=== PATIENT | male | born 1930 | race Hispanic/Latino ===

== ENCOUNTER 2017-07-02 07:50 | Day surgery (SDC) | payer MEDICARE ==
[2017-06-25 08:27] VITALS: BMI 19.0
[2017-07-02] MEDS ORDERED: Sodium Chloride 0.9% 1,000 ML IV SCH (09:45)
[2017-07-02 11:09] VITALS: RESP 16
[2017-07-02 11:19] VITALS: BP 123/64; PULSE 59
[2017-07-02 13:04] VITALS: TEMP 98; O2SAT 100
== END 2017-07-02 12:11 | disposition home or self-care (01) ==
LOC: ENDO 07:50
PROVIDERS: ATTEND Internal Medicine Gastroenterology
DX: C76.0 Malignant neoplasm of head, face and neck (principal); R13.10 Dysphagia, unspecified
CPT/HCPCS: 43246; J0690; J7040 ×2

== ENCOUNTER 2017-07-04 13:07 | Emergency (ER) | payer MEDICARE ==
[2017-07-04 13:07] VITALS: BMI 19.0
[2017-07-04 13:17] VITALS: TEMP 97.8
[2017-07-04 14:00] LABS: BASO # 0.06 K/mm3 (0.0-2.0); BASO % 0.6 % (0.0-3.0); EOS # 0.8 (0.0-0.7); EOS % 7.4 % (1.5-5.0); GRAN # 7.05 (1.4-6.5); GRAN % 64.8 % (50.0-68.0); HEMATOCRIT 34.8 % (42.0-52.0); LYMPH # 1.9 (1.2-3.4); LYMPH % 17.8 % (22.0-35.0); MEAN CELL VOLUME 87.9 fl (80.0-105.0); MEAN PLATELET VOLUME 9.8 fl (7.0-11.0); MONO % 9.4 % (1.0-6.0); RED CELL DISTRIBUTION WIDTH 13.4 % (11.5-14.5); WHITE BLOOD COUNT 10.9 10^3/ul (4.5-11.0)
[2017-07-04 14:26] LABS: ALB/GLOB RATIO 1.2 (1.1-1.8); ALKALINE PHOSPHATASE 75 U/L (38-126); ALT/SGPT 20 U/L (7-56); AST/SGOT 31 U/L (17-59); BILIRUBIN,TOTAL 1.3 mg/dL (0.2-1.3); BLOOD UREA NITROGEN 18 mg/dL (7-21); CALCIUM 9.2 mg/dL (8.4-10.5); CARBON DIOXIDE 30 mmol/L (21-33); CHLORIDE 95 mmol/L (98-107); GFR AFRICAN-AMERICAN > 60; GLUCOSE,RANDOM 96 mg/dL (70-110); LIPASE 79 U/L (23-300); POTASSIUM 3.9 mmol/L (3.6-5.0); SODIUM 132 mmol/L (132-148); TOTAL PROTEIN 7.3 g/dL (5.8-8.3)
--- NOTE | 2017-07-04 14:39 | ED PDOC ---
Arrival/HPI - General Chief Complaint: Abdominal Pain Time Seen by Provider: 07/04/17 13:11 Historian: Patient - History of Present Illness Narrative History of Present Illness (Text): 07/04/17 14:34 A 86 year old male, whose past medical history includes throat cancer and recent PEG tube placement 2 days ago, presents to the emergency department complaining of pain to site of g-tube insertion since the procedure. Patient was seen by advertising dispatch clerks supervisor earlier today, who loosened adhesion of tube from abdominal pain. Patient reports his pain subsided but presented to the emergency room for further evaluation. Patient denies any fever, chills, nausea , vomiting, urinary symptoms, hematochezia, chest pain, shortness of breath, cough or any other complaints. Time/Duration: Other (2 days) Symptom Course: Unchanged Quality: Other Context: Home Past Medical History - Provider Review Nursing Documentation Reviewed: Yes - Cardiac Hx Cardiac Disorders: No Hx Pacemaker: No - Pulmonary Hx Respiratory Disorders: Yes Other/Comment: FORMER SMOKER - Neurological Hx Neurological Disorder: No - HEENT Hx HEENT Disorder: Yes Other/Comment: THROAT CA - Renal Hx Renal Disorder: No - Endocrine/Metabolic Hx Endocrine Disorders: No - Hematological/Oncological Hx Blood Disorders: Yes Hx Cancer: Yes - Integumentary Hx Dermatological Disorder: No - Musculoskeletal/Rheumatological Hx Musculoskeletal Disorders: No - Gastrointestinal Hx Gastrointestinal Disorders: No - Genitourinary/Gynecological Hx Genitourinary Disorders: No - Psychiatric Hx Psychophysiologic Disorder: No Hx Emotional Abuse: No Hx Physical Abuse: No Hx Substance Use: No - Surgical History Other/Comment: G TUBE, PORT R UPPER CHEST. - Anesthesia Hx Anesthesia: Yes - Suicidal Assessment Feels Threatened In Home Enviroment: No Family/Social History - Physician Review Nursing Documentation Reviewed: Yes Family/Social History: No Known Family HX Smoking Status: Former Smoker Hx Alcohol Use: Yes Frequency of alcohol use: Socially Hx Substance Use: No Allergies/Home Meds Allergies/Adverse Reactions: Allergies No Known Allergies Allergy (Verified 11/30/14 12:07) Home Medications: Home Meds Medication Instructions Recorded Confirmed Metoprolol Succinate [Metoprolol 50 mg PO DAILY 12/02/14 07/04/17 Succinate Xl] Aspirin [Ecotrin] 81 mg PO DAILY 06/25/17 07/04/17 Pravastatin Sodium [Pravachol] 20 mg PO DAILY 06/25/17 07/04/17 Balance Of Nature Fruits 1 tab PO TID 06/29/17 07/04/17 Balance Of Nature Veggies 1 tab PO TID 06/29/17 07/04/17 Clopidogrel [Plavix] 75 mg PO DAILY 06/29/17 07/04/17 Ubidecarenone [Coq10] 100 mg PO DAILY 06/29/17 07/04/17 Review of Systems - Physician Review All systems were reviewed & negative as marked: Yes - Review of Systems Constitutional: absent: Fevers, Night Sweats Respiratory: absent: SOB, Cough Cardiovascular: absent: Chest Pain Gastrointestinal: absent: Nausea, Vomiting, Hematochezia Genitourinary Male: absent: Dysuria, Frequency, Hematuria Musculoskeletal: Other (pain to site of g-tube insertion) Physical Exam Vital Signs Reviewed: Yes Vital Signs Temp Pulse Resp BP Pulse Ox 07/04/17 15:53 78 19 97 07/04/17 15:07 75 18 175/86 H 100 07/04/17 13:16 97.8 F 81 18 192/91 H 100 Temperature: Afebrile Blood Pressure: Hypertensive Pulse: Regular Respiratory Rate: Normal Appearance: Positive for: Well-Appearing, Non-Toxic, Comfortable Pain Distress: None Mental Status: Positive for: Alert and Oriented X 3 - Systems Exam Head: Present: Atraumatic, Normocephalic Pupils: Present: PERRL Extroacular Muscles: Present: EOMI Conjunctiva: Present: Normal Mouth: Present: Moist Mucous Membranes Neck: Present: Normal Range of Motion Respiratory/Chest: Present: Clear to Auscultation, Good Air Exchange, Other ( Port placed on right anterior chest wall with bruising around surgical wound). No: Respiratory Distress, Accessory Muscle Use Cardiovascular: Present: Murmurs (systolic), Normal S1, S2 Abdomen: Present: Normal Bowel Sounds, Feeding Tubes (g-tube in left lower quadrant with point tenderness around area, no drainage). No: Tenderness, Distention, Peritoneal Signs Back: Present: Normal Inspection Upper Extremity: Present: Normal Inspection. No: Cyanosis, Edema Lower Extremity: Present: Normal Inspection. No: Edema Neurological: Present: GCS=15, CN II-XII Intact, Speech Normal Skin: Present: Warm, Dry, Normal Color. No: Rashes Psychiatric: Present: Alert, Oriented x 3, Normal Insight, Normal Concentration Medical Decision Making ED Course and Treatment: 07/04/17 14:34 Impression: A 86 year old male with pain to site of g-tube insertion Plan: -- Abdomen and pelvis CT -- Labs -- Urine culture -- Reassess and disposition Progress Notes: - Lab Interpretations Lab Results: 07/04/17 13:45 07/04/17 13:45 Lab Results 07/04/17 13:45: Sodium 132, Potassium 3.9, Chloride 95 L, Carbon Dioxide 30, Anion Gap 10, BUN 18, Creatinine 0.8, Est GFR ( Amer) > 60, Est GFR (Non- Af Amer) > 60, Random Glucose 96, Calcium 9.2, Total Bilirubin 1.3, AST 31, ALT 20, Alkaline Phosphatase 75, Total Protein 7.3, Albumin 4.0, Globulin 3.3, Albumin/Globulin Ratio 1.2, Lipase 79 07/04/17 13:45: WBC 10.9, RBC 3.96, Hgb 11.5 L, Hct 34.8 L, MCV 87.9, MCH 29.0, MCHC 33.0, RDW 13.4, Plt Count 260, MPV 9.8, Gran % 64.8, Lymph % (Auto) 17.8 L , [place] % (Auto) 9.4 H, Eos % (Auto) 7.4 H, Baso % (Auto) 0.6, Gran # 7.05 H, Lymph # 1.9, [place] # 1.0 H, Eos # 0.8 H, Baso # 0.06 I have reviewed the lab results: Yes - RAD Interpretation Radiology Orders: 07/04/17 13:26 ABD & PELVIS W/O PO OR IV CONT [CT] Stat - Scribe Statement The provider has reviewed the documentation as recorded by the Scribe Marnie Stearns Provider Scribe Attestation: All medical record entries made by the Scribe were at my direction and personally dictated by me. I have reviewed the chart and agree that the record accurately reflects my personal performance of the history, physical exam, medical decision making, and the department course for this patient. I have also personally directed, reviewed, and agree with the discharge instructions and disposition. Disposition/Present on Arrival - Present on Arrival Any Indicators Present on Arrival: No History of DVT/PE: No History of Uncontrolled Diabetes: No Urinary Catheter: No History of Decub. Ulcer: No History Surgical Site Infection Following: None - Disposition Have Diagnosis and Disposition been Completed?: Yes Diagnosis: Abdominal pain Disposition: HOME/ ROUTINE Disposition Time: 15:20 Condition: GOOD Discharge Instructions (ExitCare): How to Use and Care for Your PEG Tube (ED) Additional Instructions: Thank you for letting us take care of you today. You were treated for abdominal pain and PEG tube check. The emergency medical care you received today was directed at your acute symptoms. If you were prescribed any medication, please fill it and take as directed. It may take several days for your symptoms to resolve. Return to the Emergency Department if your symptoms worsen, do not improve, or if you have any other problems. Please contact your doctor or call one of the physicians/clinics you have been referred to that are listed on the Patient Visit Information form that is included in your discharge packet. Bring any paperwork you were given at discharge with you along with any medications you are taking to your follow up visit. Our treatment cannot replace ongoing medical care by a primary care provider (PCP) outside of the emergency department. Thank you for allowing the [facility] team to be part of your care today. Follow up with your oncologist as scheduled. Please return to the emergency room if you have any concerns. Referrals: Sagar CARMONA,José Antonio Villa MD [Primary Care Provider] - Follow up with primary Forms: [employer] ([place])
--- NOTE | 2017-07-04 15:04 | CT ---
PROCEDURE: CT Abdomen and Pelvis without intravenous contrast HISTORY: contrast in tube for position check COMPARISON: None. TECHNIQUE: Without contrast.. Contrast Dose: Radiation dose: Total exam DLP = 313 mGy-cm. This CT exam was performed using one or more of the following dose reduction techniques: Automated exposure control, adjustment of the mA and/or kV according to patient size, and/or use of iterative reconstruction technique. FINDINGS: LOWER THORAX: Unremarkable. LIVER: Unremarkable. No gross lesion or ductal dilatation. GALLBLADDER AND BILE DUCTS: Unremarkable. PANCREAS: Unremarkable. No gross lesion or ductal dilatation. SPLEEN: Unremarkable. ADRENALS: Unremarkable. No mass. KIDNEYS AND URETERS: Unremarkable. No hydronephrosis. No solid mass. VASCULATURE: Unremarkable. No aortic aneurysm. BOWEL: There is moderate to severe constipation especially on the right side of the colon. The gastrostomy balloon tipped catheter can be seen position within the stomach. . This can be seen on axial image 65 series 2. APPENDIX: Unremarkable. Normal appendix. PERITONEUM: Unremarkable. No free fluid. No free air. LYMPH NODES: Unremarkable. No enlarged lymph nodes. BLADDER: Unremarkable. REPRODUCTIVE: Unremarkable. BONES: No acute fracture. OTHER FINDINGS: None. IMPRESSION: The gastrostomy balloon tipped catheter can be seen in position within the stomach. Moderate to severe constipation especially on the right side of the colon. No acute intra-abdominal findings
[2017-07-04 15:39] VITALS: BP 175/86
[2017-07-04 15:54] VITALS: PULSE 78; RESP 19; O2SAT 97
== END 2017-07-04 15:53 | disposition home or self-care (01) ==
LOC: ED 13:07
DX: R10.9 Unspecified abdominal pain (principal); Z87.891 Personal history of nicotine dependence

== ENCOUNTER 2017-08-27 02:01 | Inpatient (IN) | payer MEDICARE ==
[2017-08-27 02:02] VITALS: BMI 19.0
[2017-08-27] MEDS ORDERED: Morphine 4 mg/ml ISec IVP STA (03:20)
[2017-08-27] MEDS ORDERED: Sodium Chloride 0.9% 1,000 ML IV STA (03:20)
[2017-08-27 04:11] LABS: BASO # 0.01 K/mm3 (0.0-2.0); BASO % 0.1 % (0.0-3.0); EOS # 0.2 (0.0-0.7); EOS % 2.3 % (1.5-5.0); GRAN # 6.99 (1.4-6.5); GRAN % 83.8 % (50.0-68.0); HEMOGLOBIN 12.2 g/dL (14.0-18.0); LYMPH # 0.7 (1.2-3.4); MEAN CELL VOLUME 89.2 fl (80.0-105.0); MEAN CORPUSCULAR HEMOGLOBIN 29.8 pg (25.0-35.0); MEAN CORPUSCULAR HGB CONC 33.4 g/dl (31.0-37.0); MEAN PLATELET VOLUME 9.2 fl (7.0-11.0); MONO # 0.5 (0.1-0.6); MONO % 5.8 % (1.0-6.0); RBC 4.09 10^6/uL (3.5-6.1); RED CELL DISTRIBUTION WIDTH 14.1 % (11.5-14.5); WHITE BLOOD COUNT 8.3 10^3/ul (4.5-11.0)
[2017-08-27 04:14] LABS: VENOUS BLOOD GAS BASE EXCESS 5.5 mmol/L (0.0-2.0); VENOUS BLOOD GAS PO2 26 mm/Hg (30-55); VENOUS BLOOD PH 7.37 (7.32-7.43)
[2017-08-27 04:29] LABS: ALB/GLOB RATIO 1.1 (1.1-1.8); ALBUMIN 3.7 g/dL (3.0-4.8); ALT/SGPT 46 U/L (7-56); AST/SGOT 58 U/L (17-59); BLOOD UREA NITROGEN 18 mg/dL (7-21); CALCIUM 9.3 mg/dL (8.4-10.5); GFR AFRICAN-AMERICAN > 60; GFR NON-AFRICAN AMERICAN > 60
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
[2017-08-27] MEDS ORDERED: Iohexol 350 MG/100 ML VIAL ONE (06:46)
[2017-08-27 07:01] LABS: PH,URINE 7.5 (4.7-8.0); URINE APPEARANCE CLEAR (CLEAR); URINE BILIRUBIN NEGATIVE (NEGATIVE); URINE BLOOD NEGATIVE (NEGATIVE); URINE COLOR YELLOW (YELLOW); URINE GLUCOSE (UA) NEGATIVE (NEGATIVE); URINE LEUKOCYTE ESTERASE NEGATIVE Leu/uL (NEGATIVE); URINE NITRATE NEGATIVE (NEGATIVE); URINE PROTEIN NEGATIVE mg/dL (<30 mg/dL); URINE UROBILINOGEN 0.2 E.U./dL (<1 E.U./dL)
--- NOTE | 2017-08-27 07:46 | CT ---
EXAM: CT Neck With Intravenous Contrast CLINICAL HISTORY: 86 years old, male; Condition or disease; Cancer; Throat; Additional info: Throat cancer, radiation bee, lots of pain TECHNIQUE: Axial computed tomography images of the neck with intravenous contrast. All CT scans at this facility use one or more dose reduction techniques, viz.: automated exposure control; ma/kV adjustment per patient size (including targeted exams where dose is matched to indication; i.e. head); or iterative reconstruction technique. Coronal and sagittal reformatted images were created and reviewed. CONTRAST: 100 mL of omni 350 administered intravenously. COMPARISON: CT - NECK SOFT TISSUE W/WO CONTRAST 2015-09-15 13:49 FINDINGS: Nasopharynx: Unremarkable. Oropharynx: Unremarkable. No significant tonsillar enlargement. No peritonsillar abscess. Hypopharynx: Unremarkable. Larynx: Unremarkable. Normal epiglottis. Trachea: Unremarkable. Retropharyngeal space: Unremarkable. Submandibular/parotid glands: Unremarkable. Glands are normal in size. Thyroid: Unremarkable. No enlarged or calcified nodules. Bones/joints: No acute fracture. Soft tissues: There is significant induration and swelling involving the supraglottic soft tissues (series 3, image [id number]). This is nonspecific. Differential diagnosis includes residual/recurrent tumor as well as post radiation change. 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 There are moderate calcified atherosclerotic changes of the intracranial internal carotid arteries. There are calcified atherosclerotic changes of the cervical carotid arteries. Lymph nodes: Unremarkable. No lymphadenopathy. Lung apices: There is stable scarring at both lung apices, right worse than left. IMPRESSION: 1. 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 2. There is significant induration and swelling involving the supraglottic soft tissues (series 3, image [id number]). This is nonspecific. Differential diagnosis includes residual/recurrent tumor as well as post radiation change.
[2017-08-27] MEDS ORDERED: Vancomycin 1gm in NS 250ml 1 GM/250 ML BAG IVPB STA (08:47)
[2017-08-27] MEDS ORDERED: Piperacillin/Tazobact 3.375 gm 100 ML IVPB STA (08:48)
[2017-08-27] MEDS: Morphine 2 mg/ml ISec IVP PRN ×3 (10:54→23:56)
[2017-08-27] MEDS: Vancomycin 1gm in NS 250ml 1 GM/250 ML BAG IVPB SCH ×2 (11:00→23:56)
--- NOTE | 2017-08-27 11:55 | CP.PCM.CON ---
History of Present Illness - History of Present Illness History of Present Illness: 86 year old male with PMH of throat cancer, S/P port-a-cath placement, S/P PEG tube placement has been complaining of neck pain since 2 days ago. He has received multiple doses of radiation therapy since 3 weeks ago on the left side of the neck. He has developed open wounds on the left side of the neck and has been applying Silvadene cream. Currently the wounds are open with some serosanginous coating. He denies fever or chills, no nausea or vomiting but has not been eating well and relies on the PEG tube for nutrition, no headache or dizziness, no chest pain, no SOB, no abdominal pain, no diarrhea but constipated , no dysuria. Infectious Diseases consult is requested to further evaluate and manage. Review of Systems - Review of Systems All systems: reviewed and no additional remarkable complaints except (as per HPI ) Past Patient History - Past Social History Smoking Status: Former Smoker - CARDIAC Hx Cardiac Disorders: No Hx Pacemaker: No - PULMONARY Hx Respiratory Disorders: Yes Other/Comment: FORMER SMOKER - NEUROLOGICAL Hx Neurological Disorder: No - HEENT Hx HEENT Problems: Yes Other/Comment: THROAT CA - RENAL Hx Chronic Kidney Disease: No - ENDOCRINE/METABOLIC Hx Endocrine Disorders: No - HEMATOLOGICAL/ONCOLOGICAL Hx Blood Disorders: Yes Hx Cancer: Yes - INTEGUMENTARY Hx Dermatological Problems: No - MUSCULOSKELETAL/RHEUMATOLOGICAL Hx Musculoskeletal Disorders: No - GASTROINTESTINAL Hx Gastrointestinal Disorders: No - GENITOURINARY/GYNECOLOGICAL Hx Genitourinary Disorders: No - PSYCHIATRIC Hx Psychophysiologic Disorder: No Hx Emotional Abuse: No Hx Physical Abuse: No Hx Substance Use: No - SURGICAL HISTORY Other/Comment: G TUBE, PORT R UPPER CHEST. - ANESTHESIA Hx Anesthesia: Yes Meds Allergies/Adverse Reactions: Allergies Allergy/AdvReac Type Severity Reaction Status Date / Time No Known Allergies Allergy Verified 11/30/14 12:07 - Medications Medications: Current Medications Vancomycin HCl (Vancomycin 1gm) 1 gm in 250 mls @ 167 mls/hr IVPB STAT STA PRN Reason: Protocol Stop: 08/27/17 10:16 Physical Exam - Constitutional Appears: Cachectic, Chronically Ill - Head Exam Head Exam: NORMAL INSPECTION - ENT Exam ENT Exam: Mucous Membranes Moist - Neck Exam Neck exam: Negative for: Meningismus Additional comments: left side of the neck with open wounds with surrounding erythema and coating of serosanguinous discharge - Respiratory Exam Respiratory Exam: Decreased Breath Sounds - Cardiovascular Exam Cardiovascular Exam: +S1, +S2 - GI/Abdominal Exam GI & Abdominal Exam: Soft. absent: Tenderness Additional comments: PEg tube in place Results - Vital Signs Recent Vital Signs: Last Vital Signs Temp 98.6 F 08/27/17 06:00 Pulse 85 08/27/17 06:00 Resp 18 08/27/17 06:00 BP 140/71 08/27/17 06:00 Pulse Ox 100 08/27/17 06:00 - Labs Result Diagrams: 08/27/17 03:30 08/27/17 03:30 Assessment & Plan - Assessment and Plan (Free Text) Plan: Assessment Consider left neck skin and skin structure infection on top of radiation dermatitis throat cancer on radiation therapy S/P port-a-cath placement S/P PEG tube placement Plan Started the patient on Vancomycin and Zosyn pending blood cx, wound cx; will also order Bactroban ointment will monitor clinically overall prognosis is poor
[2017-08-27] MEDS: Piperacillin/Tazobact 3.375 gm 100 ML IVPB SCH ×2 (12:33→17:10)
[2017-08-27] MEDS ORDERED: Sodium Chloride 0.9% 1,000 ML IV SCH (23:45)
[2017-08-28] MEDS: Piperacillin/Tazobact 3.375 gm 100 ML IVPB SCH ×4 (02:00→17:39)
[2017-08-28] MEDS: Silver Sulfadiazine 1% Cream (25 gm) TP SCH ×4 (05:01→22:00)
[2017-08-28] MEDS: Morphine 2 mg/ml ISec IVP PRN ×3 (06:00→18:12)
[2017-08-28] MEDS: Vancomycin 1gm in NS 250ml 1 GM/250 ML BAG IVPB SCH ×2 (10:38→22:00)
[2017-08-28] MEDS ORDERED: Aluminum Hydroxide/Magnesium 30 ML, DiphenhydrAMINE 75 MG, Lidocaine 2% Viscous 30 ML PO PRN (11:57)
--- NOTE | 2017-08-28 12:43 | CP.PCM.PN ---
<Juan Massey - Last Filed: 08/28/17 12:43> Subjective - Date & Time of Evaluation Date of Evaluation: 08/28/17 Time of Evaluation: 12:40 - Subjective Subjective: Infectious disease progress note. Attending: Dr. Cali. Pt seen and examined at bedside. NO acute distress. No current complaints. Pt does feel better. Denies fevers, chills, vomiting, diarrhea, dysuria. Objective - Vital Signs/Intake and Output Vital Signs (last 24 hours): Temp Pulse Resp BP Pulse Ox 98.8 F 97 H 20 142/77 96 08/28/17 07:30 08/28/17 07:30 08/28/17 07:30 08/28/17 07:30 08/28/17 07:30 Intake and Output: 08/28/17 08/28/17 06:59 18:59 Intake Total 0 Output Total 350 Balance -350 - Medications Medications: Current Medications Aspirin (Aspirin Chewable) 81 mg PO DAILY [facility] Clopidogrel Bisulfate (Plavix) 75 mg PO DAILY [facility] Al Hydrox/Mg Hydrox/Simethicone 30 ml/Diphenhydramine HCl 75 mg/Lidocaine 30 ml 0 ml PO Q2H PRN PRN Reason: Mouth/Throat Pain Vancomycin HCl (Vancomycin 1gm) 1 gm in 250 mls @ 167 mls/hr IVPB Q12H [facility] PRN Reason: Protocol Last Admin: 08/28/17 10:38 Dose: 167 mls/hr Piperacillin Sod/Tazobactam Sod (Zosyn 3.375 In Ns 100ml) 100 mls @ 200 mls/hr IVPB Q6 [facility] PRN Reason: Protocol Stop: 09/03/17 12:01 Last Admin: 08/28/17 11:30 Dose: 200 mls/hr Sodium Chloride (Sodium Chloride 0.9%) 1,000 mls @ 40 mls/hr IV .Q24H [facility] Last Admin: 08/28/17 00:05 Dose: 40 mls/hr Metoprolol Tartrate (Lopressor) 50 mg PO DAILY [facility] Morphine Sulfate (Morphine) 2 mg IVP Q3H PRN PRN Reason: Pain, severe (8-10) Last Admin: 08/28/17 06:00 Dose: 2 mg Mupirocin (Bactroban Ointment) 0 gm TOP BID [facility] Last Admin: 08/28/17 11:28 Dose: 1 gm Pantoprazole Sodium (Protonix Inj) 40 mg IVP DAILY [facility] Silver Sulfadiazine (Silvadene 1% 25 Gm) 1 gm TP Q8 [facility] Last Admin: 08/28/17 05:59 Dose: 1 gm - Constitutional Appears: No Acute Distress, Cachectic, Chronically Ill - Head Exam Head Exam: ATRAUMATIC, NORMAL INSPECTION, NORMOCEPHALIC - Eye Exam Eye Exam: EOMI - Neck Exam Neck Exam: absent: Meningismus, Normal Inspection Additional comments: left side neck has open wounds with surrounding erythema and coating of serosanguinous discharge, improving - Respiratory Exam Respiratory Exam: absent: Respiratory Distress - Cardiovascular Exam Cardiovascular Exam: +S1, +S2 - GI/Abdominal Exam GI & Abdominal Exam: Soft, Normal Bowel Sounds. absent: Tenderness - Extremities Exam Extremities Exam: Full ROM, Normal Inspection - Neurological Exam Neurological Exam: Alert, Awake, Oriented x3 - Psychiatric Exam Psychiatric exam: Normal Affect, Normal Mood - Skin Skin Exam: Dry, Intact, Normal Color, Warm Assessment and Plan - Assessment and Plan (Free Text) Assessment: This is an 86 yo male with past medical hx of throat cancer, s/p port placement and peg placement, currently on chemo and radiation. Recently diagnosed with radiation dermatitis. ID consulted for r/o bacterial superinfection of radiation dermatitis and abx choice. 1. Radiation dermatitis/bacterial superinfection -continue bactroban -continue vancomycin 1 g q 12 hrs to cover staph and strep associated with skin structure infection -continue zosyn 3.375 g IV q 6 hrs to cover gram negative organisms -2 blood cultures drawn on 08/27 are negative x 24 hrs -UA negative -wound culture pending -pt has been afebrile, no leukocytosis today. -clinically improving discussed with Dr. Cali. <Jemal Cali - Last Filed: 08/28/17 15:10> Objective - Vital Signs/Intake and Output Vital Signs (last 24 hours): Temp Pulse Resp BP Pulse Ox 98.8 F 97 H 20 112/48 L 96 08/28/17 07:30 08/28/17 07:30 08/28/17 07:30 08/28/17 13:46 08/28/17 07:30 Intake and Output: 08/28/17 08/28/17 06:59 18:59 Intake Total 0 720 Output Total 350 300 Balance -350 420 - Medications Medications: Current Medications Aspirin (Aspirin Chewable) 81 mg PO DAILY [facility] Last Admin: 08/28/17 13:46 Dose: 81 mg Clopidogrel Bisulfate (Plavix) 75 mg PO DAILY [facility] Last Admin: 08/28/17 13:46 Dose: 75 mg Al Hydrox/Mg Hydrox/Simethicone 30 ml/Diphenhydramine HCl 75 mg/Lidocaine 30 ml 0 ml PO Q2H PRN PRN Reason: Mouth/Throat Pain Last Admin: 08/28/17 13:46 Dose: 30 ml Vancomycin HCl (Vancomycin 1gm) 1 gm in 250 mls @ 167 mls/hr IVPB Q12H [facility] PRN Reason: Protocol Last Admin: 08/28/17 10:38 Dose: 167 mls/hr Piperacillin Sod/Tazobactam Sod (Zosyn 3.375 In Ns 100ml) 100 mls @ 200 mls/hr IVPB Q6 [facility] PRN Reason: Protocol Stop: 09/03/17 12:01 Last Admin: 08/28/17 11:30 Dose: 200 mls/hr Sodium Chloride (Sodium Chloride 0.9%) 1,000 mls @ 40 mls/hr IV .Q24H [facility] Last Admin: 08/28/17 00:05 Dose: 40 mls/hr Metoprolol Tartrate (Lopressor) 50 mg PO DAILY [facility] Last Admin: 08/28/17 13:46 Dose: Not Given Morphine Sulfate (Morphine) 2 mg IVP Q3H PRN PRN Reason: Pain, severe (8-10) Last Admin: 08/28/17 14:30 Dose: 2 mg Mupirocin (Bactroban Ointment) 0 gm TOP BID [facility] Last Admin: 08/28/17 11:28 Dose: 1 gm Pantoprazole Sodium (Protonix Inj) 40 mg IVP DAILY [facility] Last Admin: 08/28/17 13:47 Dose: 40 mg Silver Sulfadiazine (Silvadene 1% 25 Gm) 1 gm TP Q8 [facility] Last Admin: 08/28/17 13:47 Dose: 1 gm Assessment and Plan - Assessment and Plan (Free Text) Assessment: Infectious Diseases Attending Physician Attestation Patient seen and examined, discussed with medical education manager. I have reviewed the patient's subjective and objective findings, assessment and plan, as well as labs and imaging. I agree with above assessment and plan. In addition, we will continue Vancomycin and Zosyn and will continue to monitor clinically. Continue bactroban as well.
[2017-08-28 16:36] LABS: BASO # 0.02 K/mm3 (0.0-2.0); BASO % 0.3 % (0.0-3.0); EOS # 0.3 (0.0-0.7); EOS % 4.2 % (1.5-5.0); GRAN # 5.16 (1.4-6.5); GRAN % 75.2 % (50.0-68.0); HEMOGLOBIN 10.5 g/dL (14.0-18.0); LYMPH # 0.4 (1.2-3.4); MEAN CELL VOLUME 88.9 fl (80.0-105.0); MEAN CORPUSCULAR HEMOGLOBIN 29.2 pg (25.0-35.0); MEAN CORPUSCULAR HGB CONC 32.9 g/dl (31.0-37.0); MEAN PLATELET VOLUME 9.4 fl (7.0-11.0); MONO % 14.3 % (1.0-6.0); RBC 3.59 10^6/uL (3.5-6.1); RED CELL DISTRIBUTION WIDTH 14.1 % (11.5-14.5); WHITE BLOOD COUNT 6.9 10^3/ul (4.5-11.0)
[2017-08-28 21:02] LABS: ALB/GLOB RATIO 0.9 (1.1-1.8); ALBUMIN 2.7 g/dL (3.0-4.8); ALT/SGPT 36 U/L (7-56); AST/SGOT 30 U/L (17-59); BLOOD UREA NITROGEN 14 mg/dL (7-21); CALCIUM 8.1 mg/dL (8.4-10.5); GFR AFRICAN-AMERICAN > 60; GFR NON-AFRICAN AMERICAN > 60
[2017-08-29] MEDS: Piperacillin/Tazobact 3.375 gm 100 ML IVPB SCH ×4 (00:47→17:54)
--- NOTE | 2017-08-29 01:03 | CON ---
DATE: 08/28/2017 LOCATION: This patient was seen and evaluated earlier today. The patient's family was at bedside. REASON FOR CONSULTATION: Evaluation of the feeding tube. HISTORY OF PRESENT ILLNESS: This 86-year-old patient with a past medical history of throat cancer on chemo and radiation presented with acute onset of neck pain for nearly 2 days duration. The patient was receiving radiation therapy. The patient was found to have some serosanguineous secretions from the left side of the neck area being treated with antibiotics, feeling slight better. The patient was also evaluated with speech therapist and for following evaluation he was told to have only sips of clear liquids. The patient is mainly using feeding tube. Denies any discomfort now at the feeding tube site. OTHER PAST MEDICAL HISTORY: Significant as above history. SOCIAL HISTORY: Ex-smoker. REVIEW OF SYSTEMS: Positive as above. PHYSICAL EXAMINATION: GENERAL: The patient is lying on the bed, not in acute distress. VITAL SIGNS: Temperature 99.4, pulse 87, blood pressure is 127/54, respirations 20, and O2 saturation 96%. HEENT: Atraumatic. NECK: The patient has a left side of the neck has erythema and discharging skin areas noticed. HEART: S1 and S2 heard. LUNGS: Bilateral air entry present. ABDOMEN: Soft. The PEG site was covered with the dressing which was removed. The site appears to be clear. EXTREMITIES: No cyanosis. No clubbing. NEUROLOGIC: Alert, oriented, moves all the extremities. LABORATORY DATA: Hemoglobin 10.5, hematocrit 31.9, WBC 6.9, platelets 290. Chemistry is essentially unremarkable. IMPRESSION: This 86-year-old patient status post throat cancer receiving radiation therapy and also chemotherapy, admitted with cellulitis of the neck, on antibiotics. Feeling slightly better. The patient was evaluated with speech therapist recommendations noted.. The patient was advised to take only small sips of clear liquids. The PEG site appears unremarkable, otherwise. The patient was advised not to cover the PEG tube site. No significant residue, tolerating the diet. Thank you very much for allowing us to participate in the care of the patient. Pj Foreman MD MTDDania
[2017-08-29] MEDS: Silver Sulfadiazine 1% Cream (25 gm) TP SCH ×3 (06:13→22:40)
[2017-08-29 06:23] LABS: HEMOGLOBIN 9.8 g/dL (14.0-18.0); MEAN CORPUSCULAR HEMOGLOBIN 29.9 pg (25.0-35.0); MEAN CORPUSCULAR HGB CONC 33.6 g/dl (31.0-37.0); MEAN PLATELET VOLUME 9.2 fl (7.0-11.0); RBC 3.28 10^6/uL (3.5-6.1); RED CELL DISTRIBUTION WIDTH 14.1 % (11.5-14.5); WHITE BLOOD COUNT 6.7 10^3/ul (4.5-11.0)
[2017-08-29 08:00] VITALS: RESP 22
[2017-08-29] MEDS: Vancomycin 1gm in NS 250ml 1 GM/250 ML BAG IVPB SCH ×2 (11:20→22:40)
[2017-08-29] MEDS: Morphine 2 mg/ml ISec IVP PRN (12:28)
[2017-08-29] MEDS ORDERED: POLYETHYLENE GLYCOL 3350 17 GM/Dose PACKET PO ONE (12:34)
--- NOTE | 2017-08-29 13:05 | CP.PCM.PN ---
<Juan Massey - Last Filed: 08/29/17 13:07> Subjective - Date & Time of Evaluation Date of Evaluation: 08/29/17 Time of Evaluation: 13:00 - Subjective Subjective: Infectious disease progress note. Attending: Dr. Cali. Pt seen and examined at bedside. No acute distress. No events overnight. Pt feels better. Dermatitis/cellulitis improving. Objective - Vital Signs/Intake and Output Vital Signs (last 24 hours): Temp Pulse Resp BP Pulse Ox 97.6 F 87 22 130/69 96 08/29/17 07:59 08/29/17 07:59 08/29/17 07:59 08/29/17 07:59 08/29/17 07:59 Intake and Output: 08/29/17 08/29/17 06:59 18:59 Intake Total 360 Output Total 1350 Balance -990 - Medications Medications: Current Medications Aspirin (Aspirin Chewable) 81 mg PEG DAILY [facility] Last Admin: 08/29/17 10:45 Dose: 81 mg Clopidogrel Bisulfate (Plavix) 75 mg PEG DAILY [facility] Last Admin: 08/29/17 10:45 Dose: 75 mg Al Hydrox/Mg Hydrox/Simethicone 30 ml/Diphenhydramine HCl 75 mg/Lidocaine 30 ml 0 ml PO Q2H PRN PRN Reason: Mouth/Throat Pain Last Admin: 08/28/17 13:46 Dose: 30 ml Vancomycin HCl (Vancomycin 1gm) 1 gm in 250 mls @ 167 mls/hr IVPB Q12H [facility] PRN Reason: Protocol Last Admin: 08/29/17 11:20 Dose: 167 mls/hr Piperacillin Sod/Tazobactam Sod (Zosyn 3.375 In Ns 100ml) 100 mls @ 200 mls/hr IVPB Q6 [facility] PRN Reason: Protocol Stop: 09/03/17 12:01 Last Admin: 08/29/17 11:21 Dose: 200 mls/hr Sodium Chloride (Sodium Chloride 0.9%) 1,000 mls @ 40 mls/hr IV .Q24H [facility] Last Admin: 08/28/17 00:05 Dose: 40 mls/hr Metoprolol Tartrate (Lopressor) 50 mg PEG DAILY [facility] Last Admin: 08/29/17 10:45 Dose: 50 mg Morphine Sulfate (Morphine) 2 mg IVP Q3H PRN PRN Reason: Pain, severe (8-10) Last Admin: 08/29/17 12:28 Dose: 2 mg Mupirocin (Bactroban Ointment) 0 gm TOP BID [facility] Last Admin: 08/28/17 17:53 Dose: Not Given Pantoprazole Sodium (Protonix Inj) 40 mg IVP DAILY [facility] Last Admin: 08/29/17 10:45 Dose: 40 mg Silver Sulfadiazine (Silvadene 1% 25 Gm) 1 gm TP Q8 [facility] Last Admin: 08/29/17 06:13 Dose: 1 gm - Labs Labs: 08/29/17 06:00 08/28/17 20:09 - Constitutional Appears: No Acute Distress - Head Exam Head Exam: ATRAUMATIC, NORMAL INSPECTION, NORMOCEPHALIC - Eye Exam Eye Exam: EOMI - Neck Exam Neck Exam: absent: Full ROM, Normal Inspection Additional comments: radiation dermatitis along with signs of cellulitis, clinically improving - Respiratory Exam Respiratory Exam: NORMAL BREATHING PATTERN. absent: Respiratory Distress - Cardiovascular Exam Cardiovascular Exam: +S1, +S2 - GI/Abdominal Exam GI & Abdominal Exam: Soft, Normal Bowel Sounds. absent: Tenderness - Extremities Exam Extremities Exam: Full ROM, Normal Inspection - Back Exam Back Exam: NORMAL INSPECTION - Neurological Exam Neurological Exam: Alert, Awake, Oriented x3 - Psychiatric Exam Psychiatric exam: Normal Affect, Normal Mood - Skin Skin Exam: Dry, Intact, Normal Color, Warm Assessment and Plan - Assessment and Plan (Free Text) Assessment: This is an 86 yo male with past medical hx of throat cancer, s/p port placement and peg placement, currently on chemo and radiation. Recently diagnosed with radiation dermatitis. ID consulted for r/o bacterial superinfection of radiation dermatitis and abx choice. 1. Radiation dermatitis/bacterial superinfection -continue bactroban -continue vancomycin 1 g q 12 hrs to cover staph and strep associated with skin structure infection -continue zosyn 3.375 g IV q 6 hrs to cover gram negative organisms -2 blood cultures drawn on 08/27 are negative x 48 hrs -UA negative -wound culture pending -pt has been afebrile, no leukocytosis today. -clinically improving discussed with Dr. Cali. <Jemal Cali - Last Filed: 08/29/17 17:01> Objective - Vital Signs/Intake and Output Vital Signs (last 24 hours): Temp Pulse Resp BP Pulse Ox 97.6 F 87 22 130/69 96 08/29/17 07:59 08/29/17 07:59 08/29/17 07:59 08/29/17 07:59 08/29/17 07:59 Intake and Output: 08/29/17 08/29/17 06:59 18:59 Intake Total 360 Output Total 1350 800 Balance -990 -800 - Medications Medications: Current Medications Aspirin (Aspirin Chewable) 81 mg PEG DAILY [facility] Last Admin: 08/29/17 10:45 Dose: 81 mg Clopidogrel Bisulfate (Plavix) 75 mg PEG DAILY [facility] Last Admin: 08/29/17 10:45 Dose: 75 mg Al Hydrox/Mg Hydrox/Simethicone 30 ml/Diphenhydramine HCl 75 mg/Lidocaine 30 ml 0 ml PO Q2H PRN PRN Reason: Mouth/Throat Pain Last Admin: 08/28/17 13:46 Dose: 30 ml Vancomycin HCl (Vancomycin 1gm) 1 gm in 250 mls @ 167 mls/hr IVPB Q12H [facility] PRN Reason: Protocol Last Admin: 08/29/17 11:20 Dose: 167 mls/hr Piperacillin Sod/Tazobactam Sod (Zosyn 3.375 In Ns 100ml) 100 mls @ 200 mls/hr IVPB Q6 [facility] PRN Reason: Protocol Stop: 09/03/17 12:01 Last Admin: 08/29/17 11:21 Dose: 200 mls/hr Sodium Chloride (Sodium Chloride 0.9%) 1,000 mls @ 40 mls/hr IV .Q24H [facility] Last Admin: 08/28/17 00:05 Dose: 40 mls/hr Metoprolol Tartrate (Lopressor) 50 mg PEG DAILY [facility] Last Admin: 08/29/17 10:45 Dose: 50 mg Morphine Sulfate (Morphine) 2 mg IVP Q3H PRN PRN Reason: Pain, severe (8-10) Last Admin: 08/29/17 12:28 Dose: 2 mg Mupirocin (Bactroban Ointment) 0 gm TOP BID [facility] Last Admin: 08/29/17 15:31 Dose: 1 gm Pantoprazole Sodium (Protonix Inj) 40 mg IVP DAILY [facility] Last Admin: 08/29/17 10:45 Dose: 40 mg Silver Sulfadiazine (Silvadene 1% 25 Gm) 1 gm TP Q8 [facility] Last Admin: 08/29/17 15:30 Dose: 1 gm - Labs Labs: 08/29/17 06:00 08/28/17 20:09 Assessment and Plan - Assessment and Plan (Free Text) Assessment: Infectious Diseases Attending Physician Attestation Patient seen and examined, discussed with medical dosimetrist. I agree with the above findings, assessment and plan.
--- NOTE | 2017-08-29 18:47 | CP.PCM.PN ---
<Kellen,Kovil V - Last Filed: 08/30/17 00:57> Objective - Vital Signs/Intake and Output Vital Signs (last 24 hours): Temp Pulse Resp BP Pulse Ox 97.6 F 87 22 130/69 96 08/29/17 07:59 08/29/17 07:59 08/29/17 07:59 08/29/17 07:59 08/29/17 07:59 Intake and Output: 08/29/17 08/30/17 18:59 06:59 Intake Total 240 Output Total 800 400 Balance -800 -160 - Medications Medications: Current Medications Aspirin (Aspirin Chewable) 81 mg PEG DAILY [facility] Last Admin: 08/29/17 10:45 Dose: 81 mg Clopidogrel Bisulfate (Plavix) 75 mg PEG DAILY [facility] Last Admin: 08/29/17 10:45 Dose: 75 mg Al Hydrox/Mg Hydrox/Simethicone 30 ml/Diphenhydramine HCl 75 mg/Lidocaine 30 ml 0 ml PO Q2H PRN PRN Reason: Mouth/Throat Pain Last Admin: 08/28/17 13:46 Dose: 30 ml Vancomycin HCl (Vancomycin 1gm) 1 gm in 250 mls @ 167 mls/hr IVPB Q12H SIA PRN Reason: Protocol Last Admin: 08/29/17 22:40 Dose: 167 mls/hr Piperacillin Sod/Tazobactam Sod (Zosyn 3.375 In Ns 100ml) 100 mls @ 200 mls/hr IVPB Q6 SIA PRN Reason: Protocol Stop: 09/03/17 12:01 Last Admin: 08/29/17 17:54 Dose: 200 mls/hr Sodium Chloride (Sodium Chloride 0.9%) 1,000 mls @ 40 mls/hr IV .Q24H [facility] Last Admin: 08/28/17 00:05 Dose: 40 mls/hr Metoprolol Tartrate (Lopressor) 50 mg PEG DAILY [facility] Last Admin: 08/29/17 10:45 Dose: 50 mg Morphine Sulfate (Morphine) 2 mg IVP Q3H PRN PRN Reason: Pain, severe (8-10) Last Admin: 08/29/17 12:28 Dose: 2 mg Mupirocin (Bactroban Ointment) 0 gm TOP BID [facility] Last Admin: 08/29/17 15:31 Dose: 1 gm Pantoprazole Sodium (Protonix Inj) 40 mg IVP DAILY [facility] Last Admin: 08/29/17 10:45 Dose: 40 mg Silver Sulfadiazine (Silvadene 1% 25 Gm) 1 gm TP Q8 [facility] Last Admin: 08/29/17 22:40 Dose: 1 gm - Labs Labs: 08/29/17 06:00 08/28/17 20:09 Attending/Attestation - Attestation I have personally seen and examined this patient.: Yes I have fully participated in the care of the patient.: Yes I have reviewed all pertinent clinical information, including history, physical exam and plan: Yes Notes (Text): This is an addendum to GI progress report dictated by Cristela Liu APN.The patient was seen and examined earlier. Medical records, lab studies, imagings were reviewed. Last 24 hours events reviewed. Agreed with the above treatment plan as outlined in Cristela Liu APN's notes the with the addition of the following PEG site appeared clear Start her on laxatives for constipation Continue antibiotics as per ID Oncological follow-up 08/30/17 00:57 <Cristela Liu J - Last Filed: 08/31/17 10:57> Subjective - Date & Time of Evaluation Date of Evaluation: 08/29/17 Time of Evaluation: 11:45 - Subjective Subjective: Seen and examined at the bedside earlier today, chart reviewed. Patient continues to tolerate the Jevity feedings and denies any nausea, vomiting, or abdominal pain. Patient denies any neck pain, reports that slight improvement. Complains of constipation, no BM since Sunday. He normally takes Amitiza at home. Explained to patient its nonformulary at the hospital, patient states he has no one to bring medication from home. No reports of overt GI bleed or acute overnight events. Objective - Vital Signs/Intake and Output Vital Signs (last 24 hours): Temp Pulse Resp BP Pulse Ox 97.6 F 87 22 130/69 96 08/29/17 07:59 08/29/17 07:59 08/29/17 07:59 08/29/17 07:59 08/29/17 07:59 Intake and Output: 08/29/17 08/29/17 06:59 18:59 Intake Total 360 Output Total 1350 800 Balance -990 -800 - Medications Medications: Current Medications Aspirin (Aspirin Chewable) 81 mg PEG DAILY [facility] Last Admin: 08/29/17 10:45 Dose: 81 mg Clopidogrel Bisulfate (Plavix) 75 mg PEG DAILY [facility] Last Admin: 08/29/17 10:45 Dose: 75 mg Al Hydrox/Mg Hydrox/Simethicone 30 ml/Diphenhydramine HCl 75 mg/Lidocaine 30 ml 0 ml PO Q2H PRN PRN Reason: Mouth/Throat Pain Last Admin: 08/28/17 13:46 Dose: 30 ml Vancomycin HCl (Vancomycin 1gm) 1 gm in 250 mls @ 167 mls/hr IVPB Q12H SIA PRN Reason: Protocol Last Admin: 08/29/17 11:20 Dose: 167 mls/hr Piperacillin Sod/Tazobactam Sod (Zosyn 3.375 In Ns 100ml) 100 mls @ 200 mls/hr IVPB Q6 SIA PRN Reason: Protocol Stop: 09/03/17 12:01 Last Admin: 08/29/17 17:54 Dose: 200 mls/hr Sodium Chloride (Sodium Chloride 0.9%) 1,000 mls @ 40 mls/hr IV .Q24H [facility] Last Admin: 08/28/17 00:05 Dose: 40 mls/hr Metoprolol Tartrate (Lopressor) 50 mg PEG DAILY [facility] Last Admin: 08/29/17 10:45 Dose: 50 mg Morphine Sulfate (Morphine) 2 mg IVP Q3H PRN PRN Reason: Pain, severe (8-10) Last Admin: 08/29/17 12:28 Dose: 2 mg Mupirocin (Bactroban Ointment) 0 gm TOP BID [facility] Last Admin: 08/29/17 15:31 Dose: 1 gm Pantoprazole Sodium (Protonix Inj) 40 mg IVP DAILY [facility] Last Admin: 08/29/17 10:45 Dose: 40 mg Silver Sulfadiazine (Silvadene 1% 25 Gm) 1 gm TP Q8 [facility] Last Admin: 08/29/17 15:30 Dose: 1 gm - Labs Labs: 08/29/17 06:00 08/28/17 20:09 - Constitutional Appears: No Acute Distress - Eye Exam Eye Exam: Normal appearance. absent: Scleral icterus - ENT Exam ENT Exam: Mucous Membranes Moist - Neck Exam Additional comments: left-sided neck positive erythema/cellulitis no drainage noted - Cardiovascular Exam Cardiovascular Exam: +S1, +S2 - GI/Abdominal Exam GI & Abdominal Exam: Soft, Normal Bowel Sounds. absent: Guarding, Tenderness, Rebound Additional comments: positive PEG, insertion site no erythema or discharge, nontender - Neurological Exam Neurological Exam: Alert, Awake, Oriented x3 - Skin Skin Exam: Dry, Warm Assessment and Plan - Assessment and Plan (Free Text) Assessment: Assessment: Throat cancer, on radiation and chemotherapy Left side neck cellulitis Constipation Plan: Continue Jevity feedings and check residuals On aspirin and Plavix Continue GI prophylaxis Give a dose of MiraLAX Seen and discussed with Dr. Bailey.
--- NOTE | 2017-08-29 19:33 | HP ---
The patient is currently in room 562, bed 2. The patient is in the ER overnight. HISTORY OF PRESENT ILLNESS: This is an 86-year-old male who presented to the ER with increasing and worsening pain and oozing of serous fluid from the left side of his neck where he has open wounds. The patient currently has a diagnosis and is on ongoing treatment for stage LALO supraglottic laryngeal carcinoma with concurrent radiation therapy and weekly Erbitux therapy. The patient has a PEG tube in place. He is in the last stages of his radiation and probably chemo treatments. He was seen in our office prior to this, it might be 4 days ago when he was in weakened state but he was doing his PEG feedings and is thin, even though was at and was broken down in couple of places while getting topical Silvadene cream and the symptoms worsened over the weekend and hence he came to the emergency room. The patient has been having severe pain in the back of the neck, so instead of going to the radiation department, the patient decided to come to the emergency room because of the worsening pain. The patient denies any fevers, chills, chest pain, shortness of breath, nausea, vomiting, diarrhea, urinary symptoms, back pain, headache, dizziness, or any other complaints. He has been having increasing odynophagia. He has been taking his pills, crushing them and taking them with either apple sauce or just plain water after crushing it. Most of the other medicines he tried to self administer himself through the PEG tube. The patient has been giving himself fluids plus Jevity up to 5 to 6 cans a day through the PEG tube and even though he has lost weight, he did not lose more than 10% of his body weight.. PAST MEDICAL HISTORY: Significant for the fact that he has severe coronary artery disease, status post coronary artery bypass surgery. He also has history of multiple superficial skin tumors, more than 33 being either excised or lysed over the past several years. He has a history of shoulder replacement. He has a history of knee replacement as well. The patient is under the care of Dr. Rausch and Dr. Casas for his cardiologic issues. The patient denies any history of hemoptysis. No history of hematochezia. His PEG tube initially was bothering him, has not bothered him over the last few weeks while he has been getting his combined treatment. HOME MEDICATIONS: Reviewed through the office chart. The patient is on metoprolol 30 mg once a day. He is on aspirin once a day. He is on Plavix once a day, and he has been on Silvadene cream topically for his neck. He has also been using Bactroban topically around his PEG site and he said he required no pain medicines per se, and he has been on enteral feedings through his PEG tube that he has been self administering. The patient has been monitored in the radiation oncology department in [place] on a consistent basis, at least several times in a week, up to 4 times. REVIEW OF SYSTEMS: A 12-system review was done and except per the HPI what is mentioned, others are all negative. PHYSICAL EXAMINATION VITAL SIGNS: Stable. T-max is 97.9, pulse is 80, respirations 16, pulse ox is 99, and blood pressure is 135/73. The patient is afebrile. GENERAL: The patient appears to be nontoxic, comfortable. Pain scale on a scale of 0 to 10 is at least 4 to 5. Mostly the pain is in the nape of the neck and radiating down to the lateral aspect on the left side related to the extent of skin breakdown from radiation dermatitis with cumulative toxicity associated with the Erbitux as well. The patient is mentally alert, oriented x3. HEENT: Head is normocephalic and atraumatic. Conjunctivae are pale. Sclerae are anicteric. Pupils are equally reactive to light and accommodation. Examination of the oropharynx reveals the mucous membranes to be irritated. The patient has grade 2 mucositis. No gross oropharyngeal lesions are noted. Tongue appears to be on the dry side. NECK: Examination of the neck reveals range of motion to be fine. The patient has extensive skin breakdown, specifically on the left side of the neck and the nape of the neck. With full-thickness skin breakdown and with open wounds, regarding the accessory muscle use. CARDIOVASCULAR: Examination of the cardiovascular system reveals PMI is in the fifth intercostal space inside the midclavicular line. S1 and S2 are normal. No gallop or murmur is heard. ABDOMEN: Soft and nontender. No rebound rigidity or guarding is noted. PEG tube is in place. Site of the PEG tube insertion shows no evidence of infection. BACK: Examination of his back reveals it to be normal to inspection. EXTREMITIES: Upper and lower extremities reveal no cyanosis, clubbing, or edema. NEUROLOGICAL: Reveals no focal deficit. PSYCHIATRIC: The patient is awake, alert, and oriented. /RECTAL: Deferred. LYMPHATICS: There is no evidence of adenopathy in the neck, axilla, groin. SKIN: Skin is warm and dry. Turgor is slightly decreased with extensive skin changes secondary to radiation on both sides of the neck and on the anterior chest wall. There is full-thickness skin breakdown in the nape of the neck on the left side of neck. ASSESSMENT: An 86-year-old male with stage LALO supraglottic laryngeal carcinoma, currently on chemotherapy and radiation. Chemotherapy consisting of Erbitux, admitted to the hospital with worsening pain secondary to radiation-induced dermatitis along with Erbitux, with full-thickness skin tear, currently admitted to the hospital for both topical therapy and intravenous antibiotics. PLAN: The patient has already been started on broad-spectrum antibiotics with vancomycin and Zosyn. The patient is going to be seen by ID, has been already started on enteral feedings with Jevity at 40 mL an hour. In addition to that, we are going to have GI see him to address the issues as far as him able to swallow some of his pills. In the meantime, we will just keep him on clear sips of fluid, and radiation is currently on hold. We will get Radiation Oncology to make some comment as to the plan for additional radiation. Further treatments will all depend on his response to the initial antibiotics and topical therapy with Silvadene. We will get ENT consultation as well to monitor the patient is very careful. IV fluids have also been initiated. We will get Cardiology on board once the patient is stabilized. Home meds have been reviewed and have been noted as well. Time spent with the patient is about an hour to collate all the facts and to discuss with the patient what our treatment plans are and to speak to Dr. Tejada, the radiation oncologist and to the ID specialist as well. Mustapha Smith MD [facility] # [id number]
[2017-08-30] MEDS: Piperacillin/Tazobact 3.375 gm 100 ML IVPB SCH ×4 (01:32→17:46)
--- NOTE | 2017-08-30 04:11 | PN ---
DATE: 08/29/2017 ONCOLOGY PROGRESS NOTE LOCATION: The patient is in room 562, bed 2. SUBJECTIVE: This patient is seen and examined at the bedside. Charts reviewed. Patient continues to tolerate both the Jevity feedings plus he is taking clear liquids by mouth without having any significant choking sensation. No nausea, no vomiting, no significant abdominal pain. Previously noted neck pain appears to be significantly improved. Left neck area, on the nape of the neck area, where he was having pain has significantly improved since the use of the Silvadene cream and continuing the IV antibiotics. Patient complains of constipation without any bowel movements on Sunday. He normally takes Amitiza. The patient is probably going to get his home medications, which he can continue in the hospital. No overt symptoms of GI bleeding or any acute events overnight. PHYSICAL EXAMINATION: GENERAL: The patient is examined in bed. VITAL SIGNS: T-max is 97.6; pulse is 87; respirations 20; blood pressure is 130/90, 130/69; pulse ox is 96% on room air. HEENT: Head is normocephalic, atraumatic. Conjunctivae pale. Sclerae is anicteric. Pupils are equally reactive to light and accommodation. NECK: Examination of the neck reveals the ulcerations secondary to skin breakdown from radiation dermatitis, radiation necrosis in combination with the Erbitux, it is improved; it is scaling, it is healing, currently on vancomycin and Zosyn along with topical Silvadene. Patient's voice is still hoarse. Swallowing is better. He is able to take small sips of liquids. LUNGS: Relatively clear to percussion and auscultation with scattered wheezes. CARDIOVASCULAR: Examination of cardiovascular system reveals S1, S2 to be normal. No gallop or murmurs heard. ABDOMEN: Soft, nontender. No rebound, rigidity, or guarding is noted. PEG is in place. Site of the PEG insertion appears to be good without any evidence of infection. EXTREMITIES: Examination of the lower extremities reveals no cyanosis, clubbing, or edema. SKIN: Skin turgor is decreased. No skin lesions are noted except for radiation changes in the left side of the neck, underneath the neck related to the radiation. GENITOURINARY AND RECTAL: Deferred. NEUROLOGIC: His higher function seems to be normal. No focal deficits are noted. MEDICATIONS: Patient's medications were reviewed. He is currently on aspirin 81 mg daily, Plavix 75 mg via PEG daily, magic mouth wash q. 2 hours as needed, vancomycin 1 g IV piggyback q.12 hours. He is on Zosyn 3.375 mg IV piggyback q. 6 hours. He is on IV fluids at 40 mL an hour, metoprolol tartrate 50 mg via PEG daily, morphine sulphate 2 mg IV q. 3 hours p.r.n. for pain, Bactroban ointment topically b.i.d. to the PEG site, pantoprazole/Protonix 40 mg IV daily. He is on Silvadene 1% to the wounds on the left side of the neck and the nape of the neck related to the radiation. LABORATORY DATA: From today was reviewed. White count is 6.7, hemoglobin 9.8, hematocrit 29.2, platelet count 270,000. Sodium is 133, K is 3.4, chloride is 101, CO2 is 29, BUN is 18, creatinine 0.8. Blood sugar is 113. PLAN: Patient to continue current IV antibiotics. Radiation is on hold. We will check with Dr. Tejada as to what the plan should be and if we are going to scrap the last two doses of radiation. Meantime, we are going to request Dr. Casas to see the patient while he is in the hospital. Meantime, continue Jevity feedings through the PEG tube at 40 mL an hour. Once the patient starts feeling a little bit better, as well so we can get more nutrition into him. TIME SPENT WITH THE PATIENT: At least 45 minutes correlating all the findings and discussing with the patient, of which more than 50% of the time was spent in [id number] contact with the patient and counseling him regarding the findings and his overall prognosis and the direction in which we are headed. Mustapha Smith MD
[2017-08-30] MEDS: Silver Sulfadiazine 1% Cream (25 gm) TP SCH ×2 (05:53→17:46)
[2017-08-30 06:40] LABS: HEMOGLOBIN 10.5 g/dL (14.0-18.0); MEAN CELL VOLUME 88.5 fl (80.0-105.0); MEAN CORPUSCULAR HEMOGLOBIN 29.4 pg (25.0-35.0); MEAN CORPUSCULAR HGB CONC 33.2 g/dl (31.0-37.0); MEAN PLATELET VOLUME 9.3 fl (7.0-11.0); RBC 3.57 10^6/uL (3.5-6.1); RED CELL DISTRIBUTION WIDTH 13.9 % (11.5-14.5); WHITE BLOOD COUNT 6.1 10^3/ul (4.5-11.0)
[2017-08-30 07:18] LABS: ALBUMIN 2.8 g/dL (3.0-4.8); ALT/SGPT 36 U/L (7-56); AST/SGOT 35 U/L (17-59); BLOOD UREA NITROGEN 11 mg/dL (7-21); GFR AFRICAN-AMERICAN > 60; GFR NON-AFRICAN AMERICAN > 60
--- NOTE | 2017-08-30 08:16 | CON ---
DATE: 08/29/2017 CONSULTING PHYSICIAN: Javi Canela DO REFERRING PHYSICIAN: Mustapha Smith MD REASON FOR CONSULTATION: Cellulitis of the neck and history of throat cancer. HISTORY OF PRESENT ILLNESS: This is an 86-year-old male known to our Otolaryngology practice, who has past medical history of laryngeal squamous cell carcinoma diagnosed in 05/2017. The patient also has a history of coronary artery disease status post CABG in 2014, hypertension, dyslipidemia, several vascular surgeries including left lower extremity fem-pop surgery, femoral endarterectomy. He has been admitted to [facility] with radiation, dermatitis to his neck as of 08/27/2017. The patient was diagnosed with laryngeal cancer on a biopsy in 05/2017, which we performed at [facility] since then he has been undergoing radiation and chemotherapy. He just finished 7 weeks of radiation therapy and as one week left of chemotherapy. The last I saw him was in 06/2017 in my office. He presented to [facility] with swelling and cellulitic changes to his left and posterior neck. Since admission, he has been treated for cellulitis with broad-spectrum antibiotics and Emollient to his left neck. He states he is feeling much better and that his neck pain has been improving. Otherwise, he denies fever, chills, chest pain, ear, nose and throat complaints. He does note that he has been unable to swallow and eat during his treatment. He has been fed via PEG tube. He denies any difficulty breathing, shortness of breath or airway complaints. PAST MEDICAL HISTORY: As outlined above. PAST SURGICAL HISTORY: As outlined above. ALLERGIES: HE HAS NO KNOWN DRUG ALLERGIES. MEDICATIONS: He is currently on aspirin, Plavix, metoprolol, Mupirocin ointment, Protonix, Silver sulfadiazine 1% ointment, vancomycin and Zosyn. SOCIAL HISTORY: He smokes for about 30 years prior to his diagnosis of laryngeal cancer. REVIEW OF SYSTEMS: Negative as per HPI. PHYSICAL EXAMINATION GENERAL: He is awake, alert and oriented x3. No acute distress. Sitting comfortably. VITAL SIGNS: Temperature is 98.8, heart rate 97, blood pressure 147/77, respirations are 20 and O2 saturation is 96% on room air. HEENT: Head is atraumatic and normocephalic. Pupils are equal, round and reactive to light. Extraocular movements intact. External auricles are unremarkable. Nodes are unremarkable. Oral cavity; oropharynx mucosa is dry. Tongue is mobile and midline. Uvula is midline. NECK: He does have a wide area of dermatitis to his left and posterior neck extending from his auricle down to his clavicles, which is covered at this point in Emollient. Respirations are unlabored. Voice is hoarse. IMAGING: He has a CT soft tissue of the neck, which was performed on 08/27/2017 demonstrates induration . No abscesses noted. LABORATORY DATA: He has a white blood cell count of 6.7, hemoglobin 9.8, hematocrit 29.2 and platelets are 275. Sodium 136, potassium 3.4, bicarb 29, BUN 14, creatinine 0.8, glucose 118, calcium is , total protein 5.5 and albumin 2.7. ASSESSMENT AND PLAN: This is an 86-year-old male with including laryngeal cancer diagnosed in 2017, status post radiation and chemotherapy, who presents to [facility] for neck pain associated with radiation dermatitis. We will continue supportive measures at this point with sulfadiazine and Bactroban ointment to his neck as he has been improving clinically with this treatment. The antibiotics should be continued as per Infectious Disease consult. No acute ear, nose and throat intervention at this time. The patient was instructed to follow up as an outpatient once his chemoradiation therapy is completed. We will follow him for of his tumor on an outpatient basis. The patient verbalized understanding and will come to see us in the clinic. Thank you for allowing us to participate in the patient's care. Javi Canela DO
[2017-08-30 08:48] VITALS: BP 163/67; PULSE 82; TEMP 97.4; O2SAT 97
[2017-08-30] MEDS ORDERED: Alum-Mag Hydrox-Simethicone Susp (30 mL) ONE (10:48)
[2017-08-30] MEDS: Vancomycin 1gm in NS 250ml 1 GM/250 ML BAG IVPB SCH ×2 (11:00→21:37)
--- NOTE | 2017-08-30 11:50 | CP.PCM.PN ---
Subjective - Date & Time of Evaluation Date of Evaluation: 08/30/17 Time of Evaluation: 11:45 - Subjective Subjective: Mr Vila is a 86 year old gentleman who is known to our department. He has a locally advanced laryngeal cancer on chemoradiation. He has been on break, and more recently ended up in [facility] with an infection of his dermatitis. Since his hospitalization, he has been on IV antibiotics. Since two days ago, the skin has been improving significantly. On the left neck, the confluent erythema has improved. There is still residual patchy areas of moist desquamation, but no apparent purulent discharge. Objective - Vital Signs/Intake and Output Vital Signs (last 24 hours): Temp Pulse Resp BP Pulse Ox 97.4 F L 82 22 163/67 H 97 08/30/17 07:30 08/30/17 07:30 08/30/17 07:30 08/30/17 07:30 08/30/17 07:30 Intake and Output: 08/30/17 08/30/17 06:59 18:59 Intake Total 360 Output Total 1350 Balance -990 - Medications Medications: Current Medications Aspirin (Aspirin Chewable) 81 mg PEG DAILY [facility] Last Admin: 08/30/17 10:57 Dose: 81 mg Clopidogrel Bisulfate (Plavix) 75 mg PEG DAILY [facility] Last Admin: 08/30/17 10:58 Dose: 75 mg Al Hydrox/Mg Hydrox/Simethicone 30 ml/Diphenhydramine HCl 75 mg/Lidocaine 30 ml 0 ml PO Q2H PRN PRN Reason: Mouth/Throat Pain Last Admin: 08/28/17 13:46 Dose: 30 ml Vancomycin HCl (Vancomycin 1gm) 1 gm in 250 mls @ 167 mls/hr IVPB Q12H SIA PRN Reason: Protocol Last Admin: 08/30/17 11:00 Dose: 167 mls/hr Piperacillin Sod/Tazobactam Sod (Zosyn 3.375 In Ns 100ml) 100 mls @ 200 mls/hr IVPB Q6 SIA PRN Reason: Protocol Stop: 09/03/17 12:01 Last Admin: 08/30/17 05:52 Dose: 200 mls/hr Sodium Chloride (Sodium Chloride 0.9%) 1,000 mls @ 40 mls/hr IV .Q24H [facility] Last Admin: 08/28/17 00:05 Dose: 40 mls/hr Metoprolol Tartrate (Lopressor) 50 mg PEG DAILY [facility] Last Admin: 08/29/17 10:45 Dose: 50 mg Morphine Sulfate (Morphine) 2 mg IVP Q3H PRN PRN Reason: Pain, severe (8-10) Last Admin: 08/29/17 12:28 Dose: 2 mg Mupirocin (Bactroban Ointment) 0 gm TOP BID [facility] Last Admin: 08/29/17 15:31 Dose: 1 gm Pantoprazole Sodium (Protonix Inj) 40 mg IVP DAILY [facility] Last Admin: 08/30/17 10:57 Dose: 40 mg Silver Sulfadiazine (Silvadene 1% 25 Gm) 1 gm TP Q8 [facility] Last Admin: 08/30/17 05:53 Dose: 1 gm - Labs Labs: 08/30/17 06:20 08/30/17 06:20 - Neck Exam Additional comments: left neck - residual erythema with whitish cream applied. There are a few residual patchy areas of moist desquamation. The neck looks much improved since we saw him in the emergency room two days ago. - Respiratory Exam Respiratory Exam: NORMAL BREATHING PATTERN - Cardiovascular Exam Cardiovascular Exam: REGULAR RHYTHM Assessment and Plan - Assessment and Plan (Free Text) Assessment: Mr Vila is known to our department. His radiation therapy has been on hold since he developed radiation dermatitis. Unfortunately, he developed an infection during his radiation break which resulted in his hospitalization. Since he has been on IV antibiotics, his skin is slowly healing. While he is not ready to resume radiation therapy today, we are hopeful that we can resume on Sunday after a few more days break and continued skin care in the hospital/ TCU setting. We will check in on him again tomorrow to assess his clinical progress.
--- NOTE | 2017-08-30 16:49 | CP.PCM.PN ---
Subjective - Date & Time of Evaluation Date of Evaluation: 08/30/17 Time of Evaluation: 12:40 - Subjective Subjective: Patient is feeling better, less pain on the left side of the neck, no fevers overnight. Objective - Vital Signs/Intake and Output Vital Signs (last 24 hours): Temp Pulse Resp BP Pulse Ox 97.4 F L 82 22 163/67 H 97 08/30/17 07:30 08/30/17 07:30 08/30/17 07:30 08/30/17 07:30 08/30/17 07:30 Intake and Output: 08/30/17 08/30/17 06:59 18:59 Intake Total 360 Output Total 1350 Balance -990 - Medications Medications: Current Medications Aspirin (Aspirin Chewable) 81 mg PEG DAILY COUNT INCLUDES THE [facility] Last Admin: 08/29/17 10:45 Dose: 81 mg Clopidogrel Bisulfate (Plavix) 75 mg PEG DAILY COUNT INCLUDES THE [facility] Last Admin: 08/29/17 10:45 Dose: 75 mg Al Hydrox/Mg Hydrox/Simethicone 30 ml/Diphenhydramine HCl 75 mg/Lidocaine 30 ml 0 ml PO Q2H PRN PRN Reason: Mouth/Throat Pain Last Admin: 08/28/17 13:46 Dose: 30 ml Vancomycin HCl (Vancomycin 1gm) 1 gm in 250 mls @ 167 mls/hr IVPB Q12H COUNT INCLUDES THE [facility] PRN Reason: Protocol Last Admin: 08/29/17 22:40 Dose: 167 mls/hr Piperacillin Sod/Tazobactam Sod (Zosyn 3.375 In Ns 100ml) 100 mls @ 200 mls/hr IVPB Q6 [facility] PRN Reason: Protocol Stop: 09/03/17 12:01 Last Admin: 08/30/17 05:52 Dose: 200 mls/hr Sodium Chloride (Sodium Chloride 0.9%) 1,000 mls @ 40 mls/hr IV .Q24H COUNT INCLUDES THE [facility] Last Admin: 08/28/17 00:05 Dose: 40 mls/hr Metoprolol Tartrate (Lopressor) 50 mg PEG DAILY COUNT INCLUDES THE [facility] Last Admin: 08/29/17 10:45 Dose: 50 mg Morphine Sulfate (Morphine) 2 mg IVP Q3H PRN PRN Reason: Pain, severe (8-10) Last Admin: 08/29/17 12:28 Dose: 2 mg Mupirocin (Bactroban Ointment) 0 gm TOP BID COUNT INCLUDES THE [facility] Last Admin: 08/29/17 15:31 Dose: 1 gm Pantoprazole Sodium (Protonix Inj) 40 mg IVP DAILY COUNT INCLUDES THE [facility] Last Admin: 08/29/17 10:45 Dose: 40 mg Silver Sulfadiazine (Silvadene 1% 25 Gm) 1 gm TP Q8 COUNT INCLUDES THE [facility] Last Admin: 08/30/17 05:53 Dose: 1 gm - Labs Labs: 08/30/17 06:20 08/30/17 06:20 - Constitutional Appears: Chronically Ill - Head Exam Head Exam: NORMAL INSPECTION - ENT Exam ENT Exam: Mucous Membranes Moist - Neck Exam Neck Exam: absent: Meningismus Additional comments: left side of neck with raw open areas - Respiratory Exam Respiratory Exam: Decreased Breath Sounds - Cardiovascular Exam Cardiovascular Exam: +S1, +S2 - GI/Abdominal Exam GI & Abdominal Exam: Soft. 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
[2017-08-30] MEDS ORDERED: LUBIPROSTONE PO SCH (18:00)
[2017-08-30] MEDS ORDERED: Potassium Chloride 20 mEq ER Tab PO ONE (22:41)
[2017-08-30] MEDS ORDERED: Potassium Chloride 20 mEq/15 ml LIQ UD PO STA (22:54)
--- NOTE | 2017-08-31 19:41 | DS ---
This is a discharge summary from the medical floor for transfer to the transitional care floor. SUBJECTIVE: The patient is an 86-year-old male seen sitting up in bed with family at the bedside, reporting that he has significant discomfort to his left lateral neck, status post radiation treatment as per Dr. Kecia Tejada, radiation oncologist. The patient is otherwise now in no acute distress except for discomfort at his left neck area. With his nutrition now compromised and supplemented with good effect and patient now for transfer to transitional care floor for continuation of IV antibiotics as per Dr. Olivera, Infectious Disease cancer program consultant. The patient at this point is in no acute distress, speaking with a hoarse voice. 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 He had weekly Erbitux treatment in the past. He also has a PEG tube per which he is being fed Jevity. He also has significant ASCVD, status post coronary artery bypass surgery. With this the patient is otherwise for transfer for reconditioning and to continue his IV antibiotics on TCU for his radiation dermatitis on left side of the neck to heal. He also has methicillin-resistant Staphylococcus aureus positive findings as per Dr. Cali, Infectious Disease cancer program consultant. PHYSICAL EXAMINATION: VITAL SIGNS: Temperature 97.4, pulse 82, respirations 22, blood pressure 163/67, pulse ox 97%. HEENT: He speaks with a hoarse voice. NECK: Supple with radiation dermatitis changes to the left lateral neck. HEART: Regular rate. LUNGS: Clear. ABDOMEN: Scaphoid, soft, with viable PEG noted. SKIN: Warm and dry except as noted above. NEUROLOGIC: Awake and alert. LABORATORY DATA: The patient's labs were done. White blood cell count of 6.1, hemoglobin 10.5, hematocrit 31.6, platelet count of 277,000. Chem metabolic panel is showing a normal chem panel except for potassium of 3.4 with a total protein of 5.7, albumin of 2.8. ASSESSMENT: Stage LALO supraglottic laryngeal carcinoma with radiation being held. Chemotherapy with Erbitux is also being held at present with radiation dermatitis on left lateral neck. Arteriosclerotic cardiovascular disease, coronary artery disease, methicillin-resistant Staphylococcus aureus on wound culture, on intravenous antibiotic, deconditioning, percutaneous endoscopic gastrostomy tube placement, failure to thrive, status post coronary artery bypass grafting, history of multiple skin tumors, knee replacement. PLAN: He is to be transferred to transitional care floor for continuation of his antibiotics including vancomycin and Zosyn as per Dr. Cali. Also radiation to be on hold until [address] Kecia Tejada will evaluate consideration for resumption of his radiation as indicated. We will ask for a consult with Dr. Casas and Dr. Rausch of Cardiology for his ASCVD problems. We will have reconditioning on TCU with TCU protocol. We will monitor clinically with labs. His diet is Jevity as per his PEG tube feedings. We will continue his present medical regimen including IV antibiotics with vancomycin and piperacillin and tazobactam. We will also replenish his potassium as this is mildly depleted. Plavix, we will continue along with MiraLax, Lopressor, aspirin, Bactroban, Amitiza, morphine as needed for severe pain. The prognosis for this patient is guarded. Gary Zapata MD
== END 2017-08-31 00:01 | DRG 607 ==
LOC: ED 02:01 → ERH 09:14 → 5RNO 23:06
PROVIDERS: ADMIT Family Medicine; ATTEND Family Medicine
DX: L59.8 Other specified disorders of the skin and subcutaneous tissue related to radiation (principal); C32.9 Malignant neoplasm of larynx, unspecified; L03.221 Cellulitis of neck; Z93.1 Gastrostomy status; L30.9 Dermatitis, unspecified; T20.07XA Burn of unspecified degree of neck, initial encounter; E78.5 Hyperlipidemia, unspecified; I10 Essential (primary) hypertension; I25.10 Atherosclerotic heart disease of native coronary artery without angina pectoris; K59.00 Constipation, unspecified; R62.7 Adult failure to thrive; Y84.2 Radiological procedure and radiotherapy as the cause of abnormal reaction of the patient, or of later complication, without mention of misadventure at the time of the procedure; Z79.02 Long term (current) use of antithrombotics/antiplatelets; Z79.82 Long term (current) use of aspirin; Z79.899 Other long term (current) drug therapy; Z85.819 Personal history of malignant neoplasm of unspecified site of lip, oral cavity, and pharynx; Z87.891 Personal history of nicotine dependence; Z92.21 Personal history of antineoplastic chemotherapy; Z92.3 Personal history of irradiation; Z95.1 Presence of aortocoronary bypass graft; Z96.619 Presence of unspecified artificial shoulder joint; Z96.659 Presence of unspecified artificial knee joint

== ENCOUNTER 2017-08-31 00:01 | Inpatient (IN) | payer OTHER, MEDICARE ==
[2017-08-31 00:21] VITALS: BMI 19.2
[2017-08-31] MEDS ORDERED: Alum-Mag Hydrox-Simethicone Susp (30 mL) PO PRN (00:57)
[2017-08-31] MEDS: Piperacillin/Tazobact 3.375 gm 100 ML IVPB SCH ×2 (01:30→05:47)
[2017-08-31] MEDS ORDERED: Aluminum Hydroxide/Magnesium 30 ML, DiphenhydrAMINE 75 MG, Lidocaine 2% Viscous 30 ML PO PRN (01:42)
[2017-08-31] MEDS: Silver Sulfadiazine 1% Cream (25 gm) TP SCH ×4 (02:04→21:44)
[2017-08-31] MEDS: Pantoprazole 40mg/100ml IVPB 40 MG/100 ML BAG IVPB SCH (05:46)
[2017-08-31] MEDS: Vancomycin 1gm in NS 250ml 1 GM/250 ML BAG IVPB SCH ×2 (05:47→17:31)
[2017-08-31 07:16] LABS: BASO # 0.03 K/mm3 (0.0-2.0); BASO % 0.4 % (0.0-3.0); EOS # 0.4 (0.0-0.7); EOS % 5.2 % (1.5-5.0); GRAN # 4.79 (1.4-6.5); GRAN % 71.5 % (50.0-68.0); HEMOGLOBIN 9.9 g/dL (14.0-18.0); LYMPH # 0.4 (1.2-3.4); LYMPH % 5.7 % (22.0-35.0); MEAN CELL VOLUME 88.3 fl (80.0-105.0); MEAN CORPUSCULAR HEMOGLOBIN 28.9 pg (25.0-35.0); MEAN CORPUSCULAR HGB CONC 32.8 g/dl (31.0-37.0); MEAN PLATELET VOLUME 9.5 fl (7.0-11.0); MONO # 1.2 (0.1-0.6); MONO % 17.2 % (1.0-6.0); RBC 3.42 10^6/uL (3.5-6.1); RED CELL DISTRIBUTION WIDTH 13.9 % (11.5-14.5); WHITE BLOOD COUNT 6.7 10^3/ul (4.5-11.0)
[2017-08-31 07:32] LABS: ALB/GLOB RATIO 0.9 (1.1-1.8); ALBUMIN 2.4 g/dL (3.0-4.8); CALCIUM 8.2 mg/dL (8.4-10.5)
--- NOTE | 2017-08-31 10:04 | CP.PCM.PN ---
Subjective - Date & Time of Evaluation Date of Evaluation: 08/31/17 Time of Evaluation: 10:00 - Subjective Subjective: Mr Vila is a patient known to our department. He is currently in the [facility]. He is on contact precautions. He has been on break for his radiation therapy for his laryngeal cancer. In examining him today, he is feeling slightly better. Objective - Vital Signs/Intake and Output Vital Signs (last 24 hours): Temp Pulse Resp BP Pulse Ox 98.7 F 88 20 149/76 97 08/31/17 06:08 08/31/17 08:17 08/31/17 06:08 08/31/17 08:17 08/31/17 06:08 - Medications Medications: Current Medications Aspirin (Aspirin Chewable) 81 mg PEG 0800 [facility] Last Admin: 08/31/17 08:16 Dose: 81 mg Clopidogrel Bisulfate (Plavix) 75 mg PEG 0800 [facility] Last Admin: 08/31/17 08:17 Dose: 75 mg Al Hydrox/Mg Hydrox/Simethicone 30 ml/Diphenhydramine HCl 75 mg/Lidocaine 30 ml 0 ml PO Q2H PRN PRN Reason: Mouth/Throat Pain Home Med (Home Med) 1 unit PEG BID [facility] Pantoprazole Sodium (Protonix 40mg Ivpb) 40 mg in 100 mls @ 200 mls/hr IVPB 0600 [facility] Last Admin: 08/31/17 05:46 Dose: 200 mls/hr Vancomycin HCl (Vancomycin 1gm) 1 gm in 250 mls @ 167 mls/hr IVPB 0600,1800 [facility] PRN Reason: Protocol Last Admin: 08/31/17 05:47 Dose: 167 mls/hr Potassium Chloride 10 meq/ (Sodium Chloride) 1,005 mls @ 40 mls/hr IV .Q24H [facility] Last Admin: 08/31/17 01:59 Dose: 40 mls/hr Metoprolol Tartrate (Lopressor) 50 mg PEG 0800 [facility] Last Admin: 08/31/17 08:17 Dose: 50 mg Morphine Sulfate (Morphine) 2 mg IVP Q3 PRN PRN Reason: severe pain (8-10) Mupirocin (Bactroban Ointment) 1 gm TOP BID [facility] Silver Sulfadiazine (Silvadene 1% 25 Gm) 1 gm TP Q8 [facility] Last Admin: 08/31/17 05:48 Dose: 1 gm - Labs Labs: 08/31/17 06:30 08/31/17 06:30 - ENT Exam Additional comments: Examination of the left neck reveals improvement in the diffuse erythema. There is still residual moist desquamation along the inferior aspect of the neck. Assessment and Plan - Assessment and Plan (Free Text) Assessment: Mr Vila is a 86 year old gentleman with a laryngeal cancer. He is currently on break for his radiation treatment. He is currently on IV antibiotics. His skin is continuing to improve. He is not ready to resume radiation today. We will check his skin again on Sunday
--- NOTE | 2017-08-31 10:59 | CP.PCM.PN ---
<Cristela Liu - Last Filed: 08/31/17 10:57> Subjective - Date & Time of Evaluation Date of Evaluation: 08/31/17 Time of Evaluation: 09:10 - Subjective Subjective: Seen and examined at the bedside earlier today, having PT. Patient reported having bowel movement yesterday and this morning nor reports of bleeding or diarrhea. He started taking his Amitiza yesterday. Tolerating Jevity feedings , no reports of residuals. Patient denies nausea, vomiting, or abdominal pain. Objective - Vital Signs/Intake and Output Vital Signs (last 24 hours): Temp Pulse Resp BP Pulse Ox 98.7 F 88 20 149/76 97 08/31/17 06:08 08/31/17 08:17 08/31/17 06:08 08/31/17 08:17 08/31/17 06:08 - Medications Medications: Current Medications Aspirin (Aspirin Chewable) 81 mg PEG 0800 [facility] Last Admin: 08/31/17 08:16 Dose: 81 mg Clopidogrel Bisulfate (Plavix) 75 mg PEG 0800 [facility] Last Admin: 08/31/17 08:17 Dose: 75 mg Al Hydrox/Mg Hydrox/Simethicone 30 ml/Diphenhydramine HCl 75 mg/Lidocaine 30 ml 0 ml PO Q2H PRN PRN Reason: Mouth/Throat Pain Home Med (Home Med) 1 unit PEG BID [facility] Pantoprazole Sodium (Protonix 40mg Ivpb) 40 mg in 100 mls @ 200 mls/hr IVPB 0600 [facility] Last Admin: 08/31/17 05:46 Dose: 200 mls/hr Vancomycin HCl (Vancomycin 1gm) 1 gm in 250 mls @ 167 mls/hr IVPB 0600,1800 [facility] PRN Reason: Protocol Last Admin: 08/31/17 05:47 Dose: 167 mls/hr Potassium Chloride 10 meq/ (Sodium Chloride) 1,005 mls @ 40 mls/hr IV .Q24H [facility] Last Admin: 08/31/17 01:59 Dose: 40 mls/hr Metoprolol Tartrate (Lopressor) 50 mg PEG 0800 [facility] Last Admin: 08/31/17 08:17 Dose: 50 mg Morphine Sulfate (Morphine) 2 mg IVP Q3 PRN PRN Reason: severe pain (8-10) Mupirocin (Bactroban Ointment) 1 gm TOP BID [facility] Last Admin: 08/31/17 10:26 Dose: 1 applic Silver Sulfadiazine (Silvadene 1% 25 Gm) 1 gm TP Q8 [facility] Last Admin: 08/31/17 05:48 Dose: 1 gm - Labs Labs: 08/31/17 06:30 08/31/17 06:30 - Constitutional Appears: No Acute Distress - Eye Exam Eye Exam: Normal appearance. absent: Scleral icterus - ENT Exam ENT Exam: Mucous Membranes Moist - Neck Exam Additional comments: left sided neck cellulitis, noted to have cream, no drainage noted positive erythema - Respiratory Exam Respiratory Exam: NORMAL BREATHING PATTERN. absent: Respiratory Distress - Cardiovascular Exam Cardiovascular Exam: +S1, +S2 - GI/Abdominal Exam GI & Abdominal Exam: Soft, Normal Bowel Sounds. absent: Guarding, Tenderness, Rebound Additional comments: positive PEG tube, insertion site with no foul smell or drain, mild erythema, spoke to nursing to cleanse area and keep open to air. Site is nontender on palpation - Extremities Exam Extremities Exam: absent: Calf Tenderness - Neurological Exam Neurological Exam: Alert, Awake, Oriented x3 - Skin Skin Exam: Dry, Warm Assessment and Plan - Assessment and Plan (Free Text) Assessment: Assessment: Throat cancer, on radiation and chemotherapy Left side neck cellulitis Constipation Plan: Continue Jevity feedings and check residuals, consider bolus feedings so pt can be more moblie, request deitician recommendation on bolus feedings On aspirin and Plavix Continue GI prophylaxis on home med, AMitiza 25 mcg BID Seen and discussed with Dr. Bailey. <Pj Foreman V - Last Filed: 08/31/17 19:43> Objective - Vital Signs/Intake and Output Vital Signs (last 24 hours): Temp Pulse Resp BP Pulse Ox 98.6 F 79 20 137/72 96 08/31/17 18:41 08/31/17 18:41 08/31/17 18:41 08/31/17 18:41 08/31/17 18:41 - Medications Medications: Current Medications Aspirin (Aspirin Chewable) 81 mg PEG 0800 [facility] Last Admin: 08/31/17 08:16 Dose: 81 mg Clopidogrel Bisulfate (Plavix) 75 mg PEG 0800 [facility] Last Admin: 08/31/17 08:17 Dose: 75 mg Al Hydrox/Mg Hydrox/Simethicone 30 ml/Diphenhydramine HCl 75 mg/Lidocaine 30 ml 0 ml PO Q2H PRN PRN Reason: Mouth/Throat Pain Home Med (Home Med) 1 unit PEG BID [facility] Pantoprazole Sodium (Protonix 40mg Ivpb) 40 mg in 100 mls @ 200 mls/hr IVPB 0600 [facility] Last Admin: 08/31/17 05:46 Dose: 200 mls/hr Vancomycin HCl (Vancomycin 1gm) 1 gm in 250 mls @ 167 mls/hr IVPB 0600,1800 [facility] PRN Reason: Protocol Last Admin: 08/31/17 17:31 Dose: 167 mls/hr Potassium Chloride 10 meq/ (Sodium Chloride) 1,005 mls @ 40 mls/hr IV .Q24H [facility] Last Admin: 08/31/17 01:59 Dose: 40 mls/hr Metoprolol Tartrate (Lopressor) 50 mg PEG 0800 [facility] Last Admin: 08/31/17 08:17 Dose: 50 mg Morphine Sulfate (Morphine) 2 mg IVP Q3 PRN PRN Reason: severe pain (8-10) Last Admin: 08/31/17 18:27 Dose: 2 mg Mupirocin (Bactroban Ointment) 1 gm TOP BID [facility] Last Admin: 08/31/17 17:31 Dose: 1 applic Silver Sulfadiazine (Silvadene 1% 25 Gm) 1 gm TP Q8 [facility] Last Admin: 08/31/17 14:42 Dose: 1 gm - Labs Labs: 08/31/17 06:30 08/31/17 06:30 Attending/Attestation - Attestation I have personally seen and examined this patient.: Yes I have fully participated in the care of the patient.: Yes I have reviewed all pertinent clinical information, including history, physical exam and plan: Yes Notes (Text): This is an addendum to GI progress report dictated by Cristela Liu APN.The patient was seen and examined earlier. Medical records, lab studies, imagings were reviewed. Last 24 hours events reviewed. Agreed with the above treatment plan as outlined in Cristela Liu APN's notes the with the addition of the following Tolerating the feedings well PEG site was normal Discussed with the patient sitting staff regarding changing the continuous feedings to bolus feeding 08/31/17 19:42
--- NOTE | 2017-08-31 14:03 | CP.PCM.CON ---
History of Present Illness - History of Present Illness History of Present Illness: 86 year old male with PMH of throat cancer, S/P port-a-cath placement, S/P PEG tube placement was initially admitted in [facility] for neck pain and was found to have left neck radiation dermatitis with superimposed cellulitis with MRSA. He has been doing well with IV antibiotics and antibacterial cream and is now transferred to [facility] for continued medical therapy and physical rehab. Infectious Diseases consult is requested to continue his antibiotics. Currently the patient feels better, less pain in the left neck, no fevers or chills, no nausea or vomiting, no chest pain, no headache or dizziness, no nausea or vomiting, no chest pain, no SOB, no abdominal pain, no diarrhea, no dysuria. Review of Systems - Review of Systems All systems: reviewed and no additional remarkable complaints except (as per HPI ) Past Patient History - Past Social History Smoking Status: Former Smoker - CARDIAC Hx Cardiac Disorders: Yes Hx Hypercholesterolemia: Yes Hx Hypertension: Yes - PULMONARY Hx Chronic Obstructive Pulmonary Disease (COPD): Yes - NEUROLOGICAL Hx Neurological Disorder: No - HEENT Hx HEENT Problems: Yes Other/Comment: THROAT CA - RENAL Hx Chronic Kidney Disease: No - ENDOCRINE/METABOLIC Hx Endocrine Disorders: No - HEMATOLOGICAL/ONCOLOGICAL Hx Blood Disorders: Yes Hx Cancer: Yes (throat) - INTEGUMENTARY Hx Dermatological Problems: No - MUSCULOSKELETAL/RHEUMATOLOGICAL Hx Falls: Yes - GASTROINTESTINAL Hx Gastrointestinal Disorders: No Other/Comment: peg tube placement - GENITOURINARY/GYNECOLOGICAL Hx Reproductive Disorders: No - PSYCHIATRIC Hx Psychophysiologic Disorder: No - SURGICAL HISTORY Hx Surgeries: Yes Other/Comment: G TUBE, PORT R UPPER CHEST. - ANESTHESIA Hx Anesthesia: Yes Meds Allergies/Adverse Reactions: Allergies Allergy/AdvReac Type Severity Reaction Status Date / Time No Known Allergies Allergy Verified 08/31/17 00:18 - Medications Medications: Current Medications Aspirin (Aspirin Chewable) 81 mg PEG 0800 [facility] Clopidogrel Bisulfate (Plavix) 75 mg PEG 0800 [facility] Al Hydrox/Mg Hydrox/Simethicone 30 ml/Diphenhydramine HCl 75 mg/Lidocaine 30 ml 0 ml PO Q2H PRN PRN Reason: Mouth/Throat Pain Home Med (Home Med) 1 unit PEG BID [facility] Pantoprazole Sodium (Protonix 40mg Ivpb) 40 mg in 100 mls @ 200 mls/hr IVPB 0600 [facility] Last Admin: 08/31/17 05:46 Dose: 200 mls/hr Vancomycin HCl (Vancomycin 1gm) 1 gm in 250 mls @ 167 mls/hr IVPB 0600,1800 [facility] PRN Reason: Protocol Last Admin: 08/31/17 05:47 Dose: 167 mls/hr Potassium Chloride 10 meq/ (Sodium Chloride) 1,005 mls @ 40 mls/hr IV .Q24H [facility] Last Admin: 08/31/17 01:59 Dose: 40 mls/hr Metoprolol Tartrate (Lopressor) 50 mg PEG 0800 [facility] Morphine Sulfate (Morphine) 2 mg IVP Q3 PRN PRN Reason: severe pain (8-10) Mupirocin (Bactroban Ointment) 1 gm TOP BID [facility] Silver Sulfadiazine (Silvadene 1% 25 Gm) 1 gm TP Q8 [facility] Last Admin: 08/31/17 05:48 Dose: 1 gm Physical Exam - Constitutional Appears: Cachectic, Chronically Ill - Head Exam Head Exam: NORMAL INSPECTION - ENT Exam ENT Exam: Mucous Membranes Moist - Neck Exam Neck exam: Negative for: Meningismus Additional comments: left side neck with decreasing erythema but still with open areas of skin, improved oozing - Respiratory Exam Respiratory Exam: Decreased Breath Sounds - Cardiovascular Exam Cardiovascular Exam: +S1, +S2 - GI/Abdominal Exam GI & Abdominal Exam: Soft. 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
[2017-08-31] MEDS: Morphine 2 mg/ml ISec IVP PRN (18:27)
--- NOTE | 2017-09-01 01:59 | HP ---
LOCATION: Patient is in room #314, bed 1. HISTORY OF PRESENT ILLNESS: This is an 86-years old white male with diagnosis of stage LALO laryngeal carcinoma extending into and involving the thyroid and cricoid cartilage, status post Port-a-Cath placement, status post PEG placement, current chemotherapy with Erbitux and radiation until the tail end of radiation with 7 treatments remaining, was admitted acutely to the Emergency Room with severe worsening pain in the left side of the neck, near to the neck with excoriation of the skin and opening of the skin secondary to radiation dermatitis with superimposed cellulitis with MRSA. Patient has been doing well with IV antibiotics and antibacterial cream, and patient is now being transferred to the Transitional Care Unit for ongoing continued medical care and physical rehab for deconditioning. Patient is feeling better with less pain in the left neck. No fevers. No chills. No nausea or vomiting. No chest pain. No headache, no dizziness, nausea, vomiting, shortness of breath, abdominal pain, diarrhea, or dysuria. REVIEW OF SYSTEMS: A 12-system review was done. No additional reports were obtainable except for what is mentioned in the HPI. PHYSICAL EXAMINATION GENERAL: Patient is awake, alert, and oriented. Patient is examined in bed. Patient appears chronically ill. VITAL SIGNS: T-max is 98.4, pulse is 88, respirations 20, blood pressure 149/76, pulse ox is 97% on room air. HEENT: Head is normocephalic, atraumatic. Conjunctiva pale. Sclerae are anicteric. Pupils are equally reactive to light and accommodation. NECK: Examination of the oropharynx reveals no oropharyngeal lesion. Patient has still grade II to grade III mucositis orally related to an odynophagia related to the mucositis as a consequence of radiation and chemotherapy. Patient had extensive neck bee mostly on the left side hanging at the nape of the neck. With the application of Silvadene cream, the neck appears remarkably improved over the last 3 days. There is no evidence of any adenopathy. Radiation changes in the right side of the neck also have abated, hence, the patient has had a radiation break. LUNGS: Reveals it to be clear to percussion and auscultation. HEART: Reveals point of maximal impulse to be in the fifth intercostal space inside the midclavicular line. S1 and S2 are normal. No gallop or murmur is heard. ABDOMEN: Soft and nontender. PEG is in place. Side of the PEG is not inflamed and the patient is in continuous PEG feedings now at 40 mL an hour. Patient is also on IV fluids at 60 mL an hour. EXTREMITIES: Reveals no cyanosis, clubbing, or edema. NEUROLOGIC: Reveals the patient to be awake, alert, and oriented, intelligent conversation with the patient and the son who happened to be visiting the patient. NECK, AXILLA, GROIN: Examination for adenopathy reveals no adenopathy in the neck, axilla, or groin. MEDICATIONS: Patient's medications were reviewed. He is on aspirin 81 mg daily, Plavix 75 mg daily, magic mouthwash swish and swallow q. 6 hours p.r.n., pantoprazole 40 mg daily, vancomycin 1 g IV piggyback q. 12 hours. He is on potassium chloride in the IV of 1000 mL at 40 mL an hour. He is on metoprolol tartarate via PEG 50 mg daily, morphine sulfate 2 mg IV q. 3 hours p.r.n. for the pain that he was having, Bactroban ointment applied topically to the site around the PEG tube. He is on Silvadene cream applied to both sides of the neck and nape of the neck every 8 hours. LABORATORY DATA: Patient's' labs are reviewed. White count is 6.7, hemoglobin is 9.9, hematocrit 30.2, platelet count 271,000. Sodium is 138, K is 3.8, chloride is 106, CO2 is 27, BUN is 24, creatinine is 2.2, chloride is 103. ASSESSMENT AND PLAN: We will continue to monitor the patient's kidney functions very carefully. At this point in time, radiation dermatitis on the left neck with superimposed cellulitis causing MRSA is improving gradually. Detailed discussion with the patient and I spoke to the son as well describing to them as to why the patient developed the cellulitis and the skin breakdown as a result of radiation and chemotherapy, why is it necessary, what are the goals and outcomes at this point in time, and what the overall prognosis is for the patient. Patient is cognizant of the fact that we have to make him sick in order to make him better as far as radiation therapy and chemotherapy are concerned. Most of the side effects that are being seen now are combined affects of both the treatments which should get better once the treatments are completed. Patient is going to be seen by Dr. Tejada again on Sunday, and we will make a decision whether we should start the radiation again by Sunday or by Sunday. In the meantime, we will continue to monitor the patient very carefully. We will continue to get the antibiotics, vancomycin with Bactroban to complete 7 to 10 days of therapy. We will monitor his kidney functions as well with rise in creatinine. We will talk to the family and we will have renal input as well if need be. Routine post exam instructions have been given to the patient. Time spent with the patient and the son is more than 90 minutes with medically necessary and appropriate visit for this patient. Patient will be seen again tomorrow. Labs for a.m. have been requested. Hopefully with ongoing therapy, patient should start improving gradually as far as walking and getting around is concerned or his activities of daily living. Mustapha Smith MD
[2017-09-01] MEDS: Pantoprazole 40mg/100ml IVPB 40 MG/100 ML BAG IVPB SCH (05:10)
[2017-09-01] MEDS: Vancomycin 1gm in NS 250ml 1 GM/250 ML BAG IVPB SCH ×2 (05:11→17:35)
[2017-09-01] MEDS: Silver Sulfadiazine 1% Cream (25 gm) TP SCH ×3 (05:12→21:53)
[2017-09-01 07:03] LABS: ALBUMIN 2.7 g/dL (3.0-4.8); CALCIUM 8.4 mg/dL (8.4-10.5)
[2017-09-01 07:30] LABS: BASO % 0.4 % (0.0-3.0); EOS % 5.9 % (1.5-5.0); GRAN % 72.7 % (50.0-68.0); HEMOGLOBIN 10.4 g/dL (14.0-18.0); LYMPH % 9.6 % (22.0-35.0); MEAN CELL VOLUME 89.5 fl (80.0-105.0); MEAN CORPUSCULAR HEMOGLOBIN 29.6 pg (25.0-35.0); MEAN CORPUSCULAR HGB CONC 33.1 g/dl (31.0-37.0); MEAN PLATELET VOLUME 9.7 fl (7.0-11.0); MONO % 11.4 % (1.0-6.0); RBC 3.51 10^6/uL (3.5-6.1); RED CELL DISTRIBUTION WIDTH 14.1 % (11.5-14.5); WHITE BLOOD COUNT 8.3 10^3/ul (4.5-11.0)
[2017-09-01 07:31] LABS: BASO # 0.03 K/mm3 (0.0-2.0); EOS # 0.5 (0.0-0.7); GRAN # 6.04 (1.4-6.5); LYMPH # 0.8 (1.2-3.4)
[2017-09-01] MEDS: LUBIPROSTONE PO SCH ×2 (10:00→18:00)
[2017-09-01] MEDS: Morphine 2 mg/ml ISec IVP PRN ×4 (10:18→22:52)
--- NOTE | 2017-09-01 12:49 | PN ---
DATE: 09/01/2017 SUBJECTIVE: The patient is in bed, in no acute distress, nontoxic. The patient was seen earlier in room 314. PHYSICAL EXAMINATION: VITAL SIGNS: Temperature is 98, blood pressure is 150/60, respiratory rate of 20, and heart rate of 89. HEENT: Unremarkable. NECK: Supple. LUNGS: Decreased breath sounds. HEART: Normal S1 and S2. ABDOMEN: Soft and nontender. No rebound or guarding. No masses. LABORATORY DATA: Reveals the patient's white count of 8.3 and hemoglobin of 10. BUN of 30 and creatinine of 3. Microbiology is noted. ASSESSMENT AND PLAN: This is an 86-year-old male with status post throat cancer and Port-A-Cath placement, status post PEG tube placement. He was initially admitted at [facility] with neck pain and found to have left neck radiation dermatitis and superimposed cellulitis with MRSA. He was on vancomycin and Bactroban day #5 with complete 7 to 10 days of antibiotics. He is on day #5 of 7 to 10 days. Review of the orders reveal the patient's vancomycin is reactive. We will check on vancomycin level. Review of the orders reveal the patient to be receiving the vancomycin at 6:00 a.m. and 6:00 p.m. We will order vancomycin trough level for tonight at 5:00 p.m. an hour before the 6:00 p.m. dose at 1700 hours. Cuauhtemoc Olivera MD
[2017-09-02] MEDS: Vancomycin 1gm in NS 250ml 1 GM/250 ML BAG IVPB SCH (05:08)
[2017-09-02] MEDS: Pantoprazole 40mg/100ml IVPB 40 MG/100 ML BAG IVPB SCH (05:09)
[2017-09-02] MEDS: Silver Sulfadiazine 1% Cream (25 gm) TP SCH ×3 (05:09→22:19)
[2017-09-02] MEDS: LUBIPROSTONE PO SCH ×2 (09:28→17:38)
--- NOTE | 2017-09-02 10:43 | PN ---
DATE: 09/02/2017 SUBJECTIVE: The patient is in bed, in no acute distress, nontoxic. No fevers and chills. PHYSICAL EXAMINATION: VITAL SIGNS: Temperature is 98, blood pressure is 140/60, respiratory rate of 18. HEENT: Unremarkable. NECK: Supple. LUNGS: Have decreased breath sounds. HEART: Normal S1, S2. ABDOMEN: Soft, nontender. LABORATORY EXAMINATION: Reveals a white count of 8.3, hemoglobin of 10, platelets of 292, BUN of 30, creatinine of 3.0. Toxicology is noted. Vancomycin trough of 39.9. I was not notified of this. ASSESSMENT AND PLAN: He is an 86-year-old male with status post throat cancer with Port-A-Cath placement, status post percutaneous endoscopic gastrostomy tube placement, was admitted to [place] with neck pain, found to have a left neck radiation dermatitis superimposed with methicillin-resistant Staphylococcus aureus cellulitis, on vancomycin and Bactroban day #6 with a high vancomycin trough level of 39. We will discontinue the vancomycin at this point and the patient with renal failure of creatinine of 3.0. Acute kidney injury. We will repeat vancomycin level and random level and a chemistry in a.m. We will follow closely with you. We will order a urinalysis, recommend a renal consultation. Cuauhtemoc Olivera MD
--- NOTE | 2017-09-02 11:36 | US ---
PROCEDURE: Ultrasound of the Kidneys HISTORY: r/o hydro COMPARISON: None available. TECHNIQUE: Sonogram of the kidneys. FINDINGS: RIGHT KIDNEY: Measures: 9.25 x 4.57 x 5.89 cm. Normal in size, contour and echogenicity. No stone, solid mass lesion or hydronephrosis visualized. LEFT KIDNEY: Measures: 9.86 x 6.19 x 5.69 cm. Normal in size, contour and echogenicity. No stone, solid mass lesion or hydronephrosis visualized. OTHER FINDINGS: None. IMPRESSION: Unremarkable renal sonogram.
[2017-09-02] MEDS: Morphine 2 mg/ml ISec IVP PRN ×4 (11:49→21:37)
[2017-09-02 16:30] LABS: URINE BILIRUBIN NEGATIVE (NEGATIVE); URINE BLOOD NEGATIVE (NEGATIVE); URINE GLUCOSE (UA) NEGATIVE (NEGATIVE); URINE LEUKOCYTE ESTERASE NEGATIVE Leu/uL (NEGATIVE); URINE NITRATE NEGATIVE (NEGATIVE); URINE PROTEIN NEGATIVE mg/dL (<30 mg/dL); URINE UROBILINOGEN 0.2 E.U./dL (<1 E.U./dL)
[2017-09-02 16:36] LABS: URINE APPEARANCE CLEAR (CLEAR); URINE COLOR YELLOW (YELLOW)
--- NOTE | 2017-09-02 16:58 | CP.PCM.PN ---
Subjective - Date & Time of Evaluation Date of Evaluation: 09/01/17 Time of Evaluation: 19:00 - Subjective Subjective: No acute events. Had BM. Denies neck pain at present associated with infection ROS: 12 ROS negative pain: denies. Objective - Vital Signs/Intake and Output Vital Signs (last 24 hours): Temp Pulse Resp BP Pulse Ox 98.2 F 87 16 149/75 98 09/01/17 16:00 09/02/17 08:49 09/01/17 16:00 09/02/17 08:49 09/01/17 16:00 - Medications Medications: Current Medications Aspirin (Aspirin Chewable) 81 mg PEG 0800 [facility] Last Admin: 09/02/17 08:49 Dose: 81 mg Clopidogrel Bisulfate (Plavix) 75 mg PEG 0800 [facility] Last Admin: 09/02/17 08:49 Dose: 75 mg Al Hydrox/Mg Hydrox/Simethicone 30 ml/Diphenhydramine HCl 75 mg/Lidocaine 30 ml 0 ml PO Q2H PRN PRN Reason: Mouth/Throat Pain Home Med (Home Med) 1 unit PO BID [facility] Last Admin: 09/02/17 09:28 Dose: 1 unit Pantoprazole Sodium (Protonix 40mg Ivpb) 40 mg in 100 mls @ 200 mls/hr IVPB 0600 [facility] Last Admin: 09/02/17 05:09 Dose: 200 mls/hr Potassium Chloride 10 meq/ (Sodium Chloride) 1,005 mls @ 40 mls/hr IV .Q24H [facility] Last Admin: 09/02/17 01:42 Dose: 40 mls/hr Metoprolol Tartrate (Lopressor) 50 mg PEG 0800 [facility] Last Admin: 09/02/17 08:49 Dose: 50 mg Morphine Sulfate (Morphine) 2 mg IVP Q3 PRN PRN Reason: severe pain (8-10) Last Admin: 09/02/17 15:31 Dose: 2 mg Mupirocin (Bactroban Ointment) 1 gm TOP BID [facility] Last Admin: 09/02/17 09:27 Dose: 1 applic Silver Sulfadiazine (Silvadene 1% 25 Gm) 1 gm TP Q8 [facility] Last Admin: 09/02/17 14:55 Dose: 1 gm - Labs Labs: 09/01/17 06:35 09/01/17 06:35 - Constitutional Appears: Well - ENT Exam Additional comments: Erythema and peeling of skin evident on left lateral aspect of neck. not warm to touch - Respiratory Exam Respiratory Exam: Clear to Ausculation Bilateral, NORMAL BREATHING PATTERN - Cardiovascular Exam Cardiovascular Exam: REGULAR RHYTHM, +S1, +S2. absent: Murmur - GI/Abdominal Exam GI & Abdominal Exam: Soft, Normal Bowel Sounds. absent: Tenderness - Extremities Exam Extremities Exam: Full ROM, Normal Capillary Refill, Normal Inspection. 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 Patient course complicated by EUGENIA. Appreciate ID and REnal recommendations . Awaiting repeat speach and swallow eval. Patient continue to get continuous PEG feeds with limited PO intake Kush Smith MD Oncology Service
--- NOTE | 2017-09-02 17:03 | CP.PCM.PN ---
Subjective - Date & Time of Evaluation Date of Evaluation: 09/02/17 Time of Evaluation: 16:00 - Subjective Subjective: No acute events over night ROS: 12 ROS otherwise negative Pain: denies Objective - Vital Signs/Intake and Output Vital Signs (last 24 hours): Temp Pulse Resp BP Pulse Ox 98.2 F 87 16 149/75 98 09/01/17 16:00 09/02/17 08:49 09/01/17 16:00 09/02/17 08:49 09/01/17 16:00 - Medications Medications: Current Medications Aspirin (Aspirin Chewable) 81 mg PEG 0800 [facility] Last Admin: 09/02/17 08:49 Dose: 81 mg Clopidogrel Bisulfate (Plavix) 75 mg PEG 0800 [facility] Last Admin: 09/02/17 08:49 Dose: 75 mg Al Hydrox/Mg Hydrox/Simethicone 30 ml/Diphenhydramine HCl 75 mg/Lidocaine 30 ml 0 ml PO Q2H PRN PRN Reason: Mouth/Throat Pain Home Med (Home Med) 1 unit PO BID [facility] Last Admin: 09/02/17 09:28 Dose: 1 unit Pantoprazole Sodium (Protonix 40mg Ivpb) 40 mg in 100 mls @ 200 mls/hr IVPB 0600 [facility] Last Admin: 09/02/17 05:09 Dose: 200 mls/hr Potassium Chloride 10 meq/ (Sodium Chloride) 1,005 mls @ 40 mls/hr IV .Q24H [facility] Last Admin: 09/02/17 01:42 Dose: 40 mls/hr Metoprolol Tartrate (Lopressor) 50 mg PEG 0800 [facility] Last Admin: 09/02/17 08:49 Dose: 50 mg Morphine Sulfate (Morphine) 2 mg IVP Q3 PRN PRN Reason: severe pain (8-10) Last Admin: 09/02/17 15:31 Dose: 2 mg Mupirocin (Bactroban Ointment) 1 gm TOP BID [facility] Last Admin: 09/02/17 09:27 Dose: 1 applic Silver Sulfadiazine (Silvadene 1% 25 Gm) 1 gm TP Q8 [facility] Last Admin: 09/02/17 14:55 Dose: 1 gm - Labs Labs: 09/01/17 06:35 09/01/17 06:35 - Constitutional Appears: Well - Neck Exam Additional comments: dermatitis and erythema evident on left lateral aspect of neck. Unchanged. with some skin peeling - Respiratory Exam Respiratory Exam: Clear to Ausculation Bilateral, NORMAL BREATHING PATTERN - Cardiovascular Exam Cardiovascular Exam: REGULAR RHYTHM, +S1, +S2. absent: Murmur - Extremities Exam Extremities Exam: Full ROM, Normal Capillary Refill, Normal Inspection. 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 Patient course complicated by EUGENIA in setting of supratherapeuthic vanc trough. HOlding vancomycin and obtianin Renal Us and US. appreciate ID and REnal recommendations. patient awaits repeat speach and swallow eval and continues on continuous PEG tube feeds. Kush Smith Md Oncology Service
[2017-09-03] MEDS: Pantoprazole 40mg/100ml IVPB 40 MG/100 ML BAG IVPB SCH (05:58)
[2017-09-03] MEDS: Morphine 2 mg/ml ISec IVP PRN (05:58)
[2017-09-03] MEDS: Silver Sulfadiazine 1% Cream (25 gm) TP SCH ×3 (06:49→21:05)
[2017-09-03 08:03] LABS: ALB/GLOB RATIO 0.9 (1.1-1.8); ALBUMIN 2.5 g/dL (3.0-4.8); CALCIUM 8.2 mg/dL (8.4-10.5)
[2017-09-03] MEDS: LUBIPROSTONE PO SCH ×2 (10:11→17:35)
--- NOTE | 2017-09-03 10:12 | CP.PCM.PN ---
Subjective - Date & Time of Evaluation Date of Evaluation: 09/03/17 Time of Evaluation: 10:07 - Subjective Subjective: Patient seen and examined at bedside. Patient with no acute events overnight and no complaints at this time. Denies chest pain, shortness of breath, nausea, vomiting, diarrhea, headache, fever. Objective - Vital Signs/Intake and Output Vital Signs (last 24 hours): Temp Pulse Resp BP Pulse Ox 98.1 F 90 15 146/83 98 09/02/17 17:00 09/03/17 08:23 09/02/17 17:00 09/03/17 08:23 09/02/17 17:00 - Medications Medications: Current Medications Aspirin (Aspirin Chewable) 81 mg PEG 0800 [facility] Last Admin: 09/03/17 08:23 Dose: 81 mg Clopidogrel Bisulfate (Plavix) 75 mg PEG 0800 [facility] Last Admin: 09/03/17 08:23 Dose: 75 mg Al Hydrox/Mg Hydrox/Simethicone 30 ml/Diphenhydramine HCl 75 mg/Lidocaine 30 ml 0 ml PO Q2H PRN PRN Reason: Mouth/Throat Pain Home Med (Home Med) 1 unit PO BID [facility] Last Admin: 09/02/17 17:38 Dose: Not Given Pantoprazole Sodium (Protonix 40mg Ivpb) 40 mg in 100 mls @ 200 mls/hr IVPB 0600 [facility] Last Admin: 09/03/17 05:58 Dose: 200 mls/hr Potassium Chloride 10 meq/ (Sodium Chloride) 1,005 mls @ 40 mls/hr IV .Q24H [facility] Last Admin: 09/03/17 02:28 Dose: 40 mls/hr Metoprolol Tartrate (Lopressor) 50 mg PEG 0800 [facility] Last Admin: 09/03/17 08:23 Dose: 50 mg Morphine Sulfate (Morphine) 2 mg IVP Q3 PRN PRN Reason: severe pain (8-10) Last Admin: 09/03/17 05:58 Dose: 2 mg Mupirocin (Bactroban Ointment) 1 gm TOP BID [facility] Last Admin: 09/02/17 18:01 Dose: 1 applic Silver Sulfadiazine (Silvadene 1% 25 Gm) 1 gm TP Q8 [facility] Last Admin: 09/03/17 06:49 Dose: 1 gm - Labs Labs: 09/01/17 06:35 09/03/17 06:30 - Constitutional Appears: Non-toxic, No Acute Distress - Head Exam Head Exam: ATRAUMATIC, NORMAL INSPECTION, NORMOCEPHALIC - Respiratory Exam Respiratory Exam: Clear to Ausculation Bilateral, NORMAL BREATHING PATTERN. absent: Rales, Rhonchi, Wheezes - Cardiovascular Exam Cardiovascular Exam: RRR, +S1, +S2 - GI/Abdominal Exam GI & Abdominal Exam: Soft, Normal Bowel Sounds. absent: Tenderness - Extremities Exam Extremities Exam: Normal Inspection. absent: Pedal Edema, Tenderness - Neurological Exam Neurological Exam: Alert, Awake, Oriented x3 - Psychiatric Exam Psychiatric exam: Normal Affect, Normal Mood - Skin Additional comments: Dermatitis and scabbing of left lateral aspect of neck. No drainage or pus noted. 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 Patient with EUGENIA likely secondary to Vancomycin use. Vancomycin level yesterday elevated. Vancomycin held at this time. Renal ultrasound from yesterday demonstrates no abnormalities. Will obtain nephrology consultation. Speech and swallow recommends pureed foods with thin liquids. Will continue PEG tube feeds at this time. Plan discussed with Dr. Smith.
[2017-09-03] MEDS: Sodium Chloride 0.45% 1,000 ML IV SCH (14:38)
[2017-09-03 15:31] LABS: BASO # 0.05 K/mm3 (0.0-2.0); BASO % 0.5 % (0.0-3.0); EOS # 0.5 (0.0-0.7); EOS % 4.8 % (1.5-5.0); GRAN # 7.64 (1.4-6.5); GRAN % 78.8 % (50.0-68.0); HEMOGLOBIN 10.3 g/dL (14.0-18.0); LYMPH # 0.7 (1.2-3.4); LYMPH % 7.3 % (22.0-35.0); MEAN CELL VOLUME 89.8 fl (80.0-105.0); MEAN CORPUSCULAR HEMOGLOBIN 29.3 pg (25.0-35.0); MEAN CORPUSCULAR HGB CONC 32.6 g/dl (31.0-37.0); MEAN PLATELET VOLUME 9.5 fl (7.0-11.0); MONO # 0.8 (0.1-0.6); MONO % 8.6 % (1.0-6.0); RBC 3.52 10^6/uL (3.5-6.1); RED CELL DISTRIBUTION WIDTH 14.4 % (11.5-14.5); WHITE BLOOD COUNT 9.7 10^3/ul (4.5-11.0)
--- NOTE | 2017-09-03 15:53 | CP.PCM.PN ---
Subjective - Date & Time of Evaluation Date of Evaluation: 09/03/17 Time of Evaluation: 09:50 - Subjective Subjective: Seen and examined earlier today, chart reviewed. Patient last bowel movement was yesterday denies any diarrhea, continues to take Amitiza. No complaints of nausea, vomiting, or abdominal pain. Or overt GI bleed. Patient tolerates this little sips of water. had swallowing evaluation and recommended puree/Thin liquid. Objective - Vital Signs/Intake and Output Vital Signs (last 24 hours): Temp Pulse Resp BP Pulse Ox 98.1 F 90 15 146/83 98 09/02/17 17:00 09/03/17 08:23 09/02/17 17:00 09/03/17 08:23 09/02/17 17:00 - Medications Medications: Current Medications Aspirin (Aspirin Chewable) 81 mg PEG 0800 [facility] Last Admin: 09/03/17 08:23 Dose: 81 mg Clopidogrel Bisulfate (Plavix) 75 mg PEG 0800 [facility] Last Admin: 09/03/17 08:23 Dose: 75 mg Al Hydrox/Mg Hydrox/Simethicone 30 ml/Diphenhydramine HCl 75 mg/Lidocaine 30 ml 0 ml PO Q2H PRN PRN Reason: Mouth/Throat Pain Home Med (Home Med) 1 unit PO BID [facility] Last Admin: 09/03/17 10:11 Dose: 1 unit Pantoprazole Sodium (Protonix 40mg Ivpb) 40 mg in 100 mls @ 200 mls/hr IVPB 0600 [facility] Last Admin: 09/03/17 05:58 Dose: 200 mls/hr Sodium Chloride (Sodium Chloride 0.45%) 1,000 mls @ 40 mls/hr IV .Q24H [facility] Last Admin: 09/03/17 14:38 Dose: 40 mls/hr Metoprolol Tartrate (Lopressor) 50 mg PEG 0800 [facility] Last Admin: 09/03/17 08:23 Dose: 50 mg Morphine Sulfate (Morphine) 2 mg IVP Q3 PRN PRN Reason: severe pain (8-10) Last Admin: 09/03/17 05:58 Dose: 2 mg Mupirocin (Bactroban Ointment) 1 gm TOP BID [facility] Last Admin: 09/03/17 10:11 Dose: 1 applic Silver Sulfadiazine (Silvadene 1% 25 Gm) 1 gm TP Q8 [facility] Last Admin: 09/03/17 14:37 Dose: 1 gm - Labs Labs: 09/03/17 15:15 09/03/17 06:30 - Constitutional Appears: No Acute Distress - Eye Exam Eye Exam: Normal appearance. absent: Scleral icterus - ENT Exam ENT Exam: Mucous Membranes Moist - Neck Exam Additional comments: left neck cellulitis slowly improving. - Respiratory Exam Respiratory Exam: NORMAL BREATHING PATTERN. absent: Respiratory Distress - Cardiovascular Exam Cardiovascular Exam: +S1, +S2 - GI/Abdominal Exam GI & Abdominal Exam: Soft, Normal Bowel Sounds. absent: Guarding, Tenderness, Organomegaly, Rebound Additional comments: PEG site in place, try and intact. - Neurological Exam Neurological Exam: Alert, Awake, Oriented x3 Assessment and Plan - Assessment and Plan (Free Text) Assessment: Assessment: Throat cancer, on radiation and chemotherapy Left side neck cellulitis Constipation Plan: Continue Jevity feedings and check residuals, dietitian recommendations on bolus noted, patient wants to stay on continuous feedings. On aspirin and Plavix Continue GI prophylaxis on home med, AMitiza 25 mcg BID Spoke to speech therapist Martine Randle, recommends patient have modified barium swallow prior to starting any oral feeds, sips clear liquids okay. Case discussed with Dr. Jernigan who is covering Dr. Foreman.
[2017-09-03 17:51] LABS: URINE BILIRUBIN NEGATIVE (NEGATIVE); URINE BLOOD TRACE-INTACT (NEGATIVE); URINE GLUCOSE (UA) NEGATIVE (NEGATIVE); URINE LEUKOCYTE ESTERASE NEGATIVE Leu/uL (NEGATIVE); URINE NITRATE NEGATIVE (NEGATIVE); URINE PROTEIN NEGATIVE mg/dL (<30 mg/dL); URINE UROBILINOGEN 0.2 E.U./dL (<1 E.U./dL)
[2017-09-03 17:52] LABS: URINE APPEARANCE CLEAR (CLEAR); URINE COLOR YELLOW (YELLOW)
[2017-09-03 17:54] LABS: URINE RBC 0 - 2 /hpf (0-2); URINE WBC 0 - 2 /hpf (0-6)
[2017-09-03 18:12] LABS: CREATININE,RANDOM URINE 31 mg/dL
--- NOTE | 2017-09-03 18:56 | PN ---
DATE: 09/03/2017 SUBJECTIVE: Patient is in bed, in no acute distress, nontoxic, and was seen earlier. No fevers and chills. PHYSICAL EXAMINATION: VITAL SIGNS: Temperature is 98, blood pressure is 160/70, respiratory rate of 15, heart rate of 78. HEENT: Unremarkable. NECK: Supple. LUNGS: Have decreased breath sounds. HEART: Normal S1, S2. ABDOMEN: Soft, nontender. LABORATORY EXAMINATION: Reveals a white count of 8.3, hemoglobin of 10. Chemistries reveals the patient's creatinine is up to 3.5 and urinalysis is noted, essentially unremarkable urinalysis and completely normal urinalysis. reveals the patient's vanco random level of 42 and microbiology reveals urine cultures are negative and review of orders reveals the patient to be off of antibiotics. 's progress note is reviewed and Dr. Smith's note is also reviewed. ASSESSMENT AND PLAN: This is an 86-year-old male seen earlier and is status post throat cancer, status post Port-A-Cath and percutaneous endoscopic gastrostomy tube placement, admitted with neck pain, found to have a left neck radiation dermatitis superimposed with methicillin-resistant Staphylococcus aureus cellulitis and vancomycin, and developed supratherapeutic vancomycin levels and acute kidney injury. Vancomycin on hold and I suspect the renal function should improve. Patient did have an ultrasound of the kidney which was reported to be normal. We will order chemistries for a.m. and a vancomycin random level in a.m. also. We will follow closely with you. Cuauhtemoc Olivera MD
--- NOTE | 2017-09-04 00:20 | CON ---
DATE: 09/03/2017 REASON FOR CONSULTATION: Acute kidney injury, worsening renal function. HISTORY OF PRESENTING ILLNESS: An 86-year-old male, previously unknown to me, is seen in the Transitional Care Unit. The patient was initially admitted on 08/29/2017 to the medical side with complaints of severe pain in the back of his neck. Radiation burn. The patient was receiving radiation for his throat cancer. He was admitted through the emergency room with increasing and worsening pain and oozing of serous fluid from the left side of his neck where he had open wounds. He was thought to have radiation-induced dermatitis along with Erbitux resulting in a full-thickness skin tear. The patient was admitted for both local therapy and intravenous antibiotics. He was treated with vancomycin 1 g q. 12. He also received Zosyn 3.375 g q. 6 hours. At the time of presentation, his creatinine was 0.8. The patient was transferred to the Transitional Care Unit on 08/31/2017. At that time, his creatinine has risen to 2.2. Consultation is requested for acute kidney injury. His creatinine today has risen to 3.5. His wound culture showed MRSA. Etiology of his acute kidney injury is not entirely clear. There is no evidence of any hypotension. It appears that his Zofran was discontinued on 08/31/2017 and his vancomycin was last given on 09/02/2017. 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 FAMILY HISTORY: Noncontributory. SOCIAL HISTORY: No smoking, no alcohol use, no IV drug abuse. ALLERGIES: NO KNOWN DRUG ALLERGIES. MEDICATIONS: At this time include Plavix, aspirin, Bactroban, lubiprostone, Lopressor 50, morphine, Plavix, Protonix, Silvadene, 10 mEq of KCl was given this morning. REVIEW OF SYSTEMS: The patient denies any nausea, vomiting. He denies any diarrhea. He complains of constipation. He reports that he is being fed by the PEG. He denies any chest tightness. He denies any shortness of breath. He feels well. All other systems are reviewed and unremarkable. PHYSICAL EXAMINATION: GENERAL: Thinly built elderly male, lying in bed. VITAL SIGNS: Blood pressure 146/83, heart rate 90, respiratory rate 16-18, temperature 98. HEENT: Normocephalic, atraumatic, positive pallor. NECK: Supple. No JVD. Diffuse excoriation on the left side of the neck. No open ulcers of this time. LUNGS: Bilateral equal entry, bilateral equal expansion, right-sided port. CARDIAC: S1 and S2. Regular rate and rhythm. No murmur, no rub. Positive midline scar. ABDOMEN: Soft, nondistended, nontender, positive PEG. EXTREMITIES: No lower extremity edema. INTAKE AND OUTPUT: Not charted. LABORATORY DATA: WBC 8, hemoglobin 10, hematocrit 31, platelets 292, polys 73%, lymphs 9.6, monos 11, eosinophils 5.9. Sodium 144, potassium 4.5, chloride 111, CO2 of 24, BUN 38, creatinine 3.5, glucose 100, calcium 8.2, albumin 2.5. Random vanco level 42.5. ASSESSMENT: 1. Acute kidney injury, rapidly rising creatinine. Creatinine has risen from 0.6 to 3.5 in the last 96 hours. 2. Suspect acute tubular necrosis secondary to nephrotoxins. Likely secondary to vancomycin. His vancomycin levels were extremely high. 3. Need to consider acute interstitial nephritis also since his peripheral eosinophil count has gone up. This could be secondary to his Zosyn. 4. Stage IV laryngeal cancer. 5. Coronary artery disease, coronary artery bypass graft, currently compensated. PLAN: 1. Check urine eosinophils. 2. Check urine sodium. Check urine creatinine. Repeat urinalysis. CBC with differential. 3. Gentle hydration. 4. Avoid nephrotoxins. 5. Antibiotics have already been discontinued. Thank you for the courtesy of this consultation. We will follow this patient closely with you. Marissa Cohen MD
[2017-09-04] MEDS: Pantoprazole 40mg/100ml IVPB 40 MG/100 ML BAG IVPB SCH (05:50)
[2017-09-04] MEDS: Silver Sulfadiazine 1% Cream (25 gm) TP SCH ×3 (05:51→22:00)
[2017-09-04 07:51] LABS: HEMOGLOBIN 10.2 g/dL (14.0-18.0); MEAN CELL VOLUME 89.2 fl (80.0-105.0); MEAN CORPUSCULAR HEMOGLOBIN 29.1 pg (25.0-35.0); MEAN CORPUSCULAR HGB CONC 32.6 g/dl (31.0-37.0); MEAN PLATELET VOLUME 9.4 fl (7.0-11.0); RBC 3.51 10^6/uL (3.5-6.1); RED CELL DISTRIBUTION WIDTH 14.4 % (11.5-14.5)
[2017-09-04 08:38] LABS: ALBUMIN 2.7 g/dL (3.0-4.8); CALCIUM 8.3 mg/dL (8.4-10.5)
--- NOTE | 2017-09-04 09:03 | PN ---
ADDENDUM DATE: 09/03/2017 I personally examined this patient. I reviewed all the recent laboratory data. I agree with Cristela Liu' assessment and recommendations. The patient is tolerating PEG feeding and we will continue with feeding as per the patient preference as suppose to bolus feeding. Atul Jernigan MD
[2017-09-04] MEDS: LUBIPROSTONE PO SCH ×2 (09:59→17:31)
--- NOTE | 2017-09-04 10:29 | CP.PCM.PN ---
Subjective - Date & Time of Evaluation Date of Evaluation: 09/04/17 Time of Evaluation: 10:23 - Subjective Subjective: Patient seen and examined at bedside. Patient with no acute events overnight. Patient states neck pain has improved. No further complaints. Denies Chest pain , nausea, vomiting, diarrhea, headache, shortness of breath. Objective - Vital Signs/Intake and Output Vital Signs (last 24 hours): Temp Pulse Resp BP Pulse Ox 97.8 F 86 20 162/78 H 93 L 09/03/17 17:48 09/04/17 07:52 09/03/17 17:48 09/04/17 07:52 09/03/17 17:48 - Medications Medications: Current Medications Aspirin (Aspirin Chewable) 81 mg PEG 0800 [facility] Last Admin: 09/04/17 07:52 Dose: 81 mg Clopidogrel Bisulfate (Plavix) 75 mg PEG 0800 [facility] Last Admin: 09/04/17 07:52 Dose: 75 mg Al Hydrox/Mg Hydrox/Simethicone 30 ml/Diphenhydramine HCl 75 mg/Lidocaine 30 ml 0 ml PO Q2H PRN PRN Reason: Mouth/Throat Pain Home Med (Home Med) 1 unit PO BID [facility] Last Admin: 09/04/17 09:59 Dose: Not Given Pantoprazole Sodium (Protonix 40mg Ivpb) 40 mg in 100 mls @ 200 mls/hr IVPB 0600 [facility] Last Admin: 09/04/17 05:50 Dose: 200 mls/hr Sodium Chloride (Sodium Chloride 0.45%) 1,000 mls @ 40 mls/hr IV .Q24H [facility] Last Admin: 09/03/17 14:38 Dose: 40 mls/hr Metoprolol Tartrate (Lopressor) 50 mg PEG 0800 [facility] Last Admin: 09/04/17 07:52 Dose: 50 mg Mupirocin (Bactroban Ointment) 1 gm TOP BID [facility] Last Admin: 09/04/17 09:59 Dose: 1 applic Silver Sulfadiazine (Silvadene 1% 25 Gm) 1 gm TP Q8 [facility] Last Admin: 09/04/17 05:51 Dose: 1 gm - Labs Labs: 09/04/17 07:00 09/04/17 07:15 - Constitutional Appears: Non-toxic, No Acute Distress - Head Exam Head Exam: ATRAUMATIC, NORMAL INSPECTION, NORMOCEPHALIC - ENT Exam ENT Exam: Mucous Membranes Moist Additional comments: Erythema and scabbing noted on left lateral aspect of neck - Respiratory Exam Respiratory Exam: Clear to Ausculation Bilateral, NORMAL BREATHING PATTERN - Cardiovascular Exam Cardiovascular Exam: RRR, +S1, +S2 - GI/Abdominal Exam GI & Abdominal Exam: Soft, Normal Bowel Sounds. absent: Tenderness - Extremities Exam Extremities Exam: Normal Inspection. 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 Patient with EUGENIA likely secondary to Vancomycin use, creatinine mildly increased from previous day. Vancomycin held at this time. Patient also evaluated by Nephrology who state patient may have experienced ATN vs AIN secondary to Vancomycin use. Nephrology has ordered urine eosinophils in addition to urine sodium and creatinine. Gentle hydration also started. Renal ultrasound demonstrates no abnormalities. Speech and swallow recommends modified barium swallow after completion of chemotherapy. Will continue with continuous PEG feeds. Plan discussed with Dr. Iyengar. Simpson, PGY-2
[2017-09-04] MEDS: Sodium Chloride 0.45% 1,000 ML IV SCH ×2 (14:26→17:31)
--- NOTE | 2017-09-04 20:17 | PN ---
DATE: 09/04/2017 SUBJECTIVE: The patient is in bed, in no acute distress, nontoxic. PHYSICAL EXAMINATION: VITAL SIGNS: Temperature is 98, blood pressure is 170/70, respiratory rate of 18. HEENT: Unremarkable. NECK: Supple. LUNGS: Have decreased breath sounds. HEART: Normal S1, S2. ABDOMEN: Soft. LABORATORY DATA: Reveals a white count of 9, hemoglobin of 10, platelets of 308, BUN of 42, creatinine of 3.7. Urinalysis is noted. The patient's vancomycin level today is 33.9 and currently the patient is off of antibiotics. ASSESSMENT AND PLAN: This is an 86-year-old male seen earlier today in the Transitional Care, status post throat cancer, status post Port-A-Cath and percutaneous endoscopic gastrostomy tube placement, admitted with neck pain, found to have a left neck radiation dermatitis superimposed with methicillin-resistant Staphylococcus aureus cellulitis, on vancomycin, and developed supratherapeutic vancomycin levels. Urinalysis is completely normal, probably not secondary to vancomycin. The patient does have . We will follow closely with you. The patient has been off vancomycin for several days. Cuauhtemoc Olivera MD
--- NOTE | 2017-09-04 21:54 | PN ---
DATE: SUBJECTIVE: The patient is currently seen lying comfortable supine in the TCU. Creatinine today remains elevated, it is 3.7. Of note, his vancomycin random levels are also elevated. MEDICATIONS: Medication list reviewed. The patient is currently on aspirin, mupirocin, Amitiza, metoprolol, Plavix, Protonix, Silvadene, and half normal saline at 45 mL an hour. Also, he is on magnesium hydroxide/simethicone/lidocaine/diphenhydramine. OBJECTIVE: VITAL SIGNS: Blood pressure ranging from 146 to 172 systolic, diastolics ranging from 71 to 83. Pulse is 81. Temperature 98.1 and respiratory rate is 20. Oxygen saturation 96%. HEENT: Showed to be normocephalic and atraumatic. Conjunctivae are pale. Sclerae are nonicteric. NECK: Supple. He has excoriations on the left side of his neck. He has Silvadene ointment applied. There are no draining ulcers or open ulcers at this time. CHEST: Clear to auscultation and percussion. No rales or rhonchi or wheezing. CARDIOVASCULAR: Shows a regular rate and rhythm without murmurs, rubs, or gallops. ABDOMEN: Soft. Bowel sounds normal. Nondistended and nontender. PEG tube in place. EXTREMITIES: No lower extremity cyanosis, clubbing, or edema. LABORATORY DATA AND IMAGING: CBC; white blood cell count today 9.0, hemoglobin slightly low at 10.2 with a platelet count of 308,000. Chemistries show a continued rise in his BUN and creatinine, BUN 42 with a creatinine of 3.7. His baseline BUN is 11 with a baseline creatinine of 0.6. Electrolytes are normal. Calcium is 8.3. Liver enzymes are normal. Albumin is low at 2.4. Urine show no eosinophils. Urine sodium is elevated. Urine creatinine is low. Fractional excretion of sodium is greater than 1%. Urine protein blood cells are negative. Last vancomycin level random was 33.9 from today. His highest vancomycin level today was 42.5. Renal ultrasound done on 09/02/2017 showed normal kidneys. No obstructive uropathy. ASSESSMENT: 1. Acute renal failure superimposed on a patient with no past history of chronic kidney disease. This is in the setting of likely acute tubular necrosis in the setting of likely vancomycin nephrotoxicity. Fractional secretion of sodium is less than 1%, no evidence for acute interstitial nephritis. Agree with decision to stop antibiotic therapy as the patient has enough vancomycin on board for least several more days. I do not expect any significant improvement in his creatinine until his vancomycin trough level falls below 15. 2. Stage IV laryngeal cancer, status post radiation burn with an oozing lesion in the posterior neck area, positive for methicillin-sensitive Staphylococcus aureus. 3. History of atherosclerotic heart disease, currently stable. He is status post coronary artery bypass graft. 4. Elevated blood pressure readings. The patient apparently has no history of hypertension. In all likelihood elevated systolic blood pressure readings are secondary to acute renal failure. I will start the patient on low-dose calcium-channel lloyd therapy and he may use clonidine on a p.r.n. basis for blood pressure spikes. PLAN: 1. Continue IV fluid hydration. 2. Continue PEG tube feedings with extra water administration. 3. Daily random vancomycin level along with daily chemistry levels. 4. Avoid all nephrotoxic agents. I expect him to have a full recovery of his renal parameters once his vancomycin levels fall. Camilo Trammell MD
[2017-09-05] MEDS: Pantoprazole 40mg/100ml IVPB 40 MG/100 ML BAG IVPB SCH (05:50)
[2017-09-05] MEDS: Silver Sulfadiazine 1% Cream (25 gm) TP SCH ×3 (05:50→21:34)
[2017-09-05 07:13] LABS: HEMOGLOBIN 10.2 g/dL (14.0-18.0); MEAN CELL VOLUME 88.1 fl (80.0-105.0); MEAN CORPUSCULAR HEMOGLOBIN 28.9 pg (25.0-35.0); MEAN CORPUSCULAR HGB CONC 32.8 g/dl (31.0-37.0); MEAN PLATELET VOLUME 9.5 fl (7.0-11.0); RBC 3.53 10^6/uL (3.5-6.1); RED CELL DISTRIBUTION WIDTH 14.4 % (11.5-14.5); WHITE BLOOD COUNT 8.6 10^3/ul (4.5-11.0)
[2017-09-05 07:28] LABS: ALBUMIN 2.8 g/dL (3.0-4.8); CALCIUM 8.3 mg/dL (8.4-10.5)
[2017-09-05] MEDS: LUBIPROSTONE PO SCH ×3 (09:51→17:47)
[2017-09-05] MEDS: Sodium Chloride 0.45% 1,000 ML IV SCH (11:00)
--- NOTE | 2017-09-05 11:29 | CP.PCM.PN ---
Subjective - Date & Time of Evaluation Date of Evaluation: 09/05/17 Time of Evaluation: 10:40 - Subjective Subjective: S&E at bedside and chart reviewed. No acute overnight events, tolerate prn sips of water, aware to sit at least greater that 70 degrees. Having regular BM, no diarrhea or blood. Had radiation this am. No new complaints. Objective - Vital Signs/Intake and Output Vital Signs (last 24 hours): Temp Pulse Resp BP Pulse Ox 98.1 F 86 20 159/78 H 96 09/04/17 16:00 09/05/17 09:51 09/04/17 16:00 09/05/17 09:51 09/04/17 16:00 - Medications Medications: Current Medications Amlodipine Besylate (Norvasc) 5 mg PO DAILY [facility] Last Admin: 09/04/17 17:44 Dose: 5 mg Aspirin (Aspirin Chewable) 81 mg PEG 0800 [facility] Last Admin: 09/05/17 09:50 Dose: 81 mg Clopidogrel Bisulfate (Plavix) 75 mg PEG 0800 [facility] Last Admin: 09/05/17 09:52 Dose: 75 mg Al Hydrox/Mg Hydrox/Simethicone 30 ml/Diphenhydramine HCl 75 mg/Lidocaine 30 ml 0 ml PO Q2H PRN PRN Reason: Mouth/Throat Pain Home Med (Home Med) 1 unit PO BID [facility] Last Admin: 09/05/17 09:51 Dose: Not Given Pantoprazole Sodium (Protonix 40mg Ivpb) 40 mg in 100 mls @ 200 mls/hr IVPB 0600 [facility] Last Admin: 09/05/17 05:50 Dose: 200 mls/hr Sodium Chloride (Sodium Chloride 0.45%) 1,000 mls @ 60 mls/hr IV .[id number] [facility] Last Admin: 09/04/17 17:31 Dose: 60 mls/hr Metoprolol Tartrate (Lopressor) 50 mg PEG 0800 [facility] Last Admin: 09/05/17 09:51 Dose: 50 mg Mupirocin (Bactroban Ointment) 1 gm TOP BID [facility] Last Admin: 09/05/17 09:53 Dose: 1 applic Silver Sulfadiazine (Silvadene 1% 25 Gm) 1 gm TP Q8 [facility] Last Admin: 09/05/17 05:50 Dose: 1 gm - Labs Labs: 09/05/17 06:30 01/17/18 06:30 - Constitutional Appears: No Acute Distress - Eye Exam Eye Exam: Normal appearance. absent: Scleral icterus - ENT Exam ENT Exam: Mucous Membranes Moist - Neck Exam Additional comments: left side neck erythema but skin intact, cellutitis improving. - Respiratory Exam Respiratory Exam: NORMAL BREATHING PATTERN. absent: Respiratory Distress - Cardiovascular Exam Cardiovascular Exam: +S1, +S2 - GI/Abdominal Exam GI & Abdominal Exam: Soft, Normal Bowel Sounds. absent: Guarding, Tenderness, Organomegaly, Rebound - Extremities Exam Extremities Exam: absent: Calf Tenderness, Pedal Edema - Neurological Exam Neurological Exam: Alert, Awake, Oriented x3 - Skin Skin Exam: Dry, Warm Assessment and Plan - Assessment and Plan (Free Text) Assessment: Assessment: Throat cancer, on radiation and chemotherapy Left side neck cellulitis Constipation Plan: Continue Jevity@ 40 cc/hr feedings and check residuals,patient wants to stay on continuous feedings. On aspirin and Plavix Continue GI prophylaxis on home med, AMitiza 25 mcg BID recommend MBS prior to advancing diet restarted radiation treatments as per oncology Case discussed with Dr. Jernigan who is covering Dr. Foreman.
--- NOTE | 2017-09-05 13:38 | CP.PCM.PN ---
Subjective - Date & Time of Evaluation Date of Evaluation: 09/05/17 Time of Evaluation: 13:36 - Subjective Subjective: Patient seen and examined at bedside. Patient doing well overnight with no acute events. Patient with no complaints this morning. He feels like his neck is getting better. Denies chest pain, shortness of breath, nausea, vomiting, diarrhea, fever, chills. Objective - Vital Signs/Intake and Output Vital Signs (last 24 hours): Temp Pulse Resp BP Pulse Ox 98.1 F 63 20 159/53 H 96 09/04/17 16:00 09/05/17 11:00 09/04/17 16:00 09/05/17 11:00 09/04/17 16:00 - Medications Medications: Current Medications Amlodipine Besylate (Norvasc) 5 mg PO DAILY [facility] Last Admin: 09/05/17 11:00 Dose: 5 mg Aspirin (Aspirin Chewable) 81 mg PEG 0800 [facility] [place] Last Admin: 09/05/17 09:50 Dose: 81 mg Clopidogrel Bisulfate (Plavix) 75 mg PEG 0800 [facility] [place] Last Admin: 09/05/17 09:52 Dose: 75 mg Al Hydrox/Mg Hydrox/Simethicone 30 ml/Diphenhydramine HCl 75 mg/Lidocaine 30 ml 0 ml PO Q2H PRN PRN Reason: Mouth/Throat Pain Home Med (Home Med) 1 unit PO BID [facility] [place] Last Admin: 09/05/17 12:47 Dose: 1 unit Pantoprazole Sodium (Protonix 40mg Ivpb) 40 mg in 100 mls @ 200 mls/hr IVPB 0600 [facility] [place] Last Admin: 09/05/17 05:50 Dose: 200 mls/hr Sodium Chloride (Sodium Chloride 0.45%) 1,000 mls @ 60 mls/hr IV .[id number] [facility] [place] Last Admin: 09/05/17 11:00 Dose: Not Given Metoprolol Tartrate (Lopressor) 50 mg PEG 0800 [facility] [place] Last Admin: 09/05/17 09:51 Dose: 50 mg Mupirocin (Bactroban Ointment) 1 gm TOP BID [facility] [place] Last Admin: 09/05/17 09:53 Dose: 1 applic Silver Sulfadiazine (Silvadene 1% 25 Gm) 1 gm TP Q8 [facility] [place] Last Admin: 09/05/17 13:22 Dose: 1 gm - Labs Labs: 09/05/17 06:30 09/05/17 06:30 - Constitutional Appears: Non-toxic, No Acute Distress - Head Exam Head Exam: ATRAUMATIC, NORMAL INSPECTION, NORMOCEPHALIC - ENT Exam ENT Exam: Mucous Membranes Moist - Neck Exam Additional comments: Left lateral neck with improving erythema and scabbing. No open lesions. - Respiratory Exam Respiratory Exam: Clear to Ausculation Bilateral, NORMAL BREATHING PATTERN - Cardiovascular Exam Cardiovascular Exam: RRR, +S1, +S2 - GI/Abdominal Exam GI & Abdominal Exam: Soft, Normal Bowel Sounds. 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 Patient with ATN secondary to Vancomycin use. Patient with improving creatinine today, continue gentle hydration. Amlodipine added by nephrology for HTN at this time. Renal ultrasound previously showed no abnormalities. Patient resumed Radiation today and will need 6 more sessions. Patient will also likely need home health aid as he lives by himself. Patient is unable to have diet advanced will have to continue tube feedings at home. Plan discussed with Dr. Smith. Tatiana, PGY-2
--- NOTE | 2017-09-05 20:37 | PN ---
DATE: 09/05/2017 SUBJECTIVE: Patient is seen lying in bed. He is awake. He is alert. He is comfortable. He complains of mild shortness of breath earlier in the day. He complains of chronic cough. He also reports constipation. He received a laxative any he finally moved his bowels. PHYSICAL EXAMINATION GENERAL: Elderly male lying in bed. VITAL SIGNS: Blood pressure 159/53, heart rate 63, respiratory rate 20, temperature 98.1. HEENT: Normocephalic, atraumatic, positive pallor. NECK: Supple, no JVD, positive excoriation and a healed ulceration on the left side of the neck. LUNGS: Bilateral equal air entry, bilateral rhonchi, expiratory wheeze. CARDIAC: S1, S2. Regular rate and rhythm, no murmur, no rub. ABDOMEN: Soft, nondistended, nontender, bowel sounds present, positive PEG. EXTREMITIES: No lower extremity edema. Intake and output not charted. LABORATORY DATA: WBC 8.6, hemoglobin 10, hematocrit 31, platelets 306. Sodium 141, potassium 4.3, chloride 109, CO2 of 25, BUN 43, creatinine 3.5, glucose 111, calcium 8.3, AST 31, ALT 27, albumin 2.8. Vancomycin level is 29.5. CURRENT MEDICATIONS: Aspirin, Bactroban, Lopressor tartrate 50 daily, amlodipine 5 daily, Plavix 75, Protonix, Silvadene, half-normal saline at 60, discontinued this morning. ASSESSMENT 1. Acute kidney injury, suspect acute tubular necrosis secondary to vancomycin toxicity. 2. Stage IV laryngeal cancer, status post radiation therapy. 3. 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 4. Cachexia/malnutrition. 5. History of hypertension. 6. History of coronary artery disease. PLAN 1. Continue IV fluids. 2. Continue PEG fluids. 3. Monitor urine output if possible. 4. Monitor daily labs. 5. Expect renal recovery in 4-7 days Marissa Cohen MD
[2017-09-06] MEDS: Sodium Chloride 0.45% 1,000 ML IV SCH (00:24)
[2017-09-06] MEDS: Pantoprazole 40mg/100ml IVPB 40 MG/100 ML BAG IVPB SCH (05:39)
[2017-09-06] MEDS: Silver Sulfadiazine 1% Cream (25 gm) TP SCH ×3 (06:06→21:43)
[2017-09-06 06:19] LABS: HEMOGLOBIN 10.1 g/dL (14.0-18.0); MEAN CELL VOLUME 88.2 fl (80.0-105.0); MEAN CORPUSCULAR HEMOGLOBIN 29.1 pg (25.0-35.0); MEAN PLATELET VOLUME 9.9 fl (7.0-11.0); RBC 3.47 10^6/uL (3.5-6.1); RED CELL DISTRIBUTION WIDTH 14.4 % (11.5-14.5); WHITE BLOOD COUNT 8.8 10^3/ul (4.5-11.0)
[2017-09-06 07:46] LABS: ALBUMIN 2.8 g/dL (3.0-4.8); CALCIUM 8.3 mg/dL (8.4-10.5)
--- NOTE | 2017-09-06 08:35 | PN ---
DATE: 09/05/2017 ADDENDUM This is an addendum to a progress note performed by FAN Banks. I personally examined this patient. There are no new laboratory data to review. The patient is comfortable. He is tolerating PEG feedings. His long-term prognosis is poor. Continue supportive care. I agreed with Cristela Liu' assessment and recommendation. Atul Jernigan MD
--- NOTE | 2017-09-06 08:45 | PN ---
DATE: 09/05/2017 SUBJECTIVE: The patient is in no acute distress, nontoxic. PHYSICAL EXAMINATION: GENERAL: Text. VITAL SIGNS: Temperature is 98, blood pressure 170/70, respiratory rate 20, heart rate of 81. HEENT: Unremarkable. NECK: Supple. LUNGS: Decreased breath sounds. HEART: Normal S1 and S2. ABDOMEN: Soft, nontender. LABORATORY DATA: Reveals a white count of 8.6, hemoglobin of 10, platelets of 306. BUN of 43, creatinine of 3.5. Today, his vancomycin random level is 29. Creatinine is in a downward trend from 3.7 to 3.5. ASSESSMENT AND PLAN: An 86-year-old elderly male who is here today in the Transitional Care with throat cancer, Port-A-Cath, and a percutaneous endoscopic gastrostomy tube placement, admitted with neck pain, found to have a left neck radiation dermatitis superimposed with methicillin-resistant Staphylococcus aureus cellulitis, on vancomycin, developed supratherapeutic vancomycin levels, although the urinalysis is completely normal, probably not secondary to vancomycin, and the renal function is improving. Cuauhtemoc Olivera MD
[2017-09-06] MEDS: LUBIPROSTONE PO SCH ×2 (10:37→17:36)
[2017-09-06 17:47] VITALS: O2SAT 96
--- NOTE | 2017-09-06 19:49 | PN ---
DATE: 09/06/2017 SUBJECTIVE: The patient is seen lying in bed. He is awake, he is alert, he is comfortable. He denies any pain. He denies any shortness of breath. PHYSICAL EXAMINATION GENERAL: Cachectic elderly male, lying in bed. VITAL SIGNS: Blood pressure 170/85, heart rate 87, respiratory rate 20, and temperature 97.6. HEENT: Normocephalic, atraumatic, positive pallor. NECK: Supple, no JVD. LUNGS: Bilateral equal air entry, bilateral equal expansion, right-sided port. CARDIAC: S1 and S2, regular rate and rhythm, no murmur, no rub. ABDOMEN: Soft, nondistended, nontender, positive PEG, bowel sounds present. EXTREMITIES: No lower extremity edema. INTAKE AND OUTPUT: Not charted. LABORATORY DATA: WBC 8.8, hemoglobin 10, hematocrit 30.6, platelets 340. Sodium 141, potassium 3.3, chloride 107, CO2 of 24, BUN of 42, creatinine 3.3, glucose 118, calcium 8.3, AST 41, ALT 33, albumin 2.8, corrected calcium is 9. Urine culture no growth. CURRENT MEDICATIONS: Aspirin, mupirocin, Lopressor 50 b.i.d., amlodipine 5, Plavix, Protonix. ASSESSMENT: 1. Acute kidney injury, acute tubular necrosis secondary to vancomycin toxicity. Renal function starting to improve. 2. Severe uncontrolled hypertension. 3. Hypokalemia. 4. Stage IV laryngeal cancer. 5. History of coronary artery disease. 6. Malnutrition. PLAN: 1. Increase amlodipine to 10 mg daily. 2. Add potassium to IV fluids. 3. Avoid nephrotoxins. 4. Expect full renal recovery. Marissa Cohen MD
--- NOTE | 2017-09-07 00:49 | PN ---
DATE: 09/06/2017 SUBJECTIVE: The patient is in bed, in no acute distress, and nontoxic. PHYSICAL EXAMINATION: VITAL SIGNS: Temperature is 98, blood pressure is 160/70, and respiratory rate is 20. HEENT: Unremarkable. NECK: Supple. LUNGS: Have decreased breath sounds. HEART: Normal S1 and S2. ABDOMEN: Soft. LABORATORY DATA: Reveals a white count of 8.8, hemoglobin of 10, and platelets of 340. Chemistries reveal a BUN of 42 and creatinine of 3.3. Urinalysis is noted. Vancomycin random level is 24 today and a renal function is improving at 3.3. Review of orders reveals the patient off of antibiotics and Dr. Cohen's note is reviewed. ASSESSMENT AND PLAN: This is an 86-year-old male who was seen earlier today in Transitional Care with history of throat cancer. Port-A-Cath and percutaneous endoscopic gastrostomy tube placement, admitted with neck pain, found to have a left neck radiation dermatitis superimposed with methicillin-resistant Staphylococcus aureus cellulitis, on vancomycin, did have supratherapeutic levels and acute kidney injury, although the urinalysis is not consistent with vancomycin-induced renal failure. The patient antibiotic therapy dermatitis at this point and renal function is improving and vancomycin level appears to be on the downward trend and we will follow with you. Cuauhtemoc Olivera MD
--- NOTE | 2017-09-07 02:29 | PN ---
DATE: 09/06/2017 This is [facility]'s [facility] visit on TCU. For Dr. Smith. SUBJECTIVE: The patient is an 86-year-old male, seen sitting up in bed, reporting that he has no pain despite having significant pain to left lateral neck for radiation dermatitis changes in the past. He suffers from stage IV A laryngeal carcinoma extending to and involving the thyroid and cricoid cartilages with PEG placement, treatment of Erbitux. He now reports that the radiation treatments have resumed having 2 so far this week with the patient continuing his IV antibiotics. His acute renal dysfunction is slowly correcting after treatment with Dr. Trammell and Dr. Cohen, renal consultants, possibly induced by antibiotics. With this, the patient is in otherwise no acute distress, participating with his TCU reconditioning protocols. OBJECTIVE/PHYSICAL EXAMINATION: VITAL SIGNS: Temperature 98.5, pulse 86, respirations 20, blood pressure 160/77, pulse ox 96%. HEENT: Unremarkable. Tongue is moist and midline. NECK: Supple with radiation dermatitis changes to the left lateral neck with erythema with patient denying any discomfort there at present. His mucositis has improved. HEART: Regular rate with a faint 1/6 systolic ejection murmur. LUNGS: Clear. ABDOMEN: Soft with PEG viable with feedings continuing. EXTREMITIES: No edema. SKIN: Warm and dry otherwise. NEUROLOGIC: Awake, alert and oriented. LABORATORY DATA: Patient's labs were done. White blood cell count of 8.8, hemoglobin 10.1, hematocrit 30.6 with a platelet count of 340,000. His chem metabolic panel shows a potassium of 3.3 with a BUN of 42, creatinine of 3.3 down from 3.5 yesterday, calcium was 8.3. Electrolytes are being monitored by the renal consultants. ASSESSMENT: For this patient is that of acute kidney injury with acute renal failure slowly improving, questionable tubular necrosis secondary to antibiotics, stage IV laryngeal cancer, radiation dermatitis with methicillin-resistant Staphylococcus aureus cellulitis, arteriosclerotic cardiovascular disease, nutritional compromise with percutaneous endoscopic gastrostomy feedings. PLAN: For this patient, after conversation with Dr. Smith, is to continue his present medical regimen as per window covering sales consultant's recommendations. We will monitor clinically and with labs. We will continue his radiation as per Dr. Kecia Tejada, Radiation Oncology, with prognosis for this patient guarded. Gray Zapata MD
[2017-09-07] MEDS: Pantoprazole 40mg/100ml IVPB 40 MG/100 ML BAG IVPB SCH (05:24)
[2017-09-07] MEDS: Silver Sulfadiazine 1% Cream (25 gm) TP SCH ×3 (05:44→21:50)
[2017-09-07 07:14] LABS: HEMOGLOBIN 9.7 g/dL (14.0-18.0); MEAN CELL VOLUME 88.3 fl (80.0-105.0); MEAN CORPUSCULAR HGB CONC 32.9 g/dl (31.0-37.0); MEAN PLATELET VOLUME 9.7 fl (7.0-11.0); RBC 3.34 10^6/uL (3.5-6.1); RED CELL DISTRIBUTION WIDTH 14.4 % (11.5-14.5); WHITE BLOOD COUNT 7.8 10^3/ul (4.5-11.0)
[2017-09-07 07:40] LABS: ALBUMIN 2.7 g/dL (3.0-4.8); CALCIUM 8.2 mg/dL (8.4-10.5)
--- NOTE | 2017-09-07 09:44 | CP.PCM.PN ---
Subjective - Date & Time of Evaluation Date of Evaluation: 09/07/17 Time of Evaluation: 08:45 - Subjective Subjective: S&E at bedside, chart reviewed, no acute overnight events reported. Continue to tolerate PEG feeds, No N/V or abdominal pain. Report formed soft stool, no melena or BRBPR. No new complaints. Takes clear liquids prn and tolerating per pt. Objective - Vital Signs/Intake and Output Vital Signs (last 24 hours): Temp Pulse Resp BP Pulse Ox 98.5 F 88 20 155/75 H 96 09/06/17 17:47 09/07/17 09:00 09/06/17 17:47 09/07/17 09:00 09/06/17 17:47 - Medications Medications: Current Medications Amlodipine Besylate (Norvasc) 10 mg PEG DAILY [facility] Aspirin (Aspirin Chewable) 81 mg PEG 0800 [facility] Last Admin: 09/06/17 10:37 Dose: 81 mg Clopidogrel Bisulfate (Plavix) 75 mg PEG 0800 [facility] Last Admin: 09/07/17 09:00 Dose: 75 mg Al Hydrox/Mg Hydrox/Simethicone 30 ml/Diphenhydramine HCl 75 mg/Lidocaine 30 ml 0 ml PO Q2H PRN PRN Reason: Mouth/Throat Pain Home Med (Home Med) 1 unit PO BID [facility] Last Admin: 09/06/17 17:36 Dose: Not Given Pantoprazole Sodium (Protonix 40mg Ivpb) 40 mg in 100 mls @ 200 mls/hr IVPB 0600 [facility] [place] Last Admin: 09/07/17 05:24 Dose: 200 mls/hr Potassium Chloride 10 meq/ (Sodium Chloride) 1,005 mls @ 60 mls/hr IV .[id number] [facility] Last Admin: 09/07/17 06:39 Dose: 60 mls/hr Metoprolol Tartrate (Lopressor) 50 mg PEG 0800 [facility] Last Admin: 09/07/17 09:00 Dose: 50 mg Mupirocin (Bactroban Ointment) 1 gm TOP BID [facility] Last Admin: 09/06/17 17:36 Dose: 1 applic Silver Sulfadiazine (Silvadene 1% 25 Gm) 1 gm TP Q8 [facility] Last Admin: 09/07/17 05:44 Dose: 1 gm - Labs Labs: 09/07/17 06:45 09/07/17 06:45 - Constitutional Appears: No Acute Distress - Eye Exam Eye Exam: Normal appearance. absent: Scleral icterus - ENT Exam ENT Exam: Mucous Membranes Moist - Neck Exam Additional comments: neck appears skin continue to heal - Respiratory Exam Respiratory Exam: NORMAL BREATHING PATTERN. absent: Respiratory Distress - Cardiovascular Exam Cardiovascular Exam: +S1, +S2 - GI/Abdominal Exam GI & Abdominal Exam: Soft, Normal Bowel Sounds. absent: Guarding, Tenderness, Organomegaly, Rebound Additional comments: (+) PEG, dry and intact no erythema or discharge - Extremities Exam Extremities Exam: absent: Calf Tenderness, Pedal Edema - Neurological Exam Neurological Exam: Alert, Awake, Oriented x3 - Skin Skin Exam: Dry, Warm Assessment and Plan - Assessment and Plan (Free Text) Assessment: Assessment: Throat cancer, on radiation and chemotherapy Left side neck cellulitis, continue to improve Constipation Plan: Continue Jevity@ 40 cc/hr feedings and check residuals On aspirin and Plavix Continue GI prophylaxis on home med, AMitiza 25 mcg BID recommend MBS prior to advancing diet, discuss with patient on radiation treatments as per oncology discuss with patient that on discharge home he will continue his bolus feedings and discuss ONLY ice chips, patient told to avoid full liquids/food, must have MBS post treatment reassess swallowing function Case discuss with resident. Case discussed with Dr. Jernigan who is covering Dr. Foreman.
--- NOTE | 2017-09-07 10:00 | CP.PCM.PN ---
Subjective - Date & Time of Evaluation Date of Evaluation: 09/07/17 Time of Evaluation: 10:00 - Subjective Subjective: Mr Vila is known to our department. 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 He resumed radiation therapy on Sunday. He is doing well so far. We will be closely monitoring him while he remains in TR and gets his radiation Objective - Vital Signs/Intake and Output Vital Signs (last 24 hours): Temp Pulse Resp BP Pulse Ox 98.5 F 88 20 155/75 H 96 09/06/17 17:47 09/07/17 09:00 09/06/17 17:47 09/07/17 09:00 09/06/17 17:47 - Medications Medications: Current Medications Amlodipine Besylate (Norvasc) 10 mg PEG DAILY [facility] Aspirin (Aspirin Chewable) 81 mg PEG 0800 [facility] Last Admin: 09/06/17 10:37 Dose: 81 mg Clopidogrel Bisulfate (Plavix) 75 mg PEG 0800 [facility] Last Admin: 09/07/17 09:00 Dose: 75 mg Al Hydrox/Mg Hydrox/Simethicone 30 ml/Diphenhydramine HCl 75 mg/Lidocaine 30 ml 0 ml PO Q2H PRN PRN Reason: Mouth/Throat Pain Home Med (Home Med) 1 unit PO BID [facility] Last Admin: 09/06/17 17:36 Dose: Not Given Pantoprazole Sodium (Protonix 40mg Ivpb) 40 mg in 100 mls @ 200 mls/hr IVPB 0600 [facility] Last Admin: 09/07/17 05:24 Dose: 200 mls/hr Potassium Chloride 10 meq/ (Sodium Chloride) 1,005 mls @ 60 mls/hr IV .[id number] [facility] Last Admin: 09/07/17 06:39 Dose: 60 mls/hr Metoprolol Tartrate (Lopressor) 50 mg PEG 0800 [facility] Last Admin: 09/07/17 09:00 Dose: 50 mg Mupirocin (Bactroban Ointment) 1 gm TOP BID [facility] Last Admin: 09/06/17 17:36 Dose: 1 applic Silver Sulfadiazine (Silvadene 1% 25 Gm) 1 gm TP Q8 [facility] Last Admin: 09/07/17 05:44 Dose: 1 gm - Labs Labs: 09/07/17 06:45 09/07/17 06:45
--- NOTE | 2017-09-07 10:57 | CP.PCM.PN ---
Subjective - Date & Time of Evaluation Date of Evaluation: 09/07/17 Time of Evaluation: 10:51 - Subjective Subjective: Patient seen and examined at bedside. Patient doing well overnight with no acute events. No complaints this morning. Denies Chest pain, shortness of breath , nausea, vomiting, diarrhea, fever, chills. Objective - Vital Signs/Intake and Output Vital Signs (last 24 hours): Temp Pulse Resp BP Pulse Ox 98.5 F 88 20 155/75 H 96 09/06/17 17:47 09/07/17 09:00 09/06/17 17:47 09/07/17 09:00 09/06/17 17:47 - Medications Medications: Current Medications Amlodipine Besylate (Norvasc) 10 mg PEG DAILY [facility] Aspirin (Aspirin Chewable) 81 mg PEG 0800 [facility] Last Admin: 09/07/17 09:00 Dose: 81 mg Clopidogrel Bisulfate (Plavix) 75 mg PEG 0800 [facility] Last Admin: 09/07/17 09:00 Dose: 75 mg Al Hydrox/Mg Hydrox/Simethicone 30 ml/Diphenhydramine HCl 75 mg/Lidocaine 30 ml 0 ml PO Q2H PRN PRN Reason: Mouth/Throat Pain Home Med (Home Med) 1 unit PO BID [facility] Last Admin: 09/06/17 17:36 Dose: Not Given Pantoprazole Sodium (Protonix 40mg Ivpb) 40 mg in 100 mls @ 200 mls/hr IVPB 0600 [facility] Last Admin: 09/07/17 05:24 Dose: 200 mls/hr Potassium Chloride 10 meq/ (Sodium Chloride) 1,005 mls @ 60 mls/hr IV .[id number] [facility] Last Admin: 09/07/17 06:39 Dose: 60 mls/hr Metoprolol Tartrate (Lopressor) 50 mg PEG 0800 [facility] Last Admin: 09/07/17 09:00 Dose: 50 mg Mupirocin (Bactroban Ointment) 1 gm TOP BID [facility] Last Admin: 09/07/17 10:19 Dose: 1 applic Silver Sulfadiazine (Silvadene 1% 25 Gm) 1 gm TP Q8 [facility] Last Admin: 09/07/17 05:44 Dose: 1 gm - Labs Labs: 09/07/17 06:45 09/07/17 06:45 - Constitutional Appears: Non-toxic, No Acute Distress - Head Exam Head Exam: ATRAUMATIC, NORMAL INSPECTION, NORMOCEPHALIC - ENT Exam ENT Exam: Mucous Membranes Moist - Neck Exam Additional comments: Improving erythema of left lateral neck. No scabbing present. - Respiratory Exam Respiratory Exam: Clear to Ausculation Bilateral, NORMAL BREATHING PATTERN - Cardiovascular Exam Cardiovascular Exam: RRR, +S1, +S2 - GI/Abdominal Exam GI & Abdominal Exam: Soft, Normal Bowel Sounds. absent: Tenderness - Extremities Exam Extremities Exam: Normal Inspection. 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 EUGENIA secondary to ATN is stable at this time. Patient will need free water flushes of 200 ml q6h at home to help with EUGENIA as per discussion with Dr. Cohen, Nephrology. Patient will need follow up with Nephrology to assess renal function. Amlodipine increased by nephrology for hypertension. After speaking with the Range Technician, patient will require 6 cans total of bolus feeding at home. He will take 2 in the morning, 2 in the afternoon, and 2 at night, with a 4 hour gap between each feedings. Patient will also receive 5 more radiation sessions from 09/10-09/14 next week, transportation has been arranged. Patient will also receive home health care starting the day after he is discharged. Plan for discharge tomorrow. Plan discussed with nursing scheduler. Plan discussed with Dr. Smith. Tatiana, PGY-2
[2017-09-07] MEDS: LUBIPROSTONE PO SCH ×2 (12:54→18:32)
[2017-09-07] MEDS ORDERED: Pantoprazole 40 mg Susp UD PO SCH (13:45)
[2017-09-07 16:18] VITALS: PULSE 80; RESP 18; TEMP 97.6
--- NOTE | 2017-09-07 16:35 | PN ---
ADDENDUM: ADDENDUM ON PROGRESS NOTE PERFORMED BY FAN CLAROS I personally examined this patient and reviewed his laboratory data. I agreed with Cristela Liu' impression and recommendations. The patient is comfortable, tolerating just water, and his tube feeding was temporally clogged, but now, it is functioning normally. The patient is stable from a GI standpoint. Atul Jernigan MD
--- NOTE | 2017-09-07 17:29 | CP.PCM.PN ---
Subjective - Date & Time of Evaluation Date of Evaluation: 09/07/17 Time of Evaluation: 11:55 - Subjective Subjective: Comfortable in bed, has good urine output, no fevers overnight, not in distress , no nausea, no hematuria. Objective - Vital Signs/Intake and Output Vital Signs (last 24 hours): Temp Pulse Resp BP Pulse Ox 98.5 F 88 20 155/75 H 96 09/06/17 17:47 09/07/17 09:00 09/06/17 17:47 09/07/17 09:00 09/06/17 17:47 - Medications Medications: Current Medications Amlodipine Besylate (Norvasc) 10 mg PEG DAILY [facility] Aspirin (Aspirin Chewable) 81 mg PEG 0800 [facility] Last Admin: 09/06/17 10:37 Dose: 81 mg Clopidogrel Bisulfate (Plavix) 75 mg PEG 0800 [facility] Last Admin: 09/07/17 09:00 Dose: 75 mg Al Hydrox/Mg Hydrox/Simethicone 30 ml/Diphenhydramine HCl 75 mg/Lidocaine 30 ml 0 ml PO Q2H PRN PRN Reason: Mouth/Throat Pain Home Med (Home Med) 1 unit PO BID [facility] Last Admin: 09/06/17 17:36 Dose: Not Given Pantoprazole Sodium (Protonix 40mg Ivpb) 40 mg in 100 mls @ 200 mls/hr IVPB 0600 [facility] Last Admin: 09/07/17 05:24 Dose: 200 mls/hr Potassium Chloride 10 meq/ (Sodium Chloride) 1,005 mls @ 60 mls/hr IV .[id number] [facility] Last Admin: 09/07/17 06:39 Dose: 60 mls/hr Metoprolol Tartrate (Lopressor) 50 mg PEG 0800 [facility] Last Admin: 09/07/17 09:00 Dose: 50 mg Mupirocin (Bactroban Ointment) 1 gm TOP BID [facility] Last Admin: 09/06/17 17:36 Dose: 1 applic Silver Sulfadiazine (Silvadene 1% 25 Gm) 1 gm TP Q8 [facility] Last Admin: 09/07/17 05:44 Dose: 1 gm - Labs Labs: 09/07/17 06:45 09/07/17 06:45 - Constitutional Appears: Chronically Ill - Head Exam Head Exam: NORMAL INSPECTION - ENT Exam ENT Exam: Mucous Membranes Moist - Neck Exam Additional comments: left neck area with dermatitis - Respiratory Exam Respiratory Exam: Decreased Breath Sounds - Cardiovascular Exam Cardiovascular Exam: +S1, +S2 - GI/Abdominal Exam GI & Abdominal Exam: Soft. 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 Zapata will continue to monitor clinically overall prognosis is poor
--- NOTE | 2017-09-07 18:37 | PN ---
DATE: 09/07/2017 SUBJECTIVE: The patient is seen lying in bed. He is awake. He is alert. He is comfortable. Denies any pain. Denies any shortness of breath. Denies any chest tightness. PHYSICAL EXAMINATION: GENERAL: Elderly male lying in bed. VITAL SIGNS: Blood pressure 166/83, heart rate 88, respiratory rate 20, temperature 98.5. HEENT: Normocephalic, atraumatic. NECK: Supple, no JVD. LUNGS: Bilateral equal air entry, no rales, no rhonchi. CARDIAC: S1 and S2. Regular rate and rhythm, no murmur, no rub. ABDOMEN: Soft, nondistended, nontender, positive PEG, bowel sounds present. EXTREMITIES: No lower extremity edema. INTAKE AND OUTPUT: Not charted. LABORATORY DATA: WBC 7.8, hemoglobin 9.7, hematocrit 29.5, platelets 334. Sodium 143, potassium 3.6, chloride 110, CO2 25, BUN 40, creatinine 3.3, glucose 110, calcium 8.2, phosphorus not checked, albumin 2.7. Corrected calcium is 9.0. CURRENT MEDICATIONS: Aspirin, Bactroban, Lopressor 50 daily, amlodipine 10, Plavix, Protonix, and Silvadene. ASSESSMENT AND PLAN: 1. Acute kidney injury, acute tubular necrosis in the setting of vancomycin toxicity. 2. Hypertension. 3. History of coronary artery disease. 4. 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 5. Status post radiation burn/methicillin-resistant Staphylococcus aureus wound infection. PLAN: 1. Renal function plateaued, doing better. 2. No objection to discharge. 3. Monitor labs as outpatient. 4. Water via the PEG tube 200 mL q. 6 hours. 5. Discuss[address] with Dr. Keith. Marissa Cohen MD
[2017-09-08] MEDS: Silver Sulfadiazine 1% Cream (25 gm) TP SCH (06:59)
[2017-09-08] MEDS: LUBIPROSTONE PO SCH (10:57)
[2017-09-08 11:14] VITALS: BP 175/81
[2017-09-08] MEDS ORDERED: Pantoprazole 40 mg Susp UD PO SCH (13:45)
--- NOTE | 2017-09-09 10:17 | DS ---
For Dr. 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 Continuing with radiation dermatitis with MRSA cellulitis, complicating his stay now, recondition on TCU with PEG placement for his nutrition. Now for discharge home to be followed for acute kidney injury by Dr. Cohen after antibiotic-induced nephrologic complications. With this he is in good spirit, in no acute distress and anxious for discharge home today. After long discussion was held with multiple disciplines regarding his further care, discussed with his family members also in this complex patient with a comprehensive medically necessary, an appropriate exam carried out in anticipation of his discharge. Also social workers were involved regarding home visiting nurses and instructions were given on how to give his tube feeding as his continuous PEG feeding was changed to tube feeding in anticipation of discharge. Current conversation was held with talent program manager, Dr. Cohen Renal, Dr. Cali, Infectious Diseases and Dr. Smith, and family members along with the patient and nursing staff and along with Dr. Tejada, for follow up of his radiation as an outpatient. OBJECTIVE/PHYSICAL EXAMINATION: VITAL SIGNS: Temperature of 97.6, pulse of 80, respirations of 18, and blood pressure of 166/83 with a pulse oximetry of 96%. HEENT: Unremarkable. Tongue is moist and midline. NECK: Supple with radiation dermatitis changes to the left lateral neck extending across the midline with mucositis improved. HEART: Regular rate, 106, systolic ejection murmur. LUNGS: Clear. ABDOMEN: Soft with a viable PEG tube. EXTREMITIES: No edema. SKIN: Warm and dry. NEUROLOGIC: Awake, alert and oriented x3. LABORATORY DATA: The patient's labs not done as per patient's request. ASSESSMENT: For this patient is that of deconditioning, acute kidney injury slowly improving, stage IV laryngeal cancer, radiation dermatitis with methicillin-resistant Staphylococcus aureus cellulitis, atherosclerotic cardiovascular disease, nutritional compromise with percutaneous endoscopic gastrostomy tube feedings, and hypertension. DISCHARGE MEDICATIONS: The patient's discharge medications are to include; all via PEG tube, metoprolol 50 mg via PEG daily, this was called into his pharmacy as he was on Toprol-XL which would not crush well in his PEG tube. Also Protonix 40 mg once a day, Plavix 75 mg once a day and Norvasc 10 mg via PEG with Amitiza p.r.n. He also will be using Silvadene cream with Bactroban for his skin lesions on his neck as per Dr. Cali. 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 The patient is to follow up with Dr. Tejada for radiation in [address] Smith in the office, we will repeat his labs at that time, with the patient to take Jevity as his feeding with bolus feeds of 2 cans up to 4 times a day, but at least 3 times a day with recommendations from Dr. Cohen to have at least 75 mL an hour for a flush of free water after he takes his medications. There is also question whether the patient has Jevity 1.2 or Jevity 1.5 at home, he will bring this with him on Sunday in the interim to 1.5, we will continue should he have that at home. With this, the patient's follow up is in 2 days in the office with Dr. Smith or earlier. Pharmacy was called for his medications. This is a complex patient with a multiple comorbidities with more comprehensive necessary visit carried out with face-to- face time in excess of 60 minutes with the patient, at the time of discharge. Gary Zapata MD
--- NOTE | 2017-09-10 09:10 | PN ---
DATE: 09/08/2017 SUBJECTIVE: The patient is in bed, in no acute distress, and nontoxic. PHYSICAL EXAMINATION: VITAL SIGNS: Temperature is 97, blood pressure is 160/80, respiratory rate of 18, and heart rate of 18. HEENT: Unremarkable. NECK: Supple. LUNGS: Have decreased breath sounds. HEART: Normal S1 and S2. ABDOMEN: Soft and nontender. LABORATORY DATA: Reveals the patient's creatinine is 3.3 as of yesterday and vancomycin level is 20. ASSESSMENT AND PLAN: This is an 86-year-old male with radiation dermatitis, left-sided neck with a superimposed cellulitis with methicillin-resistant Staphylococcus aureus, vancomycin induced nephropathy, with normal urinalysis, with acute kidney injury, the patient with eosinophils, may have been a beta-lactam induced. Currently off of antibiotics and renal function is improving, Nephrology following and we will follow with you. Cuauhtemoc Olivera MD
== END 2017-09-08 13:16 | disposition home or self-care (01) | DRG 606 ==
LOC: TRCU 00:01
PROVIDERS: ADMIT Family Medicine; ATTEND Family Medicine
PROC: F07Z9ZZ Gait Training/Functional Ambulation Treatment (ICD-10-PCS; principal; 2017-08-31)
PROC: F07M6ZZ Therapeutic Exercise Treatment of Musculoskeletal System - Whole Body (ICD-10-PCS; 2017-08-31)
PROC: F08Z1ZZ Dressing Techniques Treatment (ICD-10-PCS; 2017-08-31)
PROC: F08Z2ZZ Grooming/Personal Hygiene Treatment (ICD-10-PCS; 2017-08-31)
PROC: F08Z0ZZ Bathing/Showering Techniques Treatment (ICD-10-PCS; 2017-08-31)
PROC: F08Z4ZZ Home Management Treatment (ICD-10-PCS; 2017-08-31)
DX: L59.8 Other specified disorders of the skin and subcutaneous tissue related to radiation (principal); N17.0 Acute kidney failure with tubular necrosis; R64 Cachexia; E46 Unspecified protein-calorie malnutrition; L03.221 Cellulitis of neck; B95.62 Methicillin resistant Staphylococcus aureus infection as the cause of diseases classified elsewhere; C14.0 Malignant neoplasm of pharynx, unspecified; C32.9 Malignant neoplasm of larynx, unspecified; J44.9 Chronic obstructive pulmonary disease, unspecified; L30.9 Dermatitis, unspecified; E78.00 Pure hypercholesterolemia, unspecified; E87.6 Hypokalemia; I10 Essential (primary) hypertension; I25.10 Atherosclerotic heart disease of native coronary artery without angina pectoris; K59.00 Constipation, unspecified; T36.8X5A Adverse effect of other systemic antibiotics, initial encounter; Z85.819 Personal history of malignant neoplasm of unspecified site of lip, oral cavity, and pharynx; Z87.891 Personal history of nicotine dependence; Z92.21 Personal history of antineoplastic chemotherapy; Z92.3 Personal history of irradiation; Z93.1 Gastrostomy status; Z95.1 Presence of aortocoronary bypass graft; Z96.619 Presence of unspecified artificial shoulder joint; Z96.659 Presence of unspecified artificial knee joint

== ENCOUNTER 2017-10-29 22:43 | Inpatient (IN) | payer MEDICARE ==
--- NOTE | 2017-10-29 23:44 | ED PDOC ---
Arrival/HPI - General Time Seen by Provider: 10/29/17 22:54 Historian: Patient - History of Present Illness Narrative History of Present Illness (Text): 10/29/17 23:01 87 year old male, whose past medical history includes laryngeal CA, CAD s/p Cornary artery bypass surgery, and skin tumors, presents complaining of exertional shortness of breath that began a few days ago. Patient states he only feels shortness of breath when he exerts himself. Patient is currently undergoing radiation therapy for his laryngeal CA. He describes chronic skin bee to the area that he receives radiation. Patient denies any swelling to throat, but states he also recently have been having some increase of difficulty of swallowing. Patient denies any fever, chills, chest pain, nausea, vomiting, diarrhea, urinary symptoms, back pain, neck pain, headache, dizziness , or any other complaints. PMD: Dr. Smith Time/Duration: Other (few days) Symptom Onset: Gradual Symptom Course: Unchanged Activities at Onset: Light Context: Home Past Medical History - Provider Review Nursing Documentation Reviewed: Yes - Cardiac Hx Cardiac Disorders: Yes Hx Hypertension: Yes - Pulmonary Hx Chronic Obstructive Pulmonary Disease (COPD): Yes - Neurological Hx Neurological Disorder: No - HEENT Hx HEENT Disorder: Yes Other/Comment: THROAT CA - Renal Hx Renal Disorder: No - Endocrine/Metabolic Hx Endocrine Disorders: No - Hematological/Oncological Hx Cancer: Yes (throat) - Integumentary Hx Dermatological Disorder: No - Musculoskeletal/Rheumatological Hx Falls: Yes - Gastrointestinal Other/Comment: peg tube placement - Genitourinary/Gynecological Hx Reproductive Disorders: No - Psychiatric Hx Psychophysiologic Disorder: No Hx Substance Use: No - Surgical History Other/Comment: G TUBE, PORT R UPPER CHEST. - Anesthesia Hx Anesthesia: Yes - Suicidal Assessment Feels Threatened In Home Enviroment: No Family/Social History - Physician Review Nursing Documentation Reviewed: Yes Family/Social History: No Known Family HX Smoking Status: Former Smoker Hx Alcohol Use: Yes Hx Substance Use: No Allergies/Home Meds Allergies/Adverse Reactions: Allergies No Known Allergies Allergy (Verified 10/30/17 02:46) Home Medications: Home Meds Medication Instructions Recorded Confirmed Lubiprostone [Amitiza] 1 cap PO BID 08/30/17 08/31/17 Review of Systems - Physician Review All systems were reviewed & negative as marked: Yes - Review of Systems Constitutional: absent: Fevers, Other (Chills) Cardiovascular: MONTENEGRO. absent: Chest Pain Gastrointestinal: absent: Diarrhea, Nausea, Vomiting Genitourinary Male: absent: Dysuria, Frequency, Hematuria Musculoskeletal: absent: Back Pain, Neck Pain Neurological: absent: Headache, Dizziness Physical Exam Vital Signs Reviewed: Yes Vital Signs Temp Pulse Resp BP Pulse Ox 10/30/17 02:22 98.1 F 87 20 115/40 L 99 10/30/17 01:52 98.1 F 89 20 106/60 99 10/30/17 00:52 98.1 F 89 18 107/40 L 100 10/29/17 23:52 98.1 F 95 H 18 138/54 L 100 10/29/17 22:44 98.1 F 100 H 19 131/65 100 Temperature: Afebrile Blood Pressure: Normal Pulse: Regular Respiratory Rate: Normal Appearance: Positive for: Well-Appearing, Non-Toxic, Comfortable Pain Distress: None Mental Status: Positive for: Alert and Oriented X 3 - Systems Exam Head: Present: Atraumatic, Normocephalic Pupils: Present: PERRL Extroacular Muscles: Present: EOMI Conjunctiva: Present: Normal Mouth: Present: Moist Mucous Membranes Pharnyx: No: Other (No swelling to the posterior pharnyx) Neck: Present: Normal Range of Motion Respiratory/Chest: Present: Decreased Breath Sounds (decreased breath sounds bilaterally ). No: Respiratory Distress, Accessory Muscle Use Cardiovascular: Present: Regular Rate and Rhythm, Normal S1, S2. No: Murmurs Abdomen: Present: Normal Bowel Sounds. No: Tenderness, Distention, Peritoneal Signs Back: Present: Normal Inspection Upper Extremity: Present: Normal Inspection. No: Cyanosis, Edema Lower Extremity: Present: Normal Inspection. No: Edema, Cyanosis Neurological: Present: GCS=15, CN II-XII Intact, Speech Normal Skin: Present: Warm, Dry, Other (Skin scab wounds to the neck, chest, and shoulder area with erythema secondary to radiation). No: Rashes Psychiatric: Present: Alert, Oriented x 3, Normal Insight, Normal Concentration Medical Decision Making ED Course and Treatment: 10/29/17 23:01 Impression: 87 year old male presents complaining dyspnea on exertion that began a few days ago. Patient's past medical history includes laryngeal CA and skin tumors. Plan: -- EKG -- Labs -- Chest X-ray -- Reassess and disposition Prior Visits: Notes and results from previous visits were reviewed. Patient was last seen in the emergency department on 08/27/17 presents complaining of neck pain that began yesterday. Patient was admitted. Progress Notes: 10/30/17 02:17 EKG shows NSR at 94 BPM with sinus arrhythmia. Normal EKG. Interpreted by me. CXR Impression: As read by me, no acute processes. 10/30/17 03:[address] Smith who is aware and agrees with the plan. Accepts patient into his service with Dr. Quintana under consult. - Lab Interpretations Lab Results: 10/30/17 00:30 10/30/17 00:21 Lab Results 10/30/17 00:30: WBC 7.6 D, RBC 3.53, Hgb 10.1 L, Hct 30.7 L, MCV 87.0 D, MCH 28.6, MCHC 32.9, RDW 14.8 H, Plt Count 282, MPV 9.9 10/30/17 00:30: PT 11.6, INR 1.02, APTT 29.4 10/30/17 00:21: Sodium 132, Potassium 3.4 L, Chloride 95 L, Carbon Dioxide 28, Anion Gap 13, BUN 38 H, Creatinine 1.1, Est GFR ( Amer) > 60, Est GFR ( Non-Af Amer) > 60, Random Glucose 118 H, Calcium 9.3, Total Bilirubin 1.1, AST 45, ALT 34, Alkaline Phosphatase 72, Lactate Dehydrogenase 412, Total Creatine Kinase < 20 L, Troponin I < 0.01, NT-Pro-B Natriuret Pep 673 H, Total Protein 6.6, Albumin 3.3, Globulin 3.3, Albumin/Globulin Ratio 1.0 L I have reviewed the lab results: Yes - RAD Interpretation Radiology Orders: 10/29/17 23:39 CHEST PORTABLE [RAD] Stat - EKG Interpretation Interpreted by ED Physician: Yes Type: 12 lead EKG - Scribe Statement The provider has reviewed the documentation as recorded by the Jeffrey Rubio Provider Scribe Attestation: All medical record entries made by the Colletteibe were at my direction and personally dictated by me. I have reviewed the chart and agree that the record accurately reflects my personal performance of the history, physical exam, medical decision making, and the department course for this patient. I have also personally directed, reviewed, and agree with the discharge instructions and disposition. Disposition/Present on Arrival - Present on Arrival Any Indicators Present on Arrival: No History of DVT/PE: No History of Uncontrolled Diabetes: No Urinary Catheter: No History of Decub. Ulcer: No History Surgical Site Infection Following: None - Disposition Have Diagnosis and Disposition been Completed?: Yes Diagnosis: Dyspnea on exertion, Laryngeal cancer, Coronary artery disease Disposition: HOSPITALIZED Disposition Time: 03:18 Patient Plan: Observation Patient Problems: Current Active Problems Problem Status Onset Coronary artery disease Acute Dyspnea on exertion Acute Laryngeal cancer Acute Condition: STABLE
[2017-10-30 00:34] VITALS: BMI 16.9
[2017-10-30 00:53] LABS: HEMOGLOBIN 10.1 g/dL (14.0-18.0); MEAN CORPUSCULAR HEMOGLOBIN 28.6 pg (25.0-35.0); MEAN CORPUSCULAR HGB CONC 32.9 g/dl (31.0-37.0); MEAN PLATELET VOLUME 9.9 fl (7.0-11.0); RBC 3.53 10^6/uL (3.5-6.1); RED CELL DISTRIBUTION WIDTH 14.8 % (11.5-14.5); WHITE BLOOD COUNT 7.6 10^3/ul (4.5-11.0)
[2017-10-30 00:56] LABS: INR 1.02 (0.93-1.08); PARTIAL THROMBOPLASTIN TIME 29.4 Seconds (25.1-36.5); PROTHROMBIN TIME 11.6 SECONDS (9.4-12.5)
[2017-10-30 01:08] LABS: B-TYPE NATRIURETIC PEPTIDE 673 pg/mL (0-450); TROPONIN I < 0.01 ng/mL
[2017-10-30 01:13] LABS: ALBUMIN 3.3 g/dL (3.0-4.8); ALT/SGPT 34 U/L (7-56); AST/SGOT 45 U/L (17-59); BLOOD UREA NITROGEN 38 mg/dL (7-21); CALCIUM 9.3 mg/dL (8.4-10.5); GFR AFRICAN-AMERICAN > 60; GFR NON-AFRICAN AMERICAN > 60
--- NOTE | 2017-10-30 08:08 | RAD ---
HISTORY: sob COMPARISON: 12/29/2016 FINDINGS: LUNGS: There is evidence of COPD. There is pleural and parenchymal scarring in both lung apices. Linear scarring at the lung bases. PLEURA: No significant pleural effusion identified, no pneumothorax apparent. CARDIOVASCULAR: Normal. OSSEOUS STRUCTURES: Sternal wires VISUALIZED UPPER ABDOMEN: Normal. OTHER FINDINGS: None. IMPRESSION: No active disease.
[2017-10-30] MEDS ORDERED: metOLazone 2.5 MG TAB PO SCH (10:00)
[2017-10-30] MEDS ORDERED: PRAVASTATIN SODIUM 20 MG PEG SCH (10:00)
[2017-10-30] MEDS ORDERED: METOPROLOL HCTZ PEG SCH (10:00)
[2017-10-30 10:17] LABS: BASO # 0.02 K/mm3 (0.0-2.0); BASO % 0.2 % (0.0-3.0); EOS # 0.9 (0.0-0.7); EOS % 10.1 % (1.5-5.0); GRAN # 5.97 (1.4-6.5); GRAN % 66.7 % (50.0-68.0); HEMOGLOBIN 9.8 g/dL (14.0-18.0); LYMPH % 11.1 % (22.0-35.0); MEAN CELL VOLUME 87.8 fl (80.0-105.0); MEAN CORPUSCULAR HEMOGLOBIN 29.1 pg (25.0-35.0); MEAN CORPUSCULAR HGB CONC 33.1 g/dl (31.0-37.0); MEAN PLATELET VOLUME 9.4 fl (7.0-11.0); MONO # 1.1 (0.1-0.6); MONO % 11.9 % (1.0-6.0); RBC 3.37 10^6/uL (3.5-6.1); RED CELL DISTRIBUTION WIDTH 14.8 % (11.5-14.5); WHITE BLOOD COUNT 8.9 10^3/ul (4.5-11.0)
--- NOTE | 2017-10-30 10:27 | CARD ---
APPROVED REPORT EKG Measurement Heart [id number] <Conclusion> Normal sinus rhythm with sinus arrhythmia Normal ECG
[2017-10-30 10:28] LABS: ALBUMIN 3.2 g/dL (3.0-4.8); ALT/SGPT 33 U/L (7-56); AST/SGOT 37 U/L (17-59); BLOOD UREA NITROGEN 30 mg/dL (7-21); CALCIUM 9.1 mg/dL (8.4-10.5); GFR AFRICAN-AMERICAN > 60; GFR NON-AFRICAN AMERICAN > 60
[2017-10-30] MEDS: metOLazone 2.5 MG TAB PEG SCH (10:30)
[2017-10-30] MEDS: Silver Sulfadiazine 1% Cream (25 gm) TP SCH ×2 (10:30→18:13)
[2017-10-30] MEDS: Potassium Chloride 20 mEq ER Tab PO SCH ×2 (10:32→18:12)
--- NOTE | 2017-10-30 10:49 | CP.PCM.CON ---
History of Present Illness - History of Present Illness History of Present Illness: Mr Vila is a 87 year old gentleman who is known to our department. He completed chemoradiation on September 13, 2017. He stated that approximately a couple of weeks ago, he had a small area of irritation along the left neck. Subsequently, the area became more irritated. He stated that he was started on cefalexin with Dr Smith as an outpatient. In the past 3-4 days, he states that the irritation spread along the left shoulder/chest and left arm. He developed shortness of breath acutely for which he came to the hospital. Incidentally, he states that he has been having issues swallowing in the past 7- 10 days. He was scheduled to see us today for a routine 7 week follow up visit , however we were informed that he was admitted. Review of Systems - Respiratory Respiratory: Dyspnea, Dyspnea on Exertion - Integumentary Integumentary: Erythema, Skin Ulcer Additional comments: Fulminant infection of the left shoulder extending to the left chest and proximal left arm with scabs. Past Patient History - Infectious Disease Hx of Infectious Diseases: None - Past Social History Smoking Status: Former Smoker - CARDIAC Hx Cardiac Disorders: Yes Hx Hypertension: Yes - PULMONARY Hx Chronic Obstructive Pulmonary Disease (COPD): Yes - NEUROLOGICAL Hx Neurological Disorder: No - HEENT Hx HEENT Problems: Yes Other/Comment: THROAT CA - RENAL Hx Chronic Kidney Disease: No - ENDOCRINE/METABOLIC Hx Endocrine Disorders: No - HEMATOLOGICAL/ONCOLOGICAL Hx Cancer: Yes (throat) - INTEGUMENTARY Hx Dermatological Problems: No - MUSCULOSKELETAL/RHEUMATOLOGICAL Hx Falls: Yes - GASTROINTESTINAL Other/Comment: peg tube placement - GENITOURINARY/GYNECOLOGICAL Hx Reproductive Disorders: No - PSYCHIATRIC Hx Psychophysiologic Disorder: No Hx Substance Use: No - SURGICAL HISTORY Other/Comment: G TUBE, PORT R UPPER CHEST. - ANESTHESIA Hx Anesthesia: Yes Meds Allergies/Adverse Reactions: Allergies Allergy/AdvReac Type Severity Reaction Status Date / Time No Known Allergies Allergy Verified 10/30/17 02:46 - Medications Medications: Current Medications Aspirin (Aspirin Chewable) 81 mg PEG DAILY [facility] Last Admin: 10/30/17 10:29 Dose: 81 mg Atorvastatin Calcium (Lipitor) 10 mg PEG DAILY [facility] Last Admin: 10/30/17 10:30 Dose: 10 mg Cephalexin Monohydrate (Keflex) 250 mg PEG Q6 [facility] PRN Reason: Protocol Clopidogrel Bisulfate (Plavix) 75 mg PEG DAILY [facility] Last Admin: 10/30/17 10:29 Dose: 75 mg Hydrochlorothiazide (Hydrodiuril) 12.5 mg PEG DAILY [facility] Last Admin: 10/30/17 10:29 Dose: 12.5 mg Potassium Chloride (Potassium Chloride 20 Meq/100 Ml) 20 meq in 100 mls @ 50 mls/hr IVPB ONCE ONE Stop: 10/30/17 10:48 Last Admin: 10/30/17 10:30 Dose: 50 mls/hr Metolazone (Zaroxolyn) 2.5 mg PEG DAILY [facility] Last Admin: 10/30/17 10:30 Dose: 2.5 mg Metoprolol Tartrate (Lopressor) 25 mg PEG Q12H [facility] Last Admin: 10/30/17 10:31 Dose: 25 mg Non-Formulary Medication (Ultra Coq10) 100 mg PEG MWF [facility] Pantoprazole Sodium (Protonix Inj) 40 mg IVP DAILY [facility] Last Admin: 10/30/17 10:30 Dose: 40 mg Potassium Chloride (K-Dur 20 Meq Er Tab) 20 meq PO BID [facility] Last Admin: 10/30/17 10:32 Dose: Not Given Silver Sulfadiazine (Silvadene 1% 25 Gm) 0 gm TP BID [facility] Last Admin: 10/30/17 10:30 Dose: 25 gm Physical Exam - Eye Exam Eye Exam: EOMI - ENT Exam ENT Exam: Mucous Membranes Dry - Respiratory Exam Respiratory Exam: Clear to Auscultation Bilateral - Cardiovascular Exam Cardiovascular Exam: REGULAR RHYTHM - Skin Skin Exam: Erythema Additional comments: Diffuse erythematous skin infection with multiple dried scabs along the left shoulder, left upper chest and left proximal arm Results - Vital Signs Recent Vital Signs: Last Vital Signs Temp 98.1 F 10/30/17 09:11 Pulse 89 10/30/17 09:11 Resp 20 10/30/17 09:11 BP 114/60 10/30/17 09:11 Pulse Ox 100 10/30/17 09:11 - Labs Result Diagrams: 10/30/17 00:30 10/30/17 09:50 Labs: Laboratory Results - last 24 hr 10/30/17 09:50 Sodium 135 Potassium 3.4 L Chloride 98 Carbon Dioxide 31 Anion Gap 9 L BUN 30 H Creatinine 1.0 Est GFR ( Amer) > 60 Est GFR (Non-Af Amer) > 60 Random Glucose 98 Calcium 9.1 Phosphorus 3.2 Magnesium 2.2 Total Bilirubin 1.1 AST 37 ALT 33 Alkaline Phosphatase 67 Total Protein 6.3 Albumin 3.2 Globulin 3.1 Albumin/Globulin Ratio 1.0 L Assessment & Plan - Assessment and Plan (Free Text) Assessment: Mr Vila is a 87 year old gentleman with a history of a laryngeal cancer status post chemoradiation on September 13, 2017. He was recently admitted with shortness of breath, but incidentally also has had a worsening skin infection of the left shoulder, chest and left arm. He is currently on keflex, however given his MRSA history and clinical findings, it is quite feasible that this infection is not sensitive to the keflex. We spoke with Dr Smith who will be getting an ID consult for evaluation. Mr Vila lives by himself, and is not able to take care of himself adequately. When we inquired about the evolution of this infection and why he did not contact anyone sooner, he felt it happened overnight. Also, he stated that at one point, he thought it was getting better. The skin reaction is not a radiation dermatitis, but an infection. The majority of the current skin infection was not in the radiation field. Once this acute issue has resolved, he will need a PET scan as an outpatient to assess his cancer response to treatment.
[2017-10-30] MEDS ORDERED: Pneumococcal 23-Valent Vaccine IM ONE (11:05)
[2017-10-30] MEDS ORDERED: Influenza Vaccine 60 mcg/0.5 mL SYR (4YR UP) IM ONE (11:05)
--- NOTE | 2017-10-30 11:31 | CARD ---
APPROVED REPORT EKG Measurement Heart [id number] <Conclusion> RSR Artifact present. PWNL No change
[2017-10-30] MEDS: Linezolid 600 mg in D5W 300 ml 600 MG/300 ML BAG IVPB SCH ×2 (13:04→21:44)
[2017-10-30] MEDS: Cefepime 1gm in NS 100ml 1 GM/100 ML BAG IVPB SCH (15:02)
--- NOTE | 2017-10-30 15:35 | CP.PCM.HP ---
Addendum entered and electronically signed by Vadim Brooks DO 11/01/17 07:09: - Skin Skin Exam: Dry, Intact, Normal Color, Warm (Except as listed below) Additional comments: Sternotomy wires visualized pushing up skin at sternum, right chest port easily visualized through skin, but neither with breakdown or breakthrough of skin Left sided rash, patchy, extending from left posterior neck to left arm, shoulder, and left superior chest wall involvement. Extensive scattered scabbing overlying, no active oozing or bleeding at time of exam, warm to touch compared to surrounding skin but not acutely tender, no sloughing of skin on palpation Original Note: <Vadim Brooks - Last Filed: 10/30/17 15:09> History of Present Illness - History of Present Illness History of Present Illness: H&P for Dr. 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 As per patient, he first noted a small rash with clear vesicles 5-6 days prior, which he has been treated with bactroban ointment, however the rash has progressively enlarged in the last 3 days, and now extends from posterio-lateral aspect of left neck to should, axillary region, and left arm. He notes extensive crusting/scabbing of the area , which always comes off when washing and reapplying bactroban ointment to the area, but then re-develops. He denies any history of early bleeding, does not report obvious bleeding or bleeding through clothes overlying the site at home. Reports mild discomfort and burning at the site of the rash, denies sharp or stabbing pain at those site, denies sloughing of skin or mere blisters or vesicles forming, or prutiritis at or surrounding the site. Denies any similar rashes in the past, and reports that this isn't the first time he has used bactroban cream. Denies any recent medication changes, recent changes in soaps or detergents. Denies swelling at site of rash or joints covered by rash, no pain with movement of the arm, no purulent discharge from site noted. Denies fevers, chills, nausea, emesis, diarrhea, focal weakness. No site of rash or swelling at R-chest port. Denies any sick contacts at home. Of note, patient additionally complains of increased hoarseness co-presenting with increased difficulty swallowing in last 3-4 days, and shortness of breath with minimal exertion in the house for the last 3 days. Denies shortness of breath at rest. Minimal PO intake due to lack of appetite, but has been able to take all home meds via PEG tube or by crushing them. Denies hemoptysis, productive cough, persistence of food or sensation of mass in airway. Denies any aspiration, and appears to be able to protect his airway. Completed chemoradiation on September 13, 2017, as per Rad onc. All other ROS in 12-system review negative. PMH: as above PSH: PEG tube, R-upper chest port, shoulder and R knee replacement Fam Hx: denies Social Hx: former tobacco abuser (quit > 5 years ago), denies alcohol or illicits PMD: Dr. Smith & Dr. Keith Present on Admission - Present on Admission Any Indicators Present on Admission: No History of DVT/PE: No History of Uncontrolled Diabetes: No Urinary Catheter: No Review of Systems - Review of Systems All systems: reviewed and no additional remarkable complaints except (as per HPI ) Past Patient History - Infectious Disease Hx of Infectious Diseases: None - Past Social History Smoking Status: Former Smoker - CARDIAC Hx Cardiac Disorders: Yes Hx Hypertension: Yes - PULMONARY Hx Chronic Obstructive Pulmonary Disease (COPD): Yes - NEUROLOGICAL Hx Neurological Disorder: No - HEENT Hx HEENT Problems: Yes Other/Comment: THROAT CA - RENAL Hx Chronic Kidney Disease: No - ENDOCRINE/METABOLIC Hx Endocrine Disorders: No - HEMATOLOGICAL/ONCOLOGICAL Hx Cancer: Yes (throat) - INTEGUMENTARY Hx Dermatological Problems: No - MUSCULOSKELETAL/RHEUMATOLOGICAL Hx Falls: Yes - GASTROINTESTINAL Other/Comment: peg tube placement - GENITOURINARY/GYNECOLOGICAL Hx Reproductive Disorders: No - PSYCHIATRIC Hx Psychophysiologic Disorder: No Hx Substance Use: No - SURGICAL HISTORY Other/Comment: G TUBE, PORT R UPPER CHEST. - ANESTHESIA Hx Anesthesia: Yes Meds Allergies/Adverse Reactions: Allergies Allergy/AdvReac Type Severity Reaction Status Date / Time No Known Allergies Allergy Verified 11/02/17 18:51 Physical Exam - Constitutional Appears: Non-toxic, No Acute Distress, Cachectic (very cachetic, can see sternotomy wires from CABG pushing up through skin at sterum), Chronically Ill - Head Exam Head Exam: ATRAUMATIC, NORMAL INSPECTION, NORMOCEPHALIC - Eye Exam Eye Exam: EOMI, Normal appearance. absent: Conjunctival injection, Scleral icterus Pupil Exam: absent: Irregular, Unequal - ENT Exam ENT Exam: Mucous Membranes Dry Additional comments: Hoarseness No petechiae or active bleeding sources identified No exudates or candidiasis appreciated - Neck Exam Neck exam: Positive for: Full Rom (some discomfort when moving head towards left side (rotation and side-bending), but no physical barrier/impairment of ROM ) - Respiratory Exam Respiratory Exam: Clear to Auscultation Bilateral, NORMAL BREATHING PATTERN. absent: Accessory Muscle Use, Rales, Rhonchi, Wheezes - Cardiovascular Exam Cardiovascular Exam: REGULAR RHYTHM, RRR, +S1, +S2. absent: Bradycardia, Tachycardia, Irregular Rhythm, +S4 - GI/Abdominal Exam GI & Abdominal Exam: Normal Bowel Sounds, Soft. absent: Diminished Bowel Sounds , Distended, Firm, Hyperactive Bowel Sounds, Hypoactive Bowel Sounds, Rigid, Tenderness - Extremities Exam Extremities exam: Positive for: pedal pulses present. Negative for: calf tenderness, pedal edema, tenderness Additional comments: mildly waxy-like skin at bilateral LE from extending from feet to ankles distal LE warm to palpation - Neurological Exam Neurological exam: Alert, Oriented x3 Additional comments: following all commands appropriately, moving all extremities spontaneously motor appears grossly intact and equal bilaterally - Psychiatric Exam Psychiatric exam: Normal Affect, Normal Mood - Skin Skin Exam: Dry, Intact, Normal Color, Warm Additional comments: Sternotomy wires visualized pushing up skin at sternum, right chest port easily visualized through skin, but neither with breakdown or breakthrough of skin Results - Vital Signs Recent Vital Signs: Last Vital Signs Temp 98.1 F 10/30/17 09:11 Pulse 89 10/30/17 09:11 Resp 20 10/30/17 09:11 BP 114/60 10/30/17 09:11 Pulse Ox 100 10/30/17 09:11 - Labs Result Diagrams: 10/30/17 09:50 10/30/17 09:50 Labs: Laboratory Results - last 24 hr 10/30/17 10/30/17 10/30/17 09:50 09:50 10:00 WBC 8.9 RBC 3.37 L Hgb 9.8 L Hct 29.6 L MCV 87.8 MCH 29.1 MCHC 33.1 RDW 14.8 H Plt Count 264 MPV 9.4 Gran % 66.7 Lymph % (Auto) 11.1 L [place] % (Auto) 11.9 H Eos % (Auto) 10.1 H Baso % (Auto) 0.2 Gran # 5.97 Lymph # (Auto) 1.0 L [place] # (Auto) 1.1 H Eos # (Auto) 0.9 H Baso # (Auto) 0.02 Sodium 135 Potassium 3.4 L Chloride 98 Carbon Dioxide 31 Anion Gap 9 L BUN 30 H Creatinine 1.0 Est GFR ( Amer) > 60 Est GFR (Non-Af Amer) > 60 Random Glucose 98 Calcium 9.1 Phosphorus 3.2 Magnesium 2.2 Total Bilirubin 1.1 AST 37 ALT 33 Alkaline Phosphatase 67 Troponin I < 0.01 Total Protein 6.3 Albumin 3.2 Globulin 3.1 Albumin/Globulin Ratio 1.0 L Assessment & Plan - Assessment and Plan (Free Text) Assessment: This is an 87 yo M with PMH of 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 (on radiation and Erbitux therapy) HTN CAD s/p CABG Expanding rash along left neck/shoulder/arm, r/o cellulitis vs drug reaction Shortness of breath Increased difficulty swallowing -Rash concerning for cellulitis vs Fortunato's Raj vs Toxic Epidermal Necrolysis vs allergic rxn; lack of fever makes TEN less likely, lack of pruritis makes allergic rxn less likely -Hx of MRSA cellulitis, but due to likely ATN patient experienced after last treatment with Vancomycin, will hold off on Vanco at this time, ID consulted -SOB etiology unclear, EKG on admit notable for NSR at 94 with sinus arrhythmia and normal intervals, repeat EKG today has notable artifacting, CXR on admit suggestive of COPD but read as no active disease, appreciate Cardio's insight -Cefepime 1g q8 ordered, pending eval and recs by ID, holding home Keflex -Continue ASA and Plavix given hx of CAD s/p CABG, Cardio consulted given shortness of breath and cardiac hx, appreciate all recs -continue metolazone, Metoprolol, and HCTZ (cannot use Metoprolol-HCTZ combo pill via PEG as per pharmacy, switched to constituent meds) -continue Lipitor given cardiac disease hx -Continue Protonix for GI ppx -Swallow study ordered -[employer] consulted for tube feeding until swallow study passed, would rec 7-8 cans of Jevity per day, but patient reports only able to tolerate 4-5 per day -Cardio, GI, Rad-onc, and ID consulted, appreciate all recs Patient reviewed and discussed at length with attending, Dr. Smith. Decision To Admit - Pt Status Changed To: Hospital Disposition Of: Inpatient Admission - Admit Certification Admit to Inpatient:: After my assessment, the patient will require hospitalization for at least two midnights. This is because of the severity of symptoms shown, intensity of services needed, and/or the medical risk in this patient being treated as an outpatient. - . Bed Request Type: Med/Surg <Mustapha Smith - Last Filed: 11/03/17 19:26> Results - Vital Signs Recent Vital Signs: Last Vital Signs Temp 98.2 F 11/02/17 08:35 Pulse 89 11/02/17 10:00 Resp 20 11/02/17 08:35 BP 118/59 L 11/02/17 10:00 Pulse Ox 97 11/02/17 08:35 - Labs Result Diagrams: 11/02/17 05:00 11/02/17 05:49 Attending/Attestation - Attestation I have personally seen and examined this patient.: Yes I have fully participated in the care of the patient.: Yes I have reviewed all pertinent clinical information: Yes
--- NOTE | 2017-10-30 16:19 | CP.PCM.CON ---
History of Present Illness - History of Present Illness History of Present Illness: 87 year old male with PMH of laryngeal CA, CAD s/p Cornary artery bypass surgery , and skin tumors was admitted in August 2017 for cellulitis of the left side of the neck associated with radiation dermatitis. He improved with antibiotics and Silver sulfadiazine cream. He is still undergoing chemotherapy and radiation , ad 10 days ago, he again had another skin eruption but this time lower on the left side of the neck and on the left chest area and shoulder area. It also started crusting about a week ago and has been spreading despite the silver sulfadiazine cream. He denies fever or chills, no nausea or vomiting, no chest pain, no SOB, no headache or dizziness, no abdominal pain, no diarrhea, no dysuria. Infectious Diseases consult is requested to further evaluate and manage. Review of Systems - Review of Systems All systems: reviewed and no additional remarkable complaints except (as per HPI ) Past Patient History - Infectious Disease Hx of Infectious Diseases: None - Past Social History Smoking Status: Former Smoker - CARDIAC Hx Cardiac Disorders: Yes Hx Hypertension: Yes - PULMONARY Hx Chronic Obstructive Pulmonary Disease (COPD): Yes - NEUROLOGICAL Hx Neurological Disorder: No - HEENT Hx HEENT Problems: Yes Other/Comment: THROAT CA - RENAL Hx Chronic Kidney Disease: No - ENDOCRINE/METABOLIC Hx Endocrine Disorders: No - HEMATOLOGICAL/ONCOLOGICAL Hx Cancer: Yes (throat) - INTEGUMENTARY Hx Dermatological Problems: No - MUSCULOSKELETAL/RHEUMATOLOGICAL Hx Falls: Yes - GASTROINTESTINAL Other/Comment: peg tube placement - GENITOURINARY/GYNECOLOGICAL Hx Reproductive Disorders: No - PSYCHIATRIC Hx Psychophysiologic Disorder: No Hx Substance Use: No - SURGICAL HISTORY Other/Comment: G TUBE, PORT R UPPER CHEST. - ANESTHESIA Hx Anesthesia: Yes Meds Allergies/Adverse Reactions: Allergies Allergy/AdvReac Type Severity Reaction Status Date / Time No Known Allergies Allergy Verified 10/30/17 02:46 - Medications Medications: Current Medications Aspirin (Aspirin Chewable) 81 mg PEG DAILY [facility] Last Admin: 10/30/17 10:29 Dose: 81 mg Atorvastatin Calcium (Lipitor) 10 mg PEG DAILY [facility] Last Admin: 10/30/17 10:30 Dose: 10 mg Clopidogrel Bisulfate (Plavix) 75 mg PEG DAILY [facility] Last Admin: 10/30/17 10:29 Dose: 75 mg Hydrochlorothiazide (Hydrodiuril) 12.5 mg PEG DAILY [facility] Last Admin: 10/30/17 10:29 Dose: 12.5 mg Cefepime HCl (Maxipime 1gm) 1 gm in 100 mls @ 100 mls/hr IVPB Q8 [facility] PRN Reason: Protocol Metolazone (Zaroxolyn) 2.5 mg PEG DAILY [facility] Last Admin: 10/30/17 10:30 Dose: 2.5 mg Metoprolol Tartrate (Lopressor) 25 mg PEG Q12H [facility] Last Admin: 10/30/17 10:31 Dose: 25 mg Non-Formulary Medication (Ultra Coq10) 100 mg PEG MWF [facility] Pantoprazole Sodium (Protonix Inj) 40 mg IVP DAILY [facility] Last Admin: 10/30/17 10:30 Dose: 40 mg Potassium Chloride (K-Dur 20 Meq Er Tab) 20 meq PO BID [facility] Last Admin: 10/30/17 10:32 Dose: Not Given Silver Sulfadiazine (Silvadene 1% 25 Gm) 0 gm TP BID [facility] Last Admin: 10/30/17 10:30 Dose: 25 gm Physical Exam - Constitutional Appears: Cachectic, Chronically Ill - Head Exam Head Exam: NORMAL INSPECTION - ENT Exam ENT Exam: Mucous Membranes Moist Additional comments: left side of neck, shoulder and chest area with crusting lesions (honey-colored ) with areas and weeping - Neck Exam Neck exam: Negative for: Meningismus - Respiratory Exam Respiratory Exam: Decreased Breath Sounds - Cardiovascular Exam Cardiovascular Exam: +S1, +S2 - GI/Abdominal Exam GI & Abdominal Exam: Soft. absent: Tenderness Results - Vital Signs Recent Vital Signs: Last Vital Signs Temp 98.1 F 10/30/17 09:11 Pulse 89 10/30/17 09:11 Resp 20 10/30/17 09:11 BP 114/60 10/30/17 09:11 Pulse Ox 100 10/30/17 09:11 - Labs Result Diagrams: 10/30/17 09:50 10/30/17 09:50 Labs: Laboratory Results - last 24 hr 10/30/17 10/30/17 10/30/17 09:50 09:50 10:00 WBC 8.9 RBC 3.37 L Hgb 9.8 L Hct 29.6 L MCV 87.8 MCH 29.1 MCHC 33.1 RDW 14.8 H Plt Count 264 MPV 9.4 Gran % 66.7 Lymph % (Auto) 11.1 L [place] % (Auto) 11.9 H Eos % (Auto) 10.1 H Baso % (Auto) 0.2 Gran # 5.97 Lymph # (Auto) 1.0 L [place] # (Auto) 1.1 H Eos # (Auto) 0.9 H Baso # (Auto) 0.02 Sodium 135 Potassium 3.4 L Chloride 98 Carbon Dioxide 31 Anion Gap 9 L BUN 30 H Creatinine 1.0 Est GFR ( Amer) > 60 Est GFR (Non-Af Amer) > 60 Random Glucose 98 Calcium 9.1 Phosphorus 3.2 Magnesium 2.2 Total Bilirubin 1.1 AST 37 ALT 33 Alkaline Phosphatase 67 Troponin I < 0.01 Total Protein 6.3 Albumin 3.2 Globulin 3.1 Albumin/Globulin Ratio 1.0 L Assessment & Plan - Assessment and Plan (Free Text) Plan: Assessment superinfection of left side of neck with bacteria histroy of radiation dermatitis on left side of neck with superimposed cellulitis, growing MRSA acute renal failure, R/O Vancomycin-induced nephrotoxicity, slowly improving throat cancer S/P port placement on chemotherapy and radiation therapy S/P PEG placement Plan started Zyvox and Bactroban ointment and follow up blood cx and wound cx overall prognosis is poor
--- NOTE | 2017-10-30 20:24 | CON ---
DATE: 10/30/2017 INDICATIONS: Dyspnea. HISTORY OF PRESENT ILLNESS: This is an 87-year-old man, well known to me, admitted with dyspnea on exertion, present for a few days. He came to the emergency room. He was admitted to telemetry. He has complicated medical problems. He is undergoing treatment for invasive laryngeal carcinoma, getting radiation therapy and chemotherapy by Dr. Smith. He has had poor nutrition and has a PEG tube for feeding. 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 He has known coronary artery disease with coronary bypass surgery in the past. There has been no chest pain, orthopnea, PND, syncope, presyncope, lightheadedness, dizziness, vertigo, edema, palpitation, fever, chills, sputum production, hemoptysis, abdominal pain, nausea, vomiting, diarrhea, constipation, or melena. PAST MEDICAL HISTORY: Includes coronary artery disease, coronary bypass surgery, hyperlipidemia, hypertension, COPD, multiple orthopedic procedures. There is no history of rheumatic fever, myocardial infarction, congestive heart failure, diabetes, stroke, TIA, or gout. MEDICATIONS: At the time of admission include; Plavix, metoprolol, pravastatin, aspirin, Protonix, cephalexin, and Zaroxolyn. ALLERGIES: THERE ARE NO MEDICATION ALLERGIES. SOCIAL HISTORY: He is . He lives alone. He is ambulatory. He no longer smokes. He does not drink alcohol significantly. FAMILY HISTORY: Noncontributory. REVIEW OF SYSTEMS: A 10-point review of systems otherwise unremarkable except as noted above. PHYSICAL EXAMINATION: GENERAL: He is a well-developed elderly male, lying in bed on telemetry, in acute distress. VITAL SIGNS: Notable for sinus rhythm, 59 to 89 beats per minute, afebrile. Blood pressure 114/60, respirations 20, O2 sat 99% to 100% on nasal cannula. HEENT: Mucous membranes are moist. Conjunctivae pink. NECK: Reveal no neck vein distention, thyromegaly, or carotid bruits. Supple. LUNGS: Lung jules, a few scattered rhonchi. HEART: Reveals a regular rhythm. Normal first and second heart sounds without murmur, gallop, rub, or click. ABDOMEN: Soft. Bowel sounds are present. No mass, organomegaly, tenderness, rebound, guarding, CVA tenderness, or palpable abdominal aortic aneurysm. EXTREMITIES: Reveals no cyanosis, clubbing, or edema. NEUROLOGIC: He is awake, alert, and oriented. PSYCHIATRIC: Normal as to mood and affect. SKIN: Warm and dry. LABORATORY AND IMAGING: EKG demonstrates a regular sinus rhythm, LVH by voltage, no acute changes. Chest x-ray reveals no active disease. White count normal. Hemoglobin 10.1, hematocrit 30.7, and platelet count 282,000. PT, INR, and PTT unremarkable. Electrolytes notable for potassium of 3.4. BUN 38, creatinine 1.1. Blood sugar 118. LFTs unremarkable. CK less than 20. Troponin less than 0.01. BNP 673. IMPRESSION: Jw Vila is an 87-year-old man with worsening dyspnea on exertion. He has known underlying coronary artery disease with remote coronary bypass surgery. He is undergoing treatment for invasive laryngeal carcinoma, getting radiation therapy and chemotherapy. He has a PEG tube. He has had radiation bee. He is under the care of Dr. Smith's group. At this time, I will get serial EKGs and enzymes. I will review his old records. I will order an echocardiogram. He is getting aspirin, hydrochlorothiazide, potassium replacement, Keflex, Lipitor, metoprolol, Plavix, Protonix, and Zaroxolyn. We will check stool for occult blood. He can be out of bed to chair and ambulate with assistance. He is frail. He is a fall risk. He will have Oncology and nutrition followup, He will have ENT followup. I will follow along with you. I will make additional recommendations based on his clinical course. Humberto Rausch MD [facility]
[2017-10-30] MEDS: Potassium Chloride 20 mEq/15 ml LIQ UD PEG SCH (20:29)
[2017-10-31] MEDS: Cefepime 1gm in NS 100ml 1 GM/100 ML BAG IVPB SCH (01:54)
[2017-10-31 07:06] LABS: BASO # 0.03 K/mm3 (0.0-2.0); BASO % 0.4 % (0.0-3.0); EOS # 1.2 (0.0-0.7); EOS % 15.6 % (1.5-5.0); GRAN # 4.56 (1.4-6.5); GRAN % 60.8 % (50.0-68.0); HEMOGLOBIN 9.3 g/dL (14.0-18.0); LYMPH % 13.9 % (22.0-35.0); MEAN CELL VOLUME 87.8 fl (80.0-105.0); MEAN CORPUSCULAR HEMOGLOBIN 29.2 pg (25.0-35.0); MEAN CORPUSCULAR HGB CONC 33.2 g/dl (31.0-37.0); MEAN PLATELET VOLUME 9.3 fl (7.0-11.0); MONO # 0.7 (0.1-0.6); MONO % 9.3 % (1.0-6.0); RBC 3.19 10^6/uL (3.5-6.1); RED CELL DISTRIBUTION WIDTH 14.4 % (11.5-14.5); WHITE BLOOD COUNT 7.5 10^3/ul (4.5-11.0)
[2017-10-31 07:19] LABS: ALB/GLOB RATIO 0.9 (1.1-1.8); ALBUMIN 2.8 g/dL (3.0-4.8); ALT/SGPT 32 U/L (7-56); AST/SGOT 30 U/L (17-59); BLOOD UREA NITROGEN 23 mg/dL (7-21); CALCIUM 8.7 mg/dL (8.4-10.5); GFR AFRICAN-AMERICAN > 60; GFR NON-AFRICAN AMERICAN > 60
[2017-10-31] MEDS ORDERED: ULTRA COQ10 100 MG PEG SCH (10:00)
[2017-10-31] MEDS ORDERED: Morphine 2 mg/ml ISec IVP STA (10:19)
[2017-10-31] MEDS: metOLazone 2.5 MG TAB PEG SCH (10:33)
[2017-10-31] MEDS: Silver Sulfadiazine 1% Cream (25 gm) TP SCH ×2 (10:37→18:40)
[2017-10-31] MEDS: Potassium Chloride 20 mEq/15 ml LIQ UD PEG SCH ×2 (10:40→18:40)
[2017-10-31] MEDS: Linezolid 600 mg in D5W 300 ml 600 MG/300 ML BAG IVPB SCH ×2 (10:47→22:08)
--- NOTE | 2017-10-31 17:27 | CP.PCM.PN ---
Subjective - Date & Time of Evaluation Date of Evaluation: 10/31/17 Time of Evaluation: 10:45 - Subjective Subjective: Still with pain on the left side of the neck and chest, although a little better. No fevers. Objective - Vital Signs/Intake and Output Vital Signs (last 24 hours): Temp Pulse Resp BP Pulse Ox 98.7 F 67 18 102/62 99 10/31/17 06:00 10/31/17 10:37 10/31/17 06:00 10/31/17 10:37 10/31/17 06:00 Intake and Output: 10/31/17 10/31/17 06:59 18:59 Intake Total 1340 120 Output Total 1100 375 Balance 240 -255 - Medications Medications: Current Medications Aspirin (Aspirin Chewable) 81 mg PEG DAILY [facility] Last Admin: 10/31/17 10:34 Dose: 81 mg Atorvastatin Calcium (Lipitor) 10 mg PEG DAILY [facility] Last Admin: 10/31/17 10:33 Dose: 10 mg Clopidogrel Bisulfate (Plavix) 75 mg PEG DAILY [facility] Last Admin: 10/31/17 10:40 Dose: 75 mg Hydrochlorothiazide (Hydrodiuril) 12.5 mg PEG DAILY [facility] Last Admin: 10/31/17 10:33 Dose: 12.5 mg Cefepime HCl (Maxipime 1gm) 1 gm in 100 mls @ 100 mls/hr IVPB Q12H [facility] PRN Reason: Protocol Last Admin: 10/31/17 01:54 Dose: 100 mls/hr Linezolid (Zyvox 600mg/300ml D5w) 600 mg in 300 mls @ 200 mls/hr IVPB Q12 [facility] PRN Reason: Protocol Stop: 11/06/17 12:16 Last Admin: 10/31/17 10:47 Dose: 200 mls/hr Metolazone (Zaroxolyn) 2.5 mg PEG DAILY [facility] Last Admin: 10/31/17 10:33 Dose: 2.5 mg Metoprolol Tartrate (Lopressor) 25 mg PEG Q12H [facility] Last Admin: 10/31/17 10:37 Dose: 25 mg Mupirocin (Bactroban Ointment) 0 gm TOP BID [facility] Last Admin: 10/31/17 10:37 Dose: 1 appl Non-Formulary Medication (Ultra Coq10) 100 mg PEG MWF [facility] Pantoprazole Sodium (Protonix Inj) 40 mg IVP DAILY [facility] Last Admin: 10/31/17 10:33 Dose: 40 mg Potassium Chloride (Potassium Chloride Oral Soln) 20 meq PEG BID [facility] Last Admin: 10/31/17 10:40 Dose: 20 meq Silver Sulfadiazine (Silvadene 1% 25 Gm) 0 gm TP BID [facility] Last Admin: 10/31/17 10:37 Dose: 25 gm - Labs Labs: 10/31/17 05:00 10/31/17 05:00 PT 11.6 SECONDS (9.4-12.5) 10/30/17 00:30 INR 1.02 (0.93-1.08) 10/30/17 00:30 APTT 29.4 Seconds (25.1-36.5) 10/30/17 00:30 - Constitutional Appears: Cachectic, Chronically Ill - Head Exam Head Exam: NORMAL INSPECTION - Neck Exam Additional comments: left side of neck and chest with honey-crusts, erythema Assessment and Plan - Assessment and Plan (Free Text) Plan: Assessment superinfection of left side of neck with bacteria 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
[2017-10-31] MEDS: Morphine 2 mg/ml ISec IVP PRN (19:01)
--- NOTE | 2017-11-01 01:02 | PN ---
DATE: 10/31/2017 This is [facility]'s [facility] [address] visit on the medical floor. For Dr. Smith. SUBJECTIVE: The patient is an 87-year-old male seen lying awake in bed with the son at the bedside reporting that his significant pain and shortness of breath have improved with the patient now started on IV antibiotics as per Dr. Cali, Infectious Disease internet sales consultant, with good effect. There was a superinfection on left side of his neck with a history of radiation dermatitis, superimposed cellulitis growing methicillin-resistant Staphylococcus aureus. The patient also possibly had complications of the skin with irritation from Erbitux as per Dr. Smith's treatment protocol with the patient's kidney function also being compromised at one point, now improved. 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 However, prior to his hospitalization, the patient was tolerating oral sustenance with the patient then reporting that he had increased difficulty swallowing in the past two to three days prior to admission. Recommended sustenance for him would be approximately 7 to 8 cans of Jevity per day. However, the patient can tolerate approximately 4 to 5. We will attempt to at least set a range of approximately 6 cans per day. We will also awaiting a swallowing evaluation for this patient while he continues his IV antibiotics and analgesics for his severe pain. The patient also complains of a foot discomfort with his baggageman; hopefully not on Staph here. We will ask for Dr. Ange Hutson to evaluate him for his foot discomfort. OBJECTIVE/PHYSICAL EXAMINATION: VITAL SIGNS: Temperature 97, pulse 72, respirations 18, and blood pressure 96/50, pulse oximetry of 98%. HEENT: The patient has sunken temples, appears cachectic. NECK: Supple with associated scabbed, crusted lesions which are drying out. HEART: Regular rate. LUNGS: Clear. ABDOMEN: Scaphoid, soft, nontender with a PEG tube viable. EXTREMITIES: No edema. SKIN: Warm and dry, otherwise except as above. NEUROLOGIC: Awake, alert and oriented x3 with minimal decreased strength to industrial insulator. LABORATORY DATA: The patient's labs were done with a white blood cell count of 7.5, hemoglobin of 9.3, hematocrit of 28.0, platelet count of 258,000 with a chem metabolic panel showing a sodium of 130, chloride of 96 with a BUN of 23, creatinine of 0.9 with an INR 1.02. The patient did have an EKG done with an echocardiogram, which was done, which was has not been read yet. His EKG showed normal sinus rhythm, artifact present, TW and L and no change. 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 PLAN: The plan for this patient is to continue his present medical regimen as per internet sales consultant's recommendations including Dr. Casas in Cardiology, Dr. Foreman of Gastroenterology, Dr. Cali of Infectious Disease, and we will ask Dr. Hutson of Podiatry for his foot discomfort to be evaluated, and also Dr. Castro of Ear, Nose and Throat is there for evaluation of his posterior oropharynx. With his nutrition to be continued, with the prognosis for this patient guarded, we will also await a swallowing evaluation so that he might be taking oral sustenance when possible. This is a complex patient with a comprehensive medically necessary and appropriate visit carried out in excess of 35 minutes' [id number] time with the patient and his son. All their questions answered to their satisfaction. Prognosis for this patient is guarded. Gary Zapata MD
[2017-11-01] MEDS: Morphine 2 mg/ml ISec IVP PRN ×3 (01:41→11:51)
--- NOTE | 2017-11-01 01:42 | PN ---
DATE: 10/31/2017 SUBJECTIVE: Patient is seen lying in bed on 3R. He continues to complain of discomfort at the site of his blistering rash on his left shoulder and thorax. CURRENT MEDICATIONS: Include aspirin, Bactroban ointment, hydrochlorothiazide, Lipitor, metoprolol 25 mg b.i.d., Maxipime, Plavix 75 mg daily, potassium, Protonix, Silvadene cream, Zaroxolyn 2.5 mg daily and Zyvox. OBJECTIVE: GENERAL: He is a chronically ill-appearing, very elderly man. VITAL SIGNS: Blood pressure is 100/50 with a pulse of 66, respirations are 16. He is afebrile. HEENT: Temporal wasting noted. CHEST: Bilateral scattered rhonchi. HEART: PMI displaced laterally with systolic murmur at the left sternal border. ABDOMEN: Soft, nontender, normoactive bowel sounds. EXTREMITIES: No edema. SKIN: Reveals extensive blistering rash at the left upper chest. DIAGNOSTIC DATA: Sodium is 130, potassium 3.6, BUN and creatinine 23 and 0.9, white count 7.5, hemoglobin and hematocrit 9.3 and 28.0, platelet count of 258,000. IMPRESSION: 1. Exertional dyspnea likely multifactorial, suspect significant troponin due to underlying lung disease and treatment for his laryngeal carcinoma. 2. Coronary artery disease status post remote bypass surgery and percutaneous coronary intervention, stable at present. 3. Radiation skin trauma. 4. Rest of the problems as noted. RECOMMENDATIONS: Continue analgesic therapy and wound care was advised. An echocardiogram is pending and workup reviewed. Intensified caloric intake was recommended. We will be happy to follow and make further arrangements as appropriate. Greyson Casas MD
[2017-11-01 07:01] LABS: BASO # 0.02 K/mm3 (0.0-2.0); BASO % 0.3 % (0.0-3.0); EOS # 1.6 (0.0-0.7); EOS % 19.6 % (1.5-5.0); GRAN # 4.63 (1.4-6.5); GRAN % 58.2 % (50.0-68.0); HEMOGLOBIN 9.3 g/dL (14.0-18.0); LYMPH # 0.7 (1.2-3.4); LYMPH % 9.2 % (22.0-35.0); MEAN CELL VOLUME 87.1 fl (80.0-105.0); MEAN CORPUSCULAR HEMOGLOBIN 28.5 pg (25.0-35.0); MEAN CORPUSCULAR HGB CONC 32.7 g/dl (31.0-37.0); MEAN PLATELET VOLUME 9.8 fl (7.0-11.0); MONO % 12.7 % (1.0-6.0); RBC 3.26 10^6/uL (3.5-6.1); RED CELL DISTRIBUTION WIDTH 14.3 % (11.5-14.5)
[2017-11-01 07:16] LABS: ALB/GLOB RATIO 0.9 (1.1-1.8); ALBUMIN 2.8 g/dL (3.0-4.8); ALT/SGPT 29 U/L (7-56); AST/SGOT 27 U/L (17-59); BLOOD UREA NITROGEN 22 mg/dL (7-21); CALCIUM 8.7 mg/dL (8.4-10.5); GFR AFRICAN-AMERICAN > 60; GFR NON-AFRICAN AMERICAN > 60
--- NOTE | 2017-11-01 10:40 | CARD ---
APPROVED REPORT EXAM: Two-dimensional and M-mode echocardiogram with Doppler and color Doppler. Other Information Quality : AverageRhythm : INDICATION MONTENEGRO 2D DIMENSIONS Left Atrium (2D)3.7 (1.6-4.0cm)IVSd1.0 (0.7-1.1cm) LVDd4.6 (3.9-5.9cm)PWd0.9 (0.7-1.1cm) LVDs3.0 (2.5-4.0cm)FS (%) 34.2 % LVEF (%)63.0 (>50%) M-Mode DIMENSIONS Aortic Root3.70 (2.2-3.7cm)Aortic Cusp Exc.1.90 (1.5-2.0cm) Aortic Valve AoV Peak Wdhmslzm051.0cm/Julieta P 1/2 [id number] Mitral Valve MV E Peocpxuo62.1cm/sMV A Evneetrh86.7cm/sE/A ratio0.6 TDI Lateral E' Peak V11.50cm/sMedial E' Peak V7.70cm/sE/Lateral E'4.6 E/Medial E'6.9 Pulmonary Valve PV Peak Vosruual17.4cm/sPV Peak Grad.4mmHg Tricuspid Valve TR Peak Pjezapau274gu/sRAP [id number] Peak Gr.18mmHg [id number] LEFT VENTRICLE The left ventricle is normal size. There is normal left ventricular wall thickness. The left ventricular function is normal. The left ventricular ejection fraction is within the normal range. There is normal LV segmental wall motion. RIGHT VENTRICLE The right ventricle is normal size. ATRIA The left atrium size is normal. The right atrium size is normal. The interatrial septum is intact with no evidence for an atrial septal defect. AORTIC VALVE The aortic valve is mildly sclerotic. MITRAL VALVE The mitral valve is mildly thickened but opens well. Mitral regurgitation is mild. TRICUSPID VALVE The tricuspid valve is normal in structure. There is trace to mild tricuspid regurgitation. GREAT VESSELS The aortic root is normal in size. PERICARDIAL EFFUSION There is no pericardial effusion. <Conclusion> The left ventricle is normal size. There is normal left ventricular wall thickness. The left ventricular function is normal. The aortic valve is mildly sclerotic. Aortic sclerosis. Mitral regurgitation is mild. There is trace to mild tricuspid regurgitation.
[2017-11-01] MEDS: Silver Sulfadiazine 1% Cream (25 gm) TP SCH ×2 (11:02→19:15)
[2017-11-01] MEDS: Cefepime 1gm in NS 100ml 1 GM/100 ML BAG IVPB SCH (11:03)
[2017-11-01] MEDS: Potassium Chloride 20 mEq/15 ml LIQ UD PEG SCH ×2 (11:03→19:06)
[2017-11-01] MEDS: metOLazone 2.5 MG TAB PEG SCH (11:48)
[2017-11-01] MEDS: Sodium Chloride 0.9% 1,000 ML IV SCH ×2 (11:50→21:52)
[2017-11-01] MEDS: Linezolid 600 mg in D5W 300 ml 600 MG/300 ML BAG IVPB SCH ×2 (13:33→21:50)
--- NOTE | 2017-11-01 13:51 | CP.PCM.PN ---
<Vadim Brooks - Last Filed: 11/01/17 13:31> Subjective - Date & Time of Evaluation Date of Evaluation: 11/01/17 Time of Evaluation: 07:10 - Subjective Subjective: Heme-onc Progress Note, Vadim Brooks DO, PGY-2 IM This is an 87 yo M with PMH of stage LALO larygneal carcinoma extending into/involving the thyroid/cricoid cartilage (on radiation and Erbitux therapy, s/p PEG tube for feeds), HTN, CAD s/p CABG, radiation dermatitis with MRSA cellulitis, and prior unspecified skin tumors who presented to [facility] with shortness of breath, worsening neck and left shoulder rash , and increased difficulty swallowing x 3 days. Patient seen and examined at bedside. No acute events reported overnight, and patient reports generally feeling better today, although not back to baseline prior to current illness. Rash/Cellulitis does not appear to extended further. Reports improved shortness of breath, malaise, hoarseness, and difficulty swallowing, but still reports relative lack of appetite, and states still getting short of breath with exertion. Denies chest pain, hemoptysis, diarrhea , melena. Objective - Vital Signs/Intake and Output Vital Signs (last 24 hours): Temp Pulse Resp BP Pulse Ox 97.7 F 87 20 115/73 97 11/01/17 08:24 11/01/17 11:03 11/01/17 08:24 11/01/17 11:03 11/01/17 08:24 Intake and Output: 11/01/17 11/01/17 06:59 18:59 Intake Total 240 Output Total 950 Balance -710 - Medications Medications: Current Medications Aspirin (Aspirin Chewable) 81 mg PEG DAILY [facility] Last Admin: 11/01/17 11:02 Dose: 81 mg Atorvastatin Calcium (Lipitor) 10 mg PEG DAILY [facility] Last Admin: 11/01/17 11:02 Dose: 10 mg Clopidogrel Bisulfate (Plavix) 75 mg PEG DAILY [facility] Last Admin: 11/01/17 11:03 Dose: 75 mg Linezolid (Zyvox 600mg/300ml D5w) 600 mg in 300 mls @ 200 mls/hr IVPB Q12 [facility]IA PRN Reason: Protocol Stop: 11/06/17 12:16 Last Admin: 10/31/17 22:08 Dose: 200 mls/hr Cefepime HCl (Maxipime 1gm) 1 gm in 100 mls @ 100 mls/hr IVPB DAILY [facility] PRN Reason: Protocol Last Admin: 11/01/17 11:03 Dose: 100 mls/hr Sodium Chloride (Sodium Chloride 0.9%) 1,000 mls @ 100 mls/hr IV .Q10H [facility] Last Admin: 11/01/17 11:50 Dose: 100 mls/hr Metoprolol Tartrate (Lopressor) 25 mg PEG Q12H [facility] Last Admin: 11/01/17 11:03 Dose: 25 mg Morphine Sulfate (Morphine) 2 mg IVP Q4H PRN PRN Reason: Pain, severe (8-10) Last Admin: 11/01/17 11:51 Dose: 2 mg Mupirocin (Bactroban Ointment) 0 gm TOP BID [facility] Last Admin: 11/01/17 11:47 Dose: 1 appl Non-Formulary Medication (Ultra Coq10) 100 mg PEG MWF [facility] Pantoprazole Sodium (Protonix Inj) 40 mg IVP DAILY [facility] Last Admin: 11/01/17 11:02 Dose: 40 mg Potassium Chloride (Potassium Chloride Oral Soln) 20 meq PEG BID [facility] Last Admin: 11/01/17 11:03 Dose: 20 meq Silver Sulfadiazine (Silvadene 1% 25 Gm) 0 gm TP BID [facility] Last Admin: 11/01/17 11:02 Dose: 25 gm - Labs Labs: 11/01/17 06:20 11/01/17 06:20 PT 11.6 SECONDS (9.4-12.5) 10/30/17 00:30 INR 1.02 (0.93-1.08) 10/30/17 00:30 APTT 29.4 Seconds (25.1-36.5) 10/30/17 00:30 - Additional Findings Additional findings: - Constitutional Appears: Non-toxic, No Acute Distress, Cachectic (very cachetic, can see sternotomy wires from CABG pushing up through skin at sterum), Chronically Ill - Head Exam Head Exam: ATRAUMATIC, NORMAL INSPECTION, NORMOCEPHALIC - Eye Exam Eye Exam: EOMI, Normal appearance. absent: Conjunctival injection, Scleral icterus Pupil Exam: absent: Irregular, Unequal - ENT Exam ENT Exam: Mucous Membranes Dry Additional comments: Hoarseness No petechiae or active bleeding sources identified No exudates or candidiasis appreciated - Neck Exam Neck exam: Positive for: Full Rom (some discomfort when moving head towards left side (rotation and side-bending), but no physical barrier/impairment of ROM ) - Respiratory Exam Respiratory Exam: Clear to Auscultation Bilateral, NORMAL BREATHING PATTERN. absent: Accessory Muscle Use, Rales, Rhonchi, Wheezes - Cardiovascular Exam Cardiovascular Exam: REGULAR RHYTHM, RRR, +S1, +S2. absent: Bradycardia, Tachycardia, Irregular Rhythm, +S4 - GI/Abdominal Exam GI & Abdominal Exam: Normal Bowel Sounds, Soft. absent: Diminished Bowel Sounds , Distended, Firm, Hyperactive Bowel Sounds, Hypoactive Bowel Sounds, Rigid, Tenderness - Extremities Exam Extremities exam: Positive for: pedal pulses present. Negative for: calf tenderness, pedal edema, tenderness Additional comments: mildly waxy-like skin at bilateral LE from extending from feet to ankles distal LE warm to palpation - Neurological Exam Neurological exam: Alert, Oriented x3 Additional comments: following all commands appropriately, moving all extremities spontaneously motor appears grossly intact and equal bilaterally - Psychiatric Exam Psychiatric exam: Normal Affect, Normal Mood - Skin Skin Exam: Dry, Intact, Normal Color, Warm (Except as listed below) Additional comments: Sternotomy wires visualized pushing up skin at sternum, right chest port easily visualized through skin, but neither with breakdown or breakthrough of skin Left sided rash/cellulitis, patchy, extending from left posterior neck to left arm, shoulder, and left superior chest wall involvement. Extensive scattered scabbing overlying, 2 discrete sites of cracked skin actively oozing red blood noted (superior middle aspect of left shoulder, and a separate patch directly inferior to it), warm to touch compared to surrounding skin but not acutely tender, no sloughing of skin on palpation; no increase in cellulitic area Fresh coating of antibacterial ointment overlying region of cellulits Assessment and Plan - Assessment and Plan (Free Text) Assessment: This is an 87 yo M with PMH of stage LALO larygneal carcinoma extending into/involving the thyroid/cricoid cartilage (on radiation and Erbitux therapy, s/p PEG tube for feeds), HTN, CAD s/p CABG, radiation dermatitis with MRSA cellulitis, and prior unspecified skin tumors who presented to [facility] with shortness of breath, worsening neck and left shoulder rash , and increased difficulty swallowing x 3 days. 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 (s/p radiation and Erbitux therapy) HTN CAD s/p CABG Expanding rash along left neck/shoulder/arm, r/o cellulitis vs drug reaction - stable Shortness of breath - improved Increased difficulty swallowing - improved Hyponatremia - new -ID following, appreciate their recs; pt currently on Linezolid and Bactro -SOB etiology unclear, EKG on admit notable for NSR at 94 with sinus arrhythmia and normal intervals, CXR on admit suggestive of COPD but read as no active disease; currently improving, -Continue ASA and Plavix given hx of CAD s/p CABG, continue Lipitor -continue metolazone, Metoprolol, and HCTZ (cannot use Metoprolol-HCTZ combo pill via PEG as per pharmacy, switched to constituent meds) -Continue Protonix for GI ppx -Chart Calculator consulted for tube feeding until swallow study passed, would rec 7-8 cans of Jevity per day, but patient reports only able to tolerate 4-5 per day -Cardio following, appreciate all recs: shortness of breath and elevated trop likely 2/2 underlying lung disease, pending Echo results -Echo obtained, notable for EF 63%, mild aortic sclerosis, otherwise unremarkable -Swallow study passed, advanced to finely chopped w nectar thick liq as per Speech Therapist -ENT and GI consulted for difficulty swallowing, appreciate their recs -Hyponatremic to 127 today, was 130-135 on/since admission, Nephro consulted, appreciate their recs -pending urine osms and TSH as per Nephro Patient reviewed and discussed at length with attending, Dr. Smith. <Mustapha Smith P - Last Filed: 11/03/17 19:27> Objective - Vital Signs/Intake and Output Vital Signs (last 24 hours): Temp Pulse Resp BP Pulse Ox 98.2 F 89 20 118/59 L 97 11/02/17 08:35 11/02/17 10:00 11/02/17 08:35 11/02/17 10:00 11/02/17 08:35 - Medications Medications: Current Medications Famciclovir (Famvir) 500 mg PO Q12 SIA PRN Reason: Protocol - Labs Labs: 11/02/17 05:00 11/02/17 05:49 PT 11.6 SECONDS (9.4-12.5) 10/30/17 00:30 INR 1.02 (0.93-1.08) 10/30/17 00:30 APTT 29.4 Seconds (25.1-36.5) 10/30/17 00:30 Attending/Attestation - Attestation I have personally seen and examined this patient.: Yes I have fully participated in the care of the patient.: Yes I have reviewed all pertinent clinical information, including history, physical exam and plan: Yes
[2017-11-01 14:41] LABS: T4 6.2 ug/dL (5.5-11.0)
[2017-11-01] MEDS ORDERED: Morphine 2 mg/ml ISec IVP PRN (15:27)
[2017-11-01] MEDS ORDERED: Morphine 4 mg/ml ISec IVP PRN (15:33)
[2017-11-01] MEDS ORDERED: Lidocaine 2% Jelly (Uro-Jet) TOP PRN (16:19)
--- NOTE | 2017-11-01 16:19 | CP.PCM.PN ---
Subjective - Date & Time of Evaluation Date of Evaluation: 11/01/17 Time of Evaluation: 10:35 - Subjective Subjective: Skin lesions are slowly getting better, no fevers. Objective - Vital Signs/Intake and Output Vital Signs (last 24 hours): Temp Pulse Resp BP Pulse Ox 97.7 F 87 20 115/73 97 11/01/17 08:24 11/01/17 08:24 11/01/17 08:24 11/01/17 08:24 11/01/17 08:24 Intake and Output: 11/01/17 11/01/17 06:59 18:59 Intake Total 240 Output Total 950 Balance -710 - Medications Medications: Current Medications Aspirin (Aspirin Chewable) 81 mg PEG DAILY [facility] Last Admin: 10/31/17 10:34 Dose: 81 mg Atorvastatin Calcium (Lipitor) 10 mg PEG DAILY [facility] Last Admin: 10/31/17 10:33 Dose: 10 mg Clopidogrel Bisulfate (Plavix) 75 mg PEG DAILY [facility] Last Admin: 10/31/17 10:40 Dose: 75 mg Hydrochlorothiazide (Hydrodiuril) 12.5 mg PEG DAILY [facility] Last Admin: 10/31/17 10:33 Dose: 12.5 mg Linezolid (Zyvox 600mg/300ml D5w) 600 mg in 300 mls @ 200 mls/hr IVPB Q12 [facility] PRN Reason: Protocol Stop: 11/06/17 12:16 Last Admin: 10/31/17 22:08 Dose: 200 mls/hr Cefepime HCl (Maxipime 1gm) 1 gm in 100 mls @ 100 mls/hr IVPB DAILY [facility] PRN Reason: Protocol Metolazone (Zaroxolyn) 2.5 mg PEG DAILY [facility] Last Admin: 10/31/17 10:33 Dose: 2.5 mg Metoprolol Tartrate (Lopressor) 25 mg PEG Q12H [facility] Last Admin: 10/31/17 22:38 Dose: 25 mg Morphine Sulfate (Morphine) 2 mg IVP Q4H PRN PRN Reason: Pain, severe (8-10) Last Admin: 11/01/17 08:19 Dose: 2 mg Mupirocin (Bactroban Ointment) 0 gm TOP BID [facility] Last Admin: 10/31/17 18:31 Dose: 1 appl Non-Formulary Medication (Ultra Coq10) 100 mg PEG MWF [facility] Pantoprazole Sodium (Protonix Inj) 40 mg IVP DAILY [facility] Last Admin: 10/31/17 10:33 Dose: 40 mg Potassium Chloride (Potassium Chloride Oral Soln) 20 meq PEG BID [facility] Last Admin: 10/31/17 18:40 Dose: 20 meq Silver Sulfadiazine (Silvadene 1% 25 Gm) 0 gm TP BID [facility] Last Admin: 10/31/17 18:40 Dose: 1 gm - Labs Labs: 11/01/17 06:20 11/01/17 06:20 PT 11.6 SECONDS (9.4-12.5) 10/30/17 00:30 INR 1.02 (0.93-1.08) 10/30/17 00:30 APTT 29.4 Seconds (25.1-36.5) 10/30/17 00:30 - Constitutional Appears: Cachectic, Chronically Ill - Head Exam Head Exam: NORMAL INSPECTION - ENT Exam ENT Exam: Mucous Membranes Moist - Neck Exam Neck Exam: absent: Meningismus Additional comments: left side of neck and chest with necrotic lesions, decreasing erythema - Respiratory Exam Respiratory Exam: Decreased Breath Sounds - Cardiovascular Exam Cardiovascular Exam: +S1, +S2 - GI/Abdominal Exam GI & Abdominal Exam: Soft. 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
[2017-11-01] MEDS: Morphine 4 mg/ml ISec IVP PRN ×3 (16:28→22:36)
[2017-11-01] MEDS ORDERED: Lidocaine 2% Jelly (30 ml) TOP PRN (16:28)
--- NOTE | 2017-11-01 16:36 | CP.PCM.CON ---
History of Present Illness - History of Present Illness History of Present Illness: Podiatry Consult Note- Dr. Ng 87 y.o male seen and evaluated at bedside. Patient is seen resting comfortably in NAD and awake. Patient reports pain to the toes bilaterally. He rates the pain 4/10 and describes the pain as an discomfort, worse with walking. Patient denies nausea, fever, chest pain, chills or fever. Patient reports the same shortness of breath. Patient also reports a different pain to the upper left shoulder. Reports that pain being more intense, rating the pain 8/10. Patient reports that his insurance checker is Dr. Virgil Ng whom he sees for continued evaluation of his bilaterally foot. He reports he has not seen him in 6 months due to his hospitalization. Past Patient History - Infectious Disease Hx of Infectious Diseases: None - Past Social History Smoking Status: Former Smoker - CARDIAC Hx Cardiac Disorders: Yes Hx Hypertension: Yes - PULMONARY Hx Chronic Obstructive Pulmonary Disease (COPD): Yes - NEUROLOGICAL Hx Neurological Disorder: No - HEENT Hx HEENT Problems: Yes Other/Comment: THROAT CA - RENAL Hx Chronic Kidney Disease: No - ENDOCRINE/METABOLIC Hx Endocrine Disorders: No - HEMATOLOGICAL/ONCOLOGICAL Hx Cancer: Yes (throat) - INTEGUMENTARY Hx Dermatological Problems: No - MUSCULOSKELETAL/RHEUMATOLOGICAL Hx Falls: Yes - GASTROINTESTINAL Other/Comment: peg tube placement - GENITOURINARY/GYNECOLOGICAL Hx Reproductive Disorders: No - PSYCHIATRIC Hx Psychophysiologic Disorder: No Hx Substance Use: No - SURGICAL HISTORY Other/Comment: G TUBE, PORT R UPPER CHEST. - ANESTHESIA Hx Anesthesia: Yes Meds Allergies/Adverse Reactions: Allergies Allergy/AdvReac Type Severity Reaction Status Date / Time No Known Allergies Allergy Verified 10/30/17 02:46 - Medications Medications: Current Medications Aspirin (Aspirin Chewable) 81 mg PEG DAILY [facility] Last Admin: 11/01/17 11:02 Dose: 81 mg Atorvastatin Calcium (Lipitor) 10 mg PEG DAILY [facility] Last Admin: 11/01/17 11:02 Dose: 10 mg Clopidogrel Bisulfate (Plavix) 75 mg PEG DAILY [facility] Last Admin: 11/01/17 11:03 Dose: 75 mg Linezolid (Zyvox 600mg/300ml D5w) 600 mg in 300 mls @ 200 mls/hr IVPB Q12 [facility]IA PRN Reason: Protocol Stop: 11/06/17 12:16 Last Admin: 11/01/17 13:33 Dose: 200 mls/hr Cefepime HCl (Maxipime 1gm) 1 gm in 100 mls @ 100 mls/hr IVPB DAILY [facility] PRN Reason: Protocol Last Admin: 11/01/17 11:03 Dose: 100 mls/hr Sodium Chloride (Sodium Chloride 0.9%) 1,000 mls @ 100 mls/hr IV .Q10H [facility] Last Admin: 11/01/17 11:50 Dose: 100 mls/hr Lidocaine HCl (Xylocaine 2%) 0 ea TOP TID PRN PRN Reason: Pain, Mild (1-3) Metoprolol Tartrate (Lopressor) 25 mg PEG Q12H [facility] Last Admin: 11/01/17 11:03 Dose: 25 mg Morphine Sulfate (Morphine) 3 mg IVP Q4H PRN PRN Reason: Pain, severe (8-10) Last Admin: 11/01/17 16:28 Dose: 3 mg Mupirocin (Bactroban Ointment) 0 gm TOP BID [facility] Last Admin: 11/01/17 11:47 Dose: 1 appl Non-Formulary Medication (Ultra Coq10) 100 mg PEG MWF [facility] Pantoprazole Sodium (Protonix Inj) 40 mg IVP DAILY [facility] Last Admin: 11/01/17 11:02 Dose: 40 mg Potassium Chloride (Potassium Chloride Oral Soln) 20 meq PEG BID [facility] Last Admin: 11/01/17 11:03 Dose: 20 meq Silver Sulfadiazine (Silvadene 1% 25 Gm) 0 gm TP BID [facility] Last Admin: 11/01/17 11:02 Dose: 25 gm Physical Exam - Constitutional Appears: Well, Non-toxic, No Acute Distress - Extremities Exam Extremities exam: Negative for: calf tenderness Additional comments: DP and PT weakly palpable, temperature gradient WNL, CFT delayed to the digits, no edema noted to the LE Pain with palpation to the toes No open lesions or ulceration, no clinical signs of infection to the LE, hyperkeratotic scaly circular diffuse lesions noted to the plantar aspect of the bilateral foot, xerosis to the LE bilateral, enlongated, hyperkeratotic nails x10 with incurvatum noted to left 3rd and right 3rd digit Gross and protective sensation intact - Neurological Exam Neurological exam: Alert, Oriented x3 Results - Vital Signs Recent Vital Signs: Last Vital Signs Temp 97.7 F 11/01/17 08:24 Pulse 87 11/01/17 11:03 Resp 20 11/01/17 08:24 BP 115/73 11/01/17 11:03 Pulse Ox 97 11/01/17 08:24 - Labs Result Diagrams: 11/01/17 06:20 11/01/17 06:20 Labs: Laboratory Results - last 24 hr 11/01/17 11/01/17 11/01/17 06:20 06:20 13:00 WBC 8.0 RBC 3.26 L Hgb 9.3 L Hct 28.4 L MCV 87.1 MCH 28.5 MCHC 32.7 RDW 14.3 Plt Count 284 MPV 9.8 Gran % 58.2 Lymph % (Auto) 9.2 L Benzie % (Auto) 12.7 H Eos % (Auto) 19.6 H Baso % (Auto) 0.3 Gran # 4.63 Lymph # (Auto) 0.7 L Benzie # (Auto) 1.0 H Eos # (Auto) 1.6 H Baso # (Auto) 0.02 Sodium 127 L Potassium 4.0 Chloride 92 L Carbon Dioxide 30 Anion Gap 9 L BUN 22 H Creatinine 0.9 Est GFR ( Amer) > 60 Est GFR (Non-Af Amer) > 60 Random Glucose 94 Calcium 8.7 Phosphorus 3.7 Magnesium 1.9 Total Bilirubin 1.0 AST 27 ALT 29 Alkaline Phosphatase 59 Total Protein 5.9 Albumin 2.8 L Globulin 3.1 Albumin/Globulin Ratio 0.9 L Thyroxine (T4) TSH 3rd Generation Ur Random Sodium 70 11/01/17 13:30 WBC RBC Hgb Hct MCV MCH MCHC RDW Plt Count MPV Gran % Lymph % (Auto) Benzie % (Auto) Eos % (Auto) Baso % (Auto) Gran # Lymph # (Auto) Benzie # (Auto) Eos # (Auto) Baso # (Auto) Sodium Potassium Chloride Carbon Dioxide Anion Gap BUN Creatinine Est GFR ( Amer) Est GFR (Non-Af Amer) Random Glucose Calcium Phosphorus Magnesium Total Bilirubin AST ALT Alkaline Phosphatase Total Protein Albumin Globulin Albumin/Globulin Ratio Thyroxine (T4) 6.2 TSH 3rd Generation 13.60 H Ur Random Sodium Assessment & Plan - Assessment and Plan (Free Text) Assessment: 87 y.o male seen and evaluated at bedside for painful foot secondary to elongated nails x10 Plan: Patient examined and evaluated Discussed plan in detail with attending Dr. Ng Chart, labs, vitals reviewed Elongated nails were sharply debrided using a nail nipper to normal length and thickness x10 without incident. Patient tolerated the procedure well Thank you for allowing us to take part of patient's care. Upon discharge follow up with Dr. Ng in 2 weeks. Please call for an appointment Podiatry will sign off, thank you
--- NOTE | 2017-11-01 18:15 | CP.PCM.PN ---
Subjective - Date & Time of Evaluation Date of Evaluation: 11/01/17 Time of Evaluation: 11:15 - Subjective Subjective: Seen and examined at the bedside earlier today, chart review. Patient awake and alert started finely chopped diet this am, denies any symptoms of dysphagia , reports that this is better, but poor appetite. He had swallow evaluation yesterday. Patient reported having formed BM denies nausea, vomiting, or abdominal pain. No acute overnight events reported. Objective - Vital Signs/Intake and Output Vital Signs (last 24 hours): Temp Pulse Resp BP Pulse Ox 97.7 F 87 20 115/73 97 11/01/17 08:24 11/01/17 11:03 11/01/17 08:24 11/01/17 11:03 11/01/17 08:24 Intake and Output: 11/01/17 11/01/17 06:59 18:59 Intake Total 240 1200 Output Total 950 200 Balance -710 1000 - Medications Medications: Current Medications Aspirin (Aspirin Chewable) 81 mg PEG DAILY [facility] Last Admin: 11/01/17 11:02 Dose: 81 mg Atorvastatin Calcium (Lipitor) 10 mg PEG DAILY [facility] Last Admin: 11/01/17 11:02 Dose: 10 mg Clopidogrel Bisulfate (Plavix) 75 mg PEG DAILY [facility] Last Admin: 11/01/17 11:03 Dose: 75 mg Linezolid (Zyvox 600mg/300ml D5w) 600 mg in 300 mls @ 200 mls/hr IVPB Q12 [facility] PRN Reason: Protocol Stop: 11/06/17 12:16 Last Admin: 11/01/17 13:33 Dose: 200 mls/hr Cefepime HCl (Maxipime 1gm) 1 gm in 100 mls @ 100 mls/hr IVPB DAILY [facility] PRN Reason: Protocol Last Admin: 11/01/17 11:03 Dose: 100 mls/hr Sodium Chloride (Sodium Chloride 0.9%) 1,000 mls @ 100 mls/hr IV .Q10H [facility] Last Admin: 11/01/17 11:50 Dose: 100 mls/hr Lidocaine HCl (Xylocaine 2%) 0 ea TOP TID PRN PRN Reason: Pain, Mild (1-3) Metoprolol Tartrate (Lopressor) 25 mg PEG Q12H [facility] Last Admin: 11/01/17 11:03 Dose: 25 mg Morphine Sulfate (Morphine) 3 mg IVP Q4H PRN PRN Reason: Pain, severe (8-10) Last Admin: 11/01/17 16:28 Dose: 3 mg Mupirocin (Bactroban Ointment) 0 gm TOP BID [facility] Last Admin: 11/01/17 11:47 Dose: 1 appl Non-Formulary Medication (Ultra Coq10) 100 mg PEG MWF [facility] Pantoprazole Sodium (Protonix Inj) 40 mg IVP DAILY [facility] Last Admin: 11/01/17 11:02 Dose: 40 mg Potassium Chloride (Potassium Chloride Oral Soln) 20 meq PEG BID [facility] Last Admin: 11/01/17 11:03 Dose: 20 meq Silver Sulfadiazine (Silvadene 1% 25 Gm) 0 gm TP BID [facility] Last Admin: 11/01/17 11:02 Dose: 25 gm - Labs Labs: 11/01/17 06:20 11/01/17 06:20 PT 11.6 SECONDS (9.4-12.5) 10/30/17 00:30 INR 1.02 (0.93-1.08) 10/30/17 00:30 APTT 29.4 Seconds (25.1-36.5) 10/30/17 00:30 - Constitutional Appears: No Acute Distress, Cachectic - Head Exam Head Exam: NORMOCEPHALIC - Eye Exam Eye Exam: Normal appearance. absent: Scleral icterus - ENT Exam ENT Exam: Mucous Membranes Moist - Neck Exam Additional comments: extensive rash/? cellulitits left side neck to shoulder/arm , dry w/ scabs - Respiratory Exam Respiratory Exam: NORMAL BREATHING PATTERN. absent: Respiratory Distress - Cardiovascular Exam Cardiovascular Exam: +S1, +S2 - GI/Abdominal Exam GI & Abdominal Exam: Soft, Normal Bowel Sounds. absent: Guarding, Tenderness, Organomegaly, Rebound Additional comments: (+) PEG, insertion site dry and intact - Extremities Exam Extremities Exam: absent: Calf Tenderness - Neurological Exam Neurological Exam: Alert, Awake, Oriented x3 - Skin Skin Exam: Dry, Warm Additional comments: see notes on neck Assessment and Plan - Assessment and Plan (Free Text) Assessment: Assessment: Laryngeal cancer, on radiation and chemotherapy Left side neck /shoulder/arm with extensive rash, history of cellulitis Dysphagia secondary to above status post PEG Improved shortness of breath CAD Hypertension Plan: on finely chopped diet aspiration precautions On aspirin and Plavix Continue GI prophylaxis On IV antibiotics DVT prophylaxis, SCD As per oncology Seen and discussed with Dr. Foreman.
--- NOTE | 2017-11-01 19:54 | CON ---
DATE: 11/01/2017 The patient admitted for Dr. Gary Zapata and Dr. Smith. REFERRING MD: Gary Zapata M.D. REASON FOR CONSULTATION: Evaluation of the patient known to me who presents with hyponatremia in the setting of diuretic therapy on PEG tube feedings for stage IV laryngeal cancer. HISTORY OF PRESENT ILLNESS: The patient is an 87-year-old white male with a long history of cigarette smoking, stage IV laryngeal cancer, on radiation therapy and Erbitux. The patient has had difficulty swallowing and had been on PEG tube feedings. 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 History of COPD. Past history of acute renal failure thought to be secondary to vancomycin nephrotoxicity. History of hyperlipidemia, on statin therapy. The patient was admitted with increasing shortness of breath and possible infection of the left side of his neck and left upper chest wall in the area of previous radiation dermatitis. Patient was noted on admission to have anemia likely secondary to his underlying malignancy. His BUN and creatinine were acceptable. BUN was 23 with a creatinine of 0.9. On admission, his sodium was 135. He does remain on diuretic therapy though he has no edema at present. His sodium level has dropped from 135 to 113 and is currently 127. We are asked to evaluate the patient for his worsening hyponatremia. The patient currently is not receiving any extra fluid hydration through his PEG tube. He is attempting to eat and swallow. He is restricting his oral fluids. However, he does remain on diuretic therapy. MEDICATIONS AT HOME: Include that of cephalexin, Ecotrin, Coenzyme Q10, Silvadene, Protonix, metoprolol with hydrochlorothiazide, Plavix, Pravachol, and Zaroxolyn. ALLERGIES: NO KNOWN ALLERGIES TO MEDICATIONS. CURRENT MEDICATIONS: In the hospital include that of aspirin, mupirocin, hydrochlorothiazide, Lipitor, Lopressor, Maxipime, morphine p.r.n., Plavix, oral potassium, Protonix, Silvadene cream, normal saline 100 mL an hour starting today, Coenzyme Q10, Zaroxolyn and Zyvox. SOCIAL HISTORY: Past history of cigarette smoking. The patient smokes three packs per day, but quit 40 years ago. No history of alcohol use in the last 7 years. FAMILY HISTORY: Father and mother of old age in their 80s. REVIEW OF SYSTEMS: 10+ systems reviewed with the patient. All negative except what is noted above. GENERAL: The patient states since discharged from the hospital appetite has been fair. Weight has been stable, but he had lost significant weight prior to that point in time. ENT: Denies any hearing or visual problems. PULMONARY: Presently, no shortness of breath. History of COPD, history of emphysema and bronchitis. No history of asthma. No history of recent pneumonia. CARDIAC: History of ASHD with no ongoing cardiac issues. No chest pains. No palpitations. GI: No nausea, vomiting, diarrhea. No abdominal pain, no constipation. : No history of chronic kidney disease, history of acute renal failure. Last admission for vancomycin nephrotoxicity. ENDOCRINE: No history of diabetes. MUSCULOSKELETAL: No complaints. NEUROLOGIC: No past history of CVA, TIA, seizures or syncope. HEM/ONC: History of anemia secondary to malignancy. Oncology history of stage IV laryngeal cancer. PSYCHIATRIC: History is negative. PAST MEDICAL HISTORY: Significant for stage IV laryngeal cancer on outpatient radiation therapy and Erbitux, history of a PEG tube placement for feedings. Hypertension. ASHD status post CABG. Radiation dermatitis with MRSA cellulitis. History of COPD. Status post acute renal failure secondary to vancomycin nephrotoxicity. History of hyperlipidemia on statin and diet therapy. History of anemia secondary to malignancy. PHYSICAL EXAMINATION: GENERAL: The patient is currently seen on 3R. He is sitting up in bed. He appears to be comfortable. IV fluids have been started normal saline 100 mL an hour. VITAL SIGNS: Blood pressure 115/73, pulse 87, temperature 97.7, respiratory rate 20 with oxygen saturation of 97%. HEENT: Shows him to be normocephalic, atraumatic. Conjunctivae are pale. Sclerae are nonicteric. Pupils are equal, reactive to light and accommodation. Extraocular muscles are intact. Posterior pharynx appears to be normal. NECK: Positive left side of his neck radiation changes. Extending down into the left upper anterior chest wall with areas of hyperpigmentation and perhaps superinfection. No neck vein distention. No thyromegaly. No lymphadenopathy and no bruits. CHEST: Clear to auscultation and percussion. No rales, rhonchi or wheezing. CARDIOVASCULAR: Shows a regular rate and rhythm without murmurs, rubs or gallops. ABDOMEN: Soft. Bowel sounds normal. No rebound, guarding or masses. Positive PEG tube. BACK: No CVAT. No spinal tenderness. EXTREMITIES: Show no lower extremity cyanosis, clubbing or edema. Distal lower extremity pulses are 1 to 2+ bilateral. NEUROLOGIC: Shows him to be alert and oriented x3 with no gross focal motor or sensory deficits noted. LABORATORY DATA AND IMAGING: Admitting chest x-ray shows COPD, pleural and parenchymal scarring and scarring at the bases. No acute or active disease. CBC: White blood cell count 8.0, hemoglobin down to 9.3, platelet count of 284,000. Coags are normal. Chemistry shows sodium which has dropped from 135 to 127. Potassium was 3.4 on admission is currently 4.0. CO2 level is 30. BUN is 22, stable with a creatinine of 0.9. This is his baseline. Glucose 94. Calcium, phosphorus, magnesium are all normal. Liver enzymes are normal. Albumin is low at 2.8. No urines have been sent. Microbiology: Blood cultures are negative at 24 hours. Cultures from the dermatitis of the left upper chest wall, left shoulder area are pending. ASSESSMENT: 1. Hyponatremia. This is in the setting of diuretic therapy. The patient is both on hydrochlorothiazide and Zaroxolyn. He states he had been on these medications in the outpatient setting for lower extremity edema. Presently, he is edema-free and his blood pressure is low normal. I would discontinue all diuretic therapy. He had been using percutaneous endoscopic gastrostomy tube feedings in the outpatient setting, perhaps he was flushing with too much water. This might also be contributing to the hyponatremia. Alternatively, the patient might have syndrome of inappropriate antidiuretic hormone secondary to his history of malignancy. I will check urine sodium, urine osmolality and serum uric acid level. I agree with decision to start the patient on normal saline, which will likely bring his sodium back into the normal range. 2. No history of chronic kidney disease. The patient had acute renal failure. Last admission in 08/2017 secondary to vancomycin nephrotoxicity, that medication should be avoided. 3. Recurrent dermatitis with superinfection of the left neck and left upper chest wall area. The patient is on antibiotic therapy and had been seen by Infectious Disease. 4. History of stage IV laryngeal cancer on radiation therapy on Erbitux. The patient is being followed by radiation oncology and being followed by Oncology. 5. History of chronic obstructive pulmonary disease secondary to long history of cigarette smoking. 6. History of hyperlipidemia, on statin therapy and diet therapy. 7. History of atherosclerotic heart disease, currently stable status post coronary artery bypass graft. The patient being followed by Cardiology. 8. History of anemia secondary to his malignancy. PLAN: 1. We will obtain a urine sodium, urine osmolality and uric acid level. 2. We will obtain a T4, TSH level. 3. We will obtain a.m. cortisol level. 4. I have asked the patient to voluntarily decrease his oral fluid intake. I will put him on a 1500 mL fluid restriction. 5. Should the patient go back to PEG tube feedings, we need to be careful not to push too much fluid for the PEG tube flushing. 6. No reason right now to continue diuretic therapy, so this will be discontinued. 7. Continue to monitor accurate Is and Os and daily labs. 8. Case discussed with staff on 3R. Thank you for letting me partake and share in the care of your patient. Camilo Trammell MD
--- NOTE | 2017-11-01 20:06 | CT ---
EXAM: CT Neck Without Intravenous Contrast EXAM DATE/TIME: 11/01/2017 4:12 PM CLINICAL HISTORY: 87 years old, male; Pain; Neck pain; Additional info: Abrupt onset worsening neck pain TECHNIQUE: Axial computed tomography images of the neck without intravenous contrast. All CT scans at this facility use one or more dose reduction techniques, viz.: automated exposure control; ma/kV adjustment per patient size (including targeted exams where dose is matched to indication; i.e. head); or iterative reconstruction technique. Coronal and sagittal reformatted images were created and reviewed. COMPARISON: Prior CT neck of 2017-08-27 06:52 FINDINGS: LIMITATIONS: Streak artifact from metallic dental hardware. NASOPHARYNX: No acute abnormality of the nasopharyngeal/adenoidal tonsils identified. OROPHARYNX: No acute abnormality of the palatine tonsils identified. No evidence of peritonsillar abscess. No acute abnormality of the tongue base identified. HYPOPHARYNX: No acute abnormality of the pyriform sinuses visualized. LARYNX: Best seen on image 36 of series 601, there is stable appearance of thickening and superior retraction of the left epiglottis and aryepiglottic fold, with no evidence of an enlarging mass. No acute abnormality of the vocal cords identified. TRACHEA: Visualized portions of the trachea appear patent. identified. RETROPHARYNGEAL SPACE: No evidence of prevertebral/retropharyngeal fluid or fluid collection. SUBMANDIBULAR/PAROTID GLANDS: No acute abnormality of the parotid or submandibular glands identified. THYROID: No acute abnormality of the thyroid gland identified. BONES/JOINTS: Bony structures appear demineralized. No acute fractures or other acute bony abnormality visualized. SOFT TISSUES: No findings to suggest significant cellulitis of the soft tissues. No evidence of focal soft tissue fluid collection/abscess. VASCULATURE: Right internal jugular vein is again not seen. Extensive atherosclerotic calcification. No acute abnormality of the major neck vessels seen. LYMPH NODES: No evidence of diffuse pathologic lymphadenopathy. TUBES, LINES AND DEVICES: Right central venous catheter in place. IMPRESSION: - No evidence of significant acute process on this unenhanced exam. - Stable findings compared to a 08/27/2017 CT neck. - Thickening and superior retraction of the left epiglottis and aryepiglottic fold, with no evidence of an enlarging mass. This could represent chronic post operative or post radiation change, however, if there is any clinical concern for recurrent or residual tumor, consider further nonemergent workup. - See above for remaining findings.
--- NOTE | 2017-11-01 20:17 | CT ---
EXAM: CT Left Upper Extremity Without Intravenous Contrast, Shoulder EXAM DATE/TIME: 11/01/2017 4:17 PM CLINICAL HISTORY: 87 years old, male; Pain; Shoulder; Left; Prior surgery; Surgery type: Lt shoulder replacement; Additional info: Acute onset severe shoulder pain, HX of replacement TECHNIQUE: Axial computed tomography images of the left shoulder without intravenous contrast. All CT scans at this facility use one or more dose reduction techniques, viz.: automated exposure control; ma/kV adjustment per patient size (including targeted exams where dose is matched to indication; i.e. head); or iterative reconstruction technique. Coronal and sagittal reformatted images were created and reviewed. COMPARISON: No relevant prior studies available. FINDINGS: LIMITATIONS: Extensive artifact from an arthroplasty device in the left shoulder. BONES/JOINTS: Arthroplasty device in place. The glenoid and humeral components of this device appear grossly intact and normally situated. Chronic-appearing deformity of the acromion process, which could be secondary to a remote injury. No acute fractures are seen, allowing for streak artifact. No evidence of acute dislocation. No evidence of lytic, destructive bony changes or aggressive periosteal reaction to suggest osteomyelitis. SOFT TISSUES: No evidence of a large soft tissue hematoma, allowing for streak artifact.. No evidence of soft tissue gas. IMPRESSION: - Limited exam due to extensive artifact from an arthroplasty device. - No definite acute bony abnormality identified. - See above for remaining findings.
--- NOTE | 2017-11-01 20:35 | CT ---
EXAM: CT Chest Without Intravenous Contrast EXAM DATE/TIME: 11/01/2017 4:18 PM CLINICAL HISTORY: 87 years old, male; Pain; Chest pain; Additional info: Cp TECHNIQUE: Axial computed tomography images of the chest without intravenous contrast. All CT scans at this facility use one or more dose reduction techniques, viz.: automated exposure control; ma/kV adjustment per patient size (including targeted exams where dose is matched to indication; i.e. head); or iterative reconstruction technique. Coronal and sagittal reformatted images were created and reviewed. COMPARISON: Prior chest radiographs of 2017-10-29 FINDINGS: LIMITATIONS: Streak artifact from an arthroplasty device in the left shoulder. LUNGS: Extensive scarring and calcifications in the lung apices bilaterally. Dense consolidation associated with bronchiectatic and microcystic changes in the right lung apex and right upper lobe anteriorly. This is subpleural in location, and has an appearance suspicious for postradiation fibrotic changes. Small amount of dense consolidation in the right lung base posteriorly, abutting a very small right pleural effusion, which could represent atelectasis or a minimal infiltrate/pneumonia. Mild, diffuse bronchiectatic changes. No evidence of diffuse pulmonary vascular congestion. PLEURAL SPACE: Very small right pleural effusion No pneumothorax is seen. HEART: Sternotomy wires and multiple mediastinal surgical clips noted, most likely from prior CABG. Suspect pericardial calcifications, a finding which can be seen with chronic pericarditis. No evidence of significant pericardial effusion. BONES/JOINTS: Arthroplasty device in the left shoulder, causing significant streak artifact. 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 No acute fractures or other acute bony abnormality visualized. SOFT TISSUES: No acute abnormality of the visualized soft tissues is seen. VASCULATURE: Marked enlargement of the main pulmonary artery segment, which measures 6 cm in transverse dimensions (normal less than 3 cm), highly suspicious for pulmonary hypertension. There is also calcification of the main pulmonary artery segment. Suspect a metallic stent in the left subclavian artery. Exam is nondiagnostic for pulmonary emboli and aortic dissection, secondary to unenhanced technique. No evidence of thoracic aortic aneurysm. LYMPH NODES: No evidence of diffuse lymphadenopathy. TUBES, LINES AND DEVICES: Right Mediport catheter in place, which terminates in the upper right atrium. IMPRESSION: - Very small right pleural effusion, with adjacent atelectasis or minimal pneumonia in the right lung base. - Otherwise, no evidence of significant acute process. - Marked enlargement of the main pulmonary artery segment, highly suspicious for pulmonary hypertension. 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 - Scarring and calcifications of the lung apices bilaterally. - See above for remaining findings.
[2017-11-02] MEDS ORDERED: Morphine 4 mg/ml ISec IVP PRN (01:46)
[2017-11-02] MEDS ORDERED: HYDROmorphone 1 mg/ml ISec IVP STA (02:17)
[2017-11-02 06:26] LABS: HEMOGLOBIN 8.8 g/dL (14.0-18.0); MEAN CORPUSCULAR HEMOGLOBIN 28.6 pg (25.0-35.0); MEAN CORPUSCULAR HGB CONC 32.8 g/dl (31.0-37.0); MEAN PLATELET VOLUME 9.6 fl (7.0-11.0); RBC 3.08 10^6/uL (3.5-6.1); WHITE BLOOD COUNT 11.9 10^3/ul (4.5-11.0)
[2017-11-02] MEDS: Sodium Chloride 0.9% 1,000 ML IV SCH (06:39)
[2017-11-02 06:57] LABS: ALB/GLOB RATIO 0.9 (1.1-1.8); ALBUMIN 2.8 g/dL (3.0-4.8); ALT/SGPT 27 U/L (7-56); AST/SGOT 35 U/L (17-59); BLOOD UREA NITROGEN 21 mg/dL (7-21); CALCIUM 8.6 mg/dL (8.4-10.5); GFR AFRICAN-AMERICAN > 60; GFR NON-AFRICAN AMERICAN > 60; URIC ACID 4.2 mg/dL (3.5-8.5)
[2017-11-02] MEDS: HYDROmorphone 1 mg/ml ISec IVP PRN ×2 (08:23→13:08)
[2017-11-02 08:35] VITALS: PULSE 89; RESP 20; TEMP 98.2; O2SAT 97
[2017-11-02] MEDS: Potassium Chloride 20 mEq/15 ml LIQ UD PEG SCH (09:56)
[2017-11-02] MEDS: Cefepime 1gm in NS 100ml 1 GM/100 ML BAG IVPB SCH (09:56)
[2017-11-02] MEDS: Silver Sulfadiazine 1% Cream (25 gm) TP SCH (09:57)
[2017-11-02] MEDS: Linezolid 600 mg in D5W 300 ml 600 MG/300 ML BAG IVPB SCH (09:58)
[2017-11-02 10:06] VITALS: BP 118/59
--- NOTE | 2017-11-02 12:00 | CP.PCM.PN ---
Subjective - Date & Time of Evaluation Date of Evaluation: 11/02/17 Time of Evaluation: 08:00 - Subjective Subjective: GI Progress note Dr. Foreman Pt was seen and examined at bedside. Pt is for TCU today. Pt found to be resting comfortably tolerating po intake and moving bowels regularly. Pt noted his last bm was loose. Pt denied fever, chills, sob, chest pains, abdominal pains, nausea, vomiting, constipation, or urinary symptoms. Objective - Vital Signs/Intake and Output Vital Signs (last 24 hours): Temp Pulse Resp BP Pulse Ox 98.2 F 89 20 118/59 L 97 11/02/17 08:35 11/02/17 10:00 11/02/17 08:35 11/02/17 10:00 11/02/17 08:35 Intake and Output: 11/02/17 11/02/17 06:59 18:59 Intake Total 500 0 Output Total 100 0 Balance 400 0 - Medications Medications: Current Medications Aspirin (Aspirin Chewable) 81 mg PEG DAILY [facility] Last Admin: 11/02/17 09:55 Dose: 81 mg Atorvastatin Calcium (Lipitor) 10 mg PEG DAILY [facility] Last Admin: 11/02/17 09:55 Dose: 10 mg Clopidogrel Bisulfate (Plavix) 75 mg PEG DAILY [facility] Last Admin: 11/02/17 09:56 Dose: 75 mg Hydromorphone HCl (Dilaudid) 1 mg IVP Q4H PRN PRN Reason: Pain, severe (8-10) Last Admin: 11/02/17 08:23 Dose: 1 mg Linezolid (Zyvox 600mg/300ml D5w) 600 mg in 300 mls @ 200 mls/hr IVPB Q12 [facility] PRN Reason: Protocol Stop: 11/06/17 12:16 Last Admin: 11/02/17 09:58 Dose: 200 mls/hr Cefepime HCl (Maxipime 1gm) 1 gm in 100 mls @ 100 mls/hr IVPB DAILY [facility] PRN Reason: Protocol Last Admin: 11/02/17 09:56 Dose: 100 mls/hr Sodium Chloride (Sodium Chloride 0.9%) 1,000 mls @ 100 mls/hr IV .Q10H [facility] Last Admin: 11/02/17 06:39 Dose: 100 mls/hr Lidocaine HCl (Xylocaine 2%) 0 ea TOP TID PRN PRN Reason: Pain, Mild (1-3) Last Admin: 11/01/17 20:23 Dose: 1 applic Metoprolol Tartrate (Lopressor) 25 mg PEG Q12H [facility] Last Admin: 11/02/17 10:00 Dose: 25 mg Mupirocin (Bactroban Ointment) 0 gm TOP BID [facility] Last Admin: 11/02/17 09:55 Dose: 1 appl Non-Formulary Medication (Ultra Coq10) 100 mg PEG MWF [facility] Last Admin: 11/02/17 09:58 Dose: Not Given Ondansetron HCl (Zofran Inj) 4 mg IVP Q4H PRN PRN Reason: Nausea/Vomiting Pantoprazole Sodium (Protonix Inj) 40 mg IVP DAILY [facility] Last Admin: 11/02/17 09:57 Dose: 40 mg Potassium Chloride (Potassium Chloride Oral Soln) 20 meq PEG BID [facility] Last Admin: 11/02/17 09:56 Dose: 20 meq Silver Sulfadiazine (Silvadene 1% 25 Gm) 0 gm TP BID [facility] Last Admin: 11/02/17 09:57 Dose: 25 gm - Labs Labs: 11/02/17 05:00 11/02/17 05:49 PT 11.6 SECONDS (9.4-12.5) 10/30/17 00:30 INR 1.02 (0.93-1.08) 10/30/17 00:30 APTT 29.4 Seconds (25.1-36.5) 10/30/17 00:30 - Constitutional Appears: No Acute Distress, Cachectic, Chronically Ill - Head Exam Head Exam: ATRAUMATIC, NORMAL INSPECTION, NORMOCEPHALIC - Eye Exam Eye Exam: EOMI, Normal appearance, PERRL Pupil Exam: NORMAL ACCOMODATION, PERRL - ENT Exam ENT Exam: Mucous Membranes Moist, Normal Exam - Respiratory Exam Respiratory Exam: Clear to Ausculation Bilateral, NORMAL BREATHING PATTERN - Cardiovascular Exam Cardiovascular Exam: REGULAR RHYTHM, +S1, +S2. absent: Murmur - GI/Abdominal Exam GI & Abdominal Exam: Soft, Normal Bowel Sounds. absent: Tenderness Additional comments: PEG in place, patent - Neurological Exam Neurological Exam: Alert, Awake, CN II-XII Intact, Oriented x3 - Psychiatric Exam Psychiatric exam: Normal Affect, Normal Mood - Skin Skin Exam: Dry, Intact, Normal Color, Warm Assessment and Plan - Assessment and Plan (Free Text) Assessment: Laryngeal cancer, on radiation and chemotherapy Left side neck /shoulder/arm with extensive rash, history of cellulitis Dysphagia secondary to above status post PEG Improved shortness of breath CAD Hypertension Plan: TCU finely chopped diet aspiration precautions On aspirin and Plavix Continue GI prophylaxis On IV antibiotics PEG patent DVT prophylaxis, SCD As per oncology Seen and discussed with Dr. Foreman.
[2017-11-02 12:01] LABS: FREE T4 1.33 ng/dL (0.78-2.19); T4 6.2 ug/dL (5.5-11.0)
[2017-11-02 12:14] LABS: T3 0.7 ng/mL (0.97-1.69)
--- NOTE | 2017-11-02 14:13 | CP.PCM.CON ---
History of Present Illness - History of Present Illness History of Present Illness: Consult: Surgery, Dr. 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 He reports a repeat vesicular skin eruption about 10 days ago which he was treating at home with silvadene cream. The vesicle crusted over but despite home treatment continued to spread. He reports having pain occasionally in the area of the rash. He denies f/c/n/v. He is currently being treated for MRSA imposed infection of radiation dermatitis and ID requesting skin biopsy to rule out underlying fungal colonization. 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 PSH: CABG Social: denies etoh or drug abuse, former tobacco use Family hx: noncontributory Review of Systems - Review of Systems All systems: reviewed and no additional remarkable complaints except Review of Systems: unremarkable unless stated in HPI Past Patient History - Infectious Disease Hx of Infectious Diseases: None - Past Social History Smoking Status: Former Smoker - CARDIAC Hx Cardiac Disorders: Yes Hx Hypertension: Yes - PULMONARY Hx Chronic Obstructive Pulmonary Disease (COPD): Yes - NEUROLOGICAL Hx Neurological Disorder: No - HEENT Hx HEENT Problems: Yes Other/Comment: THROAT CA - RENAL Hx Chronic Kidney Disease: No - ENDOCRINE/METABOLIC Hx Endocrine Disorders: No - HEMATOLOGICAL/ONCOLOGICAL Hx Cancer: Yes (throat) - INTEGUMENTARY Hx Dermatological Problems: No - MUSCULOSKELETAL/RHEUMATOLOGICAL Hx Falls: Yes - GASTROINTESTINAL Other/Comment: peg tube placement - GENITOURINARY/GYNECOLOGICAL Hx Reproductive Disorders: No - PSYCHIATRIC Hx Psychophysiologic Disorder: No Hx Substance Use: No - SURGICAL HISTORY Other/Comment: G TUBE, PORT R UPPER CHEST. - ANESTHESIA Hx Anesthesia: Yes Meds Allergies/Adverse Reactions: Allergies Allergy/AdvReac Type Severity Reaction Status Date / Time No Known Allergies Allergy Verified 10/30/17 02:46 - Medications Medications: Current Medications Aspirin (Aspirin Chewable) 81 mg PEG DAILY [facility] Last Admin: 11/02/17 09:55 Dose: 81 mg Atorvastatin Calcium (Lipitor) 10 mg PEG DAILY [facility] Last Admin: 11/02/17 09:55 Dose: 10 mg Clopidogrel Bisulfate (Plavix) 75 mg PEG DAILY [facility] Last Admin: 11/02/17 09:56 Dose: 75 mg Hydromorphone HCl (Dilaudid) 1 mg IVP Q4H PRN PRN Reason: Pain, severe (8-10) Last Admin: 11/02/17 13:08 Dose: 1 mg Linezolid (Zyvox 600mg/300ml D5w) 600 mg in 300 mls @ 200 mls/hr IVPB Q12 [facility] PRN Reason: Protocol Stop: 11/06/17 12:16 Last Admin: 11/02/17 09:58 Dose: 200 mls/hr Cefepime HCl (Maxipime 1gm) 1 gm in 100 mls @ 100 mls/hr IVPB DAILY [facility] PRN Reason: Protocol Last Admin: 11/02/17 09:56 Dose: 100 mls/hr Sodium Chloride (Sodium Chloride 0.9%) 1,000 mls @ 100 mls/hr IV .Q10H [facility] Last Admin: 11/02/17 06:39 Dose: 100 mls/hr Lidocaine HCl (Xylocaine 2%) 0 ea TOP TID PRN PRN Reason: Pain, Mild (1-3) Last Admin: 11/01/17 20:23 Dose: 1 applic Metoprolol Tartrate (Lopressor) 25 mg PEG Q12H [facility] Last Admin: 11/02/17 10:00 Dose: 25 mg Mupirocin (Bactroban Ointment) 0 gm TOP BID [facility] Last Admin: 11/02/17 09:55 Dose: 1 appl Non-Formulary Medication (Ultra Coq10) 100 mg PEG MWF [facility] Last Admin: 11/02/17 09:58 Dose: Not Given Ondansetron HCl (Zofran Inj) 4 mg IVP Q4H PRN PRN Reason: Nausea/Vomiting Pantoprazole Sodium (Protonix Inj) 40 mg IVP DAILY [facility] Last Admin: 11/02/17 09:57 Dose: 40 mg Potassium Chloride (Potassium Chloride Oral Soln) 20 meq PEG BID [facility] Last Admin: 11/02/17 09:56 Dose: 20 meq Silver Sulfadiazine (Silvadene 1% 25 Gm) 0 gm TP BID [facility] Last Admin: 11/02/17 09:57 Dose: 25 gm Physical Exam - Constitutional Appears: Non-toxic, No Acute Distress - Head Exam Head Exam: ATRAUMATIC, NORMOCEPHALIC - Eye Exam Eye Exam: EOMI, Normal appearance - ENT Exam ENT Exam: Mucous Membranes Moist - Neck Exam Additional comments: rash on left side of neck and chest and shoulder with crusty eruptions diffuse and random distribution. Underlying radiation skin changes noted. - Respiratory Exam Respiratory Exam: NORMAL BREATHING PATTERN. absent: Respiratory Distress - Cardiovascular Exam Cardiovascular Exam: REGULAR RHYTHM. absent: Tachycardia - GI/Abdominal Exam Additional comments: PEG - Extremities Exam Extremities exam: Positive for: normal inspection. Negative for: calf tenderness Results - Vital Signs Recent Vital Signs: Last Vital Signs Temp 98.2 F 11/02/17 08:35 Pulse 89 11/02/17 10:00 Resp 20 11/02/17 08:35 BP 118/59 L 11/02/17 10:00 Pulse Ox 97 11/02/17 08:35 - Labs Result Diagrams: 11/02/17 05:00 11/02/17 05:49 Labs: Laboratory Results - last 24 hr 11/01/17 11/01/17 11/02/17 13:00 13:30 05:00 WBC 11.9 H D RBC 3.08 L Hgb 8.8 L Hct 26.8 L MCV 87.0 MCH 28.6 MCHC 32.8 RDW 14.0 Plt Count 277 MPV 9.6 Sodium Potassium Chloride Carbon Dioxide Anion Gap BUN Creatinine Est GFR ( Amer) Est GFR (Non-Af Amer) Random Glucose Uric Acid Calcium Phosphorus Magnesium Total Bilirubin AST ALT Alkaline Phosphatase Total Protein Albumin Globulin Albumin/Globulin Ratio Free T4 Thyroxine (T4) 6.2 Total T3 TSH 3rd Generation 13.60 H Cortisol AM Sample Urine Osmolality 462 11/02/17 11/02/17 11/02/17 05:49 05:49 11:09 WBC RBC Hgb Hct MCV MCH MCHC RDW Plt Count MPV Sodium 124 L Potassium 4.0 Chloride 92 L Carbon Dioxide 28 Anion Gap 8 L BUN 21 Creatinine 0.9 Est GFR ( Amer) > 60 Est GFR (Non-Af Amer) > 60 Random Glucose 116 H Uric Acid 4.2 Calcium 8.6 Phosphorus 4.1 Magnesium 1.8 Total Bilirubin 1.1 AST 35 ALT 27 Alkaline Phosphatase 59 Total Protein 5.8 Albumin 2.8 L Globulin 3.0 Albumin/Globulin Ratio 0.9 L Free T4 1.33 Thyroxine (T4) 6.2 Total T3 0.70 L TSH 3rd Generation Cortisol AM Sample 28.0 H Urine Osmolality Assessment & Plan - Assessment and Plan (Free Text) Assessment: 87 y/o male w/ MRSA skin infection in setting of radiation dermatitis Plan: -cont abx -will start nystatin cream topically -if skin does not improve by Sunday will biopsy area -will follow -patient seen and examined with Dr. Homer Gallo PGY3 - Date & Time Date: 11/02/17 Time: 16:16
--- NOTE | 2017-11-02 14:54 | CP.PCM.DIS ---
Provider - Provider Date of Admission: 10/30/17 16:00 Attending physician: Gary Zapata MD Primary care physician: José Antonio Keith MD Consults: GI: Kellen Surgery: Homer Cardio: Yessenia ID: Viraj Nephro: Valeri Podiatry: Podiatry ENT: Gloria Time Spent in preparation of Discharge (in minutes): 35 Diagnosis - Discharge Diagnosis (1) Hyponatremia Status: Acute Priority: High (2) Cellulitis Status: Acute Priority: High (3) Dyspnea on exertion Status: Resolved Priority: Medium (4) Laryngeal cancer Status: Chronic Priority: High Hospital Course - Lab Results Lab Results: Micro Results 10/30/17 23:55 Shoulder - Left Gram Stain - Final 10/30/17 23:55 Shoulder - Left Wound Culture - Final Methicillin Resistant S Aureus 10/30/17 17:19 Blood-Venous Blood Culture - Preliminary NO GROWTH AFTER 48 HOURS 10/30/17 17:19 Blood-Venous Blood Culture - Preliminary NO GROWTH AFTER 48 HOURS Most Recent Lab Values WBC 11.9 10^3/ul (4.5-11.0) H D 11/02/17 05:00 RBC 3.08 10^6/uL (3.5-6.1) L 11/02/17 05:00 Hgb 8.8 g/dL (14.0-18.0) L 11/02/17 05:00 Hct 26.8 % (42.0-52.0) L 11/02/17 05:00 MCV 87.0 fl (80.0-105.0) 11/02/17 05:00 MCH 28.6 pg (25.0-35.0) 11/02/17 05:00 MCHC 32.8 g/dl (31.0-37.0) 11/02/17 05:00 RDW 14.0 % (11.5-14.5) 11/02/17 05:00 Plt Count 277 10^3/uL (120.0-450.0) 11/02/17 05:00 MPV 9.6 fl (7.0-11.0) 11/02/17 05:00 Gran % 58.2 % (50.0-68.0) 11/01/17 06:20 Lymph % (Auto) 9.2 % (22.0-35.0) L 11/01/17 06:20 [place] % (Auto) 12.7 % (1.0-6.0) H 11/01/17 06:20 Eos % (Auto) 19.6 % (1.5-5.0) H 11/01/17 06:20 Baso % (Auto) 0.3 % (0.0-3.0) 11/01/17 06:20 Gran # 4.63 (1.4-6.5) 11/01/17 06:20 Lymph # (Auto) 0.7 (1.2-3.4) L 11/01/17 06:20 [place] # (Auto) 1.0 (0.1-0.6) H 11/01/17 06:20 Eos # (Auto) 1.6 (0.0-0.7) H 11/01/17 06:20 Baso # (Auto) 0.02 K/mm3 (0.0-2.0) 11/01/17 06:20 PT 11.6 SECONDS (9.4-12.5) 10/30/17 00:30 INR 1.02 (0.93-1.08) 10/30/17 00:30 APTT 29.4 Seconds (25.1-36.5) 10/30/17 00:30 Sodium 124 mmol/L (132-148) L 11/02/17 05:49 Potassium 4.0 mmol/L (3.6-5.0) 11/02/17 05:49 Chloride 92 mmol/L (98-107) L 11/02/17 05:49 Carbon Dioxide 28 mmol/L (21-33) 11/02/17 05:49 Anion Gap 8 (10-20) L 11/02/17 05:49 BUN 21 mg/dL (7-21) 11/02/17 05:49 Creatinine 0.9 mg/dl (0.8-1.5) 11/02/17 05:49 Est GFR ( Amer) > 60 11/02/17 05:49 Est GFR (Non-Af Amer) > 60 11/02/17 05:49 Random Glucose 116 mg/dL (70-110) H 11/02/17 05:49 Uric Acid 4.2 mg/dL (3.5-8.5) 11/02/17 05:49 Calcium 8.6 mg/dL (8.4-10.5) 11/02/17 05:49 Phosphorus 4.1 mg/dL (2.5-4.5) 11/02/17 05:49 Magnesium 1.8 mg/dL (1.7-2.2) 11/02/17 05:49 Total Bilirubin 1.1 mg/dL (0.2-1.3) 11/02/17 05:49 AST 35 U/L (17-59) 11/02/17 05:49 ALT 27 U/L (7-56) 11/02/17 05:49 Alkaline Phosphatase 59 U/L (38-126) 11/02/17 05:49 Lactate Dehydrogenase 412 U/L (333-699) 10/30/17 00:21 Total Creatine Kinase < 20 U/L (35-230) L 10/30/17 00:21 Troponin I < 0.01 ng/mL 10/30/17 10:00 NT-Pro-B Natriuret Pep 673 pg/mL (0-450) H 10/30/17 00:21 Total Protein 5.8 g/dL (5.8-8.3) 11/02/17 05:49 Albumin 2.8 g/dL (3.0-4.8) L 11/02/17 05:49 Globulin 3.0 gm/dL 11/02/17 05:49 Albumin/Globulin Ratio 0.9 (1.1-1.8) L 11/02/17 05:49 Free T4 1.33 ng/dL (0.78-2.19) 11/02/17 11:09 Thyroxine (T4) 6.2 ug/dL (5.5-11.0) 11/02/17 11:09 Total T3 0.70 ng/mL (0.97-1.69) L 11/02/17 11:09 TSH 3rd Generation 13.60 mIU/mL (0.46-4.68) H 11/01/17 13:30 Cortisol AM Sample 28.0 ug/dL (4.46-22.7) H 11/02/17 05:49 Urine Osmolality 462 mosm/kg (300-1000) 11/01/17 13:00 Ur Random Sodium 70 meq/L 11/01/17 13:00 - Hospital Course Hospital Course: Heme-onc Discharge Summary, Vadim Brooks DO, PGY-2 IM This is an 87 yo M with PMH of 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 While here, he was seen by ID, ENT, Nephro, Surgery, GI, Podiatry, and Cardio. As per ID, likely cellulitis, managed with Linezolid, but now wound cultures have returned positive for MRSA ( no Vanco due to prior renal insult while on Vanco). ID also recs obtaining a Skin biopsy to assess for possible fungal or mycobacterial involvement, which is currently pending as per Surgery (will be done in TCU). As per Cardio, his elevated trops were likely 2/2 underlying lung disease and the shortness of breath likely multifactorial; an Echo was obtained, and was remarkable only for an EF of 63% and aortic sclerosis. As per Speech therapist and GI, he was cleared for Finely chopped diet with thin liquids. Due to his dropping Hgb, he was started on IV Venofer to replete his iron stores for 3 doses. Today, patient reports improvement of symptoms, including his breathing, hoarseness, and the cellulitis pain. Site appears to be receding, and is less confluent; no sites of active bleeding or oozing. He denies chest pain, cough, hemoptysis , or nausea/emesis. Patient will be transferred to TCU, to receive strengthening while still receiving IV antibiotic therapy for his cellulitis. Patient reviewed and discussed at length with attending, Dr. Smith. Discharge Exam - Additional Findings Additional findings: - Constitutional Appears: Non-toxic, No Acute Distress, Cachectic (very cachetic, can see sternotomy wires from CABG pushing up through skin at sterum), Chronically Ill - Head Exam Head Exam: ATRAUMATIC, NORMAL INSPECTION, NORMOCEPHALIC - Eye Exam Eye Exam: EOMI, Normal appearance. absent: Conjunctival injection, Scleral icterus Pupil Exam: absent: Irregular, Unequal - ENT Exam ENT Exam: Mucous Membranes Dry Additional comments: Hoarseness No petechiae or active bleeding sources identified No exudates or candidiasis appreciated - Neck Exam Neck exam: Positive for: Full Rom - Respiratory Exam Respiratory Exam: Diffuse mild ronchi in all jules, NORMAL BREATHING PATTERN. absent: Accessory Muscle Use, Rales, Rhonchi, Wheezes - Cardiovascular Exam Cardiovascular Exam: REGULAR RHYTHM, RRR, +S1, +S2. absent: Bradycardia, Tachycardia, Irregular Rhythm, +S4 - GI/Abdominal Exam GI & Abdominal Exam: Normal Bowel Sounds, Soft. absent: Diminished Bowel Sounds , Distended, Firm, Hyperactive Bowel Sounds, Hypoactive Bowel Sounds, Rigid, Tenderness - Extremities Exam Extremities exam: Positive for: pedal pulses present. Negative for: calf tenderness, pedal edema, tenderness Additional comments: mildly waxy-like skin at bilateral LE from extending from feet to ankles distal LE warm to palpation - Neurological Exam Neurological exam: Alert, Oriented x3 Additional comments: following all commands appropriately, moving all extremities spontaneously motor appears grossly intact and equal bilaterally - Psychiatric Exam Psychiatric exam: Normal Affect, Normal Mood - Skin Skin Exam: Dry, Intact, Normal Color, Warm (Except as listed below) Additional comments: Sternotomy wires visualized pushing up skin at sternum, right chest port easily visualized through skin, but neither with breakdown or breakthrough of skin Left sided rash/cellulitis, patchy, extending from left posterior neck to left arm, shoulder, and left superior chest wall involvement. Extensive scattered scabbing overlying, warm to touch compared to surrounding skin but not acutely tender, no sloughing of skin on palpation; improved today, covering less area and less confluent as compared to prior exam Discharge Plan - Follow Up Plan Condition: STABLE Disposition: REHAB FACILITY/REHAB UNIT Instructions: Laryngeal Cancer, Methicillin-Resistant Staphylococcus aureus ( MRSA), MRSA (DC), Radiation Therapy, External, Wound Care (DC) Additional Instructions: PT IS DISCHARGED TO TCU.
--- NOTE | 2017-11-02 17:44 | CP.PCM.PN ---
Subjective - Date & Time of Evaluation Date of Evaluation: 11/02/17 Time of Evaluation: 11:05 - Subjective Subjective: Still having pain on the left shoulder, left chest area but better, no fevers. Objective - Vital Signs/Intake and Output Vital Signs (last 24 hours): Temp Pulse Resp BP Pulse Ox 98.2 F 89 20 118/59 L 97 11/02/17 08:35 11/02/17 10:00 11/02/17 08:35 11/02/17 10:00 11/02/17 08:35 Intake and Output: 11/02/17 11/02/17 06:59 18:59 Intake Total 500 0 Output Total 100 0 Balance 400 0 - Medications Medications: Current Medications Aspirin (Aspirin Chewable) 81 mg PEG DAILY [facility] Last Admin: 11/02/17 09:55 Dose: 81 mg Atorvastatin Calcium (Lipitor) 10 mg PEG DAILY [facility] Last Admin: 11/02/17 09:55 Dose: 10 mg Clopidogrel Bisulfate (Plavix) 75 mg PEG DAILY [facility] Last Admin: 11/02/17 09:56 Dose: 75 mg Hydromorphone HCl (Dilaudid) 1 mg IVP Q4H PRN PRN Reason: Pain, severe (8-10) Last Admin: 11/02/17 08:23 Dose: 1 mg Linezolid (Zyvox 600mg/300ml D5w) 600 mg in 300 mls @ 200 mls/hr IVPB Q12 [facility] PRN Reason: Protocol Stop: 11/06/17 12:16 Last Admin: 11/02/17 09:58 Dose: 200 mls/hr Cefepime HCl (Maxipime 1gm) 1 gm in 100 mls @ 100 mls/hr IVPB DAILY [facility] PRN Reason: Protocol Last Admin: 11/02/17 09:56 Dose: 100 mls/hr Sodium Chloride (Sodium Chloride 0.9%) 1,000 mls @ 100 mls/hr IV .Q10H [facility] Last Admin: 11/02/17 06:39 Dose: 100 mls/hr Lidocaine HCl (Xylocaine 2%) 0 ea TOP TID PRN PRN Reason: Pain, Mild (1-3) Last Admin: 11/01/17 20:23 Dose: 1 applic Metoprolol Tartrate (Lopressor) 25 mg PEG Q12H [facility] Last Admin: 11/02/17 10:00 Dose: 25 mg Mupirocin (Bactroban Ointment) 0 gm TOP BID [facility] Last Admin: 11/02/17 09:55 Dose: 1 appl Non-Formulary Medication (Ultra Coq10) 100 mg PEG MWF [facility] Last Admin: 11/02/17 09:58 Dose: Not Given Ondansetron HCl (Zofran Inj) 4 mg IVP Q4H PRN PRN Reason: Nausea/Vomiting Pantoprazole Sodium (Protonix Inj) 40 mg IVP DAILY [facility] Last Admin: 11/02/17 09:57 Dose: 40 mg Potassium Chloride (Potassium Chloride Oral Soln) 20 meq PEG BID [facility] Last Admin: 11/02/17 09:56 Dose: 20 meq Silver Sulfadiazine (Silvadene 1% 25 Gm) 0 gm TP BID [facility] Last Admin: 11/02/17 09:57 Dose: 25 gm - Labs Labs: 11/02/17 05:00 11/02/17 05:49 PT 11.6 SECONDS (9.4-12.5) 10/30/17 00:30 INR 1.02 (0.93-1.08) 10/30/17 00:30 APTT 29.4 Seconds (25.1-36.5) 10/30/17 00:30 - Constitutional Appears: Cachectic, Chronically Ill - Head Exam Head Exam: NORMAL INSPECTION - ENT Exam ENT Exam: Mucous Membranes Moist - Neck Exam Neck Exam: absent: Meningismus Additional comments: left shoulder and chest area with necrotic lesions,decreasing erythema - Respiratory Exam Respiratory Exam: Decreased Breath Sounds - Cardiovascular Exam Cardiovascular Exam: +S1, +S2 - GI/Abdominal Exam GI & Abdominal Exam: Soft. absent: Tenderness Assessment and Plan - Assessment and Plan (Free Text) Plan: Assessment superinfection of left side of neck with bacteria, R/O viral, fungal or mycobacterial infection histroy of radiation dermatitis on left side of neck with superimposed cellulitis, growing MRSA acute renal failure, R/O Vancomycin-induced nephrotoxicity, slowly improving throat cancer S/P port placement on chemotherapy and radiation therapy S/P PEG placement Plan continue Zyvox, cefepime and Bactroban ointment day 4, and famvir; wound cx showing MRSA; would suggest skin biopsy to be sent for fungal, mycobacterial cultures as well -planned for Sunday per Dr. Smith overall prognosis is poor
== END 2017-11-02 14:34 | DRG 603 ==
LOC: ED 22:43 → ERH 10-30 03:19 → 3RNO 10-30 05:23 → OBSVTOIN 10-30 16:00
PROVIDERS: ADMIT Family Medicine; ATTEND Family Medicine
PROC: 3E03328 Introduction of Oxazolidinones into Peripheral Vein, Percutaneous Approach (ICD-10-PCS; principal; 2017-10-30)
PROC: 3E0G76Z Introduction of Nutritional Substance into Upper GI, Via Natural or Artificial Opening (ICD-10-PCS; 2017-10-30)
DX: L03.221 Cellulitis of neck (principal); R64 Cachexia; Z93.1 Gastrostomy status; E87.1 Hypo-osmolality and hyponatremia; R13.10 Dysphagia, unspecified; B95.62 Methicillin resistant Staphylococcus aureus infection as the cause of diseases classified elsewhere; Z68.1 Body mass index [BMI] 19.9 or less, adult; C32.9 Malignant neoplasm of larynx, unspecified; L59.8 Other specified disorders of the skin and subcutaneous tissue related to radiation; D63.0 Anemia in neoplastic disease; J44.9 Chronic obstructive pulmonary disease, unspecified; I25.10 Atherosclerotic heart disease of native coronary artery without angina pectoris; I10 Essential (primary) hypertension; E78.5 Hyperlipidemia, unspecified; Z91.81 History of falling; Z95.1 Presence of aortocoronary bypass graft; Z96.651 Presence of right artificial knee joint; Z87.891 Personal history of nicotine dependence

== ENCOUNTER 2017-11-02 14:42 | Inpatient (IN) | payer OTHER, MEDICARE ==
--- NOTE | 2017-11-02 16:17 | CP.PCM.PCO ---
Physician Communication Note - Physician Communication Note Physician Communication Note: please see surgical consult note from 11/02 on hospital visit
[2017-11-02] MEDS: HYDROmorphone 1 mg/ml ISec IVP PRN ×3 (16:51→23:52)
[2017-11-02] MEDS ORDERED: Nystatin 100,000 Units/gm Cream(15 gm) TOP SCH (18:00)
[2017-11-02] MEDS: Potassium Chloride 20 mEq/15 ml LIQ UD PO SCH (18:13)
[2017-11-02] MEDS: Nystatin 100,000 Units/gm Cream(15 gm) TOP SCH (19:33)
[2017-11-02] MEDS: Silver Sulfadiazine 1% Cream (25 gm) TP SCH (19:35)
[2017-11-02] MEDS: Linezolid 600 mg in D5W 300 ml 600 MG/300 ML BAG IVPB SCH (22:31)
[2017-11-02 23:20] VITALS: BMI 16.5
[2017-11-02] MEDS ORDERED: Influenza Vaccine 60 mcg/0.5 mL SYR (4YR UP) IM ONE (23:20)
[2017-11-02] MEDS ORDERED: Pneumococcal 23-Valent Vaccine IM ONE (23:20)
[2017-11-03] MEDS: Lidocaine 2% Jelly (30 ml) TOP PRN ×3 (02:23→22:21)
[2017-11-03] MEDS: Sodium Chloride 0.9% 1,000 ML IV SCH (02:23)
[2017-11-03] MEDS: HYDROmorphone 1 mg/ml ISec IVP PRN ×3 (03:22→15:07)
[2017-11-03] MEDS ORDERED: Cefepime 1gm in NS 100ml 1 GM/100 ML BAG IVPB SCH (06:00)
--- NOTE | 2017-11-03 08:12 | CP.PCM.PN ---
Subjective - Date & Time of Evaluation Date of Evaluation: 11/03/17 Time of Evaluation: 08:05 - Subjective Subjective: Surgery Pt s&e. Reports mild improvement on skin. Getting ointment on the skin. Denies F /C/N/V/D/Cp/SOb. Objective - Vital Signs/Intake and Output Vital Signs (last 24 hours): Temp Pulse Resp BP Pulse Ox 97 F L 68 16 90/53 L 11/02/17 22:57 11/02/17 22:57 11/02/17 22:57 11/02/17 22:57 - Medications Medications: Current Medications Aspirin (Ecotrin) 81 mg PO 0800 [facility] PRN Reason: Protocol Atorvastatin Calcium (Lipitor) 10 mg PO DIN [facility] PRN Reason: Protocol Last Admin: 11/02/17 18:11 Dose: 10 mg Clopidogrel Bisulfate (Plavix) 75 mg PEG DAILY [facility] Famciclovir (Famvir) 500 mg PO Q12 [facility] PRN Reason: Protocol Hydromorphone HCl (Dilaudid) 1 mg IVP Q4H PRN; Protocol PRN Reason: Pain, severe (8-10) Last Admin: 11/03/17 06:57 Dose: 1 mg Cefepime HCl (Maxipime 1gm) 1 gm in 100 mls @ 100 mls/hr IVPB 0600 [facility] PRN Reason: Protocol Stop: 11/10/17 06:01 Last Admin: 11/03/17 04:59 Dose: 100 mls/hr Sodium Chloride (Sodium Chloride 0.9%) 1,000 mls @ 100 mls/hr IV .Q10H [facility] Last Admin: 11/03/17 02:23 Dose: 100 mls/hr Linezolid (Zyvox 600mg/300ml D5w) 600 mg in 300 mls @ 200 mls/hr IVPB Q12 [facility] PRN Reason: Protocol Stop: 11/09/17 22:01 Last Admin: 11/02/17 22:31 Dose: 200 mls/hr Lidocaine HCl (Xylocaine 2%) 1 ea TOP TID PRN; Protocol PRN Reason: Pain, moderate (4-7) Last Admin: 11/03/17 02:23 Dose: 1 applic Metoprolol Tartrate (Lopressor) 25 mg PO 0800,1800 [facility] PRN Reason: Protocol Last Admin: 11/02/17 18:12 Dose: Not Given Mupirocin (Bactroban Ointment) 1 gm TOP BID [facility] PRN Reason: Protocol Last Admin: 11/02/17 19:31 Dose: 1 oin Nystatin (Mycostatin Cream) 0 ea TOP TID [facility] Last Admin: 11/02/17 19:33 Dose: 1 cre Ondansetron HCl (Zofran Inj) 4 mg IVP Q4H PRN; Protocol PRN Reason: Nausea/Vomiting Pantoprazole Sodium (Protonix Inj) 40 mg IVP 0600 [facility] PRN Reason: Protocol Last Admin: 11/03/17 04:59 Dose: 40 mg Potassium Chloride (Potassium Chloride Oral Soln) 20 meq PO 0800,1800 [facility] PRN Reason: Protocol Last Admin: 11/02/17 18:13 Dose: 20 meq Silver Sulfadiazine (Silvadene 1% 25 Gm) 0 gm TP BID [facility] PRN Reason: Protocol Last Admin: 11/02/17 19:35 Dose: 1 gm - Constitutional Appears: Cachectic, Chronically Ill - Head Exam Head Exam: ATRAUMATIC, NORMAL INSPECTION, NORMOCEPHALIC - Eye Exam Eye Exam: EOMI, Normal appearance, PERRL Pupil Exam: NORMAL ACCOMODATION, PERRL - ENT Exam ENT Exam: Mucous Membranes Moist - Neck Exam Neck Exam: Tenderness. absent: Full ROM Additional comments: Dry, excoriated, erythematous skin. - Cardiovascular Exam Cardiovascular Exam: REGULAR RHYTHM - GI/Abdominal Exam GI & Abdominal Exam: Soft, Normal Bowel Sounds. absent: Distended, Tenderness - Neurological Exam Neurological Exam: Alert, Awake, Oriented x3 - Psychiatric Exam Psychiatric exam: Normal Affect, Normal Mood - Skin Skin Exam: Abrasion, Dry, Erythema, Intact, Rash, Warm Assessment and Plan - Assessment and Plan (Free Text) Assessment: Skin lesions and rash on upper chest and neck s/p radiation for [place]ge[place] CA -Biopsy on Sunday if skin doesn't get better -APply ointment PRN WIll KENDY Coronel
[2017-11-03] MEDS: Potassium Chloride 20 mEq/15 ml LIQ UD PO SCH ×2 (08:44→19:04)
[2017-11-03] MEDS: Nystatin 100,000 Units/gm Cream(15 gm) TOP SCH ×2 (09:04→14:35)
[2017-11-03] MEDS: Silver Sulfadiazine 1% Cream (25 gm) TP SCH ×2 (09:04→19:07)
[2017-11-03] MEDS: Linezolid 600 mg in D5W 300 ml 600 MG/300 ML BAG IVPB SCH (09:05)
[2017-11-03] MEDS ORDERED: CLOPIDOGREL 75 MG PEG SCH (10:00)
--- NOTE | 2017-11-03 13:45 | PN ---
DATE: SUBJECTIVE: The patient is currently seen in the TCU. He was transferred to the TCU from [facility]. He continues on IV antibiotics for his MRSA, left shoulder cellulitis. He remains hyponatremic. MEDICATIONS: Medication list reviewed. The patient is currently on mupirocin, Dilaudid, Ecotrin, Famvir, Lipitor, Lopressor, Maxipime, Mycostatin, Plavix, potassium, Protonix, Silvadene, normal saline 100 ml an hour, lidocaine p.r.n., Zofran p.r.n., and Zyvox IV. OBJECTIVE VITAL SIGNS: Blood pressure 90/53, temperature 97, respiratory rate 16 with a pulse of 68. HEENT: Exam shows him to be normocephalic, atraumatic. Conjunctivae are pale. Sclerae are nonicteric. NECK: Supple. Positive radiation changes over the left side of his neck extending down into the left anterior chest wall. Areas of hyperpigmentation and superinfection. No neck vein distention. CHEST: Clear to auscultation and percussion. No rales, rhonchi or wheezing. CARDIOVASCULAR: Shows a regular rate and rhythm without murmurs, rubs or gallops. ABDOMEN: Soft. Bowel sounds normal. No rebound, guarding or masses. He has a PEG tube in place and he is receiving Jevity at 40 mL an hour. EXTREMITIES: Show no lower extremity cyanosis, clubbing or edema. Lower extremity pulses are 1+ to 2+ bilateral. LABORATORY DATA AND IMAGING: CBC from yesterday: White blood cell count 11.9, hemoglobin 8.8 with a platelet count of 277,000. Chemistries from yesterday showed a sodium, which has steadily been decreasing 130 down to 124 yesterday. Potassium is normalized at 4.0, up from 3.4. BUN is 21 with a creatinine of 0.9. Calcium, phosphorus, magnesium level was normal. Liver enzymes are normal. Albumin is low at 2.8. Of note, TSH level was mildly elevated. However, free T4 level was normal. T3 level was low. Cortisol level was 28, which is slightly above the normal range. Urine sodium was 70 with urine osmolality of 462. ASSESSMENT 1. Hyponatremia. This was thought to initially be secondary to the patient using both hydrochlorothiazide and Zaroxolyn. Initial urine studies were done when he was on these medications so perhaps the results are not completely correct and accurate or predictive. The patient is receiving PEG tube feeding, but is only receiving 50 mL total of flush. His oral fluid intake appears to be minimal. 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 Of note, the patient's thyroid function tests were a kind of borderline with an elevated TSH and a low T3. However, his free T4 level is normal. I agree with continuing the patient on normal saline. If the sodium continues to drop, I will treat him with tolvaptan. Perhaps, an endocrine evaluation for evaluation of his confusing thyroid results to see whether or not he requires thyroid supplementation. 2. History of stage IV laryngeal cancer, on outpatient radiation therapy and Erbitux. 3. History of hypertension. Blood pressure is in the low normal range. 4. Dermatitis of the left neck and left upper chest wall. The patient is positive for MRSA. He is continuing on antibiotic therapy; hence, his transfer to the TCU. 5. History of chronic obstructive pulmonary disease secondary to long history of cigarette smoking. 6. History of hyperlipidemia, on statin and diet therapy. 7. History of atherosclerotic heart disease, status post coronary artery bypass graft. The patient is stable. 8. History of anemia secondary to chronic kidney disease. Hemoglobin level is 8.8. PLAN 1. Continue IV fluid, normal saline hydration. 2. Minimize p.o. fluid intake. He is only receiving 50 mL of fluid for flushes for his PEG tube feedings. 3. Perhaps, Endocrine evaluation for evaluation of his abnormal thyroid profile to see whether or not he requires supplements. 4. If sodium level continues to drop on normal saline, I will give the patient several doses of tolvaptan to help correct his hyponatremia. Camilo Trammell MD [facility]
[2017-11-03] MEDS: HYDROmorphone 0.5 mg/0.5 ml ISec IVP PRN (22:07)
--- NOTE | 2017-11-03 23:56 | CON ---
DATE: 11/03/2017 LOCATION: The patient is in room 319, bed 1. CHIEF COMPLAINT: Weakness. HISTORY OF PRESENT ILLNESS: This is an 87-year-old male with history of laryngeal cancer, coronary artery disease and who had last admission had developed neck cellulitis secondary to radiation and dermatitis. The patient had also developed acute kidney injury, which resolved and now is admitted to the Acute Care with a diagnoses of dyspnea on exertion and laryngeal cancer and was treated and now transferred to transitional care because of a superinfection of left-sided neck and superimposed cellulitis growing MRSA on the last admission. The patient at this point this morning feels weak and shortness of breath and chronically ill. No acute findings. PAST MEDICAL HISTORY: Significant for laryngeal cancer, coronary artery disease, neck cellulitis and dermatitis secondary to radiation, acute kidney injury, chronic obstructive lung disease, hypertension, coronary artery disease. PAST SURGICAL HISTORY: Significant for coronary bypass graft. ALLERGIES: THE PATIENT HAS NO KNOWN ALLERGIES. MEDICATIONS: Noted which include Silvadene, Pravachol and Protonix and hydrochlorothiazide and Plavix and cephalexin. PHYSICAL EXAMINATION: GENERAL: On exam, the patient is in bed, appearing chronically ill, weak, cachectic. VITAL SIGNS: Temperature of 97, blood pressure is 104/40, respiratory rate of 18, heart rate of 68. HEENT: Examination of HEENT is unremarkable. There is temporal wasting. NECK: Supple. Examination of the neck reveals chronic changes. LUNGS: Have decreased breath sounds. HEART: Normal S1, S2. ABDOMEN: Soft, nontender. LABORATORY EXAMINATION: Reveals a white count of 11,900, hemoglobin of 8, platelets of 277. BUN of 21, creatinine of 0.9. The urinalysis is noted and microbiology reveals left shoulder and chest culture from 11/01/2017 with no growth. One from 10/30/2017 grew MRSA and the patient did have MRSA in August also from the neck culture. ASSESSMENT AND PLAN: An 87-year-old male with laryngeal cancer, coronary artery disease, chronic obstructive lung disease, hypertension, coronary artery disease with a super infection with methicillin-resistant Staphylococcus aureus neck cellulitis, which appears to be resolved. The patient did have acute renal failure on vancomycin in August, which is corrected and currently the patient is on Zyvox and cefepime day #5 and Famvir. Skin biopsy is recommended for fungal, mycobacterial and smears and cultures in addition to routine Gram stain and cultures and pathology. Review of orders reveals the patient to be on Famvir p.o. We will discontinue the IV cefepime. The patient is also on IV Zyvox. We will change that to p.o., which today is day #5. We will discontinue in the next 24-48 hours. On exam, the patient's cellulitis appears to be resolving. Cuauhtemoc Olivera MD
--- NOTE | 2017-11-04 03:50 | PN ---
DATE: 11/03/2016 SUBJECTIVE: This patient was seen and evaluated earlier today. Patient's son was at bedside. PHYSICAL EXAMINATION: VITAL SIGNS: Temperature is 98.1, pulse 81, blood pressure 110/75, respirations 22, O2 saturation is 96%. HEENT: Atraumatic, anicteric. NECK: Supple. The skin lesions have significant improvement. LUNGS: Bilateral air entry present. ABDOMEN: Shows the PEG tube in place. ASSESSMENT AND PLAN: Patient is now started on continuous feeding at 40 mL per hour. Patient is also given request for a pureed food, but the patient does not want to take pureed food, but wants to take soft diet. We will discuss with Dr. Smith and also discussed with the son. We will continue his feeding now. Thank you very much for allowing us to participate in the care of the patient. Pj Foreman MD
[2017-11-04] MEDS: HYDROmorphone 0.5 mg/0.5 ml ISec IVP PRN ×2 (06:22→11:01)
[2017-11-04 07:04] LABS: HEMOGLOBIN 8.4 g/dL (14.0-18.0); MEAN CELL VOLUME 84.7 fl (80.0-105.0); MEAN CORPUSCULAR HEMOGLOBIN 28.5 pg (25.0-35.0); MEAN CORPUSCULAR HGB CONC 33.6 g/dl (31.0-37.0); MEAN PLATELET VOLUME 9.2 fl (7.0-11.0); RBC 2.95 10^6/uL (3.5-6.1); RED CELL DISTRIBUTION WIDTH 13.6 % (11.5-14.5); WHITE BLOOD COUNT 9.1 10^3/ul (4.5-11.0)
[2017-11-04 07:26] LABS: ALB/GLOB RATIO 0.9 (1.1-1.8); ALBUMIN 2.6 g/dL (3.0-4.8); ALT/SGPT 29 U/L (7-56); AST/SGOT 28 U/L (17-59); BLOOD UREA NITROGEN 12 mg/dL (7-21); CALCIUM 8.5 mg/dL (8.4-10.5); GFR AFRICAN-AMERICAN > 60; GFR NON-AFRICAN AMERICAN > 60
[2017-11-04] MEDS: Sodium Chloride 0.9% 1,000 ML IV SCH (08:22)
[2017-11-04] MEDS: Potassium Chloride 20 mEq/15 ml LIQ UD PO SCH ×2 (08:22→17:07)
--- NOTE | 2017-11-04 08:26 | HP ---
LOCATION: The patient is in TCU, room 319. HISTORY OF PRESENT ILLNESS: The patient is a transfer from the Acute side to the TCU for deconditioning, continuation of IV antibiotics, continuation of physical therapy, and continue gastrointestinal feeding through the PEG tube until the patient is able to become independent as far as activities of daily living of concern. The patient still has significant issues, which is following post radiation for stage IV laryngeal carcinoma, was admitted with shortness of breath and more importantly, increasing pain secondary to progressive infection involving the nape of the neck, the left shoulder, the left arm, and the left chest wall that is progressively worsening since the weekend. The patient got admitted through the Emergency Room on Sunday of this week. The patient is currently in the TCU and currently is getting IV antibiotics consisting of cefepime and Zyvox - along with that, he has been getting topical Silvadene mixed with lidocaine to the wounds and the infected area in the left shoulder, left arm and left chest wall. The patient is also on PEG feedings. He is just on pureed mechanical diet, but he is not taking anything at this point in time - the patient does not like it. He has been taking clear liquids for now by mouth. PHYSICAL EXAMINATION GENERAL: The patient is examined in bed. VITAL SIGNS: Stable. Blood pressure is 90/53, T-max is 98.4, respirations 16 with a pulse of 68. HEENT: Head is normocephalic, atraumatic. Conjunctivae are pale. Sclerae is anicteric. Examination of the oropharynx reveals the patient to be edentulous. The patient currently is having significant issues with his tongue, which is dry and coated. No other pharyngeal lesions per se are seen. The patient's mouth is on the dry side - difficulty in speaking because of the dryness of the mouth. NECK: Supple. Radiation changes are noted on the left side of his neck extending to the left anterior chest wall. In addition to this, there are areas of hyperpigmentation, superinfection and eschars and scabs related to ongoing infection that is being treated with IV antibiotics. There is no neck vein distention. No significant adenopathy. LUNGS: Relatively clear to percussion and auscultation. HEART: PMI within the fifth intercostal space, inside the midclavicular line. S1 and S2 are normal. No gallop or murmur is heard. ABDOMEN: Soft, nontender. No rebound, rigidity, or guarding is noted. The patient has a PEG tube in place. The site of the PEG tube appears to be clean without any infection. He is on Jevity, on continuous reading at 40 mL an hour. EXTREMITIES: Lower extremities were examined, shows no lower extremity cyanosis, clubbing or edema. The patient's pulses are 1-2+ bilaterally on examination of the lower extremities. Upper extremities: The patient is status post left shoulder replacement surgery. He has lost lots of muscle mass and you can actually see the underlying skeleton. NEUROLOGIC: Reveals higher functions to be normal. No focal deficits are noted. The patient is awake, alert, and oriented. Examination also reveals that the patient is profoundly weak, but he was able to go to therapy today in the gym and they were doing exercise for him with assistance from the therapist while he was in the wheelchair. MEDICATIONS: The patient's medications were reviewed and currently he is on a combination of medicines including lidocaine and Silvadene cream to the nape of the neck, left shoulder, left arm, and left anterior chest wall and the mupirocin is being applied to the PEG tube site area. The patient has been getting Dilaudid 1 mg IV q. 4 hours p.r.n. for pain over the left chest wall where he has the skin eruptions. He is on Ecotrin. He has been put on Famvir p.o. 1000 mg twice a day. He is on Lipitor, Lopressor, Mycostatin, Plavix, potassium, Protonix and he is on Zyvox as well. In addition to this, the patient is on normal saline at 100 mL an hour. LABORATORY DATA: Was noted from yesterday before being transferred. White count is 11.9, hemoglobin 8.8 with platelet count 277,000. Sodium has been slightly decreasing - 130 down to 124, potassium is normalized to 4, BUN is 21 with a creatinine of 0.9. Calcium, magnesium, and phosphorus are normal. Liver enzymes are normal. Albumin is 2.8. TSH was mildly elevated; however, free T4 is normal. Cortisol levels are 28, which is slightly above normal. Urine sodium was 170 with an osmolality of 462. ASSESSMENT NOTES AND PLAN: The patient has stage LALO supraglottic laryngeal carcinoma, status post Erbitux-based chemotherapy and radiation, completed about four weeks ago, currently in the hospital for hyponatremia related to multiple factors including a combination of hydrochlorothiazide and Zaroxolyn, and he is on IV fluids. History of hypertension - blood pressure has been on the lower range. The patient has infection involving the skin on the left neck, chest, and upper wall. The patient has biopsy-proven and culture-proven methicillin-resistant Staphylococcus aureus in the cultures from the skin area, taken on 10/02/2017 which is sensitive to Zyvox and he is on maximum Zyvox for the same. He has been given Famvir with the added concern that he had just completed radiation, and many of our patients who are on radiation and immunosuppressive therapy can come down with herpetic infections as well. The patient has a combination of this and dermatitis related to post-radiation. History of chronic obstructive pulmonary disease secondary to history of smoking, history of hyperlipidemia - on statin therapy, atherosclerotic cardiovascular disease with coronary artery disease with recent elevation of troponin, being managed medically. Anemia of chronic disease with hemoglobin dropping from multiple comorbid factors, plan for which is to give him blood transfusion. The patient is not a candidate for TEDDY as ESAs can be detrimental to the patient's with head and neck cancer as it can cause progression of cancer. Plan is to continue IV fluids, continue Jevity, we will repeat swallowing studies. We will get a speech pathologist and dietitian to see the patient to see what he could get by mouth that he can take, maybe Ensure that is better tasting than Jevity. In the meantime, we will continue Jevity feeding at 40 mL an hour so that he can get additional nutrition. The patient also may need an evaluation for his abnormal thyroid when we are working at the same time from an ENT point of view. We will also get input from the ENT whether the patient is a candidate of bedside scoping to see what needs to be done. The patient is being seen by Ren[facility] to manage as far as his low sodiums are concerned. A detailed talk with the patient's two sons explained to the patient at length and he is hard of hearing. Told him of all the problems that we are encountering at this time and we are trying to help him as best as we can to circumvent some of these issues. The patient and his family are cognizant of the fact given his age that we have to be careful in probably giving him medications. On his prior admission, the patient also had kidney dysfunction, so we are being careful and avoiding some of the drugs that could be nephrotoxic. Time spent with the patient and the family was 80 minutes, out of which more than 50 percent of the time was spent in communicating with the patient and his two sons who are at the bedside. The patient will continue physical therapy for deconditioning, continue his gastrointestinal feedings until he is completely improved from his point as far as the oropharynx is concerned and his ability to swallow is concerned. The patient may also need therapy directed towards reconditioning of his oropharyngeal muscles so that he can swallow better. Mustapha Smith MD
[2017-11-04] MEDS: Nystatin 100,000 Units/gm Cream(15 gm) TOP SCH ×3 (09:17→17:04)
[2017-11-04] MEDS: Silver Sulfadiazine 1% Cream (25 gm) TP SCH ×2 (09:18→17:03)
[2017-11-04] MEDS: Tolvaptan 15 MG TAB PO SCH (10:23)
--- NOTE | 2017-11-04 10:40 | PN ---
DATE: SUBJECTIVE: The patient is currently seen in the TCU, lying comfortable supine in bed. He remains on IV normal saline. He continues on IV antibiotic therapy for his left MRSA, left shoulder cellulitis. The patient continues to remain hyponatremic despite receiving normal saline. MEDICATIONS: Medication list reviewed. The patient is on Bactroban, Dilaudid p.r.n., Ecotrin, Famvir, Lipitor, Lopressor, Mycostatin cream, Plavix, potassium chloride orally, Protonix, Silvadene, normal saline, lidocaine 2% p.r.n., Zofran p.r.n. and Zyvox. OBJECTIVE VITAL SIGNS: Blood pressure 141/67, temperature 98.4, respiratory rate is 20 with a pulse ox of 93%. HEENT: Shows him to be normocephalic, atraumatic. Conjunctivae remain pale. Sclerae are nonicteric. NECK: Supple. Positive radiation changes with hyperpigmentation. Erythema of the left side of his neck extending down to the left anterior chest wall. Areas of superinfection are improving. No neck vein distention. CHEST: Clear to auscultation and percussion. No rales, rhonchi or wheezing. CARDIOVASCULAR: Shows a regular rate and rhythm without murmurs, rubs or gallops. ABDOMEN: Soft. Bowel sounds normal. The patient has a PEG tube in place and is receiving Jevity at 40 mL an hour. EXTREMITIES: Show no lower extremity cyanosis, clubbing or edema with slightly decreased pulses bilaterally. LABORATORY DATA AND IMAGING: CBC, white blood cell count today 9.1, hemoglobin 8.4 with platelet count of 273,000. Chemistries continued to show a sodium which is low at 126, potassium 3.5, chloride 94 with a BUN of 12 with a creatinine of 0.7. Liver enzymes are normal. Albumin is 2.6. ASSESSMENT: 1. Hyponatremia. The patient's urine studies are consistent with that of syndrome of inappropriate antidiuretic hormone . The patient's sodium level was not coming up as expected with normal saline. As discussed in yesterday's note, I will start the patient on tolvaptan 15 mg, the patient may receive anywhere from 1 to 3 doses pending his response. In the interim, we will continue using a small amounts of water to flush his percutaneous endoscopic gastrostomy tube feedings and I can decrease his normal saline rate down to 60 mL an hour and I will add potassium chloride to the IV fluid. 2. History of stage IV laryngeal cancer, on outpatient radiation therapy and Erbitux. 3. History of hypertension. Blood pressure control is acceptable. 4. Dermatitis of the left neck and left upper chest wall. This has been positive for methicillin-resistant Staphylococcus aureus and the patient continues on the antibiotic therapy. 5. History of chronic obstructive pulmonary disease secondary to long history of cigarette smoking. 6. History of hyperlipidemia, on diet and statin therapy. 7. History of atherosclerotic heart disease, status post coronary artery bypass graft surgery. The patient is stable. 8. History of anemia with hemoglobin level of 8.4. This is all secondary to underlying malignancy. PLAN: 1. Continue IV fluid, but decrease dose and add potassium. 2. Continue fluid restriction. 3. As noted above, thyroid levels are borderline. Perhaps Endocrine evaluation. 4. Continue to monitor labs on a daily basis in light of the fact that the patient is receiving tolvaptan. Camilo Trammell MD
--- NOTE | 2017-11-04 14:22 | PN ---
DATE: 11/04/2017 SUBJECTIVE: The patient is in bed, in no acute distress. He was seen early this morning. PHYSICAL EXAMINATION: VITAL SIGNS: Temperature is 98, blood pressure is 141/60, respiratory rate of 20, heart rate of 97. HEENT: Examination of HEENT is unremarkable. NECK: Supple. LUNGS: Have decreased breath sounds. HEART: Normal S1, S2. ABDOMINAL: Soft. LABORATORY EXAMINATION: Reveals the patient's white count is 9.1. BUN of 12, creatinine of 0.7. Microbiology is noted and review of orders reveals the patient to be on p.o. Zyvox and p.o. Famvir. ASSESSMENT AND PLAN: An 87-year-old male with past medical history significant for laryngeal cancer, coronary artery disease and with developing neck cellulitis secondary to radiation and dermatitis and cellulitis with methicillin-resistant Staphylococcus aureus and admitted here in this admission to the acute care with diagnoses of dyspnea on exertion, laryngeal cancer and transferred to transitional care with the superinfection of left-sided neck methicillin-resistant Staphylococcus aureus cellulitis. Currently, the patient is on p.o. Zyvox and p.o. acyclovir day #6 with complete 7-10 days. Cuauhtemoc Olivera MD
[2017-11-04] MEDS: Morphine 2 mg/ml ISec IVP PRN ×2 (16:36→22:19)
[2017-11-04] MEDS: Lidocaine 2% Jelly (30 ml) TOP PRN (16:41)
[2017-11-05] MEDS: Morphine 2 mg/ml ISec IVP PRN ×3 (02:44→19:28)
[2017-11-05] MEDS: Levothyroxine 25 MCG TAB PO SCH (05:53)
[2017-11-05 06:57] LABS: HEMOGLOBIN 8.4 g/dL (14.0-18.0); MEAN CELL VOLUME 85.6 fl (80.0-105.0); MEAN CORPUSCULAR HEMOGLOBIN 28.9 pg (25.0-35.0); MEAN CORPUSCULAR HGB CONC 33.7 g/dl (31.0-37.0); MEAN PLATELET VOLUME 8.7 fl (7.0-11.0); RBC 2.91 10^6/uL (3.5-6.1)
[2017-11-05 07:34] LABS: FREE T4 1.19 ng/dL (0.78-2.19); T4 5.5 ug/dL (5.5-11.0)
[2017-11-05 07:38] LABS: ALB/GLOB RATIO 0.9 (1.1-1.8); ALBUMIN 2.7 g/dL (3.0-4.8); ALT/SGPT 27 U/L (7-56); AST/SGOT 40 U/L (17-59); BLOOD UREA NITROGEN 11 mg/dL (7-21); CALCIUM 8.7 mg/dL (8.4-10.5); GFR AFRICAN-AMERICAN > 60; GFR NON-AFRICAN AMERICAN > 60
[2017-11-05] MEDS: Potassium Chloride 20 mEq/15 ml LIQ UD PO SCH ×2 (08:13→18:01)
--- NOTE | 2017-11-05 08:46 | CP.PCM.PN ---
Subjective - Date & Time of Evaluation Date of Evaluation: 11/05/17 Time of Evaluation: 08:39 - Subjective Subjective: Surgery Progress Note for Dr Coronel: Pt seen and examined at bedside. No acute events overnight. Pt reports pain at the skin site. Denies fever, chills, nausea, vomiting, abdominal pain. Objective - Vital Signs/Intake and Output Vital Signs (last 24 hours): Temp Pulse Resp BP Pulse Ox 99.3 F 101 H 20 134/67 93 L 11/04/17 17:30 11/05/17 08:12 11/04/17 17:30 11/05/17 08:12 11/04/17 17:30 - Medications Medications: Current Medications Aspirin (Ecotrin) 81 mg PO 0800 [facility] PRN Reason: Protocol Last Admin: 11/05/17 08:12 Dose: 81 mg Atorvastatin Calcium (Lipitor) 10 mg PO DIN [facility] PRN Reason: Protocol Last Admin: 11/04/17 17:02 Dose: 10 mg Clopidogrel Bisulfate (Plavix) 75 mg PEG DAILY [facility] Last Admin: 11/04/17 09:18 Dose: 75 mg Famciclovir (Famvir) 500 mg PO Q12 [facility] PRN Reason: Protocol Last Admin: 11/04/17 22:14 Dose: 500 mg Potassium Chloride 10 meq/ (Sodium Chloride) 1,005 mls @ 60 mls/hr IV .[id number] [facility] Last Admin: 11/05/17 02:46 Dose: 60 mls/hr Levothyroxine Sodium (Synthroid) 25 mcg PO 0600 [facility] Last Admin: 11/05/17 05:53 Dose: 25 mcg Lidocaine HCl (Xylocaine 2%) 1 ea TOP TID PRN; Protocol PRN Reason: Pain, moderate (4-7) Last Admin: 11/04/17 16:41 Dose: 1 applic Linezolid (Zyvox) 600 mg PO BID [facility] PRN Reason: Protocol Stop: 11/06/17 18:01 Last Admin: 11/04/17 17:02 Dose: 600 mg Metoprolol Tartrate (Lopressor) 25 mg PO 0800,1800 [facility] PRN Reason: Protocol Last Admin: 11/05/17 08:12 Dose: 25 mg Morphine Sulfate (Morphine) 2 mg IVP Q4H PRN; Protocol PRN Reason: Pain, severe (8-10) Last Admin: 11/05/17 02:44 Dose: 2 mg Mupirocin (Bactroban Ointment) 1 gm TOP BID [facility] PRN Reason: Protocol Last Admin: 11/04/17 17:03 Dose: 1 oin Nystatin (Mycostatin Cream) 0 ea TOP TID [facility] Last Admin: 11/04/17 17:04 Dose: 1 cre Ondansetron HCl (Zofran Inj) 4 mg IVP Q4H PRN; Protocol PRN Reason: Nausea/Vomiting Last Admin: 11/03/17 22:08 Dose: 4 mg Pantoprazole Sodium (Protonix Inj) 40 mg IVP 0600 [facility] PRN Reason: Protocol Last Admin: 11/05/17 05:10 Dose: 40 mg Potassium Chloride (Potassium Chloride Oral Soln) 20 meq PO 0800,1800 [facility] PRN Reason: Protocol Last Admin: 11/05/17 08:13 Dose: 20 meq Silver Sulfadiazine (Silvadene 1% 25 Gm) 0 gm TP BID [facility] PRN Reason: Protocol Last Admin: 11/04/17 17:03 Dose: 25 gm Tolvaptan (Samsca) 15 mg PO DAILY [facility] Stop: 11/06/17 09:32 Last Admin: 11/04/17 10:23 Dose: 15 mg - Labs Labs: 11/05/17 06:35 11/05/17 06:35 - Additional Findings Additional findings: - Constitutional Appears: Cachectic, Chronically Ill - Head Exam Head Exam: ATRAUMATIC, NORMAL INSPECTION, NORMOCEPHALIC - Eye Exam Eye Exam: EOMI, Normal appearance, PERRL Pupil Exam: NORMAL ACCOMODATION, PERRL - ENT Exam ENT Exam: Mucous Membranes Moist - Neck Exam Neck Exam: Tenderness. absent: Full ROM Additional comments: Dry, excoriated, erythematous skin. - Cardiovascular Exam Cardiovascular Exam: REGULAR RHYTHM - GI/Abdominal Exam GI & Abdominal Exam: Soft, Normal Bowel Sounds. absent: Distended, Tenderness - Neurological Exam Neurological Exam: Alert, Awake, Oriented x3 - Psychiatric Exam Psychiatric exam: Normal Affect, Normal Mood - Skin Skin Exam: Abrasion, Dry, Erythema, Intact, Rash, Warm Assessment and Plan - Assessment and Plan (Free Text) Assessment: 87 year old male with skin lesions and rash on upper chest and neck s/p radiation for laryngeal cancer: -Possible biopsy today at bedside. -Apply ointment PRN -Pain control Will discuss with Dr. Coronel
--- NOTE | 2017-11-05 08:54 | CON ---
DATE: ENDOCRINOLOGY CONSULT LOCATION: Room 319, in TCU. HISTORY OF PRESENT ILLNESS: This is an 87-year-old male with known history of stage IV laryngeal carcinoma and had recent radiation therapy, currently on IV antibiotic management for radiation-related infection in the neck and upper back and shoulder area and has been transferred to TCU for deconditioning and ongoing physical therapy. He is being referred now for endocrine evaluation of abnormal thyroid function studies. PAST MEDICAL HISTORY: As mentioned above, history of stage IV laryngeal carcinoma and underwent radiation therapy in its full course as noted thereof. He also has had dysphagia and odynophagia and has PEG tube feedings ongoing at this time for nutritional and caloric supplementation. History of hypertension and dyslipidemia, history of undernutrition and progressive weight loss with generalized body weakness as noted. FAMILY HISTORY: Positive for hypertension and heart disease. SOCIAL HISTORY: The patient has a supportive family. No known substance use. REVIEW OF SYSTEMS: As mentioned above. Admits to generalized body weakness with easy fatigability and tiredness and suboptimal energy level. Also, admits to dizziness and lightheadedness, worse on the day of admission. No chest pains, palpitations, or PND since His oral intake, however, has been very poor and suboptimal and has required a PEG placement for nutritional supplementation thereof. No recent alterations of bowel or urinary patterns. PHYSICAL EXAMINATION: GENERAL: This is an asthenic and chronically ill male, in no apparent distress. VITAL SIGNS: Blood pressure of 140/80, pulse of 70 beats per minute and regular, temperature 99, respirations 20, height is 5 feet 9 inches, weight is 112 pounds. HEENT: Head normocephalic. Eyes anicteric with pink conjunctivae. Funduscopy not possible at this time. Ears, nose, and throat otherwise normal. NECK: Supple. Thyroid gland is normal size. No carotid bruits or any cervical adenopathy. CARDIOPULMONARY: Some adynamic precordium. S1, S2 are rapid and regular. LUNGS: Clear to auscultation. ABDOMEN: Flat, soft with positive bowel sounds. EXTREMITIES: No peripheral edema. Pulses are +2 bilaterally. SKIN: The area in the left neck , shoulder, and upper back shows eschar formation and hyperpigmentation and excoriation as noted thereof. LABORATORY DATA: His thyroid study showed a T4 of 6.2 mcg/dL with a TSH of 13.62 and his chemistries showed a BUN of 12, sodium 126, potassium 3.5, chloride 94, CO2 of 27, glucose 91, and creatinine 0.7. His albumin level is 2.6. 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 There is also evidence of undernutrition and hypoalbuminemia, currently with percutaneous endoscopic gastrostomy tube feedings ongoing as noted thereof. PLAN OF MANAGEMENT: We will start him on a very low-dose oral levothyroxine replacement therapy given as 25 mcg once daily before breakfast in the morning as ordered. We will obtain a total and free T4 and TSH tomorrow with a thyroid peroxidase antibody to confirm and/or indicate the presence of underlying thyroid autoimmunity. 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 We will obtain serial chemistries and supplement accordingly as needed. We will follow. Michelle Richardson MD
[2017-11-05] MEDS: Nystatin 100,000 Units/gm Cream(15 gm) TOP SCH ×3 (10:35→17:49)
[2017-11-05] MEDS: Silver Sulfadiazine 1% Cream (25 gm) TP SCH ×2 (10:38→17:49)
[2017-11-05] MEDS: Tolvaptan 15 MG TAB PO SCH (11:06)
--- NOTE | 2017-11-05 11:13 | CP.PCM.PN ---
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 Patient seen and examined at bedside in the TCU. Patient acutely hoarse, not which he reports began yesterday, and is barely able to speak above a whisper. Is reporting increased pain in his left shoulder and back at site of cellulitis , and it is notable that there are several scattered spots of dried blood underlying the sites of his shoulder, neck, and back where the cellulitis is present on his bed sheets. He denies shortness of breath or emesis, but remaining ROS in unobtainable due to his hoarseness. Objective - Vital Signs/Intake and Output Vital Signs (last 24 hours): Temp Pulse Resp BP Pulse Ox 99.3 F 101 H 20 134/67 93 L 11/04/17 17:30 11/05/17 08:12 11/04/17 17:30 11/05/17 08:12 11/04/17 17:30 - Medications Medications: Current Medications Aspirin (Ecotrin) 81 mg PO 0800 [facility] PRN Reason: Protocol Last Admin: 11/05/17 08:12 Dose: 81 mg Atorvastatin Calcium (Lipitor) 10 mg PO DIN [facility] PRN Reason: Protocol Last Admin: 11/04/17 17:02 Dose: 10 mg Clopidogrel Bisulfate (Plavix) 75 mg PEG DAILY [facility] Last Admin: 11/04/17 09:18 Dose: 75 mg Famciclovir (Famvir) 500 mg PO Q12 [facility] PRN Reason: Protocol Last Admin: 11/04/17 22:14 Dose: 500 mg Potassium Chloride 10 meq/ (Sodium Chloride) 1,005 mls @ 60 mls/hr IV .[id number] [facility] Last Admin: 11/05/17 02:46 Dose: 60 mls/hr Levothyroxine Sodium (Synthroid) 25 mcg PO 0600 [facility] Last Admin: 11/05/17 05:53 Dose: 25 mcg Lidocaine HCl (Xylocaine 2%) 1 ea TOP TID PRN; Protocol PRN Reason: Pain, moderate (4-7) Last Admin: 11/04/17 16:41 Dose: 1 applic Linezolid (Zyvox) 600 mg PO BID [facility] PRN Reason: Protocol Stop: 11/06/17 18:01 Last Admin: 11/04/17 17:02 Dose: 600 mg Metoprolol Tartrate (Lopressor) 25 mg PO 0800,1800 [facility] PRN Reason: Protocol Last Admin: 11/05/17 08:12 Dose: 25 mg Morphine Sulfate (Morphine) 2 mg IVP Q4H PRN; Protocol PRN Reason: Pain, severe (8-10) Last Admin: 11/05/17 02:44 Dose: 2 mg Mupirocin (Bactroban Ointment) 1 gm TOP BID [facility] PRN Reason: Protocol Last Admin: 11/05/17 10:36 Dose: 1 oin Nystatin (Mycostatin Cream) 0 ea TOP TID [facility] Last Admin: 11/05/17 10:35 Dose: 1 cre Ondansetron HCl (Zofran Inj) 4 mg IVP Q4H PRN; Protocol PRN Reason: Nausea/Vomiting Last Admin: 11/03/17 22:08 Dose: 4 mg Pantoprazole Sodium (Protonix Inj) 40 mg IVP 0600 [facility] PRN Reason: Protocol Last Admin: 11/05/17 05:10 Dose: 40 mg Potassium Chloride (Potassium Chloride Oral Soln) 20 meq PO 0800,1800 [facility] PRN Reason: Protocol Last Admin: 11/05/17 08:13 Dose: 20 meq Silver Sulfadiazine (Silvadene 1% 25 Gm) 0 gm TP BID [facility] PRN Reason: Protocol Last Admin: 11/05/17 10:38 Dose: 25 gm Tolvaptan (Samsca) 15 mg PO DAILY [facility] Stop: 11/06/17 09:32 Last Admin: 11/04/17 10:23 Dose: 15 mg - Labs Labs: 11/05/17 06:35 11/05/17 06:35 - Additional Findings Additional findings: - Constitutional Appears: Non-toxic, No Acute Distress, Cachectic (very cachetic, can see sternotomy wires from CABG pushing up through skin at sterum), Chronically Ill - Head Exam Head Exam: ATRAUMATIC, NORMAL INSPECTION, NORMOCEPHALIC - Eye Exam Eye Exam: EOMI, Normal appearance. absent: Conjunctival injection, Scleral icterus Pupil Exam: absent: Irregular, Unequal - ENT Exam ENT Exam: Mucous Membranes Dry Additional comments: Acutely worsened Hoarseness, only able to speak at a level of a barely intelligible whisper No petechiae or active bleeding sources identified No exudates or candidiasis appreciated Dark round mass visualized at left posterior aspect of patient's posterior pharynx, unable to fully visualize - Neck Exam Neck exam: Positive for: Full Rom - Respiratory Exam Respiratory Exam: Mild inspiratory ronchi left upper field but otherwise clear to auscultation, NORMAL BREATHING PATTERN. absent: Accessory Muscle Use, Rales , Rhonchi, Wheezes - Cardiovascular Exam Cardiovascular Exam: REGULAR RHYTHM, RRR, +S1, +S2. absent: Bradycardia, Tachycardia, Irregular Rhythm, +S4 - GI/Abdominal Exam GI & Abdominal Exam: Normal Bowel Sounds, Soft. absent: Diminished Bowel Sounds , Distended, Firm, Hyperactive Bowel Sounds, Hypoactive Bowel Sounds, Rigid, Tenderness - Extremities Exam Extremities exam: Positive for: pedal pulses present. Negative for: calf tenderness, pedal edema, tenderness Additional comments: mildly waxy-like skin at bilateral LE from extending from feet to ankles distal LE warm to palpation - Neurological Exam Neurological exam: Alert, Oriented x3 Additional comments: following all commands appropriately, moving all extremities spontaneously motor appears grossly intact and equal bilaterally - Psychiatric Exam Psychiatric exam: Normal Affect, Normal Mood - Skin Skin Exam: Dry, Intact, Normal Color, Warm (Except as listed below) Additional comments: Sternotomy wires visualized pushing up skin at sternum, right chest port easily visualized through skin, but neither with breakdown or breakthrough of skin Left sided rash/cellulitis, patchy, extending from left posterior neck to left arm, shoulder, and left superior chest wall involvement. 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 He has since been transferred to TCU for reconditioning while receiving additional antibiotics. 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 -ID following, appreciate their recs; pt currently on Linezolid and Bactro -Continue ASA and Plavix given hx of CAD s/p CABG, continue Lipitor -continue metolazone, Metoprolol -Continue Protonix for GI ppx -[employer] consulted for tube feeding until swallow study passed, would rec 7-8 cans of Jevity per day, but patient reports only able to tolerate 4-5 per day -Echo obtained, notable for EF 63%, mild aortic sclerosis, otherwise unremarkable -Swallow study passed, advanced to finely chopped w nectar thick liq as per Speech Therapist -GI consulted for difficulty swallowing, appreciate their recs -Hyponatremic, Nephro consulted, appreciate their recs; 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 Smith.
--- NOTE | 2017-11-05 14:48 | CP.PCM.PN ---
Subjective - Date & Time of Evaluation Date of Evaluation: 11/05/17 Time of Evaluation: 12:45 - Subjective Subjective: Left neck and left chest area is feeling better, no fevers. Objective - Vital Signs/Intake and Output Vital Signs (last 24 hours): Temp Pulse Resp BP Pulse Ox 99.3 F 101 H 20 134/67 93 L 11/04/17 17:30 11/05/17 08:12 11/04/17 17:30 11/05/17 08:12 11/04/17 17:30 - Medications Medications: Current Medications Aspirin (Ecotrin) 81 mg PO 0800 [facility] PRN Reason: Protocol Last Admin: 11/05/17 08:12 Dose: 81 mg Atorvastatin Calcium (Lipitor) 10 mg PO DIN [facility] PRN Reason: Protocol Last Admin: 11/04/17 17:02 Dose: 10 mg Clopidogrel Bisulfate (Plavix) 75 mg PEG DAILY [facility] Last Admin: 11/04/17 09:18 Dose: 75 mg Famciclovir (Famvir) 500 mg PO Q12 [facility] PRN Reason: Protocol Last Admin: 11/04/17 22:14 Dose: 500 mg Potassium Chloride 10 meq/ (Sodium Chloride) 1,005 mls @ 60 mls/hr IV .[id number] [facility] Last Admin: 11/05/17 02:46 Dose: 60 mls/hr Levothyroxine Sodium (Synthroid) 25 mcg PO 0600 [facility] Last Admin: 11/05/17 05:53 Dose: 25 mcg Lidocaine HCl (Xylocaine 2%) 1 ea TOP TID PRN; Protocol PRN Reason: Pain, moderate (4-7) Last Admin: 11/04/17 16:41 Dose: 1 applic Linezolid (Zyvox) 600 mg PO BID [facility] PRN Reason: Protocol Stop: 11/06/17 18:01 Last Admin: 11/04/17 17:02 Dose: 600 mg Metoprolol Tartrate (Lopressor) 25 mg PO 0800,1800 [facility] PRN Reason: Protocol Last Admin: 11/05/17 08:12 Dose: 25 mg Morphine Sulfate (Morphine) 2 mg IVP Q4H PRN; Protocol PRN Reason: Pain, severe (8-10) Last Admin: 11/05/17 02:44 Dose: 2 mg Mupirocin (Bactroban Ointment) 1 gm TOP BID [facility] PRN Reason: Protocol Last Admin: 11/04/17 17:03 Dose: 1 oin Nystatin (Mycostatin Cream) 0 ea TOP TID [facility] Last Admin: 11/04/17 17:04 Dose: 1 cre Ondansetron HCl (Zofran Inj) 4 mg IVP Q4H PRN; Protocol PRN Reason: Nausea/Vomiting Last Admin: 11/03/17 22:08 Dose: 4 mg Pantoprazole Sodium (Protonix Inj) 40 mg IVP 0600 [facility] PRN Reason: Protocol Last Admin: 11/05/17 05:10 Dose: 40 mg Potassium Chloride (Potassium Chloride Oral Soln) 20 meq PO 0800,1800 [facility] PRN Reason: Protocol Last Admin: 11/05/17 08:13 Dose: 20 meq Silver Sulfadiazine (Silvadene 1% 25 Gm) 0 gm TP BID [facility] PRN Reason: Protocol Last Admin: 11/04/17 17:03 Dose: 25 gm Tolvaptan (Samsca) 15 mg PO DAILY [facility] Stop: 11/06/17 09:32 Last Admin: 11/04/17 10:23 Dose: 15 mg - Labs Labs: 11/05/17 06:35 11/05/17 06:35 - Constitutional Appears: Cachectic, Chronically Ill - Head Exam Head Exam: NORMAL INSPECTION - Neck Exam Neck Exam: absent: Meningismus Additional comments: left chest and neck area with decreasing erythema, improving lesions - Respiratory Exam Respiratory Exam: Decreased Breath Sounds - Cardiovascular Exam Cardiovascular Exam: +S1, +S2 - GI/Abdominal Exam GI & Abdominal Exam: Soft. absent: Tenderness Assessment and Plan - Assessment and Plan (Free Text) Plan: Assessment superinfection of left side of neck with bacteria, R/O viral, fungal or mycobacterial infection histroy of radiation dermatitis on left side of neck with superimposed cellulitis, growing MRSA acute renal failure, R/O Vancomycin-induced nephrotoxicity, slowly improving throat cancer S/P port placement on chemotherapy and radiation therapy S/P PEG placement Plan continue Zyvox and Bactroban ointment day 7, and famvir; wound cx showing MRSA; would suggest skin biopsy to be sent for fungal, mycobacterial cultures as well overall prognosis is poor
--- NOTE | 2017-11-05 15:35 | PN ---
DATE: SUBJECTIVE: The patient is currently seen with family members in the room. He appears to be stable. He remains on PEG tube feedings. His sodium level has significantly improved with the start of tolvaptan therapy he has received a total of 2 doses. The patient also continues on normal saline at 60 mL an hour. MEDICATIONS: Medication list reviewed. The patient is currently on Mupirocin, Ecotrin, Famvir, Lipitor, Lopressor, morphine p.r.n., Mycostatin cream, Plavix, IV normal saline with 10 mEq of KCl, oral potassium chloride, Protonix, tolvaptan 15 mg, this is day #2. Silvadene, Synthroid, Xylocaine, Zofran p.r.n. and Zyvox. OBJECTIVE: VITAL SIGNS: Blood pressure is 134/67, temperature 99.3, respiratory rate is 20 with a pulse of 101. HEENT: Normocephalic, atraumatic. Conjunctivae remain pale. Sclerae nonicteric. NECK: Supple. Positive radiation changes with hyperpigmentation and erythema of left side of neck extending down to the left anterior chest wall. Areas of superinfection appeared to be improving. No neck vein distention. CHEST: Clear to auscultation and percussion. No rales, rhonchi or wheezing. CARDIOVASCULAR: Shows a regular rate and rhythm without murmurs, rubs or gallops. ABDOMEN: Soft. Bowel sounds normal. The patient has a PEG tube in place and is receiving Jevity at 40 mL an hour. EXTREMITIES: No lower extremity cyanosis, clubbing or edema. LABORATORY DATA AND IMAGING: CBC today: White blood cell count 8.0; hemoglobin 8.4, stable; platelet count is 272,000. Chemistry shows significant improvement in sodium from 126 to 135. Potassium does remain low at 3.4. BUN is 11, creatinine 0.7. Calcium, phosphorus, magnesium levels are all normal. Free T4 level was normal, T4 level was normal. However, TSH level was 8.23. ASSESSMENT: 1. Hyponatremia, in part secondary to syndrome of inappropriate antidiuretic hormone as the patient has stage IV laryngeal cancer. He will continue on low-volume IV fluid normal saline hydration. He will continue on minimal amount of free water flushes of his percutaneous endoscopic gastrostomy feedings and he will likely complete tolvaptan after tomorrow's dose. 2. Possible hypothyroidism. The patient had been seen by Endocrinology and started on low-dose thyroid replacement hormone therapy. 3. History of stage IV laryngeal cancer with radiation therapy and Erbitux. 4. History of hypertension. Blood pressure control is acceptable. 5. Dermatitis of the left neck and left upper chest wall. This is positive for methicillin-resistant Staphylococcus aureus and the patient is continued on the antibiotic therapy. 6. Borderline hypokalemia. We will continue oral potassium supplements and I will increase the potassium in his IV fluids. 7. History of chronic obstructive pulmonary disease secondary to long history of cigarette smoking. 8. History of hyperlipidemia, on diet and statin therapy. 9. History of atherosclerotic heart disease, status post coronary artery bypass graft surgery. The patient is stable. 10. History of anemia, in part secondary to underlying malignancy. PLAN: 1. I will continue IV fluid hydration, perhaps one more day. 2. The patient to complete a total of 3 dose of tolvaptan, tomorrow's dose being the last. 3. Agree with Endocrinology's recommendation of starting low-dose thyroid replacement therapy. 4. Continue to minimize p.o. fluid hydration, especially through the PEG tube. Camilo Trammell MD
--- NOTE | 2017-11-05 17:59 | PN ---
DATE: ENDOCRINOLOGY FOLLOWUP NOTE LOCATION: Room 319. SUBJECTIVE: This is an 87-year-old male with recent transfer to the TCU for ongoing physical therapy and IV antibiotic management and is being followed closely for metabolic management. The patient has stage IV laryngeal carcinoma and received radiation therapy as noted thereof. His oral intake is quite suboptimal and variable with marked generalized body weakness and easy fatigability and tiredness as noted thereof. His latest chemistry showed a BUN of 11, sodium 135, potassium 3.4, chloride 100, CO2 of 30, glucose 98, and creatinine 0.7. The repeat thyroid study showed a T4 of 5.5 with a free T4 of 1.19 and a TSH of 8.23 indicative of early hypothyroidism. 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 We will continue the low-dose levothyroxine given as 25 mcg once daily in the morning as ordered. We will titrate incrementally as indicated to optimize metabolic control. We will obtain serial thyroid studies and titrate his dose regimen accordingly. We will also obtain serial chemistries and supplement accordingly as needed. We will follow. Michelle Richardson MD
[2017-11-06] MEDS: Morphine 2 mg/ml ISec IVP PRN ×3 (00:02→15:30)
[2017-11-06] MEDS: Levothyroxine 25 MCG TAB PO SCH (06:00)
[2017-11-06 06:37] LABS: HEMOGLOBIN 8.6 g/dL (14.0-18.0); MEAN CORPUSCULAR HEMOGLOBIN 28.6 pg (25.0-35.0); MEAN CORPUSCULAR HGB CONC 32.8 g/dl (31.0-37.0); MEAN PLATELET VOLUME 8.6 fl (7.0-11.0); RBC 3.01 10^6/uL (3.5-6.1); RED CELL DISTRIBUTION WIDTH 14.3 % (11.5-14.5); WHITE BLOOD COUNT 7.7 10^3/ul (4.5-11.0)
[2017-11-06 07:26] LABS: ALB/GLOB RATIO 0.9 (1.1-1.8); ALBUMIN 2.7 g/dL (3.0-4.8); ALT/SGPT 32 U/L (7-56); AST/SGOT 36 U/L (17-59); BLOOD UREA NITROGEN 11 mg/dL (7-21); CALCIUM 8.8 mg/dL (8.4-10.5); GFR AFRICAN-AMERICAN > 60; GFR NON-AFRICAN AMERICAN > 60
--- NOTE | 2017-11-06 08:44 | CON ---
DATE: 11/05/2017 CONSULTING PHYSICIAN: Jamaal Savage D.O. REFERRING PHYSICIAN: Dr. Smith. REASON FOR CONSULTATION: History of laryngeal carcinoma, cellulitis of neck. HISTORY OF PRESENT ILLNESS: This is an 87-year-old male well known to our practice. 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 The patient also has a history of coronary artery disease, status post CABG in 2014, hypertension, dyslipidemia, severe vascular surgeries including the lower extremity fem-pop surgery and a femoral endarterectomy. The patient has been admitted to [facility], complaining of rash and swelling of dermatitis to his neck. The patient was treated with radiation and chemotherapy for his squamous cell carcinoma of the epiglottis. Since then, he had developed dermatitis and was appropriately treated with antibiotics as well as topical Silvadene and bacitracin ointment. Patient also complains of nasal congestion as well as dry mouth and difficulty swallowing and oral dryness. Denies any difficulty breathing or shortness of breath or airway compromise. PAST MEDICAL HISTORY: As outlined above. PAST SURGICAL HISTORY: Also as outlined above. ALLERGIES: PATIENT DOES NOT HAVE ANY KNOWN DRUG ALLERGIES. MEDICATIONS: Currently he is on aspirin, Plavix, metoprolol, Bactroban, Protonix, Silvadene as well as antibiotics. SOCIAL HISTORY: The patient had a [id number] history. REVIEW OF SYSTEM: Negative as in the HPI. PHYSICAL EXAMINATION: GENERAL: An 87-year-old frail male, alert and oriented x3, in no acute distress, he is sitting comfortably. VITAL SIGNS: His blood pressure is noted to be within normal limits, heart rate is 96, temperature is afebrile. He is on room air saturation at 98% HEENT: Head: Atraumatic and normocephalic. Pupils are equal and reactive to light. Extraocular muscles are intact. His external auditory canals are noted to be within normal limits. The tympanic membranes are intact without any fluid. The intranasal examination show severe dryness with obstruction of his left nasal cavity with dry blood clot. His right nasal cavity shows excoriation as well as dry blood within the nasal cavity. His oral cavity is noted to be very dry. Uvula is midline, The tongue is mobile and midline. NECK: Has a small area of resolving dermatitis on his left neck extending down to his left clavicle. RESPIRATORY: His respirations are unlabored. His voice is hoarse. A bedside fiberoptic examination was then performed which showed edema and erythema of the epiglottis. The base of the tongue, the vallecula were clean. There was no obvious tumor on his epiglottis. His supraglottic region was erythematous and dry with thick mucous. His vocal cord was within normal limits with normal mobility. His neck did not show any adenopathy. ASSESSMENT AND PLAN: This is an 87-year-old male with history of laryngeal cancer diagnosed in 2006, status post radiation chemotherapy. At this point of time, we will continue with the current management for his dermatitis. It was recommended because of the nasal cavity dryness that we would switch to nasal rinse and nasal saline to be administered two sprays each nostril t.i.d. There was no need for any further acute ear, nose and throat intervention. The patient was instructed to follow up as an outpatient with Dr. Canela. He would later have a repeat PET scan as per Oncology. Thank you for allowing us to participate in this patient's care. Jamaal Savage DO MTDD
[2017-11-06] MEDS: Nystatin 100,000 Units/gm Cream(15 gm) TOP SCH ×3 (09:02→17:10)
[2017-11-06] MEDS: Silver Sulfadiazine 1% Cream (25 gm) TP SCH ×2 (09:03→17:12)
[2017-11-06] MEDS: Potassium Chloride 20 mEq/15 ml LIQ UD PO SCH ×2 (09:03→17:11)
--- NOTE | 2017-11-06 12:15 | CP.PCM.PN ---
Subjective - Date & Time of Evaluation Date of Evaluation: 11/06/17 Time of Evaluation: 10:40 - Subjective Subjective: S&E at bedside, chart reviewed, patient having alot of discomfort left neck/ shoulder,it is erythematous with scabs, Patient getting continuous PEG feeds of Jevity at 40 cc/hr and also PO intake, pt says that he tolerated some eggs and pancake, no c/o abdominal fullness, N/V or abdominal pain. Passing flatus and belching. Has not had BM in 4 days, he takes Amitiza at home. As per nursing staff patient has poor appetite. Spoke to medical associate at bedside and according to calorie count done patient eating about 50 percent. Objective - Vital Signs/Intake and Output Vital Signs (last 24 hours): Temp Pulse Resp BP Pulse Ox 97.8 F 90 20 135/70 94 L 11/05/17 18:15 11/06/17 09:05 11/05/17 18:15 11/06/17 09:05 11/05/17 18:15 - Medications Medications: Current Medications Aspirin (Ecotrin) 81 mg PO 0800 [facility] PRN Reason: Protocol Last Admin: 11/06/17 08:44 Dose: 81 mg Atorvastatin Calcium (Lipitor) 10 mg PO DIN [facility] PRN Reason: Protocol Last Admin: 11/05/17 17:59 Dose: 10 mg Clopidogrel Bisulfate (Plavix) 75 mg PEG DAILY [facility] Last Admin: 11/06/17 09:03 Dose: 75 mg Famciclovir (Famvir) 500 mg PO Q12 [facility] PRN Reason: Protocol Last Admin: 11/06/17 09:02 Dose: 500 mg Potassium Chloride 20 meq/ (Sodium Chloride) 1,010 mls @ 60 mls/hr IV .[id number] [facility] Last Admin: 11/05/17 18:56 Dose: 60 mls/hr Levothyroxine Sodium (Synthroid) 25 mcg PO 0600 [facility] Last Admin: 11/05/17 05:53 Dose: 25 mcg Lidocaine HCl (Xylocaine 2%) 1 ea TOP TID PRN; Protocol PRN Reason: Pain, moderate (4-7) Last Admin: 11/04/17 16:41 Dose: 1 applic Linezolid (Zyvox) 600 mg PO BID [facility] PRN Reason: Protocol Stop: 11/06/17 18:01 Last Admin: 11/06/17 09:04 Dose: 600 mg Metoprolol Tartrate (Lopressor) 25 mg PO 0800,1800 [facility] PRN Reason: Protocol Last Admin: 11/06/17 09:05 Dose: 25 mg Morphine Sulfate (Morphine) 2 mg IVP Q4H PRN; Protocol PRN Reason: Pain, severe (8-10) Last Admin: 11/06/17 10:28 Dose: 2 mg Mupirocin (Bactroban Ointment) 1 gm TOP BID [facility] PRN Reason: Protocol Last Admin: 11/06/17 09:02 Dose: 1 applic Nystatin (Mycostatin Cream) 0 ea TOP TID [facility] Last Admin: 11/06/17 09:02 Dose: 1 applic Ondansetron HCl (Zofran Inj) 4 mg IVP Q4H PRN; Protocol PRN Reason: Nausea/Vomiting Last Admin: 11/03/17 22:08 Dose: 4 mg Pantoprazole Sodium (Protonix Inj) 40 mg IVP 0600 [facility] PRN Reason: Protocol Last Admin: 11/05/17 05:10 Dose: 40 mg Potassium Chloride (Potassium Chloride Oral Soln) 20 meq PO 0800,1800 [facility] PRN Reason: Protocol Last Admin: 11/06/17 09:03 Dose: 20 meq Silver Sulfadiazine (Silvadene 1% 25 Gm) 0 gm TP BID [facility] PRN Reason: Protocol Last Admin: 11/06/17 09:03 Dose: 1 gm Sodium Chloride ([place] Nasal [place]) 0 ml NS TID [facility] PRN Reason: Protocol Last Admin: 11/06/17 09:03 Dose: 1 applic - Labs Labs: 11/06/17 06:30 11/06/17 06:30 - Constitutional Appears: No Acute Distress, Cachectic - Eye Exam Eye Exam: Normal appearance. absent: Scleral icterus - ENT Exam ENT Exam: Mucous Membranes Moist - Neck Exam Additional comments: left neck with erythema and scabs, no drainage, very tender, right chest port. - Respiratory Exam Respiratory Exam: Decreased Breath Sounds, Rhonchi, NORMAL BREATHING PATTERN. absent: Wheezes, Respiratory Distress - Cardiovascular Exam Cardiovascular Exam: +S1, +S2 - GI/Abdominal Exam GI & Abdominal Exam: Soft, Normal Bowel Sounds. absent: Guarding, Tenderness, Rebound Additional comments: (+) PEG, insertion site dry and intact - Extremities Exam Extremities Exam: absent: Calf Tenderness, Pedal Edema - Neurological Exam Neurological Exam: Alert, Awake, Oriented x3 - Skin Skin Exam: Dry, Warm Assessment and Plan - Assessment and Plan (Free Text) Assessment: ASSESSMENT: Laryngeal cancer, on radiation and chemotherapy Left side neck /shoulder/arm with extensive rash, history of cellulitis Dysphagia secondary to above status post PEG Improved shortness of breath CAD Hypertension Constipation Plan: finely chopped diet aspiration precautions On aspirin and Plavix Continue GI prophylaxis On IV antibiotics DVT prophylaxis, SCD On Jevity 40 cc/hr, check residual As per oncology give a dose of lactulose, spoke to patient and nurse at bedside for son to bring Jim from home spoke to patient/nurse and medical associate regarding PO intake, dont advise full PO meal and continous OEG feedings, patient at risk for aspiration, since calorie count concludes that patient takes about 50 percent of meal,(spoke to Greta, medical associate) consider the continuos PEG feeding evening time and DC in AM before breakfast. Seen and discussed with Dr. Foreman.
--- NOTE | 2017-11-06 12:35 | CP.PCM.PN ---
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 Patient seen and examined at bedside in the TCU. Hoarseness and pain at cellulitic site both improved compared to yesterday. Patient reports improvement in voice after humidified mask used briefly, but was unable to tolerate overnight or today, and some hoarseness has returned. Made NPO as per Speech Therapist's recs due to risk for aspiration, pending eval and possible laryngoscope by ENT. Nursing reports no overnight issues, but site of bleeding today in cellulitic area, so cleaned with sterile saline and then covered area with non-adhesive bandage; no breakthrough bleeding appreciated on exam. Objective - Vital Signs/Intake and Output Vital Signs (last 24 hours): Temp Pulse Resp BP Pulse Ox 97.8 F 90 20 135/70 94 L 11/05/17 18:15 11/06/17 09:05 11/05/17 18:15 11/06/17 09:05 11/05/17 18:15 - Medications Medications: Current Medications Aspirin (Ecotrin) 81 mg PO 0800 [facility] PRN Reason: Protocol Last Admin: 11/06/17 08:44 Dose: 81 mg Atorvastatin Calcium (Lipitor) 10 mg PO DIN [facility] PRN Reason: Protocol Last Admin: 11/05/17 17:59 Dose: 10 mg Clopidogrel Bisulfate (Plavix) 75 mg PEG DAILY [facility] Last Admin: 11/06/17 09:03 Dose: 75 mg Famciclovir (Famvir) 500 mg PO Q12 [facility] PRN Reason: Protocol Last Admin: 11/06/17 09:02 Dose: 500 mg Potassium Chloride 20 meq/ (Sodium Chloride) 1,010 mls @ 60 mls/hr IV .[id number] [facility] Last Admin: 11/05/17 18:56 Dose: 60 mls/hr Levothyroxine Sodium (Synthroid) 25 mcg PO 0600 [facility] Last Admin: 11/05/17 05:53 Dose: 25 mcg Lidocaine HCl (Xylocaine 2%) 1 ea TOP TID PRN; Protocol PRN Reason: Pain, moderate (4-7) Last Admin: 11/04/17 16:41 Dose: 1 applic Linezolid (Zyvox) 600 mg PO BID [facility] PRN Reason: Protocol Stop: 11/06/17 18:01 Last Admin: 11/06/17 09:04 Dose: 600 mg Metoprolol Tartrate (Lopressor) 25 mg PO 0800,1800 [facility] PRN Reason: Protocol Last Admin: 11/06/17 09:05 Dose: 25 mg Morphine Sulfate (Morphine) 2 mg IVP Q4H PRN; Protocol PRN Reason: Pain, severe (8-10) Last Admin: 11/06/17 10:28 Dose: 2 mg Mupirocin (Bactroban Ointment) 1 gm TOP BID [facility] PRN Reason: Protocol Last Admin: 11/06/17 09:02 Dose: 1 applic Nystatin (Mycostatin Cream) 0 ea TOP TID [facility] Last Admin: 11/06/17 09:02 Dose: 1 applic Ondansetron HCl (Zofran Inj) 4 mg IVP Q4H PRN; Protocol PRN Reason: Nausea/Vomiting Last Admin: 11/03/17 22:08 Dose: 4 mg Pantoprazole Sodium (Protonix Inj) 40 mg IVP 0600 [facility] PRN Reason: Protocol Last Admin: 11/05/17 05:10 Dose: 40 mg Potassium Chloride (Potassium Chloride Oral Soln) 20 meq PO 0800,1800 [facility] PRN Reason: Protocol Last Admin: 11/06/17 09:03 Dose: 20 meq Silver Sulfadiazine (Silvadene 1% 25 Gm) 0 gm TP BID [facility] PRN Reason: Protocol Last Admin: 11/06/17 09:03 Dose: 1 gm Sodium Chloride ([place] Nasal [place]) 0 ml NS TID [facility] PRN Reason: Protocol Last Admin: 11/06/17 09:03 Dose: 1 applic - Labs Labs: 11/06/17 06:30 11/06/17 06:30 - Additional Findings Additional findings: - Constitutional Appears: Non-toxic, No Acute Distress, Cachectic (very cachetic, can see sternotomy wires from CABG pushing up through skin at sterum), Chronically Ill - Head Exam Head Exam: ATRAUMATIC, NORMAL INSPECTION, NORMOCEPHALIC - Eye Exam Eye Exam: EOMI, Normal appearance. absent: Conjunctival injection, Scleral icterus Pupil Exam: absent: Irregular, Unequal - ENT Exam ENT Exam: Mucous Membranes Dry Additional comments: Mildly improved Hoarseness, only able to speak at a level of a barely intelligible whisper No petechiae or active bleeding sources identified No exudates or candidiasis appreciated Dark round mass visualized at left posterior aspect of patient's posterior pharynx, unable to fully visualize - Neck Exam Neck exam: Positive for: Full Rom - Respiratory Exam Respiratory Exam: NORMAL BREATHING PATTERN. absent: Accessory Muscle Use, Rales , Rhonchi, Wheezes - Cardiovascular Exam Cardiovascular Exam: REGULAR RHYTHM, RRR, +S1, +S2. absent: Bradycardia, Tachycardia, Irregular Rhythm, +S4 - GI/Abdominal Exam GI & Abdominal Exam: Normal Bowel Sounds, Soft. absent: Diminished Bowel Sounds , Distended, Firm, Hyperactive Bowel Sounds, Hypoactive Bowel Sounds, Rigid, Tenderness - Extremities Exam Extremities exam: Positive for: pedal pulses present. Negative for: calf tenderness, pedal edema, tenderness Additional comments: mildly waxy-like skin at bilateral LE from extending from feet to ankles distal LE warm to palpation - Neurological Exam Neurological exam: Alert, Oriented x3 Additional comments: following all commands appropriately, moving all extremities spontaneously motor appears grossly intact and equal bilaterally - Psychiatric Exam Psychiatric exam: Normal Affect, Normal Mood - Skin Skin Exam: Dry, Intact, Normal Color, Warm (Except as listed below) Additional comments: Sternotomy wires visualized pushing up skin at sternum, right chest port easily visualized through skin, but neither with breakdown or breakthrough of skin Left sided rash/cellulitis, patchy, extending from left posterior neck to left arm, shoulder, and left superior chest wall involvement. 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 He has since been transferred to TCU for reconditioning while receiving additional antibiotics. 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 (s/p radiation and Erbitux therapy) HTN CAD s/p CABG Expanding rash along left neck/shoulder/arm, r/o cellulitis vs drug reaction - stable Shortness of breath - improved Increased difficulty swallowing - improved Hyponatremia, likely SIADH - improved -ID following, appreciate their recs; pt currently on Linezolid and Bactro -Continue ASA and Plavix given hx of CAD s/p CABG, continue Lipitor -continue metolazone, Metoprolol -Continue Protonix for GI ppx -[employer] Att[employer] consulted for tube feeding until swallow study passed, would rec 7-8 cans of Jevity per day, but patient reports only able to tolerate 4-5 per day -Echo obtained, notable for EF 63%, mild aortic sclerosis, otherwise unremarkable -GI consulted for difficulty swallowing, appreciate their recs -Hyponatremic, Nephro consulted, appreciate their recs; 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 Smith.
--- NOTE | 2017-11-06 17:11 | CP.PCM.PN ---
Subjective - Date & Time of Evaluation Date of Evaluation: 11/06/17 Time of Evaluation: 11:45 - Subjective Subjective: Resting comfortably in bed, no fevers, less pain on the left chest , shoulder. Objective - Vital Signs/Intake and Output Vital Signs (last 24 hours): Temp Pulse Resp BP Pulse Ox 97.7 F 90 20 150/73 94 L 11/06/17 10:00 11/06/17 10:00 11/06/17 10:00 11/06/17 10:00 11/06/17 10:00 - Medications Medications: Current Medications Aspirin (Ecotrin) 81 mg PO 0800 [facility] PRN Reason: Protocol Last Admin: 11/06/17 08:44 Dose: 81 mg Atorvastatin Calcium (Lipitor) 10 mg PO DIN [facility] PRN Reason: Protocol Last Admin: 11/05/17 17:59 Dose: 10 mg Clopidogrel Bisulfate (Plavix) 75 mg PEG DAILY [facility] Last Admin: 11/06/17 09:03 Dose: 75 mg Famciclovir (Famvir) 500 mg PO Q12 [facility] PRN Reason: Protocol Last Admin: 11/06/17 09:02 Dose: 500 mg Potassium Chloride 20 meq/ (Sodium Chloride) 1,010 mls @ 60 mls/hr IV .[id number] [facility] Last Admin: 11/06/17 12:28 Dose: 60 mls/hr Levothyroxine Sodium (Synthroid) 25 mcg PO 0600 [facility] Last Admin: 11/05/17 05:53 Dose: 25 mcg Lidocaine HCl (Xylocaine 2%) 1 ea TOP TID PRN; Protocol PRN Reason: Pain, moderate (4-7) Last Admin: 11/04/17 16:41 Dose: 1 applic Linezolid (Zyvox) 600 mg PO BID [facility] PRN Reason: Protocol Stop: 11/06/17 18:01 Last Admin: 11/06/17 09:04 Dose: 600 mg Metoprolol Tartrate (Lopressor) 25 mg PO 0800,1800 [facility] PRN Reason: Protocol Last Admin: 11/06/17 09:05 Dose: 25 mg Morphine Sulfate (Morphine) 2 mg IVP Q4H PRN; Protocol PRN Reason: Pain, severe (8-10) Last Admin: 11/06/17 15:30 Dose: 2 mg Mupirocin (Bactroban Ointment) 1 gm TOP BID [facility] PRN Reason: Protocol Last Admin: 11/06/17 09:02 Dose: 1 applic Nystatin (Mycostatin Cream) 0 ea TOP TID [facility] Last Admin: 11/06/17 09:02 Dose: 1 applic Ondansetron HCl (Zofran Inj) 4 mg IVP Q4H PRN; Protocol PRN Reason: Nausea/Vomiting Last Admin: 11/03/17 22:08 Dose: 4 mg Pantoprazole Sodium (Protonix Inj) 40 mg IVP 0600 [facility] PRN Reason: Protocol Last Admin: 11/05/17 05:10 Dose: 40 mg Potassium Chloride (Potassium Chloride Oral Soln) 20 meq PO 0800,1800 [facility] PRN Reason: Protocol Last Admin: 11/06/17 09:03 Dose: 20 meq Silver Sulfadiazine (Silvadene 1% 25 Gm) 0 gm TP BID [facility] PRN Reason: Protocol Last Admin: 11/06/17 09:03 Dose: 1 gm Sodium Chloride ([place] Nasal [place]) 0 ml NS TID [facility] PRN Reason: Protocol Last Admin: 11/06/17 13:40 Dose: Not Given - Labs Labs: 11/06/17 06:30 11/06/17 06:30 - Constitutional Appears: Cachectic, Chronically Ill - Head Exam Head Exam: NORMAL INSPECTION - ENT Exam ENT Exam: Mucous Membranes Moist - Neck Exam Neck Exam: absent: Meningismus - Respiratory Exam Respiratory Exam: Decreased Breath Sounds Additional comments: left chest and shoulder with decreasing erythema and lesions - Cardiovascular Exam Cardiovascular Exam: +S1, +S2 - GI/Abdominal Exam GI & Abdominal Exam: Soft. absent: Tenderness Assessment and Plan - Assessment and Plan (Free Text) Plan: Assessment superinfection of left side of neck with bacteria (MRSA), R/O viral, fungal or mycobacterial infection histroy of radiation dermatitis on left side of neck with superimposed cellulitis, growing MRSA acute renal failure, R/O Vancomycin-induced nephrotoxicity, slowly improving throat cancer S/P port placement on chemotherapy and radiation therapy S/P PEG placement Plan continue Zyvox and Bactroban ointment day 8, and famvir; wound cx showing MRSA; would suggest skin biopsy to be sent for fungal, mycobacterial cultures as well ; complete 7-10 days of therapy overall prognosis is poor
--- NOTE | 2017-11-06 20:23 | PN ---
DATE: SUBJECTIVE: The patient is currently seen lying comfortable in bed in the TCU. He appears to be in no acute distress. PEG tube feedings are infusing. He has received a total of three doses of tolvaptan. His sodium level is now up to 141. The patient also has been on normal saline 60 mL an hour. MEDICATIONS: List reviewed. The patient is on Bactroban, Ecotrin, Famvir, Lipitor, Lopressor, morphine p.r.n., Mycostatin, [place] nasal spray, Plavix. IV fluid with normal saline and potassium chloride, which will be discontinued. Potassium chloride, Protonix, Silvadene, Synthroid, lidocaine, Zofran, and Zyvox. PHYSICAL EXAMINATION: VITAL SIGNS: Blood pressure 150/73, temperature 97.7, respiratory rate 20 with a pulse of 90. HEENT: Normocephalic, atraumatic. Conjunctivae pale. Sclerae nonicteric. NECK: Supple. Radiation changes with hyperpigmentation and erythema left side of the neck, extending down to left anterior chest wall. This appears to be improving on a daily basis, area of superinfection appears to be clearing. No neck vein distention. CHEST: Clear to auscultation and percussion. No rales, rhonchi, or wheezing. CARDIOVASCULAR: Shows a regular rate and rhythm without murmurs, rubs, or gallops. ABDOMEN: Soft. Bowel sounds normal. The patient has a PEG tube in place and id receiving Jevity at 40 mL an hour. EXTREMITIES: No lower extremity cyanosis, clubbing, or edema. LABORATORY DATA AND IMAGING: CBC: White blood cell count today is stable 7.7, hemoglobin stable 8.6, platelet count is 271,000. Chemistry showed normal electrolytes. His potassium was up to 3.8, sodium is 141. BUN 11 with a creatinine of 0.7. Glucose is 114. TSH was mildly elevated and the patient is currently receiving low-dose thyroid replacement therapy. ASSESSMENT: 1. Hyponatremia, likely secondary to syndrome of inappropriate antidiuretic hormone secretion. The patient responded very nicely to three doses of tolvaptan 15 mg. I will discontinue IV fluid hydration. The patient is only using minimal amounts of water for his percutaneous endoscopic gastrostomy tube feeding flushes. The patient also was not taking in large amounts of p.o. fluid intake. 2. Borderline to mild hypothyroidism. As per Endocrine, the patient has been started on low-dose thyroid replacement therapy. 3. 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 4. History of hypertension. Blood pressure control is acceptable. 5. Dermatitis of the left neck and left upper chest wall. This was positive for methicillin-resistant Staphylococcus aureus. The patient is continuing antibiotic therapy in the TCU. 6. Status post hypokalemia. This has been replaced and potassium level is 3.8 today. The patient will continue oral iron supplements. 7. History of chronic obstructive pulmonary disease secondary to long history of cigarette smoking. 8. History of hyperlipidemia, on diet and statin therapy. 9. History of atherosclerotic heart disease, status post coronary artery bypass graft, stable. 10. History of anemia, in part secondary to underlying malignancy. PLAN: 1. I will discontinue IV fluid hydration. 2. Tolvaptan discontinued post three doses. 3. Continue low-dose thyroid replacement therapy and continue to monitor thyroid function test. 4. The patient cautioned to try and minimize excessive fluid intake in light of his history of SIADH. Camilo Trammell MD
[2017-11-07] MEDS: Levothyroxine 25 MCG TAB PO SCH (05:54)
[2017-11-07 06:38] LABS: BASO # 0.03 K/mm3 (0.0-2.0); BASO % 0.4 % (0.0-3.0); EOS # 1.2 (0.0-0.7); GRAN # 5.02 (1.4-6.5); GRAN % 61.2 % (50.0-68.0); HEMOGLOBIN 8.7 g/dL (14.0-18.0); LYMPH % 11.8 % (22.0-35.0); MEAN CELL VOLUME 88.2 fl (80.0-105.0); MEAN CORPUSCULAR HEMOGLOBIN 28.5 pg (25.0-35.0); MEAN CORPUSCULAR HGB CONC 32.3 g/dl (31.0-37.0); MEAN PLATELET VOLUME 8.7 fl (7.0-11.0); MONO % 12.6 % (1.0-6.0); RBC 3.05 10^6/uL (3.5-6.1); RED CELL DISTRIBUTION WIDTH 14.6 % (11.5-14.5); WHITE BLOOD COUNT 8.2 10^3/ul (4.5-11.0)
[2017-11-07 06:58] LABS: ALB/GLOB RATIO 0.9 (1.1-1.8); ALBUMIN 2.7 g/dL (3.0-4.8); ALT/SGPT 27 U/L (7-56); AST/SGOT 44 U/L (17-59); BLOOD UREA NITROGEN 12 mg/dL (7-21); CALCIUM 8.9 mg/dL (8.4-10.5); GFR AFRICAN-AMERICAN > 60; GFR NON-AFRICAN AMERICAN > 60
[2017-11-07] MEDS: Potassium Chloride 20 mEq/15 ml LIQ UD PO SCH ×2 (07:57→17:17)
--- NOTE | 2017-11-07 08:25 | PN ---
DATE: 11/06/2017 ENDOCRINOLOGY FOLLOWUP NOTE LOCATION: Room 319, [facility]. SUBJECTIVE: This is an 87-year-old male, recently evaluated to have overt hypothyroidism and was started on levothyroxine replacement therapy, which he is tolerating fairly well at this time. He has had recent deconditioning and currently undergoing acute physical and occupational therapy with ongoing IV antibiotic management as given. LABORATORY DATA: His latest chemistry showed a BUN of 11, sodium 141, potassium 3.8, chloride 105, CO2 of 29, glucose 114 and creatinine 0.7. The repeat thyroid study showed a TSH of 8.23 with a T4 of 5.5 and a free T4 of 1.19. 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 PLAN OF MANAGEMENT: We will continue the levothyroxine given at the very small dose of 25 mcg once daily as ordered and we will titrate incrementally as indicated to optimize metabolic control. We will obtain serial chemistries and supplement accordingly as needed. We will follow. Michelle Richardson MD
[2017-11-07] MEDS: Nystatin 100,000 Units/gm Cream(15 gm) TOP SCH ×3 (09:48→17:15)
[2017-11-07] MEDS: Silver Sulfadiazine 1% Cream (25 gm) TP SCH ×2 (09:49→17:18)
[2017-11-07] MEDS: Lidocaine 2% Jelly (30 ml) TOP PRN (09:50)
[2017-11-07] MEDS: Morphine 2 mg/ml ISec IVP PRN ×2 (10:05→17:18)
--- NOTE | 2017-11-07 10:06 | CP.PCM.PN ---
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 Patient seen and examined at bedside in the TCU. Speech appears back to baseline today. Is complaining of intermittent pain at left shoulder, feels like abrupt electrical shock or burning sensation. Does not last more than a few minutes at a time, but is exquisitely painful when it happens. Denies other pains, denies shortness of breath. Finely chopped diet with nectar thickened liquids cleared by Speech therapist, which patient is eating at time of exam, no overt difficulty swallowing as per exam. Objective - Vital Signs/Intake and Output Vital Signs (last 24 hours): Temp Pulse Resp BP Pulse Ox 97.6 F 95 H 20 158/82 H 100 11/06/17 17:47 11/07/17 07:56 11/06/17 17:47 11/07/17 07:56 11/06/17 17:47 - Medications Medications: Current Medications Aspirin (Ecotrin) 81 mg PO 0800 [facility] PRN Reason: Protocol Last Admin: 11/07/17 07:57 Dose: 81 mg Atorvastatin Calcium (Lipitor) 10 mg PO DIN [facility] PRN Reason: Protocol Last Admin: 11/06/17 17:07 Dose: 10 mg Clopidogrel Bisulfate (Plavix) 75 mg PEG DAILY [facility] Last Admin: 11/07/17 09:48 Dose: 75 mg Famciclovir (Famvir) 500 mg PO Q12 [facility] PRN Reason: Protocol Last Admin: 11/07/17 09:47 Dose: 500 mg Potassium Chloride 20 meq/ (Sodium Chloride) 1,010 mls @ 60 mls/hr IV .[id number] [facility] Last Admin: 11/07/17 05:54 Dose: Not Given Levothyroxine Sodium (Synthroid) 25 mcg PO 0600 [facility] Last Admin: 11/07/17 05:54 Dose: 25 mcg Lidocaine HCl (Xylocaine 2%) 1 ea TOP TID PRN; Protocol PRN Reason: Pain, moderate (4-7) Last Admin: 11/07/17 09:50 Dose: 1 applic Metoprolol Tartrate (Lopressor) 25 mg PO 0800,1800 [facility] PRN Reason: Protocol Last Admin: 11/07/17 07:56 Dose: 25 mg Morphine Sulfate (Morphine) 2 mg IVP Q4H PRN; Protocol PRN Reason: Pain, severe (8-10) Last Admin: 11/06/17 15:30 Dose: 2 mg Mupirocin (Bactroban Ointment) 1 gm TOP BID [facility] PRN Reason: Protocol Last Admin: 11/07/17 09:47 Dose: 1 applic Nystatin (Mycostatin Cream) 0 ea TOP TID [facility] Last Admin: 11/07/17 09:48 Dose: 1 applic Ondansetron HCl (Zofran Inj) 4 mg IVP Q4H PRN; Protocol PRN Reason: Nausea/Vomiting Last Admin: 11/03/17 22:08 Dose: 4 mg Pantoprazole Sodium (Protonix Inj) 40 mg IVP 0600 [facility] PRN Reason: Protocol Last Admin: 11/07/17 05:54 Dose: 40 mg Potassium Chloride (Potassium Chloride Oral Soln) 20 meq PO 0800,1800 [facility] PRN Reason: Protocol Last Admin: 11/07/17 07:57 Dose: 20 meq Silver Sulfadiazine (Silvadene 1% 25 Gm) 0 gm TP BID [facility] PRN Reason: Protocol Last Admin: 11/07/17 09:49 Dose: 1 gm Sodium Chloride ([place] Nasal [place]) 0 ml NS TID [facility] PRN Reason: Protocol Last Admin: 11/07/17 09:48 Dose: 1 applic - Labs Labs: 11/07/17 06:15 11/07/17 06:15 - Additional Findings Additional findings: - Constitutional Appears: Non-toxic, No Acute Distress, Cachectic (very cachetic, can see sternotomy wires from CABG pushing up through skin at sterum), Chronically Ill - Head Exam Head Exam: ATRAUMATIC, NORMAL INSPECTION, NORMOCEPHALIC - Eye Exam Eye Exam: EOMI, Normal appearance. absent: Conjunctival injection, Scleral icterus Pupil Exam: absent: Irregular, Unequal - ENT Exam ENT Exam: Mucous Membranes Dry Additional comments: Speech back to baseline No petechiae or active bleeding sources identified No exudates or candidiasis appreciated - Neck Exam Neck exam: Positive for: Full Rom - Respiratory Exam Respiratory Exam: NORMAL BREATHING PATTERN. absent: Accessory Muscle Use, Rales , Rhonchi, Wheezes - Cardiovascular Exam Cardiovascular Exam: REGULAR RHYTHM, RRR, +S1, +S2. absent: Bradycardia, Tachycardia, Irregular Rhythm, +S4 - GI/Abdominal Exam GI & Abdominal Exam: Normal Bowel Sounds, Soft. absent: Diminished Bowel Sounds , Distended, Firm, Hyperactive Bowel Sounds, Hypoactive Bowel Sounds, Rigid, Tenderness - Extremities Exam Extremities exam: Positive for: pedal pulses present. Negative for: calf tenderness, pedal edema, tenderness Additional comments: mildly waxy-like skin at bilateral LE from extending from feet to ankles distal LE warm to palpation - Neurological Exam Neurological exam: Alert, Oriented x3 Additional comments: following all commands appropriately, moving all extremities spontaneously motor appears grossly intact and equal bilaterally - Psychiatric Exam Psychiatric exam: Normal Affect, Normal Mood - Skin Skin Exam: Dry, Intact, Normal Color, Warm (Except as listed below) Additional comments: Sternotomy wires visualized pushing up skin at sternum, right chest port easily visualized through skin, but neither with breakdown or breakthrough of skin Left sided rash/cellulitis, patchy, extending from left posterior neck to left arm, shoulder, and left superior chest wall involvement. 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 He has since been transferred to TCU for reconditioning while receiving additional antibiotics. 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 (s/p radiation and Erbitux therapy) HTN CAD s/p CABG Expanding rash along left neck/shoulder/arm, r/o cellulitis vs drug reaction - stable Shortness of breath - improved Increased difficulty swallowing - improved Hyponatremia, likely SIADH - improved -ID following, appreciate their recs; pt currently on Linezolid and Bactroban cream, recs skin biopsy to test for fungals -Continue ASA and Plavix given hx of CAD s/p CABG, continue Lipitor -continue metolazone, Metoprolol -Continue Protonix for GI ppx -[place] consulted for tube feeding until swallow study passed, would rec 7-8 cans of Jevity per day, but patient reports only able to tolerate 4-5 per day -Echo obtained, notable for EF 63%, mild aortic sclerosis, otherwise unremarkable -GI consulted for difficulty swallowing, appreciate their recs -Hyponatremic, Nephro consulted, appreciate their recs; likely SIADH based on labs, improved after 3 doses of tolvaptam, restrict PO fluids, no further tolvaptam -Endo consulted, appreciate their recs; 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 Smith.
--- NOTE | 2017-11-07 12:57 | CP.PCM.PN ---
Subjective - Date & Time of Evaluation Date of Evaluation: 11/07/17 Time of Evaluation: 12:54 - Subjective Subjective: Patient seen and examined resting comfortably in bed. Hoarse voice. C/o dry mouth and tongue. Objective - Vital Signs/Intake and Output Vital Signs (last 24 hours): Temp Pulse Resp BP Pulse Ox 97.6 F 95 H 20 158/82 H 100 11/06/17 17:47 11/07/17 07:56 11/06/17 17:47 11/07/17 07:56 11/06/17 17:47 - Medications Medications: Current Medications Aspirin (Ecotrin) 81 mg PO 0800 [facility] PRN Reason: Protocol Last Admin: 11/07/17 07:57 Dose: 81 mg Atorvastatin Calcium (Lipitor) 10 mg PO DIN [facility] PRN Reason: Protocol Last Admin: 11/06/17 17:07 Dose: 10 mg Clopidogrel Bisulfate (Plavix) 75 mg PEG DAILY [facility] Last Admin: 11/07/17 09:48 Dose: 75 mg Famciclovir (Famvir) 500 mg PO Q12 [facility] PRN Reason: Protocol Last Admin: 11/07/17 09:47 Dose: 500 mg Home Med (Home Med) 0 unit PO BID [facility] Potassium Chloride 20 meq/ (Sodium Chloride) 1,010 mls @ 60 mls/hr IV .[id number] [facility] Last Admin: 11/07/17 05:54 Dose: Not Given Levothyroxine Sodium (Synthroid) 25 mcg PO 0600 [facility] Last Admin: 11/07/17 05:54 Dose: 25 mcg Lidocaine HCl (Xylocaine 2%) 1 ea TOP TID PRN; Protocol PRN Reason: Pain, moderate (4-7) Last Admin: 11/07/17 09:50 Dose: 1 applic Metoprolol Tartrate (Lopressor) 25 mg PO 0800,1800 [facility] PRN Reason: Protocol Last Admin: 11/07/17 07:56 Dose: 25 mg Morphine Sulfate (Morphine) 2 mg IVP Q4H PRN; Protocol PRN Reason: Pain, severe (8-10) Last Admin: 11/07/17 10:05 Dose: 2 mg Mupirocin (Bactroban Ointment) 1 gm TOP BID [facility] PRN Reason: Protocol Last Admin: 11/07/17 09:47 Dose: 1 applic Nystatin (Mycostatin Cream) 0 ea TOP TID [facility] Last Admin: 11/07/17 09:48 Dose: 1 applic Ondansetron HCl (Zofran Inj) 4 mg IVP Q4H PRN; Protocol PRN Reason: Nausea/Vomiting Last Admin: 11/03/17 22:08 Dose: 4 mg Pantoprazole Sodium (Protonix Inj) 40 mg IVP 0600 [facility] PRN Reason: Protocol Last Admin: 11/07/17 05:54 Dose: 40 mg Potassium Chloride (Potassium Chloride Oral Soln) 20 meq PO 0800,1800 [facility] PRN Reason: Protocol Last Admin: 11/07/17 07:57 Dose: 20 meq Silver Sulfadiazine (Silvadene 1% 25 Gm) 0 gm TP BID [facility] PRN Reason: Protocol Last Admin: 11/07/17 09:49 Dose: 1 gm Sodium Chloride ([place] Nasal [place]) 0 ml NS TID [facility] PRN Reason: Protocol Last Admin: 11/07/17 09:48 Dose: 1 applic - Labs Labs: 11/07/17 06:15 11/07/17 06:15 - Constitutional Appears: Well, Non-toxic, No Acute Distress - Head Exam Head Exam: ATRAUMATIC, NORMAL INSPECTION, NORMOCEPHALIC - Eye Exam Eye Exam: EOMI, Normal appearance, PERRL Pupil Exam: PERRL - ENT Exam ENT Exam: Mucous Membranes Dry Additional comments: ear canals patent no drainage, Dry nose - Neck Exam Neck Exam: Full ROM. absent: Lymphadenopathy Additional comments: post radiation changes - Respiratory Exam Respiratory Exam: NORMAL BREATHING PATTERN - Neurological Exam Neurological Exam: Alert, Awake, Oriented x3 - Psychiatric Exam Psychiatric exam: Normal Affect, Normal Mood - Skin Skin Exam: Intact Assessment and Plan (1) Cellulitis Status: Acute (2) Coronary arteriosclerosis Status: Acute (3) Coronary artery disease Status: Acute (4) Hyponatremia Status: Acute (5) Laryngeal cancer Status: Chronic (6) Dyspnea on exertion Status: Resolved - Assessment and Plan (Free Text) Plan: continue oral care, continue to monitor. will follow, eventual PET CT as out patient
[2017-11-07] MEDS: Lidocaine 5% Patch TD SCH (16:14)
--- NOTE | 2017-11-07 17:00 | PN ---
DATE: SUBJECTIVE: The patient is currently seen entirely comfortable, lying supine in bed. PEG tube feedings are Infusing. Labs today showed a sodium of 137, potassium of 4.0 with normal renal parameters. The patient has now metabolically normalized all of his electrolytes. MEDICATIONS: Medication list reviewed. The patient is mupirocin, Ecotrin, Famvir, Amitiza, Lidoderm, Lipitor, Lopressor, morphine, Mycostatin cream, Neurontin, [place] nasal spray, Plavix, oral potassium supplements, Protonix, Silvadene, Synthroid, Xylocaine 2% topical and Zofran. PHYSICAL EXAMINATION: VITAL SIGNS: Blood pressure 158/82, pulse of 95, respiratory rate of 20 with a temperature of 97.6. HEENT: Exam shows him to be normocephalic, atraumatic. Conjunctivae are pale. Sclerae are nonicteric. NECK: Supple with radiation changes with hyperpigmentation and erythema of left side of the neck extending down to the left anterior chest wall. This appears improved. The area of superinfection appears to have cleared. No neck vein distention. CHEST: Clear to auscultation and percussion. No rales, rhonchi or wheezing. CARDIOVASCULAR: Regular rate and rhythm without murmurs, rubs or gallops. ABDOMEN: Soft. Bowel sounds normal. The patient has a PEG tube in place and is receiving Jevity at 40 mL an hour. EXTREMITIES: No lower extremity cyanosis, clubbing or edema. LABORATORY DATA AND IMAGING: CBC: White blood cell count today 8.2, hemoglobin 8.7, platelet count is 265,000. Chemistries showed normal electrolytes. Sodium is 137. Potassium is now 4.0. BUN 12 with a creatinine of 0.6. Glucose is 114. Liver enzymes are normal. Albumin is 2.7. TSH level was 8.23 and the patient had been started on low-dose thyroid replacement therapy by Endocrinology. ASSESSMENT: 1. Hyponatremia, likely secondary to the syndrome of inappropriate antidiuretic hormone secretion. This is in the setting of laryngeal cancer stage IV. The patient responded best to three doses of tolvaptan 15 mg each. His sodium had risen up to a high of 141. The patient now being off of this medication. Needs to adhere to fluid restrictions. The patient is receiving only very minimal amount of fluid for flushing of the percutaneous endoscopic gastrostomy tube feedings. His oral fluid intake also appears to be reduced. We will continue to monitor labs in the Transitional Care Unit. 2. Borderline to mild hypothyroidism. As per Endocrinology consultation, the patient has been started on low-dose thyroid replacement therapy. 3. History of stage IV laryngeal cancer. The patient is receiving radiation therapy, which is ongoing and Erbitux. 4. History of hypertension. Blood pressure control is acceptable. There are mild elevations of his systolic readings. The patient remains on metoprolol. The patient can be started on low-dose calcium channel lloyd therapy to try and lower his systolic blood pressure into the 130-140 range. 5. Status post hypokalemia. This has resolved with replacement therapy. The patient continues on oral supplements. 6. History of chronic obstructive pulmonary disease secondary to long history of cigarette smoking. 7. History of hyperlipidemia, on diet and statin therapy. 8. History of atherosclerotic heart disease, status post coronary artery bypass graft, stable. 9. History of anemia, in part secondary to his underlying malignancy. PLAN: 1. The patient may remain off of IV fluid hydration. 2. No plans to restart tolvaptan unless the sodium level drops low. 3. Continue low-dose thyroid replacement therapy. 4. I will add low-dose calcium channel lloyd therapy because systolic blood pressures are trending higher. 5. The patient to continue all voluntary p.o. fluid restriction and we will minimize the amount of fluid that is given to him via the PEG tube for the flushing. Camilo Trammell MD
[2017-11-07] MEDS: LUBIPROSTONE 24 MCG PO SCH (17:12)
--- NOTE | 2017-11-07 21:24 | PN ---
DATE: ENDOCRINOLOGY FOLLOWUP NOTE LOCATION: Room 319. SUBJECTIVE: This is an 87-year-old male with recent overt hypothyroidism both historically and clinically and biochemically, currently tolerating the levothyroxine replacement therapy as given. He is also receiving IV antibiotic management for recent bacteremia, with ongoing physical therapy for recent deconditioning with acute medical admission as noted thereof. OBJECTIVE: His latest chemistry showed a BUN of 11, sodium 141, potassium 3.8, chloride 105, CO2 of 29, glucose 114, and creatinine 0.7. His latest thyroid study showed a T4 of 5.5 with a TSH of 8.23 and a free T4 of 1.19. ASSESSMENT AND PLAN: So at this time, we will continue the low-dose levothyroxine given as 25 mcg once daily as ordered. We will titrate incrementally as indicated to optimize metabolic control. We will follow and advise accordingly. Michelle Richardson MD
[2017-11-08] MEDS: Lidocaine 2% Jelly (30 ml) TOP PRN (00:02)
[2017-11-08] MEDS: Levothyroxine 25 MCG TAB PO SCH (05:32)
[2017-11-08 06:10] LABS: BASO # 0.02 K/mm3 (0.0-2.0); BASO % 0.2 % (0.0-3.0); EOS # 1.1 (0.0-0.7); EOS % 12.7 % (1.5-5.0); GRAN # 4.7 (1.4-6.5); GRAN % 56.7 % (50.0-68.0); HEMOGLOBIN 8.5 g/dL (14.0-18.0); LYMPH # 1.4 (1.2-3.4); LYMPH % 16.6 % (22.0-35.0); MEAN CORPUSCULAR HGB CONC 33.3 g/dl (31.0-37.0); MEAN PLATELET VOLUME 8.7 fl (7.0-11.0); MONO # 1.1 (0.1-0.6); MONO % 13.8 % (1.0-6.0); RBC 2.93 10^6/uL (3.5-6.1); RED CELL DISTRIBUTION WIDTH 14.4 % (11.5-14.5); WHITE BLOOD COUNT 8.3 10^3/ul (4.5-11.0)
[2017-11-08 07:21] LABS: ALB/GLOB RATIO 0.9 (1.1-1.8); ALBUMIN 2.6 g/dL (3.0-4.8); ALT/SGPT 31 U/L (7-56); AST/SGOT 29 U/L (17-59); BLOOD UREA NITROGEN 15 mg/dL (7-21); CALCIUM 8.6 mg/dL (8.4-10.5); GFR AFRICAN-AMERICAN > 60; GFR NON-AFRICAN AMERICAN > 60
--- NOTE | 2017-11-08 08:21 | PN ---
DATE: 11/07/2017 SUBJECTIVE: This patient was seen and evaluated earlier. Patient has been tolerating the G-tube feeding. Speech therapy reevaluation noticed. ENT report was reviewed. Patient was told to have an appropriate feeding of finely chopped diet with nectar-thickened liquid. Small portions for pleasure feeding is only recommended. PHYSICAL EXAMINATION: GENERAL: Patient is comfortable. VITAL SIGNS: Temperature is 98.6, blood pressure 157/58, respirations 20, O2 saturation 100%. HEENT: Atraumatic, anicteric. NECK: Supple. HEART: S1 and S2 heard. LUNGS: Bilateral air entry present. SKIN: The ulcerated neck and chest skin lesions have significant improvement noticed. IMPRESSION AND PLAN: ENT evaluation and also Speech Therapy evaluation noticed. Discussed with Dr. Smith. The plan is to continue the G-tube feeding at the same rate and p.o. pureed diet with assistance for pleasure only. Thank you very much for allowing us to participate in the care of the patient. Pj Foreman MD
[2017-11-08] MEDS: Potassium Chloride 20 mEq/15 ml LIQ UD PO SCH ×2 (08:28→17:31)
[2017-11-08] MEDS: LUBIPROSTONE 24 MCG PO SCH ×2 (09:42→17:27)
[2017-11-08] MEDS: Lidocaine 5% Patch TD SCH (09:42)
[2017-11-08] MEDS: Nystatin 100,000 Units/gm Cream(15 gm) TOP SCH ×4 (09:52→17:30)
[2017-11-08] MEDS: Silver Sulfadiazine 1% Cream (25 gm) TP SCH ×2 (09:52→17:32)
--- NOTE | 2017-11-08 10:07 | CP.PCM.PN ---
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 Patient seen and examined at bedside in the TCU. Speech remains at baseline today. Reports improved pain with addition of Gabapentin overnight, getting his Lidoderm patch at time of exam. Continues to tolerate diet well. Denies chest pain, shortness of breath, nausea, diarrhea, emesis, hemoptysis, diarrhea , melena. Objective - Vital Signs/Intake and Output Vital Signs (last 24 hours): Temp Pulse Resp BP Pulse Ox 97.8 F 90 20 125/68 95 11/08/17 06:00 11/08/17 08:27 11/08/17 06:00 11/08/17 09:43 11/08/17 06:00 - Medications Medications: Current Medications Amlodipine Besylate (Norvasc) 5 mg PO DAILY [facility] Last Admin: 11/08/17 09:43 Dose: 5 mg Aspirin (Ecotrin) 81 mg PO 0800 [facility] PRN Reason: Protocol Last Admin: 11/08/17 08:24 Dose: 81 mg Atorvastatin Calcium (Lipitor) 10 mg PO DIN [facility] PRN Reason: Protocol Last Admin: 11/07/17 17:13 Dose: 10 mg Clopidogrel Bisulfate (Plavix) 75 mg PEG DAILY [facility] Last Admin: 11/08/17 09:44 Dose: 75 mg Famciclovir (Famvir) 500 mg PO Q12 [facility] PRN Reason: Protocol Last Admin: 11/08/17 09:42 Dose: 500 mg Gabapentin (Neurontin) 100 mg PO BID [facility] PRN Reason: Protocol Last Admin: 11/08/17 09:43 Dose: 100 mg Home Med (Home Med) 0 unit PO BID [facility] Last Admin: 11/08/17 09:42 Dose: 1 unit Levothyroxine Sodium (Synthroid) 25 mcg PO 0600 [facility] Last Admin: 03/22/18 05:32 Dose: 25 mcg Lidocaine (Lidoderm) 1 ea TD DAILY [facility] Last Admin: 11/08/17 09:42 Dose: 1 ea Lidocaine HCl (Xylocaine 2%) 1 ea TOP TID PRN; Protocol PRN Reason: Pain, moderate (4-7) Last Admin: 11/08/17 00:02 Dose: 1 applic Metoprolol Tartrate (Lopressor) 25 mg PO 0800,1800 [facility] PRN Reason: Protocol Last Admin: 11/08/17 08:27 Dose: 25 mg Morphine Sulfate (Morphine) 2 mg IVP Q4H PRN; Protocol PRN Reason: Pain, severe (8-10) Last Admin: 11/07/17 17:18 Dose: 2 mg Mupirocin (Bactroban Ointment) 1 gm TOP BID [facility] PRN Reason: Protocol Last Admin: 11/08/17 09:51 Dose: 1 applic Nystatin (Mycostatin Cream) 0 ea TOP TID [facility] Last Admin: 11/08/17 09:52 Dose: 1 applic Ondansetron HCl (Zofran Inj) 4 mg IVP Q4H PRN; Protocol PRN Reason: Nausea/Vomiting Last Admin: 11/03/17 22:08 Dose: 4 mg Pantoprazole Sodium (Protonix Inj) 40 mg IVP 0600 [facility] PRN Reason: Protocol Last Admin: 11/08/17 05:32 Dose: 40 mg Potassium Chloride (Potassium Chloride Oral Soln) 20 meq PO 0800,1800 [facility] PRN Reason: Protocol Last Admin: 11/08/17 08:28 Dose: 20 meq Silver Sulfadiazine (Silvadene 1% 25 Gm) 0 gm TP BID [facility] PRN Reason: Protocol Last Admin: 11/08/17 09:52 Dose: 25 gm Sodium Chloride ([place] Nasal [place]) 0 ml NS TID [facility] PRN Reason: Protocol Last Admin: 11/08/17 09:44 Dose: 1 applic - Labs Labs: 11/08/17 05:43 11/08/17 05:43 - Additional Findings Additional findings: - Constitutional Appears: Non-toxic, No Acute Distress, Cachectic (very cachetic, can see sternotomy wires from CABG pushing up through skin at sterum), Chronically Ill - Head Exam Head Exam: ATRAUMATIC, NORMAL INSPECTION, NORMOCEPHALIC - Eye Exam Eye Exam: EOMI, Normal appearance. absent: Conjunctival injection, Scleral icterus Pupil Exam: absent: Irregular, Unequal - ENT Exam ENT Exam: Mucous Membranes Dry Additional comments: Speech back to baseline No petechiae or active bleeding sources identified No exudates or candidiasis appreciated - Neck Exam Neck exam: Positive for: Full Rom - Respiratory Exam Respiratory Exam: NORMAL BREATHING PATTERN. absent: Accessory Muscle Use, Rales , Rhonchi, Wheezes - Cardiovascular Exam Cardiovascular Exam: REGULAR RHYTHM, RRR, +S1, +S2. absent: Bradycardia, Tachycardia, Irregular Rhythm, +S4 - GI/Abdominal Exam GI & Abdominal Exam: Normal Bowel Sounds, Soft. absent: Diminished Bowel Sounds , Distended, Firm, Hyperactive Bowel Sounds, Hypoactive Bowel Sounds, Rigid, Tenderness - Extremities Exam Extremities exam: Positive for: pedal pulses present. Negative for: calf tenderness, pedal edema, tenderness Additional comments: mildly waxy-like skin at bilateral LE from extending from feet to ankles distal LE warm to palpation - Neurological Exam Neurological exam: Alert, Oriented x3 Additional comments: following all commands appropriately, moving all extremities spontaneously motor appears grossly intact and equal bilaterally - Psychiatric Exam Psychiatric exam: Normal Affect, Normal Mood - Skin Skin Exam: Dry, Intact, Normal Color, Warm (Except as listed below) Additional comments: Sternotomy wires visualized pushing up skin at sternum, right chest port easily visualized through skin, but neither with breakdown or breakthrough of skin Left sided rash/cellulitis, patchy, extending from left posterior neck to left arm, shoulder, and left superior chest wall involvement. 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 He has since been transferred to TCU for reconditioning while receiving additional antibiotics. 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 (s/p radiation and Erbitux therapy) HTN CAD s/p CABG Expanding rash along left neck/shoulder/arm, r/o cellulitis vs drug reaction - stable Shortness of breath - improved Increased difficulty swallowing - improved Hyponatremia, likely SIADH - improved -ID following, appreciate their recs; pt currently on Linezolid and Bactroban cream, recs skin biopsy to test for fungals -Continue ASA and Plavix given hx of CAD s/p CABG, continue Lipitor -continue metolazone, Metoprolol -Continue Protonix for GI ppx -[employer] consulted for tube feeding until swallow study passed, would rec 7-8 cans of Jevity per day, but patient reports only able to tolerate 4-5 per day -Echo obtained, notable for EF 63%, mild aortic sclerosis, otherwise unremarkable -GI consulted for difficulty swallowing, appreciate their recs -Nephro consulted for hyponatremia, appreciate their recs; likely SIADH based on labs, improved after 3 doses of tolvaptam, restrict PO fluids, no further tolvaptam; sodium downtrending x2 days (141 -> 137 -> 134), continue to monitor as per nephro -Endo consulted, appreciate their recs; 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 Smith.
--- NOTE | 2017-11-08 12:48 | PN ---
DATE: SUBJECTIVE: The patient is currently seen lying comfortable supine in bed in the TCU. PEG tube feedings are infusing. MEDICATIONS: Medication list reviewed. The patient is currently on Mupirocin, Ecotrin, Famvir, Amitiza, Lidoderm, Lipitor, Lopressor, p.r.n. morphine, Nystatin, Neurontin, Norvasc, [place] nasal spray, Plavix, oral potassium supplements, Protonix, Silvadene, Synthroid, Xylocaine 2% topical ointment and Zofran p.r.n. OBJECTIVE: VITAL SIGNS: Blood pressure 125/68, pulse 90, temperature 97.8. Respiratory rate 20, oxygen saturation is 95%. HEENT: Shows him to be normocephalic, atraumatic. Conjunctivae are pale. Sclerae nonicteric. NECK: Supple with radiation changes and hyperpigmentation. Erythema of the left side of his neck extending down to the left anterior chest wall. The area of superinfection appears to have cleared. No neck vein distention. CHEST: Clear to auscultation and percussion. No rales, rhonchi or wheezing. CARDIOVASCULAR: Regular rate and rhythm without murmurs, rubs or gallops. ABDOMEN: Soft. Bowel sounds normal. The patient has a PEG tube in place and is receiving Jevity 40 mL an hour. EXTREMITIES: Show no cyanosis, clubbing or edema of his lower extremity. LABORATORY DATA AND IMAGING: CBC: White blood cell count today 8.3, hemoglobin 8.5 with a platelet count of 230,000. Chemistry showed normal electrolytes. Sodium is, however, starting to drop. It was as high as 141 post tolvaptan, now 134. Glucose 107. Calcium, phosphorus, magnesium level are all normal. Microbiology: Wound cultures of the left shoulder were positive for MRSA. ASSESSMENT: 1. Hyponatremia. This is in the setting of the syndrome of inappropriate antidiuretic hormone secretion. The patient has laryngeal cancer stage IV. The patient had responded nicely to three doses of tolvaptan with an increase of sodium up to 141. Presently, the patient is continuing fluid restriction. There is minimal flushes with his percutaneous endoscopic gastrostomy tube feedings. His oral fluid intake is also restricted. We will need to continue to monitor the trend downward of his sodium level, but it still remains in a normal range. 2. Borderline to mild hypothyroidism. The patient was seen by Endocrinology and was started on low-dose thyroid replacement therapy. 3. History of stage IV laryngeal cancer. The patient is receiving radiation therapy, which is ongoing and continuing Erbitux. 4. History of hypertension. Blood pressure control is acceptable. The patient had been started on low-dose Norvasc therapy along with beta-lloyd therapy. Today's blood pressures are excellent with systolics in the 120s and diastolics in the 70 range. 5. Status post cellulitis of his neck and left anterior chest wall and an area of radiation therapy with superinfection. The patient has completed a course of antibiotic therapy. 6. History of hypokalemia. The patient continues on potassium supplements. 7. History of chronic obstructive pulmonary disease secondary to long history of cigarette smoking. 8. History of hyperlipidemia, on diet and statin therapy. 9. History of atherosclerotic heart disease, status post coronary artery bypass graft, stable. 10. History of anemia, in part secondary to underlying malignancy. PLAN 1. Discussed with the patient the need to continue restricting p.o. fluids. 2. Discussed with staff on TCU minimize flushes for his PEG tube feedings. 3. Continue low-dose thyroid replacement therapy. 4. Continue low-dose calcium channel lloyd therapy along with beta-lloyd therapy for the mild elevation of his systolic blood pressure. 5. We will continue to follow labs periodically during the remainder of his stay in the TCU. Camilo Trammell MD
[2017-11-08] MEDS: Morphine 2 mg/ml ISec IVP PRN (14:31)
--- NOTE | 2017-11-08 17:03 | CP.PCM.PN ---
Subjective - Date & Time of Evaluation Date of Evaluation: 11/08/17 Time of Evaluation: 11:50 - Subjective Subjective: Feeling better, less pain on the left chest and shoulder area, no fevers. Objective - Vital Signs/Intake and Output Vital Signs (last 24 hours): Temp Pulse Resp BP Pulse Ox 98.1 F 88 16 119/72 94 L 11/08/17 10:00 11/08/17 10:00 11/08/17 10:00 11/08/17 10:00 11/08/17 10:00 - Medications Medications: Current Medications Amlodipine Besylate (Norvasc) 5 mg PO DAILY [facility] Last Admin: 11/08/17 09:43 Dose: 5 mg Aspirin (Ecotrin) 81 mg PO 0800 [facility] PRN Reason: Protocol Last Admin: 11/08/17 08:24 Dose: 81 mg Atorvastatin Calcium (Lipitor) 10 mg PO DIN [facility] PRN Reason: Protocol Last Admin: 11/07/17 17:13 Dose: 10 mg Clopidogrel Bisulfate (Plavix) 75 mg PEG DAILY [facility] Last Admin: 11/08/17 09:44 Dose: 75 mg Famciclovir (Famvir) 500 mg PO Q12 [facility] PRN Reason: Protocol Last Admin: 11/08/17 09:42 Dose: 500 mg Gabapentin (Neurontin) 100 mg PO BID [facility] PRN Reason: Protocol Last Admin: 11/08/17 09:43 Dose: 100 mg Home Med (Home Med) 0 unit PO BID [facility] Last Admin: 11/08/17 09:42 Dose: 1 unit Levothyroxine Sodium (Synthroid) 25 mcg PO 0600 [facility] Last Admin: 11/08/17 05:32 Dose: 25 mcg Lidocaine (Lidoderm) 1 ea TD DAILY [facility] Last Admin: 11/08/17 09:42 Dose: 1 ea Lidocaine HCl (Xylocaine 2%) 1 ea TOP TID PRN; Protocol PRN Reason: Pain, moderate (4-7) Last Admin: 11/08/17 00:02 Dose: 1 applic Metoprolol Tartrate (Lopressor) 25 mg PO 0800,1800 [facility] PRN Reason: Protocol Last Admin: 11/08/17 08:27 Dose: 25 mg Morphine Sulfate (Morphine) 2 mg IVP Q4H PRN; Protocol PRN Reason: Pain, severe (8-10) Last Admin: 11/08/17 14:31 Dose: 2 mg Mupirocin (Bactroban Ointment) 1 gm TOP BID [facility] PRN Reason: Protocol Last Admin: 11/08/17 09:51 Dose: 1 applic Nystatin (Mycostatin Cream) 0 ea TOP TID [facility] Last Admin: 11/08/17 15:52 Dose: Not Given Ondansetron HCl (Zofran Inj) 4 mg IVP Q4H PRN; Protocol PRN Reason: Nausea/Vomiting Last Admin: 11/03/17 22:08 Dose: 4 mg Pantoprazole Sodium (Protonix Inj) 40 mg IVP 0600 [facility] PRN Reason: Protocol Last Admin: 11/08/17 05:32 Dose: 40 mg Potassium Chloride (Potassium Chloride Oral Soln) 20 meq PO 0800,1800 [facility] PRN Reason: Protocol Last Admin: 11/08/17 08:28 Dose: 20 meq Silver Sulfadiazine (Silvadene 1% 25 Gm) 0 gm TP BID [facility] PRN Reason: Protocol Last Admin: 11/08/17 09:52 Dose: 25 gm Sodium Chloride ([place] Nasal [place]) 0 ml NS TID [facility] PRN Reason: Protocol Last Admin: 11/08/17 13:32 Dose: 1 applic - Labs Labs: 11/08/17 05:43 11/08/17 05:43 - Constitutional Appears: Cachectic, Chronically Ill - Head Exam Head Exam: NORMAL INSPECTION - ENT Exam ENT Exam: Mucous Membranes Moist - Neck Exam Neck Exam: absent: Meningismus - Respiratory Exam Respiratory Exam: Decreased Breath Sounds Additional comments: left neck, chest and shoulder area with decreased erythema - Cardiovascular Exam Cardiovascular Exam: +S1, +S2 - GI/Abdominal Exam GI & Abdominal Exam: Soft. absent: Tenderness Assessment and Plan - Assessment and Plan (Free Text) Plan: Assessment superinfection of left side of neck with bacteria (MRSA), R/O HSV histroy of radiation dermatitis on left side of neck with superimposed cellulitis, growing MRSA acute renal failure, R/O Vancomycin-induced nephrotoxicity, slowly improving throat cancer S/P port placement on chemotherapy and radiation therapy S/P PEG placement Plan continue Zyvox and Bactroban ointment day 9, and famvir; wound cx showing MRSA; complete 7-10 days of therapy overall prognosis is poor
--- NOTE | 2017-11-08 19:44 | PN ---
DATE: ENDOCRINOLOGY FOLLOWUP NOTE LOCATION: Room 319. SUBJECTIVE: This is an 87-year-old male with ongoing IV antibiotic management for recent bacteremia and also undergoing acute physical and occupational therapy for deconditioning in the medical floor as noted and is being followed closely now for metabolic management of hypothyroidism as noted thereof. He remains clinically euthyroid at this time with evidence biochemically of early hypothyroxinemia with a total T4 of 5.5 and a TSH of 8.23 as noted. His latest chemistry showed a BUN of 15, sodium 134, potassium 3.9, chloride 98, CO2 of 30, glucose 107, and creatinine 0.6. So, at this time, we will continue the same levothyroxine given as 25 mcg once daily before breakfast as ordered. We will titrate incrementally as indicated to optimize metabolic control. We will follow and advise accordingly. Michelle Richardson MD
[2017-11-09] MEDS: Morphine 2 mg/ml ISec IVP PRN ×3 (04:02→21:08)
[2017-11-09] MEDS: Levothyroxine 25 MCG TAB PO SCH (05:22)
[2017-11-09 05:56] LABS: BASO # 0.02 K/mm3 (0.0-2.0); BASO % 0.2 % (0.0-3.0); EOS # 0.7 (0.0-0.7); EOS % 7.9 % (1.5-5.0); GRAN # 5.78 (1.4-6.5); GRAN % 64.1 % (50.0-68.0); HEMOGLOBIN 8.1 g/dL (14.0-18.0); LYMPH # 1.4 (1.2-3.4); LYMPH % 15.6 % (22.0-35.0); MEAN CELL VOLUME 86.8 fl (80.0-105.0); MEAN CORPUSCULAR HEMOGLOBIN 28.8 pg (25.0-35.0); MEAN CORPUSCULAR HGB CONC 33.2 g/dl (31.0-37.0); MEAN PLATELET VOLUME 8.8 fl (7.0-11.0); MONO # 1.1 (0.1-0.6); MONO % 12.2 % (1.0-6.0); RBC 2.81 10^6/uL (3.5-6.1); RED CELL DISTRIBUTION WIDTH 14.3 % (11.5-14.5)
[2017-11-09 06:18] LABS: IRON 22 ug/dL (45-180)
[2017-11-09 06:27] LABS: % IRON SATURATION 15 % (20-55); TOTAL IRON BINDING CAPACITY 154 ug/dL (261-462)
[2017-11-09 07:05] LABS: ALB/GLOB RATIO 0.9 (1.1-1.8); ALBUMIN 2.6 g/dL (3.0-4.8); ALT/SGPT 32 U/L (7-56); AST/SGOT 30 U/L (17-59); BLOOD UREA NITROGEN 20 mg/dL (7-21); CALCIUM 8.6 mg/dL (8.4-10.5); GFR AFRICAN-AMERICAN > 60; GFR NON-AFRICAN AMERICAN > 60
--- NOTE | 2017-11-09 08:16 | PN ---
DATE: 11/08/2017 SUBJECTIVE: This patient was seen and evaluated earlier today. He is tolerating G-tube feeding. OBJECTIVE: VITAL SIGNS: On examination, afebrile, blood pressure is 127/69, pulse rate is 82. HEENT: Atraumatic, anicteric. NECK: Supple. HEART: S1 and S2 heard. LUNGS: Bilateral air entry present. ABDOMEN: Soft. G-tube in place. SKIN: The left side of his face and neck, the skin lesions have significant improvement noticed. IMPRESSION AND PLAN: This is an 87-year-old patient with head and neck cancer, status post radiation and chemo, admitted with extensive skin lesions, clinically improving now. Patient was evaluated by ENT. Patient was also evaluated by Speech Therapy. The present plan is to continue pleasure pureed food with assistance and continue the G-tube feeding. We will continue to closely followup with his care. Thank you very much. Pj Foreman MD MTDDania
[2017-11-09] MEDS: Potassium Chloride 20 mEq/15 ml LIQ UD PO SCH ×2 (08:21→18:02)
[2017-11-09] MEDS: Lidocaine 2% Jelly (30 ml) TOP PRN ×4 (08:24→21:03)
[2017-11-09] MEDS: Nystatin 100,000 Units/gm Cream(15 gm) TOP SCH ×3 (10:00→18:01)
--- NOTE | 2017-11-09 10:20 | CP.PCM.PN ---
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 Patient seen and examined at bedside in the TCU. Speech remains at baseline today. Reports improved pain with addition of Gabapentin overnight, but had discomfort with his lidoderm patch, so it was removed, and his pain has been better since (will d/c the lidoderm patch). Continues to tolerate diet well. Denies chest pain, shortness of breath, nausea, diarrhea, emesis, hemoptysis, diarrhea, melena. Reports ambulating well with PT. Objective - Vital Signs/Intake and Output Vital Signs (last 24 hours): Temp Pulse Resp BP Pulse Ox 97.6 F 96 H 20 95/53 L 93 L 11/09/17 06:00 11/09/17 06:00 11/09/17 06:00 11/09/17 08:21 11/09/17 06:00 - Medications Medications: Current Medications Amlodipine Besylate (Norvasc) 5 mg PO DAILY [facility] Last Admin: 11/08/17 09:43 Dose: 5 mg Aspirin (Ecotrin) 81 mg PO 0800 [facility] PRN Reason: Protocol Last Admin: 11/09/17 08:20 Dose: 81 mg Atorvastatin Calcium (Lipitor) 10 mg PO DIN [facility] PRN Reason: Protocol Last Admin: 11/08/17 17:28 Dose: 10 mg Clopidogrel Bisulfate (Plavix) 75 mg PEG DAILY [facility] Last Admin: 11/08/17 09:44 Dose: 75 mg Famciclovir (Famvir) 500 mg PO Q12 [facility] PRN Reason: Protocol Last Admin: 11/08/17 21:28 Dose: 500 mg Gabapentin (Neurontin) 100 mg PO BID [facility] PRN Reason: Protocol Last Admin: 11/08/17 17:31 Dose: 100 mg Home Med (Home Med) 0 unit PO BID [facility] Last Admin: 11/08/17 17:27 Dose: 1 unit Levothyroxine Sodium (Synthroid) 25 mcg PO 0600 [facility] Last Admin: 11/09/17 05:22 Dose: 25 mcg Lidocaine (Lidoderm) 1 ea TD DAILY [facility] Last Admin: 11/08/17 09:42 Dose: 1 ea Lidocaine HCl (Xylocaine 2%) 1 ea TOP TID PRN; Protocol PRN Reason: Pain, moderate (4-7) Last Admin: 11/09/17 08:24 Dose: 1 applic Linezolid (Zyvox) 600 mg PO BID [facility] PRN Reason: Protocol Metoprolol Tartrate (Lopressor) 25 mg PO 0800,1800 [facility] PRN Reason: Protocol Last Admin: 11/09/17 08:21 Dose: Not Given Morphine Sulfate (Morphine) 2 mg IVP Q4H PRN; Protocol PRN Reason: Pain, severe (8-10) Last Admin: 11/09/17 04:02 Dose: 2 mg Mupirocin (Bactroban Ointment) 1 gm TOP BID [facility] PRN Reason: Protocol Last Admin: 11/08/17 17:27 Dose: 1 applic Nystatin (Mycostatin Cream) 0 ea TOP TID [facility] Last Admin: 11/08/17 17:30 Dose: 1 applic Ondansetron HCl (Zofran Inj) 4 mg IVP Q4H PRN; Protocol PRN Reason: Nausea/Vomiting Last Admin: 11/03/17 22:08 Dose: 4 mg Pantoprazole Sodium (Protonix Inj) 40 mg IVP 0600 [facility] PRN Reason: Protocol Last Admin: 11/09/17 05:23 Dose: 40 mg Potassium Chloride (Potassium Chloride Oral Soln) 20 meq PO 0800,1800 [facility] PRN Reason: Protocol Last Admin: 11/09/17 08:21 Dose: 20 meq Silver Sulfadiazine (Silvadene 1% 25 Gm) 0 gm TP BID [facility] PRN Reason: Protocol Last Admin: 11/08/17 17:32 Dose: 25 gm Sodium Chloride ([place] Nasal [place]) 0 ml NS TID [facility] PRN Reason: Protocol Last Admin: 11/08/17 17:31 Dose: 1 applic - Labs Labs: 11/09/17 05:41 11/09/17 05:41 - Additional Findings Additional findings: - Constitutional Appears: Non-toxic, No Acute Distress, Cachectic (very cachetic, can see sternotomy wires from CABG pushing up through skin at sterum), Chronically Ill - Head Exam Head Exam: ATRAUMATIC, NORMAL INSPECTION, NORMOCEPHALIC - Eye Exam Eye Exam: EOMI, Normal appearance. absent: Conjunctival injection, Scleral icterus Pupil Exam: absent: Irregular, Unequal - ENT Exam ENT Exam: Mucous Membranes Dry Additional comments: Speech at baseline No petechiae or active bleeding sources identified No exudates or candidiasis appreciated - Neck Exam Neck exam: Positive for: Full Rom - Respiratory Exam Respiratory Exam: NORMAL BREATHING PATTERN. absent: Accessory Muscle Use, Rales , Rhonchi, Wheezes - Cardiovascular Exam Cardiovascular Exam: REGULAR RHYTHM, RRR, +S1, +S2. absent: Bradycardia, Tachycardia, Irregular Rhythm, +S4 - GI/Abdominal Exam GI & Abdominal Exam: Normal Bowel Sounds, Soft. absent: Diminished Bowel Sounds , Distended, Firm, Hyperactive Bowel Sounds, Hypoactive Bowel Sounds, Rigid, Tenderness - Extremities Exam Extremities exam: Positive for: pedal pulses present. Negative for: calf tenderness, pedal edema, tenderness Additional comments: mildly waxy-like skin at bilateral LE from extending from feet to ankles distal LE warm to palpation - Neurological Exam Neurological exam: Alert, Oriented x3 Additional comments: following all commands appropriately, moving all extremities spontaneously motor appears grossly intact and equal bilaterally - Psychiatric Exam Psychiatric exam: Normal Affect, Normal Mood - Skin Skin Exam: Dry, Intact, Normal Color, Warm (Except as listed below) Additional comments: Sternotomy wires visualized pushing up skin at sternum, right chest port easily visualized through skin, but neither with breakdown or breakthrough of skin Left sided rash/cellulitis, patchy, extending from left posterior neck to left arm, shoulder, and left superior chest wall involvement. 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 He has since been transferred to TCU for reconditioning while receiving additional antibiotics. 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 -ID following, appreciate their recs; pt currently on Linezolid and Bactroban cream and Famvir, 7-10 days total -Continue ASA and Plavix given hx of CAD s/p CABG, continue Lipitor -continue metolazone, Metoprolol -Continue Protonix for GI ppx -Fur Tanner consulted for tube feeding until swallow study passed, would rec 7-8 cans of Jevity per day, but patient reports only able to tolerate 4-5 per day -Echo obtained, notable for EF 63%, mild aortic sclerosis, otherwise unremarkable -GI consulted for difficulty swallowing, appreciate their recs -Nephro consulted for hyponatremia, appreciate their recs; likely SIADH based on labs, improved after 3 doses of tolvaptam, restrict PO fluids, no further tolvaptam; sodium downtrending x3 days (141 -> 137 -> 134 -> 132 today) -Endo consulted, appreciate their recs; 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, continue synthroid 25 mcg daily -as per Speech therapist, finely chopped with nectar thickened liquids; switched to pureed as per GI; will ask Speech Therapist about possibility for orophayngeal deglutation swallow exercises -ENT consulted, appreciate their recs; bedside laryngoscopy revealed no epiglotis tumor, some erythema and edema of the epiglottis, normal vocal cords, recs f/u as outpt but no acute interventions indicated at this time -Gabapentin 100mg BID for neuropathic pain 2/2 possible herpetic rxn at cellulitis site, can titrate up as needed (max 300mg BID) -Hgb trending down x2 days, 8.1 today (was 8.5), pending 2 units pRBC tranfusion today; avoid ESAs in laryngeal ca Patient reviewed and discussed at length with attending, Dr. Smith.
[2017-11-09] MEDS: LUBIPROSTONE 24 MCG PO SCH ×2 (10:31→17:56)
[2017-11-09] MEDS: Silver Sulfadiazine 1% Cream (25 gm) TP SCH ×2 (10:37→18:02)
--- NOTE | 2017-11-09 12:18 | CP.PCM.PN ---
Subjective - Date & Time of Evaluation Date of Evaluation: 11/09/17 Time of Evaluation: 11:35 - Subjective Subjective: Patient is feeling better, no nausea, no diarrhea, less pain on the left shoulder and chest area. Objective - Vital Signs/Intake and Output Vital Signs (last 24 hours): Temp Pulse Resp BP Pulse Ox 97.6 F 96 H 20 95/53 L 93 L 11/09/17 06:00 11/09/17 06:00 11/09/17 06:00 11/09/17 08:21 11/09/17 06:00 - Medications Medications: Current Medications Amlodipine Besylate (Norvasc) 5 mg PO DAILY [facility] Last Admin: 11/08/17 09:43 Dose: 5 mg Aspirin (Ecotrin) 81 mg PO 0800 [facility] PRN Reason: Protocol Last Admin: 11/09/17 08:20 Dose: 81 mg Atorvastatin Calcium (Lipitor) 10 mg PO DIN [facility] PRN Reason: Protocol Last Admin: 11/08/17 17:28 Dose: 10 mg Clopidogrel Bisulfate (Plavix) 75 mg PEG DAILY [facility] Last Admin: 11/08/17 09:44 Dose: 75 mg Famciclovir (Famvir) 500 mg PO Q12 [facility] PRN Reason: Protocol Last Admin: 11/08/17 21:28 Dose: 500 mg Gabapentin (Neurontin) 100 mg PO BID [facility] PRN Reason: Protocol Last Admin: 11/08/17 17:31 Dose: 100 mg Home Med (Home Med) 0 unit PO BID [facility] Last Admin: 11/08/17 17:27 Dose: 1 unit Levothyroxine Sodium (Synthroid) 25 mcg PO 0600 [facility] Last Admin: 11/09/17 05:22 Dose: 25 mcg Lidocaine (Lidoderm) 1 ea TD DAILY [facility] Last Admin: 11/08/17 09:42 Dose: 1 ea Lidocaine HCl (Xylocaine 2%) 1 ea TOP TID PRN; Protocol PRN Reason: Pain, moderate (4-7) Last Admin: 11/09/17 08:24 Dose: 1 applic Metoprolol Tartrate (Lopressor) 25 mg PO 0800,1800 [facility] PRN Reason: Protocol Last Admin: 11/09/17 08:21 Dose: Not Given Morphine Sulfate (Morphine) 2 mg IVP Q4H PRN; Protocol PRN Reason: Pain, severe (8-10) Last Admin: 11/09/17 04:02 Dose: 2 mg Mupirocin (Bactroban Ointment) 1 gm TOP BID [facility] PRN Reason: Protocol Last Admin: 11/08/17 17:27 Dose: 1 applic Nystatin (Mycostatin Cream) 0 ea TOP TID [facility] Last Admin: 11/08/17 17:30 Dose: 1 applic Ondansetron HCl (Zofran Inj) 4 mg IVP Q4H PRN; Protocol PRN Reason: Nausea/Vomiting Last Admin: 11/03/17 22:08 Dose: 4 mg Pantoprazole Sodium (Protonix Inj) 40 mg IVP 0600 [facility] PRN Reason: Protocol Last Admin: 11/09/17 05:23 Dose: 40 mg Potassium Chloride (Potassium Chloride Oral Soln) 20 meq PO 0800,1800 [facility] PRN Reason: Protocol Last Admin: 11/09/17 08:21 Dose: 20 meq Silver Sulfadiazine (Silvadene 1% 25 Gm) 0 gm TP BID [facility] PRN Reason: Protocol Last Admin: 11/08/17 17:32 Dose: 25 gm Sodium Chloride ([place] Nasal [place]) 0 ml NS TID [facility] PRN Reason: Protocol Last Admin: 11/08/17 17:31 Dose: 1 applic - Labs Labs: 11/09/17 05:41 11/09/17 05:41 - Constitutional Appears: Chronically Ill - Head Exam Head Exam: NORMAL INSPECTION - ENT Exam ENT Exam: Mucous Membranes Moist - Neck Exam Neck Exam: absent: Meningismus Additional comments: left chest and neck area and shoulder area with decreasing erythema - Respiratory Exam Respiratory Exam: Decreased Breath Sounds - Cardiovascular Exam Cardiovascular Exam: +S1, +S2 - GI/Abdominal Exam GI & Abdominal Exam: Soft. absent: Tenderness Assessment and Plan - Assessment and Plan (Free Text) Plan: Assessment superinfection of left side of neck with bacteria (MRSA), R/O HSV histroy of radiation dermatitis on left side of neck with superimposed cellulitis, growing MRSA acute renal failure, R/O Vancomycin-induced nephrotoxicity, slowly improving throat cancer S/P port placement on chemotherapy and radiation therapy S/P PEG placement Plan continue Zyvox and Bactroban ointment day 10, and famvir; wound cx showing MRSA ; complete 7-10 days of therapy - will d/c after today overall prognosis is poor
[2017-11-09] MEDS: Lidocaine 5% Patch TD SCH (12:39)
--- NOTE | 2017-11-09 15:36 | CON ---
DATE: 11/09/2017 NEUROLOGY CONSULTATION CHIEF COMPLAINT: Left neck and left shoulder and arm neuropathic pain. HISTORY OF PRESENT ILLNESS: This is an 87-year-old man with past medical history of stage LALO laryngeal carcinoma extending into the evolving thyroid/cricoid cartilage, on radiation and Erbitux therapy, status post PEG tube for feeds; hypertension; CAD, status post CABG; radiation dermatitis with MRSA cellulitis with prior unspecified skin tumors; who presented to the hospital with shortness of breath and worsening neck and left shoulder rash with an increased difficulty in swallowing over the past few days and was transferred to TCU for reconditioning while receiving additional antibiotics. I was consulted for the expanding rash as well as the neuropathic pain on the left neck, shoulder and arm, which is most likely secondary to underlying neuralgia, herpetic type given that the skin lesions. He did respond to low-dose gabapentin. We will recommend to increase the gabapentin and continue with physical therapy for reconditioning stay. PAST MEDICAL HISTORY: As above. SOCIAL HISTORY: No illicit drug use, smoking or EtOH abuse at this time. FAMILY HISTORY: Noncontributory. ALLERGIES: NO KNOWN DRUG ALLERGIES. MEDICATIONS: Reviewed by nurse reconciliation sheet. REVIEW OF SYSTEMS: Fourteen-point review of systems negative except as per the HPI. PHYSICAL EXAMINATION: VITAL SIGNS: Temperature 98.3, pulse rate of 88, blood pressure of 96/49, respiratory rate of 18, oxygen saturation 98% by room air. GENERAL: The patient is sitting up in the chair, in no acute distress. HEENT: Atraumatic, normocephalic. PERRLA. Extraocular muscles intact. NECK: Supple. No JVD. No adenopathy noted. LUNGS: Clear to auscultation. No adventitious sounds. HEART: S1, S2. Normal rate and rhythm. No murmurs, rubs or gallops. ABDOMEN: Soft, nontender and nondistended. Bowel sounds are present. EXTREMITIES: No clubbing. No cyanosis. Peripheral pulses 2+ felt bilaterally. Has a mild waxy light skin at the bilateral lower extremities extending from the feet to the ankles. He has rash on the left part of the neck to the shoulder. NEUROLOGIC: The patient is alert and oriented to person, place and year. Recall after 5 minutes is 0/3. Poor attention span. Slow thought process. Cranial nerves II through XII are intact. Motor exam: Moves all extremities equally. Slightly increased tone throughout. Very cachectic looking. Sensory examination: Decreased light touch and pinprick up to the calves bilaterally. Decreased vibration of the toes. DTRs are 2+ throughout and 1 at both knees and ankles. Coordination: [id number] intact. No dysmetria noted. Gait is deferred for now. LABORATORY DATA: Sodium is 132, potassium 4.1, chloride of 98, carbon dioxide of 28, BUN of 20, creatinine 0.7, random glucose of 111. 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 At this time, we will recommend, 1. Gabapentin increasing to 300 mg p.o. b.i.d. for neuropathic relief. 2. Continue to monitor electrolytes and correct accordingly. 3. Continue with PT and OT for reconditioned state. 4. Follow up with Oncology in regards to his underlying history of laryngeal carcinoma. At this time, continue current present medical management. Thank you for this consult. Melvin Lockett MD
--- NOTE | 2017-11-09 16:01 | CP.PCM.PN ---
Subjective - Date & Time of Evaluation Date of Evaluation: 11/09/17 Time of Evaluation: 15:59 - Subjective Subjective: pt seen and examined, getting blood in out patient oncology, hoarseness stable denies neck pain Objective - Vital Signs/Intake and Output Vital Signs (last 24 hours): Temp Pulse Resp BP Pulse Ox 98.3 F 96 H 18 95/53 L 98 11/09/17 10:04 11/09/17 10:32 11/09/17 10:04 11/09/17 10:32 11/09/17 10:04 - Medications Medications: Current Medications Amlodipine Besylate (Norvasc) 5 mg PO DAILY [facility] Last Admin: 11/09/17 10:32 Dose: Not Given Aspirin (Ecotrin) 81 mg PO 0800 [facility] PRN Reason: Protocol Last Admin: 11/09/17 08:20 Dose: 81 mg Atorvastatin Calcium (Lipitor) 10 mg PO DIN [facility] PRN Reason: Protocol Last Admin: 11/08/17 17:28 Dose: 10 mg Clopidogrel Bisulfate (Plavix) 75 mg PEG DAILY [facility] Last Admin: 11/09/17 10:37 Dose: 75 mg Famciclovir (Famvir) 500 mg PO Q12 [facility] PRN Reason: Protocol Last Admin: 11/09/17 10:31 Dose: 500 mg Gabapentin (Neurontin) 300 mg PO BID [facility] PRN Reason: Protocol Home Med (Home Med) 0 unit PO BID [facility] Last Admin: 11/09/17 10:31 Dose: Not Given Levothyroxine Sodium (Synthroid) 25 mcg PO 0600 [facility] Last Admin: 11/09/17 05:22 Dose: 25 mcg Lidocaine HCl (Xylocaine 2%) 0 ea TOP TID PRN PRN Reason: Pain, Mild (1-3) Last Admin: 11/09/17 10:00 Dose: 1 applic Linezolid (Zyvox) 600 mg PO BID [facility] PRN Reason: Protocol Last Admin: 11/09/17 10:39 Dose: 600 mg Metoprolol Tartrate (Lopressor) 25 mg PO 0800,1800 [facility] PRN Reason: Protocol Last Admin: 11/09/17 08:21 Dose: Not Given Morphine Sulfate (Morphine) 2 mg IVP Q4H PRN; Protocol PRN Reason: Pain, severe (8-10) Last Admin: 11/09/17 13:39 Dose: 2 mg Mupirocin (Bactroban Ointment) 1 gm TOP BID [facility] PRN Reason: Protocol Last Admin: 11/09/17 10:00 Dose: 1 applic Nystatin (Mycostatin Cream) 0 ea TOP TID [facility] Last Admin: 11/09/17 13:18 Dose: 1 applic Ondansetron HCl (Zofran Inj) 4 mg IVP Q4H PRN; Protocol PRN Reason: Nausea/Vomiting Last Admin: 11/03/17 22:08 Dose: 4 mg Pantoprazole Sodium (Protonix Inj) 40 mg IVP 0600 [facility] PRN Reason: Protocol Last Admin: 11/09/17 05:23 Dose: 40 mg Potassium Chloride (Potassium Chloride Oral Soln) 20 meq PO 0800,1800 [facility] PRN Reason: Protocol Last Admin: 11/09/17 08:21 Dose: 20 meq Silver Sulfadiazine (Silvadene 1% 25 Gm) 0 gm TP BID [facility] PRN Reason: Protocol Last Admin: 11/09/17 10:37 Dose: 1 gm Sodium Chloride ([place] Nasal [place]) 0 ml NS TID [facility] PRN Reason: Protocol Last Admin: 11/09/17 13:21 Dose: 1 applic - Labs Labs: 11/09/17 05:41 11/09/17 05:41 - Head Exam Head Exam: ATRAUMATIC, NORMAL INSPECTION, NORMOCEPHALIC - Eye Exam Eye Exam: EOMI, Normal appearance, PERRL Pupil Exam: NORMAL ACCOMODATION - ENT Exam ENT Exam: Mucous Membranes Dry Additional comments: dry oropharynx - Neck Exam Neck Exam: Normal Inspection - Neurological Exam Neurological Exam: Alert, Awake - Skin Skin Exam: Normal Color, Warm Assessment and Plan (1) Cellulitis Status: Acute (2) Coronary arteriosclerosis Status: Acute (3) Coronary artery disease Status: Acute (4) Hyponatremia Status: Acute (5) Laryngeal cancer Status: Chronic (6) Dyspnea on exertion Status: Resolved - Assessment and Plan (Free Text) Plan: continue with conservative management and oral care, f/u as out patient for further w/u
--- NOTE | 2017-11-09 16:02 | PN ---
DATE: ENDOCRINOLOGY FOLLOWUP NOTE LOCATION: Room 319 U. SUBJECTIVE: This is an 87-year-old male with recent overt hypothyroidism, currently on levothyroxine at the very low dose of 25 mcg daily as tolerated and is being followed closely for metabolic management. His latest chemistries showed a BUN of 20, sodium 132, potassium 4.1, chloride 98, CO2 of 28, glucose 111 and creatinine 0.7. The latest thyroid studies showed a T4 of 5.5 with a TSH of 8.23. So at this time, we will continue the same low-dose levothyroxine given as 25 mcg daily as ordered. We will titrate incrementally as indicated to optimize metabolic control. We will follow and advise accordingly. Michelle Richardson MD
[2017-11-10] MEDS: Pantoprazole 40 mg EC Tab PO SCH (05:43)
[2017-11-10] MEDS: Levothyroxine 25 MCG TAB PO SCH (05:43)
[2017-11-10 07:29] LABS: BASO # 0.01 K/mm3 (0.0-2.0); BASO % 0.1 % (0.0-3.0); EOS # 0.1 (0.0-0.7); EOS % 0.5 % (1.5-5.0); GRAN # 8.77 (1.4-6.5); GRAN % 75.1 % (50.0-68.0); LYMPH # 1.6 (1.2-3.4); LYMPH % 13.3 % (22.0-35.0); MEAN CELL VOLUME 84.9 fl (80.0-105.0); MEAN CORPUSCULAR HEMOGLOBIN 28.8 pg (25.0-35.0); MEAN CORPUSCULAR HGB CONC 33.9 g/dl (31.0-37.0); MEAN PLATELET VOLUME 9.4 fl (7.0-11.0); MONO # 1.3 (0.1-0.6); RBC 3.65 10^6/uL (3.5-6.1); RED CELL DISTRIBUTION WIDTH 14.5 % (11.5-14.5); WHITE BLOOD COUNT 11.7 10^3/ul (4.5-11.0)
[2017-11-10 07:30] LABS: HEMOGLOBIN 10.5 g/dL (14.0-18.0)
[2017-11-10 07:39] LABS: ALBUMIN 2.9 g/dL (3.0-4.8); ALT/SGPT 30 U/L (7-56); AST/SGOT 32 U/L (17-59); BLOOD UREA NITROGEN 26 mg/dL (7-21); CALCIUM 9.1 mg/dL (8.4-10.5); GFR AFRICAN-AMERICAN > 60; GFR NON-AFRICAN AMERICAN > 60
[2017-11-10] MEDS: Potassium Chloride 20 mEq/15 ml LIQ UD PO SCH ×2 (09:07→18:03)
[2017-11-10] MEDS: LUBIPROSTONE 24 MCG PO SCH ×3 (09:12→18:16)
[2017-11-10] MEDS: Nystatin 100,000 Units/gm Cream(15 gm) TOP SCH ×3 (09:13→18:02)
[2017-11-10] MEDS: Silver Sulfadiazine 1% Cream (25 gm) TP SCH ×2 (09:14→18:01)
[2017-11-10] MEDS: Morphine 2 mg/ml ISec IVP PRN ×2 (09:26→13:45)
--- NOTE | 2017-11-10 13:23 | CP.PCM.PN ---
Subjective - Date & Time of Evaluation Date of Evaluation: 11/10/17 Time of Evaluation: 13:19 - Subjective Subjective: Nephrology Consultation Note Covering for Dr Trammell Assessment: Stable Hyponatremia due to SIADH stable Anemia History of throat cancer Plan Serum sodium stable. No need for Samsca at this time. Will consider if sodium keeps dropping Patient on iron supplementation Glycemic control Further work up for as per primary team Thanks for allowing me to participate in care of your patient. Will follow patient with you. Please call if any Qs. Discussed with team Dr Leo Gallardo Office: [phone] Subjective: Noted events overnight. Patients feels okay. Denies chest pain, palpitation, shortness of breath, leg swelling. All other negative Physical Examination: General Appearance: Comfortable, in no acute respiratory distress, co-operative . Ill-appearing, cachexic, debilitated Vitals reviewed and noted as below Head; Atraumatic, normocephalic ENT: no ulcers no thrush. Tongue is midline. Oropharynx: no rash or ulcers. EYES: Pupils are equal, round and reactive to light accommodation. Eye muscles and extraocular movement intact. Sclera is anicteric. Neck;Left Neck and Upper chest Skin scar noted Lungs: Normal respiratory rate/effort. Breath sounds bilateral equal and clear Heart: Normal rate. s1s2 normal. No rub or gallop. Extremities: no edema. No varicose veins Neurological: Patient is alert, awake and oriented to person, place and time. No focal deficit. Strength bilateral appropriate and equal Skin: Warm and dry. Normal turgor. No rash. Palpitation: Normal elasticity for age Abdomen: Abdomen is soft. Bowel sounds +. There is no abdominal tenderness, no guarding/rigidity no organomegaly. Has peg tube Psych: normal insight and normal affect/mood MSK: no joint tenderness or swelling. Digits and nails normal, no deformity : kidney or bladder not palpable Labs/imaging reviewed. Past medical history, past surgical history, family history, social history, allergy reviewed and noted as below Family hx: no hx of CKD. Rest non-contributory Objective - Vital Signs/Intake and Output Vital Signs (last 24 hours): Temp Pulse Resp BP Pulse Ox 98 F 86 20 132/69 20 L 11/10/17 10:00 11/10/17 10:00 11/10/17 10:00 11/10/17 10:00 11/10/17 10:00 - Medications Medications: Current Medications Amlodipine Besylate (Norvasc) 5 mg PO DAILY [facility] Last Admin: 11/10/17 09:07 Dose: 5 mg Aspirin (Ecotrin) 81 mg PO 0800 [facility] PRN Reason: Protocol Last Admin: 11/10/17 09:09 Dose: 81 mg Clopidogrel Bisulfate (Plavix) 75 mg PEG DAILY [facility] Last Admin: 11/10/17 09:07 Dose: 75 mg Famciclovir (Famvir) 500 mg PO Q12 [facility] PRN Reason: Protocol Last Admin: 11/10/17 09:08 Dose: 500 mg Ferrous Gluconate (Fergon) 324 mg PO DAILY [facility] Gabapentin (Neurontin) 300 mg PO BID [facility] PRN Reason: Protocol Last Admin: 11/10/17 09:08 Dose: 300 mg Home Med (Home Med) 0 unit PO BID [facility] Last Admin: 11/10/17 09:12 Dose: 1 unit Levothyroxine Sodium (Synthroid) 25 mcg PO 0600 [facility] Last Admin: 11/10/17 05:43 Dose: 25 mcg Lidocaine HCl (Xylocaine 2%) 0 ea TOP TID PRN PRN Reason: Pain, Mild (1-3) Last Admin: 11/09/17 21:03 Dose: 1 applic Linezolid (Zyvox) 600 mg PO BID [facility] PRN Reason: Protocol Last Admin: 11/10/17 09:14 Dose: 600 mg Metoprolol Tartrate (Lopressor) 25 mg PO 0800,1800 [facility] PRN Reason: Protocol Last Admin: 11/10/17 09:08 Dose: 25 mg Morphine Sulfate (Morphine) 2 mg IVP Q4H PRN; Protocol PRN Reason: Pain, severe (8-10) Last Admin: 11/10/17 09:26 Dose: 2 mg Mupirocin (Bactroban Ointment) 1 gm TOP BID [facility] PRN Reason: Protocol Last Admin: 11/10/17 09:10 Dose: 1 applic Nystatin (Mycostatin Cream) 0 ea TOP TID [facility] Last Admin: 11/10/17 09:13 Dose: 1 applic Ondansetron HCl (Zofran Inj) 4 mg IVP Q4H PRN; Protocol PRN Reason: Nausea/Vomiting Last Admin: 11/03/17 22:08 Dose: 4 mg Pantoprazole Sodium (Protonix Ec Tab) 40 mg PO 0600 [facility] Last Admin: 11/10/17 05:43 Dose: 40 mg Potassium Chloride (Potassium Chloride Oral Soln) 20 meq PO 0800,1800 [facility] PRN Reason: Protocol Last Admin: 11/10/17 09:07 Dose: 20 meq Silver Sulfadiazine (Silvadene 1% 25 Gm) 0 gm TP BID [facility] PRN Reason: Protocol Last Admin: 11/10/17 09:14 Dose: 25 gm Sodium Chloride ([place] Nasal [place]) 0 ml NS TID [facility] PRN Reason: Protocol Last Admin: 11/10/17 09:13 Dose: Not Given - Labs Labs: 11/10/17 06:30 11/10/17 06:30
--- NOTE | 2017-11-10 14:08 | PN ---
DATE: ENDOCRINOLOGY FOLLOWUP NOTE LOCATION: Room 319. SUBJECTIVE: This is an 87-year-old male with recent overt hypothyroidism, currently undergoing physical and occupational therapy for deconditioning and also ongoing IV antibiotic management for bacteremia as noted thereof. His latest chemistries have improved and the latest BUN is 26, sodium 131, potassium 3.9, chloride 95, CO2 of 28, glucose 110 and creatinine 0.8. We will continue the same levothyroxine given as a very low dose of 25 mcg once daily in the morning as ordered. We will titrate incrementally as indicated to optimize metabolic control. We will also obtain serial thyroid studies and titrate his dose regimen accordingly. We will follow. Michelle Richardson MD
--- NOTE | 2017-11-10 15:48 | PN ---
DATE: 11/10/2017 This is [facility] [place] [facility] on the TCU floor. For Dr. Smith. SUBJECTIVE: The patient is an 87-year-old male, seen sitting up in bed now, being counseled regarding swallowing with the patient reporting that his left shoulder and left anterior chest is significantly improved with significantly less pain after treatment was begun. He continues to take nutrition through his PEG feeding tube with the patient known to suffer from stage LALO supraglottic laryngeal carcinoma, status post Erbitux treatment with radiation in the recent past with superinfection, possibly viral, of his skin of the left anterior chest wall, lower neck. At present, he is participating with TCU protocols with nutrition via the PEG and now swallowing also being advanced to bite-sized diet, nectar thick with free water as per recommendations. We will also ask for calorie count for him. At present, he is in no acute distress with his oral medications cut back after discussion with Dr. Gallardo. PHYSICAL EXAMINATION: GENERAL: He appears somewhat cachectic, sunken temples. VITAL SIGNS: Temperature 97.6, pulse 95, respirations 20, blood pressure 132/76, pulse ox of 98%. HEENT: Tongue is moist. NECK: Supple with healing skin changes on the left side of his neck. HEART: Tachy rate, regular rhythm. LUNGS: Clear. ABDOMEN: Scaphoid, soft, nontender with mild cachexia noted, with a PEG tube noted also in the mid lower abdomen. EXTREMITIES: No edema with some muscle wasting noted. SKIN: Otherwise, warm and dry, clear except for his left anterior shoulder, chest, neck with healing of his infected area of skin. NEUROLOGIC: Awake, alert, and oriented x3 with equal slot floorman to strength noted. LABORATORY DATA: The patient's labs were done. White blood cell count of 11.7; hemoglobin 10.5, up from 8.1 yesterday after transfusion of 2 units of packed red blood cells via the outpatient clinic; hematocrit 31, platelets count of 226. His chem metabolic panel shows a sodium of 131, chloride of 95 with a BUN of 26, normal creatinine of 0.8 with an iron saturation of 15%. ASSESSMENT: For this patient is that of cellulitis, questionable viral, to the left anterior chest, neck with superinfection, methicillin-resistant Staphylococcus aureus; radiation dermatitis; acute renal failure, corrected; stage LALO supraglottic laryngeal carcinoma, status post Erbitux and treatment with radiation; electrolyte imbalance; hypertension; nutritional compromise with percutaneous endoscopic gastrostomy feedings; dysphagia; deconditioning; hypothyroidism; intractable pain of cancer; anemia of chronic disease, status post transfusion; neuropathic pain?; atherosclerotic cardiovascular disease. PLAN: For this patient, after conversation with Dr. Smith, is to continue with present medical regimen, he is status post transfusion of 2 units of packed red blood cells with good effect. We will also advance his diet to bite size, nectar thick with free water parameters as per dietary and swallowing evaluation recommendation. We will ask for calorie count. The patient is to continue with his TCU protocols with discharge home once he is stable, possibly for Sunday with maximal assist at home with home visiting nurses, homemaker, home physiotherapy. We will monitor clinically with labs. This is a complex patient with a comprehensive medically necessary and appropriate visit carried out at the bedside in excess of 30 minutes of [id number] time, with patient's son spoken with Dr. Smith and myself at length regarding the patient's progress with his present treatment. Also, the patient's niece, who is a nurse, will make arrangements for his home needs along with high school social studies teacher' input. The prognosis for this patient is guarded. We will monitor clinically and with labs. Gary Zapata MD
[2017-11-10] MEDS: Morphine 4 mg/ml ISec IVP PRN (18:19)
--- NOTE | 2017-11-10 20:15 | PN ---
DATE: 11/10/2017 SUBJECTIVE: Patient is in bed, in no acute distress. Patient seen early this morning around 03:19. He is chronically ill, debilitated, and weak. PHYSICAL EXAMINATION: GENERAL: He appears much older than stated age and he appears cachectic with a BMI of 16. VITAL SIGNS: Temperature of 98, blood pressure is 130/70, respiratory rate of 18, heart rate of 86. HEENT: Unremarkable. NECK: Supple. LUNGS: Decreased breath sounds. HEART: Normal S1, S2. ABDOMEN: Soft, nontender. LABORATORY EXAMINATION: Reveals a white count 11,700, hemoglobin of 10, platelets of 226. BUN of 26, creatinine of 0.8. ASSESSMENT AND PLAN: This is an 87-year-old male with superinfection of left-sided neck with bacteria, methicillin-resistant Staphylococcus aureus; status post radiation dermatitis with throat cancer and completed 10 days of Zyvox and Bactroban, Famvir, currently now off of antibiotics, afebrile. We will discontinue the Famvir and the Zyvox. Patient's neck has got , completely resolved at this point. His creatinine is 0.8 and glomerular filtration rate of greater than 60. No further antibiotics necessary. Dr. Castro's note from yesterday is reviewed. Dr. Melvin Lockett's note from yesterday and consultation is greatly appreciated. Cuauhtemoc Olivera MD
[2017-11-10] MEDS: Lidocaine 2% Jelly (30 ml) TOP PRN (21:18)
[2017-11-11] MEDS: Morphine 4 mg/ml ISec IVP PRN ×3 (00:58→21:39)
[2017-11-11] MEDS: Lidocaine 2% Jelly (30 ml) TOP PRN ×2 (01:03→18:16)
--- NOTE | 2017-11-11 03:16 | PN ---
DATE: 11/10/2017 SUBJECTIVE: The patient was seen and evaluated earlier today. Patient is tolerating the pureed diet. PHYSICAL EXAMINATION: VITAL SIGNS: Temperature is 98, pulse 89, blood pressure is 141/58. HEENT: Atraumatic, anicteric. NECK: Supple. HEART: S1, S2 heard. LUNGS: Bilateral air entry present. SKIN: Patient has left-sided neck and chest skin lesions; they are nearly improved. Patient has a feeding tube in place and G-tube in place; tolerating the feeding. This patient is advised to have pureed food for pleasure by mouth, small amount, and also continue the G-tube feeding. Thank you very much for allowing us to participate in the care of the patient. Pj Foreman MD
[2017-11-11] MEDS: Pantoprazole 40 mg EC Tab PO SCH (05:14)
[2017-11-11] MEDS: Levothyroxine 25 MCG TAB PO SCH (05:14)
[2017-11-11 06:23] LABS: BASO # 0.04 K/mm3 (0.0-2.0); BASO % 0.4 % (0.0-3.0); EOS # 0.5 (0.0-0.7); EOS % 4.4 % (1.5-5.0); GRAN # 7.04 (1.4-6.5); HEMOGLOBIN 11.1 g/dL (14.0-18.0); LYMPH # 1.4 (1.2-3.4); LYMPH % 13.5 % (22.0-35.0); MEAN CELL VOLUME 86.4 fl (80.0-105.0); MEAN CORPUSCULAR HEMOGLOBIN 29.1 pg (25.0-35.0); MEAN CORPUSCULAR HGB CONC 33.7 g/dl (31.0-37.0); MEAN PLATELET VOLUME 9.6 fl (7.0-11.0); MONO # 1.7 (0.1-0.6); MONO % 15.7 % (1.0-6.0); RBC 3.81 10^6/uL (3.5-6.1); RED CELL DISTRIBUTION WIDTH 14.8 % (11.5-14.5); WHITE BLOOD COUNT 10.7 10^3/ul (4.5-11.0)
[2017-11-11 06:29] LABS: ALB/GLOB RATIO 0.9 (1.1-1.8); ALBUMIN 2.9 g/dL (3.0-4.8); ALT/SGPT 36 U/L (7-56); AST/SGOT 27 U/L (17-59); BLOOD UREA NITROGEN 24 mg/dL (7-21); CALCIUM 8.8 mg/dL (8.4-10.5); GFR AFRICAN-AMERICAN > 60; GFR NON-AFRICAN AMERICAN > 60
[2017-11-11 06:44] LABS: T4 6.2 ug/dL (5.5-11.0)
[2017-11-11] MEDS ORDERED: Multivitamin With Minerals Tab PO SCH (08:00)
[2017-11-11] MEDS: Potassium Chloride 20 mEq/15 ml LIQ UD PO SCH ×2 (08:55→18:19)
[2017-11-11] MEDS: LUBIPROSTONE 24 MCG PO SCH ×2 (09:02→18:14)
[2017-11-11] MEDS: Silver Sulfadiazine 1% Cream (25 gm) TP SCH ×2 (09:03→18:19)
[2017-11-11] MEDS: Nystatin 100,000 Units/gm Cream(15 gm) TOP SCH ×3 (10:52→18:53)
--- NOTE | 2017-11-11 10:53 | CP.PCM.PN ---
Subjective - Date & Time of Evaluation Date of Evaluation: 11/11/17 Time of Evaluation: 10:52 - Subjective Subjective: Nephrology Consultation Note Covering for Dr Trammell Assessment: Stable Hyponatremia due to SIADH stable Anemia History of throat cancer Plan Serum sodium stable. No need for Samsca at this time. Will consider if sodium keeps dropping Patient on iron supplementation Glycemic control Pain management Further work up for as per primary team Thanks for allowing me to participate in care of your patient. Please call if any Qs. Dr Leo Gallardo Office: [phone] Subjective: Noted events overnight. Patients c/o left shoulder pain Denies chest pain, palpitation, shortness of breath, leg swelling. All other negative Physical Examination: General Appearance: uncomfortable, in no acute respiratory distress, co- operative . Ill-appearing, cachexic, debilitated Vitals reviewed and noted as below Head; Atraumatic, normocephalic ENT: no ulcers no thrush. Tongue is midline. Oropharynx: no rash or ulcers. EYES: Pupils are equal, round and reactive to light accommodation. Eye muscles and extraocular movement intact. Sclera is anicteric. Neck;Left Neck and Upper chest Skin scar noted Lungs: Normal respiratory rate/effort. Breath sounds bilateral equal and clear Heart: Normal rate. s1s2 normal. No rub or gallop. Extremities: no edema. No varicose veins Neurological: Patient is alert, awake and oriented to person, place and time. No focal deficit. Strength bilateral appropriate and equal Skin: Warm and dry. Normal turgor. No rash. Palpitation: Normal elasticity for age Abdomen: Abdomen is soft. Bowel sounds +. There is no abdominal tenderness, no guarding/rigidity no organomegaly. Has peg tube Psych: normal insight and normal affect/mood MSK: no joint tenderness or swelling. Digits and nails normal, no deformity : kidney or bladder not palpable Labs/imaging reviewed. Past medical history, past surgical history, family history, social history, allergy reviewed and noted as below Family hx: no hx of CKD. Rest non-contributory Objective - Vital Signs/Intake and Output Vital Signs (last 24 hours): Temp Pulse Resp BP Pulse Ox 98 F 85 20 118/54 L 20 L 11/10/17 10:00 11/11/17 09:01 11/10/17 10:00 11/11/17 09:01 11/10/17 10:00 - Medications Medications: Current Medications Amlodipine Besylate (Norvasc) 5 mg PO DAILY [facility] Last Admin: 11/11/17 09:01 Dose: 5 mg Aspirin (Ecotrin) 81 mg PO 0800 [facility] PRN Reason: Protocol Last Admin: 11/11/17 09:00 Dose: 81 mg Clopidogrel Bisulfate (Plavix) 75 mg PEG DAILY [facility] Last Admin: 11/11/17 09:01 Dose: 75 mg Ferrous Gluconate (Fergon) 324 mg PO DAILY [facility] Gabapentin (Neurontin) 300 mg PO BID [facility] PRN Reason: Protocol Last Admin: 11/11/17 09:00 Dose: 300 mg Home Med (Home Med) 0 unit PO BID [facility] Last Admin: 11/11/17 09:02 Dose: 1 unit Levothyroxine Sodium (Synthroid) 50 mcg PO ACB [facility] Lidocaine HCl (Xylocaine 2%) 0 ea TOP TID PRN PRN Reason: Pain, Mild (1-3) Last Admin: 11/11/17 01:03 Dose: 1 applic Metoprolol Tartrate (Lopressor) 25 mg PO 0800,1800 [facility] PRN Reason: Protocol Last Admin: 11/11/17 08:58 Dose: 25 mg Morphine Sulfate (Morphine) 2 mg IVP Q4H PRN; Protocol PRN Reason: Pain, severe (8-10) Last Admin: 11/11/17 00:58 Dose: 2 mg Mupirocin (Bactroban Ointment) 1 gm TOP BID [facility] PRN Reason: Protocol Last Admin: 11/10/17 18:02 Dose: 1 applic Nystatin (Mycostatin Cream) 0 ea TOP TID [facility] Last Admin: 11/10/17 18:02 Dose: 1 applic Ondansetron HCl (Zofran Inj) 4 mg IVP Q4H PRN; Protocol PRN Reason: Nausea/Vomiting Last Admin: 11/03/17 22:08 Dose: 4 mg Pantoprazole Sodium (Protonix Ec Tab) 40 mg PO 0600 [facility] Last Admin: 11/11/17 05:14 Dose: 40 mg Potassium Chloride (Potassium Chloride Oral Soln) 20 meq PO 0800,1800 [facility] PRN Reason: Protocol Last Admin: 11/11/17 08:55 Dose: 20 meq Silver Sulfadiazine (Silvadene 1% 25 Gm) 0 gm TP BID [facility] PRN Reason: Protocol Last Admin: 11/11/17 09:03 Dose: 25 gm Sodium Chloride ([place] Nasal [place]) 0 ml NS TID [facility] PRN Reason: Protocol Last Admin: 11/10/17 17:59 Dose: Not Given - Labs Labs: 11/11/17 06:00 11/11/17 06:00
--- NOTE | 2017-11-11 14:05 | PN ---
DATE: SUBJECTIVE: The patient is seen earlier this morning, in no acute distress, nontoxic. No fevers. OBJECTIVE VITAL SIGNS: On exam, temperature is 98, blood pressure is 140/50, respiratory rate of 18. HEENT: Examination is unremarkable. NECK: Supple. LUNGS: Have decreased breath sounds. HEART: Normal S1, S2. ABDOMEN: Soft, nontender. No organomegaly. No rebound or guarding. No masses. LABORATORY DATA: Examination reveals a white count of 10,000, hemoglobin of 11 and platelets of 269,000. Chemistries reveal a BUN of 24, creatinine of 0.8. Urinalysis is as noted. Microbiology is as noted. Review of orders reveal the patient to be off antibiotics. ASSESSMENT AND PLAN: This is an 87-year-old male who was seen earlier this morning in room 319 with a superinfection of left-sided bacteria, methicillin-resistant Staphylococcus aureus and status post radiation dermatitis, history of throat cancer, has completed 10 days of Zyvox, Bactroban and Famvir. The patient is currently off antibiotics, afebrile. The patient is at risk for developing nosocomial infections. We will follow with you. Cuauhtemoc Olivera MD
[2017-11-11] MEDS ORDERED: oxyCODONE 5 mg Immediate Release Tab PO PRN (14:52)
--- NOTE | 2017-11-11 19:00 | PN ---
DATE: 11/11/2017 This is [facility] visit on TCU. For Dr. Smith. SUBJECTIVE: The patient is an 87-year-old male sitting up in bed, reporting that his swallowing has improved, tolerating his present diet well with his pain coming in short spasms to his left shoulder, chest. With this, he is now on gabapentin as per Dr. Lockett with modest effect, also with his lidocaine ointment helping his discomfort. We will also adjust his narcotic analgesics, so that the morphine IV will be given for severe pain, oxycodone 5 will be given for moderate pain, and Tylenol for mild pain as per his degree of discomfort. With this, we have continued his PEG feedings with a calorie count pending. The patient's hemoglobin has significantly improved after transfusion as above. PHYSICAL EXAMINATION: VITAL SIGNS: Temperature 98.1, pulse 90, respirations 16, blood pressure 134/64, pulse ox 94%. HEENT: His temples are sunken with the patient appearing cachectic, otherwise tongue is moist and midline. NECK: Supple with healing skin change to left side of his neck. HEART: Regular rate. LUNGS: Clear. ABDOMEN: Scaphoid with PEG noted on the abdomen with his ribs shown through his thin skin with nutrition compromised noted. EXTREMITIES: No edema. SKIN: Warm and dry except for his left anterior chest with slow healing of the affected area. NEUROLOGIC: Awake, alert with equal groundskeeper supervisor to strength. LABORATORY DATA: The patient's labs were done. White blood cell count of 10.7, hemoglobin 11.1, hematocrit of 32.9, and platelet count of 269,000, with a chem metabolic panel showing a BUN of 24, normal creatinine of 0.8, chloride of 97, albumin of 2.9 with a total protein of 6. A TSH is noted at 19.3. His previous TSH was 8.23 and we will ask for Dr. Michelle Richardson to address his thyroid medication prior to discharge with consideration for advancing the dose as indicated. ASSESSMENT: For this patient is that of cellulitis, possibly viral, left anterior chest with superinfection, methicillin-resistant Staphylococcus; radiation dermatitis; stage LALO supraglottic laryngeal carcinoma, status post Erbitux with radiation; electrolyte imbalance; hypertension; nutritional compromise, failure to thrive with PEG; dysphagia; hypothyroidism; intractable pain of cancer; anemia of chronic disease; neuropathic pain; atherosclerotic cardiovascular disease; and deconditioning. PLAN: For this patient after conversation with Dr. Smith, is to continue with present medical regimen with adjustment of his TSH as per Dr. Michelle Richardson with the patient's arrangements for discharge home with maximal assist for tomorrow as possible with resumption of further treatment as per Dr. Smith's protocol. Otherwise, the patient continues to improve with nourishment, significant for his healing process to continue with calorie count pending. We will monitor clinically and with labs. This is a complex patient with a comprehensive medically necessary and appropriate visit carried out in excess of 30 minutes of [id number] time with the patient and also the patient's family members were spoken to recently by Dr. Smith and myself regarding his prognosis, plan, eventual discharge including Atul, his niece, who is a nurse here at [facility] to make arrangements for his care at home to prevent readmission as indicated. Gary Zapata MD
--- NOTE | 2017-11-11 23:52 | PN ---
DATE: 11/11/2017 SUBJECTIVE: This patient was seen and evaluated earlier today. Patient is tolerating the pureed diet. PHYSICAL EXAMINATION: VITAL SIGNS: Temperature is 97.9, pulse 85, blood pressure is 127/61. HEENT: Atraumatic, anicteric. NECK: Supple. The skin lesions on the left side of the neck and the chest have significant improvement. LUNGS: Bilateral air entry present. ABDOMEN: Soft. Gastrostomy tube in place. LABORATORY DATA: Hemoglobin 11.1, hematocrit 32.9, WBC 10.7, platelets 269. BUN 24, creatinine 0.8. IMPRESSION: Head and neck cancer, status post radiation and chemo. The patient had methicillin-resistant Staphylococcus aureus of the skin and also the patient had radiation dermatitis. The patient is off the antibiotics now. RECOMMENDATIONS: The patient is presently getting only 40 mL G-tube feeding, the patient was on 60 mL. We will discuss with regarding the increasing of the G-tube feeding. The patient has been placed on fluid restriction before. We will discuss with the Renal and also with Dr. Gary Zapata regarding the feeding tube and rate adjustments. Thank you very much for allowing us to participate in the care of the patient. Pj Foreman MD
[2017-11-12] MEDS: Pantoprazole 40 mg EC Tab PO SCH (05:06)
[2017-11-12] MEDS ORDERED: Levothyroxine 50 MCG TAB PO SCH ×2 (06:00→07:30)
[2017-11-12 07:10] LABS: BASO # 0.04 K/mm3 (0.0-2.0); BASO % 0.4 % (0.0-3.0); EOS # 0.7 (0.0-0.7); EOS % 7.9 % (1.5-5.0); GRAN # 5.85 (1.4-6.5); GRAN % 64.1 % (50.0-68.0); HEMOGLOBIN 10.5 g/dL (14.0-18.0); LYMPH # 1.2 (1.2-3.4); LYMPH % 13.2 % (22.0-35.0); MEAN CELL VOLUME 86.9 fl (80.0-105.0); MEAN CORPUSCULAR HEMOGLOBIN 28.6 pg (25.0-35.0); MEAN CORPUSCULAR HGB CONC 32.9 g/dl (31.0-37.0); MEAN PLATELET VOLUME 9.3 fl (7.0-11.0); MONO # 1.3 (0.1-0.6); MONO % 14.4 % (1.0-6.0); RBC 3.67 10^6/uL (3.5-6.1); RED CELL DISTRIBUTION WIDTH 14.9 % (11.5-14.5); WHITE BLOOD COUNT 9.1 10^3/ul (4.5-11.0)
[2017-11-12 07:19] LABS: ALB/GLOB RATIO 0.9 (1.1-1.8); ALBUMIN 2.8 g/dL (3.0-4.8); ALT/SGPT 30 U/L (7-56); AST/SGOT 33 U/L (17-59); BLOOD UREA NITROGEN 20 mg/dL (7-21); CALCIUM 8.7 mg/dL (8.4-10.5); GFR AFRICAN-AMERICAN > 60; GFR NON-AFRICAN AMERICAN > 60
[2017-11-12] MEDS: Potassium Chloride 20 mEq/15 ml LIQ UD PO SCH ×2 (08:06→17:07)
--- NOTE | 2017-11-12 08:06 | PN ---
DATE: ENDOCRINOLOGY FOLLOWUP NOTE LOCATION: Room 319, [facility]. SUBJECTIVE: This is an 87-year-old male with recent overt hypothyroidism, currently undergoing physical and occupational therapy for deconditioning and also ongoing IV antibiotic management for recent bacteremia as noted thereof. He remains clinically euthyroid and biochemically has evidence of moderate hypothyroidism and the repeat thyroid study showed a T4 of 6.2 with a TSH of 19.30. The repeat chemistry showed a BUN of 24, sodium 133, potassium 4.6, chloride 97, CO2 of 31, glucose 106, and creatinine 0.8. So, at this time, we will modify his levothyroxine to a higher dosing of 50 mcg once daily in the morning before breakfast as ordered. We will titrate incrementally as indicated to optimize metabolic control. We will obtain serial thyroid studies and adjust his dose regimen to optimize metabolic control. We will follow and advise accordingly. Michelle Richardson MD
--- NOTE | 2017-11-12 08:41 | CP.PCM.DIS ---
Provider - Provider Date of Admission: 11/02/17 14:42 Attending physician: Gary Zapata MD Consults: ENT: Dee GI: Kellen Cardio: Yessenia Surgery: Homer ID: Viraj Nephro: Valeri Endo: Cam Neuro: Harsha Lockett Time Spent in preparation of Discharge (in minutes): 35 Diagnosis - Discharge Diagnosis (1) Cellulitis Status: Resolved Priority: High (2) Hyponatremia Status: Acute Priority: High (3) Laryngeal cancer Status: Chronic Priority: High (4) Dyspnea on exertion Status: Resolved Priority: Medium Hospital Course - Lab Results Lab Results: Most Recent Lab Values WBC 9.1 10^3/ul (4.5-11.0) 11/12/17 06:45 RBC 3.67 10^6/uL (3.5-6.1) 11/12/17 06:45 Hgb 10.5 g/dL (14.0-18.0) L 11/12/17 06:45 Hct 31.9 % (42.0-52.0) L 11/12/17 06:45 MCV 86.9 fl (80.0-105.0) 11/12/17 06:45 MCH 28.6 pg (25.0-35.0) 11/12/17 06:45 MCHC 32.9 g/dl (31.0-37.0) 11/12/17 06:45 RDW 14.9 % (11.5-14.5) H 11/12/17 06:45 Plt Count 281 10^3/uL (120.0-450.0) 11/12/17 06:45 MPV 9.3 fl (7.0-11.0) 11/12/17 06:45 Gran % 64.1 % (50.0-68.0) 11/12/17 06:45 Lymph % (Auto) 13.2 % (22.0-35.0) L 11/12/17 06:45 [place] % (Auto) 14.4 % (1.0-6.0) H 11/12/17 06:45 Eos % (Auto) 7.9 % (1.5-5.0) H 11/12/17 06:45 Baso % (Auto) 0.4 % (0.0-3.0) 11/12/17 06:45 Gran # 5.85 (1.4-6.5) 11/12/17 06:45 Lymph # (Auto) 1.2 (1.2-3.4) 11/12/17 06:45 [place] # (Auto) 1.3 (0.1-0.6) H 11/12/17 06:45 Eos # (Auto) 0.7 (0.0-0.7) 11/12/17 06:45 Baso # (Auto) 0.04 K/mm3 (0.0-2.0) 11/12/17 06:45 Sodium 128 mmol/L (132-148) L 11/12/17 06:45 Potassium 4.4 mmol/L (3.6-5.0) 11/12/17 06:45 Chloride 93 mmol/L (98-107) L 11/12/17 06:45 Carbon Dioxide 29 mmol/L (21-33) 11/12/17 06:45 Anion Gap 10 (10-20) 11/12/17 06:45 BUN 20 mg/dL (7-21) 11/12/17 06:45 Creatinine 0.7 mg/dl (0.8-1.5) L 11/12/17 06:45 Est GFR ( Amer) > 60 11/12/17 06:45 Est GFR (Non-Af Amer) > 60 11/12/17 06:45 Random Glucose 109 mg/dL (70-110) 11/12/17 06:45 Calcium 8.7 mg/dL (8.4-10.5) 11/12/17 06:45 Phosphorus 3.8 mg/dL (2.5-4.5) 11/12/17 06:45 Magnesium 2.0 mg/dL (1.7-2.2) 11/12/17 06:45 Iron 22 ug/dL (45-180) L 11/09/17 05:41 TIBC 154 ug/dL (261-462) L 11/09/17 05:41 % Saturation 15 % (20-55) L 11/09/17 05:41 Total Bilirubin 0.9 mg/dL (0.2-1.3) 11/12/17 06:45 AST 33 U/L (17-59) 11/12/17 06:45 ALT 30 U/L (7-56) 11/12/17 06:45 Alkaline Phosphatase 66 U/L (38-126) 11/12/17 06:45 Total Protein 5.8 g/dL (5.8-8.3) 11/12/17 06:45 Albumin 2.8 g/dL (3.0-4.8) L 11/12/17 06:45 Globulin 3.0 gm/dL 11/12/17 06:45 Albumin/Globulin Ratio 0.9 (1.1-1.8) L 11/12/17 06:45 Free T4 1.19 ng/dL (0.78-2.19) 11/05/17 06:35 Thyroxine (T4) 6.2 ug/dL (5.5-11.0) 11/11/17 06:00 TSH 3rd Generation 19.30 mIU/mL (0.46-4.68) H 11/11/17 06:00 Thyroperoxidase Ab <1 IU/mL (<9) 11/05/17 06:35 - Hospital Course Hospital Course: Heme-onc Discharge Summary, Vadim Brooks DO, PGY-2 IM This is an 87 yo M with PMH of 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 While here, he was seen by ID, ENT, Nephro, Surgery, GI, Cardio, Neuro, and Endocrine. As per ID, his infection is resolved, and he has since been discontinued on antibiotics and famvir. 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 As per ENT, scoping was negative for epiglotis tumor, no acute interventions needed , but should follow up as an outpatient. As per Neuro, neuropathic pain to be managed with Gabapentin BID, up to 300mg BID. Today, patient reports general resolution of symptoms, denies any further pain, although he does complain of pruritis where the cellulitis was previously present. The rash and cracked/bleeding skin is completely resolved, although there is notable dry and peeling skin at the previously affected area. Tolerating diet during exam without acute issue. Denies shortness of breath, chest pain, nausea, sharp pains, emesis, diarrhea. Reports walking well with PT and feeling stronger in general; reports feeling ready to go home. He was instructed to resume all home medications as previously prescribed, and to take the newly prescribed synthroid, Caladryl lotion, Oxycodone (for pain management) , and tolvaptan as prescribed (scripts electronically transmitted to in-house outpatient pharmacy for availability on discharge). He was also instructed to follow up weekly with either his PMD or Dr. Smith for routine monitoring of serum sodium while on tolvaptam. He expressed understanding and agreement with these instructions. This was additionally discussed with pt's son Jw over telephone, who also expressed understanding of these instructions. All questions were answered to patient's satisfaction, and then he was discharged to home. Patient reviewed and discussed at length with attending, Dr. Smith. Discharge Exam - Additional Findings Additional findings: - Constitutional Appears: Non-toxic, No Acute Distress, Cachectic (very cachetic, can see sternotomy wires from CABG pushing up through skin at sterum), Chronically Ill - Head Exam Head Exam: ATRAUMATIC, NORMAL INSPECTION, NORMOCEPHALIC - Eye Exam Eye Exam: EOMI, Normal appearance. absent: Conjunctival injection, Scleral icterus Pupil Exam: absent: Irregular, Unequal - ENT Exam ENT Exam: Mucous Membranes Dry Additional comments: Speech at baseline No petechiae or active bleeding sources identified No exudates or candidiasis appreciated - Neck Exam Neck exam: Positive for: Full Rom - Respiratory Exam Respiratory Exam: NORMAL BREATHING PATTERN. absent: Accessory Muscle Use, Rales , Rhonchi, Wheezes - Cardiovascular Exam Cardiovascular Exam: REGULAR RHYTHM, RRR, +S1, +S2. absent: Bradycardia, Tachycardia, Irregular Rhythm, +S4 - GI/Abdominal Exam GI & Abdominal Exam: Normal Bowel Sounds, Soft. absent: Diminished Bowel Sounds , Distended, Firm, Hyperactive Bowel Sounds, Hypoactive Bowel Sounds, Rigid, Tenderness - Extremities Exam Extremities exam: Positive for: pedal pulses present. Negative for: calf tenderness, pedal edema, tenderness Additional comments: mildly waxy-like skin at bilateral LE from extending from feet to ankles distal LE warm to palpation - Neurological Exam Neurological exam: Alert, Oriented x3 Additional comments: following all commands appropriately, moving all extremities spontaneously motor appears grossly intact and equal bilaterally - Psychiatric Exam Psychiatric exam: Normal Affect, Normal Mood - Skin Skin Exam: Dry, Intact, Normal Color, Warm (Except as listed below) Additional comments: Sternotomy wires visualized pushing up skin at sternum, right chest port easily visualized through skin, but neither with breakdown or breakthrough of skin Left sided rash/cellulitis resolved, notable excessive dry and peeling skin at area of previous cellulitis, pruritis as per pt but not painful to palpation Discharge Plan - Discharge Medications Prescriptions: Calamine/Pramoxine [Caladryl] 180 ml TP TID PRN #1 bottle PRN Reason: Itching / Pruritus Levothyroxine [Synthroid] 25 mcg PO DAILY #30 tab oxyCODONE [oxyCODONE Immediate Release Tab] 5 mg PO Q6H PRN #60 tab PRN Reason: Pain, Moderate (4-7) Tolvaptan [Samsca] 15 mg PO MWF #3 tab Tolvaptan [Samsca] 15 mg PO MWF #12 tab - Follow Up Plan Condition: GOOD Disposition: HOME/ ROUTINE Instructions: Laryngeal Cancer, Chronic Pain (DC), Shortness of Breath (Dyspnea ) (DC) Additional Instructions: -Please resume all home medications as prescribed -Please take your new medications (Synthroid, Caladryl Lotion, tolvaptan, and Oxycodone) as prescribed. All medication prescriptions were sent to the in- house outpatient pharmacy to be available to you on discharge. -Please follow up with your PMD within 1 week of discharge. -Please follow up with either your PMD or Dr Smith weekly while on tolvaptan for routine monitoring of serum sodium. -Please follow up with an Straightener Hand, your ENT doctor, and your Senior Ux Developer-Oncologist within 1 month of discharge. -Please return to the hospital if you experience any new or concerning symptoms. Referrals: Elijah Keith MD [Family Provider] - Mustapha Smith MD [Staff Provider] -
[2017-11-12] MEDS: LUBIPROSTONE 24 MCG PO SCH ×2 (10:56→17:05)
[2017-11-12] MEDS: Nystatin 100,000 Units/gm Cream(15 gm) TOP SCH ×3 (10:58→17:06)
[2017-11-12] MEDS: Silver Sulfadiazine 1% Cream (25 gm) TP SCH ×2 (11:00→17:07)
[2017-11-12] MEDS: Lidocaine 2% Jelly (30 ml) TOP PRN (11:00)
[2017-11-12] MEDS ORDERED: Calamine-Zinc Oxide Lotion (120 ml) TOP PRN (11:03)
[2017-11-12] MEDS: Morphine 4 mg/ml ISec IVP PRN ×2 (11:08→18:10)
--- NOTE | 2017-11-12 15:15 | CP.PCM.PN ---
Subjective - Date & Time of Evaluation Date of Evaluation: 11/12/17 Time of Evaluation: 11:10 - Subjective Subjective: Comfortable, feeling better, no fevers, no diarrhea. Objective - Vital Signs/Intake and Output Vital Signs (last 24 hours): Temp Pulse Resp BP Pulse Ox 97.9 F 91 H 16 121/67 94 L 11/11/17 16:00 11/12/17 08:05 11/11/17 16:00 11/12/17 08:05 11/11/17 16:00 - Medications Medications: Current Medications Acetaminophen (Tylenol 325mg Tab) 650 mg PO Q4H PRN PRN Reason: Pain, Mild (1-3) Amlodipine Besylate (Norvasc) 5 mg PO DAILY [facility] Last Admin: 11/11/17 09:01 Dose: 5 mg Aspirin (Ecotrin) 81 mg PO 0800 [facility] PRN Reason: Protocol Last Admin: 11/12/17 08:05 Dose: 81 mg Clopidogrel Bisulfate (Plavix) 75 mg PEG DAILY [facility] Last Admin: 11/11/17 09:01 Dose: 75 mg Ferrous Gluconate (Fergon) 324 mg PO DAILY [facility] Last Admin: 11/11/17 10:50 Dose: 324 mg Gabapentin (Neurontin) 300 mg PO BID [facility] PRN Reason: Protocol Last Admin: 11/11/17 18:17 Dose: 300 mg Home Med (Home Med) 0 unit PO BID [facility] Last Admin: 11/11/17 18:14 Dose: 1 unit Levothyroxine Sodium (Synthroid) 50 mcg PO 0600 [facility] Last Admin: 11/12/17 05:06 Dose: 50 mcg Lidocaine HCl (Xylocaine 2%) 0 ea TOP TID PRN PRN Reason: Pain, Mild (1-3) Last Admin: 11/11/17 18:16 Dose: 1 applic Metoprolol Tartrate (Lopressor) 25 mg PO 0800,1800 [facility] PRN Reason: Protocol Last Admin: 11/12/17 08:05 Dose: 25 mg Morphine Sulfate (Morphine) 2 mg IVP Q4H PRN; Protocol PRN Reason: Pain, severe (8-10) Last Admin: 11/11/17 21:39 Dose: 2 mg Mupirocin (Bactroban Ointment) 1 gm TOP BID [facility] PRN Reason: Protocol Last Admin: 03/25/18 18:14 Dose: 1 applic Nystatin (Mycostatin Cream) 0 ea TOP TID [facility] Last Admin: 11/11/17 18:53 Dose: 1 applic Ondansetron HCl (Zofran Inj) 4 mg IVP Q4H PRN; Protocol PRN Reason: Nausea/Vomiting Last Admin: 11/03/17 22:08 Dose: 4 mg Oxycodone HCl (Oxycodone Immediate Release Tab) 5 mg PO Q6H PRN PRN Reason: Pain, moderate (4-7) Pantoprazole Sodium (Protonix Ec Tab) 40 mg PO 0600 [facility] Last Admin: 11/12/17 05:06 Dose: 40 mg Potassium Chloride (Potassium Chloride Oral Soln) 20 meq PO 0800,1800 SIA PRN Reason: Protocol Last Admin: 11/12/17 08:06 Dose: 20 meq Silver Sulfadiazine (Silvadene 1% 25 Gm) 0 gm TP BID [facility] PRN Reason: Protocol Last Admin: 11/11/17 18:19 Dose: 25 gm Sodium Chloride ([place] Nasal [place]) 0 ml NS TID SIA PRN Reason: Protocol Last Admin: 11/11/17 18:18 Dose: 1 applic - Labs Labs: 11/12/17 06:45 11/12/17 06:45 - Constitutional Appears: Cachectic, Chronically Ill - Head Exam Head Exam: NORMAL INSPECTION - ENT Exam ENT Exam: Mucous Membranes Moist - Neck Exam Neck Exam: absent: Meningismus - Respiratory Exam Respiratory Exam: Decreased Breath Sounds Additional comments: improved skin lesions on the left neck, shoulder and chest area - Cardiovascular Exam Cardiovascular Exam: +S1, +S2 - GI/Abdominal Exam GI & Abdominal Exam: absent: Tenderness Assessment and Plan - Assessment and Plan (Free Text) Plan: Assessment superinfection of left side of neck with bacteria (MRSA), R/O HSV, clinically improved and S/P treatment histroy of radiation dermatitis on left side of neck with superimposed cellulitis, growing MRSA acute renal failure, R/O Vancomycin-induced nephrotoxicity, slowly improving throat cancer S/P port placement on chemotherapy and radiation therapy S/P PEG placement Plan completed course of Zyvox, Bactroban ointment and famvir; wound cx showing MRSA ; continue to monitor off antibiotics and antivirals overall prognosis is poor
[2017-11-12 16:21] VITALS: PULSE 78; RESP 20; TEMP 98.3; O2SAT 95
[2017-11-12 17:09] VITALS: BP 141/60
--- NOTE | 2017-11-12 19:32 | PN ---
DATE: 11/12/2017 SUBJECTIVE: The patient is seen sitting in chair. He is awake, he is alert, he is comfortable. PHYSICAL EXAMINATION: GENERAL: Elderly male sitting in bed. VITAL SIGNS: Blood pressure 141/58, heart rate 78, respiratory rate 20, temperature 98.3. HEENT: Normocephalic, atraumatic, positive pallor. NECK: Supple. No JVD. LUNGS: Bilateral rhonchi. Bilateral equal expansion. EXTREMITIES: No lower extremity edema. INTAKE AND OUTPUT: Not charted. LABORATORY DATA: WBC 9, hemoglobin 10.5, hematocrit 32, platelets 281. Sodium 128, potassium 4.4, chloride 93, CO2 29, BUN 20, creatinine 0.7, glucose 109. Uric acid not checked. CURRENT MEDICATIONS: Bactroban, calamine, Ecotrin, Fergon, Lopressor 25 b.i.d., morphine, nystatin, gabapentin, amlodipine, oxycodone, Plavix, potassium 20 mEq, Protonix, Silvadene, Synthroid, Tylenol, Zofran, Samsca given for 3 days, 11/04/2017 through 11/06/2017. ASSESSMENT AND PLAN: 1. 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 2. History of throat cancer. 3. Anemia. 4. History of coronary artery disease. PLAN: 1. Agree with tolvaptan 15 mg daily. 2. Continue to restrict p.o. fluids. 3. We will need to monitor sodium as outpatient. Marissa Cohen MD
--- NOTE | 2017-11-12 22:23 | PN ---
DATE: ENDOCRINOLOGY FOLLOWUP NOTE LOCATION: In room 319, [facility]. SUBJECTIVE: This is an 87-year-old male with early hypothyroidism and currently tolerating a low-dose levothyroxine replacement therapy as given. His latest chemistry showed a BUN of 20, sodium 128, potassium 4.4, chloride 93, CO2 of 29, glucose of 109 and creatinine 0.7. The latest thyroid study showed a T4 of 6.2 with a TSH of 19.30. So at this time, we will modify his levothyroxine dosing to a higher dose of 50 mcg once daily in the morning to start today. We will titrate incrementally as indicated to optimize metabolic control. We will obtain serial chemistries and supplement accordingly as needed. We will follow with you. Michelle Richardson MD
--- NOTE | 2017-11-13 03:20 | PN ---
DATE: 11/12/2017 SUBJECTIVE: This patient was seen and evaluated earlier today. Patient is tolerating the pureed diet and also G-tube feeding. Plan to be discharge today. PHYSICAL EXAMINATION: VITAL SIGNS: Temperature is 98.3, pulse 78, blood pressure is 141/58, respirations 20, O2 saturation is 95%. HEENT: Atraumatic, anicteric. NECK: Supple. HEART: S1, S2 heard. LUNGS: Bilateral air entry present. ABDOMEN: Soft. PEG tube in place. SKIN: Excoriations and lesions on the left side of the neck and chest appear to be significantly improved. LABORATORY DATA: Hemoglobin 10.5, hematocrit 31.9, WBC is 9.1, platelets 281. Creatinine 0.7. IMPRESSION AND PLAN: This is an 87-year-old patient with head and neck cancer, status post radiation therapy and chemotherapy, admitted with methicillin-resistant Staphylococcus aureus superinfection, left side of the neck skin area. Clinically rule out HSV, improved with treatment, radiation cellulitis. Patient has dysphagia and now tolerating pureed diet for only. Getting G-tube feeding. Patient has plan to continue the bolus feeding for gastric mobility with free water flush. Discussed with patient at length regarding G-tube feeding. Pj Foreman MD
== END 2017-11-12 18:49 | disposition home health service (06) | DRG 603 ==
LOC: TRCU 14:42
PROVIDERS: ADMIT Family Medicine; ATTEND Family Medicine
PROC: 3E03328 Introduction of Oxazolidinones into Peripheral Vein, Percutaneous Approach (ICD-10-PCS; 2017-11-02)
PROC: 3E0G76Z Introduction of Nutritional Substance into Upper GI, Via Natural or Artificial Opening (ICD-10-PCS; 2017-11-02)
PROC: F07Z9ZZ Gait Training/Functional Ambulation Treatment (ICD-10-PCS; principal; 2017-11-03)
PROC: F08Z4ZZ Home Management Treatment (ICD-10-PCS; 2017-11-03)
DX: L03.221 Cellulitis of neck (principal); R64 Cachexia; Z93.1 Gastrostomy status; L03.114 Cellulitis of left upper limb; B95.62 Methicillin resistant Staphylococcus aureus infection as the cause of diseases classified elsewhere; C32.9 Malignant neoplasm of larynx, unspecified; E22.2 Syndrome of inappropriate secretion of antidiuretic hormone; D63.0 Anemia in neoplastic disease; E03.9 Hypothyroidism, unspecified; Z68.1 Body mass index [BMI] 19.9 or less, adult; L59.8 Other specified disorders of the skin and subcutaneous tissue related to radiation; R62.7 Adult failure to thrive; J44.9 Chronic obstructive pulmonary disease, unspecified; E78.5 Hyperlipidemia, unspecified; Z79.2 Long term (current) use of antibiotics; I12.9 Hypertensive chronic kidney disease with stage 1 through stage 4 chronic kidney disease, or unspecified chronic kidney disease; N18.9 Chronic kidney disease, unspecified; I25.10 Atherosclerotic heart disease of native coronary artery without angina pectoris; K59.00 Constipation, unspecified; H91.90 Unspecified hearing loss, unspecified ear; Y84.2 Radiological procedure and radiotherapy as the cause of abnormal reaction of the patient, or of later complication, without mention of misadventure at the time of the procedure; Z95.1 Presence of aortocoronary bypass graft; Z87.891 Personal history of nicotine dependence

== ENCOUNTER 2017-11-21 16:54 | Inpatient (IN) | payer MEDICARE ==
[2017-11-21 16:55] VITALS: BMI 16.5
[2017-11-21] MEDS ORDERED: Sodium Chloride 0.9% 500 ML IV STA ×2 (17:35→18:14)
--- NOTE | 2017-11-21 17:40 | ED PDOC ---
Arrival/HPI - General Chief Complaint: Shortness Of Breath Time Seen by Provider: 11/21/17 17:15 Historian: Patient - History of Present Illness Narrative History of Present Illness (Text): 11/21/17 17:40 A 87 year old male, whose past medical history includes laryngeal cancer, hypertension, CAD s/p CABG, radiation dermititis, presents to the emergency department complaining of shortness of breath for 6 months, progressively worsening over the past week. Patient notes associated loss of appetite and PO intake. Patient denies any fever, chills, nausea, vomiting, abdominal pain, back pain, chest pain, cough, nasal congestion or any other complaints. PMD: Dr. Smith and Dr. Zapata Time/Duration: Other (6 months) Symptom Course: Worsening (past week) Context: Home Past Medical History - Provider Review Nursing Documentation Reviewed: Yes - Infectious Disease Hx of Infectious Diseases: None - Cardiac Hx Cardiac Disorders: Yes - Pulmonary Hx Chronic Obstructive Pulmonary Disease (COPD): Yes - Neurological Hx Neurological Disorder: No - HEENT Hx HEENT Disorder: Yes Other/Comment: THROAT CA - Renal Hx Renal Disorder: No - Endocrine/Metabolic Hx Endocrine Disorders: No - Hematological/Oncological Hx Cancer: Yes (throat) - Integumentary Hx Dermatological Disorder: No - Musculoskeletal/Rheumatological Hx Falls: Yes - Gastrointestinal Hx Gastrointestinal Disorders: Yes (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) - Genitourinary/Gynecological Hx Genitourinary Disorders: No Hx Reproductive Disorders: No - Psychiatric Hx Psychophysiologic Disorder: No Hx Substance Use: No - Surgical History Hx Angioplasty: Yes Hx Joint Replacement: Yes (left shldr) Hx Musculoskeletal Surgery: Yes (R/L Foot, R-ankle) Other/Comment: G TUBE, PORT R UPPER CHEST. Larynectomy. Bronoscopy. Right Shldr rotator cuff repair. Deviated septum repair - Anesthesia Hx Anesthesia: Yes - Suicidal Assessment Feels Threatened In Home Enviroment: No Family/Social History - Physician Review Nursing Documentation Reviewed: Yes Family/Social History: No Known Family HX Smoking Status: Former Smoker Hx Alcohol Use: Yes Hx Substance Use: No Allergies/Home Meds Allergies/Adverse Reactions: Allergies No Known Allergies Allergy (Verified 11/21/17 17:12) Home Medications: Home Meds Medication Instructions Recorded Confirmed Aspirin [Aspirin Chewable] 1 tab PO DAILY 11/21/17 11/21/17 Clopidogrel [Plavix] 1 tab PO DAILY 11/21/17 11/21/17 Metoprolol 50 mg PO DAILY 11/21/17 11/21/17 Pantoprazole [Protonix] 40 mg PO DAILY 11/21/17 11/21/17 Pravastatin Sodium [Pravachol] 20 mg PO DAILY 11/21/17 11/21/17 Ultra Coq10 100 mg PO DAILY 11/21/17 11/21/17 Review of Systems - Physician Review All systems were reviewed & negative as marked: Yes - Review of Systems Constitutional: absent: Fevers, Night Sweats ENT: absent: Sinus Congestion Respiratory: SOB. absent: Cough Cardiovascular: absent: Chest Pain Gastrointestinal: Appetite Changes. absent: Abdominal Pain, Nausea, Vomiting Musculoskeletal: absent: Back Pain Physical Exam Vital Signs Reviewed: Yes Vital Signs Temp Pulse Resp BP Pulse Ox 11/21/17 16:55 102.1 F H 123 H 28 H 131/59 L 100 Temperature: Febrile Blood Pressure: Hypotensive Pulse: Tachycardic Respiratory Rate: Tachypneic Appearance: Positive for: Well-Appearing, Non-Toxic, Comfortable Pain Distress: None Mental Status: Positive for: Alert and Oriented X 3 - Systems Exam Head: Present: Atraumatic, Normocephalic Pupils: Present: PERRL Extroacular Muscles: Present: EOMI Conjunctiva: Present: Normal Mouth: Present: Dry Neck: Present: Normal Range of Motion Respiratory/Chest: Present: Respiratory Distress, Tachypneic. No: Accessory Muscle Use Cardiovascular: Present: Regular Rate and Rhythm, Normal S1, S2. No: Murmurs Abdomen: No: Tenderness, Distention, Peritoneal Signs Back: Present: Normal Inspection Upper Extremity: Present: Normal Inspection, NORMAL PULSES. No: Cyanosis, Edema Lower Extremity: Present: Edema (+1 pitting edema), NORMAL PULSES. No: CALF TENDERNESS Neurological: Present: GCS=15, CN II-XII Intact, Speech Normal Skin: Present: Warm, Dry, Normal Color. No: Rashes Psychiatric: Present: Alert, Oriented x 3, Normal Insight, Normal Concentration Medical Decision Making ED Course and Treatment: 11/21/17 17:40 Impression: A 87 year old male with worsening shortness of breath and loss of appetite Differential Diagnosis included but are not limited to: PNA/Sepsis vs. CHF exacerbation vs. Dehydration Plan: -- Chest xray -- EKG -- Labs -- Blood and Urine culture -- Urinalysis -- Rapid flu -- Tylenol and Cefepime -- Reassess and disposition Progress Notes: EKG shows sinus tachycardia at 112 BPM with LVH. Interpreted by me. 11/21/17 17:[address] Moyer who agrees in light of the radiation history he would benefit from Solumedrol and duoneb treatments. CXR showed RLL infiltrate. Patient already covered with Cefepime and Vancomycin IV. Report Date : 11/21/2017 18:24:40 Procedure: Chest xray Dictator : Tiera Pond MD IMPRESSION: Suspect right lower lobe pneumonia. Follow-up is advised. Background of COPD. Fibrotic changes in the right upper lobe. 11/21/17 19:02 Patient improved. No longer tachypneic. Right lower lung with rhonchi. No wheezing. Hr 120's. BP stable. Received 500 ml NS. Patient received duonebs so HR increased a little. Denies CP. Mild SOB. Discussed case with Dr. Gary Zapata who will admit to his service on Telemetry. - Critical Care Critical Care Minutes: 45 minutes - Lab Interpretations Lab Results: 11/21/17 17:28 11/21/17 17:28 Lab Results 11/21/17 17:50: Influenza Typ A,B (EIA) Negative for flu a/b 11/21/17 17:28: TSH 3rd Generation 5.29 H 11/21/17 17:28: Sodium 134, Chloride 92 L, Potassium 3.2 L, Carbon Dioxide 32, Anion Gap 13, BUN 30 H, Creatinine 0.8, Est GFR ( Amer) > 60, Est GFR ( Non-Af Amer) > 60, Random Glucose 137 H, Calcium 9.4, Phosphorus 2.3 L, Magnesium 1.9, Total Bilirubin 1.6 H, AST 84 H D, ALT 52, Alkaline Phosphatase 102, Troponin I < 0.01, NT-Pro-B Natriuret Pep 853 H, Total Protein 7.1, Albumin 3.4, Globulin 3.7, Albumin/Globulin Ratio 0.9 L 11/21/17 17:28: pO2 24 L, VBG pH 7.41, VBG pCO2 47.0, VBG HCO3 29.8 H, VBG Total CO2 31.2 H, VBG O2 Sat (Calc) 51.3, VBG Base Excess 4.3 H, VBG Potassium 3.2 L, Sodium 133.0, Chloride 95.0 L, Glucose 147 H, Lactate 2.8 H, FiO2 21.0, Venous Blood Potassium 3.2 L 11/21/17 17:28: PT 13.6 H, INR 1.19 H, APTT 29.9 11/21/17 17:28: WBC 18.5 H D, RBC 3.89, Hgb 11.6 L, Hct 34.4 L, MCV 88.4, MCH 29.8, MCHC 33.7, RDW 15.3 H, Plt Count 375, MPV 9.7, Gran % 89.1 H, Lymph % ( Auto) 6.5 L, Blaine % (Auto) 4.2, Eos % (Auto) 0.1 L, Baso % (Auto) 0.1, Gran # 16.47 H, Lymph # (Auto) 1.2, Blaine # (Auto) 0.8 H, Eos # (Auto) 0.0, Baso # (Auto ) 0.01 I have reviewed the lab results: Yes - RAD Interpretation Radiology Orders: 11/21/17 17:26 CHEST PORTABLE [RAD] Stat - Medication Orders Current Medication Orders: Vancomycin HCl (Vancomycin 1gm) 1 gm in 250 mls @ 167 mls/hr IVPB STAT STA PRN Reason: Protocol Stop: 11/21/17 19:28 Discontinued Medications Acetaminophen (Tylenol 650mg/20.3ml Solution Ud) 960 mg PO STAT STA Stop: 11/21/17 18:10 Last Admin: 11/21/17 18:23 Dose: 960 mg Albuterol/Ipratropium (Duoneb 3 Mg/0.5 Mg (3 Ml) Ud) 3 ml IH Q15M SIA Stop: 11/21/17 18:31 Last Admin: 11/21/17 18:54 Dose: 3 ml Cefepime HCl (Maxipime 2gm) 2 gm in 100 mls @ 100 mls/hr IVPB STAT STA PRN Reason: Protocol Stop: 11/21/17 18:42 Last Admin: 11/21/17 18:06 Dose: 100 mls/hr eMAR Start Stop Document 11/21/17 18:06 LA (Rec: 11/21/17 18:06 LA [id number]) Intravenous Solution Start Date 11/21/17 Start Time 18:06 End Date 11/21/17 End time 19:06 Total Infusion Time 60 Sodium Chloride (Sodium Chloride 0.9%) 500 mls @ 999 mls/hr IV .Q31M STA Stop: 11/21/17 18:44 Last Admin: 11/21/17 18:31 Dose: 999 mls/hr eMAR Start Stop Document 11/21/17 18:31 LA (Rec: 11/21/17 18:32 LA [id number]) Intravenous Solution Start Date 11/21/17 Start Time 18:31 End Date 11/21/17 End time 19:03 Total Infusion Time 32 Methylprednisolone (Solu-Medrol) 125 mg IVP STAT STA Stop: 11/21/17 17:57 Last Admin: 11/21/17 18:05 Dose: 125 mg IVP Administration Document 11/21/17 18:05 LA (Rec: 11/21/17 18:05 LA [id number]) Charges for Administration # of IVP Administrations 1 Potassium Chloride (Potassium Chloride Oral Soln) 40 meq PO STAT STA Stop: 11/21/17 18:25 Last Admin: 11/21/17 18:32 Dose: 40 meq - Scribe Statement The provider has reviewed the documentation as recorded by the Colletteibe Marnie Stearns Provider Scribe Attestation: All medical record entries made by the Scribe were at my direction and personally dictated by me. I have reviewed the chart and agree that the record accurately reflects my personal performance of the history, physical exam, medical decision making, and the department course for this patient. I have also personally directed, reviewed, and agree with the discharge instructions and disposition. Disposition/Present on Arrival - Present on Arrival Any Indicators Present on Arrival: No History of DVT/PE: No History of Uncontrolled Diabetes: No Urinary Catheter: No History of Decub. Ulcer: No History Surgical Site Infection Following: None - Disposition Have Diagnosis and Disposition been Completed?: Yes Diagnosis: Pneumonia, Dehydration, COPD (chronic obstructive pulmonary disease) Disposition: HOSPITALIZED Disposition Time: 18:40 Patient Plan: Admission Condition: GUARDED Referrals: Sagar CARMONA,José Antonio Villa MD [Primary Care Provider] - Follow up with primary Forms: [employer] ([place]ish)
[2017-11-21] MEDS ORDERED: Cefepime IV 2 gm in NS 2 GM/100 ML BAG IVPB STA (17:43)
[2017-11-21] MEDS ORDERED: Acetaminophen 160 mg/5 ml UD PO STA (17:48)
[2017-11-21 17:51] LABS: BASO # 0.01 K/mm3 (0.0-2.0); BASO % 0.1 % (0.0-3.0); EOS % 0.1 % (1.5-5.0); GRAN # 16.47 (1.4-6.5); GRAN % 89.1 % (50.0-68.0); HEMOGLOBIN 11.6 g/dL (14.0-18.0); LYMPH # 1.2 (1.2-3.4); LYMPH % 6.5 % (22.0-35.0); MEAN CELL VOLUME 88.4 fl (80.0-105.0); MEAN CORPUSCULAR HEMOGLOBIN 29.8 pg (25.0-35.0); MEAN CORPUSCULAR HGB CONC 33.7 g/dl (31.0-37.0); MEAN PLATELET VOLUME 9.7 fl (7.0-11.0); MONO # 0.8 (0.1-0.6); MONO % 4.2 % (1.0-6.0); RBC 3.89 10^6/uL (3.5-6.1); RED CELL DISTRIBUTION WIDTH 15.3 % (11.5-14.5); WHITE BLOOD COUNT 18.5 10^3/ul (4.5-11.0)
[2017-11-21 17:56] LABS: INR 1.19 (0.93-1.08); PARTIAL THROMBOPLASTIN TIME 29.9 Seconds (25.1-36.5); PROTHROMBIN TIME 13.6 SECONDS (9.4-12.5)
[2017-11-21 17:59] LABS: VENOUS BLOOD GAS BASE EXCESS 4.3 mmol/L (0.0-2.0); VENOUS BLOOD GAS PO2 24 mm/Hg (30-55); VENOUS BLOOD PH 7.41 (7.32-7.43)
[2017-11-21] MEDS ORDERED: Vancomycin 1gm in NS 250ml 1 GM/250 ML BAG IVPB STA (17:59)
[2017-11-21] MEDS: Albuterol-Ipratrop 3 mg / 0.5 (3 ml) UD IH SCH ×3 (18:05→18:54)
[2017-11-21] MEDS ORDERED: Acetaminophen 650mg/20.3ml solution UD PO STA (18:09)
[2017-11-21 18:15] LABS: B-TYPE NATRIURETIC PEPTIDE 853 pg/mL (0-450); TROPONIN I < 0.01 ng/mL
[2017-11-21 18:20] LABS: ALB/GLOB RATIO 0.9 (1.1-1.8); ALBUMIN 3.4 g/dL (3.0-4.8); ALT/SGPT 52 U/L (7-56); AST/SGOT 84 U/L (17-59); BLOOD UREA NITROGEN 30 mg/dL (7-21); CALCIUM 9.4 mg/dL (8.4-10.5); GFR AFRICAN-AMERICAN > 60; GFR NON-AFRICAN AMERICAN > 60
[2017-11-21] MEDS ORDERED: Potassium Chloride 40 mEq/30 ml LIQ UD PO STA (18:24)
--- NOTE | 2017-11-21 18:26 | RAD ---
HISTORY: Sepsis Patient COMPARISON: 10/29/2017. FINDINGS: The right central venous catheter terminates at the cavoatrial junction LUNGS: The lungs are hyperinflated and there is peribronchial thickening with chronic changes in both lungs. There is consolidation in the right lower lobe and fibrotic changes in the right upper lobe. There is left basilar atelectasis. PLEURA: No significant pleural effusion identified, no pneumothorax apparent. CARDIOVASCULAR: The heart is normal in size. Status post CABG. There is unfolding of the aorta. OSSEOUS STRUCTURES: Diffuse bone demineralization. 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 Status post left shoulder arthroplasty VISUALIZED UPPER ABDOMEN: Normal. OTHER FINDINGS: None. IMPRESSION: Suspect right lower lobe pneumonia. Follow-up is advised. Background of COPD. Fibrotic changes in the right upper lobe.
[2017-11-21] MEDS ORDERED: Albuterol-Ipratrop 3 mg / 0.5 (3 ml) UD IH PRN (19:10)
[2017-11-21] MEDS ORDERED: Acetaminophen 650mg/20.3ml solution UD PO PRN (19:11)
--- NOTE | 2017-11-21 20:48 | CARD ---
APPROVED REPORT EKG Measurement Heart [id number] <Conclusion> Sinus tachycardia Possible Left atrial enlargement Left ventricular hypertrophy with repolarization abnormality Abnormal ECG
[2017-11-21] MEDS ORDERED: Acetaminophen 160 mg/5 ml UD PEG PRN (21:07)
[2017-11-21] MEDS ORDERED: Acetaminophen 650mg/20.3ml solution UD PEG PRN (21:11)
--- NOTE | 2017-11-21 21:15 | PCM.SEPTIC ---
<Norris Acosta - Last Filed: 11/21/17 21:14> Sepsis Progress Note - Reassessment Type Date of Evaluation: 11/21/17 Time of Evaluation: 21:14 Reassessment Type: Non-invasive reassessment - Non Invasive Reassessment Were the most recent vital sign reviewed: Yes Vital Sign (Latest): Temp Pulse Resp BP Pulse Ox 102.1 F H 133 H 32 H 112/46 L 96 11/21/17 16:55 11/21/17 19:12 11/21/17 19:12 11/21/17 19:12 11/21/17 19:12 Cardiovascular: Yes: Edema (b/l LE), Murmur, Tachycardia. No: Regular Rate, Rhythm, Chest Non Tender, Gallop, JVD, Ectopy, Friction Rub, Irregularly Irregular Respiratory: Yes: Normal Breath Sounds. No: Decreased Breath Sounds, Accessory Muscle Use, Crackles, Rales, Rhonchi, Stridor, Wheezing, Respiratory Distress, Plerual Rub Capillary Refill: Normal (Less than 2 sec) Pulses: Normal Radial, Decreased Dorsalis Pedis, Decreased Posterior Tibialis Skin: Normal Color, Warm, Dry - Invasive Reassessment (complete 2 of 4) Was a Central Venous Pressure Measurement obtained within 6 Hours after the presentation of septic shock: No Was a central venous oxygen measurement obtained within 6 hours after the presentation of septic shock: No Was a bedside cardiovascular ultrasound performed within 6 hours after the presentation of septic shock: No Was a passive leg raise performed or was a fluid challenge performed within 6 hrs of the initial fluid bolus: No Fluid Challenge performed: No <Farzad Rose - Last Filed: 11/22/17 03:48> Sepsis Progress Note - Non Invasive Reassessment Vital Sign (Latest): Temp Pulse Resp BP Pulse Ox 97.5 F L 120 H 20 112/46 L 96 11/21/17 22:57 11/21/17 21:45 11/21/17 21:45 11/21/17 19:12 11/21/17 21:45 Attending/Attestation - Attestation I have personally seen and examined this patient.: Yes I have fully participated in the care of the patient.: Yes I have reviewed all pertinent clinical information, including history, physical exam and plan: Yes Notes (Text): 11/22/17 03:46 Patient was seen at bedside. Has no complaints. Disoriented. medical record reviewed. 21:15 lactate 3.1. Has received antibiotics, IV fluids, awaiting ID consult. Agree with medical coding instructor's note. Cadence Escalera R 87 Y W male admitted with sob, anorexia,RLL PNA,leukocytosis, borderline anemia, hypokalemia. Has PMH of COPD, throat (laryngeal) cancer, falls, angioplasty, former smoker, left shoulder replacement , right ankle surgery, G-tube, port-a-cath, right shoulder rotator cuff repair.
[2017-11-21 21:28] LABS: VENOUS BLOOD GAS BASE EXCESS 4.6 mmol/L (0.0-2.0); VENOUS BLOOD GAS PO2 142 mm/Hg (30-55); VENOUS BLOOD PH 7.48 (7.32-7.43)
[2017-11-21] MEDS ORDERED: Sodium Chloride 0.9% 1,000 ML IV STA (22:01)
[2017-11-21] MEDS ORDERED: Potassium Chloride 20 MEQ in Dextrose 5%/0.9% NS 1,000 ML IV SCH (22:15)
[2017-11-21] MEDS ORDERED: Acetaminophen 650mg/20.3ml solution UD GT PRN (23:01)
[2017-11-21] MEDS: MethylPREDNISolone 40 mg Vial IVP SCH (23:15)
[2017-11-21] MEDS: oxyCODONE 5 mg Immediate Release Tab PO PRN (23:15)
[2017-11-21] MEDS: Silver Sulfadiazine 1% Cream (25 gm) TP SCH (23:23)
[2017-11-21] MEDS: Lidocaine 5% Oint(35 gm) TOP SCH (23:23)
[2017-11-22 06:28] LABS: MEAN CELL VOLUME 87.5 fl (80.0-105.0); MEAN CORPUSCULAR HGB CONC 33.1 g/dl (31.0-37.0); RBC 3.28 10^6/uL (3.5-6.1); WHITE BLOOD COUNT 16.7 10^3/ul (4.5-11.0)
[2017-11-22 06:29] LABS: GRAN # 16.07 (1.4-6.5); GRAN % 96.2 % (50.0-68.0); LYMPH # 0.4 (1.2-3.4); LYMPH % 2.3 % (22.0-35.0); MEAN PLATELET VOLUME 9.2 fl (7.0-11.0); MONO # 0.3 (0.1-0.6); MONO % 1.5 % (1.0-6.0); PLATELET COUNT 325 10^3/uL (120.0-450.0); RED CELL DISTRIBUTION WIDTH 15.1 % (11.5-14.5)
[2017-11-22] MEDS ORDERED: Meropenem 1 GM in Dextrose 5% In Water 100 ML IVPB SCH (06:30)
[2017-11-22] MEDS: Pantoprazole 40 mg Susp UD PO SCH (06:45)
[2017-11-22] MEDS: Vancomycin 1gm in NS 250ml 1 GM/250 ML BAG IVPB SCH ×2 (06:45→17:49)
[2017-11-22 07:17] LABS: ALB/GLOB RATIO 0.9 (1.1-1.8); ALBUMIN 2.8 g/dL (3.0-4.8); ALT/SGPT 51 U/L (7-56); AST/SGOT 46 U/L (17-59); BLOOD UREA NITROGEN 29 mg/dL (7-21); CALCIUM 8.8 mg/dL (8.4-10.5); GFR AFRICAN-AMERICAN > 60; GFR NON-AFRICAN AMERICAN > 60
[2017-11-22] MEDS: Morphine 2 mg/2 mL syringe IVP PRN ×3 (07:40→22:17)
[2017-11-22 07:49] LABS: HEMOGLOBIN 9.5 g/dL (14.0-18.0)
[2017-11-22 08:21] LABS: BAND 1 % (0-2); LYMPHOCYTE 1 % (22.0-35.0); NEUTROPHIL 98 % (50.0-70.0)
[2017-11-22 08:22] LABS: BURR CELLS SLIGHT; MICROCYTOSIS SLIGHT; POIKILOCYTOSIS SLIGHT
[2017-11-22 08:23] LABS: PLATELET ESTIMATE NORMAL (NORMAL)
--- NOTE | 2017-11-22 08:23 | HP ---
For Dr. Smith. CHIEF COMPLAINT: Severe shortness of breath, tachypnea. HISTORY OF PRESENT ILLNESS: The patient is an 87-year-old male admitted by the emergency room to the telemetry floor for severe shortness of breath progressively worse over the past few days with lack of appetite with the patient then noted to have significant tachypnea with consideration for intubation and evaluation in the emergency room. 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 He also has severe radiation dermatitis with intense pain to the left neck and chest wall. With this, patient is now seen in the emergency room reporting that his breathing is modestly improved and oxygen was given along with treatment as per Dr. East, emergency room director. Also conversation with Dr. Moyer, Pulmonology. Solu-Medrol was given with good effect. Patient is now also noted to have a right lower lobe infiltrate with aspiration pneumonia suspected and sepsis. ALLERGIES: NO KNOWN ALLERGIES. FAMILY HISTORY AND SOCIAL HISTORY: History of cigarette smoking, 3 packs a day, quit 40 years ago. Denies alcohol use in the past 7 years. Two sons, alive and well, one is intensive care unit nurse. MEDICATIONS: Patient's medicines include Plavix 75 mg a day, metoprolol 25 mg twice a day, aspirin 81 mg a day coated, Protonix 40 once a day, oxycodone 5 mg every 6 hours p.r.n., gabapentin 300 mg b.i.d., Synthroid 50 mcg daily, Amitiza 24 mcg twice a day, lidocaine 5% gel topical . THE DICTATION WAS CUT OFF ABRUPTLY BY THE SYSTEM WITH A SECOND CONTINUATION OF THE DICTATION THEN DONE!!!!!!! Gary Zapata MD [facility]
[2017-11-22] MEDS: Azithromycin 500MG/NS 250ml 500 MG/250 ML BAG IVPB SCH (09:30)
[2017-11-22] MEDS: MethylPREDNISolone 40 mg Vial IVP SCH ×2 (09:31→20:59)
[2017-11-22] MEDS: oxyCODONE 5 mg Immediate Release Tab PO PRN (09:31)
[2017-11-22] MEDS: Lidocaine 5% Oint(35 gm) TOP SCH ×2 (09:32→17:54)
[2017-11-22] MEDS: Silver Sulfadiazine 1% Cream (25 gm) TP SCH ×2 (09:33→17:54)
[2017-11-22] MEDS: Levothyroxine 100 mcg (0.1 mg) Inj IVP SCH (09:40)
[2017-11-22] MEDS: Tolvaptan 15 MG TAB PO SCH (09:48)
--- NOTE | 2017-11-22 10:20 | CP.PCM.PN ---
Subjective - Date & Time of Evaluation Date of Evaluation: 11/22/17 Time of Evaluation: 09:20 - Subjective Subjective: Heme-onc Progress Note, Vadim Brooks DO, PGY-2 IM This is an 87 yo M with PMH of stage LALO larygneal carcinoma extending into/involving the thyroid/cricoid cartilage (on radiation and Erbitux therapy, s/p PEG tube for feeds), HTN, CAD s/p CABG, radiation dermatitis with MRSA cellulitis, and prior unspecified skin tumors [place] [facility] [place] of breath and lack of appetite for 1 week. Patient seen and examined at bedside in the TCU. Speech remains at baseline today. Reports improved pain with addition of Gabapentin overnight, but had discomfort with his lidoderm patch, so it was removed, and his pain has been better since (will d/c the lidoderm patch). Continues to tolerate diet well. Denies chest pain, shortness of breath, nausea, diarrhea, emesis, hemoptysis, diarrhea, melena. Reports ambulating well with PT. Objective - Vital Signs/Intake and Output Vital Signs (last 24 hours): Temp Pulse Resp BP Pulse Ox 97.9 F 99 H 19 128/62 97 11/22/17 06:00 11/22/17 08:07 11/22/17 06:00 11/22/17 06:00 11/22/17 06:00 Intake and Output: 11/22/17 11/22/17 06:59 18:59 Intake Total 720 Balance 720 - Medications Medications: Current Medications Acetaminophen (Tylenol 650mg/20.3ml Solution Ud) 650 mg PEG Q4H PRN PRN Reason: Pain, Mild (1-3) Acetaminophen (Tylenol 650mg/20.3ml Solution Ud) 640 mg GT Q4 PRN PRN Reason: Fever >100.4 F Albuterol/Ipratropium (Duoneb 3 Mg/0.5 Mg (3 Ml) Ud) 3 ml IH Q3H PRN PRN Reason: Shortness of Breath Aspirin (Ecotrin) [address] [facility] Last Admin: 11/22/17 09:31 Dose: 81 mg Clopidogrel Bisulfate (Plavix) [address] [facility] Last Admin: 11/22/17 09:31 Dose: 75 mg Gabapentin (Neurontin) [address] [facility] Last Admin: 11/22/17 09:31 Dose: 300 mg Potassium Chloride 20 meq/ (Dextrose/Sodium Chloride) 1,010 mls @ 50 mls/hr IV .[id number] [facility] Last Admin: 11/21/17 23:08 Dose: 50 mls/hr Vancomycin HCl (Vancomycin 1gm) 1 gm in 250 mls @ 167 mls/hr IVPB Q12H [facility] PRN Reason: Protocol Last Admin: 11/22/17 06:45 Dose: 167 mls/hr Azithromycin (Zithromax 500mg In Ns) 500 mg in 250 mls @ 167 mls/hr IVPB DAILY [facility] PRN Reason: Protocol Last Admin: 11/22/17 09:30 Dose: 167 mls/hr Meropenem (Merrem Iv 1 Gm Premix) 50 mls @ 100 mls/hr IVPB Q8 [facility] PRN Reason: Protocol Stop: 11/29/17 06:31 Levothyroxine Sodium (Synthroid) [address] [facility] Lidocaine (Lidocaine 5%) [address] [facility] Last Admin: 11/22/17 09:32 Dose: 1 applic Methylprednisolone (Solu-Medrol) [address] [facility] Last Admin: 11/22/17 09:31 Dose: 30 mg Metoprolol Tartrate (Lopressor) [address] [facility] Last Admin: 11/22/17 08:07 Dose: 25 mg Morphine Sulfate (Morphine) 2 mg IVP Q4H PRN PRN Reason: Pain, severe (8-10) Last Admin: 11/22/17 07:40 Dose: 2 mg Non-Formulary Medication (Amitiza) [address] [facility] Oxycodone HCl (Oxycodone Immediate Release Tab) 5 mg PO Q6H PRN PRN Reason: Pain, moderate (4-7) Last Admin: 11/22/17 09:31 Dose: 5 mg Pantoprazole Sodium (Protonix Susp) [address] [facility] Last Admin: 11/22/17 06:45 Dose: 40 mg Silver Sulfadiazine (Silvadene 1% 25 Gm) [address] [facility] Last Admin: 11/22/17 09:33 Dose: 25 gm Tolvaptan (Samsca) [address] [facility] Stop: 11/23/17 21:20 Last Admin: 04/05/18 09:48 Dose: 15 mg - Labs Labs: 11/22/17 06:05 11/22/17 06:05 PT 13.6 SECONDS (9.4-12.5) H 11/21/17 17:28 INR 1.19 (0.93-1.08) H 11/21/17 17:28 APTT 29.9 Seconds (25.1-36.5) 11/21/17 17:28 - Additional Findings Additional findings: - Constitutional Appears: Non-toxic, No Acute Distress, Cachectic (very cachetic, can see sternotomy wires from CABG pushing up through skin at sterum), Chronically Ill - Head Exam Head Exam: ATRAUMATIC, NORMAL INSPECTION, NORMOCEPHALIC - Eye Exam Eye Exam: EOMI, Normal appearance. absent: Conjunctival injection, Scleral icterus Pupil Exam: absent: Irregular, Unequal - ENT Exam ENT Exam: Mucous Membranes Dry Additional comments: Hoarse speech No petechiae or active bleeding sources identified No exudates or candidiasis appreciated - Neck Exam Neck exam: Positive for: Full Rom - Respiratory Exam Respiratory Exam: NORMAL BREATHING PATTERN. absent: Accessory Muscle Use, Rales , Rhonchi, Wheezes - Cardiovascular Exam Cardiovascular Exam: REGULAR RHYTHM, RRR, +S1, +S2. absent: Bradycardia, Tachycardia, Irregular Rhythm, +S4 - GI/Abdominal Exam GI & Abdominal Exam: Normal Bowel Sounds, Soft. absent: Diminished Bowel Sounds , Distended, Firm, Hyperactive Bowel Sounds, Hypoactive Bowel Sounds, Rigid, Tenderness - Extremities Exam Extremities exam: Positive for: pedal pulses present. Negative for: calf tenderness, pedal edema, tenderness Additional comments: mildly waxy-like skin at bilateral LE from extending from feet to ankles distal LE warm to palpation - Neurological Exam Neurological exam: Alert, Oriented x3 Additional comments: following all commands appropriately, moving all extremities spontaneously motor appears grossly intact and equal bilaterally - Psychiatric Exam Psychiatric exam: Normal Affect, Normal Mood - Skin Skin Exam: Dry, Intact, Normal Color, Warm (Except as listed below) Additional comments: Sternotomy wires visualized pushing up skin at sternum, right chest port easily visualized through skin, but neither with breakdown or breakthrough of skin Discoloration at site of previous left arm/shoulder at site of prior cellulitis , improved over appearance at discharge, still some electrical shooting pains at site Assessment and Plan - Assessment and Plan (Free Text) Assessment: This is an 87 yo M with PMH of 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 - stable Right lower lobe lung infiltrate, likely PNA Neuropathic pain at prior cellulitis site, possible residual pain from herpetic rxn -CXR on admit suspicious for right lower lobe infiltrate, concerning for HCAP vs aspiration pneumonia, pending CT chest for further eval -ID following, appreciate their recs; Vanco, Zithromax, and Merrem; pending cx results (blood, urine, sputum), procal, and urine legionella antigen -Continue ASA and Plavix given hx of CAD s/p CABG, continue Lipitor -continue metolazone, Metoprolol -Continue Protonix for GI ppx -Certified Nursing Assistant Instructor consulted for tube feeding until swallow study passed -Echo obtained during last admission notable for EF 63%, mild aortic sclerosis, otherwise unremarkable -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 Smith.
--- NOTE | 2017-11-22 11:04 | CON ---
DATE: 11/22/2017 NEUROLOGY CONSULTATION CHIEF COMPLAINT: Left neck and shoulder neuropathic pain. 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 I was consulted for his neuralgic pain in the left part of his neck. He was on gabapentin 300 mg p.o. b.i.d. We will increase to 400 p.o. b.i.d. and recommend lidocaine cream for now. PAST MEDICAL HISTORY: As above. MEDICATIONS: Reviewed by nurse's reconciliation sheet. ALLERGIES: NO KNOWN DRUG ALLERGIES. FAMILY HISTORY AND SOCIAL HISTORY: History of cigarette smoking 3 packs a day, quit 40 years ago. Denies any alcohol use. Two sons are alive and lives well. One is an attentive care nurse. REVIEW OF SYSTEMS: Fourteen-point review of systems negative except per the HPI. LABORATORY DATA: Sodium is 135, potassium 3.5, chloride 97, BUN of 20, creatinine 0.6, random glucose 188. PHYSICAL EXAMINATION: VITAL SIGNS: Temperature of 97.9, pulse rate of 99, blood pressure 128/62, respiratory rate 19, oxygen saturation 97% by room air. GENERAL: The patient is sitting up in bed, in no acute distress. HEENT: Atraumatic, normocephalic. PERRLA. Extraocular muscles intact. LUNGS: Decreased breath sounds bilaterally. Scattered rhonchi. HEART: S1, S2. Regular rate and rhythm. No murmurs, rubs or gallops. ABDOMEN: Soft, nontender and nondistended. Bowel sounds are present. EXTREMITIES: No clubbing. No cyanosis. Peripheral pulses 2+ felt bilaterally. SKIN: He has a mild waxy light skin on bilateral lower extremities extending from the feet to the ankle. He has a rash on the left part of his neck and shoulder. NEUROLOGIC: The patient is alert and oriented to person, place and year. Recalls after 5 minutes is 0/3. Poor attention span. Slow thought process. Cranial nerves II through XII intact. Motor exam: Moves all extremities equally. Slight increased tone throughout. He is very cachectic looking. Sensory exam: Decreased light touch and pinprick up to the calves bilaterally. Decreased vibration of the toes. DTRs are 2+ throughout, 1 at both knees and ankles. Coordination: [id number] intact. No dysmetria noted. Gait is deferred for now. ASSESSMENT AND PLAN: 1. This is an 87-year-old man with past medical history of stage IV laryngeal carcinoma extending with the involving thyroid and cricoid cartilage, status post radiation and Erbitux therapy; status post percutaneous endoscopic gastrostomy for tube feeds; hypertension; coronary artery disease and status post coronary artery bypass graft; history of radiation dermatitis; methicillin-resistant Staphylococcus aureus cellulitis; came in for worsening shortness of breath, tachypnea and poor appetite. Found to have some neuralgia pain in the left part of the neck in the dermatomal distribution, was on gabapentin 300 mg p.o. b.i.d. and lidocaine patch as an outpatient. At this time, he still continues to have pain, therefore we will increase the gabapentin to 400 mg p.o. b.i.d. and recommend 5% lidocaine cream to the left neck area into the area of pain. If the pain starts to increase more, we can also consider Cymbalta later in the future of 30 mg p.o. at bedtime, but for now we will continue gabapentin. 2. Continue his antibiotic treatments for his underlying pneumonia and sepsis. 3. Monitor electrolytes and recommend IV fluids and continue current present medical management. Thank you for this consult. Melvin Lockett MD
--- NOTE | 2017-11-22 11:11 | CP.PCM.CON ---
History of Present Illness - History of Present Illness History of Present Illness: 87 year old male with PMH of laryngeal CA, CAD s/p Coronary artery bypass surgery, and skin tumor, superinfection of left side of neck with bacteria (MRSA ), HSV, history of radiation dermatitis on left side of neck with superimposed cellulitis, grew MRSA was recently discharged from [facility] [place] for the left neck and shoulder infection and has been healing well. He is now back in [facility] [place] because of progressively worsening SOB for the past week with cough for the past 2-3 days. He did not develop fever or chills. He denies sore throat, no rhinorrhea, has some whitish phlegm, no headache or dizziness, has some chest pain on coughing, no abdominal pain, no diarrhea, no dysuria. In the ED, CXR was done which is suggestive of right lower lobe infiltrates. Infectious diseases consult is requested to further evaluate and manage. Review of Systems - Review of Systems All systems: reviewed and no additional remarkable complaints except (as per HPI ) Past Patient History - Infectious Disease Hx of Infectious Diseases: None - Past Social History Smoking Status: Never Smoked - CARDIAC Hx Cardiac Disorders: Yes - PULMONARY Hx Chronic Obstructive Pulmonary Disease (COPD): Yes - NEUROLOGICAL Hx Neurological Disorder: No - HEENT Hx HEENT Problems: Yes Other/Comment: THROAT CA - RENAL Hx Chronic Kidney Disease: No - ENDOCRINE/METABOLIC Hx Endocrine Disorders: No - HEMATOLOGICAL/ONCOLOGICAL Hx Cancer: Yes (throat) - INTEGUMENTARY Hx Dermatological Problems: No - MUSCULOSKELETAL/RHEUMATOLOGICAL Hx Falls: No - GASTROINTESTINAL Hx Gastrointestinal Disorders: Yes (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 Larynectomy. Bronoscopy. Right Shldr rotator cuff repair. Deviated septum repair - ANESTHESIA Hx Anesthesia: Yes Meds Allergies/Adverse Reactions: Allergies Allergy/AdvReac Type Severity Reaction Status Date / Time No Known Allergies Allergy Verified 11/21/17 17:12 - Medications Medications: Current Medications Acetaminophen (Tylenol 650mg/20.3ml Solution Ud) 650 mg PEG Q4H PRN PRN Reason: Pain, Mild (1-3) Acetaminophen (Tylenol 650mg/20.3ml Solution Ud) 640 mg GT Q4 PRN PRN Reason: Fever >100.4 F Albuterol/Ipratropium (Duoneb 3 Mg/0.5 Mg (3 Ml) Ud) 3 ml IH Q3H PRN PRN Reason: Shortness of Breath Aspirin (Ecotrin) 81 mg PO DAILY [facility] Clopidogrel Bisulfate (Plavix) 75 mg PO DAILY [facility] Gabapentin (Neurontin) 300 mg PO BID [facility] Potassium Chloride 20 meq/ (Dextrose/Sodium Chloride) 1,010 mls @ 50 mls/hr IV .[id number] [facility] Last Admin: 11/21/17 23:08 Dose: 50 mls/hr Levothyroxine Sodium (Synthroid) 50 mcg IVP DAILY [facility] Lidocaine (Lidocaine 5%) 0 gm TOP BID [facility] Last Admin: 11/21/17 23:23 Dose: 1 applic Methylprednisolone (Solu-Medrol) 30 mg IVP Q12 [facility] Last Admin: 11/21/17 23:15 Dose: 30 mg Metoprolol Tartrate (Lopressor) 25 mg PO BRKDIN [facility] Morphine Sulfate (Morphine) 2 mg IVP Q4H PRN PRN Reason: Pain, severe (8-10) Non-Formulary Medication (Amitiza) 24 mg PEG BID [facility] Oxycodone HCl (Oxycodone Immediate Release Tab) 5 mg PO Q6H PRN PRN Reason: Pain, moderate (4-7) Last Admin: 11/21/17 23:15 Dose: 5 mg Pantoprazole Sodium (Protonix Susp) 40 mg PO 0600 [facility] Silver Sulfadiazine (Silvadene 1% 25 Gm) 0 gm TP BID [facility] Last Admin: 11/21/17 23:23 Dose: 25 gm Tolvaptan (Samsca) 15 mg PO DAILY [facility] Stop: 11/23/17 21:20 Physical Exam - Constitutional Appears: Non-toxic, Cachectic, Chronically Ill - Head Exam Head Exam: NORMAL INSPECTION - ENT Exam ENT Exam: Mucous Membranes Moist - Neck Exam Neck exam: Negative for: Lymphadenopathy, Meningismus Additional comments: left side of neck and shoulder as well as anterior chest is healing well - Respiratory Exam Respiratory Exam: Decreased Breath Sounds, Rales (scattered) - Cardiovascular Exam Cardiovascular Exam: +S1, +S2 - GI/Abdominal Exam GI & Abdominal Exam: Soft. absent: Tenderness Results - Vital Signs Recent Vital Signs: Last Vital Signs Temp 97.5 F L 11/22/17 00:01 Pulse 103 H 11/22/17 05:44 Resp 19 11/22/17 00:01 BP 125/49 L 11/22/17 00:01 Pulse Ox 96 11/22/17 00:01 - Labs Result Diagrams: 11/22/17 06:05 11/22/17 06:05 Labs: Laboratory Results - last 24 hr 11/21/17 21:15 pO2 142 H VBG pH 7.48 H VBG pCO2 38.0 L VBG HCO3 28.3 H VBG Total CO2 29.5 H VBG O2 Sat (Calc) 99.7 H VBG Base Excess 4.6 H VBG Potassium 3.1 L Sodium 131.0 L Chloride 98.0 Glucose 320 H Lactate 3.8 H FiO2 21.0 Venous Blood Potassium 3.1 L Assessment & Plan - Assessment and Plan (Free Text) Plan: Assessment consider sepsis due to right lower lobe HCAP from possible gram positive cocci and/or gram negative bacilli and/or atypical organisms history of superinfection of left side of neck with bacteria (MRSA), R/O HSV, clinically improved and S/P treatment history of radiation dermatitis on left side of neck with superimposed cellulitis, growing MRSA throat cancer S/P port placement on chemotherapy and radiation therapy S/P PEG placement Plan started Vancomycin, Zithromax, Merrem and will follow up sputum cx, blood cx, PCT, urine Legionella Ag; reviewed CXR showing probable right lower lobe infiltrates will monitor clinically overall prognosis is poor
--- NOTE | 2017-11-22 11:54 | CT ---
PROCEDURE: CT Chest without contrast HISTORY: lung disease COMPARISON: CT 11/01/2017 TECHNIQUE: Contiguous axial images were obtained through the chest without intravenous contrast enhancement. Sagittal and coronal reconstructions were performed. Radiation dose (DLP): 310 mGy-cm. This CT exam was performed using one or more of the following dose reduction techniques: Automated exposure control, adjustment of the mA and/or kV according to patient size, and/or use of iterative reconstruction technique. FINDINGS: LUNGS: There is increasing consolidation in the right lower lobe consistent with pneumonia. There is no change in the fibrosis in the right apex and right upper lobe. There is also calcified scar in the left lung apex. MEDIASTINUM: Unremarkable thoracic aorta. No aneurysm. Normal sized heart. There is severe enlargement of the main pulmonary artery measuring up to 6 cm transversely. This consistent with pulmonary hypertension. This is unchanged. No lymphadenopathy. PLEURA: No pleural fluid. No pneumothorax. BONES: No fracture. No destructive lesion. UPPER ABDOMEN: Grossly unremarkable. OTHER FINDINGS: None. IMPRESSION: Increasing consolidation in the right lower lobe consistent with pneumonia. Chronic fibrosis in the upper lobes Severe enlargement of the pulmonary arteries consistent with pulmonary hypertension.
[2017-11-22] MEDS: AMITIZA 24 MG PEG SCH ×2 (12:22→17:37)
[2017-11-22 13:35] LABS: PH,URINE 6.5 (4.7-8.0); URINE APPEARANCE CLEAR (CLEAR); URINE BILIRUBIN NEGATIVE (NEGATIVE); URINE BLOOD NEGATIVE (NEGATIVE); URINE GLUCOSE (UA) 100 mg/dL (NEGATIVE); URINE LEUKOCYTE ESTERASE NEGATIVE Leu/uL (NEGATIVE); URINE PROTEIN TRACE mg/dL (<30 mg/dL); URINE UROBILINOGEN 0.2 E.U./dL (<1 E.U./dL)
[2017-11-22 13:36] LABS: URINE COLOR YELLOW (YELLOW)
[2017-11-22 13:42] LABS: URINE WBC NEGATIVE /hpf (0-6)
[2017-11-22] MEDS: Meropenem IV 1 gm in NS 50 ML IVPB SCH ×2 (14:26→20:59)
--- NOTE | 2017-11-22 16:13 | CP.PCM.CON ---
History of Present Illness - History of Present Illness History of Present Illness: Seen and examined earlier today, chart reviewed. Request for GI evaluation , h/o Dysphagia/s/p PEG. HPI: This is a 87 Y.O male with a history stage IV laryngeal carcinoma status post radiation with PEG brought to the emergency room with severe complaints of shortness of breath worsening over the past few days. The patient is also reported to have lack of appetite. The patient is seen on telemetry with improved symptoms. He received Solu-Medrol in the ER and is on maintenance dose. The patient currently denies any shortness of breath, nausea, abdominal pain. He is currently on continuous feedings at the rate of 40 cc an hour, tolerating, no reports of residuals. The patient reported that with shortness of breath he is unable to eat, was using PEG tube for nutrition. On admission he had a chest x-ray which showed right lower lobe inflitrates. He also has history of constipation , takes Amitiza and reports having regular bowel movements, his recent bowel movement was today and it was formed no reports of bleeding. He also has history of right neck shoulder cellulitis, this appears to have healed, skin is intact although he does still complain of discomfort in this area. Past medical history: Coronary artery disease status post CABG, COPD, radiation dermatitis Past surgical history angioplasty, left shoulder joint repair, laminectomy, EGD/ PEG on 06/2017, port placement Allergies: No known drug allergies Medications: Reviewed as per MAR Social history: History of tobacco use, denies EtOH, denies illicit drug use Family history: Noncontributory to this time ROS: Systems reviewed a positive findings see HPI Past Patient History - Infectious Disease Hx of Infectious Diseases: None - Past Social History Smoking Status: Never Smoked - CARDIAC Hx Cardiac Disorders: Yes Hx Hypertension: Yes - PULMONARY Hx Chronic Obstructive Pulmonary Disease (COPD): Yes - NEUROLOGICAL Hx Neurological Disorder: No - HEENT Hx HEENT Problems: Yes Other/Comment: THROAT CA - RENAL Hx Chronic Kidney Disease: No - ENDOCRINE/METABOLIC Hx Endocrine Disorders: No - HEMATOLOGICAL/ONCOLOGICAL Hx Cancer: Yes (throat) - INTEGUMENTARY Hx Dermatological Problems: No - MUSCULOSKELETAL/RHEUMATOLOGICAL Hx Falls: No - GASTROINTESTINAL Hx Gastrointestinal Disorders: Yes (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 Larynectomy. Bronoscopy. Right Shldr rotator cuff repair. Deviated septum repair - ANESTHESIA Hx Anesthesia: Yes Meds Allergies/Adverse Reactions: Allergies Allergy/AdvReac Type Severity Reaction Status Date / Time No Known Allergies Allergy Verified 11/21/17 17:12 - Medications Medications: Current Medications Acetaminophen (Tylenol 650mg/20.3ml Solution Ud) 650 mg PEG Q4H PRN PRN Reason: Pain, Mild (1-3) Acetaminophen (Tylenol 650mg/20.3ml Solution Ud) 640 mg GT Q4 PRN PRN Reason: Fever >100.4 F Albuterol/Ipratropium (Duoneb 3 Mg/0.5 Mg (3 Ml) Ud) 3 ml IH Q3H PRN PRN Reason: Shortness of Breath Arformoterol Tartrate (Brovana) 15 mcg IH [id number] [facility] Aspirin (Ecotrin) 81 mg PO DAILY [facility] Last Admin: 11/22/17 09:31 Dose: 81 mg Budesonide (Pulmicort Respules) 0.5 mg IH [id number] [facility] Clopidogrel Bisulfate (Plavix) 75 mg PO DAILY [facility] Last Admin: 11/22/17 09:31 Dose: 75 mg Gabapentin (Neurontin) 300 mg PO BID [facility] Last Admin: 11/22/17 09:31 Dose: 300 mg Vancomycin HCl (Vancomycin 1gm) 1 gm in 250 mls @ 167 mls/hr IVPB Q12H [facility] PRN Reason: Protocol Last Admin: 11/22/17 06:45 Dose: 167 mls/hr Azithromycin (Zithromax 500mg In Ns) 500 mg in 250 mls @ 167 mls/hr IVPB DAILY [facility] PRN Reason: Protocol Last Admin: 11/22/17 09:30 Dose: 167 mls/hr Meropenem (Merrem Iv 1 Gm Premix) 50 mls @ 100 mls/hr IVPB Q8 [facility] PRN Reason: Protocol Stop: 11/29/17 06:31 Last Admin: 11/22/17 14:26 Dose: 100 mls/hr Potassium Chloride (Potassium Chloride 20 Meq/100 Ml) 20 meq in 100 mls @ 50 mls/hr IVPB Q2H [facility] Stop: 11/22/17 18:44 Levothyroxine Sodium (Synthroid) 50 mcg IVP DAILY [facility] Last Admin: 11/22/17 09:40 Dose: 50 mcg Lidocaine (Lidocaine 5%) 0 gm TOP BID [facility] Last Admin: 11/22/17 09:32 Dose: 1 applic Methylprednisolone (Solu-Medrol) 30 mg IVP Q12 [facility] Last Admin: 11/22/17 09:31 Dose: 30 mg Metoprolol Tartrate (Lopressor) 25 mg PO BRKDIN [facility] Last Admin: 11/22/17 08:07 Dose: 25 mg Morphine Sulfate (Morphine) 2 mg IVP Q4H PRN PRN Reason: Pain, severe (8-10) Last Admin: 11/22/17 07:40 Dose: 2 mg Non-Formulary Medication (Amitiza) 24 mg PEG BID [facility] Last Admin: 11/22/17 12:22 Dose: Not Given Oxycodone HCl (Oxycodone Immediate Release Tab) 5 mg PO Q6H PRN PRN Reason: Pain, moderate (4-7) Last Admin: 11/22/17 09:31 Dose: 5 mg Pantoprazole Sodium (Protonix Susp) 40 mg PO 0600 [facility] Last Admin: 11/22/17 06:45 Dose: 40 mg Silver Sulfadiazine (Silvadene 1% 25 Gm) 0 gm TP BID [facility] Last Admin: 11/22/17 09:33 Dose: 25 gm Tolvaptan (Samsca) 15 mg PO DAILY [facility] Stop: 11/23/17 21:20 Last Admin: 11/22/17 09:48 Dose: 15 mg Physical Exam - Constitutional Appears: No Acute Distress, Cachectic - Head Exam Head Exam: NORMOCEPHALIC - Eye Exam Eye Exam: Normal appearance. absent: Scleral icterus - ENT Exam ENT Exam: Mucous Membranes Moist - Neck Exam Neck exam: Positive for: Normal Inspection Additional comments: left neck/shoulder radiation dermatitis improved skin is dry and intact no erythema or scabs - Respiratory Exam Respiratory Exam: NORMAL BREATHING PATTERN. absent: Respiratory Distress - Cardiovascular Exam Cardiovascular Exam: +S1, +S2 (she is) - GI/Abdominal Exam GI & Abdominal Exam: Normal Bowel Sounds, Soft. absent: Guarding, Rebound, Tenderness Additional comments: positive PEG, insertion site is dry and intact no erythema - Extremities Exam Extremities exam: Positive for: pedal edema, pedal pulses present. Negative for : calf tenderness - Neurological Exam Neurological exam: Alert, Oriented x3 Results - Vital Signs Recent Vital Signs: Last Vital Signs Temp 97.2 F L 11/22/17 12:00 Pulse 88 11/22/17 12:00 Resp 19 11/22/17 12:00 BP 141/62 11/22/17 12:00 Pulse Ox 97 11/22/17 06:00 - Labs Result Diagrams: 11/22/17 06:05 11/22/17 06:05 Labs: Laboratory Results - last 24 hr 11/21/17 11/22/17 11/22/17 21:15 06:05 06:05 WBC 16.7 H RBC 3.28 L Hgb 9.5 L D Hct 28.7 L MCV 87.5 MCH 29.0 MCHC 33.1 RDW 15.1 H Plt Count 325 MPV 9.2 Gran % 96.2 H Lymph % (Auto) 2.3 L [place] % (Auto) 1.5 Eos % (Auto) 0.0 L Baso % (Auto) 0.0 Gran # 16.07 H Lymph # (Auto) 0.4 L [place] # (Auto) 0.3 Eos # (Auto) 0.0 Baso # (Auto) 0.00 Neutrophils % (Manual) 98 H Band Neutrophils % 1 Lymphocytes % (Manual) 1 L Monocytes % (Manual) TEST NOT PERFORMED Platelet Evaluation Normal Poikilocytosis (manual Slight Microcytosis (manual) Slight Ana María Cells Slight pO2 142 H VBG pH 7.48 H VBG pCO2 38.0 L VBG HCO3 28.3 H VBG Total CO2 29.5 H VBG O2 Sat (Calc) 99.7 H VBG Base Excess 4.6 H VBG Potassium 3.1 L Sodium 131.0 L 135 Chloride 98.0 97 L Glucose 320 H Lactate 3.8 H FiO2 21.0 Potassium 3.5 L Carbon Dioxide 31 Anion Gap 11 BUN 29 H Creatinine 0.6 L Est GFR ( Amer) > 60 Est GFR (Non-Af Amer) > 60 Random Glucose 188 H Calcium 8.8 Total Bilirubin 0.9 AST 46 ALT 51 Alkaline Phosphatase 80 Total Protein 5.9 Albumin 2.8 L Globulin 3.1 Albumin/Globulin Ratio 0.9 L Venous Blood Potassium 3.1 L Urine Color Urine Appearance Urine pH Ur Specific [place] Urine Protein Urine Glucose (UA) Urine Ketones Urine Blood Urine Nitrate Urine Bilirubin Urine Urobilinogen Ur Leukocyte Esterase Urine RBC Urine WBC 11/22/17 12:30 WBC RBC Hgb Hct MCV MCH MCHC RDW Plt Count MPV Gran % Lymph % (Auto) [place] % (Auto) Eos % (Auto) Baso % (Auto) Gran # Lymph # (Auto) [place] # (Auto) Eos # (Auto) Baso # (Auto) Neutrophils % (Manual) Band Neutrophils % Lymphocytes % (Manual) Monocytes % (Manual) Platelet Evaluation Poikilocytosis (manual Microcytosis (manual) Essie Cells pO2 VBG pH VBG pCO2 VBG HCO3 VBG Total CO2 VBG O2 Sat (Calc) VBG Base Excess VBG Potassium Sodium Chloride Glucose Lactate FiO2 Potassium Carbon Dioxide Anion Gap BUN Creatinine Est GFR ( Amer) Est GFR (Non-Af Amer) Random Glucose Calcium Total Bilirubin AST ALT Alkaline Phosphatase Total Protein Albumin Globulin Albumin/Globulin Ratio Venous Blood Potassium Urine Color Yellow Urine Appearance Clear Urine pH 6.5 Ur Specific [place]ril 1.015 Urine Protein Trace H Urine Glucose (UA) 100 H Urine Ketones Negative Urine Blood Negative Urine Nitrate Negative Urine Bilirubin Negative Urine Urobilinogen 0.2 Ur Leukocyte Esterase Negative Urine RBC 1 - 3 Urine WBC Negative Assessment & Plan - Assessment and Plan (Free Text) Assessment: ASSESSMENT: Respiratory distress improved Sepsis, s/p CXR reporting right lower lobe infiltrate suspected aspiration pneumonia Laryngeal cancer, s/p radiation and chemotherapy Dysphagia secondary to above status post PEG Improved shortness of breath CAD, status post CABG Hypertension Constipation Plan: NPO Jevity 40 cc/hr check residuals aspiration precautions On aspirin and Plavix on Protonix 40 daily On IV antibiotics on Solu-Medrol As per oncology/pulmonology and ID Thank you for this consult and for allowing us to participate in your patient's care, further recommendations based upon clinical course. Seen and discussed with Dr. Foreman.
--- NOTE | 2017-11-22 16:36 | CON ---
DATE: 11/22/2017 REASON FOR CONSULTATION: Hyponatremia, hypokalemia. HISTORY OF PRESENTING ILLNESS: An 87-year-old male known to me from prior evaluation. The patient was brought to the emergency room yesterday with complaints of shortness of breath. The patient has a history of chronic shortness of breath, but it was progressively weak for the last 1 week. The patient is on PEG feeds at home. As per the nursing staff, son reported that he was giving large bolus feeding. The patient was vomiting. May have aspirated. He denies any cough. He denies any fevers. He denies any chest tightness. In the emergency room, he was found to have elevated WBC count. He was also found to have a temperature of 102.1. He was tachycardic with a pulse rate of 123. Consultation is requested for a sodium of 134 and a potassium of 3.2. PAST MEDICAL AND SURGICAL HISTORY: The patient has stage IV laryngeal CA, hypertension, CAD, history of CABG, radiation esophagitis, dysphagia, lack of appetite, weight loss, poor p.o. intake, chronic hyponatremia, SIADH. FAMILY HISTORY: Noncontributory. SOCIAL HISTORY: Ex-smoker, no alcohol use, no IV drug abuse. ALLERGIES: NO KNOWN DRUG ALLERGIES. MEDICATIONS AT HOME: Plavix, metoprolol, aspirin, Protonix, oxycodone, gabapentin, Synthroid, Amitiza, lidocaine, Samsca every other day 15 mg, PEG feeds. REVIEW OF SYSTEMS: All systems are reviewed. Pertinent positives as mentioned in history of presenting illness, rest unremarkable. PHYSICAL EXAMINATION: GENERAL: Thinly built elderly male, cachectic appearing, lying in bed. VITAL SIGNS: Blood pressure 141/62, heart rate 88, respiratory rate 18, temperature 97.2, T-max is 102.1. HEENT: Normocephalic, atraumatic. NECK: Supple, no JVD. LUNGS: Bilateral equal air entry, bilateral equal expansion, no rales appreciated anteriorly. CARDIAC: S1 and S2, regular rate and rhythm, no murmur, no rub. ABDOMEN: Soft, nondistended, nontender, bowel sounds present, positive PEG. EXTREMITIES: No lower extremity edema, chronic stasis changes. INTAKE AND OUTPUT: 720/not charted. LABORATORY DATA: WBC 16.7, hemoglobin 9.5, hematocrit 28.7, platelets 325. Sodium 135, potassium 3.5, chloride 97, CO2 of 31, BUN 29, creatinine 0.6, glucose 188, calcium 8.8, total bili 0.9, AST 46, ALT 51, albumin 2.8. Urinalysis: Yellow, clear, pH 6.5, specific gravity 1.015, protein trace, glucose 100, ketones negative, blood negative, nitrite negative. Chest CT done this morning shows right lower lobe consolidation consistent with pneumonia. ASSESSMENT: 1. Aspiration pneumonia, right lower lobe infiltrate. 2. Cachexia. 3. Chronic hyponatremia, syndrome of inappropriate antidiuretic hormone, sodium is pretty good right now. 4. Hypokalemia, resolving. 5. Stage IV laryngeal cancer. 6. Malnutrition, hypoalbuminemia, on percutaneous endoscopic gastrostomy feeds. PLAN: 1. Antibiotics for aspiration pneumonia as per ID recommendations. 2. Discontinue IV fluids. 3. Continue PEG feeds. 4. Continue tolvaptan 15 mg every other day. 5. Replace potassium. Marissa Cohen MD
[2017-11-22] MEDS: Arformoterol 15 mcg/2 ml Inh Sol IH SCH (21:45)
[2017-11-22] MEDS: Budesonide 0.5 mg/2 ml Inhal Susp UD IH SCH (21:45)
--- NOTE | 2017-11-22 22:11 | CON ---
DATE: PULMONARY CONSULT REFERRING PHYSICIAN: Gary Zapata MD REASON FOR CONSULTATION: Cough, shortness of breath, chronic lung disease, probably aspiration, history of laryngeal carcinoma. HISTORY OF PRESENT ILLNESS: This is an 87-year-old gentleman with known history of laryngeal carcinoma stage IV, with metastatic disease, just finished his radiation therapy, also finished his chemotherapy, recently seen at Dr. Smith's office, had a hydration therapy done, recently discharged from the hospital. Other issues are hypertension, coronary artery disease, history of coronary artery bypass surgery, radiation induced dermatitis, who comes into ER with fever up to 102, cough and shortness of breath. I spoke to Dr. Gary Zapata yesterday, also spoke to ER physician. The patient was given antibiotics, IV fluid, steroids. This morning he feels little better. Decreased cough. Decreased shortness of breath. No nausea. No vomiting or diarrhea. No leg pain or leg swelling. Has oropharyngeal dysphagia and the G-tube. According to the patient, while at home, he had been drinking some water, but no p.o. food intake. PAST MEDICAL HISTORY: Chronic obstructive lung disease, hypertension, coronary artery disease, history of coronary stent, laryngeal carcinoma with metastatic disease, status post radiation and chemotherapy. ALLERGIES: NONE KNOWN. SOCIAL HISTORY: Former smoker. Denies any alcohol use. FAMILY HISTORY: No significant cardiopulmonary disease reported. MEDICATIONS: He is on Amitiza 24 mcg twice a day, DuoNeb every 3 hours p.r.n., Ecotrin 81 mg daily, lidocaine patch to the affected area, metoprolol tartrate 25 mg twice a day, meropenem 1 g IV every 8 hours, morphine 2 mg IV every 4 hours p.r.n., gabapentin 300 mg twice a day, oxycodone immediate release 5 mg every 6 hours p.r.n., Plavix 75 mg daily, IV fluid with potassium 60 mL per hour, Protonix 40 mg daily, getting tolvaptan 15 mg daily, Solu-Medrol 20 mg every 12 hours, levothyroxine 50 mcg IV daily, Tylenol p.r.n. basis, vancomycin 1 g IV every 12 hour, Zithromax 500 mg daily. REVIEW OF SYSTEMS: No headache, no rhinitis. Has some cough, shortness of breath, but much better than yesterday. No nausea, no vomiting, no diarrhea, no dysuria. No leg pain or leg swelling. PHYSICAL EXAMINATION: GENERAL: Lying in the bed, mild distress. VITAL SIGNS: Temperature is 98, heart rate is 99, T max on admission was 102, blood pressure 128/62, pulse ox 04:20 % on nasal cannula. HEENT: Dry mucous membrane. Crowded airway. NECK: Supple. No JVD. LUNGS: Had a scattered rhonchi. HEART: S1 and S2, has a right chest [id number]. ABDOMEN: Soft, nontender. G-tube area looks okay. EXTREMITIES: There is no edema. NEUROLOGIC: Awake, alert, follows simple commands. LABORATORY DATA: Hemoglobin 9.5, hematocrit 28.7, WBC 16.7, platelet is 325. INR 1.1. VBG showed pH 7.42, pCO2 of 38, O2 142. Sodium 135, potassium 2.5, chloride 97, bicarbonate 31, BUN 29, creatinine 0.6, glucose 188, calcium is 8.8. AST is 46, ALT 51, alk phos is 80, albumin is 2.8. Serology testing shows influenza A and B is negative. Chest x-ray done in ER yesterday shows suspected right lower lobe pneumonia, background COPD, fibrotic changes in the right upper lobe. IMPRESSION AND PLAN: Unresectable laryngeal carcinoma and metastatic disease, status post radiation and chemotherapy, chronic obstructive lung disease, hypertension, history of hyponatremia, status post cellulitis of upper chest area secondary to radiation therapy, recently has a staph infection, oropharyngeal dysphagia requiring G-tube, malnutrition. Case discussed with Dr. Gary Zapata last night. Also spoke to ER physician. I agree with the present treatment. My feeling is may be his breathing was triggered by oral fluid intake, so we will continue steroids, inhaled bronchodilator, antibiotics as per Infectious Diseases, gastric prophylaxis, deep vein thrombosis prophylaxis. We will add artificial saliva to the mouth on p.r.n. basis to keep mouth moist. Keep head elevated at 45 degrees. We will suggest getting CAT scan of the chest to evaluate the lung parenchyma, should have a full pulmonary function test upon discharge as outpatient. Thank you and we will follow with you. Masoud Moyer MD [facility] # [id number]
[2017-11-23] MEDS: Morphine 2 mg/2 mL syringe IVP PRN ×3 (04:35→20:19)
[2017-11-23] MEDS: Pantoprazole 40 mg Susp UD PO SCH (05:31)
[2017-11-23] MEDS: Meropenem IV 1 gm in NS 50 ML IVPB SCH ×3 (05:31→21:49)
[2017-11-23] MEDS: Vancomycin 1gm in NS 250ml 1 GM/250 ML BAG IVPB SCH ×2 (05:32→17:54)
[2017-11-23 06:21] LABS: GRAN # 18.74 (1.4-6.5); GRAN % 93.2 % (50.0-68.0); HEMOGLOBIN 10.3 g/dL (14.0-18.0); LYMPH # 0.6 (1.2-3.4); LYMPH % 3.1 % (22.0-35.0); MEAN CELL VOLUME 89.2 fl (80.0-105.0); MEAN CORPUSCULAR HEMOGLOBIN 29.3 pg (25.0-35.0); MEAN CORPUSCULAR HGB CONC 32.8 g/dl (31.0-37.0); MEAN PLATELET VOLUME 9.6 fl (7.0-11.0); MONO # 0.8 (0.1-0.6); MONO % 3.7 % (1.0-6.0); RBC 3.52 10^6/uL (3.5-6.1); RED CELL DISTRIBUTION WIDTH 15.5 % (11.5-14.5); WHITE BLOOD COUNT 20.1 10^3/ul (4.5-11.0)
[2017-11-23 07:06] LABS: ALB/GLOB RATIO 0.8 (1.1-1.8); ALBUMIN 2.7 g/dL (3.0-4.8); ALT/SGPT 60 U/L (7-56); AST/SGOT 54 U/L (17-59); BLOOD UREA NITROGEN 29 mg/dL (7-21); GFR AFRICAN-AMERICAN > 60; GFR NON-AFRICAN AMERICAN > 60
[2017-11-23] MEDS: Budesonide 0.5 mg/2 ml Inhal Susp UD IH SCH (07:30)
[2017-11-23] MEDS: Arformoterol 15 mcg/2 ml Inh Sol IH SCH (07:31)
[2017-11-23] MEDS: Tolvaptan 15 MG TAB PO SCH (10:06)
[2017-11-23] MEDS: MethylPREDNISolone 40 mg Vial IVP SCH ×2 (10:08→21:50)
[2017-11-23] MEDS: Levothyroxine 100 mcg (0.1 mg) Inj IVP SCH (10:08)
[2017-11-23] MEDS: Silver Sulfadiazine 1% Cream (25 gm) TP SCH ×2 (10:15→17:53)
[2017-11-23] MEDS: Lidocaine 5% Oint(35 gm) TOP SCH ×2 (10:15→17:53)
[2017-11-23] MEDS: Azithromycin 500MG/NS 250ml 500 MG/250 ML BAG IVPB SCH (10:16)
--- NOTE | 2017-11-23 10:34 | CP.PCM.PN ---
Subjective - Date & Time of Evaluation Date of Evaluation: 11/23/17 Time of Evaluation: 08:25 - Subjective Subjective: Patient is starting to feel better, no fevers, less cough, no chest pain currently. Objective - Vital Signs/Intake and Output Vital Signs (last 24 hours): Temp Pulse Resp BP Pulse Ox 98.7 F 92 H 20 151/76 H 98 11/23/17 06:00 11/23/17 06:00 11/23/17 06:00 11/23/17 06:00 11/23/17 06:00 Intake and Output: 11/22/17 11/23/17 18:59 06:59 Intake Total 950 450 Output Total 1850 800 Balance -900 -350 - Medications Medications: Current Medications Acetaminophen (Tylenol 650mg/20.3ml Solution Ud) 650 mg PEG Q4H PRN PRN Reason: Pain, Mild (1-3) Acetaminophen (Tylenol 650mg/20.3ml Solution Ud) 640 mg GT Q4 PRN PRN Reason: Fever >100.4 F Albuterol/Ipratropium (Duoneb 3 Mg/0.5 Mg (3 Ml) Ud) 3 ml IH Q3H PRN PRN Reason: Shortness of Breath Arformoterol Tartrate (Brovana) 15 mcg IH [id number] [facility] Last Admin: 11/22/17 21:45 Dose: 15 mcg Aspirin (Ecotrin) 81 mg PO DAILY [facility] Last Admin: 11/22/17 09:31 Dose: 81 mg Budesonide (Pulmicort Respules) 0.5 mg IH [id number] [facility] Last Admin: 11/22/17 21:45 Dose: 0.5 mg Clopidogrel Bisulfate (Plavix) 75 mg PO DAILY [facility] Last Admin: 11/22/17 09:31 Dose: 75 mg Gabapentin (Neurontin) 300 mg PO BID [facility] Last Admin: 11/22/17 17:49 Dose: 300 mg Vancomycin HCl (Vancomycin 1gm) 1 gm in 250 mls @ 167 mls/hr IVPB Q12H [facility] PRN Reason: Protocol Last Admin: 11/23/17 05:32 Dose: 167 mls/hr Azithromycin (Zithromax 500mg In Ns) 500 mg in 250 mls @ 167 mls/hr IVPB DAILY [facility] PRN Reason: Protocol Last Admin: 11/22/17 09:30 Dose: 167 mls/hr Meropenem (Merrem Iv 1 Gm Premix) 50 mls @ 100 mls/hr IVPB Q8 [facility] PRN Reason: Protocol Stop: 11/29/17 06:31 Last Admin: 11/23/17 05:31 Dose: 100 mls/hr Levothyroxine Sodium (Synthroid) 50 mcg IVP DAILY [facility] Last Admin: 11/22/17 09:40 Dose: 50 mcg Lidocaine (Lidocaine 5%) 0 gm TOP BID [facility] Last Admin: 11/22/17 17:54 Dose: 1 applic Methylprednisolone (Solu-Medrol) 30 mg IVP Q12 [facility] Last Admin: 11/22/17 20:59 Dose: 30 mg Metoprolol Tartrate (Lopressor) 25 mg PO BRKDIN [facility] Last Admin: 11/22/17 17:49 Dose: 25 mg Morphine Sulfate (Morphine) 2 mg IVP Q4H PRN PRN Reason: Pain, severe (8-10) Last Admin: 11/23/17 04:35 Dose: 2 mg Non-Formulary Medication (Amitiza) 24 mg PEG BID [facility] Last Admin: 11/22/17 17:37 Dose: Not Given Oxycodone HCl (Oxycodone Immediate Release Tab) 5 mg PO Q6H PRN PRN Reason: Pain, moderate (4-7) Last Admin: 11/22/17 09:31 Dose: 5 mg Pantoprazole Sodium (Protonix Susp) 40 mg PO 0600 [facility] Last Admin: 11/23/17 05:31 Dose: 40 mg Silver Sulfadiazine (Silvadene 1% 25 Gm) 0 gm TP BID [facility] Last Admin: 11/22/17 17:54 Dose: 25 gm Tolvaptan (Samsca) 15 mg PO DAILY [facility] Stop: 11/23/17 21:20 Last Admin: 11/22/17 09:48 Dose: 15 mg - Labs Labs: 11/22/17 06:05 11/22/17 06:05 PT 13.6 SECONDS (9.4-12.5) H 11/21/17 17:28 INR 1.19 (0.93-1.08) H 11/21/17 17:28 APTT 29.9 Seconds (25.1-36.5) 11/21/17 17:28 - Constitutional Appears: Cachectic, Chronically Ill - Head Exam Head Exam: NORMAL INSPECTION - ENT Exam ENT Exam: Mucous Membranes Moist - Neck Exam Neck Exam: absent: Meningismus - Respiratory Exam Respiratory Exam: Decreased Breath Sounds Additional comments: left chest, neck and shoulder area with healed area of skin - Cardiovascular Exam Cardiovascular Exam: +S1, +S2 - GI/Abdominal Exam GI & Abdominal Exam: Soft. 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
[2017-11-23] MEDS: AMITIZA 24 MG PEG SCH ×2 (10:43→17:44)
[2017-11-23] MEDS ORDERED: Barium Sulfate for Susp 96% w/w 176g Bottle PR ONE (12:00)
--- NOTE | 2017-11-23 13:13 | RAD ---
Modified barium video swallow History of dysphagia Comments. Fluoroscopy was provided in the Radiology department. Lateral video fluoroscopy was performed of the neck as the patient swallows various consistencies of liquid and solid food combined with barium. Images were recorded and sent to the PACs system. There is no official radiologic interpretation of these exams only this documentation of providing fluoroscopy. The studies are administered and interpreted by the speech therapist Martine Randle [phone]. Impression: Fluoroscopy provided for evaluation of swallowing function
--- NOTE | 2017-11-23 13:36 | CP.PCM.CON ---
Past Patient History - Infectious Disease Hx of Infectious Diseases: None - Past Social History Smoking Status: Never Smoked - CARDIAC Hx Cardiac Disorders: Yes Hx Hypertension: Yes - PULMONARY Hx Chronic Obstructive Pulmonary Disease (COPD): Yes - NEUROLOGICAL Hx Neurological Disorder: No - HEENT Hx HEENT Problems: Yes Other/Comment: THROAT CA - RENAL Hx Chronic Kidney Disease: No - ENDOCRINE/METABOLIC Hx Endocrine Disorders: No - HEMATOLOGICAL/ONCOLOGICAL Hx Cancer: Yes (throat) - INTEGUMENTARY Hx Dermatological Problems: No - MUSCULOSKELETAL/RHEUMATOLOGICAL Hx Falls: No - GASTROINTESTINAL Hx Gastrointestinal Disorders: Yes (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 Larynectomy. Bronoscopy. Right Shldr rotator cuff repair. Deviated septum repair - ANESTHESIA Hx Anesthesia: Yes Meds Allergies/Adverse Reactions: Allergies Allergy/AdvReac Type Severity Reaction Status Date / Time No Known Allergies Allergy Verified 11/21/17 17:12 - Medications Medications: Current Medications Acetaminophen (Tylenol 650mg/20.3ml Solution Ud) 650 mg PEG Q4H PRN PRN Reason: Pain, Mild (1-3) Acetaminophen (Tylenol 650mg/20.3ml Solution Ud) 640 mg GT Q4 PRN PRN Reason: Fever >100.4 F Albuterol/Ipratropium (Duoneb 3 Mg/0.5 Mg (3 Ml) Ud) 3 ml IH Q3H PRN PRN Reason: Shortness of Breath Arformoterol Tartrate (Brovana) 15 mcg IH [id number] [facility] Last Admin: 11/23/17 07:31 Dose: 15 mcg Aspirin (Ecotrin) 81 mg PO DAILY [facility] Last Admin: 11/23/17 10:14 Dose: 81 mg Budesonide (Pulmicort Respules) 0.5 mg IH [id number] [facility] Last Admin: 11/23/17 07:30 Dose: 0.5 mg Clopidogrel Bisulfate (Plavix) 75 mg PO DAILY [facility] Last Admin: 11/23/17 10:13 Dose: 75 mg Gabapentin (Neurontin) 300 mg PO BID [facility] Last Admin: 11/23/17 10:13 Dose: 300 mg Vancomycin HCl (Vancomycin 1gm) 1 gm in 250 mls @ 167 mls/hr IVPB Q12H [facility] PRN Reason: Protocol Last Admin: 11/23/17 05:32 Dose: 167 mls/hr Azithromycin (Zithromax 500mg In Ns) 500 mg in 250 mls @ 167 mls/hr IVPB DAILY [facility] PRN Reason: Protocol Last Admin: 11/23/17 10:16 Dose: 167 mls/hr Meropenem (Merrem Iv 1 Gm Premix) 50 mls @ 100 mls/hr IVPB Q8 [facility] PRN Reason: Protocol Stop: 11/29/17 06:31 Last Admin: 11/23/17 05:31 Dose: 100 mls/hr Levothyroxine Sodium (Synthroid) 50 mcg IVP DAILY [facility] Last Admin: 11/23/17 10:08 Dose: 50 mcg Lidocaine (Lidocaine 5%) 0 gm TOP BID [facility] Last Admin: 11/23/17 10:15 Dose: 1 applic Methylprednisolone (Solu-Medrol) 30 mg IVP Q12 [facility] Last Admin: 11/23/17 10:08 Dose: 30 mg Metoprolol Tartrate (Lopressor) 25 mg PO BRKDIN [facility] Last Admin: 11/23/17 08:19 Dose: 25 mg Morphine Sulfate (Morphine) 2 mg IVP Q4H PRN PRN Reason: Pain, severe (8-10) Last Admin: 11/23/17 10:28 Dose: 2 mg Non-Formulary Medication (Amitiza) 24 mg PEG BID [facility] Oxycodone HCl (Oxycodone Immediate Release Tab) 5 mg PO Q6H PRN PRN Reason: Pain, moderate (4-7) Last Admin: 11/22/17 09:31 Dose: 5 mg Pantoprazole Sodium (Protonix Susp) 40 mg PO 0600 [facility] Last Admin: 11/23/17 05:31 Dose: 40 mg Silver Sulfadiazine (Silvadene 1% 25 Gm) 0 gm TP BID [facility] Last Admin: 11/23/17 10:15 Dose: 25 gm Tolvaptan (Samsca) 15 mg PO DAILY [facility] Stop: 11/23/17 21:20 Last Admin: 11/23/17 10:06 Dose: 15 mg Results - Vital Signs Recent Vital Signs: Last Vital Signs Temp 98.8 F 11/23/17 11:54 Pulse 69 11/23/17 11:54 Resp 16 11/23/17 11:54 BP 145/80 11/23/17 11:54 Pulse Ox 98 11/23/17 06:00 - Labs Result Diagrams: 11/23/17 06:00 11/23/17 06:00 Labs: Laboratory Results - last 24 hr 11/22/17 11/22/17 11/23/17 12:30 12:30 06:00 WBC 20.1 H D RBC 3.52 Hgb 10.3 L Hct 31.4 L MCV 89.2 MCH 29.3 MCHC 32.8 RDW 15.5 H Plt Count 392 MPV 9.6 Gran % 93.2 H Lymph % (Auto) 3.1 L [place] % (Auto) 3.7 Eos % (Auto) 0.0 L Baso % (Auto) 0.0 Gran # 18.74 H Lymph # (Auto) 0.6 L [place] # (Auto) 0.8 H Eos # (Auto) 0.0 Baso # (Auto) 0.00 Sodium Potassium Chloride Carbon Dioxide Anion Gap BUN Creatinine Est GFR ( Amer) Est GFR (Non-Af Amer) Random Glucose Calcium Total Bilirubin AST ALT Alkaline Phosphatase Total Protein Albumin Globulin Albumin/Globulin Ratio Urine Color Yellow Urine Appearance Clear Urine pH 6.5 Ur Specific [place] 1.015 Urine Protein Trace H Urine Glucose (UA) 100 H Urine Ketones Negative Urine Blood Negative Urine Nitrate Negative Urine Bilirubin Negative Urine Urobilinogen 0.2 Ur Leukocyte Esterase Negative Urine RBC 1 - 3 Urine WBC Negative Ur L.pneumophila Ag Negative 11/23/17 06:00 WBC RBC Hgb Hct MCV MCH MCHC RDW Plt Count MPV Gran % Lymph % (Auto) [place] % (Auto) Eos % (Auto) Baso % (Auto) Gran # Lymph # (Auto) [place] # (Auto) Eos # (Auto) Baso # (Auto) Sodium 145 Potassium 3.9 Chloride 106 Carbon Dioxide 30 Anion Gap 13 BUN 29 H Creatinine 0.6 L Est GFR ( Amer) > 60 Est GFR (Non-Af Amer) > 60 Random Glucose 163 H Calcium 9.0 Total Bilirubin 0.3 AST 54 ALT 60 H Alkaline Phosphatase 82 Total Protein 5.9 Albumin 2.7 L Globulin 3.2 Albumin/Globulin Ratio 0.8 L Urine Color Urine Appearance Urine pH Ur Specific [place] Urine Protein Urine Glucose (UA) Urine Ketones Urine Blood Urine Nitrate Urine Bilirubin Urine Urobilinogen Ur Leukocyte Esterase Urine RBC Urine WBC Ur L.pneumophila Ag
--- NOTE | 2017-11-23 14:19 | PN ---
DATE: 11/23/2017 NEUROLOGY FOLLOWUP CHIEF COMPLAINT: Followup for left neck and shoulder neuropathic pain. SUBJECTIVE: The patient is doing much better. He has less pain with increasing gabapentin to 400 mg p.o. b.i.d. and also lidocaine cream. No acute events overnight. PAST MEDICAL HISTORY: History of stage IV laryngeal carcinoma extending to the thyroid and cricoid cartilage, status post radiation, status post Erbitux therapy; history of percutaneous endoscopic gastrostomy for tube feeds; hypertensive coronary artery disease, status post radiation; history of CABG; history of radiation dermatitis; history of methicillin-resistant Staphylococcus aureus cellulitis. ALLERIGES: NO KNOWN DRUG ALLERGIES. FAMILY HISTORY: Noncontributory. SOCIAL HISTORY: No illicit drug use, smoking, or EtOH abuse at this time. REVIEW OF SYSTEMS: A 14-point review of systems is negative except in the HPI. PHYSICAL EXAMINATION: VITAL SIGNS: Temperature 98.8, pulse rate 69, blood pressure , respiratory rate 16. GENERAL: The patient is sitting up in bed, in no acute distress. HEENT: Head is atraumatic and normocephalic. PERRLA. Extraocular muscles are intact. LUNGS: Decreased breath sounds bilaterally, scattered rhonchi. HEART: S1 and S2. Normal rate and rhythm. No murmurs, rubs, or gallops. ABDOMEN: Soft, nontender, and nondistended. Bowel sounds are present. EXTREMITIES: No clubbing. No cyanosis. Peripheral pulses 2+ felt bilaterally. NEUROLOGIC: The patient is alert and oriented to person, place, month, and year. Recall after 5 minutes is 0/3. Poor attention span. Slow thought process. Cranial nerves II through XII intact. Motor exam: Moves all extremities equally. Slightly increased tone throughout. . Sensory exam: Decreased light touch and pinprick at the calves bilaterally. Decreased vibration at the toes. DTRs are 2+ throughout, 1 at both knees and ankles. Coordination: [id number] intact. No dysmetria noted. Gait is deferred for now. ASSESSMENT: This is an 87-year-old man with past medical history of stage IV laryngeal carcinoma extending involving the thyroid and cricoid cartilage, status post radiation and Erbitux therapy; status post percutaneous endoscopic gastrostomy for tube feeds; hypertension; coronary artery disease, status post coronary artery bypass graft; history of radiation dermatitis; methicillin-resistant Staphylococcus aureus cellulitis; came in for worsening shortness of breath, tachypnea and poor appetite, found to have some underlying pneumonia for which he is being treated for. I was consulted for neuralgia pain in the left part of his neck in the dermatomal distribution, was initially on low-dose gabapentin, now gabapentin to 400 mg p.o. b.i.d. in addition to 5% lidocaine cream. His pain is much better today. At this time, continue gabapentin 400 mg p.o. b.i.d. and lidocaine cream 5% for neuropathic relief and if he need more pain coverage, then consider Cymbalta later in the future of 30 mg p.o. at bedtime. At this time, continue his antibiotic treatment for his underlying pneumonia and sepsis. Monitor electrolytes and correct accordingly. Continue current present medical management. Thank you for this followup. Melvin Lockett MD
--- NOTE | 2017-11-23 14:48 | CP.PCM.PN ---
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 Patient seen and examined at bedside. Speech remains at baseline today. Pain not as well controlled with Gabapentin and Lidocaine topical gel. Tolerating peg feeds well, no reports of emesis. Denies chest pain, shortness of breath, nausea, diarrhea, emesis, hemoptysis, diarrhea, melena. Reports ambulating well with PT. Objective - Vital Signs/Intake and Output Vital Signs (last 24 hours): Temp Pulse Resp BP Pulse Ox 98.8 F 69 16 145/80 98 11/23/17 11:54 11/23/17 11:54 11/23/17 11:54 11/23/17 11:54 11/23/17 06:00 Intake and Output: 11/23/17 11/23/17 06:59 18:59 Intake Total 450 0 Output Total 800 600 Balance -350 -600 - Medications Medications: Current Medications Acetaminophen (Tylenol 650mg/20.3ml Solution Ud) 650 mg PEG Q4H PRN PRN Reason: Pain, Mild (1-3) Acetaminophen (Tylenol 650mg/20.3ml Solution Ud) 640 mg GT Q4 PRN PRN Reason: Fever >100.4 F Albuterol/Ipratropium (Duoneb 3 Mg/0.5 Mg (3 Ml) Ud) 3 ml IH Q3H PRN PRN Reason: Shortness of Breath Arformoterol Tartrate (Brovana) 15 mcg IH [id number] [facility] Last Admin: 11/23/17 07:31 Dose: 15 mcg Aspirin (Ecotrin) 81 mg PO DAILY [facility] Last Admin: 11/23/17 10:14 Dose: 81 mg Budesonide (Pulmicort Respules) 0.5 mg IH [id number] [facility] Last Admin: 11/23/17 07:30 Dose: 0.5 mg Clopidogrel Bisulfate (Plavix) 75 mg PO DAILY [facility] Last Admin: 11/23/17 10:13 Dose: 75 mg Gabapentin (Neurontin) 300 mg PO BID [facility] Last Admin: 11/23/17 10:13 Dose: 300 mg Vancomycin HCl (Vancomycin 1gm) 1 gm in 250 mls @ 167 mls/hr IVPB Q12H [facility] PRN Reason: Protocol Last Admin: 11/23/17 05:32 Dose: 167 mls/hr Azithromycin (Zithromax 500mg In Ns) 500 mg in 250 mls @ 167 mls/hr IVPB DAILY [facility] PRN Reason: Protocol Last Admin: 11/23/17 10:16 Dose: 167 mls/hr Meropenem (Merrem Iv 1 Gm Premix) 50 mls @ 100 mls/hr IVPB Q8 [facility] PRN Reason: Protocol Stop: 11/29/17 06:31 Last Admin: 11/23/17 13:48 Dose: 100 mls/hr Levothyroxine Sodium (Synthroid) 50 mcg IVP DAILY [facility] Last Admin: 11/23/17 10:08 Dose: 50 mcg Lidocaine (Lidocaine 5%) 0 gm TOP BID [facility] Last Admin: 11/23/17 10:15 Dose: 1 applic Methylprednisolone (Solu-Medrol) 30 mg IVP Q12 [facility] Last Admin: 11/23/17 10:08 Dose: 30 mg Metoprolol Tartrate (Lopressor) 25 mg PO BRKDIN [facility] Last Admin: 11/23/17 08:19 Dose: 25 mg Morphine Sulfate (Morphine) 2 mg IVP Q4H PRN PRN Reason: Pain, severe (8-10) Last Admin: 11/23/17 10:28 Dose: 2 mg Non-Formulary Medication (Amitiza) 24 mg PEG BID [facility] Oxycodone HCl (Oxycodone Immediate Release Tab) 5 mg PO Q6H PRN PRN Reason: Pain, moderate (4-7) Last Admin: 11/22/17 09:31 Dose: 5 mg Pantoprazole Sodium (Protonix Susp) 40 mg PO 0600 [facility] Last Admin: 11/23/17 05:31 Dose: 40 mg Silver Sulfadiazine (Silvadene 1% 25 Gm) 0 gm TP BID [facility] Last Admin: 11/23/17 10:15 Dose: 25 gm Tolvaptan (Samsca) 15 mg PO DAILY [facility] Stop: 11/23/17 21:20 Last Admin: 11/23/17 10:06 Dose: 15 mg - Labs Labs: 11/23/17 06:00 11/23/17 06:00 PT 13.6 SECONDS (9.4-12.5) H 11/21/17 17:28 INR 1.19 (0.93-1.08) H 11/21/17 17:28 APTT 29.9 Seconds (25.1-36.5) 11/21/17 17:28 - Additional Findings Additional findings: - Constitutional Appears: Non-toxic, No Acute Distress, Cachectic (very cachetic, can see sternotomy wires from CABG pushing up through skin at sterum), Chronically Ill - Head Exam Head Exam: ATRAUMATIC, NORMAL INSPECTION, NORMOCEPHALIC - Eye Exam Eye Exam: EOMI, Normal appearance. absent: Conjunctival injection, Scleral icterus Pupil Exam: absent: Irregular, Unequal - ENT Exam ENT Exam: Mucous Membranes Dry Additional comments: Hoarse speech No petechiae or active bleeding sources identified No exudates or candidiasis appreciated - Neck Exam Neck exam: Positive for: Full Rom - Respiratory Exam Respiratory Exam: NORMAL BREATHING PATTERN. absent: Accessory Muscle Use, Rales , Rhonchi, Wheezes - Cardiovascular Exam Cardiovascular Exam: REGULAR RHYTHM, RRR, +S1, +S2. absent: Bradycardia, Tachycardia, Irregular Rhythm, +S4 - GI/Abdominal Exam GI & Abdominal Exam: Normal Bowel Sounds, Soft. absent: Diminished Bowel Sounds , Distended, Firm, Hyperactive Bowel Sounds, Hypoactive Bowel Sounds, Rigid, Tenderness - Extremities Exam Extremities exam: Positive for: pedal pulses present. Negative for: calf tenderness, pedal edema, tenderness Additional comments: mildly waxy-like skin at bilateral LE from extending from feet to ankles distal LE warm to palpation - Neurological Exam Neurological exam: Alert, Oriented x3 Additional comments: following all commands appropriately, moving all extremities spontaneously motor appears grossly intact and equal bilaterally - Psychiatric Exam Psychiatric exam: Normal Affect, Normal Mood - Skin Skin Exam: Dry, Intact, Normal Color, Warm (Except as listed below) Additional comments: Sternotomy wires visualized pushing up skin at sternum, right chest port easily visualized through skin, but neither with breakdown or breakthrough of skin Discoloration at site of previous left arm/shoulder at site of prior cellulitis , improved over appearance at discharge, still some electrical shooting pains at site Assessment and Plan - Assessment and Plan (Free Text) Assessment: This is an 87 yo M with PMH of stage LAOL 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 - stable Right lower lobe lung infiltrate, likely PNA Neuropathic pain at prior cellulitis site, possible residual pain from herpetic rxn -CXR on admit suspicious for right lower lobe infiltrate, concerning for HCAP vs aspiration pneumonia, CT chest notable for RLL consolidation consistent with pneumonia, longstanding upper lobe fibrosis, and dilated pulm arteries consistent with pulm HTN -ID following, appreciate their recs; Vanco, Zithromax, and Merrem; pending cx results (blood, urine, sputum) and urine legionella antigen; procal 0.39 -Continue ASA and Plavix given hx of CAD s/p CABG, continue Lipitor -continue metolazone, Metoprolol -Continue Protonix for GI ppx -Head Counselor consulted for tube feeding until swallow study passed; continue continuous feeds at 40cc/hr -Echo obtained during last admission notable for EF 63%, mild aortic sclerosis, otherwise unremarkable -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 at last admission, Na 145 today (was 135), holding tolvaptam today and rechecking sodium to confirm elevation -Nephro following, appreciate all recs; start protein supplementation with PEG feeds given albumin 2.7, no need for IVF at this time -Speech therapist consulted, appreciate their recs -Neuro consulted for neuropathic pain, appreciate all recs; Gabapentin increased to 400mg BID, lidocaine ointment, and will add cymbalta if no improvement on current regimen -Hgb 10.3, baseline 9's-10's as per prior charting; avoid ESAs in laryngeal ca, no indication for transfusion at this time -Given patient's condition and repeat hospitalizations, he will need some degree of termite treater helper care, he is not safe to be discharged home as he lives alone with insufficient home support; currently, pending placement at [facility] for AYAD, then to move in with son in 1 month with addition of care staff to provided 24hr care Patient reviewed and discussed at length with attending, Dr. Smith.
--- NOTE | 2017-11-23 16:01 | CP.PCM.CON ---
History of Present Illness - History of Present Illness History of Present Illness: Pt is an 87 y/o male recently [place] [facility] Pt had shortness of breath and was readmitted [place] [facility] Pt has significant hx of CTX;/XRT for SSCA larynx. Pt has chronic dysphagia aspiration /PEG. Denies pain at this time. Just finished barrium swallow. Review of Systems - Constitutional Constitutional: As Per HPI - EENT Eyes: As Per HPI Ears: As Per HPI Nose/Mouth/Throat: As Per HPI - Cardiovascular Cardiovascular: As Per HPI - Respiratory Respiratory: As Per HPI - Genitourinary Genitourinary: As Per HPI - Reproductive: Male Reproductive:Male: As Per HPI - Musculoskeletal Musculoskeletal: As Per HPI - Integumentary Integumentary: As Per HPI Past Patient History - Infectious Disease Hx of Infectious Diseases: None - Past Social History Smoking Status: Never Smoked - CARDIAC Hx Cardiac Disorders: Yes Hx Hypertension: Yes - PULMONARY Hx Chronic Obstructive Pulmonary Disease (COPD): Yes - NEUROLOGICAL Hx Neurological Disorder: No - HEENT Hx HEENT Problems: Yes Other/Comment: THROAT CA - RENAL Hx Chronic Kidney Disease: No - ENDOCRINE/METABOLIC Hx Endocrine Disorders: No - HEMATOLOGICAL/ONCOLOGICAL Hx Cancer: Yes (laryngeal, etending to cricoid/thyroid cartilage) - INTEGUMENTARY Hx Dermatological Problems: No - MUSCULOSKELETAL/RHEUMATOLOGICAL Hx Falls: No - GASTROINTESTINAL Hx Gastrointestinal Disorders: Yes (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 Larynectomy. Bronoscopy. Right Shldr rotator cuff repair. Deviated septum repair - ANESTHESIA Hx Anesthesia: Yes Meds Allergies/Adverse Reactions: Allergies Allergy/AdvReac Type Severity Reaction Status Date / Time No Known Allergies Allergy Verified 11/21/17 17:12 - Medications Medications: Current Medications Acetaminophen (Tylenol 650mg/20.3ml Solution Ud) 650 mg PEG Q4H PRN PRN Reason: Pain, Mild (1-3) Acetaminophen (Tylenol 650mg/20.3ml Solution Ud) 640 mg GT Q4 PRN PRN Reason: Fever >100.4 F Albuterol/Ipratropium (Duoneb 3 Mg/0.5 Mg (3 Ml) Ud) 3 ml IH Q3H PRN PRN Reason: Shortness of Breath Arformoterol Tartrate (Brovana) 15 mcg IH [id number] [facility] Last Admin: 11/23/17 07:31 Dose: 15 mcg Aspirin (Ecotrin) 81 mg PO DAILY [facility] Last Admin: 11/23/17 10:14 Dose: 81 mg Budesonide (Pulmicort Respules) 0.5 mg IH [id number] [facility] Last Admin: 11/23/17 07:30 Dose: 0.5 mg Clopidogrel Bisulfate (Plavix) 75 mg PO DAILY [facility] Last Admin: 11/23/17 10:13 Dose: 75 mg Gabapentin (Neurontin) 400 mg PO BID [facility] Vancomycin HCl (Vancomycin 1gm) 1 gm in 250 mls @ 167 mls/hr IVPB Q12H [facility] PRN Reason: Protocol Last Admin: 11/23/17 05:32 Dose: 167 mls/hr Azithromycin (Zithromax 500mg In Ns) 500 mg in 250 mls @ 167 mls/hr IVPB DAILY [facility] PRN Reason: Protocol Last Admin: 11/23/17 10:16 Dose: 167 mls/hr Meropenem (Merrem Iv 1 Gm Premix) 50 mls @ 100 mls/hr IVPB Q8 [facility] PRN Reason: Protocol Stop: 11/29/17 06:31 Last Admin: 11/23/17 13:48 Dose: 100 mls/hr Levothyroxine Sodium (Synthroid) 50 mcg IVP DAILY [facility] Last Admin: 11/23/17 10:08 Dose: 50 mcg Lidocaine (Lidocaine 5%) 0 gm TOP BID [facility] Last Admin: 11/23/17 10:15 Dose: 1 applic Methylprednisolone (Solu-Medrol) 30 mg IVP Q12 [facility] Last Admin: 11/23/17 10:08 Dose: 30 mg Metoprolol Tartrate (Lopressor) 25 mg PO BRKDIN [facility] Last Admin: 11/23/17 08:19 Dose: 25 mg Morphine Sulfate (Morphine) 2 mg IVP Q4H PRN PRN Reason: Pain, severe (8-10) Last Admin: 11/23/17 10:28 Dose: 2 mg Non-Formulary Medication (Amitiza) 24 mg PEG BID [facility] Oxycodone HCl (Oxycodone Immediate Release Tab) 5 mg PO Q6H PRN PRN Reason: Pain, moderate (4-7) Last Admin: 11/22/17 09:31 Dose: 5 mg Pantoprazole Sodium (Protonix Susp) 40 mg PO 0600 [facility] Last Admin: 11/23/17 05:31 Dose: 40 mg Saliva Substitute (Saliva Substitute) 0 ml PO Q2 [facility] Silver Sulfadiazine (Silvadene 1% 25 Gm) 0 gm TP BID [facility] Last Admin: 11/23/17 10:15 Dose: 25 gm Tolvaptan (Samsca) 15 mg PO DAILY [facility] Stop: 11/23/17 21:20 Last Admin: 11/23/17 10:06 Dose: 15 mg Physical Exam - Constitutional Appears: Well, Non-toxic, Cachectic, Chronically Ill - Head Exam Head Exam: ATRAUMATIC, NORMAL INSPECTION, NORMOCEPHALIC - Eye Exam Eye Exam: EOMI, Normal appearance Pupil Exam: NORMAL ACCOMODATION - ENT Exam ENT Exam: Mucous Membranes Dry, Normal Exam, Normal External Ear Exam Additional comments: Patient has oral thrush with dry mucosa Procedure flexilble laryngoscopy performed: To further eval the larynx fiber exam was indicated. Mirror not able to be performed. Scope was inserted in the left nares to the supraglottic region. Findings Supraglottis: dry mucosa with white plaque fungus-post radiation changes Glottic : minimal movement of vocal cords, with white plaque and radiation changes hypopharynx;white plaque and dry mucosa no sign of recurrentl lesions airway patent. Results - Vital Signs Recent Vital Signs: Last Vital Signs Temp 98.8 F 11/23/17 11:54 Pulse 69 11/23/17 11:54 Resp 16 11/23/17 11:54 BP 145/80 11/23/17 11:54 Pulse Ox 98 11/23/17 06:00 - Labs Result Diagrams: 11/23/17 06:00 11/23/17 06:00 Labs: Laboratory Results - last 24 hr 11/22/17 11/23/17 11/23/17 12:30 06:00 06:00 WBC 20.1 H D RBC 3.52 Hgb 10.3 L Hct 31.4 L MCV 89.2 MCH 29.3 MCHC 32.8 RDW 15.5 H Plt Count 392 MPV 9.6 Gran % 93.2 H Lymph % (Auto) 3.1 L [place] % (Auto) 3.7 Eos % (Auto) 0.0 L Baso % (Auto) 0.0 Gran # 18.74 H Lymph # (Auto) 0.6 L [place] # (Auto) 0.8 H Eos # (Auto) 0.0 Baso # (Auto) 0.00 Sodium 145 Potassium 3.9 Chloride 106 Carbon Dioxide 30 Anion Gap 13 BUN 29 H Creatinine 0.6 L Est GFR ( Amer) > 60 Est GFR (Non-Af Amer) > 60 Random Glucose 163 H Calcium 9.0 Total Bilirubin 0.3 AST 54 ALT 60 H Alkaline Phosphatase 82 Total Protein 5.9 Albumin 2.7 L Globulin 3.2 Albumin/Globulin Ratio 0.8 L Ur L.pneumophila Ag Negative Assessment & Plan (1) COPD (chronic obstructive pulmonary disease) Status: Acute (2) Dehydration Status: Acute (3) Pneumonia Status: Acute (4) Coronary arteriosclerosis Status: Acute (5) Coronary artery disease Status: Acute (6) Hyponatremia Status: Acute Priority: High (7) Laryngeal cancer Status: Chronic Priority: High (8) Cellulitis Status: Resolved Priority: High (9) Other voice and resonance disorders Status: Acute (10) Oropharyngeal dysphagia Status: Acute (11) Oral thrush Status: Acute - Assessment and Plan (Free Text) Plan: treatment of thrush, cont NPO, monitor frequency patient is obtaining aspiration pneumonia - Date & Time Date: 11/23/17 Time: 16:01
--- NOTE | 2017-11-23 17:39 | CP.PCM.PN ---
<Cristela Liu - Last Filed: 11/23/17 17:38> Subjective - Date & Time of Evaluation Date of Evaluation: 11/23/17 Time of Evaluation: 10:00 - Subjective Subjective: Seen and examined at the bedside earlier today, chart review. Tolerating Jevity feedings at 40 cc an hour, no reports of residuals. Patient patient reports no bowel movement as of yet. Denies shortness of breath or chest pain. Patient was seen by speech therapist recommend modified some barium swallow. Objective - Vital Signs/Intake and Output Vital Signs (last 24 hours): Temp Pulse Resp BP Pulse Ox 98.8 F 95 H 16 145/80 98 11/23/17 11:54 11/23/17 13:00 11/23/17 11:54 11/23/17 11:54 11/23/17 06:00 Intake and Output: 11/23/17 11/23/17 06:59 18:59 Intake Total 450 0 Output Total 800 600 Balance -350 -600 - Medications Medications: Current Medications Acetaminophen (Tylenol 650mg/20.3ml Solution Ud) 650 mg PEG Q4H PRN PRN Reason: Pain, Mild (1-3) Acetaminophen (Tylenol 650mg/20.3ml Solution Ud) 640 mg GT Q4 PRN PRN Reason: Fever >100.4 F Albuterol/Ipratropium (Duoneb 3 Mg/0.5 Mg (3 Ml) Ud) 3 ml IH Q3H PRN PRN Reason: Shortness of Breath Arformoterol Tartrate (Brovana) 15 mcg IH [id number] COUNT INCLUDES [facility] Last Admin: 11/23/17 07:31 Dose: 15 mcg Aspirin (Ecotrin) 81 mg PO DAILY [facility]CLUD[facility] Last Admin: 11/23/17 10:14 Dose: 81 mg Budesonide (Pulmicort Respules) 0.5 mg IH [id number] COUNT [facility]CLUDES [facility] Last Admin: 11/23/17 07:30 Dose: 0.5 mg Clopidogrel Bisulfate (Plavix) 75 mg PO DAILY [facility] Last Admin: 11/23/17 10:13 Dose: 75 mg Gabapentin (Neurontin) 400 mg PO BID COUNT [facility]CLUD[facility] Vancomycin HCl (Vancomycin 1gm) 1 gm in 250 mls @ 167 mls/hr IVPB Q12H SIA PRN Reason: Protocol Last Admin: 11/23/17 05:32 Dose: 167 mls/hr Azithromycin (Zithromax 500mg In Ns) 500 mg in 250 mls @ 167 mls/hr IVPB DAILY [facility] PRN Reason: Protocol Last Admin: 11/23/17 10:16 Dose: 167 mls/hr Meropenem (Merrem Iv 1 Gm Premix) 50 mls @ 100 mls/hr IVPB Q8 SIA PRN Reason: Protocol Stop: 11/29/17 06:31 Last Admin: 11/23/17 13:48 Dose: 100 mls/hr Levothyroxine Sodium (Synthroid) 50 mcg IVP DAILY [facility] Last Admin: 11/23/17 10:08 Dose: 50 mcg Lidocaine (Lidocaine 5%) 0 gm TOP BID COUNT [facility]CLUDES [facility] Last Admin: 11/23/17 10:15 Dose: 1 applic Methylprednisolone (Solu-Medrol) 30 mg IVP Q12 [facility]CLUD[facility] Last Admin: 11/23/17 10:08 Dose: 30 mg Metoprolol Tartrate (Lopressor) 25 mg PO BRKDIN COUNT [facility]CLUDES [facility] Last Admin: 11/23/17 08:19 Dose: 25 mg Morphine Sulfate (Morphine) 2 mg IVP Q4H PRN PRN Reason: Pain, severe (8-10) Last Admin: 11/23/17 10:28 Dose: 2 mg Non-Formulary Medication (Amitiza) 24 mg PEG BID COUNT [facility]CLUDES [facility] Nystatin (Nystatin Oral Susp) 5 ml PO QID COUNT [facility]CLUDES [facility] Oxycodone HCl (Oxycodone Immediate Release Tab) 5 mg PO Q6H PRN PRN Reason: Pain, moderate (4-7) Last Admin: 11/22/17 09:31 Dose: 5 mg Pantoprazole Sodium (Protonix Susp) 40 mg PO 0600 [facility] Last Admin: 11/23/17 05:31 Dose: 40 mg Saliva Substitute (Saliva Substitute) 0 ml PO Q2 COUNT INCLUDES [facility] Silver Sulfadiazine (Silvadene 1% 25 Gm) 0 gm TP BID COUNT INCLUDES [facility] Last Admin: 11/23/17 10:15 Dose: 25 gm Tolvaptan (Samsca) 15 mg PO DAILY COUNT [facility]CLUDES [facility] Stop: 11/23/17 21:20 Last Admin: 11/23/17 10:06 Dose: 15 mg - Labs Labs: 11/23/17 06:00 11/23/17 06:00 PT 13.6 SECONDS (9.4-12.5) H 11/21/17 17:28 INR 1.19 (0.93-1.08) H 11/21/17 17:28 APTT 29.9 Seconds (25.1-36.5) 11/21/17 17:28 - Constitutional Appears: No Acute Distress - Head Exam Head Exam: NORMOCEPHALIC - Eye Exam Eye Exam: Normal appearance (D). absent: Scleral icterus - ENT Exam ENT Exam: Mucous Membranes Moist - Respiratory Exam Respiratory Exam: NORMAL BREATHING PATTERN. absent: Respiratory Distress - GI/Abdominal Exam GI & Abdominal Exam: Soft, Normal Bowel Sounds. absent: Guarding, Tenderness, Rebound - Extremities Exam Extremities Exam: Pedal Edema. absent: Calf Tenderness - Neurological Exam Neurological Exam: Alert, Awake, Oriented x3 - Skin Skin Exam: Dry, Warm Assessment and Plan - Assessment and Plan (Free Text) Assessment: ASSESSMENT: Respiratory distress improved Sepsis, s/p CXR reporting right lower lobe infiltrate suspected aspiration pneumonia Laryngeal cancer, s/p radiation and chemotherapy Dysphagia secondary to above status post PEG Improved shortness of breath CAD, status post CABG Hypertension Constipation Plan: NPO Jevity 40 cc/hr check residuals On aspirin and Plavix on Protonix 40 daily On IV antibiotics on Solu-Medrol ENT eval FU Modified barium swallow As per oncology/pulmonology and ID Seen and discussed with Dr. Foreman. <Pj Foreman V - Last Filed: 11/23/17 23:58> Objective - Vital Signs/Intake and Output Vital Signs (last 24 hours): Temp Pulse Resp BP Pulse Ox 98.8 F 98 H 18 147/88 95 11/23/17 18:00 11/23/17 18:00 11/23/17 18:00 11/23/17 18:00 11/23/17 09:00 Intake and Output: 11/23/17 11/24/17 18:59 06:59 Intake Total 0 120 Output Total 600 800 Balance -600 -680 - Medications Medications: Current Medications Acetaminophen (Tylenol 650mg/20.3ml Solution Ud) 650 mg PEG Q4H PRN PRN Reason: Pain, Mild (1-3) Acetaminophen (Tylenol 650mg/20.3ml Solution Ud) 640 mg GT Q4 PRN PRN Reason: Fever >100.4 F Albuterol/Ipratropium (Duoneb 3 Mg/0.5 Mg (3 Ml) Ud) 3 ml IH Q3H PRN PRN Reason: Shortness of Breath Arformoterol Tartrate (Brovana) 15 mcg IH [id number] COUNT [facility]CLUDES [facility] Last Admin: 11/23/17 07:31 Dose: 15 mcg Aspirin (Ecotrin) 81 mg PO DAILY COUNT [facility]CLUDES [facility] Last Admin: 11/23/17 10:14 Dose: 81 mg Budesonide (Pulmicort Respules) 0.5 mg IH [id number] COUNT [facility]CLUDES [facility] Last Admin: 11/23/17 07:30 Dose: 0.5 mg Clopidogrel Bisulfate (Plavix) 75 mg PO DAILY COUNT [facility]CLUDES [facility] Last Admin: 11/23/17 10:13 Dose: 75 mg Gabapentin (Neurontin) 400 mg PO BID COUNT [facility]CLUDES [facility] Last Admin: 11/23/17 17:52 Dose: 400 mg Vancomycin HCl (Vancomycin 1gm) 1 gm in 250 mls @ 167 mls/hr IVPB Q12H SIA PRN Reason: Protocol Last Admin: 11/23/17 17:54 Dose: Not Given Azithromycin (Zithromax 500mg In Ns) 500 mg in 250 mls @ 167 mls/hr IVPB DAILY COUNT [facility]CLUDES [facility] PRN Reason: Protocol Last Admin: 11/23/17 10:16 Dose: 167 mls/hr Meropenem (Merrem Iv 1 Gm Premix) 50 mls @ 100 mls/hr IVPB Q8 COUNT [facility]CLUDES [facility] PRN Reason: Protocol Stop: 11/29/17 06:31 Last Admin: 11/23/17 21:49 Dose: 100 mls/hr Sodium Chloride (Sodium Chloride 0.45%) 1,000 mls @ 40 mls/hr IV .Q24H COUNT INCLUDES [facility] Last Admin: 11/23/17 20:59 Dose: 40 mls/hr Levothyroxine Sodium (Synthroid) 50 mcg IVP DAILY COUNT INCLUDES [facility] Last Admin: 11/23/17 10:08 Dose: 50 mcg Lidocaine (Lidocaine 5%) 0 gm TOP BID COUNT INCLUDES [facility] Last Admin: 11/23/17 17:53 Dose: 2 applic Methylprednisolone (Solu-Medrol) 20 mg IVP Q12 COUNT [facility]CLUDES [facility] Last Admin: 11/23/17 21:50 Dose: 20 mg Metoprolol Tartrate (Lopressor) 25 mg PO BRKDIN COUNT INCLUDES [facility] Last Admin: 11/23/17 17:52 Dose: 25 mg Morphine Sulfate (Morphine) 2 mg IVP Q4H PRN PRN Reason: Pain, severe (8-10) Last Admin: 11/23/17 20:19 Dose: 2 mg Non-Formulary Medication (Amitiza) 24 mg PEG BID COUNT INCLUDES [facility] Last Admin: 11/23/17 17:44 Dose: Not Given Nystatin (Nystatin Oral Susp) 5 ml PO QID COUNT INCLUDES [facility] Last Admin: 11/23/17 21:49 Dose: 5 ml Oxycodone HCl (Oxycodone Immediate Release Tab) 5 mg PO Q6H PRN PRN Reason: Pain, moderate (4-7) Last Admin: 11/22/17 09:31 Dose: 5 mg Pantoprazole Sodium (Protonix Susp) 40 mg PO 0600 COUNT INCLUDES [facility] Last Admin: 11/23/17 05:31 Dose: 40 mg Saliva Substitute (Saliva Substitute) 0 ml PO Q2 COUNT INCLUDES [facility] Last Admin: 11/23/17 21:51 Dose: 1 ml Silver Sulfadiazine (Silvadene 1% 25 Gm) 0 gm TP BID COUNT INCLUDES [facility] Last Admin: 11/23/17 17:53 Dose: 25 gm - Labs Labs: 11/23/17 06:00 11/23/17 06:00 PT 13.6 SECONDS (9.4-12.5) H 11/21/17 17:28 INR 1.19 (0.93-1.08) H 11/21/17 17:28 APTT 29.9 Seconds (25.1-36.5) 11/21/17 17:28 Attending/Attestation - Attestation I have personally seen and examined this patient.: Yes I have fully participated in the care of the patient.: Yes I have reviewed all pertinent clinical information, including history, physical exam and plan: Yes Notes (Text): This is an addendum to GI consult report dictated by Cristela Liu APN.The patient was seen and examined earlier. Medical records, lab studies, imagings were reviewed. Last 24 hours events reviewed. Agreed with the above treatment plan as outlined in Cristela Liu APN's notes with the addition of the following 11/23/17 23:57
[2017-11-23] MEDS: Nystatin 100,000 Units/ml Oral Susp 5 ml UD PO SCH ×2 (17:52→21:49)
[2017-11-23] MEDS: Saliva Substitute 44.3 ML PO SCH ×4 (17:52→21:51)
--- NOTE | 2017-11-23 20:06 | PN ---
DATE: 11/23/2017 SUBJECTIVE: The patient is seen lying in bed. He is awake, he is alert, he is comfortable. He reports feeling much better today. He still has cough. PHYSICAL EXAMINATION: GENERAL: Elderly, cachectic male, lying in bed. VITAL SIGNS: Blood pressure 147/88, heart rate 98, respiratory rate 18, temperature 98.8. HEENT: Normocephalic, atraumatic. NECK: Supple, no JVD. LUNGS: Bilateral equal air entry, bilateral equal expansion, no crackles appreciated anteriorly. CARDIAC: S1 and S2, regular rate and rhythm, no murmur, no rub. ABDOMEN: Soft, nondistended, nontender, bowel sounds present, positive PEG. EXTREMITIES: No lower extremity edema. INTAKE AND OUTPUT: 1400/2650. LABORATORY DATA: WBC 20, hemoglobin 10, hematocrit 31, platelets 392. Sodium 145, potassium 3.9, chloride 106, CO2 30, BUN 29, creatinine 0.6, glucose 163, calcium 9, total bili 0.3, AST 54, ALT 60, albumin 2.7. Urinalysis, yellow clear, pH 6.5, specific gravity 1.015, protein trace, glucose 100. Vancomycin trough level 13.7. Influenza negative. Urine culture, no growth. Blood culture, no growth so far. Modified barium swallow. ASSESSMENT: 1. Hyponatremia, resolved, currently patient is hypernatremic likely secondary to dehydration. 2. Stage IV laryngeal cancer, history of radiation. 3. Aspiration pneumonia. 4. Oropharyngeal thrush as per ENT notes. 5. Malnutrition. 6. Coronary artery disease. PLAN 1. Hold Tolvaptan. 2. Continue antibiotics as per ID recommendations. 3. Discontinue free water via PEG. 4. Increase PEG feeds to 50 mL/hour as tolerated. 5. Half-normal saline at 60 mL/hour times 24 hours. Marissa Cohen MD
[2017-11-23] MEDS: Sodium Chloride 0.45% 1,000 ML IV SCH (20:59)
[2017-11-23] MEDS: Prostat 15 g packet GT SCH (21:08)
--- NOTE | 2017-11-23 22:31 | PN ---
DATE: PULMONARY PROGRESS NOTE REFERRING PHYSICIAN: Gary Zapata MD SUBJECTIVE: Patient is lying in the bed, head at 45 degrees, had a modified barium done, report is pending, still has cough, dry mouth. No nausea. No vomiting. No diarrhea. No leg pain or leg swelling. PHYSICAL EXAMINATION: VITAL SIGNS: Temperature is 98, heart rate 90, respiratory rate is 16, blood pressure 147/88, pulse ox 98% on nasal cannula. HEENT: Dry mucous membranes. NECK: Supple. No JVD. LUNGS: Few crackles at the right base. HEART: S1 and S2. ABDOMEN: Soft, nontender. No organomegaly. EXTREMITIES: There is no edema. NEUROLOGIC: Awake, alert, follows simple commands. MEDICATIONS: He is on Amitiza 1 tablet daily, Brovana inhaled twice a day, DuoNeb every 3 hours p.r.n., Ecotrin 81 mg daily, lidocaine patch 5% to the affected area, metoprolol tartrate 25 mg twice a day, meropenem 1 g IV every 8 hours, morphine 2 mg every 4 hours p.r.n., mg twice a day, nystatin 5 mL four times a day, oxycodone immediate release 5 mg every 6 hours p.r.n., Plavix 75 mg daily, Protonix 40 mg daily, Pulmicort inhaled twice a day, saliva substitute every 2 hours p.r.n., tolvaptan 15 mg daily, Solu-Medrol 20 mg every 12 hours, Synthroid 50 mcg daily, also getting Tylenol, vancomycin 1 g IV every 12 hours, Zithromax 500 mg daily. LABORATORY DATA: Shows hemoglobin 10.3, hematocrit 31.4, WBC 20,000, platelet count is 392. Sodium 145, potassium 3.9, chloride 106, bicarbonate 30, BUN 29, creatinine 0.6, glucose 163, AST 54, ALT 60, alk phos is 82, albumin is 2.7. Microbiology: Blood culture and urine culture, there is no growth. Modified barium done, report is still pending. There is no report from speech therapy yet. IMPRESSION AND PLAN: Unresectable laryngeal carcinoma with metastatic disease, been on radiation and chemotherapy; chronic obstructive lung disease, hypertension, history of hyponatremia, status post cellulitis at the chest wall, history of Staphylococcus infection, oropharyngeal dysphagia, has G-tube, malnutrition, right lower lobe pneumonia probably secondary to aspiration. Patient admitted to drink . I had a long discussion with the patient about chances of aspiration and respiratory failure. He expressed understanding, will be n.p.o. until guided by the speech therapy. Continue antibiotics, keep head at 45 degrees, bronchodilator, gastric prophylaxis, aspiration precaution. Thank you and we will follow with you. Masoud Moyer MD
[2017-11-24] MEDS: Saliva Substitute 44.3 ML PO SCH ×11 (02:00→21:16)
[2017-11-24] MEDS: Meropenem IV 1 gm in NS 50 ML IVPB SCH ×3 (06:19→21:16)
[2017-11-24] MEDS: Pantoprazole 40 mg Susp UD PO SCH (06:19)
[2017-11-24] MEDS: Morphine 2 mg/2 mL syringe IVP PRN ×4 (06:38→22:48)
[2017-11-24 06:56] LABS: GRAN # 13.67 (1.4-6.5); HEMOGLOBIN 10.7 g/dL (14.0-18.0); MEAN CELL VOLUME 90.5 fl (80.0-105.0); MEAN CORPUSCULAR HEMOGLOBIN 29.2 pg (25.0-35.0); MEAN CORPUSCULAR HGB CONC 32.2 g/dl (31.0-37.0); MEAN PLATELET VOLUME 9.6 fl (7.0-11.0); MONO # 1.1 (0.1-0.6); RBC 3.67 10^6/uL (3.5-6.1); RED CELL DISTRIBUTION WIDTH 15.6 % (11.5-14.5); WHITE BLOOD COUNT 15.7 10^3/ul (4.5-11.0)
[2017-11-24 07:20] LABS: ALB/GLOB RATIO 0.9 (1.1-1.8); ALBUMIN 2.7 g/dL (3.0-4.8); ALT/SGPT 88 U/L (7-56); AST/SGOT 72 U/L (17-59); BLOOD UREA NITROGEN 35 mg/dL (7-21); CALCIUM 9.2 mg/dL (8.4-10.5); GFR AFRICAN-AMERICAN > 60; GFR NON-AFRICAN AMERICAN > 60
[2017-11-24] MEDS: Arformoterol 15 mcg/2 ml Inh Sol IH SCH ×2 (08:00→19:18)
[2017-11-24] MEDS: Budesonide 0.5 mg/2 ml Inhal Susp UD IH SCH ×2 (08:01→19:18)
[2017-11-24] MEDS: Levothyroxine 100 mcg (0.1 mg) Inj IVP SCH (09:52)
[2017-11-24] MEDS: Azithromycin 500MG/NS 250ml 500 MG/250 ML BAG IVPB SCH (09:52)
[2017-11-24] MEDS: Nystatin 100,000 Units/ml Oral Susp 5 ml UD PO SCH ×4 (09:52→21:17)
[2017-11-24] MEDS: MethylPREDNISolone 40 mg Vial IVP SCH ×2 (09:53→21:17)
[2017-11-24] MEDS: AMITIZA 24 MG PEG SCH ×2 (09:54→18:15)
[2017-11-24] MEDS: Prostat 15 g packet GT SCH ×2 (10:03→18:17)
[2017-11-24] MEDS: Silver Sulfadiazine 1% Cream (25 gm) TP SCH ×2 (10:26→18:17)
[2017-11-24] MEDS: Lidocaine 5% Oint(35 gm) TOP SCH ×2 (10:27→18:17)
--- NOTE | 2017-11-24 12:14 | CP.PCM.PN ---
Subjective - Date & Time of Evaluation Date of Evaluation: 11/24/17 Time of Evaluation: 10:30 - Subjective Subjective: Still with cough but breathing better, no fevers, not in distress, no nausea or diarrhea. Objective - Vital Signs/Intake and Output Vital Signs (last 24 hours): Temp Pulse Resp BP Pulse Ox 98.8 F 98 H 18 147/88 95 11/23/17 18:00 11/23/17 18:00 11/23/17 18:00 11/23/17 18:00 11/23/17 09:00 Intake and Output: 11/24/17 11/24/17 06:59 18:59 Intake Total 120 Output Total 1550 Balance -1430 - Medications Medications: Current Medications Acetaminophen (Tylenol 650mg/20.3ml Solution Ud) 650 mg PEG Q4H PRN PRN Reason: Pain, Mild (1-3) Acetaminophen (Tylenol 650mg/20.3ml Solution Ud) 640 mg GT Q4 PRN PRN Reason: Fever >100.4 F Albuterol/Ipratropium (Duoneb 3 Mg/0.5 Mg (3 Ml) Ud) 3 ml IH Q3H PRN PRN Reason: Shortness of Breath Arformoterol Tartrate (Brovana) 15 mcg IH [id number] [facility] Last Admin: 11/23/17 07:31 Dose: 15 mcg Aspirin (Ecotrin) 81 mg PO DAILY [facility] Last Admin: 11/23/17 10:14 Dose: 81 mg Budesonide (Pulmicort Respules) 0.5 mg IH [id number] [facility] Last Admin: 11/23/17 07:30 Dose: 0.5 mg Clopidogrel Bisulfate (Plavix) 75 mg PO DAILY [facility] Last Admin: 11/23/17 10:13 Dose: 75 mg Gabapentin (Neurontin) 400 mg PO BID [facility] Last Admin: 11/23/17 17:52 Dose: 400 mg Vancomycin HCl (Vancomycin 1gm) 1 gm in 250 mls @ 167 mls/hr IVPB Q12H SIA PRN Reason: Protocol Last Admin: 11/23/17 17:54 Dose: Not Given Azithromycin (Zithromax 500mg In Ns) 500 mg in 250 mls @ 167 mls/hr IVPB DAILY SIA PRN Reason: Protocol Last Admin: 11/23/17 10:16 Dose: 167 mls/hr Meropenem (Merrem Iv 1 Gm Premix) 50 mls @ 100 mls/hr IVPB Q8 [facility] PRN Reason: Protocol Stop: 11/29/17 06:31 Last Admin: 11/24/17 06:19 Dose: 100 mls/hr Sodium Chloride (Sodium Chloride 0.45%) 1,000 mls @ 40 mls/hr IV .Q24H [facility] Last Admin: 11/23/17 20:59 Dose: 40 mls/hr Levothyroxine Sodium (Synthroid) 50 mcg IVP DAILY [facility] Last Admin: 11/23/17 10:08 Dose: 50 mcg Lidocaine (Lidocaine 5%) 0 gm TOP BID [facility] Last Admin: 11/23/17 17:53 Dose: 2 applic Methylprednisolone (Solu-Medrol) 20 mg IVP Q12 [facility] Last Admin: 11/23/17 21:50 Dose: 20 mg Metoprolol Tartrate (Lopressor) 25 mg PO BRKDIN [facility] Last Admin: 11/23/17 17:52 Dose: 25 mg Morphine Sulfate (Morphine) 2 mg IVP Q4H PRN PRN Reason: Pain, severe (8-10) Last Admin: 11/24/17 06:38 Dose: 2 mg Non-Formulary Medication (Amitiza) 24 mg PEG BID [facility] Last Admin: 11/23/17 17:44 Dose: Not Given Nystatin (Nystatin Oral Susp) 5 ml PO QID [facility] Last Admin: 11/23/17 21:49 Dose: 5 ml Oxycodone HCl (Oxycodone Immediate Release Tab) 5 mg PO Q6H PRN PRN Reason: Pain, moderate (4-7) Last Admin: 11/22/17 09:31 Dose: 5 mg Pantoprazole Sodium (Protonix Susp) 40 mg PO 0600 [facility] Last Admin: 11/24/17 06:19 Dose: 40 mg Saliva Substitute (Saliva Substitute) 0 ml PO Q2 [facility] Last Admin: 11/24/17 06:19 Dose: 1 ml Silver Sulfadiazine (Silvadene 1% 25 Gm) 0 gm TP BID [facility] Last Admin: 11/23/17 17:53 Dose: 25 gm - Labs Labs: 11/24/17 06:00 11/24/17 06:00 PT 13.6 SECONDS (9.4-12.5) H 11/21/17 17:28 INR 1.19 (0.93-1.08) H 11/21/17 17:28 APTT 29.9 Seconds (25.1-36.5) 11/21/17 17:28 - Constitutional Appears: Cachectic, Chronically Ill - Head Exam Head Exam: NORMAL INSPECTION - ENT Exam ENT Exam: Mucous Membranes Moist - Neck Exam Neck Exam: absent: Lymphadenopathy, Meningismus - Respiratory Exam Respiratory Exam: Decreased Breath Sounds Additional comments: left chest, shoulder and neck area healing - Cardiovascular Exam Cardiovascular Exam: +S1, +S2 - GI/Abdominal Exam GI & Abdominal Exam: Soft. 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
--- NOTE | 2017-11-24 18:07 | PN ---
DATE: 11/24/2017 SUBJECTIVE: Patient is seen lying in bed. He is awake, he is alert. He denies any chest pain. He denies any shortness of breath. He denies any cough. He is eating. PHYSICAL EXAMINATION: GENERAL: Elderly male lying in bed. VITAL SIGNS: Blood pressure 167/94, heart rate 88, respiratory rate 20, temperature 97.3. HEENT: Normocephalic, atraumatic. NECK: Supple, no JVD. LUNGS: Bilateral equal air entry, bilateral equal expansion, no rales. CARDIAC: S1, S2, regular rate and rhythm, no murmur, no rub. ABDOMEN: Soft, nondistended, nontender, positive PEG. EXTREMITIES: No lower extremity edema. INTAKE AND OUTPUT: 120/2150 LABORATORY DATA: WBC 15.7, hemoglobin 10.7, hematocrit 33, platelets 411. Sodium 142, potassium 4.4, chloride 102, CO2 of 35. BUN 35, creatinine 0.7. Glucose 107. Calcium 9.2, phosphorus 3.4 magnesium 2.3. AST 72, ALT 88. Albumin 2.7. Cultures no growth so far. CURRENT MEDICATIONS: Amitiza, Brovana, DuoNeb, Ecotrin, Lopressor 25 b.i.d., meropenem 1 g every 8 hours, morphine, gabapentin 400 b.i.d., nystatin, oxycodone, Plavix, Protonix, Pulmicort, Silvadene, half-normal saline at 40, Solu-Medrol 20 every 12 hours, Synthroid, Tylenol, vancomycin, and Zithromax. ASSESSMENT: 1. History of hyponatremia/syndrome of inappropriate antidiuretic hormone, currently hypernatremic. Continue to hold Samsca. 2. Aspiration pneumonia. 3. Dehydration. 4. Malnutrition. 5. Laryngeal cancer. PLAN: 1. Continue to hold Samsca. 2. Continue hypotonic IV fluids. 3. Push p.o. intake. 4. Taper down tube feeding. 5. Continue Pro-Stat via tube feeding. Marissa Cohen MD
[2017-11-24] MEDS: Vancomycin 1gm in NS 250ml 1 GM/250 ML BAG IVPB SCH (18:19)
[2017-11-24] MEDS: Sodium Chloride 0.45% 1,000 ML IV SCH (21:17)
[2017-11-25] MEDS: oxyCODONE 5 mg Immediate Release Tab PO PRN ×3 (00:30→18:21)
[2017-11-25] MEDS: Saliva Substitute 44.3 ML PO SCH ×4 (02:49→05:23)
[2017-11-25] MEDS: Pantoprazole 40 mg Susp UD PO SCH (05:20)
[2017-11-25] MEDS: Meropenem IV 1 gm in NS 50 ML IVPB SCH ×3 (05:22→21:58)
[2017-11-25] MEDS: Vancomycin 1gm in NS 250ml 1 GM/250 ML BAG IVPB SCH (05:29)
[2017-11-25 06:28] LABS: EOS % 0.3 % (1.5-5.0); GRAN # 11.44 (1.4-6.5); GRAN % 87.4 % (50.0-68.0); HEMOGLOBIN 10.4 g/dL (14.0-18.0); LYMPH # 0.9 (1.2-3.4); LYMPH % 6.7 % (22.0-35.0); MEAN CORPUSCULAR HEMOGLOBIN 28.9 pg (25.0-35.0); MEAN CORPUSCULAR HGB CONC 32.1 g/dl (31.0-37.0); MEAN PLATELET VOLUME 9.8 fl (7.0-11.0); MONO # 0.7 (0.1-0.6); MONO % 5.6 % (1.0-6.0); RBC 3.6 10^6/uL (3.5-6.1); WHITE BLOOD COUNT 13.1 10^3/ul (4.5-11.0)
[2017-11-25] MEDS: Morphine 2 mg/2 mL syringe IVP PRN ×2 (06:35→11:06)
[2017-11-25 06:47] LABS: ALB/GLOB RATIO 0.8 (1.1-1.8); ALBUMIN 2.5 g/dL (3.0-4.8); ALT/SGPT 115 U/L (7-56); AST/SGOT 77 U/L (17-59); BLOOD UREA NITROGEN 32 mg/dL (7-21); CALCIUM 8.6 mg/dL (8.4-10.5); GFR AFRICAN-AMERICAN > 60; GFR NON-AFRICAN AMERICAN > 60
[2017-11-25] MEDS ORDERED: Saliva Substitute 44.3 ML PO PRN (07:29)
[2017-11-25] MEDS: Budesonide 0.5 mg/2 ml Inhal Susp UD IH SCH ×2 (08:18→19:43)
[2017-11-25] MEDS: Arformoterol 15 mcg/2 ml Inh Sol IH SCH ×2 (08:18→19:42)
[2017-11-25] MEDS: Nystatin 100,000 Units/ml Oral Susp 5 ml UD PO SCH ×4 (09:49→21:59)
[2017-11-25] MEDS: MethylPREDNISolone 40 mg Vial IVP SCH (09:49)
[2017-11-25] MEDS: Levothyroxine 100 mcg (0.1 mg) Inj IVP SCH (09:50)
[2017-11-25] MEDS: Azithromycin 500MG/NS 250ml 500 MG/250 ML BAG IVPB SCH (09:50)
[2017-11-25] MEDS: AMITIZA 24 MG PEG SCH ×2 (09:51→17:29)
[2017-11-25] MEDS: Prostat 15 g packet GT SCH ×2 (09:52→17:40)
[2017-11-25] MEDS: Silver Sulfadiazine 1% Cream (25 gm) TP SCH ×2 (09:52→17:06)
[2017-11-25] MEDS: Lidocaine 5% Oint(35 gm) TOP SCH ×2 (09:54→17:06)
--- NOTE | 2017-11-25 12:03 | CP.PCM.PN ---
Subjective - Date & Time of Evaluation Date of Evaluation: 11/25/17 Time of Evaluation: 10:05 - Subjective Subjective: Patient is feeling much better today, no nausea, no diarrhea, cough is improving , no SOB at rest. Objective - Vital Signs/Intake and Output Vital Signs (last 24 hours): Temp Pulse Resp BP Pulse Ox 98 F 85 21 156/86 H 98 11/25/17 07:23 11/25/17 07:23 11/25/17 07:23 11/25/17 07:23 11/25/17 07:23 Intake and Output: 11/25/17 11/25/17 06:59 18:59 Intake Total 720 Output Total 1125 Balance -405 - Medications Medications: Current Medications Acetaminophen (Tylenol 650mg/20.3ml Solution Ud) 640 mg GT Q4 PRN PRN Reason: Fever >100.4 F Albuterol/Ipratropium (Duoneb 3 Mg/0.5 Mg (3 Ml) Ud) 3 ml IH Q3H PRN PRN Reason: Shortness of Breath Arformoterol Tartrate (Brovana) 15 mcg IH [id number] [facility] Last Admin: 11/24/17 19:18 Dose: 15 mcg Aspirin (Ecotrin) 81 mg PO DAILY [facility] Last Admin: 11/24/17 09:53 Dose: 81 mg Budesonide (Pulmicort Respules) 0.5 mg IH [id number] [facility] Last Admin: 11/24/17 19:18 Dose: 0.5 mg Clopidogrel Bisulfate (Plavix) 75 mg PO DAILY [facility] Last Admin: 11/24/17 09:52 Dose: 75 mg Gabapentin (Neurontin) 400 mg PO BID [facility] Last Admin: 11/24/17 18:14 Dose: 400 mg Vancomycin HCl (Vancomycin 1gm) 1 gm in 250 mls @ 167 mls/hr IVPB Q12H [facility] PRN Reason: Protocol Last Admin: 11/25/17 05:29 Dose: 167 mls/hr Azithromycin (Zithromax 500mg In Ns) 500 mg in 250 mls @ 167 mls/hr IVPB DAILY [facility] PRN Reason: Protocol Last Admin: 11/24/17 09:52 Dose: 167 mls/hr Meropenem (Merrem Iv 1 Gm Premix) 50 mls @ 100 mls/hr IVPB Q8 [facility] PRN Reason: Protocol Stop: 11/29/17 06:31 Last Admin: 11/25/17 05:22 Dose: 100 mls/hr Sodium Chloride (Sodium Chloride 0.45%) 1,000 mls @ 40 mls/hr IV .Q24H [facility] Last Admin: 11/24/17 21:17 Dose: 40 mls/hr Levothyroxine Sodium (Synthroid) 50 mcg IVP DAILY [facility] Last Admin: 11/24/17 09:52 Dose: 50 mcg Lidocaine (Lidocaine 5%) 0 gm TOP BID [facility] Last Admin: 11/24/17 18:17 Dose: 1 applic Methylprednisolone (Solu-Medrol) 20 mg IVP Q12 [facility] Last Admin: 11/24/17 21:17 Dose: 20 mg Metoprolol Tartrate (Lopressor) 25 mg PO BRKDIN [facility] Last Admin: 11/24/17 18:15 Dose: 25 mg Morphine Sulfate (Morphine) 2 mg IVP Q4H PRN PRN Reason: Pain, severe (8-10) Last Admin: 11/25/17 06:35 Dose: 2 mg Non-Formulary Medication (Amitiza) 24 mg PEG BID [facility] Last Admin: 11/24/17 18:15 Dose: Not Given Nystatin (Nystatin Oral Susp) 5 ml PO QID [facility] Last Admin: 11/24/17 21:17 Dose: 5 ml Oxycodone HCl (Oxycodone Immediate Release Tab) 5 mg PO Q6H PRN PRN Reason: Pain, moderate (4-7) Last Admin: 11/25/17 00:30 Dose: 5 mg Pantoprazole Sodium (Protonix Susp) 40 mg PO 0600 [facility] Last Admin: 11/25/17 05:20 Dose: 40 mg Saliva Substitute (Saliva Substitute) 0 ml PO Q2 PRN PRN Reason: DRY MOUTH Silver Sulfadiazine (Silvadene 1% 25 Gm) 0 gm TP BID [facility] Last Admin: 11/24/17 18:17 Dose: 25 gm - Labs Labs: 11/25/17 06:00 11/25/17 06:00 PT 13.6 SECONDS (9.4-12.5) H 11/21/17 17:28 INR 1.19 (0.93-1.08) H 11/21/17 17:28 APTT 29.9 Seconds (25.1-36.5) 11/21/17 17:28 - Constitutional Appears: Cachectic, Chronically Ill - Head Exam Head Exam: NORMAL INSPECTION - ENT Exam ENT Exam: Mucous Membranes Moist - Neck Exam Neck Exam: absent: Lymphadenopathy, Meningismus Additional comments: left shoulder, neck and chest area with improved skin lesion - Respiratory Exam Respiratory Exam: Decreased Breath Sounds - Cardiovascular Exam Cardiovascular Exam: +S1, +S2 - GI/Abdominal Exam GI & Abdominal Exam: Soft. 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
[2017-11-25] MEDS: Morphine 4 mg/ml ISec IVP PRN ×2 (13:29→17:04)
[2017-11-25] MEDS: Sodium Chloride 0.45% 1,000 ML IV SCH (13:44)
--- NOTE | 2017-11-25 15:18 | PN ---
NO CONTENT DATE: 11/24/2017 Gary Zapata MD [facility] # [id number] [place]
--- NOTE | 2017-11-25 15:35 | RAD ---
PROCEDURE: Cervical Spine Radiographs. HISTORY: Pain. COMPARISON: None. FINDINGS: BONES: Alignment maintained. No fracture. Dens Intact. DISC SPACES: Multilevel disc and facet degeneration can be seen. SOFT TISSUES: Normal. No prevertebral soft tissue swelling. OTHER FINDINGS: Heavily calcified carotid arteries IMPRESSION: Degenerative changes. No acute fracture
--- NOTE | 2017-11-25 16:13 | PN ---
DATE: 11/25/2017 SUBJECTIVE: The patient is seen sitting up in bed. He complains of severe left shoulder pain. He reports the pain was unbearable last night. Unable to sleep because of the pain. He denies any cough. He denies any shortness of breath. He denies any difficulty swallowing. PHYSICAL EXAMINATION: GENERAL: Thinly built, cachectic-appearing elderly male sitting in bed. VITAL SIGNS: Blood pressure 156/86, heart rate 85, respiratory rate 21, temperature 98. HEENT: Normocephalic, atraumatic. NECK: Supple, no JVD. LUNGS: Bilateral equal air entry, bilateral distant breath sounds, bilateral rhonchi. CARDIAC: S1, S2. Regular rate and rhythm. No murmur, no rub. ABDOMEN: Soft, nondistended, nontender, positive PEG. EXTREMITIES: No lower extremity edema. INTAKE AND OUTPUT: 1380/2175. LABORATORY DATA: WBC 13, hemoglobin 10, hematocrit 32, platelets 397. Sodium 132, potassium 4.2, chloride 95, CO2 of 34, BUN 32, creatinine 0.6, glucose 141, calcium 8.6, phosphorus 3.4, magnesium 2, albumin 2.5. Cultures, no growth so far. MEDICATIONS: Amitiza, Brovana, DuoNeb, Ecotrin, Lopressor 25 b.i.d., Merrem, morphine, gabapentin, nystatin, oxycodone, Plavix, Protonix, Pulmicort, Silvadene, half-normal saline at 40, Solu-Medrol, Synthroid, Tylenol, vancomycin. ASSESSMENT: 1. Hypernatremia/dehydration, resolved, now hyponatremic. 2. History of syndrome of inappropriate antidiuretic hormone. 3. Aspiration pneumonia. 4. History of laryngeal carcinoma, radiation, radiation pharyngitis. 5. Cachexia. 6. Severe left shoulder pain. PLAN: 1. Discontinue IV fluids. 2. Push p.o. intake as tolerated. 3. Pain management. 4. Orthopedic evaluation. 5. Possible steroid injection in the left shoulder. Marissa Cohen MD [facility] # [id number]
--- NOTE | 2017-11-25 22:57 | PN ---
DATE: 11/25/2017 PULMONARY PROGRESS NOTE REFERRING PHYSICIAN: Gary Zapata MD. SUBJECTIVE: He is lying in the bed, head at 45 degrees. Feels better. Tolerating p.o. diet well. Cough is better. No nausea. No vomiting or diarrhea. No leg pain or leg swelling. OBJECTIVE: GENERAL: In no acute distress. VITAL SIGNS: Temp is 98, heart rate is 76, respiratory rate is 20, blood pressure 165/84, pulse ox of 95% on 2 L nasal cannula. HEENT: Moist mucous membrane. No ulcer or thrush noted. NECK: Supple. No JVD. LUNGS: Have a few crackles on the right base. HEART: S1, S2. ABDOMEN: Soft, nontender, nondistended. G-tube area looks okay. EXTREMITIES: There is no edema. NEUROLOGIC: Awake, alert. Follows simple command. MEDICATIONS: He is on Amitiza 24 mcg G-tube twice a day, Brovana inhaled twice a day, DuoNeb every 3 hours p.r.n., Ecotrin 81 mg daily, lidocaine patch to affected area twice a day, metoprolol tartrate 25 mg twice a day, meropenem 1 g IV every 8 hours, morphine 5 mg IV every 4 hours p.r.n., gabapentin 400 mg twice a day, oxycodone immediate release 5 mg every 6 hours p.r.n., Plavix 75 mg daily, Protonix 40 mg daily, Pulmicort inhaled twice a day, Solu-Medrol 20 mg IV every 12 hours, Synthroid 50 mcg daily, Tylenol p.r.n. basis, vancomycin 1 g IV every 12 hours and Zithromax 500 mg daily. LABORATORY DATA: Shows hemoglobin 10.4, hematocrit 32.4, WBC 13.1, platelet count is 397. Sodium 132, potassium 4.2, chloride 95, bicarbonate 34, BUN 32, creatinine 0.6, glucose 141, calcium 8.6, phosphorus 3.4. AST 77, ALT 115, alk phos is 71. Albumin is 2.5. Microbiology: Blood culture, urine culture and sputum culture are nondiagnostic. He has a cervical spine x-ray done today, which shows degenerative joint disease. IMPRESSION AND PLAN: Unresectable laryngeal carcinoma with metastatic disease, been on radiation and chemotherapy, chronic obstructive lung disease, hypertension, history of hyponatremia, status post cellulitis with dermatitis, had a Staphylococcus infection; oropharyngeal dysphagia, has a G-tube, malnutrition; right lower lobe aspiration pneumonia. Case discussed with speech therapy in detail. Of course, my concern is further aspiration. I was told that patient was overfeeding himself through the G-tube, had vomiting and that may be caused aspiration pneumonia. We will decrease Solu-Medrol to 20 mg daily. Continue antibiotics as per Infectious Disease. Keep head at 45 degrees. Gastric prophylaxis, deep vein thrombosis prophylaxis. Thank you and we will follow with you. Masoud Moyer MD
--- NOTE | 2017-11-26 00:03 | PN ---
DATE: 11/25/2017 SUBJECTIVE: This patient was seen and evaluated earlier today. Patient tolerated the breakfast well. He nearly finished about 100% of the breakfast. PHYSICAL EXAMINATION: VITAL SIGNS: Temperature is 97.5, pulse 79, blood pressure is 160/84. HEENT: Atraumatic, anicteric. NECK: Supple. The left shoulder and the neck area skin lesions nearly healed. HEART: S1, S2 heard. LUNGS: Bilateral air entry present. ABDOMEN: Soft. No tenderness. PEG tube in place. EXTREMITIES: No edema. No cyanosis. NEUROLOGIC: Alert, oriented. Moves all the extremities. LABORATORY DATA: WBC is 13.1, hemoglobin 10.4, hematocrit 32.4, platelets 395. Chemistry showed BUN 32, creatinine 0.6. IMPRESSION: This is an 87-year-old patient with stage IV laryngeal carcinoma, status post radiation; dermatitis; and methicillin-resistant Staphylococcus aureus cellulitis admitted with shortness of breath, found to have a right lower lobe pneumonia, the concern about an aspiration. The patient did have a modified barium swallow and showed no obvious aspiration, but recommended advance the bite size consistency diet with thin liquid with strict aspiration precautions. The concern is, patient is able to tolerate better food, now the breakfast, but he was also getting 50 mL of PEG feeding Jevity. I did discuss with the patient regarding the bolus, which he was getting at home, but he is reluctant to have it done, at the present time,with the reason I did speak with the dietary and the plan is change the feeding to TwoCal, which will give more calories with less volume. During the daytime, 6:00 a.m. to 6:00 p.m., he will be on 30 mL of PEG tube feeding and the feeding will be increased to 50 mL, during the night, evening time, from 6:00 p.m. to 6:00 a.m., TwoCal, which gives near the higher calories. The patient was advised to eat small quantities of the food. Advised to chew well. Discussed with the nursing staff regarding the strict aspiration precautions. Thank you very much for allowing us to participate in the care of the patient. Pj Foreman MD [facility] # [id number]
[2017-11-26] MEDS: Meropenem IV 1 gm in NS 50 ML IVPB SCH ×3 (05:18→21:10)
[2017-11-26] MEDS: Pantoprazole 40 mg Susp UD PO SCH (05:18)
[2017-11-26 06:41] LABS: BASO # 0.01 K/mm3 (0.0-2.0); BASO % 0.1 % (0.0-3.0); EOS # 0.7 (0.0-0.7); EOS % 3.6 % (1.5-5.0); GRAN # 15.22 (1.4-6.5); GRAN % 83.5 % (50.0-68.0); HEMOGLOBIN 10.2 g/dL (14.0-18.0); LYMPH # 1.2 (1.2-3.4); LYMPH % 6.4 % (22.0-35.0); MEAN CELL VOLUME 89.1 fl (80.0-105.0); MEAN CORPUSCULAR HEMOGLOBIN 29.1 pg (25.0-35.0); MEAN CORPUSCULAR HGB CONC 32.7 g/dl (31.0-37.0); MEAN PLATELET VOLUME 9.4 fl (7.0-11.0); MONO # 1.2 (0.1-0.6); MONO % 6.4 % (1.0-6.0); RBC 3.5 10^6/uL (3.5-6.1); RED CELL DISTRIBUTION WIDTH 14.7 % (11.5-14.5); WHITE BLOOD COUNT 18.2 10^3/ul (4.5-11.0)
[2017-11-26 06:52] LABS: ALB/GLOB RATIO 0.9 (1.1-1.8); ALBUMIN 2.3 g/dL (3.0-4.8); ALT/SGPT 131 U/L (7-56); AST/SGOT 77 U/L (17-59); BLOOD UREA NITROGEN 37 mg/dL (7-21); CALCIUM 8.6 mg/dL (8.4-10.5); GFR AFRICAN-AMERICAN > 60; GFR NON-AFRICAN AMERICAN > 60
--- NOTE | 2017-11-26 07:24 | PN ---
DATE: 11/24/2017 This is [facility] visit on the medical floor. For Dr. Smith. SUBJECTIVE: The patient is an 87-year-old male seen sitting up in bed with his son at the bedside, reporting he feels better, being treated for pneumonia, possibly aspiration pneumonia with swallowing evaluation completed yesterday with his diet advanced. The patient continues to take PEG feedings along with IV fluids in the interim as per Dr. Cohen, nephrology/fluid knowledge management consultant. With this, the patient is reporting discomfort to his left neck and chest wall. The pain there is markedly improved with the patient continued on IV antibiotics as per Dr. Cali. Plan for this patient is to be transferred once he is stable to subacute rehab facility as he cannot participate in activities of daily living at home with his PEG feedings along with his medications with the patient having been hospitalized recently with maximal assist requested for home needs and yet the patient was unable to remain out of the hospital due to his severe morbidity. Hopefully, the subacute rehab facility will be able to accommodate his needs and keep him out of the hospital for a long period of time. PHYSICAL EXAMINATION: VITAL SIGNS: Temperature 97.3, pulse 88, respirations 20, blood pressure 167/94, pulse ox 98% on oxygen. HEENT: Unremarkable. Tongue is dry with recent laryngoscopy by Dr. Castro showing oropharyngeal candidiasis. NECK: Supple. HEART: Faint crackles at the right base. ABDOMEN: Scaphoid with viable PEG tube. EXTREMITIES: Faint +1 edema. NEUROLOGIC: Awake, alert, and oriented. SKIN: Otherwise, warm, and dry and clear with healing lesions on his left neck and chest wall. LABORATORY DATA: The patient's labs were done. White blood cell count of 15.7, down from 20.1 yesterday; hemoglobin of 10.7; hematocrit of 33.2; and platelet count of 411,000 with a chem metabolic panel showing a BUN of 35, creatinine of 0.7, AST of 72, ALT of 88, with a total protein of 5.8, albumin of 2.7, TSH of 5.2. The patient's vancomycin trough level was 13.7 yesterday. Influenza and Legionella pneumophila testing was negative. The patient's urine culture, blood cultures were also negative. The patient had a modified barium swallow done yesterday. It was read as evaluation of swallowing function with speech therapist, Serene Susana, reporting that the patient's diet may be advanced with PEG feedings to continue and IV fluids to be cut back as per Dr. Cohen as indicated. 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 PLAN: For this patient after conversation with Dr. Cohen and Dr. Smith and Dr. Lockett is to continue his present medical regimen with advancement of his diet to a dysphagia modified consistency diet, to advance bite size consistency with thin liquids with no bread and no dry solids. We will also recommend for the patient to be transferred to [facility] for subacute rehab once he is stable for reconditioning as the patient is unable to live by himself at this point. He also needs to be out of bed to the chair on a daily basis with physiotherapy also to be ordered for as isolation was discontinued as per Dr. Cali. This is a complex patient with a comprehensive medically necessary and appropriate visit carried out in excess of 30 minutes of [id number] time, also conversation was held with the patient's son at the bedside. The patient's questions were answered to his satisfaction. His testing was reviewed, conversation was held with other physicians regarding the patient's care. Gary Zapata MD
[2017-11-26] MEDS: Arformoterol 15 mcg/2 ml Inh Sol IH SCH ×2 (07:47→19:26)
[2017-11-26] MEDS: Budesonide 0.5 mg/2 ml Inhal Susp UD IH SCH ×2 (07:47→19:26)
[2017-11-26] MEDS: AMITIZA 24 MG PEG SCH ×2 (09:16→17:20)
[2017-11-26] MEDS: Lidocaine 5% Oint(35 gm) TOP SCH ×2 (09:16→17:22)
[2017-11-26] MEDS: Levothyroxine 100 mcg (0.1 mg) Inj IVP SCH (09:17)
[2017-11-26] MEDS: Azithromycin 500MG/NS 250ml 500 MG/250 ML BAG IVPB SCH (09:20)
[2017-11-26] MEDS: Nystatin 100,000 Units/ml Oral Susp 5 ml UD PO SCH ×4 (09:20→21:09)
[2017-11-26] MEDS: Prostat 15 g packet GT SCH ×2 (09:22→17:21)
[2017-11-26] MEDS: Silver Sulfadiazine 1% Cream (25 gm) TP SCH ×2 (09:27→17:21)
[2017-11-26] MEDS ORDERED: MethylPREDNISolone 40 mg Vial IVP SCH (10:00)
[2017-11-26] MEDS: Vancomycin 750mg 750 MG/250 ML BAG IVPB SCH ×2 (11:10→23:30)
--- NOTE | 2017-11-26 11:14 | CON ---
DATE: 11/25/2017 ORTHOPEDIC CONSULT LOCATION: Room 361, bed 2. The patient of Dr. Gary Zapata. I was asked to see the patient for a left arm pain, which has been present for about five days. He has been in the hospital for approximately five days, and he has good range of motion of the left shoulder. X-rays show a well-placed reverse shoulder prosthesis that is not loose. No signs of infection, and it was done by Dr. Nick in [facility] five years ago and is going well. He has good range of motion. No pain with motioning, but he does complain of sensitivity pain as if it could be a neuropathy from neck arthritis. I am going to order a neck x-ray, and there is no signs of infection of the left shoulder, and the blood work does not substantiate shoulder infection, but we will see what the x-ray of the neck shows and we will so do some physical therapy for range of motion of the left shoulder, and he might need another x-ray in a week or two just to see if there is any change, if something else is happening. Right now, I feel so he has a radiculopathy of his left upper extremity with no infection of a well-placed left shoulder replacement done for rotator cuff tear years ago. Sagar Young DO
--- NOTE | 2017-11-26 11:14 | CP.PCM.PN ---
Subjective - Date & Time of Evaluation Date of Evaluation: 11/26/17 Time of Evaluation: 09:00 - Subjective Subjective: Patient is feeling better, no fevers, not in distress, no diarrhea. Objective - Vital Signs/Intake and Output Vital Signs (last 24 hours): Temp Pulse Resp BP Pulse Ox 97.6 F 82 20 151/75 H 98 11/26/17 07:47 11/26/17 07:47 11/26/17 07:47 11/26/17 07:47 11/26/17 07:47 Intake and Output: 11/26/17 11/26/17 06:59 18:59 Intake Total 1080 Output Total 1000 Balance 80 - Medications Medications: Current Medications Acetaminophen (Tylenol 650mg/20.3ml Solution Ud) 640 mg GT Q4 PRN PRN Reason: Fever >100.4 F Albuterol/Ipratropium (Duoneb 3 Mg/0.5 Mg (3 Ml) Ud) 3 ml IH Q3H PRN PRN Reason: Shortness of Breath Arformoterol Tartrate (Brovana) 15 mcg IH [id number] Last Admin: 11/26/17 07:47 Dose: 15 mcg Aspirin (Ecotrin) 81 mg PO DAILY [facility] Last Admin: 11/25/17 09:50 Dose: 81 mg Budesonide (Pulmicort Respules) 0.5 mg IH [id number] [facility] Last Admin: 11/26/17 07:47 Dose: 0.5 mg Clopidogrel Bisulfate (Plavix) 75 mg PO DAILY [facility] Last Admin: 11/25/17 09:50 Dose: 75 mg Gabapentin (Neurontin) 400 mg PO BID [facility] Last Admin: 11/25/17 17:05 Dose: 400 mg Azithromycin (Zithromax 500mg In Ns) 500 mg in 250 mls @ 167 mls/hr IVPB DAILY [facility] PRN Reason: Protocol Last Admin: 11/25/17 09:50 Dose: 167 mls/hr Meropenem (Merrem Iv 1 Gm Premix) 50 mls @ 100 mls/hr IVPB Q8 [facility] PRN Reason: Protocol Stop: 11/29/17 06:31 Last Admin: 11/26/17 05:18 Dose: 100 mls/hr Vancomycin HCl (Vancomycin 750 Mg In Ns) 750 mg in 250 mls @ 167 mls/hr IVPB Q12H [facility] PRN Reason: Protocol Ketorolac Tromethamine (Toradol) 15 mg IVP TID PRN PRN Reason: Pain, severe (8-10) Last Admin: 11/25/17 22:01 Dose: 15 mg Levothyroxine Sodium (Synthroid) 50 mcg IVP DAILY [facility] Last Admin: 11/25/17 09:50 Dose: 50 mcg Lidocaine (Lidocaine 5%) 0 gm TOP BID [facility] Last Admin: 11/25/17 17:06 Dose: 1 applic Methylprednisolone (Solu-Medrol) 20 mg IVP DAILY [facility] Metoprolol Tartrate (Lopressor) 25 mg PO BRKDIN [facility] Last Admin: 11/25/17 17:13 Dose: 25 mg Morphine Sulfate (Morphine) 5 mg IVP Q4H PRN PRN Reason: Pain, severe (8-10) Last Admin: 11/25/17 17:04 Dose: 5 mg Non-Formulary Medication (Amitiza) 24 mg PEG BID [facility] Last Admin: 11/25/17 17:29 Dose: Not Given Nystatin (Nystatin Oral Susp) 5 ml PO QID [facility] Last Admin: 11/25/17 21:59 Dose: 5 ml Oxycodone HCl (Oxycodone Immediate Release Tab) 5 mg PO Q6H PRN PRN Reason: Pain, moderate (4-7) Last Admin: 11/25/17 18:21 Dose: 5 mg Pantoprazole Sodium (Protonix Susp) 40 mg PO 0600 [facility] Last Admin: 11/26/17 05:18 Dose: 40 mg Saliva Substitute (Saliva Substitute) 0 ml PO Q2 PRN PRN Reason: DRY MOUTH Silver Sulfadiazine (Silvadene 1% 25 Gm) 0 gm TP BID [facility] Last Admin: 11/25/17 17:06 Dose: 25 gm - Labs Labs: 11/26/17 05:30 11/26/17 05:30 PT 13.6 SECONDS (9.4-12.5) H 11/21/17 17:28 INR 1.19 (0.93-1.08) H 11/21/17 17:28 APTT 29.9 Seconds (25.1-36.5) 11/21/17 17:28 - Constitutional Appears: Cachectic, Chronically Ill - Head Exam Head Exam: NORMAL INSPECTION - ENT Exam ENT Exam: Mucous Membranes Moist - Neck Exam Neck Exam: absent: Meningismus - Respiratory Exam Respiratory Exam: Decreased Breath Sounds Additional comments: right anterior chest wall port site clean and intact - Cardiovascular Exam Cardiovascular Exam: +S1, +S2 - GI/Abdominal Exam GI & Abdominal Exam: Soft. 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 Smith
--- NOTE | 2017-11-26 11:15 | PN ---
DATE: 11/25/2017 This is [facility] visit on the medical floor. For Dr. Smith. SUBJECTIVE: The patient is an 87-year-old male, now status post treatment for his severe shortness of breath with business process consultant's recommendations done with the patient feeling better in this respect; however, he now describes intense pain to the left shoulder, not the superficial pain of the skin irritation that is there; however, deep-seated pain he says like a bone or tendon, unrelieved by his narcotic analgesics, which include morphine 2 mg IV every 4 hours along with oxycodone 5 mg. He also takes gabapentin 400 mg twice a day and Solu-Medrol 20 IV every 12, and lidocaine topical. None of these medications have relieved his pain. He describes it as 9 or 10/10. With this, the patient is otherwise being treated with IV antibiotics and with nutritional support. PHYSICAL EXAMINATION: VITAL SIGNS: Temperature 98, pulse 85, respirations 21, blood pressure 156/86, pulse ox 98%. Weight is 119 pounds. He is on oxygen 2 liters nasal cannula. HEENT: Unremarkable. Tongue is dry. NECK: Supple. HEART: Tachy rate, regular rhythm. LUNGS: Faint rales at the right base. ABDOMEN: Soft with viable PEG tube scaphoid. EXTREMITIES: No edema. SKIN: Warm and dry except for healing lesions on his left neck, left anterior chest wall. NEUROLOGIC: Awake, alert, and oriented, but in significant pain with minimal decreased range of motion to his left shoulder; however, he has equal commissary representative. LABORATORY DATA: The patient's labs were done. White blood cell count of 13.1, hemoglobin 10.4, hematocrit 32.4, platelet count of 397,000 with a chem metabolic panel showing a chloride of 95 with a BUN of 32, creatinine of 0.6, nonfasting glucose 141 with an AST of 77, ALT of 115. His most recent TSH was 5.29. The patient's vancomycin level trough done this morning was 23.4. This will be adjusted by Dr. Cali. We asked for a stat x-ray of his left shoulder. It has not been read yet. The patient's MRSA testing was negative along with urine culture and blood cultures sine admission. ASSESSMENT: For this patient is that of severe left shoulder pain, rule out pathology fracture/tendon damage. Sepsis/pneumonia, stage LALO laryngeal carcinoma, status post radiation dermatitis, postherpetic neuralgia, left shoulder, atherosclerotic cardiovascular disease, hypertension, hypothyroidism. Nutritional compromise . Gary Zapata MD
[2017-11-26] MEDS ORDERED: Fluconazole IV 200mg/100 ml NS 100 ML IVPB SCH (12:15)
--- NOTE | 2017-11-26 13:29 | CON ---
DATE: 11/26/2017 ORTHOPEDIC CONSULT LOCATION: The patient is an 87-year-old male seen in room 362, bed 2. HISTORY OF PRESENT ILLNESS: Dr. Zapata asked me to see him for left shoulder pain and he has a left shoulder referred pain more at the deltoid insertion as opposed to the shoulder joint itself. He did have a well done reverse shoulder prosthesis by Dr. 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 No pain from the shoulder range of motion, but he does have a trigger point at the insertion of the deltoid on to the humerus and that is exquisitely tender, but there is no effusion of the shoulder, no signs of infection. So, I took the opportunity to inject him with Depo-Medrol and Marcaine around the trigger point, which corresponds to the insertion of the deltoid tendon to the left shoulder. We will see how he does by injecting it with Depo-Medrol and Marcaine, and we will follow him closely. FINAL DIAGNOSIS: Trigger point pain from tendinitis of the left shoulder around the deltoid insertion on to the humerus. Sagar Young DO
--- NOTE | 2017-11-26 13:30 | CP.PCM.PN ---
Subjective - Date & Time of Evaluation Date of Evaluation: 11/26/17 Time of Evaluation: 09:00 - Subjective Subjective: PGY-2 Heme-onc Progress Note for Dr. Smith Patient seen and examined at bedside. Patient states that he continues to have pain in his shoulder, he states that he received a injection this morning. He states that he is tolerating oral modified feeds as well as peg feeds well, no reports of emesis. Denies chest pain, shortness of breath, nausea, diarrhea, emesis, hemoptysis, diarrhea, melena. PT recommend AYAD. Objective - Vital Signs/Intake and Output Vital Signs (last 24 hours): Temp Pulse Resp BP Pulse Ox 97.6 F 82 20 151/75 H 98 11/26/17 07:47 11/26/17 07:47 11/26/17 07:47 11/26/17 07:47 11/26/17 07:47 Intake and Output: 11/26/17 11/26/17 06:59 18:59 Intake Total 1080 Output Total 1000 Balance 80 - Medications Medications: Current Medications Acetaminophen (Tylenol 650mg/20.3ml Solution Ud) 640 mg GT Q4 PRN PRN Reason: Fever >100.4 F Albuterol/Ipratropium (Duoneb 3 Mg/0.5 Mg (3 Ml) Ud) 3 ml IH Q3H PRN PRN Reason: Shortness of Breath Arformoterol Tartrate (Brovana) 15 mcg IH [id number] [facility] Last Admin: 11/26/17 07:47 Dose: 15 mcg Aspirin (Ecotrin) 81 mg PO DAILY [facility] Last Admin: 11/26/17 09:17 Dose: 81 mg Budesonide (Pulmicort Respules) 0.5 mg IH [id number] [facility] Last Admin: 11/26/17 07:47 Dose: 0.5 mg Clopidogrel Bisulfate (Plavix) 75 mg PO DAILY [facility] Last Admin: 11/26/17 09:17 Dose: 75 mg Gabapentin (Neurontin) 400 mg PO BID [facility] Last Admin: 11/26/17 09:16 Dose: 400 mg Azithromycin (Zithromax 500mg In Ns) 500 mg in 250 mls @ 167 mls/hr IVPB DAILY [facility] PRN Reason: Protocol Last Admin: 11/26/17 09:20 Dose: 167 mls/hr Meropenem (Merrem Iv 1 Gm Premix) 50 mls @ 100 mls/hr IVPB Q8 [facility] PRN Reason: Protocol Stop: 11/29/17 06:31 Last Admin: 11/26/17 13:13 Dose: 100 mls/hr Vancomycin HCl (Vancomycin 750 Mg In Ns) 750 mg in 250 mls @ 167 mls/hr IVPB Q12H [facility] PRN Reason: Protocol Last Admin: 11/26/17 11:10 Dose: 167 mls/hr Ketorolac Tromethamine (Toradol) 15 mg IVP TID PRN PRN Reason: Pain, severe (8-10) Last Admin: 11/26/17 13:13 Dose: 15 mg Levothyroxine Sodium (Synthroid) 50 mcg IVP DAILY [facility] Last Admin: 11/26/17 09:17 Dose: 50 mcg Lidocaine (Lidocaine 5%) 0 gm TOP BID [facility] Last Admin: 11/26/17 09:16 Dose: 1 applic Methylprednisolone (Solu-Medrol) 20 mg IVP DAILY [facility] Last Admin: 11/26/17 09:20 Dose: 20 mg Metoprolol Tartrate (Lopressor) 25 mg PO BRKDIN [facility] Last Admin: 11/26/17 09:17 Dose: 25 mg Morphine Sulfate (Morphine) 5 mg IVP Q4H PRN PRN Reason: Pain, severe (8-10) Non-Formulary Medication (Amitiza) 24 mg PEG BID [facility] Last Admin: 11/26/17 09:16 Dose: Not Given Nystatin (Nystatin Oral Susp) 5 ml PO QID [facility] Last Admin: 11/26/17 13:13 Dose: 5 ml Oxycodone HCl (Oxycodone Immediate Release Tab) 5 mg PO Q6H PRN PRN Reason: Pain, moderate (4-7) Last Admin: 11/25/17 18:21 Dose: 5 mg Pantoprazole Sodium (Protonix Susp) 40 mg PO 0600 [facility] Last Admin: 11/26/17 05:18 Dose: 40 mg Saliva Substitute (Saliva Substitute) 0 ml PO Q2 PRN PRN Reason: DRY MOUTH Silver Sulfadiazine (Silvadene 1% 25 Gm) 0 gm TP BID [facility] Last Admin: 11/26/17 09:27 Dose: 25 gm - Labs Labs: 11/26/17 05:30 11/26/17 05:30 PT 13.6 SECONDS (9.4-12.5) H 11/21/17 17:28 INR 1.19 (0.93-1.08) H 11/21/17 17:28 APTT 29.9 Seconds (25.1-36.5) 11/21/17 17:28 - Constitutional Appears: No Acute Distress, Chronically Ill - Head Exam Head Exam: ATRAUMATIC, NORMAL INSPECTION, NORMOCEPHALIC - Eye Exam Eye Exam: Normal appearance - ENT Exam ENT Exam: Mucous Membranes Moist - Respiratory Exam Respiratory Exam: Clear to Ausculation Bilateral, NORMAL BREATHING PATTERN. absent: Rhonchi, Wheezes, Respiratory Distress - Cardiovascular Exam Cardiovascular Exam: REGULAR RHYTHM. absent: Bradycardia, Tachycardia, Murmur - GI/Abdominal Exam GI & Abdominal Exam: Soft. 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 (on radiation and Erbitux therapy, s/p PEG tube for feeds), HTN, CAD s/p CABG, radiation dermatitis with MRSA cellulitis, and prior unspecified skin tumors who presented to [facility] with shortness of breath and lack of appetite x1 week found to have sepsis due to pna , Stage LALO larygneal carcinoma extending into/involving the thyroid/cricoid cartilage (s/p radiation and Erbitux therapy) HTN CAD s/p CABG sepsis due to pna, Right lower lobe lung infiltrate 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 - stable Neuropathic pain at prior cellulitis site, possible residual pain from herpetic rxn oral thrush Plan: - patient WBC increased, possible due to the oral thrush - will switch nystatin to diflucan 200mg for 1 day then 100mg for 3 days - repeat blood and urine cultures -CXR on admit suspicious for right lower lobe infiltrate, concerning for HCAP vs aspiration pneumonia, CT chest notable for RLL consolidation consistent with pneumonia, longstanding upper lobe fibrosis, and dilated pulm arteries consistent with pulm HTN - patient in vancomycin, merrem day 5 complete for 4-7 days per ID - will stop zithromycin -ID following -blood and urine cx negative and urine legionella negative; procal 0.39 - started on nystatin -Electronic Sales And Service Technician consulted for tube feeding until swallow study passed - modified barium swallow studied showed moderate pharyngeal dysphagia with no signs of aspiration, recommended diet of advanced bite sized consistencu with thin liquids - tubes feeds changed to 30cc from 6am to 6pm, and 50cc from 6 pm to 6 am of TwoCal should pain - cervial spine xray showed degenerative changes, shoulder xray offical read pending -Continue ASA and Plavix given hx of CAD s/p CABG, continue Lipitor -continue metolazone, Metoprolol -Continue Protonix for GI ppx -Echo obtained during last admission notable for EF 63%, mild aortic sclerosis, otherwise unremarkable -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 at last admission, Na 130 today, consider restarting tolvaptam -Nephro following -Speech therapist following, appreciate their recs -Neuro consulted for neuropathic pain, appreciate all recs; Gabapentin increased to 400mg BID, lidocaine ointment -Hgb 10.3, baseline 9's-10's as per prior charting; avoid ESAs in laryngeal ca, no indication for transfusion at this time -case manger consulted, pending placement at [facility] for [facility], then to move in with son in 1 month with addition of care staff to provided 24hr care Patient reviewed and discussed at length with attending, Dr. Smith.
--- NOTE | 2017-11-26 14:48 | PN ---
DATE: 11/26/2017 SUBJECTIVE: The patient is seen lying in bed. He is awake, he is alert. He is complaining of pain in his left shoulder. He had a steroid injection in this morning into the left shoulder, but the pain is still there. PHYSICAL EXAMINATION: GENERAL: Elderly male lying in bed. VITAL SIGNS: Blood pressure 151/75, heart rate 82, respiratory rate 20, temperature 97.6. HEENT: Normocephalic, atraumatic, positive pallor. NECK: Supple, no JVD. LUNGS: Bilateral equal air entry, bilateral equal expansion, distant breath sounds. CARDIAC: S1 and S2, regular rate and rhythm, no murmur, no rub. ABDOMEN: Soft, nondistended, nontender, positive PEG, bowel sounds present. EXTREMITIES: No lower extremity edema. INTAKE AND OUTPUT: 1855/2100. LABORATORY DATA: WBC 18, hemoglobin 10, hematocrit 31, platelets 349. Sodium 130, potassium 3.8, chloride 92, CO2 of 36, BUN 37, creatinine 0.6, glucose 100, calcium 8.6, phosphorus 3.1, magnesium 2, albumin 2.3. C-reactive protein 19.9. CURRENT MEDICATIONS: Amitiza, Brovana, DuoNeb, Ecotrin, Lopressor 25 b.i.d., Merrem 1 g every 8 hours, morphine 5 mg every 4 hours p.r.n., gabapentin 400 b.i.d., nystatin, oxycodone 5 mg every 6 hours, Plavix, Protonix, Pulmicort, Solu-Medrol 20 mg IV daily started this morning, Synthroid, Tylenol, vancomycin 750 every 12 hours, and Zithromax IV 500 daily. ASSESSMENT: 1. Aspiration pneumonia. 2. Hypernatremia/dehydration, resolved. 3. Chronic underlying hyponatremia. 4. Lung cancer. 5. Cachexia. 6. Left shoulder tendonitis. PLAN: 1. IV fluids have been discontinued, continue to monitor sodium. 2. Continue antibiotics for aspiration pneumonia. 3. Push p.o. intake. 4. Continue protein supplements via PEG. 5. Pain management. 6. Avoid nephrotoxins. Marissa Cohen MD
[2017-11-26] MEDS ORDERED: Fluconazole IV 200mg/100 ml NS 100 MG in Premixed IV 1 EA IVPB SCH (15:15)
[2017-11-26 16:37] LABS: HEMOGLOBIN 11.5 g/dL (14.0-18.0); MEAN CELL VOLUME 88.8 fl (80.0-105.0); MEAN CORPUSCULAR HEMOGLOBIN 29.3 pg (25.0-35.0); MEAN PLATELET VOLUME 9.4 fl (7.0-11.0); RBC 3.92 10^6/uL (3.5-6.1); RED CELL DISTRIBUTION WIDTH 14.7 % (11.5-14.5); WHITE BLOOD COUNT 23.6 10^3/ul (4.5-11.0)
--- NOTE | 2017-11-26 19:54 | RAD ---
PROCEDURE: Left shoulder HISTORY: severe pain COMPARISON: TECHNIQUE: Four views FINDINGS: There is a left shoulder prosthesis in satisfactory alignment. There is no evidence of acute fracture or dislocation IMPRESSION: No acute findings
[2017-11-26] MEDS: oxyCODONE 5 mg Immediate Release Tab PO PRN (21:08)
--- NOTE | 2017-11-27 00:47 | PN ---
DATE: 11/26/2017 PULMONARY PROGRESS NOTE REFERRING PHYSICIAN: Gary Zapata MD. SUBJECTIVE: He is out of bed to chair. Night was unremarkable. Breathing is better. Decreased cough, decreased shortness of breath. No nausea, no vomiting, no diarrhea. He does have a bowel movement. No leg pain or leg swelling. OBJECTIVE: GENERAL: In no acute distress. VITAL SIGNS: Temperature is 98, heart rate 82, respiratory rate is 20, blood pressure 151/75, pulse ox 98% on 3 L nasal cannula. HEENT: Moist mucous membrane. Crowded airway. NECK: Supple. No JVD. LUNGS: Have a few crackles at the bases. HEART: S1 and S2. ABDOMEN: Soft, nontender. No organomegaly. G-tube area looks okay. EXTREMITIES: There is no edema. NEUROLOGIC: Awake, alert. Follows simple command. MEDICATIONS: He is on Amitiza 24 mcg G-tube twice a day, Brovana inhaled twice a day, DuoNeb every 3 hours p.r.n., Ecotrin 81 mg daily, Diflucan 100 mg daily, lidocaine patch 5% to the affected area daily, metoprolol tartrate 25 mg twice a day, meropenem 1 g IV every 8 hours, morphine 5 mg IV every 4 hours p.r.n., Neurontin 400 mg twice a day, nystatin 5 mL four times a day, oxycodone immediate release 5 mg every 6 hours p.r.n., Plavix 75 mg daily, Protonix 40 mg daily, Pulmicort inhaled twice a day, saliva substitute every 2 hours p.r.n., Solu-Medrol 20 mg IV daily, Synthroid is 50 mcg daily, Toradol mg IV every 8 hours p.r.n., Tylenol p.r.n., vancomycin 750 mg every 12 hours. LABORATORY DATA: Shows hemoglobin 11.5, hematocrit 34.8, WBC 23,000, platelet is 357. Sodium 130, potassium 3.8, chloride 92, bicarbonate 36, BUN 37, creatinine 0.6, glucose 100, calcium is 8.6, phosphorus 3.1, magnesium 2.0. AST 77, ALT 131. C-reactive protein is 19. Albumin is 2.3. Microbiology: Blood culture, urine culture, nose for MRSA is unremarkable. IMPRESSION AND PLAN: Unresectable laryngeal carcinoma with metastatic disease, been on radiation and chemotherapy; chronic obstructive lung disease; hypertension; history of hyponatremia; status post cellulitis at the chest wall secondary to radiation; oropharyngeal dysphagia, has a G-tube, on modified diet; malnourished; right lower lobe aspiration pneumonia. Pulmonary point of view, doing okay. Continue bronchodilator, keep head at 45 degrees, antibiotics, aspiration precaution. We will discontinue Solu-Medrol. Placed on prednisone 10 mg daily with taper off next 2 to 3 days. Out of bed to chair. Physical therapy. Thank you and we will follow with you. Masoud Moyer MD
[2017-11-27] MEDS: Morphine 5 MG/ML SYRINGE IVP PRN ×3 (03:25→15:39)
--- NOTE | 2017-11-27 03:50 | PN ---
DATE: 11/26/2017 SUBJECTIVE: This patient was seen and evaluated earlier today. The feeding has been changed from 6:00 a.m. to 6:00 p.m. 30 mL per hour and 6:00 p.m. to 6:00 a.m. 50 mL per hour of TwoCal. Patient is tolerating diet. Patient is advised a small amount of food, eat slowly. PHYSICAL EXAMINATION: VITAL SIGNS: Temperature is 97.6, pulse 53, blood pressure is 155/84. HEENT: Atraumatic, anicteric. NECK: Supple. HEART: S1, S2 heard. LUNGS: A few basal scattered rhonchi present. ABDOMEN: Soft. There is a PEG tube present. EXTREMITIES: No cyanosis. No clubbing. LABORATORY DATA: Hemoglobin 11.5, hematocrit 34.8, WBC count increased to 26.3, platelets 357. Sodium 130, potassium 3.8. Laboratory data, as reviewed above. IMPRESSION AND PLAN: This is an 87-year-old patient with laryngeal cancer status post radiation therapy, patient had a feeding tube placement, was admitted with pneumonia and he has been on antibiotics. Patient did have swallowing evaluation done by speech therapist, modified barium swallow was done. Patient is presently on dysphagia diet. We will continue to closely followup with care and suggest further management based on the clinical course. Pj Foreman MD
[2017-11-27] MEDS: Pantoprazole 40 mg Susp UD PO SCH (05:04)
[2017-11-27] MEDS: Meropenem IV 1 gm in NS 50 ML IVPB SCH ×2 (05:04→13:07)
[2017-11-27 06:28] LABS: HEMOGLOBIN 10.5 g/dL (14.0-18.0); MEAN CELL VOLUME 88.9 fl (80.0-105.0); MEAN CORPUSCULAR HEMOGLOBIN 29.2 pg (25.0-35.0); MEAN CORPUSCULAR HGB CONC 32.8 g/dl (31.0-37.0); MEAN PLATELET VOLUME 9.4 fl (7.0-11.0); RBC 3.6 10^6/uL (3.5-6.1); RED CELL DISTRIBUTION WIDTH 14.7 % (11.5-14.5); WHITE BLOOD COUNT 19.1 10^3/ul (4.5-11.0)
--- NOTE | 2017-11-27 06:46 | PN ---
DATE: 11/24/2017 PULMONARY PROGRESS NOTE REFERRING PHYSICIAN: Gary Zapata MD SUBJECTIVE: He is lying in the bed, head at 45 degrees. Feels better. Still has some cough and shortness of breath. Yesterday modified barium swallow noted. Speech therapy cleared him for the diet. No nausea. No vomiting. No diarrhea. No leg pain or leg swelling. OBJECTIVE: GENERAL: In no acute distress. VITAL SIGNS: Temperature is 98, heart rate is 84, respiratory rate is 20, blood pressure 150/73, pulse ox 98% on 2 liter nasal cannula. HEENT: Moist mucous membranes. Crowded airway. Mallampati score is four. NECK: Supple. No JVD. LUNGS: Has crackles on the right base. Scattered rhonchi. HEART: S1 and S2. ABDOMEN: Soft, nontender, nondistended. G-tube area looks okay. EXTREMITIES: There is no edema. NEUROLOGIC: Awake, alert, follows simple commands. MEDICATIONS: He is on Amitiza 24 mcg G-tube twice a day, Brovana inhaled twice a day, DuoNeb every 3 hours p.r.n., Ecotrin 81 mg daily, lidocaine patch to the affected area twice a day, metoprolol tartrate 25 mg twice a day, meropenem 1 g IV every 8 hours, morphine 2 mg every 4 hours p.r.n., Neurontin 400 mg twice a day, nystatin oral suspension 5 mL four times a day, oxycodone immediate release 5 mg every 6 hours p.r.n., Plavix 75 mg daily, Protonix 40 mg daily, Pulmicort inhaled twice a day, saliva substitute every 2 hours, IV fluid half normal saline 14 mL per hour, Solu-Medrol 20 mg every 12 hours, Synthroid 50 mcg daily, Tylenol p.r.n. basis, vancomycin 1 g IV every 12 hours, Zithromax 500 mg daily. LABORATORY DATA: Shows hemoglobin 10.7, hematocrit 33.2, WBC 15.7, platelet count is 411. Sodium 142, potassium 4.4, chloride 102, bicarbonate 35, BUN 35, creatinine 0.7, glucose 107, calcium is 9.2, phosphorus is 3.4, magnesium is 2.3, AST 72, ALT 88, alk phos is 84, albumin is 2.7. Microbiology: Blood culture, urine culture, and nose are unremarkable. IMPRESSION AND PLAN: Unresectable laryngeal carcinoma with metastatic disease, been on radiation and chemotherapy; chronic obstructive lung disease; hypertension; history of hyponatremia; status post cellulitis at the chest wall with Staph, treated accordingly; oropharyngeal dysphagia, has a G-tube; malnutrition; has a right lower lobe pneumonia, probably secondary to aspiration. Even though speech therapy cleared, but the patient with a risk of aspiration. Patient is high risk for aspiration, especially with chronic disease and reoccurring pneumonia. If need to feed patient, main source of feeding should be G-tube. Oral should be eating an patient should be sitting up, especially when drinking. Still high risk for respiratory failure. I spoke to the patient in detail. He understand and expressed, will be taking precaution. Continue antibiotics. Gastric prophylaxis. Bronchodilators. Thank you and we will follow with you. Masoud Moyer MD
[2017-11-27 07:07] LABS: ALB/GLOB RATIO 0.9 (1.1-1.8); ALBUMIN 2.5 g/dL (3.0-4.8); ALT/SGPT 116 U/L (7-56); AST/SGOT 51 U/L (17-59); BLOOD UREA NITROGEN 35 mg/dL (7-21); CALCIUM 8.4 mg/dL (8.4-10.5); GFR AFRICAN-AMERICAN > 60; GFR NON-AFRICAN AMERICAN > 60
[2017-11-27 07:54] VITALS: BP 138/71; PULSE 87; RESP 20; TEMP 98; O2SAT 95
[2017-11-27] MEDS: Budesonide 0.5 mg/2 ml Inhal Susp UD IH SCH (08:10)
[2017-11-27] MEDS: Arformoterol 15 mcg/2 ml Inh Sol IH SCH (08:10)
[2017-11-27] MEDS: Nystatin 100,000 Units/ml Oral Susp 5 ml UD PO SCH (09:25)
[2017-11-27] MEDS: Levothyroxine 100 mcg (0.1 mg) Inj IVP SCH (09:28)
[2017-11-27] MEDS: oxyCODONE 5 mg Immediate Release Tab PO PRN (09:31)
[2017-11-27] MEDS: Lidocaine 5% Oint(35 gm) TOP SCH (09:36)
[2017-11-27] MEDS: Silver Sulfadiazine 1% Cream (25 gm) TP SCH (09:36)
[2017-11-27] MEDS: Prostat 15 g packet GT SCH (10:21)
[2017-11-27] MEDS ORDERED: Fluconazole IV 200mg/100 ml NS 100 MG in Premixed IV 1 EA IVPB SCH (10:45)
--- NOTE | 2017-11-27 11:44 | PN ---
DATE: 11/27/2017 PULMONARY PROGRESS NOTE REFERRING PHYSICIAN: Gary Zapata MD. SUBJECTIVE: He is out of bed to chair. Night was unremarkable. Feeling better. Cough is decreased. No nausea. No vomiting, diarrhea, leg pain, leg swelling. OBJECTIVE: GENERAL: In no acute distress. VITAL SIGNS: Temp is 98, heart rate is 87, respiratory rate is 20, blood pressure 138/71, pulse ox 95% on 3 L nasal cannula. HEENT: Moist mucous membrane. No ulcer or thrush noted. NECK: Supple. No JVD. LUNGS: Have a fair crackles at bases. HEART: S1 and S2. ABDOMEN: Soft, nontender and nondistended. G-tube area looks okay EXTREMITIES: There is no edema. NEUROLOGICAL: Awake and alert. Follows simple command. LABORATORY DATA: Shows hemoglobin 10.5, hematocrit 32.0, WBC 19, platelet is 325. Sodium 129, potassium 4, chloride 93, bicarbonate 31, BUN 35, creatinine 0.7, glucose 120, calcium is 8.4, AST 51, ALT 116, alk phos is 71, albumin is 2.5. MEDICATIONS: He is on Amitiza 24 mcg G-tube twice a day, Brovana inhaled twice a day, DuoNeb every 3 hours p.r.n., Ecotrin 81 mg daily, Diflucan 100 mg daily, lidocaine patch at affected area, metoprolol tartrate 25 mg twice a day, meropenem 1 g IV every 8 hours, morphine 5 mg every 4 hours p.r.n., Neurontin 400 mg twice a day, oxycodone immediate release 5 mg every 6 hours p.r.n., Plavix 75 mg daily, prednisone 10 mg daily, Protonix 40 mg daily, Pulmicort inhaled twice a day, Synthroid 50 mcg IV daily, Tylenol is at 50 mg three times a day p.r.n., Tylenol p.r.n., vancomycin 750 mg every 12 hours. IMPRESSION AND PLAN: Laryngeal carcinoma with metastatic disease, had been on radiation and chemotherapy; chronic obstructive lung disease; hypertension; hyponatremia; status post cellulitis of chest wall secondary to radiation therapy; oropharyngeal dysphagia requiring gastrostomy tube, on a modified diet; right lower lobe pneumonia. Pulmonary point of view, doing okay. Continue antibiotics. Aspiration precaution. Keep head at 45 degrees. Gastric prophylaxis. Sequential compression device to lower extremity. Taper off steroid. Thank you and we will follow with you. Masoud Moyer MD
--- NOTE | 2017-11-27 11:56 | CP.PCM.PN ---
Subjective - Date & Time of Evaluation Date of Evaluation: 11/27/17 Time of Evaluation: 10:10 - Subjective Subjective: Comfortable in bed, no fevers, not in distress. Had oral thrush noted yesterday , started on Diflucan yesterday and patient is feeling better. Objective - Vital Signs/Intake and Output Vital Signs (last 24 hours): Temp Pulse Resp BP Pulse Ox 97.6 F 53 L 19 82/47 L 96 11/26/17 16:00 11/26/17 16:00 11/26/17 16:00 11/26/17 16:00 11/26/17 16:00 Intake and Output: 11/26/17 11/27/17 18:59 06:59 Output Total 350 Balance -350 - Medications Medications: Current Medications Acetaminophen (Tylenol 650mg/20.3ml Solution Ud) 640 mg GT Q4 PRN PRN Reason: Fever >100.4 F Albuterol/Ipratropium (Duoneb 3 Mg/0.5 Mg (3 Ml) Ud) 3 ml IH Q3H PRN PRN Reason: Shortness of Breath Arformoterol Tartrate (Brovana) 15 mcg IH [id number] [facility] Last Admin: 11/26/17 19:26 Dose: 15 mcg Aspirin (Ecotrin) 81 mg PO DAILY [facility] Last Admin: 11/26/17 09:17 Dose: 81 mg Budesonide (Pulmicort Respules) 0.5 mg IH [id number] [facility] Last Admin: 11/26/17 19:26 Dose: 0.5 mg Clopidogrel Bisulfate (Plavix) 75 mg PO DAILY [facility] Last Admin: 11/26/17 09:17 Dose: 75 mg Gabapentin (Neurontin) 400 mg PO BID [facility] Last Admin: 11/26/17 17:14 Dose: 400 mg Meropenem (Merrem Iv 1 Gm Premix) 50 mls @ 100 mls/hr IVPB Q8 [facility] PRN Reason: Protocol Stop: 11/29/17 06:31 Last Admin: 11/27/17 05:04 Dose: 100 mls/hr Fluconazole 100 mg/ (Miscellaneous) 50 mls @ 100 mls/hr IVPB DAILY [facility] PRN Reason: Protocol Last Admin: 11/26/17 17:14 Dose: 100 mls/hr Vancomycin HCl (Vancomycin 750 Mg In Ns) 750 mg in 250 mls @ 167 mls/hr IVPB Q12H [facility] PRN Reason: Protocol Ketorolac Tromethamine (Toradol) 15 mg IVP TID PRN PRN Reason: Pain, severe (8-10) Last Admin: 11/27/17 05:01 Dose: 15 mg Levothyroxine Sodium (Synthroid) 50 mcg IVP DAILY [facility] Last Admin: 11/26/17 09:17 Dose: 50 mcg Lidocaine (Lidocaine 5%) 0 gm TOP BID [facility] Last Admin: 11/26/17 17:22 Dose: 1 applic Metoprolol Tartrate (Lopressor) 25 mg PO BRKDIN [facility] Last Admin: 11/26/17 17:14 Dose: Not Given Morphine Sulfate (Morphine) 5 mg IVP Q4H PRN PRN Reason: Pain, severe (8-10) Last Admin: 11/27/17 03:25 Dose: 5 mg Non-Formulary Medication (Amitiza) 24 mg PEG BID [facility] Last Admin: 11/26/17 17:20 Dose: Not Given Nystatin (Nystatin Oral Susp) 5 ml PO QID [facility] Last Admin: 11/26/17 21:09 Dose: 5 ml Oxycodone HCl (Oxycodone Immediate Release Tab) 5 mg PO Q6H PRN PRN Reason: Pain, moderate (4-7) Last Admin: 11/26/17 21:08 Dose: 5 mg Pantoprazole Sodium (Protonix Susp) 40 mg PO 0600 [facility] Last Admin: 11/27/17 05:04 Dose: 40 mg Prednisone (Prednisone Tab) 10 mg PO DAILY [facility] Saliva Substitute (Saliva Substitute) 0 ml PO Q2 PRN PRN Reason: DRY MOUTH Silver Sulfadiazine (Silvadene 1% 25 Gm) 0 gm TP BID [facility] Last Admin: 11/26/17 17:21 Dose: 25 gm - Labs Labs: 11/26/17 16:33 11/26/17 05:30 PT 13.6 SECONDS (9.4-12.5) H 11/21/17 17:28 INR 1.19 (0.93-1.08) H 11/21/17 17:28 APTT 29.9 Seconds (25.1-36.5) 11/21/17 17:28 - Constitutional Appears: Cachectic, Chronically Ill - Head Exam Head Exam: NORMAL INSPECTION - ENT Exam ENT Exam: Mucous Membranes Moist - Neck Exam Neck Exam: absent: Meningismus - Respiratory Exam Respiratory Exam: Decreased Breath Sounds - Cardiovascular Exam Cardiovascular Exam: +S1, +S2 - GI/Abdominal Exam GI & Abdominal Exam: Soft. 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
[2017-11-27] MEDS ORDERED: Vancomycin 750mg 750 MG/250 ML BAG IVPB SCH (12:00)
--- NOTE | 2017-11-27 13:46 | PN ---
DATE: SUBJECTIVE: The patient is currently seen sitting up in bed. He remains on tube feedings. The patient is scheduled for discharge later today. His sodium level had dipped slightly lower at 129. 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 MEDICATIONS: Medication list reviewed. The patient is currently on Amitiza, Brovana, DuoNeb, Ecotrin, Diflucan, lidocaine, Lopressor, meropenem, morphine, Neurontin, oxycodone, Plavix, prednisone, Protonix, Pulmicort, saliva substitute, Silvadene, Synthroid, Toradol, Tylenol p.r.n., and vancomycin. OBJECTIVE: INTAKE/OUTPUT: Intake 1170, output 350. VITAL SIGNS: Blood pressure 138/71, pulse of 87, temperature 98 with a respiratory rate of 20. HEENT: Normocephalic, atraumatic. Conjunctivae are pale. NECK: Supple. No neck vein distention. CHEST: Clear to auscultation and percussion. No rales, rhonchi, or wheezing. CARDIOVASCULAR: Shows a regular rate and rhythm without audible murmurs, rubs, or gallops. ABDOMEN: Soft. Nontender. Positive PEG tube. Bowel sounds are normal. EXTREMITIES: Show no lower extremity cyanosis, clubbing, or edema. The patient does presently have an indwelling Luna catheter. LABORATORY DATA AND IMAGING: CBC: White blood cell count today 19.1 with a hemoglobin of 10.5, platelet count is 325,000. Chemistries show a sodium down to 129, this is stable for him. Potassium 4, chloride 93 with a CO2 of 31. BUN 35 with creatinine of 0.7. These numbers are within his baseline range. Glucose is 120. Calcium of 8.4. Phosphorus and magnesium levels are normal. Albumin level was 2.5. Vancomycin trough level was 10.4. Microbiology: All cultures were negative to date. ASSESSMENT: 1. Status post aspiration pneumonia. The patient is completing a course of antibiotic therapy. 2. Chronic hyponatremia. 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 The patient in the past had received tolvaptan. My request is that the water flushes with his PEG tube feedings are kept to minimum. 3. History of syndrome of inappropriate antidiuretic hormone, currently stable. 4. History of mild hypothyroidism. The patient will continue with thyroid replacement therapy under the guidance of Endocrinology. 5. History of hypertension. Blood pressure is controlled on present medical therapy. 6. Status post recent episode of cellulitis of the neck and left anterior chest wall. This has improved significantly. This is secondary to radiation therapy with superinfection. 7. History of chronic obstructive pulmonary disease secondary to long history of cigarette smoking. 8. History of hyperlipidemia, controlled with diet and statin therapy. 9. History of anemia in part secondary to his underlying malignancy. PLAN: 1. As discussed with staff on 3-R. From my standpoint, the patient may be discharged home. 2. The patient has had excellent responses to tolvaptan, but this medication would not be possible in the outpatient setting because of the cost. 3. Minimize water flushes with his PEG tube feedings. 4. Strongly suggest removal of the Luna prior to discharge. Camilo Trammell MD
--- NOTE | 2017-11-27 14:00 | CP.PCM.DIS ---
Provider - Provider Date of Admission: 11/21/17 18:40 Attending physician: Gary Zapata MD Primary care physician: José Antonio Keith MD Time Spent in preparation of Discharge (in minutes): 45 Hospital Course - Lab Results Lab Results: Micro Results 11/23/17 16:45 Nose MRSA Culture (Admit) - Final MRSA NOT DETECTED 11/22/17 12:30 Urine Urine Culture - Final No Growth (<1,000 CFU/ML) Most Recent Lab Values WBC 19.1 10^3/ul (4.5-11.0) H 11/27/17 06:10 RBC 3.60 10^6/uL (3.5-6.1) 11/27/17 06:10 Hgb 10.5 g/dL (14.0-18.0) L 11/27/17 06:10 Hct 32.0 % (42.0-52.0) L 11/27/17 06:10 MCV 88.9 fl (80.0-105.0) 11/27/17 06:10 MCH 29.2 pg (25.0-35.0) 11/27/17 06:10 MCHC 32.8 g/dl (31.0-37.0) 11/27/17 06:10 RDW 14.7 % (11.5-14.5) H 11/27/17 06:10 Plt Count 325 10^3/uL (120.0-450.0) 11/27/17 06:10 MPV 9.4 fl (7.0-11.0) 11/27/17 06:10 Gran % 83.5 % (50.0-68.0) H 11/26/17 05:30 Lymph % (Auto) 6.4 % (22.0-35.0) L 11/26/17 05:30 [place] % (Auto) 6.4 % (1.0-6.0) H 11/26/17 05:30 Eos % (Auto) 3.6 % (1.5-5.0) 11/26/17 05:30 Baso % (Auto) 0.1 % (0.0-3.0) 11/26/17 05:30 Gran # 15.22 (1.4-6.5) H 11/26/17 05:30 Lymph # (Auto) 1.2 (1.2-3.4) 11/26/17 05:30 [place] # (Auto) 1.2 (0.1-0.6) H 11/26/17 05:30 Eos # (Auto) 0.7 (0.0-0.7) 11/26/17 05:30 Baso # (Auto) 0.01 K/mm3 (0.0-2.0) 11/26/17 05:30 Neutrophils % (Manual) 98 % (50.0-70.0) H 11/22/17 06:05 Band Neutrophils % 1 % (0-2) 11/22/17 06:05 Lymphocytes % (Manual) 1 % (22.0-35.0) L 11/22/17 06:05 Monocytes % (Manual) TEST NOT PERFORMED 11/22/17 06:05 Platelet Evaluation Normal (NORMAL) 11/22/17 06:05 Poikilocytosis (manual Slight 11/22/17 06:05 Microcytosis (manual) Slight 11/22/17 06:05 Ana María Cells Slight 11/22/17 06:05 ESR 37 mm/hr (0.00-15.0) H 11/26/17 16:33 PT 13.6 SECONDS (9.4-12.5) H 11/21/17 17:28 INR 1.19 (0.93-1.08) H 11/21/17 17:28 APTT 29.9 Seconds (25.1-36.5) 11/21/17 17:28 pO2 142 mm/Hg (30-55) H 11/21/17 21:15 VBG pH 7.48 (7.32-7.43) H 11/21/17 21:15 VBG pCO2 38.0 (40-60) L 11/21/17 21:15 VBG HCO3 28.3 mmol/l (21-28) H 11/21/17 21:15 VBG Total CO2 29.5 mmol.L (22-28) H 11/21/17 21:15 VBG O2 Sat (Calc) 99.7 % (40-65) H 11/21/17 21:15 VBG Base Excess 4.6 mmol/L (0.0-2.0) H 11/21/17 21:15 VBG Potassium 3.1 mmol/L (3.6-5.2) L 11/21/17 21:15 Sodium 131.0 mmol/L (132-148) L 11/21/17 21:15 Chloride 98.0 mmol/L (98-107) 11/21/17 21:15 Glucose 320 mg/dl (75-110) H 11/21/17 21:15 Lactate 3.8 mmol/L (0.7-2.1) H 11/21/17 21:15 FiO2 21.0 % 11/21/17 21:15 Sodium 129 mmol/L (132-148) L 11/27/17 06:10 Potassium 4.0 mmol/L (3.6-5.0) 11/27/17 06:10 Chloride 93 mmol/L (98-107) L 11/27/17 06:10 Carbon Dioxide 31 mmol/L (21-33) 11/27/17 06:10 Anion Gap 9 (10-20) L 11/27/17 06:10 BUN 35 mg/dL (7-21) H 11/27/17 06:10 Creatinine 0.7 mg/dl (0.8-1.5) L 11/27/17 06:10 Est GFR ( Amer) > 60 11/27/17 06:10 Est GFR (Non-Af Amer) > 60 11/27/17 06:10 Random Glucose 120 mg/dL (70-110) H 11/27/17 06:10 Calcium 8.4 mg/dL (8.4-10.5) 11/27/17 06:10 Phosphorus 3.1 mg/dL (2.5-4.5) 11/26/17 05:30 Magnesium 2.0 mg/dL (1.7-2.2) 11/26/17 05:30 Total Bilirubin 0.3 mg/dL (0.2-1.3) 11/27/17 06:10 AST 51 U/L (17-59) 11/27/17 06:10 ALT 116 U/L (7-56) H 11/27/17 06:10 Alkaline Phosphatase 71 U/L (38-126) 11/27/17 06:10 Troponin I < 0.01 ng/mL 11/21/17 17:28 C-Reactive Protein 19.90 mg/L (0.0-9.9) H 11/26/17 05:30 NT-Pro-B Natriuret Pep 853 pg/mL (0-450) H 11/21/17 17:28 Total Protein 5.2 g/dL (5.8-8.3) L 11/27/17 06:10 Albumin 2.5 g/dL (3.0-4.8) L 11/27/17 06:10 Globulin 2.8 gm/dL 11/27/17 06:10 Albumin/Globulin Ratio 0.9 (1.1-1.8) L 11/27/17 06:10 Procalcitonin 0.39 NG/ML (0.19-0.49) 11/21/17 17:28 TSH 3rd Generation 5.29 mIU/mL (0.46-4.68) H 11/21/17 17:28 Venous Blood Potassium 3.1 mmol/L (3.6-5.2) L 11/21/17 21:15 Urine Color Yellow (YELLOW) 11/22/17 12:30 Urine Appearance Clear (CLEAR) 11/22/17 12:30 Urine pH 6.5 (4.7-8.0) 11/22/17 12:30 Ur Specific Helen 1.015 (1.005-1.035) 11/22/17 12:30 Urine Protein Trace mg/dL (<30 mg/dL) H 11/22/17 12:30 Urine Glucose (UA) 100 mg/dL (NEGATIVE) H 11/22/17 12:30 Urine Ketones Negative mg/dL (NEGATIVE) 11/22/17 12:30 Urine Blood Negative (NEGATIVE) 11/22/17 12:30 Urine Nitrate Negative (NEGATIVE) 11/22/17 12:30 Urine Bilirubin Negative (NEGATIVE) 11/22/17 12:30 Urine Urobilinogen 0.2 E.U./dL (<1 E.U./dL) 11/22/17 12:30 Ur Leukocyte Esterase Negative Ellis/uL (NEGATIVE) 11/22/17 12:30 Urine RBC 1 - 3 /hpf (0-2) 11/22/17 12:30 Urine WBC Negative /hpf (0-6) 11/22/17 12:30 Vancomycin Trough 10.4 ug/mL (5.0-10.0) H 11/26/17 05:30 Influenza Typ A,B (EIA) Negative for flu a/b (NEGATIVE) 11/21/17 17:50 Ur L.pneumophila Ag Negative (NEGATIVE) 11/22/17 12:30 - Hospital Course Hospital Course: 87 yo male with PMH of 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 CXR on admission was suspicious for right lower lobe infiltrate, concerning for HCAP vs aspiration pneumonia. CT chest notable for RLL consolidation consistent with pneumonia, longstanding upper lobe fibrosis, and dilated pulm arteries consistent with pulm HTN. Patient was started on antibiotics. ID was consulted, recommended antibiotics for 7 days. Blood and urine cultures were negative and urine legionella negative. Procalcitonin was low. Machine Or Machinery Mechanic was consulted for tube feeding and swallow evaluation. Modified barium swallow studied showed moderate pharyngeal dysphagia with no signs of aspiration. Diet of advanced bite sized consistence with thin liquids was recommended. GI was consulted, recommended tubes feeds to be changed to 30cc from 6am to 6pm, and 50cc from 6 pm to 6 am of TwoCal. Patient also reported shoulder pain. Cervical spine xray showed degenerative changes, shoulder xray official read no acute disease. Orthopedic was consulted, Recommended depo- medril and marcaine injection. Patient was also placed on pain medication. His chronic conditions were also managed. Nephrology was also consulted for hypernatremia. Neurology consulted for neuropathic pain, medications were adjusted. On flexible laryngoscopy patient was found to have oral thrush. Patient WBC increased, possible due to the oral thrush or due to steroid use. Antifungal medications were changed to diflucan for 5 days. Case ramila consulted for placement in to [facility]. Discharge Exam - Head Exam Head Exam: NORMAL INSPECTION - Eye Exam Eye Exam: Normal appearance - Respiratory Exam Respiratory Exam: NORMAL BREATHING PATTERN, UNREMARKABLE. absent: Rales, Rhonchi, Wheezes, Respiratory Distress - Cardiovascular Exam Cardiovascular Exam: REGULAR RHYTHM, +S1, +S2. absent: Tachycardia, Diastolic murmur, Systolic Murmur - GI/Abdominal Exam GI & Abdominal Exam: Soft. absent: Distended, Tenderness - Neurological Exam Neurological exam: Alert, Oriented x3 - Skin Skin Exam: Dry, Normal Color, Warm Discharge Plan - Discharge Medications Prescriptions: Meropenem IV 1 gm in NS [Merrem IV 1 gm Premix] 1 gm IVPB Q8 1 Days bag Vancomycin/0.9 % Sod Chloride [Vanco 750 mg/250 ml-0.9% NaCl] 750 mg IV Q12 1 Days plast..bag - Follow Up Plan Condition: GUARDED Disposition: TRANSF TO SNF Instructions: Laryngeal Cancer, Exacerbation of COPD (DC) Additional Instructions: PATIENT GOING TO [facility]. Follow up with Dr. Smith in 2 weeks Referrals: Mustapha Smith MD [Staff Provider] -
--- NOTE | 2017-11-27 17:59 | CP.PCM.PN ---
Subjective - Date & Time of Evaluation Date of Evaluation: 11/27/17 Time of Evaluation: 11:30 - Subjective Subjective: Seen and examined at the bedside earlier today, chart was reviewed. Patient on feeding at 30 cc an hour and tolerating. No high residuals reported or acute overnight events. Patient complains of right shoulder discomfort no acute distress. He tolerated some pancreatic ducts, coffee and applesauce this morning. Reports having 3 solid bowel movements yesterday no reports of any bleeding. Objective - Vital Signs/Intake and Output Vital Signs (last 24 hours): Temp Pulse Resp BP Pulse Ox 98 F 87 20 138/71 95 11/27/17 07:53 11/27/17 08:23 11/27/17 07:53 11/27/17 08:23 11/27/17 07:53 Intake and Output: 11/27/17 11/27/17 06:59 18:59 Intake Total 1170 Output Total 350 Balance 820 - Medications Medications: Current Medications Acetaminophen (Tylenol 650mg/20.3ml Solution Ud) 640 mg GT Q4 PRN PRN Reason: Fever >100.4 F Albuterol/Ipratropium (Duoneb 3 Mg/0.5 Mg (3 Ml) Ud) 3 ml IH Q3H PRN PRN Reason: Shortness of Breath Arformoterol Tartrate (Brovana) 15 mcg IH [id number] [facility] Last Admin: 11/27/17 08:10 Dose: 15 mcg Aspirin (Ecotrin) 81 mg PO DAILY [facility] Last Admin: 11/27/17 09:24 Dose: 81 mg Budesonide (Pulmicort Respules) 0.5 mg IH [id number] [facility] Last Admin: 11/27/17 08:10 Dose: 0.5 mg Clopidogrel Bisulfate (Plavix) 75 mg PO DAILY [facility] Last Admin: 11/27/17 09:24 Dose: 75 mg Gabapentin (Neurontin) 400 mg PO BID [facility] Last Admin: 11/27/17 09:24 Dose: 400 mg Meropenem (Merrem Iv 1 Gm Premix) 50 mls @ 100 mls/hr IVPB Q8 [facility] PRN Reason: Protocol Stop: 11/29/17 06:31 Last Admin: 11/27/17 13:07 Dose: 100 mls/hr Vancomycin HCl (Vancomycin 750 Mg In Ns) 750 mg in 250 mls @ 167 mls/hr IVPB Q12H [facility] PRN Reason: Protocol Last Admin: 11/27/17 12:05 Dose: 167 mls/hr Fluconazole 100 mg/ (Miscellaneous) 50 mls @ 100 mls/hr IVPB DAILY [facility] PRN Reason: Protocol Stop: 11/30/17 10:46 Last Admin: 11/27/17 11:00 Dose: Not Given Ketorolac Tromethamine (Toradol) 15 mg IVP TID PRN PRN Reason: Pain, severe (8-10) Last Admin: 11/27/17 05:01 Dose: 15 mg Levothyroxine Sodium (Synthroid) 50 mcg IVP DAILY [facility] Last Admin: 11/27/17 09:28 Dose: 50 mcg Lidocaine (Lidocaine 5%) 0 gm TOP BID [facility] Last Admin: 11/27/17 09:36 Dose: 1 applic Metoprolol Tartrate (Lopressor) 25 mg PO BRKDIN [facility] Last Admin: 11/27/17 08:23 Dose: 25 mg Morphine Sulfate (Morphine) 5 mg IVP Q4H PRN PRN Reason: Pain, severe (8-10) Last Admin: 11/27/17 15:39 Dose: 5 mg Non-Formulary Medication (Amitiza) 24 mg PEG BID [facility] Last Admin: 11/26/17 17:20 Dose: Not Given Oxycodone HCl (Oxycodone Immediate Release Tab) 5 mg PO Q6H PRN PRN Reason: Pain, moderate (4-7) Last Admin: 11/27/17 09:31 Dose: 5 mg Pantoprazole Sodium (Protonix Susp) 40 mg PO 0600 [facility] Last Admin: 11/27/17 05:04 Dose: 40 mg Prednisone (Prednisone Tab) 10 mg PO DAILY [facility] Last Admin: 11/27/17 09:24 Dose: 10 mg Saliva Substitute (Saliva Substitute) 0 ml PO Q2 PRN PRN Reason: DRY MOUTH Silver Sulfadiazine (Silvadene 1% 25 Gm) 0 gm TP BID [facility] Last Admin: 11/27/17 09:36 Dose: 1 gm - Labs Labs: 11/27/17 06:10 11/27/17 06:10 PT 13.6 SECONDS (9.4-12.5) H 11/21/17 17:28 INR 1.19 (0.93-1.08) H 11/21/17 17:28 APTT 29.9 Seconds (25.1-36.5) 11/21/17 17:28 - Constitutional Appears: No Acute Distress - Eye Exam Eye Exam: Normal appearance. absent: Scleral icterus - ENT Exam ENT Exam: Mucous Membranes Moist - Neck Exam Neck Exam: Normal Inspection - Respiratory Exam Respiratory Exam: NORMAL BREATHING PATTERN. absent: Respiratory Distress - Cardiovascular Exam Cardiovascular Exam: +S1, +S2 - GI/Abdominal Exam GI & Abdominal Exam: Soft, Normal Bowel Sounds. absent: Guarding, Tenderness, Rebound Additional comments: PEG in place, no erythema or discharge site nontender - Extremities Exam Extremities Exam: Pedal Edema. absent: Calf Tenderness - Neurological Exam Neurological Exam: Alert, Awake, Oriented x3 - Skin Skin Exam: Dry, Warm Assessment and Plan - Assessment and Plan (Free Text) Assessment: ASSESSMENT: Respiratory distress improved Sepsis, s/p CXR reporting right lower lobe infiltrate suspected aspiration pneumonia Laryngeal cancer, s/p radiation and chemotherapy Dysphagia secondary to above status post PEG Improved shortness of breath CAD, status post CABG Hypertension Constipation: on Amitiza Plan: on dysphagia diet, advised to take small amount of food and eat slowly PEG feedings R 6 AM to 6 PM at 30 cc an hour, 6 PM to 6 AM at 50 mL spelled our of TwoCal. On aspirin and Plavix on Protonix 40 daily On IV antibiotics on prednisone and Solu-Medrol On home med Amitiza As per oncology/pulmonology and ID Seen and discussed with Dr. Foreman.
--- NOTE | 2017-11-28 10:03 | PQF MALNUT ---
11/28/17 Dr. Zapata, Malnutrition is documented on consults of 11/22, progress notes of 11/23, 11/24, and 11/25. Please specify type and severity of malnutrition, as listed below. Thank you. Clarification of your documentation is requested to better reflect the severity of illness and intensity of treatment of your patient. Indicators present [] Cachexia (due to severe malnutrition) [] Albumin < 2.8 [] Decreased Pre-albumin [] Dietary Consult [] Provider documentation reflects BMI of: []_ [] Low serum proteins [] Documented weight loss [x] Inability to consume adequate caloric intake [x] Anorexic [] Other: [] Location in the medical record that reflects the above clinical findings: [] Treatment Provided: [] PHYSICIAN'S RESPONSE Based on your medical judgment of the clinical indicators outlined above, are you treating this patient for a known or suspected: Type of Malnutrition Severity [] Mild [x] Moderate [] Severe [x] Protein calorie [] Mild [x] Moderate [] severe [] Other, please indicate: []_ [] If Unable to Determine, please check the box, sign and date. Present On Admission (POA) Indicator: [x] Present at the time of admission [] Not present at the time of admission [] Clinically Undetermined In responding to this query, please exercise your independent professional judgment. The fact that a question is asked does not imply that any particular answer is desired or expected. Thank you for your clarification on this documentation. If you have any questions please call:[ ] * Thank you, [ ] kitchen hand Malnutrition Malnutrition results from an imbalance between the body's intake of nutrients and the body's use of nutrients to fuel energy expenditure. Malnutrition may be described as mild, moderate or severe. There are variations in clinical indicators, lab values and risk factors with each type and degree. When reviewing the nutritional status of the client, the entire clinical picture should be assessed and taken into consideration rather than a focus on a single laboratory value. Mild Malnutrition: patient's weight is noted at 85-95% of normal body weight; BMI 18-18.9; serum albumin 3.0-3.4; total lymphocyte count [id number]. Moderate Malnutrition: patient's weight is noted at 75-85% of normal body weight ; BMI 16-17.9; serum albumin 2.4-3.0; total lymphocyte count 800-1500. Severe Malnutrition: patient's weight is noted at <75% of normal body weight, BMI <16, serum albumin <2.4, total lymphocyte count <800, abnormally low VLDL/ LDL levels, creatinine <0.6, BUN <8, cholesterol <160. Other clinical indicators include: loss of subq fat, muscle wasting of the extremities, skin lesions, decubitus ulcers, hair loss, lethargy, constipation, decreased pulse/ respiratory rates, relative hypotension, hepatomegaly d/t fat infiltration, poor wound healing.~~~~~~ Risk: poor intake d/t food avoidance or NPO status for >7 days, protracted nutritional losses from malabsorption states, hypermetabolic state such as sepsis, prolonged fever, extensive trauma or bee, alcohol/drug abuse, advanced age, CKD, trouble chewing or swallowing, some medications, depression/ social isolation, special diets such as low protein Treatment: dietary consultation, protein-calorie dietary supplementation, daily weights, PEG tube, psychiatric consultation, appetite stimulants (Megace). [employer] Principles of Internal Medicine, 17th edition, chapters 9, 72 and 234. The [employer] Nutritional Support Core Curriculum, 2007 MTDD
== END 2017-11-27 16:00 | DRG 871 ==
LOC: ED 16:54 → ERH 18:40 → 2RNO 22:03 → 3RNO 11-23 18:56
PROVIDERS: ADMIT Family Medicine; ATTEND Family Medicine
DX: A41.9 Sepsis, unspecified organism (principal); J69.0 Pneumonitis due to inhalation of food and vomit; B37.0 Candidal stomatitis; B37.89 Other sites of candidiasis; C34.90 Malignant neoplasm of unspecified part of unspecified bronchus or lung; E22.2 Syndrome of inappropriate secretion of antidiuretic hormone; R64 Cachexia; L03.221 Cellulitis of neck; Z68.1 Body mass index [BMI] 19.9 or less, adult; B02.29 Other postherpetic nervous system involvement; E44.0 Moderate protein-calorie malnutrition; C32.9 Malignant neoplasm of larynx, unspecified; B95.62 Methicillin resistant Staphylococcus aureus infection as the cause of diseases classified elsewhere; D64.9 Anemia, unspecified; E78.5 Hyperlipidemia, unspecified; E86.0 Dehydration; E87.6 Hypokalemia; I10 Essential (primary) hypertension; I25.10 Atherosclerotic heart disease of native coronary artery without angina pectoris; I27.20 Pulmonary hypertension, unspecified; J44.9 Chronic obstructive pulmonary disease, unspecified; K59.00 Constipation, unspecified; L59.8 Other specified disorders of the skin and subcutaneous tissue related to radiation; M75.92 Shoulder lesion, unspecified, left shoulder; R13.12 Dysphagia, oropharyngeal phase; R13.13 Dysphagia, pharyngeal phase; K20.8 Other esophagitis; Y84.2 Radiological procedure and radiotherapy as the cause of abnormal reaction of the patient, or of later complication, without mention of misadventure at the time of the procedure; Z79.82 Long term (current) use of aspirin; Z79.899 Other long term (current) drug therapy; Z85.850 Personal history of malignant neoplasm of thyroid; Z86.14 Personal history of Methicillin resistant Staphylococcus aureus infection; Z87.891 Personal history of nicotine dependence; Z92.21 Personal history of antineoplastic chemotherapy; Z92.3 Personal history of irradiation; Z93.1 Gastrostomy status; Z95.1 Presence of aortocoronary bypass graft; Z95.5 Presence of coronary angioplasty implant and graft; Z96.612 Presence of left artificial shoulder joint; E89.0 Postprocedural hypothyroidism

== ENCOUNTER 2018-02-19 12:29 | Day surgery (SDC) | payer MEDICARE ==
[2018-02-19 14:52] VITALS: BP 135/74; PULSE 89; RESP 16; TEMP 98; O2SAT 100
== END 2018-02-19 15:36 | disposition home or self-care (01) ==
LOC: ENDO 12:29 → OPSURG 12:29
PROVIDERS: ATTEND Internal Medicine Gastroenterology
DX: Z43.1 Encounter for attention to gastrostomy (principal)

== ENCOUNTER 2018-03-30 16:51 | Inpatient (IN) | payer MEDICARE ==
[2018-03-30] MEDS ORDERED: Sodium Chloride 0.9% 500 ML IV STA (17:35)
[2018-03-30] MEDS ORDERED: metroNIDAZOLE IV 500 mg/100 ml 500 MG/100 ML BAG IVPB STA (17:46)
[2018-03-30] MEDS ORDERED: Vancomycin 25 MG/ML PO STA (17:46)
--- NOTE | 2018-03-30 18:01 | ED PDOC ---
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 Patient has been recently screened positive for C.diff and has been started on Flagyl. Patient informs multiple episodes of diarrhea associated with mild abdominal pain. Patient denies any fever, chills, chest pain, shortness of breath, headache, dizziness, neck pain, back pain, or any other complaints. PMD: Dr. Montero Time/Duration: Prior to Arrival Symptom Onset: Gradual Symptom Course: Unchanged Quality: Aching Activities at Onset: Light Context: Other ([facility]) Past Medical History - Provider Review Nursing Documentation Reviewed: Yes - Infectious Disease Hx of Infectious Diseases: None - Cardiac Hx Cardiac Disorders: Yes Hx Hypertension: Yes - Pulmonary Hx Chronic Obstructive Pulmonary Disease (COPD): Yes - Neurological Hx Neurological Disorder: No - HEENT Hx HEENT Disorder: Yes Hx Difficulty Chewing: Yes Other/Comment: THROAT CA - Renal Hx Renal Disorder: No - Endocrine/Metabolic Hx Endocrine Disorders: Yes Hx Hypothyroidism: Yes - Hematological/Oncological Hx Blood Transfusions: No - Integumentary Hx Dermatological Disorder: No - Musculoskeletal/Rheumatological Hx Falls: No - Gastrointestinal Hx Gastrointestinal Disorders: Yes (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) - Genitourinary/Gynecological Hx Genitourinary Disorders: No - Psychiatric Hx Psychophysiologic Disorder: No Hx Substance Use: No - Surgical History Hx Joint Replacement: Yes (left shldr) Hx Musculoskeletal Surgery: Yes (R/L Foot, R-ankle) Other/Comment: G TUBE, PORT R UPPER CHEST. Larynectomy. Bronoscopy. Right Shldr rotator cuff repair. Deviated septum repair - Anesthesia Hx Anesthesia Reactions: No Hx Malignant Hyperthermia: No - Suicidal Assessment Feels Threatened In Home Enviroment: No Family/Social History - Physician Review Nursing Documentation Reviewed: Yes Family/Social History: No Known Family HX Smoking Status: Never Smoked Hx Alcohol Use: Yes Hx Substance Use: No Allergies/Home Meds Allergies/Adverse Reactions: Allergies No Known Allergies Allergy (Verified 03/30/18 16:59) Home Medications: Home Meds Medication Instructions Recorded Confirmed Pravastatin Sodium [Pravachol] 20 mg PO DAILY 11/21/17 03/30/18 Ultra Coq10 100 mg PO DAILY 11/21/17 03/30/18 Famotidine [Pepcid] 20 mg PO HS 02/19/18 03/30/18 Gabapentin [Neurontin] 800 mg PO TID 02/19/18 03/30/18 Lactobacillus Acidophilus 1 each PO BID 02/19/18 03/30/18 [Acidophilus Lactobacillus] Levothyroxine Sodium [Levoxyl] 50 mcg PO DAILY 02/19/18 03/30/18 Lidocaine 5% [Lidoderm] 1 patch TP DAILY 02/19/18 03/30/18 Mirtazapine [Remeron] 15 mg PO HS 02/19/18 03/30/18 Multivitamin [Multivitamins] 1 each PO DAILY 02/19/18 03/30/18 Protein Supplement [Prosource] 275 gm PO DAILY 02/19/18 03/30/18 fentaNYL 25 mcg/hr [Duragesic 25 mcg TD Q3D 02/19/18 03/30/18 Patch 25 mcg/hr] Review of Systems - Physician Review All systems were reviewed & negative as marked: Yes - Review of Systems Constitutional: absent: Fevers Respiratory: absent: SOB Cardiovascular: absent: Chest Pain Gastrointestinal: Abdominal Pain, Diarrhea, Nausea, Vomiting, Appetite Changes Musculoskeletal: absent: Back Pain, Neck Pain Neurological: absent: Headache, Dizziness Physical Exam Vital Signs Reviewed: Yes Vital Signs Temp Pulse Pulse Resp BP Pulse Ox 03/30/18 22:39 98.4 F 91 H 20 150/71 99 03/30/18 22:28 98.4 F 85 85 16 140/87 03/30/18 19:06 85 16 140/87 98 03/30/18 17:10 98.4 F 85 18 149/98 H 96 Temperature: Afebrile Blood Pressure: Normal Pulse: Regular Respiratory Rate: Normal Appearance: Positive for: Ill-Appearing (chronically ill-appearing) Pain Distress: None Mental Status: Positive for: Alert and Oriented X 3 - Systems Exam Head: Present: Atraumatic, Normocephalic Pupils: Present: PERRL Extroacular Muscles: Present: EOMI Conjunctiva: Present: Normal Neck: Present: Normal Range of Motion Respiratory/Chest: Present: Clear to Auscultation, Good Air Exchange. No: Respiratory Distress, Accessory Muscle Use Cardiovascular: Present: Regular Rate and Rhythm, Normal S1, S2. No: Murmurs Abdomen: Present: Tenderness (minimal non focal tenderness). No: Distention, Peritoneal Signs Back: Present: Normal Inspection Upper Extremity: Present: Normal Inspection. No: Cyanosis, Edema Lower Extremity: Present: Normal Inspection. No: Edema Neurological: Present: GCS=15, CN II-XII Intact, Speech Normal Skin: Present: Warm, Dry, Normal Color. No: Rashes Psychiatric: Present: Alert, Oriented x 3, Normal Insight, Normal Concentration Medical Decision Making ED Course and Treatment: 03/30/18 17:34 Impression: 87 year old male presents to the Emergency Department complaining of nausea, vomiting diarrhea and decreased appetite. Plan: -- EKG -- Labs -- Chest X-ray -- IV Fluids -- Vancomycin -- Blood Culture -- Urine Culture -- Urinalysis -- Reassess and disposition Prior Visits: Notes and results from previous visits were reviewed. Progress Notes: EKG: Ordered, reviewed, and independently interpreted the EKG. Rate : 82 BPM Rhythm : NSR Interpretation : No ST-segment elevations or depressions, no T-wave inversions, normal intervals. 03/30/18 18:27 case discussed with pt, requests dr montero as doctor in hospital. updated dr lewis, agrees to consult on patient. 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, dr decker, pending results of cxr, ct, anticapte admission for failure of outpt tx - Lab Interpretations Lab Results: 03/30/18 17:40 03/30/18 17:40 Lab Results 03/30/18 19:12: Urine Color Yellow, Urine Appearance Clear, Urine pH 6.0, Ur Specific [place] 1.025, Urine Protein Trace H, Urine Glucose (UA) Negative, Urine Ketones Trace H, Urine Blood Trace-lysed H, Urine Nitrate Negative, Urine Bilirubin Negative, Urine Urobilinogen 0.2, Ur Leukocyte Esterase Negative, Urine RBC 2 - 5, Urine WBC 0 - 2, Ur Epithelial Cells None, Urine Bacteria Mod 03/30/18 17:40: Sodium 141, Potassium 3.3 L, Chloride 104, Carbon Dioxide 26, Anion Gap 14, BUN 16, Creatinine 0.8, Est GFR ( Amer) > 60, Est GFR (Non- Af Amer) > 60, Random Glucose 91, Calcium 8.8, Magnesium 2.0, Total Bilirubin 0.7, AST 23, ALT 18, Alkaline Phosphatase 60, Lactate Dehydrogenase 362, Total Creatine Kinase 30 L, Troponin I 0.11 D, Total Protein 6.4, Albumin 3.2, Globulin 3.2, Albumin/Globulin Ratio 1.0 L, Lipase < 10 L 03/30/18 17:40: PT 12.7 H, INR 1.11, APTT 23.6 L 03/30/18 17:40: WBC 11.5 H D, RBC 3.78, Hgb 10.9 L, Hct 33.2 L, MCV 87.8, MCH 28.8, MCHC 32.8, RDW 13.9, Plt Count 264, MPV 10.1, Gran % 61.0, Lymph % (Auto) 10.3 L, [place] % (Auto) 21.0 H, Eos % (Auto) 7.4 H, Baso % (Auto) 0.3, Gran # 7.03 H, Lymph # (Auto) 1.2, [place] # (Auto) 2.4 H, Eos # (Auto) 0.9 H, Baso # ( Auto) 0.03, Neutrophils % (Manual) 65, Band Neutrophils % 9 H, Lymphocytes % ( Manual) 15 L, Monocytes % (Manual) 6, Eosinophils % (Manual) 5 H, Platelet Evaluation Normal, Hypochromasia 1+, Anisocytosis (manual) 1+ - RAD Interpretation Radiology Orders: 03/30/18 17:35 CHEST PORTABLE [RAD] Stat 03/30/18 19:05 ABD & PELVIS IV CONTRAST ONLY [CT] Stat - EKG Interpretation Interpreted by ED Physician: Yes Type: 12 lead EKG - Medication Orders Current Medication Orders: Arformoterol Tartrate (Brovana) 15 mcg IH [id number] SIA Last Admin: 03/31/18 07:14 Dose: 15 mcg Aspirin (Ecotrin) 81 mg PO DAILY SIA Atorvastatin Calcium (Lipitor) 10 mg PO DIN [facility] Budesonide (Pulmicort Respules) 0.5 mg IH [id number] SIA Last Admin: 03/31/18 07:14 Dose: 0.5 mg Famotidine (Pepcid) 20 mg PO HS SIA Fentanyl (Duragesic) 1 patch TD Q3D SIA Gabapentin (Neurontin) 800 mg PO TID SIA PRN Reason: Protocol Metronidazole (Flagyl) 500 mg in 100 mls @ 100 mls/hr IVPB Q8 SIA PRN Reason: Protocol Last Admin: 03/31/18 05:50 Dose: 100 mls/hr eMAR Start Stop Document 03/31/18 05:50 MAD (Rec: 03/31/18 05:50 MAD [id number]) Intravenous Solution Start Date 03/31/18 Start Time 05:50 Lactobacillus Acidophilus (Bacid Acidophilus) 1 cap PO BID [facility] Levothyroxine Sodium (Synthroid) 50 mcg PO 0600 SIA Last Admin: 03/31/18 05:50 Dose: 50 mcg Lidocaine (Lidoderm) 1 ea TD DAILY [facility] Metoprolol Tartrate (Lopressor) 25 mg PO BRKDIN SIA Mirtazapine (Remeron) 15 mg PO HS SIA Ondansetron HCl (Zofran Inj) 4 mg IVP Q6H PRN PRN Reason: Nausea/Vomiting Stop: 03/31/18 11:00 Vancomycin HCl (Vancocin 25 Mg/Ml (Oral Use)) 250 mg PO QID SIA PRN Reason: Protocol Discontinued Medications Sodium Chloride (Sodium Chloride 0.9%) 500 mls @ 999 mls/hr IV .Q31M STA Stop: 03/30/18 18:05 Last Admin: 03/30/18 18:27 Dose: 999 mls/hr eMAR Start Stop Document 03/30/18 18:27 SF (Rec: 03/30/18 18:27 SF [facility] [email or web address] Intravenous Solution Start Date 03/30/18 Start Time 18:27 End Date 03/30/18 End time 18:57 Total Infusion Time 30 Metronidazole (Flagyl) 500 mg in 100 mls @ 100 mls/hr IVPB STAT STA PRN Reason: Protocol Stop: 03/30/18 18:45 Last Admin: 03/30/18 18:32 Dose: 100 mls/hr eMAR Start Stop Document 03/30/18 18:32 SF (Rec: 03/30/18 18:32 SF [email or web address] Intravenous Solution Start Date 03/30/18 Start Time 18:32 End Date 03/30/18 End time 19:32 Total Infusion Time 60 Sodium Chloride (Sodium Chloride 0.9%) 1,000 mls @ 100 mls/hr IV .Q10H STA Stop: 03/31/18 07:25 Last Admin: 03/30/18 23:29 Dose: 100 mls/hr eMAR Start Stop Document 03/30/18 23:29 RE (Rec: 03/30/18 23:30 RE [email or web address] Intravenous Solution Start Date 03/30/18 Start Time 23:30 Pneumococcal Polyvalent Vaccine (Pneumovax 23 Vaccine) 0.5 ml IM .ONCE ONE Stop: 03/30/18 23:05 Last Admin: 03/30/18 23:30 Dose: 0.5 ml MAR Immunization Data Document 03/30/18 23:30 RE (Rec: 03/30/18 23:30 RE [facility] [place] [email or web address] Immunization Data Vaccine Information Sheet Given No Immunization Registry Document 03/30/18 23:30 RE (Rec: 03/30/18 23:30 RE [facility] [place] [email or web address] Immunization Registry Consent Date 03/30/18 Vancomycin HCl (Vancocin 25 Mg/Ml (Oral Use)) 500 mg PO STAT STA PRN Reason: Protocol Stop: 03/30/18 17:47 Last Admin: 03/30/18 18:49 Dose: 500 mg - Colletteibe Statement The provider has reviewed the documentation as recorded by the Colletteibdavid Armstrong. All medical record entries made by the Jeffrey were at my direction and personally dictated by me. I have reviewed the chart and agree that the record accurately reflects my personal performance of the history, physical exam, medical decision making, and the department course for this patient. I have also personally directed, reviewed, and agree with the discharge instructions and disposition. Disposition/Present on Arrival - Present on Arrival Any Indicators Present on Arrival: No History of DVT/PE: No History of Uncontrolled Diabetes: No Urinary Catheter: No History of Decub. Ulcer: No History Surgical Site Infection Following: None - Disposition Have Diagnosis and Disposition been Completed?: Yes Diagnosis: Colitis Disposition: HOSPITALIZED Disposition Time: 07:00 Patient Problems: Current Active Problems Problem Status Onset Colitis Acute Condition: STABLE
[2018-03-30 18:31] LABS: BASO # 0.03 K/mm3 (0.0-2.0); BASO % 0.3 % (0.0-3.0); EOS # 0.9 (0.0-0.7); EOS % 7.4 % (1.5-5.0); GRAN # 7.03 (1.4-6.5); HEMOGLOBIN 10.9 g/dL (14.0-18.0); LYMPH # 1.2 (1.2-3.4); LYMPH % 10.3 % (22.0-35.0); MEAN CELL VOLUME 87.8 fl (80.0-105.0); MEAN CORPUSCULAR HEMOGLOBIN 28.8 pg (25.0-35.0); MEAN CORPUSCULAR HGB CONC 32.8 g/dl (31.0-37.0); MEAN PLATELET VOLUME 10.1 fl (7.0-11.0); MONO # 2.4 (0.1-0.6); PLATELET COUNT 264 10^3/uL (120.0-450.0); RBC 3.78 10^6/uL (3.5-6.1); RED CELL DISTRIBUTION WIDTH 13.9 % (11.5-14.5); WHITE BLOOD COUNT 11.5 10^3/ul (4.5-11.0)
[2018-03-30 18:35] LABS: INR 1.11; PARTIAL THROMBOPLASTIN TIME 23.6 Seconds (25.1-36.5); PROTHROMBIN TIME 12.7 SECONDS (9.4-12.5)
[2018-03-30 18:55] LABS: BAND 9 % (0-2); NEUTROPHIL 65 % (50.0-70.0)
[2018-03-30 18:56] LABS: MONOCYTE 6 % (1.0-6.0)
[2018-03-30 18:59] LABS: LYMPHOCYTE 15 % (22.0-35.0)
[2018-03-30 19:00] LABS: ANISOCYTOSIS 1+; EOSINOPHIL 5 % (0.0-3.0); HYPOCHROMIA 1+; PLATELET ESTIMATE NORMAL (NORMAL)
[2018-03-30 19:05] LABS: ALBUMIN 3.2 g/dL (3.0-4.8); ALT/SGPT 18 U/L (7-56); AST/SGOT 23 U/L (17-59); BLOOD UREA NITROGEN 16 mg/dL (7-21); CALCIUM 8.8 mg/dL (8.4-10.5); GFR AFRICAN-AMERICAN > 60; GFR NON-AFRICAN AMERICAN > 60; LIPASE < 10 U/L (23-300)
[2018-03-30 19:17] LABS: TROPONIN I 0.11 ng/mL
[2018-03-30] MEDS ORDERED: Iodixanol 320 MG/ML 100 ML BOTTLE IV ONE (19:19)
--- NOTE | 2018-03-30 19:42 | ED PDOC ---
Physical Exam Vital Signs Reviewed: Yes Vital Signs Temp Pulse Resp BP Pulse Ox 03/30/18 19:06 85 16 140/87 98 03/30/18 17:10 98.4 F 85 18 149/98 H 96 Temperature: Afebrile Blood Pressure: Hypertensive Pulse: Regular Respiratory Rate: Normal Appearance: Positive for: Well-Appearing, Non-Toxic, Comfortable Pain Distress: None Mental Status: Positive for: Alert and Oriented X 3 - Systems Exam Head: Present: Atraumatic, Normocephalic Pupils: Present: PERRL Extroacular Muscles: Present: EOMI Conjunctiva: Present: Normal Neck: Present: Normal Range of Motion Respiratory/Chest: Present: Clear to Auscultation, Good Air Exchange. No: Respiratory Distress, Accessory Muscle Use Cardiovascular: Present: Regular Rate and Rhythm, Normal S1, S2. No: Murmurs Abdomen: Present: Tenderness (diffused nonfocal tenderness). No: Distention, Peritoneal Signs Back: Present: Normal Inspection Upper Extremity: Present: Normal Inspection. No: Cyanosis, Edema Lower Extremity: Present: Normal Inspection. No: Edema Neurological: Present: GCS=15, CN II-XII Intact, Speech Normal Skin: Present: Warm, Dry, Normal Color. No: Rashes Psychiatric: Present: Alert, Oriented x 3, Normal Insight, Normal Concentration Medical Decision Making ED Course and Treatment: 03/30/18 19:05 Case endorsed to me by Dr. Spears for pending CT of abdomen/pelvis and reassessment. Patient presented to the Emergency Department earlier today for nausea, vomiting, diarrhea and abdominal pain. Dr. Spears has discussed case with the accepting physician Dr. Montero regarding treatment of C. diff. Patient will ultimately be admitted to the hospital for C.diff and any changes will be made according to the results of the CT to be performed. Patient is currently resting in bed in no acute distress. Patient presents no new complaints. 03/30/18 21:26 CT Abdomen and Pelvis reviewed, pt will be admitted to Dr. Montero's service as previously outlined. - Lab Interpretations Lab Results: 03/30/18 17:40 03/30/18 17:40 Lab Results 03/30/18 19:12: Urine Color Yellow, Urine Appearance Clear, Urine pH 6.0, Ur Specific [place] 1.025, Urine Protein Trace H, Urine Glucose (UA) Negative, Urine Ketones Trace H, Urine Blood Trace-lysed H, Urine Nitrate Negative, Urine Bilirubin Negative, Urine Urobilinogen 0.2, Ur Leukocyte Esterase Negative, Urine RBC 2 - 5, Urine WBC 0 - 2, Ur Epithelial Cells None, Urine Bacteria Mod 03/30/18 17:40: Sodium 141, Potassium 3.3 L, Chloride 104, Carbon Dioxide 26, Anion Gap 14, BUN 16, Creatinine 0.8, Est GFR ( Amer) > 60, Est GFR (Non- Af Amer) > 60, Random Glucose 91, Calcium 8.8, Magnesium 2.0, Total Bilirubin 0.7, AST 23, ALT 18, Alkaline Phosphatase 60, Lactate Dehydrogenase 362, Total Creatine Kinase 30 L, Troponin I 0.11 D, Total Protein 6.4, Albumin 3.2, Globulin 3.2, Albumin/Globulin Ratio 1.0 L, Lipase < 10 L 03/30/18 17:40: PT 12.7 H, INR 1.11, APTT 23.6 L 03/30/18 17:40: WBC 11.5 H D, RBC 3.78, Hgb 10.9 L, Hct 33.2 L, MCV 87.8, MCH 28.8, MCHC 32.8, RDW 13.9, Plt Count 264, MPV 10.1, Gran % 61.0, Lymph % (Auto) 10.3 L, [place] % (Auto) 21.0 H, Eos % (Auto) 7.4 H, Baso % (Auto) 0.3, Gran # 7.03 H, Lymph # (Auto) 1.2, [place] # (Auto) 2.4 H, Eos # (Auto) 0.9 H, Baso # ( Auto) 0.03, Neutrophils % (Manual) 65, Band Neutrophils % 9 H, Lymphocytes % ( Manual) 15 L, Monocytes % (Manual) 6, Eosinophils % (Manual) 5 H, Platelet Evaluation Normal, Hypochromasia 1+, Anisocytosis (manual) 1+ - RAD Interpretation Radiology Orders: 03/30/18 17:35 CHEST PORTABLE [RAD] Stat 03/30/18 19:05 ABD & PELVIS IV CONTRAST ONLY [CT] Stat Facility Operations Manager: Radiologist - Medication Orders Current Medication Orders: Discontinued Medications Sodium Chloride (Sodium Chloride 0.9%) 500 mls @ 999 mls/hr IV .Q31M STA Stop: 03/30/18 18:05 Last Admin: 03/30/18 18:27 Dose: 999 mls/hr eMAR Start Stop Document 03/30/18 18:27 SF (Rec: 03/30/18 18:27 SF [facility] [email or web address] Intravenous Solution Start Date 03/30/18 Start Time 18:27 End Date 03/30/18 End time 18:57 Total Infusion Time 30 Metronidazole (Flagyl) 500 mg in 100 mls @ 100 mls/hr IVPB STAT STA PRN Reason: Protocol Stop: 03/30/18 18:45 Last Admin: 03/30/18 18:32 Dose: 100 mls/hr eMAR Start Stop Document 03/30/18 18:32 SF (Rec: 03/30/18 18:32 SF [facility] [email or web address] Intravenous Solution Start Date 03/30/18 Start Time 18:32 End Date 03/30/18 End time 19:32 Total Infusion Time 60 Vancomycin HCl (Vancocin 25 Mg/Ml (Oral Use)) 500 mg PO STAT STA PRN Reason: Protocol Stop: 03/30/18 17:47 Last Admin: 03/30/18 18:49 Dose: 500 mg - Colletteibe Statement The provider has reviewed the documentation as recorded by the Colletteibdavid Armstrong. All medical record entries made by the Colletteibdavid were at my direction and personally dictated by me. I have reviewed the chart and agree that the record accurately reflects my personal performance of the history, physical exam, medical decision making, and the department course for this patient. I have also personally directed, reviewed, and agree with the discharge instructions and disposition. Disposition/Present on Arrival - Present on Arrival Any Indicators Present on Arrival: No History of DVT/PE: No History of Uncontrolled Diabetes: No Urinary Catheter: No History of Decub. Ulcer: No History Surgical Site Infection Following: None - Disposition Have Diagnosis and Disposition been Completed?: Yes Diagnosis: Colitis Disposition: HOSPITALIZED Disposition Time: 21:25 Patient Plan: Admission Patient Problems: Current Active Problems Problem Status Onset Colitis Acute Condition: STABLE Referrals: Mustapha Smith MD [Primary Care Provider] - Follow up with primary Forms: [employer] (Kyrgyz)
[2018-03-30 19:45] LABS: URINE BILIRUBIN NEGATIVE (NEGATIVE); URINE BLOOD TRACE-LYSED (NEGATIVE); URINE COLOR YELLOW (YELLOW); URINE GLUCOSE (UA) NEGATIVE (NEGATIVE); URINE LEUKOCYTE ESTERASE NEGATIVE Leu/uL (NEGATIVE); URINE PROTEIN TRACE mg/dL (<30 mg/dL); URINE UROBILINOGEN 0.2 E.U./dL (<1 E.U./dL)
[2018-03-30 19:46] LABS: URINE APPEARANCE CLEAR (CLEAR)
[2018-03-30 19:49] LABS: URINE WBC 0 - 2 /hpf (0-6)
[2018-03-30 19:50] LABS: URINE BACTERIA MOD (NEG)
[2018-03-30] MEDS ORDERED: Sodium Chloride 0.9% 1,000 ML IV STA (21:26)
[2018-03-30] MEDS ORDERED: Pneumococcal 23-Valent Vaccine IM ONE (23:04)
[2018-03-31] MEDS: Levothyroxine 50 MCG TAB PO SCH (05:50)
[2018-03-31] MEDS: metroNIDAZOLE IV 500 mg/100 ml 500 MG/100 ML BAG IVPB SCH ×3 (05:50→23:09)
[2018-03-31] MEDS: Arformoterol 15 mcg/2 ml Inh Sol IH SCH ×2 (07:14→21:06)
[2018-03-31] MEDS: Budesonide 0.5 mg/2 ml Inhal Susp UD IH SCH ×2 (07:14→21:06)
[2018-03-31 07:45] LABS: HEMOGLOBIN 10.9 g/dL (14.0-18.0); MEAN CELL VOLUME 88.5 fl (80.0-105.0); MEAN CORPUSCULAR HEMOGLOBIN 28.4 pg (25.0-35.0); MEAN CORPUSCULAR HGB CONC 32.1 g/dl (31.0-37.0); MEAN PLATELET VOLUME 10.4 fl (7.0-11.0); RBC 3.84 10^6/uL (3.5-6.1); WHITE BLOOD COUNT 11.4 10^3/ul (4.5-11.0)
[2018-03-31 07:56] LABS: ALB/GLOB RATIO 0.9 (1.1-1.8); ALT/SGPT 22 U/L (7-56); AST/SGOT 31 U/L (17-59); BLOOD UREA NITROGEN 13 mg/dL (7-21); CALCIUM 8.8 mg/dL (8.4-10.5); GFR AFRICAN-AMERICAN > 60; GFR NON-AFRICAN AMERICAN > 60
--- NOTE | 2018-03-31 08:49 | CP.PCM.CON ---
History of Present Illness - History of Present Illness History of Present Illness: Asked by Dr. Montero for a GI consultation on this patient. 87 year old male with history of laryngeal cancer s/p chemo/radiation therapy, CAD s/p CABG, recent PEG tube removal earlier this month who presents to hospital with complaint of decreased appetite and diarrhea. He describes multiple episodes of watery, non-bloody diarrhea which started 5 days ago. Prior to this he was in usual state of health. He endorses up to 6 bowel movements daily during this time period but denies abdominal pain, fever/chills, weight loss. He does report 2 episodes of vomiting when symptoms initially started but none since. He denies sick contacts, recent travel, or antibiotic use. He had a colonoscopy in 2012 which showed small adenomatous and hyperplastic polyps. Today he feels well and is seen in bed resting comfortably, reports one loose bowel movement this morning so far but was able to tolerate PO diet without difficulty. Social history: former smoker, no ETOH use Family history: reviewed, patient denies history of colorectal or GI malignancy Review of Systems - Review of Systems Review of Systems: - All other comprehensive 12 point review of systems performed, negative - Constitutional Constitutional: Malaise - Cardiovascular Cardiovascular: absent: Acrocyanosis, Chest Pain, Chest Pain at Rest, Chest Pain with Activity, Claudication, Diaphoresis, Dyspnea, Dyspnea on Exertion, Edema, Irregular Heart Rhythm, Pain Radiating to Arm/Neck/Jaw, Leg Edema, Leg Ulcers, Lightheadedness, Orthopnea, Palpitations, Paroxysmal Nocturnal Dyspnea, Pedal Edema, Radiating Pain, Rapid Heart Rate, Slow Heart Rate, Syncope, Other - Respiratory Respiratory: absent: Cough, Dyspnea, Hemoptysis, Dyspnea on Exertion, Wheezing, Snoring, Stridor, Pain on Inspiration, Chest Congestion, Excessive Mucous Production, Change in Mucous Color, Pain with Coughing, Other - Gastrointestinal Gastrointestinal: Diarrhea, Nausea - Musculoskeletal Musculoskeletal: absent: Abnormal Gait, Arthralgias, Atrophy, Back Pain, Deformity, Joint Swelling, Limited Range of Motion, Loss of Height, Muscle Cramps, Muscle Weakness, Myalgias, Neck Pain, Numbness, Radiating Pain into Limb , Stiffness, Tingling, Other - Neurological Neurological: absent: Abnormal Gait, Abnormal Hearing, Abnormal Movements, Abnormal Speech, Behavioral Changes, Burning Sensations, Confusion, Convulsions , Disequilibrium, Dizziness, Numbness, Focal Weakness, Frequent Falls, Headaches , Lack of Coordination, Loss of Vision, Memory Loss, Paresthesias, Radicular Pain, Restless Legs, Sensory Deficit, Syncope, Tingling, Tremor, Vertigo, Weakness, Other Visual Disturbances, Other Past Patient History - Infectious Disease Hx of Infectious Diseases: None - Past Social History Smoking Status: Never Smoked - CARDIAC Hx Cardiac Disorders: Yes Hx Hypertension: Yes - PULMONARY Hx Chronic Obstructive Pulmonary Disease (COPD): Yes - NEUROLOGICAL Hx Neurological Disorder: No - HEENT Hx HEENT Problems: Yes Hx Difficulty Chewing: Yes Other/Comment: THROAT CA - RENAL Hx Chronic Kidney Disease: No - ENDOCRINE/METABOLIC Hx Endocrine Disorders: Yes Hx Hypothyroidism: Yes - HEMATOLOGICAL/ONCOLOGICAL Hx Blood Transfusions: No - INTEGUMENTARY Hx Dermatological Problems: No - MUSCULOSKELETAL/RHEUMATOLOGICAL Hx Falls: No - GASTROINTESTINAL Hx Gastrointestinal Disorders: Yes (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) - GENITOURINARY/GYNECOLOGICAL Hx Genitourinary Disorders: No - PSYCHIATRIC Hx Psychophysiologic Disorder: No Hx Substance Use: No - SURGICAL HISTORY Hx Joint Replacement: Yes (left shldr) Hx Musculoskeletal Surgery: Yes (R/L Foot, R-ankle) Other/Comment: G TUBE, PORT R UPPER CHEST. Larynectomy. Bronoscopy. Right Shldr rotator cuff repair. Deviated septum repair - ANESTHESIA Hx Anesthesia Reactions: No Hx Malignant Hyperthermia: No Meds Allergies/Adverse Reactions: Allergies Allergy/AdvReac Type Severity Reaction Status Date / Time No Known Allergies Allergy Verified 03/30/18 16:59 - Medications Medications: Current Medications Arformoterol Tartrate (Brovana) 15 mcg IH [id number] [facility] Last Admin: 03/31/18 07:14 Dose: 15 mcg Aspirin (Ecotrin) 81 mg PO DAILY [facility] Atorvastatin Calcium (Lipitor) 10 mg PO DIN [facility] Budesonide (Pulmicort Respules) 0.5 mg IH [id number] [facility] Last Admin: 03/31/18 07:14 Dose: 0.5 mg Famotidine (Pepcid) 20 mg PO HS [facility] Fentanyl (Duragesic) 1 patch TD Q3D [facility] Gabapentin (Neurontin) 800 mg PO TID [facility] PRN Reason: Protocol Metronidazole (Flagyl) 500 mg in 100 mls @ 100 mls/hr IVPB Q8 [facility] PRN Reason: Protocol Last Admin: 03/31/18 05:50 Dose: 100 mls/hr Lactobacillus Acidophilus (Bacid Acidophilus) 1 cap PO BID [facility] Levothyroxine Sodium (Synthroid) 50 mcg PO 0600 [facility] Last Admin: 03/31/18 05:50 Dose: 50 mcg Lidocaine (Lidoderm) 1 ea TD DAILY [facility] Metoprolol Tartrate (Lopressor) 25 mg PO BRKDIN [facility] Mirtazapine (Remeron) 15 mg PO HS [facility] Ondansetron HCl (Zofran Inj) 4 mg IVP Q6H PRN PRN Reason: Nausea/Vomiting Stop: 03/31/18 11:00 Vancomycin HCl (Vancocin 25 Mg/Ml (Oral Use)) 250 mg PO QID [facility] PRN Reason: Protocol Physical Exam - Constitutional Appears: Non-toxic, No Acute Distress - Head Exam Head Exam: NORMAL INSPECTION - Eye Exam Eye Exam: EOMI, Normal appearance - ENT Exam ENT Exam: Mucous Membranes Moist - Respiratory Exam Respiratory Exam: Clear to Auscultation Bilateral - Cardiovascular Exam Cardiovascular Exam: REGULAR RHYTHM, +S1, +S2 Additional comments: midline surgical scar present - GI/Abdominal Exam GI & Abdominal Exam: Normal Bowel Sounds, Soft Additional comments: non tender to palpation in four quadrants LUQ prior PEG site appears clean/dry/healed no palpable hepato/splenomegaly - Extremities Exam Extremities exam: Positive for: normal inspection - Neurological Exam Neurological exam: Alert, CN II-XII Intact, Oriented x3, Reflexes Normal - Psychiatric Exam Psychiatric exam: Normal Affect, Normal Mood - Skin Skin Exam: Dry, Intact, Normal Color, Warm Results - Vital Signs Recent Vital Signs: Last Vital Signs Temp 98.4 F 03/30/18 22:39 Pulse 91 H 03/31/18 07:21 Resp 20 03/30/18 22:39 BP 150/71 03/30/18 22:39 Pulse Ox 99 03/30/18 22:39 - Labs Result Diagrams: 03/31/18 06:30 03/31/18 07:00 Labs: Laboratory Results - last 24 hr 03/31/18 03/31/18 06:30 07:00 WBC 11.4 H RBC 3.84 Hgb 10.9 L Hct 34.0 L MCV 88.5 MCH 28.4 MCHC 32.1 RDW 14.0 Plt Count 275 MPV 10.4 Sodium 142 Potassium 2.9 L* Chloride 103 Carbon Dioxide 28 Anion Gap 15 BUN 13 Creatinine 0.8 Est GFR ( Amer) > 60 Est GFR (Non-Af Amer) > 60 Random Glucose 85 Calcium 8.8 Total Bilirubin 0.7 AST 31 ALT 22 Alkaline Phosphatase 67 Total Protein 6.2 Albumin 3.0 Globulin 3.2 Albumin/Globulin Ratio 0.9 L Assessment & Plan - Assessment and Plan (Free Text) Assessment: History of laryngeal cancer s/p chemo/radiation therapy CAD/CABG Hyperlipidemia Hypothyroidism Diarrhea CT imaging reviewed by me showing left sided diverticular disease along with diffuse colon wall thickening Plan: - Full liquid diet as tolerated - Agree with empiric PO vancomycin coverage for c-difficile given almendarez colonic involvement - Would consider broadening antibiotic coverage if patient does not improve clinically - Obtain stool studies, blood culture - Monitor and replete electrolytes - Patient may benefit from elective outpatient colonoscopy following resolution of acute colitis, though will need to carefully discuss risks/benefits of potential procedure given patient advanced age and medical comorbidities. Will continue to monitor patient clinical course.
[2018-03-31] MEDS: Lactobacillus Acidophilus 500 MU Cap PO SCH ×2 (09:06→17:47)
[2018-03-31] MEDS: Lidocaine 5% Patch TD SCH (09:07)
[2018-03-31] MEDS: Vancomycin 25 MG/ML PO SCH ×4 (09:08→23:09)
[2018-03-31 11:58] VITALS: BMI 15.9
[2018-03-31] MEDS: Sodium Chloride 0.45% 1,000 ML IV SCH (12:28)
[2018-03-31] MEDS: Enoxaparin 60 mg Syringe SC SCH ×2 (12:28→23:10)
--- NOTE | 2018-03-31 13:07 | RAD ---
Date of service: 03/30/2018 HISTORY: Abdominal pain. COMPARISON: Comparison chest dated 11/21/2017. Comparison also made with CT scan chest 11/22/2017 FINDINGS: Re- demonstrated is in situ right sided central line with tip in the SVC/RA junction. LUNGS: Hyperinflation consistent with emphysema. Coarsened/ increased interstitial markings particularly notable in the upper lung jules likely due to fibrosis. Biapical pleural thickening right greater than left. PLEURA: As above. No pneumothorax apparent. CARDIOVASCULAR: Sternotomy wires and CABG clips. Marked enlargement of the pulmonary trunk and pulmonary arteries consistent with pulmonary arterial hypertension. . Heart size otherwise unchanged OSSEOUS STRUCTURES: Again seen left-sided total humeral head replacement unchanged VISUALIZED UPPER ABDOMEN: Normal. OTHER FINDINGS: None. IMPRESSION: Hyperinflation consistent with emphysema. Coarsened/ increased interstitial markings particularly notable in the upper lung jules likely due to fibrosis. Biapical pleural thickening right greater than left. Re- demonstrated is marked enlargement of the pulmonary trunk consistent with pulmonary arterial hypertension.
--- NOTE | 2018-03-31 13:31 | CT ---
Date of service: 03/30/2018 PROCEDURE: CT Abdomen and Pelvis with contrast HISTORY: Abdominal pain with diarrhea. History of the C. Difficile. COMPARISON: Comparison made with the CT chest 11/22/2017 which image the upper abdomen. TECHNIQUE: C contiguous helical/ transaxial sections of the abdomen pelvis performed following intravenous injection of 100 cc Visipaque 320 contrast material. Additional 2 dimensional sagittal and coronal reformats generated. Radiation dose: Total exam DLP = 342.64 mGy-cm. This CT exam was performed using one or more of the following dose reduction techniques: Automated exposure control, adjustment of the mA and/or kV according to patient size, and/or use of iterative reconstruction technique. . FINDINGS: LOWER THORAX: Patchy at infiltrate changes seen in the right posterior lower lung field. The there also underlying areas of chronic interstitial changes/fibrosis both lung bases. Localized areas of chronic atelectasis/scarring left lung base as well. Marked enlargement of the pulmonary trunk and pulmonary arteries consistent with underlying pulmonary arterial hypertension. LIVER: The liver exhibits normal size and attenuation pattern without mass collection or calcification. There appears to be minimal diffuse fatty hepatic infiltration. Portal and splenic veins are opacified. GALLBLADDER AND BILE DUCTS: Gallbladder physiologically distended. No evidence of intraluminal gallbladder calculi. PANCREAS: Pancreas appears slightly atrophic and fatty replaced. SPLEEN: Spleen exhibits relatively normal size and attenuation pattern without mass collection or calcification. ADRENALS: There are no adrenal lesions however note made of some minor linear calcification left adrenal gland likely dystrophic. KIDNEYS AND URETERS: Kidneys demonstrate relatively symmetric nephrograms. No evidence of nephrolithiasis or hydronephrosis. VASCULATURE: Calcified atherosclerotic plaque changes seen along the abdominal aorta and iliac arteries. There also calcified plaque changes seen along the origins of large branch vessels. BOWEL: Evaluation of the bowel is somewhat limited due to the lack of oral contrast. Stomach is incompletely distended which presumably accounts for thick-walled appearance. Visualized loops of small bowel exhibit relatively normal contour and caliber however note made of slight wall thickening of several loops of small bowel nonspecific. Rule out enteritis. No evidence acute mechanical small bowel obstruction. There is mild wall thickening of colon, nonspecific. Findings could represent a inflammatory or infectious colitis versus sequela of C difficile. Clinical correlation recommended. . Clinical correlation recommended. APPENDIX: The appendix is not seen with complete certainty. No obvious inflammatory changes right lower quadrant of the abdomen. PERITONEUM: Unremarkable. No free fluid. No free air. LYMPH NODES: No significant/ bulky adenopathy identified. BLADDER: Urinary bladder incompletely distended which in part accounts for thick-walled appearance. Muscular hypertrophy may contribute. Cystitis or other intrinsic/invasive wall lesion not excluded. REPRODUCTIVE: Prostate gland and seminal vesicles appear grossly unremarkable. BONES: No acute fracture. OTHER FINDINGS: None. IMPRESSION: Nonspecific thickening of the on wall with colon ; rule out sequela of infectious/inflammatory colitis or possibly C difficile. There also appears to be mild wall thickening of several loops of proximal small bowel; rule out enteritis.
--- NOTE | 2018-03-31 15:11 | HP ---
Copied To: Demetrius Montero DO Attending MD: Demetrius Montero DO HISTORY OF PRESENT ILLNESS: I have been seeing Jw Vila at the [facility]. He is now on my service. I have been seeing him for a couple of months now. He decided to change to my service. He comes in with a history of having C. diff in the longterm. He was already on Flagyl p.o. It just got worse, nauseous, vomiting, diarrhea, decreased appetite, feeling quite weak and he felt that he needed to be in the hospital, would not stay in the longterm and now he is in the ER and we are putting him in. 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 Smith. He is status post PEG tube feeds, hypertension, CAD, status post CABG, radiation dermatitis with MRSA cellulitis. He has skin tumors. He has difficulty chewing, hypothyroidism. He had left shoulder surgery. He had right and left foot, right ankle surgeries. G-tube. He had a port in the right upper chest, laryngectomy, bronchoscopy, right shoulder rotator cuff repair, deviated septum repair. FAMILY HISTORY: No known family history. SOCIAL HISTORY: Never smoked. He drank alcohol in the past. No substance abuse. ALLERGIES: NO KNOWN DRUG ALLERGIES. MEDICATIONS: He takes Pravachol, CoQ10, Pepcid, Neurontin, Acidophilus, Levoxyl, Lidoderm, Remeron, vitamins, ProSource protein, Duragesic, fentanyl patch at 25 mcg an hour. REVIEW OF SYSTEMS: No acute vision or hearing changes. A little dry throat. No neck pain. No chest pain or palpitations. No shortness of breath or cough. He does have abdominal pain. Does have diarrhea, nausea, vomiting. No appetite at all. No back pain or neck pain. No headaches or dizziness. Skin has got multiple lesions on it. PHYSICAL EXAMINATION: VITAL SIGNS: He has 98.4 temp; 85 pulse; 18 respiratory rate; 149/98 on the blood pressure, we will watch that, it did come down to 150/71 and 96% to 99% O2 sat on room air. GENERAL: He is very ill appearing, chronically ill appearing anyway, but he is a little bit worse today. Alert and oriented x3, weak, lethargic. HEENT: Head is atraumatic, normocephalic. Extraocular muscles are intact. Pupils equal, reactive to light. Throat is dry. NECK: Supple. HEART: Regular rate. Normal S1 and S2. LUNGS: Decreased breath sounds, fair exchange. No real good inspiration from the patient, but no wheezes or rhonchi or rales. ABDOMEN: Mildly tenderness all over the place, nonfocal, no distention, but no guarding or rebound. No CVA tenderness. EXTREMITIES: Have no edema. NEUROLOGIC: GCS is 15. Cranial nerves II through XII grossly intact. Speech is normal. Alert and oriented x3. SKIN: Warm and dry. No apparent rashes. LYMPHATICS: Thyroid midline. No palpable lymphadenopathy appreciated. He is weak. Poor appetite. LABORATORY DATA: He had multiple tests done. He had 11.4 white count, 10.9 hemoglobin, 34 hematocrit with 275 platelets and INR is 1.11. He has a 142 sodium; potassium is 2.9, we are going to replace the potassium; his BUN 13; creatinine 0.8; GFR is greater than 60; sugar is 85; calcium is 8.8; total bili is 0.7; AST is 31; ALT is 22; alk phos 67; total protein 6.2. Urine with moderate bacteria. IMPRESSION: He has got a little bit of a urinary tract infection. He has got consults with Infectious Disease and GI and Cardiology. His troponin was 0.11, indeterminate. Potassium is low. We have a positive Clostridium difficile in the longterm and we are going to try and get physical therapy and keep him strong and replace potassium, antibiotics, IV fluids. Demetrius Montero DO
--- NOTE | 2018-03-31 15:20 | CON ---
Copied To: Virgil Eng MD Attending MD: Virgil Eng MD DATE: 03/31/2018 CARDIOLOGY CONSULTATION HISTORY: The patient is an 87-year-old male, who presents with recurrent abdominal pain and diarrhea. The patient has had a recent PEG removal. He is status post laryngeal CA, status post chemotherapy and radiation. In addition, the patient is status post coronary artery bypass surgery 4 years ago at [facility]. He denies chest pain. Denies shortness of breath. SOCIAL HISTORY: He is a former smoker. REVIEW OF SYSTEMS: Fourteen-point review of systems is reviewed in detail. There are no cardiac symptomatologies noted. His symptoms are predominately abdominal in which there is resolution of his diarrhea. PHYSICAL EXAMINATION: VITAL SIGNS: On physical exam, blood pressure is 99/50, the heart rate is in the 80s. NECK: Negative JVD. LUNGS: Without rales. HEART: Reveals S1, S2. EXTREMITIES: Without edema. LABORATORY DATA: Hemoglobin is 10.9, white count is 11.4, potassium is 2.9 with a troponin of 0.11. EKG shows no acute changes. IMPRESSION: 1. [id number] myocardial infarction. 2. Coronary artery disease. 3. History of coronary artery bypass surgery. 4. Laryngeal cancer. 5. Diarrhea. 6. Colitis. PLAN: Given these findings, we will restart the patient on his aspirin. Beta-blockers have been ordered. We will start the patient on subcu heparin. We will transfer the patient to telemetry for heart monitoring. Depending on the status of his colitis, we will consider the patient depending on the results of repeat troponins and the patient's clinical course. Virgil Eng MD
--- NOTE | 2018-03-31 16:05 | CP.PCM.CON ---
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 He denies having fever or chills, no headache or dizziness, no abdominal pain, no sore throat, no cough or colds, no dysphagia, no dysuria, no pain at his anterior chest wall port site. Stool for C. diff was done in the detention which is positive. Infectious Diseases consult is requested to further evaluate and manage. Review of Systems - Review of Systems All systems: reviewed and no additional remarkable complaints except (as per HPI ) Past Patient History - Infectious Disease Hx of Infectious Diseases: None - Past Social History Smoking Status: Former Smoker - CARDIAC Hx Cardiac Disorders: Yes Hx Hypercholesterolemia: Yes Hx Hypertension: Yes Other/Comment: open heart 2014, angioplasty - PULMONARY Hx Chronic Obstructive Pulmonary Disease (COPD): Yes - NEUROLOGICAL Hx Neurological Disorder: No - HEENT Hx HEENT Problems: Yes Hx Cataracts: Yes (b/l sx) Hx Difficulty Chewing: Yes Other/Comment: THROAT CA, had peg tube was removed 5-6 weeks ago - RENAL Hx Chronic Kidney Disease: No - ENDOCRINE/METABOLIC Hx Endocrine Disorders: Yes Hx Hypothyroidism: Yes - HEMATOLOGICAL/ONCOLOGICAL Hx Blood Disorders: Yes Hx Cancer: Yes (laryngeal, 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) Hx Chemotherapy: Yes Other/Comment: completed chemo and radiation 3-4 months ago, pt was dx with laryngeal ca 2016 - INTEGUMENTARY Hx Dermatological Problems: Yes Other/Comment: buttocks reddened no openings, b/l feet thick toenails, left foot bottom of foot dry flakey skin and redness, tip of great toe red with small 0.5cm round deep red sore, bunyon reddened, hx of radiation dermatitis, prior unspecified skin tumors - MUSCULOSKELETAL/RHEUMATOLOGICAL Hx Musculoskeletal Disorders: Yes Hx Falls: No Hx Unsteady Gait: Yes - GASTROINTESTINAL Hx Gastrointestinal Disorders: Yes (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) HX Swallowing Problems: Yes Other/Comment: + c dif, weight loss, poor appetite - GENITOURINARY/GYNECOLOGICAL Hx Genitourinary Disorders: No - PSYCHIATRIC Hx Psychophysiologic Disorder: No Hx Substance Use: No - SURGICAL HISTORY Hx Surgeries: Yes Hx Joint Replacement: Yes (left shldr) Hx Musculoskeletal Surgery: Yes (R/L Foot, R-ankle) Other/Comment: peg tube in and out, rcw pac, left knee replacement, left trigger finger sx, deviated septum x2, r ankle fx playing baseball 1950 x2 sx has hardware, lower back sx, left shoulder replacement, rotator cuff x4, colonoscopy x4, r foot sx great toe overlapping other toes - ANESTHESIA Hx Anesthesia Reactions: No Hx Malignant Hyperthermia: No Meds Allergies/Adverse Reactions: Allergies Allergy/AdvReac Type Severity Reaction Status Date / Time No Known Allergies Allergy Verified 03/30/18 16:59 - Medications Medications: Current Medications Arformoterol Tartrate (Brovana) 15 mcg IH [id number] [facility] Aspirin (Ecotrin) 81 mg PO DAILY [facility] Atorvastatin Calcium (Lipitor) 10 mg PO DIN [facility] Budesonide (Pulmicort Respules) 0.5 mg IH [id number] [facility] Famotidine (Pepcid) 20 mg PO HS [facility] Fentanyl (Duragesic) 1 patch TD Q3D [facility] Gabapentin (Neurontin) 800 mg PO TID [facility] PRN Reason: Protocol Sodium Chloride (Sodium Chloride 0.9%) 1,000 mls @ 100 mls/hr IV .Q10H ST[facility] Stop: 03/31/18 07:25 Last Admin: 03/30/18 23:29 Dose: 100 mls/hr Metronidazole (Flagyl) 500 mg in 100 mls @ 100 mls/hr IVPB Q8 [facility] PRN Reason: Protocol Last Admin: 03/31/18 05:50 Dose: 100 mls/hr Lactobacillus Acidophilus (Bacid Acidophilus) 1 cap PO BID [facility] Levothyroxine Sodium (Synthroid) 50 mcg PO 0600 [facility] Last Admin: 03/31/18 05:50 Dose: 50 mcg Lidocaine (Lidoderm) 1 ea TD DAILY [facility] Metoprolol Tartrate (Lopressor) 25 mg PO BRKDIN [facility] Mirtazapine (Remeron) 15 mg PO HS [facility] Ondansetron HCl (Zofran Inj) 4 mg IVP Q6H PRN PRN Reason: Nausea/Vomiting Stop: 03/31/18 11:00 Vancomycin HCl (Vancocin 25 Mg/Ml (Oral Use)) 250 mg PO QID [facility] PRN Reason: Protocol Physical Exam - Constitutional Appears: Cachectic, Chronically Ill - Head Exam Head Exam: NORMAL INSPECTION - ENT Exam ENT Exam: Mucous Membranes Moist - Neck Exam Neck exam: Negative for: Meningismus - Respiratory Exam Respiratory Exam: Decreased Breath Sounds Additional comments: right anterior chest wall port site clean and intact - Cardiovascular Exam Cardiovascular Exam: +S1, +S2 - GI/Abdominal Exam GI & Abdominal Exam: Soft. absent: Tenderness Results - Vital Signs Recent Vital Signs: Last Vital Signs Temp 98.4 F 03/30/18 22:39 Pulse 91 H 03/30/18 22:39 Resp 20 03/30/18 22:39 BP 150/71 03/30/18 22:39 Pulse Ox 99 03/30/18 22:39 - Labs Result Diagrams: 03/31/18 06:30 03/31/18 07:00 Assessment & Plan - Assessment and Plan (Free Text) Plan: Assessment C. diff. 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
--- NOTE | 2018-03-31 16:22 | CARD ---
APPROVED REPORT Date of service: 03/30/2018 EKG Measurement Heart [id number] <Conclusion> Sinus rhythm with 1st degree AV block Otherwise normal ECG
--- NOTE | 2018-04-01 04:19 | CON ---
Copied To: Mustapha Smith MD Attending MD: Mustapha Smith MD DATE: 03/31/2018 HISTORY OF PRESENT ILLNESS: This is an 87-year-old male with a past medical history of stage LALO laryngeal carcinoma treated with concurrent chemotherapy(Erbitux) and radiation therapy, currently in remission based on the PET CT scan done on 03/28/2018 as an outpatient, shows complete remission with post radiation changes. He is admitted through the [facility] because of nausea, vomiting, watery stools, anorexia for the past 2 days. The patient denies having any fevers, chills, headache, dizziness, abdominal pain, sore throat, cough or cold, dysphagia, dysuria or pain at the site over the port where he has a chest wall port. The patient recently had his PEG removed prior to him entering into the nursing facility. The patient has significant coronary artery disease, status post coronary artery bypass surgery. He also had right shoulder replacement and he has knee replacements in the past. The patient has had several admissions to [facility] in the past including skin infection on the left side of the neck with MRSA, herpes simplex virus, radiation dermatitis on the left side of the neck with superimposed cellulitis, all of which were treated successfully in the past. The patient's swallowing has improved over time post radiation, which completed about 4 months ago. The patient had been recently seen in the office as an outpatient when the PET CT scan had been requested. REVIEW OF SYSTEMS: A 12-system review of systems is done and no additional complaints noted except for what is mentioned in the HPI. 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 ALLERGIES: THE PATIENT HAS NO SIGNIFICANT ALLERGIES. MEDICATIONS: The patient's medications reviewed. He is on Brovana 15 mcg inhaled every 12 hours, aspirin 81 mg daily, Lipitor 10 mg daily, Pulmicort 0.5 mg inhaled every 12 hours, Pepcid 20 mg at bedtime, fentanyl patch 1 patch every 3 days, 25 mcg; gabapentin 800 mg three times daily. He is on IV fluids 1000 mL of normal saline at 100 mL an hour. He is on metronidazole 500 mg IV piggyback every 8 hours. He is on Lactobacillus acidophilus 1 cap b.i.d. He is on Synthroid 50 mcg daily. He is on lidocaine patches to apply to topical areas on the left side of the neck and the shoulder 1 daily. He is on Lopressor 25 mg p.o. daily. He is on Remeron 15 mg p.o. at bedtime. He is on Zofran 4 mg IV every 6 hours p.r.n. He is on vancomycin 250 mg p.o. daily. PHYSICAL EXAMINATION VITAL SIGNS: Stable. T-max is 98.4, pulse is 91, respirations 20, blood pressure is 150/71, pulse ox is 99% on room air. HEENT: Head is normocephalic, atraumatic. Temporal muscle wasting is noted. The patient appears to be cachectic and ill looking. Examination of the oropharynx reveals tongue to be moist. No ulcerations are noted. NECK: Supple. There is no adenopathy, extensive radiation changes noted on both sides of the neck. Previously noted areas of ulceration are completely healed on the left side extending to his shoulder and to the posterior aspect of his chest wall. All those areas where he has herpetic, scarring has developed at this point. CARDIOVASCULAR: Reveals PMI within the fifth intercostal space, inside the midclavicular line. S1 and S2 are normal. No gallop or murmur is heard. ABDOMEN: Soft, nontender. Bowel sounds are present. No rebound, rigidity or guarding is noted. EXTREMITIES: Reveals no cyanosis, clubbing or edema. NEUROLOGIC: Reveals higher functions to be normal. No focal deficits are noted. The patient is able to recognize me and recall all the events that we had treated him for. LABORATORY DATA: From today reveals a white count of 11.4, hemoglobin 10.9, hematocrit 34, platelet count 275,000. Sodium is 142, K is 2.9, chloride 103, CO2 is 28, BUN is 13, creatinine 0.8, blood sugar is 85. ASSESSMENT, NOTES AND PLAN: The patient has clinically diarrhea with Clostridium difficile colitis. CAT scan of the abdomen also reveals changes with thickening of the colon consistent with colitis, history of sepsis with new evidence of infiltrate in the right lower lobe, possibility of gram-positive cocci is to be entertained, history of oral candidiasis, history of superimposing infection of the left side of the neck with bacteria Methicillin-resistant Staphylococcus aureus along with herpes simplex virus, history of radiation dermatitis, stage LALO supraglottic carcinoma, status post chemotherapy and radiation, currently appears to be in remission, status post PEG removal recently. RECOMMENDATIONS: Currently, the patient is on p.o. vancomycin and IV Flagyl and IV fluids. Recommend continuation of the treatment with ID evaluation, replacement of electrolytes. We will follow the patient with you and make appropriate recommendations. Currently, the patient appears to be in remission as far as underlying malignancy is concerned. Thanking you for allowing me to participate in the management of this patient. Please make a note, this is a medically necessary and appropriate visit for this patient who has multiple comorbid medical issues. Mustapha Smith MD
[2018-04-01] MEDS: Levothyroxine 50 MCG TAB PO SCH (05:22)
[2018-04-01] MEDS: metroNIDAZOLE IV 500 mg/100 ml 500 MG/100 ML BAG IVPB SCH ×3 (05:22→21:25)
[2018-04-01 07:22] LABS: MEAN CELL VOLUME 88.3 fl (80.0-105.0); MEAN CORPUSCULAR HEMOGLOBIN 27.9 pg (25.0-35.0); MEAN CORPUSCULAR HGB CONC 31.6 g/dl (31.0-37.0); MEAN PLATELET VOLUME 10.2 fl (7.0-11.0); RBC 3.58 10^6/uL (3.5-6.1); WHITE BLOOD COUNT 9.6 10^3/ul (4.5-11.0)
[2018-04-01 07:23] LABS: ALB/GLOB RATIO 0.9 (1.1-1.8); ALBUMIN 2.4 g/dL (3.0-4.8); ALT/SGPT 27 U/L (7-56); AST/SGOT 18 U/L (17-59); BLOOD UREA NITROGEN 8 mg/dL (7-21); GFR AFRICAN-AMERICAN > 60; GFR NON-AFRICAN AMERICAN > 60
--- NOTE | 2018-04-01 08:02 | CP.PCM.PN ---
<Amn Devina - Last Filed: 04/01/18 09:10> Subjective - Date & Time of Evaluation Date of Evaluation: 04/01/18 Time of Evaluation: 07:30 - Subjective Subjective: GI Fellow PGY5 Progress Note Pt seen and evaluated at bedside, pt reports 7 episodes of loose BM yesterday morning and none at night but per nursing 2 loose green BM overnight. No BM reported this am. Tolerating full liquid diet. No abdominal pain, F/C or N/V. ROS: A 12pt ROS was negative except as above Objective - Vital Signs/Intake and Output Vital Signs (last 24 hours): Temp Pulse Resp BP Pulse Ox 98.5 F 78 18 112/60 100 04/01/18 06:00 04/01/18 06:00 04/01/18 06:00 04/01/18 06:00 04/01/18 06:00 Intake and Output: 04/01/18 04/01/18 06:59 18:59 Intake Total 360 720 Output Total 300 Balance 60 720 - Medications Medications: Current Medications Arformoterol Tartrate (Brovana) 15 mcg IH [id number] REPLACED BY [facility] Last Admin: 03/31/18 21:06 Dose: 15 mcg Aspirin (Ecotrin) 81 mg PO DAILY REPLACED BY [facility] Last Admin: 03/31/18 09:07 Dose: 81 mg Atorvastatin Calcium (Lipitor) 10 mg PO DIN REPLACED BY [facility] Last Admin: 03/31/18 17:47 Dose: 10 mg Budesonide (Pulmicort Respules) 0.5 mg IH [id number] REPLACED BY [facility] Last Admin: 03/31/18 21:06 Dose: 0.5 mg Enoxaparin Sodium (Lovenox) 50 mg SC Q12H REPLACED BY [facility] PRN Reason: Protocol Last Admin: 03/31/18 23:10 Dose: 50 mg Famotidine (Pepcid) 20 mg PO HS REPLACED BY [facility] Last Admin: 03/31/18 23:09 Dose: 20 mg Fentanyl (Duragesic) 1 patch TD Q3D REPLACED BY [facility] Gabapentin (Neurontin) 800 mg PO TID REPLACED BY [facility] PRN Reason: Protocol Last Admin: 03/31/18 17:05 Dose: Not Given Metronidazole (Flagyl) 500 mg in 100 mls @ 100 mls/hr IVPB Q8 [facility] PRN Reason: Protocol Last Admin: 04/01/18 05:22 Dose: 100 mls/hr Sodium Chloride (Sodium Chloride 0.45%) 1,000 mls @ 60 mls/hr IV .[id number] REPLACED BY [facility] Last Admin: 03/31/18 12:28 Dose: 60 mls/hr Potassium Chloride (Potassium Chloride 20 Meq/100 Ml) 20 meq in 100 mls @ 50 mls/hr IVPB Q2H [facility] Stop: 04/01/18 11:44 Lactobacillus Acidophilus (Bacid Acidophilus) 1 cap PO BID REPLACED BY [facility] Last Admin: 03/31/18 17:47 Dose: 1 cap Levothyroxine Sodium (Synthroid) 50 mcg PO 0600 REPLACED BY [facility] Last Admin: 04/01/18 05:22 Dose: 50 mcg Lidocaine (Lidoderm) 1 ea TD DAILY REPLACED BY [facility] Last Admin: 03/31/18 09:07 Dose: 1 ea Metoprolol Tartrate (Lopressor) 25 mg PO BRKDIN REPLACED BY [facility] Last Admin: 03/31/18 17:47 Dose: 25 mg Mirtazapine (Remeron) 15 mg PO HS REPLACED BY [facility] Last Admin: 03/31/18 23:09 Dose: 15 mg Potassium Chloride (Klor-Con 10) 40 meq PO Q4H REPLACED BY [facility] Stop: 04/01/18 11:46 Vancomycin HCl (Vancocin 25 Mg/Ml (Oral Use)) 250 mg PO QID REPLACED BY [facility] PRN Reason: Protocol Last Admin: 03/31/18 23:09 Dose: 250 mg - Labs Labs: 04/01/18 06:00 04/01/18 06:00 PT 12.7 SECONDS (9.4-12.5) H 03/30/18 17:40 INR 1.11 03/30/18 17:40 APTT 23.6 Seconds (25.1-36.5) L 03/30/18 17:40 - Constitutional Appears: Non-toxic, No Acute Distress - Head Exam Head Exam: ATRAUMATIC, NORMAL INSPECTION, NORMOCEPHALIC - Eye Exam Eye Exam: EOMI, Normal appearance, PERRL Pupil Exam: PERRL - ENT Exam ENT Exam: Mucous Membranes Dry - Neck Exam Neck Exam: Full ROM, Normal Inspection - Respiratory Exam Respiratory Exam: Clear to Ausculation Bilateral, NORMAL BREATHING PATTERN - Cardiovascular Exam Cardiovascular Exam: RRR, +S1 - GI/Abdominal Exam GI & Abdominal Exam: Soft, Normal Bowel Sounds. absent: Distended, Guarding, Tenderness - Rectal Exam Rectal Exam: Deferred - Extremities Exam Extremities Exam: Full ROM, Normal Inspection - Neurological Exam Neurological Exam: Alert, Awake, Oriented x3 - Psychiatric Exam Psychiatric exam: Normal Affect, Normal Mood - Skin Skin Exam: Dry, Intact, Normal Color, Warm Assessment and Plan - Assessment and Plan (Free Text) Assessment: This is a 87yM with a history of laryngeal cancer s/p chemo/radiation therapy, CAD s/p CABG, recent PEG tube removal earlier this month presenting with complaints of diarrhea. 1. Diarrhea 2. Colitis 3. Hx of laryngeal cancer 4. CAD/CABG 5. Hyperlipidemia 6. Hypothyroidism Plan: -Continue supportive care with pain control and anti-emetics -Continue full liquid diet as tolerated -Continue empiric vancomycin po coverage for c-difficile given pancolitis -Continue flagyl -Cdiff and other stool studies pending -Monitor and replete electrolytes, hypokalemia -Patient may benefit from outpatient colonoscopy following resolution of acute colitis -Will continue to follow closely <Eliazar Newman - Last Filed: 04/01/18 09:15> Objective - Vital Signs/Intake and Output Vital Signs (last 24 hours): Temp Pulse Resp BP Pulse Ox 98.5 F 82 18 112/60 100 04/01/18 06:00 04/01/18 08:19 04/01/18 06:00 04/01/18 06:00 04/01/18 06:00 Intake and Output: 04/01/18 04/01/18 06:59 18:59 Intake Total 360 720 Output Total 300 Balance 60 720 - Medications Medications: Current Medications Arformoterol Tartrate (Brovana) 15 mcg IH [id number] REPLACED BY [facility] Last Admin: 04/01/18 08:19 Dose: 15 mcg Aspirin (Ecotrin) 81 mg PO DAILY REPLACED BY [facility] Last Admin: 03/31/18 09:07 Dose: 81 mg Atorvastatin Calcium (Lipitor) 10 mg PO DIN REPLACED BY [facility] Last Admin: 03/31/18 17:47 Dose: 10 mg Budesonide (Pulmicort Respules) 0.5 mg IH [id number] REPLACED BY [facility] Last Admin: 04/01/18 08:20 Dose: 0.5 mg Enoxaparin Sodium (Lovenox) 50 mg SC Q12H REPLACED BY [facility] PRN Reason: Protocol Last Admin: 03/31/18 23:10 Dose: 50 mg Famotidine (Pepcid) 20 mg PO HS REPLACED BY [facility] Last Admin: 03/31/18 23:09 Dose: 20 mg Gabapentin (Neurontin) 800 mg PO TID [facility] PRN Reason: Protocol Last Admin: 03/31/18 17:05 Dose: Not Given Metronidazole (Flagyl) 500 mg in 100 mls @ 100 mls/hr IVPB Q8 [facility] PRN Reason: Protocol Last Admin: 04/01/18 05:22 Dose: 100 mls/hr Sodium Chloride (Sodium Chloride 0.45%) 1,000 mls @ 60 mls/hr IV .[id number] REPLACED BY [facility] Last Admin: 04/01/18 08:20 Dose: 60 mls/hr Potassium Chloride (Potassium Chloride 20 Meq/100 Ml) 20 meq in 100 mls @ 50 mls/hr IVPB Q2H REPLACED BY [facility] Stop: 04/01/18 11:44 Last Admin: 04/01/18 08:19 Dose: 50 mls/hr Lactobacillus Acidophilus (Bacid Acidophilus) 1 cap PO BID REPLACED BY [facility] Last Admin: 03/31/18 17:47 Dose: 1 cap Levothyroxine Sodium (Synthroid) 50 mcg PO 0600 REPLACED BY [facility] Last Admin: 04/01/18 05:22 Dose: 50 mcg Lidocaine (Lidoderm) 1 ea TD DAILY REPLACED BY [facility] Last Admin: 03/31/18 09:07 Dose: 1 ea Metoprolol Tartrate (Lopressor) 25 mg PO BRKDIN REPLACED BY [facility] Last Admin: 04/01/18 08:19 Dose: 25 mg Mirtazapine (Remeron) 15 mg PO HS REPLACED BY [facility] Last Admin: 03/31/18 23:09 Dose: 15 mg Potassium Chloride (Klor-Con 10) 40 meq PO Q4H REPLACED BY [facility] Stop: 04/01/18 11:46 Last Admin: 04/01/18 08:18 Dose: 40 meq Vancomycin HCl (Vancocin 25 Mg/Ml (Oral Use)) 250 mg PO QID [facility] PRN Reason: Protocol Last Admin: 03/31/18 23:09 Dose: 250 mg - Labs Labs: 04/01/18 06:00 04/01/18 06:00 PT 12.7 SECONDS (9.4-12.5) H 03/30/18 17:40 INR 1.11 03/30/18 17:40 APTT 23.6 Seconds (25.1-36.5) L 03/30/18 17:40 Attending/Attestation - Attestation I have personally seen and examined this patient.: Yes I have fully participated in the care of the patient.: Yes I have reviewed all pertinent clinical information, including history, physical exam and plan: Yes Notes (Text): 04/01/18 09:13 I have seen and examined patient with GI fellow. No acute events overnight, no bowel movements overnight or this morning thus far. He denies abdominal pain, nausea, vomiting, fever/chills. Tolerating PO liquids without difficulty. Review of vitals from today are normal. History of laryngeal cancer s/p chemo/radiation CAD/CABG Diarrhea - colitis of unclear etiology though suspect infectious given clinical presentation - Continue with antibiotic therapy as per ID - Advance diet as tolerated - Awaiting results of stool studies - Continue to monitor and replete electrolytes - Patient would likely benefit from outpatient elective colonoscopy following resolution of acute medical condition. Will continue to monitor patient clinical course.
[2018-04-01] MEDS: Potassium Chloride 10 mEq ER Tab PO SCH ×2 (08:18→11:39)
[2018-04-01] MEDS: Arformoterol 15 mcg/2 ml Inh Sol IH SCH ×2 (08:19→19:57)
[2018-04-01] MEDS: Budesonide 0.5 mg/2 ml Inhal Susp UD IH SCH ×2 (08:20→19:57)
[2018-04-01] MEDS: Sodium Chloride 0.45% 1,000 ML IV SCH (08:20)
--- NOTE | 2018-04-01 08:57 | PN ---
Copied To: Virgil Eng MD Attending MD: Virgil Eng MD DATE: 04/01/2018 CARDIOLOGY FOLLOWUP SUBJECTIVE: The patient is in bed. He had multiple episodes of diarrhea yesterday. No chest pain noted. PHYSICAL EXAMINATION: VITAL SIGNS: Stable. NECK: Negative JVD. LUNGS: Decreased breath sounds. HEART: Reveal S1, S2. EXTREMITIES: Without edema. LABORATORY DATA: Troponins are on a descending trend. The potassium is 2.8, replacement has been ordered. IMPRESSION: 1. Non-ST elevation myocardial infarction. 2. Colitis. 3. Persistent diarrhea. 4. Hypokalemia. 5. History of laryngeal carcinoma. Given these findings, we will aggressively replace the potassium. We will check magnesium today. We will continue the subcu Lovenox as well as the beta-blockers for his non-STEMI. No plans at this time for invasive cardiac workup. Virgil Eng MD
[2018-04-01] MEDS: Lidocaine 5% Patch TD SCH (10:55)
[2018-04-01] MEDS: Lactobacillus Acidophilus 500 MU Cap PO SCH ×2 (10:55→17:33)
[2018-04-01] MEDS: Vancomycin 25 MG/ML PO SCH ×4 (11:16→21:40)
[2018-04-01] MEDS: Enoxaparin 60 mg Syringe SC SCH (11:39)
--- NOTE | 2018-04-01 11:50 | CP.PCM.PN ---
Subjective - Date & Time of Evaluation Date of Evaluation: 04/01/18 Time of Evaluation: 11:25 - Subjective Subjective: Still with diarrhea but a little bit improved, no fevers, not in distress. Objective - Vital Signs/Intake and Output Vital Signs (last 24 hours): Temp Pulse Resp BP Pulse Ox 98.4 F 86 20 99/49 L 99 03/30/18 22:39 03/31/18 09:23 03/30/18 22:39 03/31/18 09:23 03/30/18 22:39 Intake and Output: 03/31/18 03/31/18 06:59 18:59 Intake Total 180 Output Total 1 Balance 179 - Medications Medications: Current Medications Arformoterol Tartrate (Brovana) 15 mcg IH [id number] [facility] Last Admin: 03/31/18 07:14 Dose: 15 mcg Aspirin (Ecotrin) 81 mg PO DAILY [facility] Last Admin: 03/31/18 09:07 Dose: 81 mg Atorvastatin Calcium (Lipitor) 10 mg PO DIN [facility] Budesonide (Pulmicort Respules) 0.5 mg IH [id number] [facility] Last Admin: 03/31/18 07:14 Dose: 0.5 mg Enoxaparin Sodium (Lovenox) 50 mg SC Q12H [facility] PRN Reason: Protocol Last Admin: 03/31/18 12:28 Dose: 50 mg Famotidine (Pepcid) 20 mg PO HS [facility] Fentanyl (Duragesic) 1 patch TD Q3D [facility] Gabapentin (Neurontin) 800 mg PO TID [facility] PRN Reason: Protocol Last Admin: 03/31/18 14:07 Dose: Not Given Metronidazole (Flagyl) 500 mg in 100 mls @ 100 mls/hr IVPB Q8 [facility] PRN Reason: Protocol Last Admin: 03/31/18 14:05 Dose: 100 mls/hr Sodium Chloride (Sodium Chloride 0.45%) 1,000 mls @ 60 mls/hr IV .[id number] [facility] Last Admin: 03/31/18 12:28 Dose: 60 mls/hr Lactobacillus Acidophilus (Bacid Acidophilus) 1 cap PO BID [facility] Last Admin: 03/31/18 09:06 Dose: 1 cap Levothyroxine Sodium (Synthroid) 50 mcg PO 0600 [facility] Last Admin: 03/31/18 05:50 Dose: 50 mcg Lidocaine (Lidoderm) 1 ea TD DAILY [facility] Last Admin: 03/31/18 09:07 Dose: 1 ea Metoprolol Tartrate (Lopressor) 25 mg PO BRKDIN [facility] Last Admin: 03/31/18 09:23 Dose: Not Given Mirtazapine (Remeron) 15 mg PO HS [facility] Vancomycin HCl (Vancocin 25 Mg/Ml (Oral Use)) 250 mg PO QID [facility] PRN Reason: Protocol Last Admin: 03/31/18 14:06 Dose: 250 mg - Labs Labs: 03/31/18 06:30 03/31/18 07:00 PT 12.7 SECONDS (9.4-12.5) H 03/30/18 17:40 INR 1.11 03/30/18 17:40 APTT 23.6 Seconds (25.1-36.5) L 03/30/18 17:40 - Constitutional Appears: Cachectic, Chronically Ill - Head Exam Head Exam: NORMAL INSPECTION - Neck Exam Neck Exam: absent: Meningismus - Respiratory Exam Respiratory Exam: Decreased Breath Sounds Additional comments: right anterior chest wall port in place - Cardiovascular Exam Cardiovascular Exam: +S1, +S2 - GI/Abdominal Exam GI & Abdominal Exam: Soft. absent: Tenderness Assessment and Plan - Assessment and Plan (Free Text) Plan: Assessment C. diff. 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
--- NOTE | 2018-04-01 13:40 | PN ---
Copied To: Demetrius Montero DO Attending MD: Demetrius Montero DO DATE: 04/01/2018 SUBJECTIVE: I saw him resting comfortably in bed. He is still having diarrhea, it is not as bad. Overall, he is fairly comfortable. He is here for colitis, pancolitis, C. diff, and UTI. He is being seen by Infectious Disease, GI, Cardiology, and Oncology. He is on IV fluids, Bacid, Brovana, Duragesic patch, Ecotrin, Flagyl IV, potassium replacement, Lidoderm, Lipitor, Lopressor, Lovenox, Neurontin, Pepcid, Pulmicort, Remeron, IV fluids, levothyroxine and vancomycin orally for C. diff. PHYSICAL EXAMINATION: VITAL SIGNS: He has 98.5 temperature, 78 pulse, 112/60 blood pressure, 18 respiratory rate, 100% O2 sat. HEENT: His head is atraumatic, normocephalic. HEART: Regular rate. LUNGS: Decreased breath sounds, but clear. ABDOMEN: Soft. Positive bowel sounds. No guarding. No rebound. No CVA tenderness. EXTREMITIES: No edema. He is weak and is getting some physical therapy. LABORATORY DATA: He has a white count of 9.6 , best it has been; 10 hemoglobin; 31.6 hematocrit with 276 platelets. He has a 142 sodium, potassium dropped to 2.8 and given some K-riders diarrhea, BUN 8, creatinine 0.8, GFR is greater than 60, sugar is 95, calcium is 8. Total bilirubin 0.4, AST is 18, ALT is 27, alkaline phosphatase is 55. Troponin I is 0.08, it was 0.11, trending down. Total protein is 5.2, albumin is 2.4. Urine showed moderate bacteria. We will continue with aggressive treatment and care on Jw Vila. Demetrius Montero DO [facility]
--- NOTE | 2018-04-01 14:33 | CP.PCM.PN ---
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 Patient seen and examined at bedside. No acute events overnight. Patient states that he feels generalized weakness, report 6-7 watery, nonbloody BMs yesterday. No BMs this AM. Denies fevers, chills, nausea, vomiting, abdominal pain. Tolerating full liquid diet well. Reports that his appetite is better than yesterday, and he is trying to eat more. Objective - Vital Signs/Intake and Output Vital Signs (last 24 hours): Temp Pulse Resp BP Pulse Ox 98 F 63 18 128/58 L 100 04/01/18 12:00 04/01/18 12:00 04/01/18 12:00 04/01/18 12:00 04/01/18 06:00 Intake and Output: 04/01/18 04/01/18 06:59 18:59 Intake Total 360 720 Output Total 300 Balance 60 720 - Medications Medications: Current Medications Arformoterol Tartrate (Brovana) 15 mcg IH [id number] [facility] Last Admin: 04/01/18 08:19 Dose: 15 mcg Aspirin (Ecotrin) 81 mg PO DAILY [facility] Last Admin: 04/01/18 10:56 Dose: 81 mg Atorvastatin Calcium (Lipitor) 10 mg PO DIN [facility] Last Admin: 03/31/18 17:47 Dose: 10 mg Budesonide (Pulmicort Respules) 0.5 mg IH [id number] [facility] Last Admin: 04/01/18 08:20 Dose: 0.5 mg Enoxaparin Sodium (Lovenox) 50 mg SC Q12H [facility] PRN Reason: Protocol Last Admin: 04/01/18 11:39 Dose: 50 mg Famotidine (Pepcid) 20 mg PO HS [facility] Last Admin: 03/31/18 23:09 Dose: 20 mg Gabapentin (Neurontin) 800 mg PO TID [facility] PRN Reason: Protocol Last Admin: 04/01/18 13:58 Dose: 800 mg Metronidazole (Flagyl) 500 mg in 100 mls @ 100 mls/hr IVPB Q8 [facility] PRN Reason: Protocol Last Admin: 04/01/18 13:58 Dose: 100 mls/hr Sodium Chloride (Sodium Chloride 0.45%) 1,000 mls @ 60 mls/hr IV .[id number] [facility] Last Admin: 04/01/18 08:20 Dose: 60 mls/hr Lactobacillus Acidophilus (Bacid Acidophilus) 1 cap PO BID [facility] Last Admin: 04/01/18 10:55 Dose: 1 cap Levothyroxine Sodium (Synthroid) 50 mcg PO 0600 [facility] Last Admin: 04/01/18 05:22 Dose: 50 mcg Lidocaine (Lidoderm) 1 ea TD DAILY [facility] Last Admin: 04/01/18 10:55 Dose: 1 ea Metoprolol Tartrate (Lopressor) 25 mg PO BRKDIN [facility] Last Admin: 04/01/18 08:19 Dose: 25 mg Mirtazapine (Remeron) 15 mg PO HS [facility] Last Admin: 03/31/18 23:09 Dose: 15 mg Vancomycin HCl (Vancocin 25 Mg/Ml (Oral Use)) 250 mg PO QID [facility] PRN Reason: Protocol Last Admin: 04/01/18 13:59 Dose: 250 mg - Labs Labs: 04/01/18 06:00 04/01/18 06:00 PT 12.7 SECONDS (9.4-12.5) H 03/30/18 17:40 INR 1.11 03/30/18 17:40 APTT 23.6 Seconds (25.1-36.5) L 03/30/18 17:40 - Constitutional Appears: Non-toxic, Cachectic, Chronically Ill - Head Exam Head Exam: ATRAUMATIC, NORMOCEPHALIC - Eye Exam Eye Exam: EOMI, PERRL. absent: Conjunctival injection, Nystagmus, Scleral icterus Pupil Exam: NORMAL ACCOMODATION, PERRL. absent: Irregular, Miosis, Mydriatic, Unequal - ENT Exam ENT Exam: Mucous Membranes Moist - Neck Exam Neck Exam: Full ROM - Respiratory Exam Respiratory Exam: Clear to Ausculation Bilateral, NORMAL BREATHING PATTERN. absent: Chest Wall Tenderness, Rales, Rhonchi, Wheezes, Stridor - Cardiovascular Exam Cardiovascular Exam: RRR, +S1, +S2. absent: Murmur - GI/Abdominal Exam GI & Abdominal Exam: Soft, Normal Bowel Sounds. 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 2 small faint elliptical/cylindrical shaped areas faint increased FDG activity in right aspect of neck just dorsal to SCM muscles and another located just deep to right palatine tonsil. f/u CAT scan of neck. ENT consulted for these findings for a possible biopsy. - Will monitor Case discussed with Dr Smith.
--- NOTE | 2018-04-01 17:29 | CP.PCM.CON ---
History of Present Illness - History of Present Illness History of Present Illness: ENT Consult Note for Dr. 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 Pt had hx recently being screened positive for C. diff infection and was started on Flagyl. Pt on admission had multiple episodes of diarrhea associated with mild abdominal pain. Reason for ENT consult was due to recent PET scan on 03/28/18 demonstrating findings showing nonspecific rounded focus of intense FDG activity in mid sublingual region with no obvious associated mass, and 2 small faint elliptical/cylindrical shaped areas faint increased FDG activity in right aspect of neck just dorsal to SCM muscles and another located just deep to right palatine tonsil, and consideration for possible biopsy of affected areas. Pt states today he only had 1 episode of watery, non-bloody diarrhea. Denies fever, chills, chest pain, sob, n/v/d/c, worsening dysphagia, problems with eating/drinking PO, constipation, abd pain, or other symptoms. Dr. Savage performed bedside laryngoscope, no evidence of mass, but edema and mucus present. PMhx: as described above PSurgHx: none Allergies: NKDA Soc hx: former smoker, no EtOH use Fam hx: reviewed, pt denies hx of colorectal or GI malignancy 12-point ROS reviewed and as per HPI, otherwise negative. PMD: Dr. Montero Review of Systems - Constitutional Constitutional: absent: As Per HPI, Anorexia, Chills, Daytime Sleepiness, Excessive Sweating, Fatigue, Fever, Frequent Falls, Headache, Increased Appetite , Lethargy, Malaise, Night Sweats, Snoring, Sleep Apnea, Weight Gain, Weight Loss, Weakness, Other - EENT Nose/Mouth/Throat: absent: Epistaxis, Nasal Congestion, Nasal Discharge, Sinus Pain, Sinus Pressure, Dysphagia, Hoarsness, Throat Swelling, Tongue Swelling, Facial Pain, Neck Pain - Cardiovascular Cardiovascular: absent: Chest Pain, Dyspnea on Exertion - Respiratory Respiratory: absent: Cough, Dyspnea on Exertion, Wheezing, Pain with Coughing - Gastrointestinal Gastrointestinal: Diarrhea, Loose Stools. absent: Abdominal Pain, Constipation , Excessive Flatus, Nausea, Vomiting Past Patient History - Infectious Disease Hx of Infectious Diseases: None - Past Social History Smoking Status: Former Smoker - CARDIAC Hx Cardiac Disorders: Yes Hx Hypercholesterolemia: Yes Hx Hypertension: Yes Other/Comment: open heart 2015, angioplasty - PULMONARY Hx Chronic Obstructive Pulmonary Disease (COPD): Yes - NEUROLOGICAL Hx Neurological Disorder: No - HEENT Hx HEENT Problems: Yes Hx Cataracts: Yes (b/l sx) Hx Difficulty Chewing: Yes Other/Comment: THROAT CA, had peg tube was removed 5-6 weeks ago - RENAL Hx Chronic Kidney Disease: No - ENDOCRINE/METABOLIC Hx Endocrine Disorders: Yes Hx Hypothyroidism: Yes - HEMATOLOGICAL/ONCOLOGICAL Hx Blood Disorders: Yes Hx Cancer: Yes (laryngeal, 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) Hx Chemotherapy: Yes Other/Comment: completed chemo and radiation 3-4 months ago, pt was dx with laryngeal ca 2016 - INTEGUMENTARY Hx Dermatological Problems: Yes Other/Comment: buttocks reddened no openings, b/l feet thick toenails, left foot bottom of foot dry flakey skin and redness, tip of great toe red with small 0.5cm round deep red sore, bunyon reddened, hx of radiation dermatitis, prior unspecified skin tumors - MUSCULOSKELETAL/RHEUMATOLOGICAL Hx Musculoskeletal Disorders: Yes Hx Falls: No Hx Unsteady Gait: Yes - GASTROINTESTINAL Hx Gastrointestinal Disorders: Yes (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) HX Swallowing Problems: Yes Other/Comment: + c dif, weight loss, poor appetite - GENITOURINARY/GYNECOLOGICAL Hx Genitourinary Disorders: No - PSYCHIATRIC Hx Psychophysiologic Disorder: No Hx Substance Use: No - SURGICAL HISTORY Hx Surgeries: Yes Hx Joint Replacement: Yes (left shldr) Hx Musculoskeletal Surgery: Yes (R/L Foot, R-ankle) Other/Comment: peg tube in and out, rcw pac, left knee replacement, left trigger finger sx, deviated septum x2, r ankle fx playing baseball 195 x2 sx has hardware, lower back sx, left shoulder replacement, rotator cuff x4, colonoscopy x4, r foot sx great toe overlapping other toes - ANESTHESIA Hx Anesthesia Reactions: No Hx Malignant Hyperthermia: No Meds Allergies/Adverse Reactions: Allergies Allergy/AdvReac Type Severity Reaction Status Date / Time No Known Allergies Allergy Verified 03/30/18 16:59 - Medications Medications: Current Medications Arformoterol Tartrate (Brovana) 15 mcg IH [id number] [facility] Last Admin: 04/01/18 08:19 Dose: 15 mcg Aspirin (Ecotrin) 81 mg PO DAILY [facility] Last Admin: 04/01/18 10:56 Dose: 81 mg Atorvastatin Calcium (Lipitor) 10 mg PO DIN [facility] Last Admin: 03/31/18 17:47 Dose: 10 mg Budesonide (Pulmicort Respules) 0.5 mg IH [id number] [facility] Last Admin: 04/01/18 08:20 Dose: 0.5 mg Enoxaparin Sodium (Lovenox) 50 mg SC Q12H [facility] PRN Reason: Protocol Last Admin: 04/01/18 11:39 Dose: 50 mg Famotidine (Pepcid) 20 mg PO HS [facility] Last Admin: 03/31/18 23:09 Dose: 20 mg Gabapentin (Neurontin) 800 mg PO TID [facility] PRN Reason: Protocol Last Admin: 04/01/18 13:58 Dose: 800 mg Metronidazole (Flagyl) 500 mg in 100 mls @ 100 mls/hr IVPB Q8 [facility] PRN Reason: Protocol Last Admin: 04/01/18 13:58 Dose: 100 mls/hr Sodium Chloride (Sodium Chloride 0.45%) 1,000 mls @ 60 mls/hr IV .[id number] [facility] Last Admin: 04/01/18 08:20 Dose: 60 mls/hr Lactobacillus Acidophilus (Bacid Acidophilus) 1 cap PO BID [facility] Last Admin: 04/01/18 10:55 Dose: 1 cap Levothyroxine Sodium (Synthroid) 50 mcg PO 0600 [facility] Last Admin: 04/01/18 05:22 Dose: 50 mcg Lidocaine (Lidoderm) 1 ea TD DAILY [facility] Last Admin: 04/01/18 10:55 Dose: 1 ea Metoprolol Tartrate (Lopressor) 25 mg PO BRKDIN [facility] Last Admin: 04/01/18 08:19 Dose: 25 mg Mirtazapine (Remeron) 15 mg PO HS [facility] Last Admin: 03/31/18 23:09 Dose: 15 mg Vancomycin HCl (Vancocin 25 Mg/Ml (Oral Use)) 250 mg PO QID [facility] PRN Reason: Protocol Last Admin: 04/01/18 13:59 Dose: 250 mg Physical Exam - Constitutional Appears: Non-toxic, No Acute Distress, Chronically Ill - Head Exam Head Exam: ATRAUMATIC, NORMAL INSPECTION - Eye Exam Eye Exam: EOMI, Normal appearance, PERRL - ENT Exam ENT Exam: Mucous Membranes Moist, Normal Oropharynx - Neck Exam Neck exam: Positive for: Full Rom, Normal Inspection Additional comments: No lymphadenopathy - Respiratory Exam Respiratory Exam: Clear to Auscultation Bilateral, NORMAL BREATHING PATTERN - Cardiovascular Exam Cardiovascular Exam: REGULAR RHYTHM, +S1, +S2 - GI/Abdominal Exam GI & Abdominal Exam: Normal Bowel Sounds, Soft Additional comments: No tenderness to palpation, normal bowel sounds x4 - Extremities Exam Extremities exam: Positive for: full ROM, normal capillary refill, normal inspection, pedal pulses present - Back Exam Back exam: FULL ROM, NORMAL INSPECTION - Neurological Exam Neurological exam: Alert, CN II-XII Intact, Oriented x3 - Skin Skin Exam: Dry, Intact, Normal Color, Warm Results - Vital Signs Recent Vital Signs: Last Vital Signs Temp 98 F 04/01/18 12:00 Pulse 72 04/01/18 14:00 Resp 18 04/01/18 12:00 BP 128/58 L 04/01/18 12:00 Pulse Ox 100 04/01/18 06:00 - Labs Result Diagrams: 04/01/18 06:00 04/01/18 06:00 Labs: Laboratory Results - last 24 hr 04/01/18 04/01/18 04/01/18 06:00 06:00 06:00 WBC 9.6 RBC 3.58 Hgb 10.0 L Hct 31.6 L MCV 88.3 MCH 27.9 MCHC 31.6 RDW 14.0 Plt Count 276 MPV 10.2 Sodium 142 Potassium 2.8 L* Chloride 104 Carbon Dioxide 29 Anion Gap 11 BUN 8 Creatinine 0.8 Est GFR ( Amer) > 60 Est GFR (Non-Af Amer) > 60 Random Glucose 95 Calcium 8.0 L Magnesium 1.8 Total Bilirubin 0.4 AST 18 ALT 27 Alkaline Phosphatase 55 Total Protein 5.2 L Albumin 2.4 L Globulin 2.8 Albumin/Globulin Ratio 0.9 L Assessment & Plan - Assessment and Plan (Free Text) Assessment: 87 year old male with PMH Stage IV laryngeal cancer s/p concurrent chemo ( Erbitux) and radiation therapy, CAD/CABG, HLD, hypothyroidism, presents for nausea, vomiting, watery diarrheal episodes, found to have C diff colitis. Plan: C/w medical management for C. diff infection Pt can f/u as outpatient after d/c at Dr. Savage's office for further work- up and possible biopsy of areas on PET scan Further recommendations as per Dr. Hussein Geiger, DO PGY-1
[2018-04-02] MEDS: Sodium Chloride 0.45% 1,000 ML IV SCH (02:59)
[2018-04-02 05:09] VITALS: O2SAT 99
[2018-04-02] MEDS: metroNIDAZOLE IV 500 mg/100 ml 500 MG/100 ML BAG IVPB SCH (06:10)
[2018-04-02] MEDS: Levothyroxine 50 MCG TAB PO SCH (06:10)
[2018-04-02 07:10] LABS: HEMOGLOBIN 11.2 g/dL (14.0-18.0); MEAN CELL VOLUME 89.2 fl (80.0-105.0); MEAN CORPUSCULAR HEMOGLOBIN 28.1 pg (25.0-35.0); MEAN CORPUSCULAR HGB CONC 31.5 g/dl (31.0-37.0); MEAN PLATELET VOLUME 9.7 fl (7.0-11.0); RBC 3.98 10^6/uL (3.5-6.1); WHITE BLOOD COUNT 11.3 10^3/ul (4.5-11.0)
[2018-04-02 07:24] LABS: ALB/GLOB RATIO 0.9 (1.1-1.8); ALBUMIN 2.8 g/dL (3.0-4.8); ALT/SGPT 21 U/L (7-56); AST/SGOT 19 U/L (17-59); BLOOD UREA NITROGEN 6 mg/dL (7-21); CALCIUM 8.2 mg/dL (8.4-10.5); GFR AFRICAN-AMERICAN > 60; GFR NON-AFRICAN AMERICAN > 60
[2018-04-02] MEDS: Arformoterol 15 mcg/2 ml Inh Sol IH SCH (08:24)
[2018-04-02] MEDS: Budesonide 0.5 mg/2 ml Inhal Susp UD IH SCH (08:24)
--- NOTE | 2018-04-02 09:08 | CP.PCM.PN ---
<Jaelyn Beltran - Last Filed: 04/02/18 09:08> Subjective - Date & Time of Evaluation Date of Evaluation: 04/02/18 Time of Evaluation: 08:00 - Subjective Subjective: GI Fellow PGY5 Progress Note Pt seen and evaluated at bedside, pt doing well with no abdominal pain. Tolerating diet. No more diarrhea per pt. ROS: A 12pt ROS was negative except as above. Objective - Vital Signs/Intake and Output Vital Signs (last 24 hours): Temp Pulse Resp BP Pulse Ox 99.2 F 85 19 152/69 H 99 04/02/18 06:00 04/02/18 08:58 04/02/18 06:00 04/02/18 08:58 04/02/18 06:00 Intake and Output: 04/02/18 04/02/18 06:59 18:59 Intake Total 1080 Output Total 1050 Balance 30 - Medications Medications: Current Medications Arformoterol Tartrate (Brovana) 15 mcg IH [id number] [facility] Last Admin: 04/02/18 08:24 Dose: 15 mcg Aspirin (Ecotrin) 81 mg PO DAILY [facility] Last Admin: 04/01/18 10:56 Dose: 81 mg Atorvastatin Calcium (Lipitor) 10 mg PO DIN [facility] Last Admin: 04/01/18 17:33 Dose: 10 mg Budesonide (Pulmicort Respules) 0.5 mg IH [id number] [facility] Last Admin: 04/02/18 08:24 Dose: 0.5 mg Enoxaparin Sodium (Lovenox) 50 mg SC Q12H [facility] PRN Reason: Protocol Last Admin: 04/02/18 00:00 Dose: 50 mg Famotidine (Pepcid) 20 mg PO HS [facility] Last Admin: 04/01/18 21:25 Dose: 20 mg Gabapentin (Neurontin) 800 mg PO TID [facility] PRN Reason: Protocol Last Admin: 04/01/18 17:34 Dose: 800 mg Metronidazole (Flagyl) 500 mg in 100 mls @ 100 mls/hr IVPB Q8 [facility] PRN Reason: Protocol Last Admin: 04/02/18 06:10 Dose: 100 mls/hr Sodium Chloride (Sodium Chloride 0.45%) 1,000 mls @ 60 mls/hr IV .[id number] [facility] Last Admin: 08/14/18 02:59 Dose: 60 mls/hr Lactobacillus Acidophilus (Bacid Acidophilus) 1 cap PO BID [facility] Last Admin: 04/01/18 17:33 Dose: 1 cap Levothyroxine Sodium (Synthroid) 50 mcg PO 0600 [facility] Last Admin: 04/02/18 06:10 Dose: 50 mcg Lidocaine (Lidoderm) 1 ea TD DAILY [facility] Last Admin: 04/01/18 10:55 Dose: 1 ea Metoprolol Tartrate (Lopressor) 25 mg PO BRKDIN [facility] Last Admin: 04/02/18 08:58 Dose: 25 mg Mirtazapine (Remeron) 15 mg PO HS [facility] Last Admin: 04/01/18 21:25 Dose: 15 mg Vancomycin HCl (Vancocin 25 Mg/Ml (Oral Use)) 250 mg PO QID [facility] PRN Reason: Protocol Last Admin: 04/01/18 21:40 Dose: 250 mg - Labs Labs: 04/02/18 06:30 04/02/18 06:30 PT 12.7 SECONDS (9.4-12.5) H 03/30/18 17:40 INR 1.11 03/30/18 17:40 APTT 23.6 Seconds (25.1-36.5) L 03/30/18 17:40 - Constitutional Appears: Non-toxic, No Acute Distress - Head Exam Head Exam: ATRAUMATIC, NORMAL INSPECTION, NORMOCEPHALIC - Eye Exam Eye Exam: EOMI, Normal appearance, PERRL Pupil Exam: PERRL - ENT Exam ENT Exam: Mucous Membranes Moist, Normal Exam - Neck Exam Neck Exam: Full ROM, Normal Inspection - Respiratory Exam Respiratory Exam: Clear to Ausculation Bilateral, NORMAL BREATHING PATTERN - Cardiovascular Exam Cardiovascular Exam: REGULAR RHYTHM, RRR, +S1, +S2 - GI/Abdominal Exam GI & Abdominal Exam: Soft, Normal Bowel Sounds. absent: Distended, Guarding, Tenderness, Organomegaly - Rectal Exam Rectal Exam: Deferred - Extremities Exam Extremities Exam: Full ROM, Normal Inspection - Back Exam Back Exam: NORMAL INSPECTION - Neurological Exam Neurological Exam: Alert, Awake, Oriented x3 - Psychiatric Exam Psychiatric exam: Normal Affect, Normal Mood - Skin Skin Exam: Dry, Intact, Normal Color, Warm Assessment and Plan - Assessment and Plan (Free Text) Assessment: This is a 87yM with a history of laryngeal cancer s/p chemo/radiation therapy, CAD s/p CABG, recent PEG tube removal earlier this month presenting with complaints of diarrhea. 1. Diarrhea 2. C. diff Colitis 3. Hx of laryngeal cancer 4. CAD/CABG 5. Hyperlipidemia 6. Hypothyroidism Plan: -Continue supportive care with pain control and anti-emetics -Continue soft diet as tolerated -Continue vancomycin po coverage for c-difficile given pancolitis -Continue flagyl -Cdiff positive -Monitor and replete electrolytes -Patient may benefit from outpatient colonoscopy following resolution of acute colitis -Pt okay for outpt GI followup <Eliazar Newman - Last Filed: 04/02/18 09:17> Objective - Vital Signs/Intake and Output Vital Signs (last 24 hours): Temp Pulse Resp BP Pulse Ox 99.2 F 85 19 152/69 H 99 04/02/18 06:00 04/02/18 08:58 04/02/18 06:00 04/02/18 08:58 04/02/18 06:00 Intake and Output: 04/02/18 04/02/18 06:59 18:59 Intake Total 1080 Output Total 1050 Balance 30 - Medications Medications: Current Medications Arformoterol Tartrate (Brovana) 15 mcg IH [id number] [facility] Last Admin: 04/02/18 08:24 Dose: 15 mcg Aspirin (Ecotrin) 81 mg PO DAILY [facility] Last Admin: 04/01/18 10:56 Dose: 81 mg Atorvastatin Calcium (Lipitor) 10 mg PO DIN [facility] Last Admin: 04/01/18 17:33 Dose: 10 mg Budesonide (Pulmicort Respules) 0.5 mg IH [id number] [facility] Last Admin: 04/02/18 08:24 Dose: 0.5 mg Enoxaparin Sodium (Lovenox) 50 mg SC Q12H [facility] PRN Reason: Protocol Last Admin: 04/02/18 00:00 Dose: 50 mg Famotidine (Pepcid) 20 mg PO HS [facility] Last Admin: 04/01/18 21:25 Dose: 20 mg Gabapentin (Neurontin) 800 mg PO TID [facility] PRN Reason: Protocol Last Admin: 04/01/18 17:34 Dose: 800 mg Metronidazole (Flagyl) 500 mg in 100 mls @ 100 mls/hr IVPB Q8 [facility] PRN Reason: Protocol Last Admin: 04/02/18 06:10 Dose: 100 mls/hr Sodium Chloride (Sodium Chloride 0.45%) 1,000 mls @ 60 mls/hr IV .[id number] [facility] Last Admin: 04/02/18 02:59 Dose: 60 mls/hr Lactobacillus Acidophilus (Bacid Acidophilus) 1 cap PO BID [facility] Last Admin: 04/01/18 17:33 Dose: 1 cap Levothyroxine Sodium (Synthroid) 50 mcg PO 0600 [facility] Last Admin: 04/02/18 06:10 Dose: 50 mcg Lidocaine (Lidoderm) 1 ea TD DAILY [facility] Last Admin: 04/01/18 10:55 Dose: 1 ea Metoprolol Tartrate (Lopressor) 25 mg PO BRKDIN [facility] Last Admin: 04/02/18 08:58 Dose: 25 mg Mirtazapine (Remeron) 15 mg PO HS [facility] Last Admin: 04/01/18 21:25 Dose: 15 mg Vancomycin HCl (Vancocin 25 Mg/Ml (Oral Use)) 250 mg PO QID [facility] PRN Reason: Protocol Last Admin: 04/01/18 21:40 Dose: 250 mg - Labs Labs: 04/02/18 06:30 04/02/18 06:30 PT 12.7 SECONDS (9.4-12.5) H 03/30/18 17:40 INR 1.11 03/30/18 17:40 APTT 23.6 Seconds (25.1-36.5) L 03/30/18 17:40 Attending/Attestation - Attestation I have fully participated in the care of the patient.: Yes I have reviewed all pertinent clinical information, including history, physical exam and plan: Yes Notes (Text): 04/02/18 09:16 Agree with above documentation, patient reports improvement in diarrhea and overall symptoms. Continue with PO Vancomycin for treatment of c-difficile colitis. Patient would benefit from elective outpatient colonoscopy following resolution of acute symptoms. No further planned GI intervention, will sign off case. Please reconsult as necessary, thank you.
--- NOTE | 2018-04-02 09:48 | PN ---
Copied To: Demetrius Montero DO Attending MD: Demetrius Montero DO DATE: 04/02/2018 I started seeing Mr. Vila at the [facility] when he had asked the nurse there to find me a doctor, they introduced me to him. He likes me, I like him. He wants me to with his doctors, they ended up going back to the [facility]. We will, of course, see him on the outpatient monthly on house calls at [facility]. I discussed this with him this morning. He still wants me to be his physician here at [facility]. I am treating him here currently for C. diff colitis, UTI, bibasilar atelectasis and I will continue to see him here. He is being seen by Infectious Disease, Cardiology, GI. PHYSICAL EXAMINATION: GENERAL: He is alert, and oriented. We had a very nice conversation, laughing together. VITAL SIGNS: 99.2 temp, 85 pulse, 152/69 blood pressure, 19 respiratory rate, 99% O2 sat on nasal cannula. HEENT: Head is atraumatic, normocephalic. LUNGS: Decreased breath sounds, but clear. HEART: Regular rate. ABDOMEN: Soft, nontender. Positive bowel sounds. EXTREMITIES: No edema. LABORATORY DATA: He has 138 sodium; potassium is 3.7, much better; BUN 6; creatinine 0.8, GFR is greater than 60, sugar is 102, calcium is 8.2, total bili is 0.3. AST is 19, ALT is 21, alk phos 59, total protein is 5.9, last troponin was 0.08. He has 11.3 white count, 11.2 hemoglobin, 35.5 hematocrit with 285 platelets. MEDICATIONS: He is currently on Bacid, Brovana, Ecotrin, Flagyl IV, Lidoderm, Lipitor, Lopressor, Lovenox, Neurontin, Pepcid, Pulmicort, Remeron, IV fluids, Synthroid and vancomycin p.o. ASSESSMENT AND PLAN: When I get the okay from GI and Infectious Disease, I will send him back to [facility] although I will continue to see him. Hopefully, we can get back going in next 24 hours. This is a patient with Clostridium difficile colitis and urinary tract infection. Demetrius Montero DO [facility] # [id number] BALDO
[2018-04-02] MEDS: Vancomycin 25 MG/ML PO SCH ×2 (10:09→14:12)
--- NOTE | 2018-04-02 12:10 | PN ---
Copied To: Virgil Eng MD Attending MD: Virgil Eng MD DATE: 04/02/2018 CARDIOLOGY FOLLOWUP SUBJECTIVE: The patient is chest pain free. His diarrhea is markedly improved. OBJECTIVE: VITAL SIGNS: Blood pressure is 152/69, heart rate is in the 80s. NECK: Negative JVD. LUNGS: Without rales. HEART: Reveal S1, S2. EXTREMITIES: Without edema. DATA: Hemoglobin is 11.2. Chemistries: BUN and creatinine are unremarkable. IMPRESSION: 1. Status post non-ST elevation myocardial infarction. 2. Coronary artery disease. 3. Diarrhea, which is improving. 4. History of laryngeal carcinoma. Given these findings, we will continue treating his acute coronary syndrome medically. Virgil Eng MD
[2018-04-02] MEDS: Enoxaparin 60 mg Syringe SC SCH ×2 (12:14)
[2018-04-02 12:23] VITALS: BP 109/52; PULSE 62; RESP 18; TEMP 98.5
--- NOTE | 2018-04-02 12:40 | CP.PCM.PN ---
Subjective - Date & Time of Evaluation Date of Evaluation: 04/02/18 Time of Evaluation: 08:30 - Subjective Subjective: Comfortable in bed, no fevers, no abdominal pain, diarrhea is improving, no nausea. Objective - Vital Signs/Intake and Output Vital Signs (last 24 hours): Temp Pulse Resp BP Pulse Ox 98.5 F 82 18 112/60 100 04/01/18 06:00 04/01/18 08:19 04/01/18 06:00 04/01/18 06:00 04/01/18 06:00 Intake and Output: 04/01/18 04/01/18 06:59 18:59 Intake Total 360 720 Output Total 300 Balance 60 720 - Medications Medications: Current Medications Arformoterol Tartrate (Brovana) 15 mcg IH [id number] [facility] Last Admin: 04/01/18 08:19 Dose: 15 mcg Aspirin (Ecotrin) 81 mg PO DAILY [facility] Last Admin: 04/01/18 10:56 Dose: 81 mg Atorvastatin Calcium (Lipitor) 10 mg PO DIN [facility] Last Admin: 03/31/18 17:47 Dose: 10 mg Budesonide (Pulmicort Respules) 0.5 mg IH [id number] [facility] Last Admin: 04/01/18 08:20 Dose: 0.5 mg Enoxaparin Sodium (Lovenox) 50 mg SC Q12H [facility] PRN Reason: Protocol Last Admin: 03/31/18 23:10 Dose: 50 mg Famotidine (Pepcid) 20 mg PO HS [facility] Last Admin: 03/31/18 23:09 Dose: 20 mg Gabapentin (Neurontin) 800 mg PO TID [facility] PRN Reason: Protocol Last Admin: 04/01/18 10:55 Dose: 800 mg Metronidazole (Flagyl) 500 mg in 100 mls @ 100 mls/hr IVPB Q8 [facility] PRN Reason: Protocol Last Admin: 04/01/18 05:22 Dose: 100 mls/hr Sodium Chloride (Sodium Chloride 0.45%) 1,000 mls @ 60 mls/hr IV .[id number] [facility] Last Admin: 04/01/18 08:20 Dose: 60 mls/hr Lactobacillus Acidophilus (Bacid Acidophilus) 1 cap PO BID [facility] Last Admin: 04/01/18 10:55 Dose: 1 cap Levothyroxine Sodium (Synthroid) 50 mcg PO 0600 [facility] Last Admin: 04/01/18 05:22 Dose: 50 mcg Lidocaine (Lidoderm) 1 ea TD DAILY [facility] Last Admin: 04/01/18 10:55 Dose: 1 ea Metoprolol Tartrate (Lopressor) 25 mg PO BRKDIN [facility] Last Admin: 04/01/18 08:19 Dose: 25 mg Mirtazapine (Remeron) 15 mg PO HS [facility] Last Admin: 03/31/18 23:09 Dose: 15 mg Vancomycin HCl (Vancocin 25 Mg/Ml (Oral Use)) 250 mg PO QID [facility] PRN Reason: Protocol Last Admin: 04/01/18 11:16 Dose: 250 mg - Labs Labs: 04/01/18 06:00 04/01/18 06:00 PT 12.7 SECONDS (9.4-12.5) H 03/30/18 17:40 INR 1.11 03/30/18 17:40 APTT 23.6 Seconds (25.1-36.5) L 03/30/18 17:40 - Constitutional Appears: Chronically Ill - Head Exam Head Exam: NORMAL INSPECTION - ENT Exam ENT Exam: Mucous Membranes Moist - Neck Exam Neck Exam: absent: Lymphadenopathy, Meningismus - Respiratory Exam Respiratory Exam: Decreased Breath Sounds Additional comments: right anterior chest wall port in place, site intact and clean - Cardiovascular Exam Cardiovascular Exam: +S1, +S2 - GI/Abdominal Exam GI & Abdominal Exam: Soft. absent: Tenderness Assessment and Plan - Assessment and Plan (Free Text) Plan: Assessment C. diff. 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 Montero overall prognosis is poor
[2018-04-02] MEDS: Lidocaine 5% Patch TD SCH (16:14)
== END 2018-04-02 17:59 | disposition home or self-care (01) | DRG 371 ==
LOC: ED 16:51 → ERH 21:28 → 5RNO 03-31 00:49 → 2RNO 03-31 13:13
PROVIDERS: ADMIT Family Medicine; ATTEND Family Medicine
DX: A04.72 Enterocolitis due to Clostridium difficile, not specified as recurrent (principal); I21.4 Non-ST elevation (NSTEMI) myocardial infarction; J98.11 Atelectasis; N39.0 Urinary tract infection, site not specified; C32.9 Malignant neoplasm of larynx, unspecified; E78.00 Pure hypercholesterolemia, unspecified; E03.9 Hypothyroidism, unspecified; E78.5 Hyperlipidemia, unspecified; E87.6 Hypokalemia; I10 Essential (primary) hypertension; I25.10 Atherosclerotic heart disease of native coronary artery without angina pectoris; J44.9 Chronic obstructive pulmonary disease, unspecified; K57.90 Diverticulosis of intestine, part unspecified, without perforation or abscess without bleeding; Z95.1 Presence of aortocoronary bypass graft; Z87.891 Personal history of nicotine dependence; Z86.14 Personal history of Methicillin resistant Staphylococcus aureus infection; Z93.1 Gastrostomy status

== ENCOUNTER 2018-06-27 17:14 | Inpatient (IN) | payer MEDICARE ==
--- NOTE | 2018-06-27 17:24 | ED PDOC ---
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 Patient states that when he went to use the bathroom, the night before he noticed blood and sedimentation in his urine. Patient denies dysuria, fevers, chills, headache, dizziness, chest pain, shortness of breath, dyspnea on exertion, cough, abdominal pain, nausea, vomiting, diarrhea, back pain, neck pain, or any other complaint. Time/Duration: 24 hours Symptom Course: Unchanged Activities at Onset: Light Context: Home Past Medical History - Provider Review Nursing Documentation Reviewed: Yes - Infectious Disease Hx of Infectious Diseases: None - Cardiac Hx Cardiac Disorders: Yes Hx Hypertension: Yes - Pulmonary Hx Chronic Obstructive Pulmonary Disease (COPD): Yes - Neurological Hx Neurological Disorder: No - HEENT Hx HEENT Disorder: Yes Hx Cataracts: Yes (b/l sx) Hx Difficulty Chewing: Yes Other/Comment: THROAT CA, had peg tube was removed 5-6 weeks ago - Renal Hx Renal Disorder: No - Endocrine/Metabolic Hx Hypothyroidism: Yes - Hematological/Oncological Hx Blood Disorders: Yes Hx Cancer: Yes (laryngeal, 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) Hx Chemotherapy: Yes Other/Comment: completed chemo and radiation 3-4 months ago, pt was dx with laryngeal ca 2016 - Integumentary Hx Dermatological Disorder: Yes Other/Comment: buttocks reddened no openings, b/l feet thick toenails, left foot bottom of foot dry flakey skin and redness, tip of great toe red with small 0.5cm round deep red sore, bunyon reddened, hx of radiation dermatitis, prior unspecified skin tumors - Musculoskeletal/Rheumatological Hx Falls: No - Gastrointestinal Hx Gastrointestinal Disorders: Yes (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) HX Swallowing Problems: Yes Other/Comment: + c dif, weight loss, poor appetite - Genitourinary/Gynecological Hx Genitourinary Disorders: No - Psychiatric Hx Substance Use: No - Surgical History Hx Joint Replacement: Yes (left shldr) Hx Musculoskeletal Surgery: Yes (R/L Foot, R-ankle) Other/Comment: peg tube in and out, rcw pac, left knee replacement, left trigger finger sx, deviated septum x2, r ankle fx playing baseball 1950 x2 sx has hardware, lower back sx, left shoulder replacement, rotator cuff x4, colonoscopy x4, r foot sx great toe overlapping other toes - Anesthesia Hx Anesthesia: Yes Hx Anesthesia Reactions: No Hx Malignant Hyperthermia: No - Suicidal Assessment Feels Threatened In Home Enviroment: No Family/Social History - Physician Review Nursing Documentation Reviewed: Yes Family/Social History: No Known Family HX Smoking Status: Former Smoker Hx Alcohol Use: Yes Hx Substance Use: No Allergies/Home Meds Allergies/Adverse Reactions: Allergies No Known Allergies Allergy (Verified 06/27/18 17:27) Home Medications: Home Meds Medication Instructions Recorded Confirmed RX: Pravastatin Sodium [Pravachol] 20 mg PO DAILY 11/21/17 06/27/18 RX: Famotidine [Pepcid] 20 mg PO HS 02/19/18 06/27/18 RX: Mirtazapine [Remeron] 15 mg PO HS 02/19/18 06/27/18 RX: Multivitamin [Multivitamins] 1 each PO DAILY 02/19/18 06/27/18 Acetaminophen [Tylenol 325mg tab] 650 mg PO Q4 PRN 06/27/18 06/27/18 Amino Acids/Protein Hydrolys 30 ml PO BID 06/27/18 06/27/18 [Prosource No Carb Liquid Pkt] L.acidoph,Paracasei, B.lactis 1 tab PO DAILY 06/27/18 06/27/18 [Probiotic] RX: Levothyroxine [Synthroid] 50 mcg PO DAILY 06/27/18 06/27/18 RX: Vancomycin [Vancocin (ORAL OR 250 mg PO Q6H 06/27/18 06/27/18 RECTAL USE)] Ubidecarenone [Coenzyme Q10] 1 tab PO DAILY 06/27/18 06/27/18 Review of Systems - Physician Review All systems were reviewed & negative as marked: Yes - Review of Systems Constitutional: absent: Fevers Eyes: Normal ENT: Normal Respiratory: Normal. absent: SOB, Cough Cardiovascular: Normal. absent: Chest Pain Gastrointestinal: Normal. absent: Abdominal Pain, Diarrhea, Nausea, Vomiting Genitourinary Male: Hematuria, Urinary Output Changes (sedimentation in urine). absent: Dysuria Musculoskeletal: Normal. absent: Back Pain, Neck Pain Skin: Normal Neurological: Normal. absent: Headache, Dizziness Endocrine: Normal Hemo/Lymphatic: Normal Psychiatric: Normal Physical Exam - Physical Exam Narrative Physical Exam (Text): 06/27/18 17:24 Gen: VS reviewed, alert, well developed, well nourished, nontoxic, mild distress. ENT: normal pharynx. Eye: EOMI, PERRL. Neck: no JVD, supple, no adenopathy. CV: regular rate, regular rhythm, no rubs, no murmur, no gallops, S1, S2, pulses equal and strong. Pulm: no distress, clear to auscultation, no wheeze, no rhonchi, breath sounds equal, no rales. Abd: soft, nontender, no guarding, no rebound, no rigidity, normal bowel sounds. Ext: no edema. Skin: good color, no rash, no cyanosis. Psych: responds appropriately to questions, normal affect. Neuro: oriented x 3, CN2-12 intact grossly, motor intact, sensation intact. Vital Signs Reviewed: Yes Temperature: Afebrile Blood Pressure: Hypertensive Pulse: Regular Respiratory Rate: Normal Appearance: Positive for: Well-Appearing, Non-Toxic, Comfortable Pain Distress: None Mental Status: Positive for: Alert and Oriented X 3 Medical Decision Making ED Course and Treatment: 06/27/18 17:24 Impression: 87 year old male who presents to the emergency department complaining of blood in urine. Plan: -- Labs -- Urine Culture -- Urinalysis -- Reassess and disposition Prior Visits: Notes and results from previous visits were reviewed. Progress Notes: 06/27/18 21:[address] shultz, patient to be admitted for iv abx for uti, Ct negative for stone but shows abnormality of bladder and tumor should be investigated. dr. will for consult as per dr. tracey. patient has been informed of abnormal CT finding and is aware of necessity of urology follow up. patient is currently being tx for c.diff but has not had a bout of diarrhea for approx 6 days. - Lab Interpretations I have reviewed the lab results: Yes - RAD Interpretation Narrative RAD Interpretations (Text): 06/27/18 20:32 CT Abdomen without IV contrast CLINICAL HISTORY: STONE STUDY TECHNIQUE: Axial computed tomography images of the abdomen and pelvis without intravenous contrast. 252.00 mGy-cm CONTRAST: Without COMPARISON: None provided. FINDINGS: LUNG BASES: Scarring of the lung bases. Advanced atherosclerotic changes are present as well as some pericardial calcification. LIVER: Unremarkable. GALLBLADDER AND BILE DUCTS: The gallbladder appears within normal limits. No radioopaque gallstones are seen. No biliary ductal dilatation is evident. PANCREAS: Unremarkable. SPLEEN: Unremarkable. ADRENAL GLANDS: Unremarkable. KIDNEYS, URETERS, AND BLADDER: The kidneys appear within normal limits. There is no hydronephrosis or hydroureter. No urinary calculi are seen. Mild bladder wall thickening along the right posterior lateral aspect of the bladder. Atherosclerotic changes present. STOMACH AND BOWEL: Unremarkable appearance of the stomach and bowel. No evidence of bowel obstruction. No evidence suggesting enteritis or colitis. APPENDIX: No evidence of acute appendicitis on CT examination. PERITONEUM: No free fluid. No free air. LYMPH NODES: No lymphadenopathy is evident. VASCULATURE: Advanced atherosclerotic changes present in aorta and iliac vessels. BONES: No aggressive appearing osseous lesion. No acute osseous pathology evident. IMPRESSION: Scarring at the lung bases. Advanced atherosclerotic changes coronary arteries and thoracic aorta. Pericardial calcification. No mass or obstruction or calculus involving either kidney. Neither ureter dilated. Mild thickening of the right posterior lateral bladder wall. Advanced atherosclerotic change abdominal aorta and iliac vessels. - Scribe Statement The provider has reviewed the documentation as recorded by the Jeffrey Vega Provider Scribe Attestation: All medical record entries made by the Jeffrey were at my direction and personally dictated by me. I have reviewed the chart and agree that the record accurately reflects my personal performance of the history, physical exam, medical decision making, and the department course for this patient. I have also personally directed, reviewed, and agree with the discharge instructions and disposition. Disposition/Present on Arrival - Present on Arrival Any Indicators Present on Arrival: No History of DVT/PE: No History of Uncontrolled Diabetes: No Urinary Catheter: No History Surgical Site Infection Following: None - Disposition Have Diagnosis and Disposition been Completed?: Yes Diagnosis: Hematuria, UTI (urinary tract infection) Disposition: HOSPITALIZED Disposition Time: 21:00 Patient Plan: Admission Patient Problems: Current Active Problems Problem Status Onset Hematuria Acute UTI (urinary tract infection) Acute Condition: STABLE
[2018-06-27 17:30] VITALS: BMI 16.7
[2018-06-27 18:02] LABS: URINE BILIRUBIN NEGATIVE (NEGATIVE); URINE BLOOD LARGE (NEGATIVE); URINE GLUCOSE (UA) NEGATIVE (NEGATIVE); URINE LEUKOCYTE ESTERASE TRACE Leu/uL (NEGATIVE); URINE PROTEIN 30 mg/dL (<30 mg/dL); URINE UROBILINOGEN 0.2 E.U./dL (<1 E.U./dL)
[2018-06-27 18:03] LABS: URINE APPEARANCE CLEAR (CLEAR); URINE COLOR YELLOW (YELLOW)
[2018-06-27 18:10] LABS: URINE BACTERIA MANY (NEG); URINE EPITHELIAL CELLS TNTC /hpf (0-5); URINE RBC TNTC /hpf (0-2)
[2018-06-27 18:50] LABS: BLOOD UREA NITROGEN 21 mg/dL (7-21); CALCIUM 9.3 mg/dL (8.4-10.5); GFR NON-AFRICAN AMERICAN > 60
[2018-06-27 19:03] LABS: ALBUMIN 3.7 g/dL (3.0-4.8); ALT/SGPT 37 U/L (7-56); AST/SGOT 44 U/L (17-59)
[2018-06-27 19:13] LABS: BASO # 0.04 K/mm3 (0.0-2.0); BASO % 0.4 % (0.0-3.0); EOS # 0.7 (0.0-0.7); EOS % 8.1 % (1.5-5.0); GRAN # 5.72 (1.4-6.5); GRAN % 63.1 % (50.0-68.0); HEMOGLOBIN 10.6 g/dL (14.0-18.0); LYMPH # 1.9 (1.2-3.4); LYMPH % 20.8 % (22.0-35.0); MEAN CELL VOLUME 90.3 fl (80.0-105.0); MEAN CORPUSCULAR HEMOGLOBIN 28.4 pg (25.0-35.0); MEAN CORPUSCULAR HGB CONC 31.5 g/dl (31.0-37.0); MEAN PLATELET VOLUME 9.9 fl (7.0-11.0); MONO # 0.7 (0.1-0.6); MONO % 7.6 % (1.0-6.0); RBC 3.73 10^6/uL (3.5-6.1); RED CELL DISTRIBUTION WIDTH 15.2 % (11.5-14.5); WHITE BLOOD COUNT 9.1 10^3/uL (4.5-11.0)
[2018-06-27] MEDS ORDERED: Sodium Chloride 0.45% 1,000 ML IV ONE (20:52)
[2018-06-27] MEDS ORDERED: cefTRIAXone 1 gm 1 GM/100 ML BAG IVPB STA (20:53)
[2018-06-28] MEDS ORDERED: Sodium Chloride 0.45% 1,000 ML IV ONE (08:53)
[2018-06-28] MEDS ORDERED: Vancomycin 500 mg (Oral/Rectal USE) PO SCH (09:00)
[2018-06-28] MEDS ORDERED: UBIDECARENONE PO SCH (10:00)
[2018-06-28] MEDS ORDERED: ACIDOPH PARACASEI B LACTIS PO SCH (10:00)
[2018-06-28] MEDS: ACIDOPH PARACASEI B LACTIS PO SCH (10:01)
[2018-06-28] MEDS: Levothyroxine 50 MCG TAB PO SCH (10:02)
[2018-06-28] MEDS: cefTRIAXone 1 gm 1 GM/100 ML BAG IVPB SCH (10:02)
--- NOTE | 2018-06-28 10:12 | CARD ---
APPROVED REPORT Date of service: 06/27/2018 EKG Measurement Heart [id number] <Conclusion> Sinus rhythm with 1st degree AV block Otherwise normal ECG
--- NOTE | 2018-06-28 10:57 | HP ---
DATE OF EXAM: 06/28/2018 HISTORY OF PRESENT ILLNESS: I know Jw Vila from the atrium at [facility]. He is currently on vancomycin, oral use, for C. diff and his bowels have been normal. Orders on the vancomycin. He is also on coenzyme Q10, Tylenol, vitamins and probiotic, Pravachol, Pepcid, Pepto-Bismol, Remeron, Lopressor, Synthroid and Ecotrin. He presents to the ER having a bloody urine at the atrium at [facility]. It is painless and he was sent to the emergency room where they found a possibility of some kind of cancer in the bladder. He is an 87-year-old white male with a past medical history includes LALO laryngeal carcinoma involving the thyroid, cricoid cartilage. He is on radiation and Erbitux therapy, status post PEG tube for feeds, hypertension, coronary artery disease status post CABG, radiation dermatitis with MRSA, cellulitis, prior unspecified skin tumors who presents to the emergency room, also had C. diff infection on vancomycin p.o. He had blood in the urine now when he went to the bathroom and he also had blood this morning. There is no pain. They did a CAT scan in the ER and they found something in the bladder, so we was called in Urology and positive urine, so he has a little bit of an infection. He has COPD. He had bilateral cataracts, difficulty chewing, throat cancer, had a PEG tube and it was just removed 6 weeks ago, hypothyroid, laryngeal cancer extending to the cricothyroid cartilage. He has completed chemotherapy and radiation 3-4 months ago with diagnosis of laryngeal cancer in 2017. His buttocks is reddened, no openings, bilateral thick toenails, left foot bottom is dry and flaky. There is a sore in the great toe. I will get Podiatry to take a look at that too. Laryngeal cancer status post treatment. He also has C. diff with weight loss, loss of appetite, swallowing problems due to the laryngeal cancer. He had a left shoulder joint replacement. He had surgery on his right and left foot and right ankle, he has PEG tube in and out, left knee replacement, left trigger finger surgery, deviated septum x2, right ankle fracture while playing baseball in 1951 x2, had a hardware, lower back surgery, left shoulder replacement, rotator cuff x4, colonoscopy x4, right foot surgery, great toe overlapping of the toes. FAMILY HISTORY: No known family history. SOCIAL HISTORY: Former smoker, still drinks alcohol. No substance abuse. ALLERGIES: NO KNOWN DRUG ALLERGIES. I went over the medications earlier. REVIEW OF SYSTEMS: No fevers. No acute vision or hearing loss. No shortness of breath or cough. No chest pain or palpitations. No abdominal pain, nausea, vomiting, constipation, diarrhea, on vancomycin. He is actually having normal bowel movements. He is having painless hematuria. Sedimentation in the urine. No back pain or neck pain at this time for the right, now the skin is okay except for the foot. We will get Podiatry look at that. No headache or dizziness. No anxiety or depression. PHYSICAL EXAMINATION: VITAL SIGNS: Temperature 98; 80 pulse; 157/66 blood pressure, also 107/61 blood pressure; 18 respiratory rate and 99% O2 sat on room air. GENERAL: He is comfortable AND resting in bed. He is well developed, well nourished, mild distress. HEENT: Extraocular muscles are intact. Pupils are reactive to light. NECK: No JVD. HEART: Regular rate. Normal S1 and S2. LUNGS: Decreased breath sounds bilaterally but clear to auscultation. There are no wheezes or rhonchi. No rales. ABDOMEN: Soft and nontender. Positive bowel sounds. No guarding, rebound or CVA tenderness. No palpable pressure or tenderness in the lower abdomen, above the bladder. EXTREMITIES: No edema. SKIN: Poor turgor but clear. NEUROLOGIC: Alert and oriented x3. Cranial nerves II-XII grossly intact. Not anxious. Not depressed. LABORATORY DATA: He had multiple tests. He has a 9.1 white count, 10.6 hemoglobin, 32.7 hematocrit with 349,000 platelets. Sodium 139, potassium 4.5, BUN 21, creatinine 0.9, GFR is greater than 60, sugar is 97. Calcium is 9.3, total bili is 0.7, AST is 44, ALT is 37, alk phos 88, total protein is 7.4, albumin is 3.7. He had a urine, it was yellow, 30 protein, large blood, many bacteria and too numerous to count red blood cells. He will have a consult with Urology, I believe with Dr. Gonzalez is consulted, the urologist and also Infectious Disease for urinary tract infection. He will be on at this time IV fluids, Ecotrin, metoprolol, Pepcid, Remeron. He will be on Rocephin IV, levothyroxine, Tylenol, CoQ10 and vancomycin p.o. We will check his labs tomorrow. He has painless hematuria, possible mass in the bladder. The CAT scan of the abdomen and pelvis was not read yet, at least it is not in my computer. He has got C. diff history, painless hematuria, UTI. There is an impression of the CAT scan that shows swelling of the lung bases, advanced atherosclerotic changes, coronary arteries and thoracic aorta, pericardial calcification, no mass or obstruction or calculus involving the other kidney. The ureter dilated with mild thickening of the right posterior lateral bladder wall, advanced atherosclerotic changes, abdominal aortic vessels. We will see what Urology has to say about the mild bladder wall thickening. Demetrius Montero DO MTDDania
--- NOTE | 2018-06-28 11:05 | CT ---
Date of service: 06/27/2018 PROCEDURE: CT Abdomen and Pelvis without intravenous contrast HISTORY: stone study COMPARISON: None. TECHNIQUE: Technique. Contrast dose: Radiation dose: Total exam DLP = 252.0 mGy-cm. This CT exam was performed using one or more of the following dose reduction techniques: Automated exposure control, adjustment of the mA and/or kV according to patient size, and/or use of iterative reconstruction technique. FINDINGS: LOWER THORAX: There is calcification of the pericardium. There is coronary artery calcification LIVER: Unremarkable. No gross lesion or ductal dilatation. GALLBLADDER AND BILE DUCTS: Unremarkable. PANCREAS: Unremarkable. No gross lesion or ductal dilatation. SPLEEN: Unremarkable. ADRENALS: Unremarkable. No mass. KIDNEYS AND URETERS: Unremarkable. No hydronephrosis. No solid mass. VASCULATURE: Unremarkable. No aortic aneurysm. There is extensive vascular calcification of the aorta BOWEL: Unremarkable. No obstruction. No gross mural thickening. There is moderate constipation APPENDIX: Unremarkable. Normal appendix. PERITONEUM: Unremarkable. No free fluid. No free air. LYMPH NODES: Unremarkable. No enlarged lymph nodes. BLADDER: Unremarkable. REPRODUCTIVE: Unremarkable. BONES: No acute fracture. OTHER FINDINGS: The report concurs with the preliminary [facility] report IMPRESSION: No acute intra-abdominal findings
--- NOTE | 2018-06-28 12:39 | CP.PCM.CON ---
History of Present Illness - History of Present Illness History of Present Illness: Podiatry consult note for Dr. Hutson 87 yo male with pmhx of HTN, CAD s/p CABG, radiation dermatitis with MRSA cellulitis, and prior unspecified skin tumors presented to the ED and was admitted for hematuria. Patient seen and examined at bedside with Dr. Hutson. Patient has no complaints with feet, complains of no pain or discomfort in toes or toenails, and reports no acute trauma or issues with feet. Patient denies N/V/F/C/SOB/CP and denies any pain in posterior calves b/l PMHx - HTN, CAD s/p CABG, radiation dermatitis with MRSA cellulitis, and prior unspecified skin tumors PSHx - peg tube in and out, rcw pac, left knee replacement, left trigger finger sx, deviated septum x2, r ankle fx playing baseball 1950 x2 sx has hardware, lower back sx, left shoulder replacement, rotator cuff x4, colonoscopy x4, r foot sx great toe overlapping other toes All - NKDA Past Patient History - Infectious Disease Hx of Infectious Diseases: None - Past Social History Smoking Status: Former Smoker - CARDIAC Hx Cardiac Disorders: Yes (cabg 2014) Hx Hypercholesterolemia: Yes Hx Hypertension: Yes - PULMONARY Hx Respiratory Disorders: Yes Hx Chronic Obstructive Pulmonary Disease (COPD): Yes Hx Pneumonia: Yes - NEUROLOGICAL Hx Neurological Disorder: No - HEENT Hx HEENT Problems: Yes Hx Cataracts: Yes (b/l sx) Hx Difficulty Chewing: Yes Other/Comment: THROAT CA, had peg tube was removed 5-6 weeks ago - RENAL Hx Chronic Kidney Disease: No - ENDOCRINE/METABOLIC Hx Endocrine Disorders: Yes Hx Hypothyroidism: Yes - HEMATOLOGICAL/ONCOLOGICAL Hx Blood Disorders: Yes Hx Cancer: Yes (laryngeal, 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) Hx Chemotherapy: Yes (erbitux) Other/Comment: completed chemo and radiation 3-4 months ago, pt was dx with laryngeal ca 2016 - INTEGUMENTARY Hx Dermatological Problems: Yes Other/Comment: buttocks reddened no openings, b/l feet thick toenails, left foot bottom of foot dry flakey skin and redness, tip of great toe red with small 0.5cm round deep red sore, bunyon reddened, hx of radiation dermatitis, prior unspecified skin tumors - MUSCULOSKELETAL/RHEUMATOLOGICAL Hx Falls: Yes - GASTROINTESTINAL Hx Gastrointestinal Disorders: Yes (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) HX Swallowing Problems: Yes Other/Comment: + c dif, weight loss, poor appetite - GENITOURINARY/GYNECOLOGICAL Hx Genitourinary Disorders: No - PSYCHIATRIC Hx Psychophysiologic Disorder: No - SURGICAL HISTORY Hx Surgeries: Yes Hx Joint Replacement: Yes (left shldr) Hx Musculoskeletal Surgery: Yes (R/L Foot, R-ankle) Other/Comment: peg tube in and out, rcw pac, left knee replacement, left trigger finger sx, deviated septum x2, r ankle fx playing baseball 1950 x2 sx has hardware, lower back sx, left shoulder replacement, rotator cuff x4, colonoscopy x4, r foot sx great toe overlapping other toes - ANESTHESIA Hx Anesthesia: Yes Hx Anesthesia Reactions: No Hx Malignant Hyperthermia: No Meds Allergies/Adverse Reactions: Allergies Allergy/AdvReac Type Severity Reaction Status Date / Time No Known Allergies Allergy Verified 06/27/18 17:27 - Medications Medications: Current Medications Acetaminophen (Tylenol 325mg Tab) 650 mg PO Q6H PRN PRN Reason: Pain, moderate (4-7) Last Admin: 06/28/18 01:11 Dose: 650 mg Aspirin (Ecotrin) 81 mg PO DAILY [facility] Last Admin: 06/28/18 10:02 Dose: 81 mg Famotidine (Pepcid) 20 mg PO HS [facility] Ceftriaxone Sodium (Rocephin 1 Gram Ivpb) 1 gm in 100 mls @ 100 mls/hr IVPB DAILY [facility]; Protocol Last Admin: 06/28/18 10:02 Dose: 100 mls/hr Sodium Chloride (Sodium Chloride 0.45%) 1,000 mls @ 40 mls/hr IV .Q24H ONE Stop: 06/28/18 20:51 Last Admin: 06/28/18 10:03 Dose: 40 mls/hr Levothyroxine Sodium (Synthroid) 50 mcg PO DAILY [facility] Last Admin: 06/28/18 10:02 Dose: 50 mcg Metoprolol Tartrate (Lopressor) 25 mg PO BRKDIN SIA Mirtazapine (Remeron) 15 mg PO HS [facility] Non-Formulary Medication (L.Acidoph,Paracasei, B.Lactis [Probiotic]) 1 tab PO DAILY [facility] Last Admin: 11/09/18 10:01 Dose: Not Given Non-Formulary Medication (Ubidecarenone [Coenzyme Q10]) 1 tab PO DAILY [facility] Vancomycin HCl (Vancocin 25 Mg/Ml (Oral Use)) 250 mg PO Q6H [facility]; Protocol Physical Exam - Constitutional Appears: Well, Non-toxic, No Acute Distress - Extremities Exam Additional comments: Vasc: DP and PT pulses palpable; cap refill <3 seconds to all digits; temp gradient warm to cool from proximal to distal; mild lower extremity edema present b/l Derm: skin temp and turgor are w/n/l; nails have been recently debrided with signs of paronychia or onycholysis; no open lesions or wounds present Ortho: no pathology noted to b/l feet or lower legs; no pain upon ROM of ankle b/l and first MPJ b/l Neuro: sensation intact b/l - Neurological Exam Neurological exam: Alert, Oriented x3 - Psychiatric Exam Psychiatric exam: Normal Affect, Normal Mood Results - Vital Signs Recent Vital Signs: Last Vital Signs Temp 97.4 F L 06/28/18 08:00 Pulse 68 06/28/18 08:00 Resp 18 06/28/18 08:00 BP 107/61 06/28/18 08:00 Pulse Ox 99 06/28/18 08:00 - Labs Result Diagrams: 06/27/18 18:35 06/27/18 18:35 Labs: Laboratory Results - last 24 hr 06/27/18 06/27/18 06/27/18 17:45 18:35 18:35 WBC 9.1 RBC 3.73 Hgb 10.6 L Hct 33.7 L MCV 90.3 D MCH 28.4 MCHC 31.5 RDW 15.2 H Plt Count 349 MPV 9.9 Gran % 63.1 Lymph % (Auto) 20.8 L [place] % (Auto) 7.6 H Eos % (Auto) 8.1 H Baso % (Auto) 0.4 Gran # 5.72 Lymph # (Auto) 1.9 [place] # (Auto) 0.7 H Eos # (Auto) 0.7 Baso # (Auto) 0.04 Sodium 139 Potassium 4.5 Chloride 103 Carbon Dioxide 31 Anion Gap 11 BUN 21 Creatinine 0.9 Est GFR ( Amer) > 60 Est GFR (Non-Af Amer) > 60 Random Glucose 97 Calcium 9.3 Total Bilirubin 0.7 AST 44 ALT 37 Alkaline Phosphatase 88 Total Protein 7.4 Albumin 3.7 Globulin 3.7 Albumin/Globulin Ratio 1.0 L Urine Color Yellow Urine Appearance Clear Urine pH 7.0 Ur Specific [place] 1.010 Urine Protein 30 H Urine Glucose (UA) Negative Urine Ketones Negative Urine Blood Large H Urine Nitrate Negative Urine Bilirubin Negative Urine Urobilinogen 0.2 Ur Leukocyte Esterase Trace H Urine RBC Tntc Urine WBC 5 - 10 Ur Epithelial Cells Tntc Urine Bacteria Many Assessment & Plan - Assessment and Plan (Free Text) Assessment: 87 yo male evaluated for history of foot complaints Plan: Patient seen and evaluated with Dr. Hutson Charts and labs reviewed - afebrile and absent leukocytosis Examination performed, no complaints or acute issues identified Patient can follow up with Dr. Hutson upon discharge if any foot issues present Podiatry to sign off on patient Please re consult if patient has any further acute complaints Thank you for the consult - Date & Time Date: 06/28/18 Time: 12:41
[2018-06-28] MEDS: UBIDECARENONE PO SCH (12:41)
[2018-06-28] MEDS: Vancomycin 25 MG/ML PO SCH ×2 (12:41→17:15)
--- NOTE | 2018-06-28 13:41 | CP.PCM.CON ---
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 diff. colitis was recently in the hospital for C. diff and the patient is being treated with tapering Vancomycin PO. His diarrhea has been improving. This time, he developed blood in this urine for the past 1-2 days and he is admitted for further work up. He denies dysuria, no nausea or vomiting, no flank pain, no diarrhea currently, no headache or dizziness, no abdominal pain, no suprapubic pain, no fever or chills, no chest pain or palpitations, no dysphagia, no cough or colds. Infectious Diseases consult is requested to further evaluate and manage. Review of Systems - Review of Systems All systems: reviewed and no additional remarkable complaints except (as per HPI) Past Patient History - Infectious Disease Hx of Infectious Diseases: None - Past Social History Smoking Status: Former Smoker - CARDIAC Hx Cardiac Disorders: Yes (cabg 2014) Hx Hypercholesterolemia: Yes Hx Hypertension: Yes - PULMONARY Hx Respiratory Disorders: Yes Hx Chronic Obstructive Pulmonary Disease (COPD): Yes Hx Pneumonia: Yes - NEUROLOGICAL Hx Neurological Disorder: No - HEENT Hx HEENT Problems: Yes Hx Cataracts: Yes (b/l sx) Hx Difficulty Chewing: Yes Other/Comment: THROAT CA, had peg tube was removed 5-6 weeks ago - RENAL Hx Chronic Kidney Disease: No - ENDOCRINE/METABOLIC Hx Endocrine Disorders: Yes Hx Hypothyroidism: Yes - HEMATOLOGICAL/ONCOLOGICAL Hx Blood Disorders: Yes Hx Cancer: Yes (laryngeal, 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) Hx Chemotherapy: Yes (erbitux) Other/Comment: completed chemo and radiation 3-4 months ago, pt was dx with l aryngeal ca 2016 - INTEGUMENTARY Hx Dermatological Problems: Yes Other/Comment: buttocks reddened no openings, b/l feet thick toenails, left foot bottom of foot dry flakey skin and redness, tip of great toe red with small 0.5cm round deep red sore, bunyon reddened, hx of radiation dermatitis, prior unspecified skin tumors - MUSCULOSKELETAL/RHEUMATOLOGICAL Hx Falls: Yes - GASTROINTESTINAL Hx Gastrointestinal Disorders: Yes (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) HX Swallowing Problems: Yes Other/Comment: + c dif, weight loss, poor appetite - GENITOURINARY/GYNECOLOGICAL Hx Genitourinary Disorders: No - PSYCHIATRIC Hx Psychophysiologic Disorder: No - SURGICAL HISTORY Hx Surgeries: Yes Hx Joint Replacement: Yes (left shldr) Hx Musculoskeletal Surgery: Yes (R/L Foot, R-ankle) Other/Comment: peg tube in and out, rcw pac, left knee replacement, left trigger finger sx, deviated septum x2, r ankle fx playing baseball 1950 x2 sx has hardware, lower back sx, left shoulder replacement, rotator cuff x4, colonoscopy x4, r foot sx great toe overlapping other toes - ANESTHESIA Hx Anesthesia: Yes Hx Anesthesia Reactions: No Hx Malignant Hyperthermia: No Meds Allergies/Adverse Reactions: Allergies Allergy/AdvReac Type Severity Reaction Status Date / Time No Known Allergies Allergy Verified 06/27/18 17:27 - Medications Medications: Current Medications Acetaminophen (Tylenol 325mg Tab) 650 mg PO Q6H PRN PRN Reason: Pain, moderate (4-7) Last Admin: 06/28/18 01:11 Dose: 650 mg Aspirin (Ecotrin) 81 mg PO DAILY [facility] Last Admin: 06/28/18 10:02 Dose: 81 mg Famotidine (Pepcid) 20 mg PO HS [facility] Ceftriaxone Sodium (Rocephin 1 Gram Ivpb) 1 gm in 100 mls @ 100 mls/hr IVPB DAILY [facility]; Protocol Last Admin: 06/28/18 10:02 Dose: 100 mls/hr Sodium Chloride (Sodium Chloride 0.45%) 1,000 mls @ 40 mls/hr IV .Q24H ONE Stop: 06/28/18 20:51 Last Admin: 06/28/18 10:03 Dose: 40 mls/hr Levothyroxine Sodium (Synthroid) 50 mcg PO DAILY [facility] Last Admin: 06/28/18 10:02 Dose: 50 mcg Metoprolol Tartrate (Lopressor) 25 mg PO BRKDIN [facility] Mirtazapine (Remeron) 15 mg PO HS [facility] Non-Formulary Medication (L.Acidoph,Paracasei, B.Lactis [Probiotic]) 1 tab PO DAILY [facility] Last Admin: 06/28/18 10:01 Dose: Not Given Non-Formulary Medication (Ubidecarenone [Coenzyme Q10]) 1 tab PO DAILY [facility] Last Admin: 06/28/18 12:41 Dose: Not Given Vancomycin HCl (Vancocin 25 Mg/Ml (Oral Use)) 250 mg PO Q6H [facility]; Protocol Last Admin: 06/28/18 12:41 Dose: 250 mg Physical Exam - Constitutional Appears: Cachectic, Chronically Ill - Head Exam Head Exam: NORMAL INSPECTION - ENT Exam ENT Exam: Mucous Membranes Moist - Neck Exam Neck exam: Negative for: Meningismus - Respiratory Exam Respiratory Exam: Decreased Breath Sounds - Cardiovascular Exam Cardiovascular Exam: +S1, +S2 - GI/Abdominal Exam GI & Abdominal Exam: Soft. absent: Tenderness Results - Vital Signs Recent Vital Signs: Last Vital Signs Temp 97.4 F L 06/28/18 08:00 Pulse 68 06/28/18 08:00 Resp 18 06/28/18 08:00 BP 107/61 06/28/18 08:00 Pulse Ox 99 06/28/18 08:00 - Labs Result Diagrams: 06/27/18 18:35 06/27/18 18:35 Labs: Laboratory Results - last 24 hr 06/27/18 06/27/18 06/27/18 17:45 18:35 18:35 WBC 9.1 RBC 3.73 Hgb 10.6 L Hct 33.7 L MCV 90.3 D MCH 28.4 MCHC 31.5 RDW 15.2 H Plt Count 349 MPV 9.9 Gran % 63.1 Lymph % (Auto) 20.8 L [place] % (Auto) 7.6 H Eos % (Auto) 8.1 H Baso % (Auto) 0.4 Gran # 5.72 Lymph # (Auto) 1.9 [place] # (Auto) 0.7 H Eos # (Auto) 0.7 Baso # (Auto) 0.04 Sodium 139 Potassium 4.5 Chloride 103 Carbon Dioxide 31 Anion Gap 11 BUN 21 Creatinine 0.9 Est GFR ( Amer) > 60 Est GFR (Non-Af Amer) > 60 Random Glucose 97 Calcium 9.3 Total Bilirubin 0.7 AST 44 ALT 37 Alkaline Phosphatase 88 Total Protein 7.4 Albumin 3.7 Globulin 3.7 Albumin/Globulin Ratio 1.0 L Urine Color Yellow Urine Appearance Clear Urine pH 7.0 Ur Specific [place] 1.010 Urine Protein 30 H Urine Glucose (UA) Negative Urine Ketones Negative Urine Blood Large H Urine Nitrate Negative Urine Bilirubin Negative Urine Urobilinogen 0.2 Ur Leukocyte Esterase Trace H Urine RBC Tntc Urine WBC 5 - 10 Ur Epithelial Cells Tntc Urine Bacteria Many Assessment & Plan - Assessment and Plan (Free Text) Plan: Assessment hematuria consider due to urinary bladder mass R/O UTI recurrence of severe C. diff. colitis, clinically improving history of C. diff. 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 Montero
--- NOTE | 2018-06-28 17:11 | CON ---
DATE: 06/28/2018 CONSULTATION CHIEF COMPLAINT: Gross hematuria. HISTORY OF PRESENT ILLNESS: This is an 87-year-old male who was sent from the atrium at [facility]. The patient reports a few days of gross painless hematuria. The patient reports he had no dysuria. No frequency, urgency and no flank pain. The urine was grossly bloody on one void and then had cleared and then recurred again 2 or 3 times and passing some small amount of clots. He reports the urine has now cleared again. The patient has a long smoking history, but quit many years ago. He has a history of a laryngeal cancer. He reports his urinary stream is good without straining. He denies any history of prostate problems or prostate cancer in the past. A consultation was requested regarding the above. 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 He is on radiation and Erbitux therapy. History of hypertension, coronary artery disease, dermatitis with MRSA, cellulitis. C. diff colitis in the past, COPD. MEDICATIONS: His medication currently include aspirin, Lopressor, Pepcid, Remeron, Rocephin, Synthroid, Tylenol, vancomycin. ALLERGIES: NO KNOWN DRUG ALLERGIES. FAMILY HISTORY: Noncontributory for these events. SOCIAL HISTORY: Positive for smoking in the past. Denies any current EtOH use. REVIEW OF SYSTEMS: The patient's positives as per the history of present illness. Denies any current diarrhea or constipation. Does report some mild weakness and lethargy. Otherwise, other systems are negative. PHYSICAL EXAMINATION: GENERAL: The patent is awake and alert. He is answering questions and in no acute distress. VITAL SIGNS: Temperature 97.4, pulse 68, BUN 107/61, respirations are 18. NECK: His neck has status post surgery on the laryngeal cancer. There was no obvious mass noted. CHEST: Exam of the chest reveals normal inspiratory effort. CARDIAC: Showed positive S1 and S2. There is no peripheral edema. ABDOMEN: The abdomen is soft, nontender and nondistended. There is no hepatosplenomegaly or costovertebral angle tenderness. : Noted on exam, phallus is normal. There is a phimotic foreskin, which is difficult to retract. Scrotum is normal. Tests bilaterally are descending. Nontender. No mass. His epididymi are normal. Testes are mildly atrophic. EXTREMITIES: There is no cyanosis or edema. LABORATORY DATA: On laboratory exam, WBC count 9.1. Creatinine 0.9 with a GFR of greater than 60. His urinalysis showed large blood. Too numerous to count rbc, 5-10 wbc, negative for nitrites. Urine culture is currently not done. There are no available blood cultures as well. On radiologic exam, the patient had a CT of the abdomen and pelvis done yesterday. The kidneys were noted to be unremarkable. No hydronephrosis or mass. Bladder was noted to be unremarkable. No lymphadenopathy noted. IMPRESSION AND PLAN: This is an 86-year-old male with gross hematuria. Urologically, the patient is voiding well and the gross hematuria has cleared. He does have a long, although remote, smoking history and history of laryngeal cancer. I have discussed with the patient that his kidneys appear okay on the CT scan and there is no evidence of any stones or suspicious pathology. I would recommend the patient to have a cystoscopy and we can plan on doing that for Sunday if he is medically okay to have this procedure done and receive the anesthesia. I would recommend holding his aspirin for a few days starting now. In case there are any tumors or stone in the bladder, we can then treat the pathology. The patient is amenable to the procedure and he agrees, wants to have this done so he would not need to come back for the procedure. I will schedule it in the OR. Please keep the patient n.p.o after midnight on Sunday night. Thank you for allowing me to participate in the care of this patient. I will follow him with you. Simone Gonzalez MD
[2018-06-29] MEDS: Vancomycin 25 MG/ML PO SCH ×5 (00:29→23:51)
[2018-06-29 06:20] LABS: HEMOGLOBIN 9.9 g/dL (14.0-18.0); MEAN CELL VOLUME 89.5 fl (80.0-105.0); MEAN CORPUSCULAR HEMOGLOBIN 28.9 pg (25.0-35.0); MEAN CORPUSCULAR HGB CONC 32.2 g/dl (31.0-37.0); MEAN PLATELET VOLUME 9.5 fl (7.0-11.0); RBC 3.43 10^6/uL (3.5-6.1); RED CELL DISTRIBUTION WIDTH 15.1 % (11.5-14.5); WHITE BLOOD COUNT 7.7 10^3/uL (4.5-11.0)
[2018-06-29 06:41] LABS: ALB/GLOB RATIO 0.9 (1.1-1.8); ALT/SGPT 28 U/L (7-56); AST/SGOT 31 U/L (17-59); BLOOD UREA NITROGEN 18 mg/dL (7-21); CALCIUM 8.9 mg/dL (8.4-10.5); GFR NON-AFRICAN AMERICAN > 60
[2018-06-29] MEDS: Levothyroxine 50 MCG TAB PO SCH (09:04)
[2018-06-29] MEDS: cefTRIAXone 1 gm 1 GM/100 ML BAG IVPB SCH (09:04)
[2018-06-29] MEDS: ACIDOPH PARACASEI B LACTIS PO SCH (09:04)
--- NOTE | 2018-06-29 12:27 | CP.PCM.PN ---
Subjective - Date & Time of Evaluation Date of Evaluation: 06/29/18 Time of Evaluation: 10:55 - Subjective Subjective: Diarrhea is improving, no more blood from the urine as of today, no fevers, no abdominal pain. Objective - Vital Signs/Intake and Output Vital Signs (last 24 hours): Temp Pulse Resp BP Pulse Ox 97.4 F L 68 18 107/61 99 06/28/18 08:00 06/28/18 08:00 06/28/18 08:00 06/28/18 08:00 06/28/18 08:00 - Medications Medications: Current Medications Acetaminophen (Tylenol 325mg Tab) 650 mg PO Q6H PRN PRN Reason: Pain, moderate (4-7) Last Admin: 06/28/18 01:11 Dose: 650 mg Aspirin (Ecotrin) 81 mg PO DAILY [facility] Last Admin: 06/28/18 10:02 Dose: 81 mg Famotidine (Pepcid) 20 mg PO HS [facility] Ceftriaxone Sodium (Rocephin 1 Gram Ivpb) 1 gm in 100 mls @ 100 mls/hr IVPB DAILY [facility]; Protocol Last Admin: 06/28/18 10:02 Dose: 100 mls/hr Sodium Chloride (Sodium Chloride 0.45%) 1,000 mls @ 40 mls/hr IV .Q24H ONE Stop: 06/28/18 20:51 Last Admin: 06/28/18 10:03 Dose: 40 mls/hr Levothyroxine Sodium (Synthroid) 50 mcg PO DAILY [facility] Last Admin: 06/28/18 10:02 Dose: 50 mcg Metoprolol Tartrate (Lopressor) 25 mg PO [facility] Mirtazapine (Remeron) 15 mg PO HS [facility] Non-Formulary Medication (L.Acidoph,Paracasei, B.Lactis [Probiotic]) 1 tab PO DAILY [facility] Last Admin: 06/28/18 10:01 Dose: Not Given Non-Formulary Medication (Ubidecarenone [Coenzyme Q10]) 1 tab PO DAILY [facility] Last Admin: 06/28/18 12:41 Dose: Not Given Vancomycin HCl (Vancocin 25 Mg/Ml (Oral Use)) 250 mg PO Q6H [facility]; Protocol Last Admin: 06/28/18 12:41 Dose: 250 mg - Labs Labs: 06/27/18 18:35 06/27/18 18:35 - Constitutional Appears: Cachectic, Chronically Ill - Head Exam Head Exam: NORMAL INSPECTION - ENT Exam ENT Exam: Mucous Membranes Moist - Neck Exam Neck Exam: absent: Meningismus - Respiratory Exam Respiratory Exam: Decreased Breath Sounds - Cardiovascular Exam Cardiovascular Exam: +S1, +S2 - GI/Abdominal Exam GI & Abdominal Exam: Soft. absent: Tenderness Assessment and Plan - Assessment and Plan (Free Text) Plan: Assessment hematuria consider due to urinary bladder mass R/O UTI recurrence of severe C. diff. colitis, clinically improving history of C. diff. 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 Montero previously
[2018-06-29] MEDS: UBIDECARENONE PO SCH (13:45)
--- NOTE | 2018-06-29 17:20 | PN ---
DATE: 06/29/2018 SUBJECTIVE: Jw Vila is here with a urinary tract infection and painless hematuria picture. He said his urine is not as red as it was. He is currently on Ecotrin, acidophilus, probiotic, Lopressor, Pepcid, Remeron, Rocephin IV, Synthroid, Tylenol, Coenzyme-Q10, and vancomycin p.o. 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 He is having normal bowel movements. PHYSICAL EXAMINATION: VITAL SIGNS: He has a 57.7 temp, 60 pulse, 123/61 blood pressure 80, respiratory rate, 100% O2 sat on room air. HEENT: Head: Atraumatic, normocephalic. Throat is moist. NECK: Supple. HEART: Regular rate with decreased breath sounds, but clear. ABDOMEN: Soft, nontender. Positive bowel sounds. No guarding, rebound or CVA tenderness. EXTREMITIES: No edema. NEUROLOGIC: bed to chair, think that will help him home, I want Physical Therapy to see him. He is seen by Infectious Disease and Urology to continue with Rocephin and p.o. vanco. He is going to have a cystoscopy with the urologist I believe on Sunday. He does have a big history of cancer, which has kind of finished the treatment in the laryngeal area. PLAN: I am hoping that it will stop bleeding by then. We will continue with aggressive treatment and care. He is comfortable right now. He is eating a little bit. Podiatry was called in to look at his feet. I will continue with the vanco, the Rocephin, IV fluids. We will get him out of bed to chair and physical therapy at the office on Sunday for his painless hematuria and probable bladder thickening could be a cancer. Demetrius Montero DO [facility]
[2018-06-30] MEDS: Vancomycin 25 MG/ML PO SCH ×4 (05:54→23:54)
[2018-06-30 06:10] LABS: ALBUMIN 3.2 g/dL (3.0-4.8); ALT/SGPT 30 U/L (7-56); AST/SGOT 26 U/L (17-59); BLOOD UREA NITROGEN 21 mg/dL (7-21); CALCIUM 8.8 mg/dL (8.4-10.5); GFR NON-AFRICAN AMERICAN > 60
[2018-06-30 06:13] LABS: HEMOGLOBIN 10.2 g/dL (14.0-18.0); MEAN CELL VOLUME 89.5 fl (80.0-105.0); MEAN CORPUSCULAR HEMOGLOBIN 28.8 pg (25.0-35.0); MEAN CORPUSCULAR HGB CONC 32.2 g/dl (31.0-37.0); MEAN PLATELET VOLUME 9.6 fl (7.0-11.0); RBC 3.54 10^6/uL (3.5-6.1); RED CELL DISTRIBUTION WIDTH 14.9 % (11.5-14.5); WHITE BLOOD COUNT 7.3 10^3/uL (4.5-11.0)
[2018-06-30] MEDS: cefTRIAXone 1 gm 1 GM/100 ML BAG IVPB SCH (10:00)
[2018-06-30] MEDS: Levothyroxine 50 MCG TAB PO SCH (10:00)
[2018-06-30] MEDS: UBIDECARENONE PO SCH (10:39)
[2018-06-30] MEDS: ACIDOPH PARACASEI B LACTIS PO SCH (10:39)
--- NOTE | 2018-06-30 11:01 | PN ---
DATE: 06/30/2018 SUBJECTIVE: He is resting comfortably in bed this morning. He actually ate better. Urine is starting to clear from the hematuria which is very good. He had lots of questions for me about tomorrow's cystoscopy with Dr. Gonzalez. I discussed it and explained him. We are looking for what we might have to do, he understands. He is eating okay. The bowels were also okay, on vancomycin because he has a history of C. diff. MEDICATIONS: He is on Ecotrin, probiotic, Lopressor, Pepcid, Remeron, Rocephin IV, Synthroid, Tylenol, Coenzyme Q10 and vancomycin orally. PHYSICAL EXAMINATION VITAL SIGNS: He has a 97.6 temperature, 66 pulse, 146/60 blood pressure, 18 respiratory rate, 99% O2 sat on room air. HEENT: Head is atraumatic, normocephalic. HEART: Regular rate with decreased breath sounds but clear. ABDOMEN: Soft, nontender. Positive bowel sounds. EXTREMITIES: No edema. LABORATORY DATA: Urinary showing is much clear, maybe a little bit dark with some blood in it but much better when he came in and was grossly bleeding, slightly better. He has got 7.3 white count, 10.2 hemoglobin, 31.7 hematocrit with 316,000 platelets. He has a 140 sodium, potassium 3.7, BUN 21, creatinine 0.9, GFR is greater than 60, sugar is 95. Calcium is 8.8, total bili is 0.5, AST is 26, ALT is 30, alk phos 95, total protein 6.4. Urine had many bacteria. Micro showed Klebsiella pneumonia urine. IMPRESSION: He is here for urinary tract infection, hematuria. He is going to go for cystoscopy tomorrow and he is going to do well, sitting out of bed to chair, eat well, and answered many questions. Demetrius Montero DO [facility]
--- NOTE | 2018-06-30 11:27 | CP.PCM.PN ---
Subjective - Date & Time of Evaluation Date of Evaluation: 06/30/18 Time of Evaluation: 11:00 - Subjective Subjective: No more hematuria, no fevers, not in distress, diarrhea is no more. Objective - Vital Signs/Intake and Output Vital Signs (last 24 hours): Temp Pulse Resp BP Pulse Ox 97.7 F 60 18 124/42 L 100 06/29/18 06:00 06/29/18 07:48 06/29/18 06:00 06/29/18 07:48 06/29/18 06:00 Intake and Output: 06/29/18 06/29/18 06:59 18:59 Intake Total 1340 Output Total 725 Balance 615 - Medications Medications: Current Medications Acetaminophen (Tylenol 325mg Tab) 650 mg PO Q6H PRN PRN Reason: Pain, moderate (4-7) Last Admin: 06/28/18 21:58 Dose: 650 mg Aspirin (Ecotrin) 81 mg PO DAILY [facility] Last Admin: 06/29/18 09:03 Dose: 81 mg Famotidine (Pepcid) 20 mg PO HS [facility] Last Admin: 06/28/18 21:59 Dose: 20 mg Ceftriaxone Sodium (Rocephin 1 Gram Ivpb) 1 gm in 100 mls @ 100 mls/hr IVPB DAILY [facility]; Protocol Last Admin: 06/29/18 09:04 Dose: 100 mls/hr Levothyroxine Sodium (Synthroid) 50 mcg PO DAILY [facility] Last Admin: 06/29/18 09:04 Dose: 50 mcg Metoprolol Tartrate (Lopressor) 25 mg PO BRKDIN [facility] Last Admin: 06/29/18 07:48 Dose: 25 mg Mirtazapine (Remeron) 15 mg PO HS [facility] Last Admin: 06/28/18 21:59 Dose: 15 mg Non-Formulary Medication (L.Acidoph,Paracasei, B.Lactis [Probiotic]) 1 tab PO DAILY [facility] Last Admin: 06/29/18 09:04 Dose: Not Given Non-Formulary Medication (Ubidecarenone [Coenzyme Q10]) 1 tab PO DAILY [facility] Last Admin: 06/28/18 12:41 Dose: Not Given Vancomycin HCl (Vancocin 25 Mg/Ml (Oral Use)) 250 mg PO Q6H [facility]; Protocol Last Admin: 06/29/18 05:44 Dose: 250 mg - Labs Labs: 11/10/18 06:00 06/29/18 06:00 - Constitutional Appears: Cachectic, Chronically Ill - Head Exam Head Exam: NORMAL INSPECTION - Neck Exam Neck Exam: absent: Meningismus - Respiratory Exam Respiratory Exam: Decreased Breath Sounds Additional comments: right anterior chest wall port in place - Cardiovascular Exam Cardiovascular Exam: +S1, +S2 - GI/Abdominal Exam GI & Abdominal Exam: Soft. 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 faecalis and Klebisella recurrence of severe C. diff. colitis, clinically improving history of C. diff. 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 Montero
[2018-06-30] MEDS: Vancomycin 750mg 750 MG/250 ML BAG IVPB SCH ×2 (12:25→21:58)
[2018-07-01] MEDS: Vancomycin 25 MG/ML PO SCH ×4 (06:41→23:09)
[2018-07-01 08:03] LABS: HEMOGLOBIN 10.3 g/dL (14.0-18.0); MEAN CELL VOLUME 90.3 fl (80.0-105.0); MEAN CORPUSCULAR HEMOGLOBIN 28.6 pg (25.0-35.0); MEAN CORPUSCULAR HGB CONC 31.7 g/dl (31.0-37.0); MEAN PLATELET VOLUME 10.2 fl (7.0-11.0); RBC 3.6 10^6/uL (3.5-6.1); WHITE BLOOD COUNT 13.9 10^3/uL (4.5-11.0)
[2018-07-01 08:32] LABS: ALB/GLOB RATIO 0.9 (1.1-1.8); ALBUMIN 3.2 g/dL (3.0-4.8); ALT/SGPT 28 U/L (7-56); AST/SGOT 38 U/L (17-59); BLOOD UREA NITROGEN 24 mg/dL (7-21); CALCIUM 8.9 mg/dL (8.4-10.5); GFR NON-AFRICAN AMERICAN > 60
[2018-07-01] MEDS: ACIDOPH PARACASEI B LACTIS PO SCH (10:24)
[2018-07-01] MEDS: UBIDECARENONE PO SCH (10:25)
[2018-07-01] MEDS: cefTRIAXone 1 gm 1 GM/100 ML BAG IVPB SCH (10:25)
[2018-07-01] MEDS: Vancomycin 750mg 750 MG/250 ML BAG IVPB SCH ×2 (10:25→21:32)
[2018-07-01] MEDS: Levothyroxine 50 MCG TAB PO SCH (10:25)
--- NOTE | 2018-07-01 13:27 | DS ---
HISTORY OF PRESENT ILLNESS: He is going to go for a cystoscopy today, and then if everything is okay, we will get him back to the atrium at the [facility]. MEDICATIONS: He is currently on Ecotrin, probiotics, Lopressor, Pepcid, Remeron, Rocephin IV, Synthroid, Tylenol, coenzyme, vancomycin orally and vancomycin IV. I will discuss with Infectious Disease what p.o. antibiotics I can put him on or if he does not need anything, we will just keep him on the vancomycin p.o. for his C. 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 PHYSICAL EXAMINATION: VITAL SIGNS: He has a 97.7 temperature, 74 pulse, 143/65 blood pressure, 19 respiratory rate and 98% O2 sat on nasal cannula. HEENT: Head is atraumatic, normocephalic. HEART: Regular rate. LUNGS: Decreased breath sounds but clear. ABDOMEN: Soft, nontender. Positive bowel sounds. No guarding, no rebound, no CVA tenderness. EXTREMITIES: Have no edema. LABORATORY DATA: He has a 13.9 white count, 10.3 hemoglobin, 32.5 hematocrit with 308,000 platelets. Sodium 140, potassium is 3.7, BUN 21, creatinine 0.9, GFR is greater than 60, sugar is 95, calcium is 8.8, total bili is 0.5, AST is 26, ALT is 30, alk phos is 75, total protein is 6.4, albumin is 3.1. He will have a cysto today, hopefully it will go well. Hope, I can discharge him back to the atrium at [facility]. They will continue with the vancomycin as per Infectious Disease orally, and if they want him on any other medications, so let me know and if he painless hematuria and urinary tract infection. Demetrius Montero DO [facility]
[2018-07-01] MEDS ORDERED: cefTRIAXone (Rocephin) 1 gm Inj ONE (15:27)
[2018-07-01] MEDS ORDERED: Etomidate 20 mg/10ml Inj IV ONE (15:49)
--- NOTE | 2018-07-01 16:30 | CP.PCM.PN ---
Subjective - Date & Time of Evaluation Date of Evaluation: 07/01/18 Time of Evaluation: 07:30 - Subjective Subjective: Afebrile, no hematuria, no more diarrhea. For cystoscopy. Objective - Vital Signs/Intake and Output Vital Signs (last 24 hours): Temp Pulse Resp BP Pulse Ox 97.6 F 66 18 152/53 H 99 06/30/18 06:00 06/30/18 07:53 06/30/18 06:00 06/30/18 07:53 06/30/18 06:00 Intake and Output: 06/30/18 06/30/18 06:59 18:59 Intake Total 250 Output Total 450 Balance -200 - Medications Medications: Current Medications Acetaminophen (Tylenol 325mg Tab) 650 mg PO Q6H PRN PRN Reason: Pain, moderate (4-7) Last Admin: 06/29/18 21:50 Dose: 650 mg Aspirin (Ecotrin) 81 mg PO DAILY [facility] Last Admin: 06/30/18 10:00 Dose: 81 mg Famotidine (Pepcid) 20 mg PO HS [facility] Last Admin: 06/29/18 21:42 Dose: 20 mg Ceftriaxone Sodium (Rocephin 1 Gram Ivpb) 1 gm in 100 mls @ 100 mls/hr IVPB DAILY [facility]; Protocol Last Admin: 06/30/18 10:00 Dose: 100 mls/hr Vancomycin HCl (Vancomycin 750 Mg In Ns) 750 mg in 250 mls @ 167 mls/hr IVPB Q12H [facility]; Protocol Levothyroxine Sodium (Synthroid) 50 mcg PO DAILY [facility] Last Admin: 06/30/18 10:00 Dose: 50 mcg Metoprolol Tartrate (Lopressor) 25 mg PO BRKDIN [facility] Last Admin: 06/30/18 07:53 Dose: 25 mg Mirtazapine (Remeron) 15 mg PO HS [facility] Last Admin: 06/29/18 21:42 Dose: 15 mg Non-Formulary Medication (L.Acidoph,Paracasei, B.Lactis [Probiotic]) 1 tab PO DAILY [facility] Last Admin: 06/30/18 10:39 Dose: Not Given Non-Formulary Medication (Ubidecarenone [Coenzyme Q10]) 1 tab PO DAILY [facility] Last Admin: 06/30/18 10:39 Dose: Not Given Vancomycin HCl (Vancocin 25 Mg/Ml (Oral Use)) 250 mg PO Q6H [facility]; Protocol Last Admin: 06/30/18 05:54 Dose: 250 mg - Labs Labs: 06/30/18 05:40 06/30/18 05:40 - Constitutional Appears: Cachectic, Chronically Ill - Head Exam Head Exam: NORMAL INSPECTION - Neck Exam Neck Exam: absent: Meningismus - Respiratory Exam Respiratory Exam: Decreased Breath Sounds - Cardiovascular Exam Cardiovascular Exam: +S1, +S2 - GI/Abdominal Exam GI & Abdominal Exam: Soft. 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 faecalis and Klebisella recurrence of severe C. diff. colitis, clinically improving history of C. diff. 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 Montero
[2018-07-01] MEDS ORDERED: Morphine 2 mg/ml ISec IVP PRN (16:35)
[2018-07-01] MEDS: HYDROmorphone 0.5 mg/0.5 ml ISec IVP PRN ×3 (16:35→17:20)
[2018-07-01] MEDS ORDERED: Lactated Ringer's 1,000 ML IV SCH (16:45)
[2018-07-01] MEDS ORDERED: HYDROmorphone 0.5 mg/0.5 ml ISec ONE ×2 (17:09→17:26)
--- NOTE | 2018-07-01 18:59 | OP ---
PROCEDURE DATE: 07/01/2018 PREOPERATIVE DIAGNOSIS: Gross hematuria. POSTOPERATIVE DIAGNOSES: Gross hematuria, bladder tumor. PROCEDURES: Cystoscopy, transurethral resection of bladder tumor. ATTENDING SURGEON: Simone Gonzalez MD. ANESTHESIA: General. SPECIMEN: Bladder tumor chips sent to pathology. DRAINS: A 22-Guyanese Luna catheter. COMPLICATIONS: There were none. OPERATIVE FINDINGS: After informed consent was obtained, the patient was taken to the operating room, placed on the operating table. Anesthesia was administered. The patient was then placed in dorsal lithotomy position and prepped and draped in usual sterile fashion. First, a 22-Guyanese cystoscope was placed in the patient's urethra and advanced proximally under direct vision until the bladder was entered. A full survey inspection of bladder was then performed which revealed a 3 x 3 cm area of papillary tumor located on the right lateral wall. Tumor was encroaching down the wall near the right ureteral orifice but was not involving the right ureteral orifice. Tumor was papillary but low lying. There was confluence of tumors, but there were no other satellite tumors side of this area, again which measured approximately 3 x 3 cm. There was grade 1 trabeculation. Both ureteral orifices were visualized and appeared within normal limits. At this point, the 22-Guyanese scope was withdrawn and a 26-Guyanese resectoscope with a visualizing obturator was passed under direct vision into the bladder and using a resecting loop, the tumor was then resected down into the muscular layer and removed in its entirety. After the tumor had been completely resected. The loop was changed to a rollerball electrode and the base of the tumor was then resected, the base of the tumor was then fulgurated along with an area of surrounding normal mucosa. Any bleeding points encountered during the resection were controlled using electrocautery. After all the visible tumor had been resected and fulgurated, the procedure was completed. The Urovac device was used to evacuate the tumor chips from the bladder which were then sent to pathology as specimen. A final inspection was then made. There was no remaining untreated tumor. There was complete hemostasis from the tumor bed and at this point, the procedure was complete. The bladder was drained and the cystoscope was removed. A 22-Guyanese 3-way Luna catheter was then passed and placed to continuous bladder irrigation. The patient tolerated the procedure well. He was returned to supine position and taken to the recovery room awake in stable condition. Simone Gonzalez MD
[2018-07-02] MEDS: Vancomycin 25 MG/ML PO SCH ×4 (05:05→23:37)
--- NOTE | 2018-07-02 08:37 | PN ---
DATE: 07/02/2018 SUBJECTIVE: I saw Jw resting comfortably in bed. He is feeling well. He has a CBI and the Luna catheter infusing after status post bladder resection for tumor with Dr. Gonzalez. He will need to be on the CBI bladder irrigation for 48 hours. He is comfortable. He is hungry. He kind understands the plan before he goes back to the atrium at [facility]. PHYSICAL EXAMINATION: VITAL SIGNS: He has 98.4 temp, 98 pulse, 113/62 blood pressure, 20 respiratory rate, 96% O2 sat on room air. HEENT: His head is atraumatic, normocephalic. HEART: Regular rate. LUNGS: Clear to auscultation. ABDOMEN: Soft. EXTREMITIES: No edema. He has got CBI running. MEDICATIONS: He is currently on aspirin, probiotic, Lopressor, Pepcid, Remeron, Rocephin IV, Synthroid, Tylenol, Coenzyme Q10, vancomycin p.o. and vancomycin IV. LABORATORY DATA: He has a 139 sodium, potassium 3.9, BUN 24, creatinine 0.8, on IV fluids. GFR is greater than 60, sugar is 76, calcium is 8.9, total bili is 0.6. AST is 38, ALT is 28, alk phos 75, total protein is 6.7, albumin is 3.2. His white count went up to 13.9, he is on IV antibiotics, hope further will come down. Hemoglobin 10.3, hematocrit 32.5, platelets of 308. ASSESSMENT AND PLAN: When he came in, his urine had many bacteria with Klebsiella pneumoniae in the urine. He is being seen by infectious Disease and Urology. We will continue with CBI, IV antibiotics until I am allowed to send him back to the atrium at [facility]. Demetrius Montero DO
[2018-07-02] MEDS: Vancomycin 750mg 750 MG/250 ML BAG IVPB SCH ×2 (10:01→21:38)
[2018-07-02] MEDS: UBIDECARENONE PO SCH (10:02)
[2018-07-02] MEDS: ACIDOPH PARACASEI B LACTIS PO SCH (10:03)
[2018-07-02] MEDS: Levothyroxine 50 MCG TAB PO SCH (10:04)
[2018-07-02] MEDS: cefTRIAXone 1 gm 1 GM/100 ML BAG IVPB SCH (12:22)
--- NOTE | 2018-07-02 17:07 | CP.PCM.PN ---
Subjective - Date & Time of Evaluation Date of Evaluation: 07/02/18 Time of Evaluation: 08:50 - Subjective Subjective: Had cystoscopy yesterday and biopsy of bladder mass was done. No fevers. Objective - Vital Signs/Intake and Output Vital Signs (last 24 hours): Temp Pulse Resp BP Pulse Ox 98.2 F 70 18 128/54 L 99 07/01/18 09:50 07/01/18 09:50 07/01/18 09:50 07/01/18 09:50 07/01/18 09:50 Intake and Output: 07/01/18 07/01/18 06:59 18:59 Intake Total 150 0 Output Total 725 Balance -575 0 - Medications Medications: Current Medications Acetaminophen (Tylenol 325mg Tab) 650 mg PO Q6H PRN PRN Reason: Pain, moderate (4-7) Last Admin: 06/30/18 21:57 Dose: 650 mg Aspirin (Ecotrin) 81 mg PO DAILY [facility] Last Admin: 07/01/18 10:24 Dose: Not Given Famotidine (Pepcid) 20 mg PO HS [facility] Last Admin: 06/30/18 21:57 Dose: 20 mg Ceftriaxone Sodium (Rocephin 1 Gram Ivpb) 1 gm in 100 mls @ 100 mls/hr IVPB DAILY [facility]; Protocol Last Admin: 07/01/18 10:25 Dose: Not Given Vancomycin HCl (Vancomycin 750 Mg In Ns) 750 mg in 250 mls @ 167 mls/hr IVPB Q12 [facility]; Protocol Last Admin: 07/01/18 10:25 Dose: Not Given Levothyroxine Sodium (Synthroid) 50 mcg PO DAILY [facility] Last Admin: 07/01/18 10:25 Dose: Not Given Metoprolol Tartrate (Lopressor) 25 mg PO BRKDIN [facility] Last Admin: 07/01/18 08:18 Dose: 25 mg Mirtazapine (Remeron) 15 mg PO HS [facility] Last Admin: 06/30/18 21:57 Dose: 15 mg Non-Formulary Medication (L.Acidoph,Paracasei, B.Lactis [Probiotic]) 1 tab PO DAILY [facility] Last Admin: 07/01/18 10:24 Dose: Not Given Non-Formulary Medication (Ubidecarenone [Coenzyme Q10]) 1 tab PO DAILY [facility] Last Admin: 07/01/18 10:25 Dose: Not Given Vancomycin HCl (Vancocin 25 Mg/Ml (Oral Use)) 250 mg PO Q6H [facility]; Protocol Last Admin: 07/01/18 12:36 Dose: Not Given - Labs Labs: 07/01/18 05:00 07/01/18 07:50 - Constitutional Appears: Cachectic, Chronically Ill - Head Exam Head Exam: NORMAL INSPECTION - Neck Exam Neck Exam: absent: Meningismus - Respiratory Exam Respiratory Exam: Decreased Breath Sounds Additional comments: right anterior chest wall port in place Assessment and Plan - Assessment and Plan (Free Text) Plan: Assessment hematuria consider due to urinary bladder mass on top of UTI with E. faecalis and Klebisella recurrence of severe C. diff. colitis, clinically improving history of C. diff. 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 Montero
--- NOTE | 2018-07-02 19:47 | PN ---
DATE: 07/02/2018 SUBJECTIVE: The patient is postop cystoscopy resection of bladder tumor. PHYSICAL EXAMINATION: He has been afebrile. Temperature of 98.4, pulse 98, BP 113/62, respirations 20. Abdomen is benign. Luna catheter in place draining clear colored urine on slow CBI. IMPRESSION: The patient is stable postop urologically. PLAN: The plan for now is to continue the slow CBI. Discontinue bladder irrigation tomorrow given depth of the resection. I would continue Luna catheter for 1 week. If the patient is stable medically, he can return to the nursing facility with Luna to a leg bag and catheter can be removed on Sunday. We will reassess tomorrow. Simone Gonzalez MD
[2018-07-03] MEDS: Vancomycin 25 MG/ML PO SCH ×2 (05:22→12:00)
[2018-07-03 06:30] LABS: MEAN CELL VOLUME 88.7 fl (80.0-105.0); MEAN CORPUSCULAR HGB CONC 32.7 g/dl (31.0-37.0); MEAN PLATELET VOLUME 10.2 fl (7.0-11.0); RBC 3.1 10^6/uL (3.5-6.1); RED CELL DISTRIBUTION WIDTH 15.1 % (11.5-14.5); WHITE BLOOD COUNT 14.7 10^3/uL (4.5-11.0)
[2018-07-03 06:53] LABS: ALB/GLOB RATIO 0.8 (1.1-1.8); ALBUMIN 2.6 g/dL (3.0-4.8); ALT/SGPT 30 U/L (7-56); AST/SGOT 38 U/L (17-59); BLOOD UREA NITROGEN 17 mg/dL (7-21); CALCIUM 8.4 mg/dL (8.4-10.5); GFR NON-AFRICAN AMERICAN > 60
[2018-07-03 08:46] VITALS: O2SAT 98
--- NOTE | 2018-07-03 08:57 | DS ---
HISTORY OF PRESENT ILLNESS: Today, he had a cystoscopy with Dr. Gonzalez. He had a bladder tumor. He was resected. He has been on CBI. Urine is now clear which was better than hematuria which he came in on. He is eating a little bit better. PHYSICAL EXAMINATION: VITAL SIGNS: He has a 98.1 temperature, 86 pulse, 137/60 blood pressure, 18 respiratory rate, 96% O2 sat on room air. HEENT: His head is atraumatic, normocephalic. Throat is moist. NECK: Supple. HEART: Regular rate. LUNGS: Clear to auscultation. ABDOMEN: Soft, scaphoid, nontender. Positive bowel sounds. EXTREMITIES: No edema. He is very thin and frail. He has a CBI going. He also has Ecotrin, probiotic, Lopressor, Pepcid, Remeron, Rocephin IV, Synthroid, Tylenol, Coenzyme Q10, vancomycin IV and vancomycin p.o. LABORATORY DATA: His white count is 14.7, it has gone up a little bit, hemoglobin 9, hematocrit 27.5, platelets are 254,000. He has a 137 sodium, potassium 3.4, we gave him a K-rider. BUN 17, creatinine one, GFR is greater than 60, sugar 97, calcium is 8.4, total bili is 0.8, AST is 38, ALT is 30, alk phos 87, total protein is 5.8. He did have Klebsiella pneumonia in the urine. He is being seen by Urology and Infectious Disease. He is currently on IV antibiotics. There was a note from the urologist that he might be able to be discharged today back to the [facility] at [facility]. I put an order for physical therapy, out of bed to chair, see if he could walk well. He might need to go to before he actually gets back to the [facility], waiting for the recommendation from physical therapy. Also, he might need to be on IV antibiotics a little longer. He could do that at He cannot do that at the [facility]. We will discuss with marriage and family social worker, case management and hopefully to discharge him later today. Demetrius Montero DO [facility] # [id number] MTDD
[2018-07-03] MEDS: Levothyroxine 50 MCG TAB PO SCH (09:28)
[2018-07-03] MEDS: ACIDOPH PARACASEI B LACTIS PO SCH (09:28)
[2018-07-03] MEDS: UBIDECARENONE PO SCH (09:29)
[2018-07-03] MEDS: Vancomycin 750mg 750 MG/250 ML BAG IVPB SCH (11:59)
--- NOTE | 2018-07-03 14:10 | CP.PCM.CON ---
History of Present Illness - History of Present Illness History of Present Illness: Hematology/Oncology Consultation (Dr. Smith's Service) CC: Abdominal pain/Anemia HPI: Mr. 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 He reports that he has had blood in his stool in the past but never had blood in his urine before. He reports that this was multiple episodes and it was painless each time. Of note, he was recently hospitalized for c.diff infection. He denies any complaints at this time and 12 point ROS outside of what has been mentioned already was reviewed and is otherwise unremarkable. During this admission, patient had partial bladder resection with Dr. Gonzalez after having found a soft tissue mass within the bladder. Biopsy results are still p ending at this time. PMH: As stated above PSH: Right Knee Arthroplasty, RCW Port, PEG (in and out), multiple shoulder and other orthopedic surgeries Family History: Non-Contributory Social History: Previous use of tobacco; Denies any alcohol or illicit drug use Allergies: NKDA Home Medications: As per MAR Review of Systems - Review of Systems Review of Systems: As stated in HPI, otherwise negative Past Patient History - Infectious Disease Hx of Infectious Diseases: None - Past Social History Smoking Status: Former Smoker - CARDIAC Hx Cardiac Disorders: Yes (cabg 2014) Hx Hypercholesterolemia: Yes Hx Hypertension: Yes - PULMONARY Hx Respiratory Disorders: Yes Hx Chronic Obstructive Pulmonary Disease (COPD): Yes Hx Pneumonia: Yes - NEUROLOGICAL Hx Neurological Disorder: No - HEENT Hx HEENT Problems: Yes Hx Cataracts: Yes (b/l sx) Hx Difficulty Chewing: Yes Other/Comment: THROAT CA, had peg tube was removed 5-6 weeks ago - RENAL Hx Chronic Kidney Disease: No - ENDOCRINE/METABOLIC Hx Endocrine Disorders: Yes Hx Hypothyroidism: Yes - HEMATOLOGICAL/ONCOLOGICAL Hx Blood Transfusions: No Hx Blood Transfusion Reaction: No - INTEGUMENTARY Hx Dermatological Problems: Yes Other/Comment: buttocks reddened no openings, b/l feet thick toenails, left foot bottom of foot dry flakey skin and redness, tip of great toe red with small 0.5cm round deep red sore, bunyon reddened, hx of radiation dermatitis, prior unspecified skin tumors - MUSCULOSKELETAL/RHEUMATOLOGICAL Hx Falls: Yes - GASTROINTESTINAL Hx Gastrointestinal Disorders: Yes (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) HX Swallowing Problems: Yes Other/Comment: + c dif, weight loss, poor appetite - GENITOURINARY/GYNECOLOGICAL Hx Genitourinary Disorders: No - PSYCHIATRIC Hx Psychophysiologic Disorder: No - SURGICAL HISTORY Hx Surgeries: Yes - ANESTHESIA Hx Anesthesia Reactions: No Hx Malignant Hyperthermia: No Meds Home Medications: Home Medication List Medication Instructions Recorded Confirmed Type Acetaminophen [Tylenol 325mg tab] 650 mg PO Q6H PRN tab 07/03/18 Rx Aspirin [Adult Low Dose Aspirin EC] 81 mg PO DAILY #30 tablet.dr 07/03/18 Rx Aspirin [Ecotrin] 81 mg PO DAILY tabec 07/03/18 Rx Cephalexin [Keflex] 500 mg PO TID #9 capsule 07/03/18 Rx Famotidine [Pepcid] 20 mg PO DAILY #30 tab 07/03/18 Rx Famotidine [Pepcid] 20 mg PO HS tab 07/03/18 Rx L.Acidoph,Paracasei, B.Lactis 1 tab PO DAILY 07/03/18 Rx [Probiotic] Levothyroxine [Synthroid] 50 mcg PO DAILY tab 07/03/18 Rx Levothyroxine [Synthroid] 50 mcg PO DAILY #30 tab 07/03/18 Rx Metoprolol Tartrate [Lopressor] 25 mg PO BID #60 tab 07/03/18 Rx Metoprolol Tartrate [Lopressor] 25 mg PO BRKDIN tab 07/03/18 Rx Mirtazapine [Remeron] 15 mg PO HS tab 07/03/18 Rx Mirtazapine [Remeron] 15 mg PO HS #30 tablet 07/03/18 Rx Nitrofurantoin Macrocrystal 100 mg PO BID #6 capsule 07/03/18 Rx [Nitrofurantoin] Ubidecarenone [Coenzyme Q10] 1 tab PO DAILY 07/03/18 Rx Ubidecarenone [Coenzyme Q10] 10 mg PO DAILY #30 capsule 07/03/18 Rx Vancomycin [Vancocin (ORAL OR 125 mg PO Q6 #56 soln 07/03/18 Rx RECTAL USE)] Vancomycin [Vancocin 25 mg/ml 250 mg PO Q6H #0 ml 07/03/18 Rx (Oral Use)] Allergies/Adverse Reactions: Allergies Allergy/AdvReac Type Severity Reaction Status Date / Time No Known Allergies Allergy Verified 06/27/18 17:27 - Medications Medications: Current Medications Acetaminophen (Tylenol 325mg Tab) 650 mg PO Q6H PRN PRN Reason: Pain, moderate (4-7) Last Admin: 07/02/18 03:04 Dose: 650 mg Aspirin (Ecotrin) 81 mg PO DAILY [facility] Last Admin: 07/01/18 10:24 Dose: Not Given Famotidine (Pepcid) 20 mg PO HS [facility] Last Admin: 07/02/18 21:38 Dose: 20 mg Ceftriaxone Sodium (Rocephin 1 Gram Ivpb) 1 gm in 100 mls @ 100 mls/hr IVPB DAILY [facility]; Protocol Last Admin: 07/02/18 12:22 Dose: 100 mls/hr Vancomycin HCl (Vancomycin 750 Mg In Ns) 750 mg in 250 mls @ 167 mls/hr IVPB Q12 [facility]; Protocol Last Admin: 07/03/18 11:59 Dose: 167 mls/hr Levothyroxine Sodium (Synthroid) 50 mcg PO DAILY [facility] Last Admin: 07/03/18 09:28 Dose: 50 mcg Metoprolol Tartrate (Lopressor) 25 mg PO BRKDIN [facility] Last Admin: 07/03/18 08:06 Dose: 25 mg Mirtazapine (Remeron) 15 mg PO HS [facility] Last Admin: 07/02/18 21:38 Dose: 15 mg Non-Formulary Medication (L.Acidoph,Paracasei, B.Lactis [Probiotic]) 1 tab PO DAILY [facility] Last Admin: 07/03/18 09:28 Dose: Not Given Non-Formulary Medication (Ubidecarenone [Coenzyme Q10]) 1 tab PO DAILY [facility] Last Admin: 07/03/18 09:29 Dose: Not Given Vancomycin HCl (Vancocin 25 Mg/Ml (Oral Use)) 250 mg PO Q6H [facility]; Protocol Last Admin: 07/03/18 12:00 Dose: 250 mg Physical Exam - Constitutional Appears: Non-toxic, No Acute Distress - Head Exam Head Exam: ATRAUMATIC, NORMOCEPHALIC - Eye Exam Eye Exam: EOMI - ENT Exam ENT Exam: Mucous Membranes Moist - Neck Exam Neck exam: Positive for: Full Rom - Respiratory Exam Respiratory Exam: Clear to Auscultation Bilateral, NORMAL BREATHING PATTERN - Cardiovascular Exam Cardiovascular Exam: REGULAR RHYTHM - GI/Abdominal Exam GI & Abdominal Exam: Normal Bowel Sounds, Soft. absent: Tenderness - Extremities Exam Extremities exam: Negative for: calf tenderness - Neurological Exam Neurological exam: Alert, Oriented x3 - Psychiatric Exam Psychiatric exam: Normal Affect, Normal Mood - Skin Skin Exam: Dry, Warm Results - Vital Signs Recent Vital Signs: Last Vital Signs Temp 98.8 F 07/03/18 08:44 Pulse 98 H 07/03/18 08:44 Resp 20 07/03/18 08:44 BP 155/76 H 07/03/18 08:44 Pulse Ox 98 07/03/18 08:44 - Labs Result Diagrams: 07/03/18 06:00 07/03/18 06:00 Labs: Laboratory Results - last 24 hr 07/02/18 07/03/18 07/03/18 21:53 06:00 06:00 WBC 14.7 H RBC 3.10 L Hgb 9.0 L Hct 27.5 L MCV 88.7 MCH 29.0 MCHC 32.7 RDW 15.1 H Plt Count 254 MPV 10.2 Sodium 137 Potassium 3.4 L Chloride 105 Carbon Dioxide 27 Anion Gap 9 L BUN 17 Creatinine 1.0 Est GFR ( Amer) > 60 Est GFR (Non-Af Amer) > 60 POC Glucose (mg/dL) 111 H Random Glucose 97 Calcium 8.4 Total Bilirubin 0.8 AST 38 ALT 30 Alkaline Phosphatase 87 Total Protein 5.8 Albumin 2.6 L Globulin 3.1 Albumin/Globulin Ratio 0.8 L Assessment & Plan - Assessment and Plan (Free Text) Assessment: 87 year old male with a past medical history significant for 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 Plan: -Follow up bladder mass biopsy results -Follow up in Dr. Smith's office as an outpatient in three weeks from [facility] for routine follow up -Continue management as per Primary and Urology team's -Further recommendations as per Dr. Smith Patient seen and case discussed with attending, Dr. Smith. Jeremías Cline PGY2 - Date & Time Date: 07/03/18 Time: 14:10
[2018-07-03] MEDS: cefTRIAXone 1 gm 1 GM/100 ML BAG IVPB SCH (15:10)
[2018-07-03] MEDS ORDERED: Potassium Chloride 20 mEq/15 ml LIQ UD PO STA (16:03)
--- NOTE | 2018-07-03 17:02 | CP.PCM.PN ---
Subjective - Date & Time of Evaluation Date of Evaluation: 07/03/18 Time of Evaluation: 08:45 - Subjective Subjective: No fevers, no nausea, not in distress. Objective - Vital Signs/Intake and Output Vital Signs (last 24 hours): Temp Pulse Resp BP Pulse Ox 98.4 F 98 H 20 118/62 96 07/02/18 06:00 07/02/18 10:03 07/02/18 06:00 07/02/18 10:03 07/02/18 06:00 Intake and Output: 07/02/18 07/02/18 06:59 18:59 Intake Total 250 Output Total 1375 Balance -1125 - Medications Medications: Current Medications Acetaminophen (Tylenol 325mg Tab) 650 mg PO Q6H PRN PRN Reason: Pain, moderate (4-7) Last Admin: 07/02/18 03:04 Dose: 650 mg Aspirin (Ecotrin) 81 mg PO DAILY [facility] Last Admin: 07/01/18 10:24 Dose: Not Given Famotidine (Pepcid) 20 mg PO HS [facility] Last Admin: 07/02/18 03:04 Dose: 20 mg Ceftriaxone Sodium (Rocephin 1 Gram Ivpb) 1 gm in 100 mls @ 100 mls/hr IVPB DAILY [facility]; Protocol Last Admin: 07/02/18 12:22 Dose: 100 mls/hr Vancomycin HCl (Vancomycin 750 Mg In Ns) 750 mg in 250 mls @ 167 mls/hr IVPB Q12 [facility]; Protocol Last Admin: 07/02/18 10:01 Dose: 167 mls/hr Levothyroxine Sodium (Synthroid) 50 mcg PO DAILY [facility] Last Admin: 07/02/18 10:04 Dose: 50 mcg Metoprolol Tartrate (Lopressor) 25 mg PO BRKDIN [facility] Last Admin: 07/02/18 10:03 Dose: 25 mg Mirtazapine (Remeron) 15 mg PO HS [facility] Last Admin: 07/01/18 21:40 Dose: Not Given Non-Formulary Medication (L.Acidoph,Paracasei, B.Lactis [Probiotic]) 1 tab PO DAILY [facility] Last Admin: 07/02/18 10:03 Dose: Not Given Non-Formulary Medication (Ubidecarenone [Coenzyme Q10]) 1 tab PO DAILY [facility] Last Admin: 07/02/18 10:02 Dose: Not Given Vancomycin HCl (Vancocin 25 Mg/Ml (Oral Use)) 250 mg PO Q6H [facility]; Protocol Last Admin: 07/02/18 12:23 Dose: 250 mg - Labs Labs: 07/01/18 05:00 07/01/18 07:50 - Constitutional Appears: Cachectic, Chronically Ill - Head Exam Head Exam: NORMAL INSPECTION - Respiratory Exam Respiratory Exam: Decreased Breath Sounds - Cardiovascular Exam Cardiovascular Exam: +S1, +S2 - GI/Abdominal Exam GI & Abdominal Exam: Soft. 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 faecalis and Klebisella recurrence of severe C. diff. colitis, clinically improving history of C. diff. colitis acute infection history of sepsis due to right lower lobe HCAP from possible gram positive cocci and/or gram negative bacilli and/or atypical organisms history of oral candidiasis history of superinfection of left side of neck with bacteria (MRSA), R/O HSV, clinically improved and S/P treatment history of radiation dermatitis on left side of neck with superimposed cellulitis, growing MRSA throat cancer S/P port placement on chemotherapy and radiation therapy S/P PEG placement Plan reviewed CT A/P - underwent cystoscopy and bladder mass underwent biopsy on Rocephin day 6 and Vancomycin IV - can switch to PO Keflex and Nitrofurantoin for another 2- days continue PO Vancomycin - should continue PO Vancomycin 125 mg PO q6 x 14 days, then PO Vancomycin 125 mg PO BID x 1 week, then Vancomycin 125 mg PO daily x 1 week and then Vancomycin 125 mg PO every other day x 2-8 weeks overall prognosis is poor
[2018-07-03 17:08] VITALS: BP 142/66; PULSE 90; RESP 19; TEMP 98
== END 2018-07-03 19:49 | DRG 669 ==
LOC: ED 17:14 → ERH 20:49 → 3RSO 06-28 00:12
PROVIDERS: ADMIT Family Medicine; ATTEND Family Medicine
PROC: 0TBB8ZZ Excision of Bladder, Via Natural or Artificial Opening Endoscopic (ICD-10-PCS; principal; 2018-07-01 12:00)
DX: C67.2 Malignant neoplasm of lateral wall of bladder (principal); N39.0 Urinary tract infection, site not specified; Z68.1 Body mass index [BMI] 19.9 or less, adult; A04.72 Enterocolitis due to Clostridium difficile, not specified as recurrent; R64 Cachexia; I25.10 Atherosclerotic heart disease of native coronary artery without angina pectoris; I10 Essential (primary) hypertension; R63.0 Anorexia; R31.0 Gross hematuria; J44.9 Chronic obstructive pulmonary disease, unspecified; B96.1 Klebsiella pneumoniae [K. pneumoniae] as the cause of diseases classified elsewhere; E03.9 Hypothyroidism, unspecified; Z96.612 Presence of left artificial shoulder joint; Z96.652 Presence of left artificial knee joint; Z85.21 Personal history of malignant neoplasm of larynx; Z92.21 Personal history of antineoplastic chemotherapy; Z92.3 Personal history of irradiation; Z95.1 Presence of aortocoronary bypass graft; Z87.891 Personal history of nicotine dependence

== ENCOUNTER 2018-12-26 06:29 | Day surgery (SDC) | payer MEDICARE ==
[2018-12-04 12:19] VITALS: BMI 18.7
[2018-12-26] MEDS ORDERED: cefTRIAXone (Rocephin) 1 gm Inj ONE (10:11)
[2018-12-26] MEDS ORDERED: Propofol 10 mg/ml Inj (20 ML) ONE (10:18)
[2018-12-26] MEDS ORDERED: HYDROmorphone 0.5 mg/0.5 ml ISec IVP PRN (11:15)
[2018-12-26] MEDS ORDERED: Lactated Ringer's 1,000 ML IV SCH (11:15)
[2018-12-26 11:32] VITALS: RESP 18
[2018-12-26 13:30] VITALS: BP 168/77; PULSE 82; TEMP 97.6; O2SAT 99
--- NOTE | 2018-12-26 22:51 | OP ---
PROCEDURE DATE: 12/26/2018 PREOPERATIVE DIAGNOSIS: Bladder cancer history. POSTOPERATIVE DIAGNOSES: Bladder cancer history plus bladder tumor. PROCEDURES: A cystoscopy, bladder biopsies and fulguration of bladder mass. ATTENDING SURGEON: Simone Gonzalez MD TYPE OF ANESTHESIA: General. SPECIMENS: Multiple biopsies of the bladder mass were sent to pathology. DRAINS: A 20-[place] two-way Luna catheter. COMPLICATIONS: There were none. OPERATIVE FINDINGS: After informed consent was obtained, the patient was taken to the operating room, placed on the operating room table. Anesthesia was administered. The patient was then prepped and draped in usual sterile fashion, placed in dorsal lithotomy position. When adequacy of anesthesia was obtained, a 22-[place] cystoscope was placed in the patient's urethra and advanced proximally under direct vision until the bladder was entered. A full survey inspection of bladder was then performed which revealed a large ragged mass on the posterior wall of the bladder. Both ureteral orifices were visualized and appeared within normal limits. Bladder had grade II to III trabeculation with multiple cellules noted. The mass was suspicious for tumor or more likely possible catheter reaction as the patient has had an indwelling Luna catheter for the past few months which has been changed monthly. 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 The resection site looked clear. There was no surrounding area of tumor. The area of the mass was approximately 5 x 5 cm. At this point, a cold cup biopsy forceps was passed. Multiple biopsies of the mass were taken and sent to pathology as specimen. After adequate biopsies of the mass were taken, a Bugbee electrode was passed. The biopsy sites were then cauterized. The entirety of the mass was then cauterized completely using the Bugbee along with an area of surrounding normal mucosa. Final inspection was then made. There was complete hemostasis. The mass had been adequately treated and there were no other suspicious lesions noted. At this point, the bladder was drained and the cystoscope was removed. The patient tolerated the procedure well. At the end of the surgery, a 20-[place] two-way Luna catheter was inserted and placed to straight bladder drainage. The patient was returned to the supine position and taken to the recovery room awake and in stable condition. Simone Gonzalez MD [facility] # [id number]
== END 2018-12-26 14:45 ==
LOC: SDS 06:29
PROVIDERS: ATTEND Urology
DX: N30.80 Other cystitis without hematuria (principal); R33.9 Retention of urine, unspecified; I25.10 Atherosclerotic heart disease of native coronary artery without angina pectoris; I27.20 Pulmonary hypertension, unspecified; J44.9 Chronic obstructive pulmonary disease, unspecified; Z85.51 Personal history of malignant neoplasm of bladder; Z85.21 Personal history of malignant neoplasm of larynx; Z87.891 Personal history of nicotine dependence; Z92.3 Personal history of irradiation; Z95.1 Presence of aortocoronary bypass graft
CPT/HCPCS: 52235; 88305; J0696; J1170; J2001; J2704; J3010; J7120